=== PATIENT | male | born 1980 | race American Indian/Alaskan Native ===

== ENCOUNTER 2017-04-30 09:05 | Emergency (ER) | payer SELFPAY ==
[2017-04-30 09:15] VITALS: BP 154/117
[2017-04-30] MEDS ORDERED: ZESTRIL PO ONE (09:30)
--- NOTE | 2017-04-30 10:23 | Emergency Department Report ---
Entered by JOSS LOPEZ, acting as scribe for CRESENCIO SALAZAR PA. HPI - General Chief Complaint: Medical Clearance Time Seen by Provider: 04/30/17 09:22 - HPI HPI: 36 y/o male that is nontoxic, well nourished in appearance, no acute signs of distress with a PMHx of HTN presents with c/o a HTN medication refill. Patient states he ran out of Lisinopril 1 week ago. In the ED, patient complains of a mild headache that began this morning,but is now resolved after taking an aspirin earlier. He denies dizziness, blurry vision, chest pain, SOB, abdominal pain, nausea, and vomiting. NKDA ED Past Medical Hx - Past Medical History Previous Medical History?: Yes Hx Hypertension: Yes - Surgical History Past Surgical History?: No - Social History Smoking Status: Current Every Day Smoker Substance Use Type: None - Medications Home Medications: Home Medications Medication Instructions Recorded Confirmed Last Taken Type Nystatin [Nystatin SUSP] 10 ml PO QID #280 ml 09/05/16 Unknown Rx amLODIPine [Norvasc] 10 mg PO DAILY #7 tab 09/05/16 Unknown Rx Lisinopril [Zestril TAB] 20 mg PO QDAY #30 tablet 04/30/17 Unknown Rx ED Review of Systems ROS: Stated complaint: HIGH BP Other details as noted in HPI Comment: All other systems reviewed and negative Constitutional: denies: chills, fever Eyes: denies: eye pain, eye discharge, vision change ENT: denies: ear pain, throat pain Respiratory: denies: cough, shortness of breath, wheezing Cardiovascular: denies: chest pain, palpitations Endocrine: no symptoms reported Gastrointestinal: denies: abdominal pain, nausea, diarrhea Musculoskeletal: denies: back pain, joint swelling, arthralgia Skin: denies: rash, lesions Neurological: headache (mild). denies: weakness, numbness, paresthesias, confusion Physical Exam - Physical Exam Vital Signs: Vital Signs 04/30/17 09:10 Temperature 98.5 F Pulse Rate 92 H Respiratory 20 Rate Blood Pressure 154/117 O2 Sat by Pulse 99 Oximetry General: GENERAL: Patient is alert and oriented x 3. No apparent distress, normal gait, atraumatic. Physical Exam: HEAD: Head is normocephalic and atraumatic. EYES: Extraocular movements are intact. EARS: Symmetrical, atraumatic, non tender. NOSE: Nose symmetrical, nontender. Nares appeared normal. MOUTH:Mouth is well hydrated and without lesions. NECK: Supple. Non edematous, no carotid bruits. No lymphadenopathy or thyromegaly. LUNGS: Symmetrical with respiration. No wheezing, rales or crackles, CTAB. HEART: Regular rate and rhythm with normal S1/S2 present. No murmurs, rubs, or gallops. ABDOMEN: Soft, nondistended. Nontender to palpation on all quadrants. EXTREMITIES/MUSCULOSKELETAL: ROM intact, 2+ pulses in UE/LE, no pitting edema SKIN: Warm and dry. No lesions, ulceration or induration present NEUROLOGIC: No focal deficit. ED Course Vital Signs 04/30/17 09:10 Temperature 98.5 F Pulse Rate 92 H Respiratory 20 Rate Blood Pressure 154/117 O2 Sat by Pulse 99 Oximetry ED Medical Decision Making - Medical Decision Making 36-year-old male presents with medication refill ED course: Patient will be give 1 dose of Lisinopril 20 mg. Normal exam. Patient's blood pressure was stable prior to discharge. Discuss his symptoms return or worsen to return to the ED Patient states understanding and will follow instructions. Vital signs stable. Patient is in no acute distress. Patient had no deficit. States he will follow-up with his primary care physician. Critical care attestation.: If time is entered above; I have spent that time in minutes in the direct care of this critically ill patient, excluding procedure time. ED Disposition Clinical Impression: Medication refill, Chronic hypertension Disposition: DC-01 TO HOME OR SELFCARE Is pt being admited?: No Does the pt Need Aspirin: No Condition: Stable Instructions: Chronic Hypertension (ED), Low Sodium Diet (ED), Hypertension (ED ) Prescriptions: Lisinopril [Zestril TAB] 20 mg PO QDAY #30 tablet Referrals: ALBERT MERCHANT MD [Referring] - 3-5 Days [facility] [Outside] - 3-5 Days [facility] [Outside] - 3-5 Days Forms: Work/School Release Form(ED) This documentation as recorded by the JOHN wilkins JASMINE,accurately reflects the service I personally performed and the decisions made by ,CRESENCIO SALAZAR PA.
== END 2017-04-30 10:08 | disposition home or self-care (01) ==
LOC: ED 09:05
DX: Z76.0 Encounter for issue of repeat prescription (principal); I10 Essential (primary) hypertension; F17.210 Nicotine dependence, cigarettes, uncomplicated
CPT/HCPCS: 99282

== ENCOUNTER 2017-07-14 09:44 | Emergency (ER) | payer SELFPAY ==
--- NOTE | 2017-07-14 12:28 | Emergency Department Report ---
ED General Adult HPI - General Chief complaint: Headache Stated complaint: bAD hEADACHE, HIGH BLOOD PRESSURE Time Seen by Provider: 07/14/17 12:07 Source: patient Mode of arrival: Ambulatory Limitations: No Limitations - History of Present Illness Initial comments: PT c/o being out of his BP medication for a week. PT states he can tell that his bp is elevated because he has been having an intermittent headache x 1 week. PT states he has an appointment with his PCP tomorrow. PT states he works at [employer]. PT states 2 nights ago he was at work, and he did not feel well. 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 PT states his speech has been slurred intermittently x 2 days. PT states last night, he had a headache. PT states he woke up this morning and his R side feels flimsy. PT also states his R hand is swollen. PT states he has a hx of htn and sleep apnea. PT states he does not use a machine for his sleep apnea. PT states he never went to his appointment to have a sleep study. MD Complaint: Headache, HTN -: Gradual, week(s) (one ) Location: head Severity scale (0 -10): 7 Quality: constant Consistency: constant Improves with: medication (ASA - yesterday ) Worsens with: none Associated Symptoms: headaches, weakness. denies: chest pain, fever/chills, nausea/vomiting, syncope - Related Data Previous Rx's Medication Instructions Recorded Last Taken Type Nystatin [Nystatin SUSP] 10 ml PO QID #280 ml 09/05/16 Unknown Rx amLODIPine [Norvasc] 10 mg PO DAILY #7 tab 09/05/16 Unknown Rx Lisinopril [Zestril TAB] 20 mg PO QDAY #30 tablet 07/14/17 Unknown Rx Allergies Allergy/AdvReac Type Severity Reaction Status Date / Time No Known Allergies Allergy Verified 07/14/17 10:18 ED Review of Systems ROS: Stated complaint: bAD hEADACHE, HIGH BLOOD PRESSURE Other details as noted in HPI Comment: All other systems reviewed and negative Constitutional: weakness, other (fatigue ). denies: fever, malaise ENT: denies: ear pain, throat pain, congestion Cardiovascular: denies: chest pain, syncope Gastrointestinal: denies: abdominal pain, nausea, vomiting Musculoskeletal: as per HPI Skin: denies: rash Neurological: headache, weakness, numbness, paresthesias Psychiatric: other (frustrated from working alone and over night ) ED Past Medical Hx - Past Medical History Hx Hypertension: Yes Additional medical history: SLEEP APNEA - Surgical History Past Surgical History?: No - Social History Smoking Status: Current Every Day Smoker Substance Use Type: Alcohol - Medications Home Medications: Home Medications Medication Instructions Recorded Confirmed Last Taken Type Nystatin [Nystatin SUSP] 10 ml PO QID #280 ml 09/05/16 Unknown Rx amLODIPine [Norvasc] 10 mg PO DAILY #7 tab 09/05/16 Unknown Rx Lisinopril [Zestril TAB] 20 mg PO QDAY #30 tablet 07/14/17 Unknown Rx ED Physical Exam - General Limitations: No Limitations General appearance: other (drowsy ) - Head Head exam: Present: atraumatic, normocephalic, normal inspection - Eye Eye exam: Present: normal appearance, PERRL, EOMI. Absent: conjunctival injection, nystagmus, periorbital swelling, periorbital tenderness - ENT ENT exam: Present: normal exam, mucous membranes moist, normal external ear exam - Neck Neck exam: Present: normal inspection, tenderness, full ROM, lymphadenopathy - Respiratory Respiratory exam: Present: normal lung sounds bilaterally. Absent: respiratory distress, wheezes, rales, rhonchi - Cardiovascular Cardiovascular Exam: Present: regular rate, normal rhythm - GI/Abdominal GI/Abdominal exam: Present: soft. Absent: tenderness, guarding, rebound - Extremities Exam Extremities exam: Present: normal inspection, full ROM - Back Exam Back exam: Present: normal inspection, full ROM. Absent: tenderness, CVA tenderness (R), CVA tenderness (L) - Neurological Exam Neurological exam: Present: alert, oriented X3 - Expanded Neurological Exam Expanded Neurological exam: Present: protecting the airway Patient oriented to: Present: person, place, time Speech: Present: fluid speech Cranial nerves: EOM's Intact: Normal Motor strength exam: RUE: 4, LUE: 5 Best Eye Response ([place]): (4) open spontaneously Best Motor Response ([place]): (6) obeys commands Best Verbal Response (Sophia): (5) oriented Sophia Total: 15 - Psychiatric Psychiatric exam: Present: normal affect, normal mood - Skin Skin exam: Present: warm, dry, intact, normal color ED Course Vital Signs 07/14/17 10:20 Temperature 97.5 F L Pulse Rate 84 Respiratory 18 Rate Blood Pressure 148/110 O2 Sat by Pulse 98 Oximetry - Reevaluation(s) Reevaluation #1: 07/14/17 12:33 PT aware of plan of care. Reevaluation #2: 07/14/17 16:11 PT has been walking out of his room. Multiple times we were unable to locate pt. PT has been directed to stay in room for labs/ imaging/ reassessment. At one point pt was sitting in the hallway playing [employer]. Reevaluation #3: 07/14/17 16:25 PT not in room Reevaluation #4: 07/14/17 17:15 PT has not returned to his exam room. Reevaluation #5: 07/14/17 17:48 PT walked back to FT. PT states he has not seen anyone and he wants his dc paperwork and his RXs. PT requesting a work note. PT aware that work up is not complete. Nursing staff unable to get EKG on pt or repeat his bp due to him not staying in his exam room. PT states he went downstairs and fell asleep. PT aware he will need to follow up with PCP. - Pulse Oximetry Interpretation Digit-Finger Initial Pulse Oximetry Readin Actions Taken: none ED Medical Decision Making - Lab Data Result diagrams: 07/14/17 12:26 07/14/17 12:26 Lab Results 07/14/17 07/14/17 07/14/17 Range/Units 12:26 12:26 12:26 WBC 11.3 H (4.5-11.0) K/mm3 RBC 4.65 (3.65-5.03) M/mm3 Hgb 14.2 (11.8-15.2) gm/dl Hct 42.4 (35.5-45.6) % MCV 91 (84-94) fl MCH 31 (28-32) pg MCHC 34 (32-34) % RDW 13.4 (13.2-15.2) % Plt Count 236 (140-440) K/mm3 Lymph % (Auto) 22.9 (13.4-35.0) % [place] % (Auto) 6.5 (0.0-7.3) % Eos % (Auto) 2.6 (0.0-4.3) % Baso % (Auto) 0.5 (0.0-1.8) % Lymph # 2.6 (1.2-5.4) K/mm3 [place] # 0.7 (0.0-0.8) K/mm3 Eos # 0.3 (0.0-0.4) K/mm3 Baso # 0.1 (0.0-0.1) K/mm3 Seg Neutrophils % 67.5 (40.0-70.0) % Seg Neutrophils # 7.6 (1.8-7.7) K/mm3 PT 12.5 (12.2-14.9) Sec. INR 0.94 (0.87-1.13) APTT 31.9 (24.2-36.6) Sec. Sodium 138 (137-145) mmol/L Potassium 3.8 (3.6-5.0) mmol/L Chloride 98.2 (98-107) mmol/L Carbon Dioxide 30 (22-30) mmol/L Anion Gap 14 mmol/L BUN 16 (9-20) mg/dL Creatinine 1.1 (0.8-1.5) mg/dL Estimated GFR > 60 ml/min BUN/Creatinine Ratio 14.54 % Glucose 73 L (75-100) mg/dL Calcium 9.3 (8.4-10.2) mg/dL Total Bilirubin 0.40 (0.1-1.2) mg/dL AST 22 (5-40) units/L ALT 18 (7-56) units/L Alkaline Phosphatase 46 (35-129) units/L Total Creatine Kinase 483 H (55-170) units/L CK-MB (CK-2) 7.4 H (0.0-4.0) ng/mL CK-MB (CK-2) Rel Index 1.5 (0-4) Troponin T < 0.010 (0.00-0.029) ng/mL Total Protein 7.3 (6.3-8.2) g/dL Albumin 3.9 (3.9-5) g/dL Albumin/Globulin Ratio 1.1 % Urine Color (Yellow) Urine Turbidity (Clear) Urine pH (5.0-7.0) Ur Specific [place] (1.003-1.030) Urine Protein (Negative) mg/dL Urine Glucose (UA) (Negative) mg/dL Urine Ketones (Negative) mg/dL Urine Blood (Negative) Urine Nitrite (Negative) Urine Bilirubin (Negative) Urine Urobilinogen (<2.0) mg/dL Ur Leukocyte Esterase (Negative) Urine WBC (Auto) (0.0-6.0) /HPF Urine RBC (Auto) (0.0-6.0) /HPF U Epithel Cells (Auto) (0-13.0) /HPF Urine Mucus /HPF Urine Opiates Screen Urine Methadone Screen Ur Barbiturates Screen Ur Phencyclidine Scrn Ur Amphetamines Screen U Benzodiazepines Scrn Urine Cocaine Screen U Marijuana (THC) Screen Drugs of Abuse Note Plasma/Serum Alcohol (0-0.07) gm% 07/14/17 07/14/17 07/14/17 Range/Units 12:26 15:30 15:30 WBC (4.5-11.0) K/mm3 RBC (3.65-5.03) M/mm3 Hgb (11.8-15.2) gm/dl Hct (35.5-45.6) % MCV (84-94) fl MCH (28-32) pg MCHC (32-34) % RDW (13.2-15.2) % Plt Count (140-440) K/mm3 Lymph % (Auto) (13.4-35.0) % [place] % (Auto) (0.0-7.3) % Eos % (Auto) (0.0-4.3) % Baso % (Auto) (0.0-1.8) % Lymph # (1.2-5.4) K/mm3 [place] # (0.0-0.8) K/mm3 Eos # (0.0-0.4) K/mm3 Baso # (0.0-0.1) K/mm3 Seg Neutrophils % (40.0-70.0) % Seg Neutrophils # (1.8-7.7) K/mm3 PT (12.2-14.9) Sec. INR (0.87-1.13) APTT (24.2-36.6) Sec. Sodium (137-145) mmol/L Potassium (3.6-5.0) mmol/L Chloride (98-107) mmol/L Carbon Dioxide (22-30) mmol/L Anion Gap mmol/L BUN (9-20) mg/dL Creatinine (0.8-1.5) mg/dL Estimated GFR ml/min BUN/Creatinine Ratio % Glucose (75-100) mg/dL Calcium (8.4-10.2) mg/dL Total Bilirubin (0.1-1.2) mg/dL AST (5-40) units/L ALT (7-56) units/L Alkaline Phosphatase (35-129) units/L Total Creatine Kinase (55-170) units/L CK-MB (CK-2) (0.0-4.0) ng/mL CK-MB (CK-2) Rel Index (0-4) Troponin T (0.00-0.029) ng/mL Total Protein (6.3-8.2) g/dL Albumin (3.9-5) g/dL Albumin/Globulin Ratio % Urine Color Yellow (Yellow) Urine Turbidity Clear (Clear) Urine pH 5.0 (5.0-7.0) Ur Specific [place] 1.025 (1.003-1.030) Urine Protein <15 mg/dl (Negative) mg/dL Urine Glucose (UA) Neg (Negative) mg/dL Urine Ketones Neg (Negative) mg/dL Urine Blood Neg (Negative) Urine Nitrite Neg (Negative) Urine Bilirubin Neg (Negative) Urine Urobilinogen < 2.0 (<2.0) mg/dL Ur Leukocyte Esterase Neg (Negative) Urine WBC (Auto) 1.0 (0.0-6.0) /HPF Urine RBC (Auto) 2.0 (0.0-6.0) /HPF U Epithel Cells (Auto) < 1.0 (0-13.0) /HPF Urine Mucus Few /HPF Urine Opiates Screen Presumptive negative Urine Methadone Screen Presumptive negative Ur Barbiturates Screen Presumptive negative Ur Phencyclidine Scrn Presumptive negative Ur Amphetamines Screen Presumptive positive U Benzodiazepines Scrn Presumptive negative Urine Cocaine Screen Presumptive negative U Marijuana (THC) Screen Presumptive negative Drugs of Abuse Note Disclamer Plasma/Serum Alcohol < 0.01 (0-0.07) gm% - Radiology Data Radiology results: report reviewed CT head - NAP - Differential Diagnosis cva, non compliance, drug use, Critical Care Time: No Critical care attestation.: If time is entered above; I have spent that time in minutes in the direct care of this critically ill patient, excluding procedure time. ED Disposition Clinical Impression: Non compliance with medical treatment, Amphetamine abuse Hypertension Qualifiers: Hypertension type: essential hypertension Qualified Code(s): I10 - Essential ( primary) hypertension Disposition: LEFT AGAINST MED ADVICE Is pt being admited?: No Does the pt Need Aspirin: No Condition: Stable Instructions: Hypertension (ED) Additional Instructions: Follow up with PCP in the next 3 days for BP recheck Return to the ED if worsening or concerns Avoid stimulants/ caffeine as these can raise your bp Prescriptions: Lisinopril [Zestril TAB] 20 mg PO QDAY #30 tablet Referrals: PRIMARY CAREMD [Primary Care Provider] - 3-5 Days MARISSA GILL MD [Staff Physician] - 3-5 Days [facility] [Outside] - 3-5 Days Forms: AMA Form, Work/School Release Form(ED) Time of Disposition: 17:16
[2017-07-14 12:44] LABS: Basophils % (Auto) 0.5 % (0.0-1.8); Eosinophils % (Auto) 2.6 % (0.0-4.3); Hematocrit 42.4 % (35.5-45.6); Hemoglobin 14.2 gm/dl (11.8-15.2); Mean Corpuscular HGB Conc 34 % (32-34); Mean Corpuscular Hemoglobin 31 pg (28-32); Mean Corpuscular Volume 91 fl (84-94); Platelet Count 236 K/mm3 (140-440); Red Blood Count 4.65 M/mm3 (3.65-5.03); Red Cell Distribution Width 13.4 % (13.2-15.2); White Blood Count 11.3 K/mm3 (4.5-11.0)
[2017-07-14 12:53] LABS: INR 0.94 (0.87-1.13)
[2017-07-14 12:54] LABS: Partial Thromboplastin Time 31.9 Sec. (24.2-36.6)
[2017-07-14 13:06] LABS: Creatine Kinase MB 7.4 ng/mL (0.0-4.0)
[2017-07-14 13:07] LABS: Alanine Aminotransferase 18 units/L (7-56); Albumin 3.9 g/dL (3.9-5); Albumin/Globulin Ratio 1.1 %; Alkaline Phosphatase 46 units/L (35-129); Anion Gap 14 mmol/L; BUN/Creatinine Ratio 14.54; Blood Urea Nitrogen 16 mg/dL (9-20); Calcium 9.3 mg/dL (8.4-10.2); Carbon Dioxide 30 mmol/L (22-30); Chloride 98.2 mmol/L (98-107); Creatine Kinase 483 units/L (55-170); Glucose 73 mg/dL (75-100); Potassium 3.8 mmol/L (3.6-5.0); Sodium 138 mmol/L (137-145); Total Protein 7.3 g/dL (6.3-8.2)
--- NOTE | 2017-07-14 13:11 | Cat Scan Report ---
CT scan of head without IV contrast: History: Hypertension, such lower speech. Right sided weakness. Findings: Ventricles are normal in size and midline in location. No evidence of acute ischemia, hemorrhage or mass. No extra-axial fluid collection. Normal brainstem and cerebellum. 1 cm retention cyst medial wall of right maxillary sinus. Mucosal thickening left maxillary sinus. Normal mastoid. Impression: No acute intracranial abnormality. Sinus disease.
[2017-07-14 15:31] LABS: Urine Drugs of Abuse Note Disclamer
[2017-07-14 15:49] LABS: Bilirubin,Urine NEG (Negative); Blood,Urine NEG (Negative); Ketones,Urine NEG (Negative); Leukocyte Esterase,Urine NEG (Negative); Mucus,Urine FEW /HPF; Nitrite,Urine NEG (Negative); Protein,Urine <15 mg/dL mg/dL (Negative); Urobilinogen,Urine < 2.0 mg/dL (<2.0)
[2017-07-14 19:09] VITALS: BP 155/95
== END 2017-07-14 17:50 | disposition left against medical advice (07) ==
LOC: ED 09:44
DX: I10 Essential (primary) hypertension (principal); F15.10 Other stimulant abuse, uncomplicated; F17.210 Nicotine dependence, cigarettes, uncomplicated
CPT/HCPCS: 36415; 70450; 80053; 80307; 81001; 82550; 82553; 84484; 85025; 85610; 85730; 99284; G0480; 80320

== ENCOUNTER 2019-02-13 21:43 | Emergency (ER) | payer SELFPAY ==
--- NOTE | 2019-02-13 21:53 | Emergency Department Report ---
Blank Doc - Documentation Documentation: This is a 38-year-old male that presents with a foreign body sensation to right eye. Patient stated he believes that a glass particle hit his eye. Denies any visual changes. This initial assessment/diagnostic orders/clinical plan/treatment(s) is/are subject to change based on patient's health status, clinical progression and re- assessment by fellow clinical providers in the ED. Further treatment and workup at subsequent clinical providers discretion. Patient/guardians urged not to elope from the ED as their condition may be serious if not clinically assessed and managed. Initial orders include: 1- Patient sent to [facility] for further evaluation and treatment 2- monet lamp
[2019-02-14] MEDS ORDERED: BSS OU ONE (00:42)
[2019-02-14] MEDS ORDERED: FUL-GLO OP ONE (00:42)
--- NOTE | 2019-02-14 01:00 | Emergency Department Report ---
ED Eye Problem HPI - General Chief complaint: Eye Problems Stated complaint: POSS GLASS IN R EYE Time Seen by Provider: 02/13/19 21:51 Source: patient Mode of arrival: Ambulatory Limitations: No Limitations - History of Present Illness chief complaint: eye pain, eye redness, eye injury -: hour(s) Location: left eye Place: work (glass broke on the floor at work and popped up to his right calls and pain with blinking irritation. He tried to rinse the eye out with warm water and salt water, but continues to have a foreign body sensation and some pain. No blurry vision. No bleeding) Severity: mild Consistency: constant Associated Symptoms: none Treatments Prior to Arrival: none - Related Data Previous Rx's Medication Instructions Recorded Last Taken Type Nystatin [Nystatin SUSP] 10 ml PO QID #280 ml 09/05/16 Unknown Rx amLODIPine [Norvasc] 10 mg PO DAILY #7 tab 09/05/16 Unknown Rx Lisinopril [Zestril TAB] 20 mg PO QDAY #30 tablet 07/14/17 Unknown Rx Ketorolac Tromethamine [Ketorolac 1 drop OP Q8HR #5 ml 02/14/19 Unknown Rx Tromethamine 0.4% opth soln] Tobramycin [Tobrex] 1 drop OP Q4H #1 bottle 02/14/19 Unknown Rx Allergies Allergy/AdvReac Type Severity Reaction Status Date / Time No Known Allergies Allergy Verified 07/14/17 10:18 ED Review of Systems ROS: Stated complaint: POSS GLASS IN R EYE Other details as noted in HPI Constitutional: denies: chills, fever Eyes: denies: eye pain, eye discharge, vision change ENT: denies: ear pain, throat pain Respiratory: denies: cough, shortness of breath, wheezing Cardiovascular: denies: chest pain, palpitations Endocrine: no symptoms reported Gastrointestinal: denies: abdominal pain, nausea, diarrhea Genitourinary: denies: urgency, dysuria Musculoskeletal: denies: back pain, joint swelling, arthralgia Skin: denies: rash, lesions Neurological: denies: headache, weakness, paresthesias Psychiatric: denies: anxiety, depression Hematological/Lymphatic: denies: easy bleeding, easy bruising ED Past Medical Hx - Past Medical History Previous Medical History?: Yes Hx Hypertension: Yes Additional medical history: SLEEP APNEA - Surgical History Past Surgical History?: No - Social History Smoking Status: Current Every Day Smoker Substance Use Type: None - Medications Home Medications: Home Medications Medication Instructions Recorded Confirmed Last Taken Type Nystatin [Nystatin SUSP] 10 ml PO QID #280 ml 09/05/16 Unknown Rx amLODIPine [Norvasc] 10 mg PO DAILY #7 tab 09/05/16 Unknown Rx Lisinopril [Zestril TAB] 20 mg PO QDAY #30 tablet 07/14/17 Unknown Rx Ketorolac Tromethamine [Ketorolac 1 drop OP Q8HR #5 ml 02/14/19 Unknown Rx Tromethamine 0.4% opth soln] Tobramycin [Tobrex] 1 drop OP Q4H #1 bottle 02/14/19 Unknown Rx ED Physical Exam - General Limitations: No Limitations General appearance: alert, in no apparent distress - Head Head exam: Present: atraumatic, normocephalic - Eye Eye exam: Present: normal appearance, PERRL, EOMI, conjunctival injection Pupils: Present: normal accommodation - Expanded Eye Exam Expanded Pupils: Regular, Round: Bilateral, Reactive: Bilateral Sclera/Conjunctival: Injection: Right (small area of corneal abrasion. Conjunctiva not involving the pupil.) - ENT ENT exam: Present: normal exam, normal orophraynx, mucous membranes moist, TM's normal bilaterally - Neck Neck exam: Present: normal inspection, full ROM - Respiratory Respiratory exam: Present: normal lung sounds bilaterally. Absent: respiratory distress, rhonchi, stridor, chest wall tenderness, decreased breath sounds, prolonged expiratory - Cardiovascular Cardiovascular Exam: Present: regular rate, normal rhythm. Absent: systolic murmur, diastolic murmur, rubs, gallop - GI/Abdominal GI/Abdominal exam: Present: soft, normal bowel sounds. Absent: tenderness, guarding, hyperactive bowel sounds, hypoactive bowel sounds - Rectal Rectal exam: Present: deferred - Extremities Exam Extremities exam: Present: normal inspection, full ROM, normal capillary refill. Absent: pedal edema, joint swelling - Back Exam Back exam: Present: normal inspection - Neurological Exam Neurological exam: Present: alert, oriented X3, CN II-XII intact - Psychiatric Psychiatric exam: Present: normal affect, normal mood - Skin Skin exam: Present: warm, dry, intact, normal color. Absent: rash ED Course Vital Signs 02/13/19 21:50 Temperature 98.6 F Pulse Rate 95 H Respiratory 20 Rate Blood Pressure 180/118 O2 Sat by Pulse 93 Oximetry Critical care attestation.: If time is entered above; I have spent that time in minutes in the direct care of this critically ill patient, excluding procedure time. ED Disposition Clinical Impression: Corneal abrasion, Eye irritation Disposition: DC-01 TO HOME OR SELFCARE Is pt being admited?: No Does the pt Need Aspirin: No Condition: Stable Instructions: How to Use Eye Drops (ED), Eye Pain (ED) Additional Instructions: 3. Be sure to follow-up with ophthalmology in 24-48 hours
[2019-02-14 01:36] VITALS: BP 188/132
== END 2019-02-14 01:38 | disposition home or self-care (01) ==
LOC: ED 21:43
DX: S05.01XA Injury of conjunctiva and corneal abrasion without foreign body, right eye, initial encounter (principal); I10 Essential (primary) hypertension; F17.200 Nicotine dependence, unspecified, uncomplicated; X58.XXXA Exposure to other specified factors, initial encounter; Y93.89 Activity, other specified; Y92.89 Other specified places as the place of occurrence of the external cause; Y99.8 Other external cause status

== ENCOUNTER 2019-06-26 13:03 | Emergency (ER) | payer OTHER ==
--- NOTE | 2019-06-26 13:11 | Emergency Department Report ---
Blank Doc - Documentation Documentation: This is a 38-year-old male that presents with CP and SOB. This initial assessment/diagnostic orders/clinical plan/treatment(s) is/are subject to change based on patient's health status, clinical progression and re- assessment by fellow clinical providers in the ED. Further treatment and workup at subsequent clinical providers discretion. Patient/guardians urged not to elope from the ED as their condition may be serious if not clinically assessed and managed. Initial orders include: 1- Patient sent to [facility] for further evaluation and treatment 2- labs 3- EKG 4- CXR
[2019-06-26 13:27] LABS: Basophils # (Auto) 0.1 K/mm3 (0.0-0.1); Basophils % (Auto) 0.7 % (0.0-1.8); Eosinophils # (Auto) 0.1 K/mm3 (0.0-0.4); Eosinophils % (Auto) 1.3 % (0.0-4.3); Hematocrit 42.3 % (35.5-45.6); Lymphocytes # (Auto) 3.5 K/mm3 (1.2-5.4); Lymphocytes % (Auto) 33.6 % (13.4-35.0); Mean Corpuscular HGB Conc 33 % (32-34); Mean Corpuscular Volume 93 fl (84-94); Monocytes # (Auto) 0.6 K/mm3 (0.0-0.8); Monocytes % (Auto) 5.7 % (0.0-7.3); Platelet Count 206 K/mm3 (140-440); Red Blood Count 4.57 M/mm3 (3.65-5.03); Red Cell Distribution Width 13.8 % (13.2-15.2)
[2019-06-26 13:37] LABS: INR 1.07 (0.87-1.13)
--- NOTE | 2019-06-26 13:37 | XRay Report ---
CHEST 2 VIEWS INDICATION: Chest Pain. COMPARISON: None FINDINGS: Support devices: None. Heart: Mild cardiomegaly. Lungs/pleura: Mild central pulmonary venous congestion is identified. No evidence for infiltrate, pl eural effusion or pneumothorax. Additional findings: None. IMPRESSION: Mild cardiomegaly and central pulmonary venous congestion. Signer Name: Obed Lucero Jr, MD Signed: 06/26/2019 1:33 PM Workstation Name: [id number]
[2019-06-26 13:38] LABS: Partial Thromboplastin Time 28.8 Sec. (24.2-36.6)
[2019-06-26 13:55] LABS: BUN/Creatinine Ratio 13; Blood Urea Nitrogen 17 mg/dL (9-20); Calcium 8.6 mg/dL (8.4-10.2); Hemolysis Index 7
[2019-06-26] MEDS ORDERED: APRESOLINE PO ONE (17:44)
[2019-06-26] MEDS ORDERED: LASIX IV ONE (19:00)
--- NOTE | 2019-06-26 19:33 | Emergency Department Report ---
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 He'll) Consistency: intermittent Improves With: rest Worsens With: nothing Known History Of: other (HTN, Sleep Apnea ) Context: recent URI Associated Symptoms: chest pain, cough Treatments Prior to Arrival: none - Related Data Previous Rx's Medication Instructions Recorded Last Taken Type Nystatin [Nystatin SUSP] 10 ml PO QID #280 ml 09/05/16 Unknown Rx amLODIPine [Norvasc] 10 mg PO DAILY #7 tab 09/05/16 Unknown Rx Lisinopril [Zestril TAB] 20 mg PO QDAY #30 tablet 07/14/17 Unknown Rx Ketorolac Tromethamine [Ketorolac 1 drop OP Q8HR #5 ml 02/14/19 Unknown Rx Tromethamine 0.4% opth soln] Tobramycin [Tobrex] 1 drop OP Q4H #1 bottle 02/14/19 Unknown Rx Furosemide [Lasix TAB] 40 mg PO QDAY #3 tablet 06/26/19 Unknown Rx Lisinopril [Zestril TAB] 20 mg PO QDAY #30 tablet 06/26/19 Unknown Rx amLODIPine [Norvasc] 10 mg PO DAILY 30 Days #30 tab 06/26/19 Unknown Rx Allergies Allergy/AdvReac Type Severity Reaction Status Date / Time No Known Allergies Allergy Verified 07/14/17 10:18 ED Review of Systems ROS: Stated complaint: SOB/CHEST PAIN Other details as noted in HPI Constitutional: denies: chills, fever Eyes: denies: eye pain, eye discharge, vision change ENT: denies: ear pain, throat pain Respiratory: cough, shortness of breath. denies: orthopnea, wheezing Cardiovascular: chest pain. denies: palpitations, dyspnea on exertion, orthopnea, paroxysmal nocturnal dyspnea Endocrine: no symptoms reported Gastrointestinal: denies: abdominal pain, nausea, diarrhea Genitourinary: denies: urgency, dysuria Musculoskeletal: denies: back pain, joint swelling, arthralgia Skin: denies: rash, lesions Neurological: denies: headache, weakness, paresthesias Psychiatric: denies: anxiety, depression Hematological/Lymphatic: denies: easy bleeding, easy bruising ED Past Medical Hx - Past Medical History Previous Medical History?: Yes Hx Hypertension: Yes Additional medical history: SLEEP APNEA - Social History Smoking Status: Never Smoker Substance Use Type: None - Medications Home Medications: Home Medications Medication Instructions Recorded Confirmed Last Taken Type Nystatin [Nystatin SUSP] 10 ml PO QID #280 ml 09/05/16 Unknown Rx amLODIPine [Norvasc] 10 mg PO DAILY #7 tab 09/05/16 Unknown Rx Lisinopril [Zestril TAB] 20 mg PO QDAY #30 tablet 07/14/17 Unknown Rx Ketorolac Tromethamine [Ketorolac 1 drop OP Q8HR #5 ml 02/14/19 Unknown Rx Tromethamine 0.4% opth soln] Tobramycin [Tobrex] 1 drop OP Q4H #1 bottle 02/14/19 Unknown Rx Furosemide [Lasix TAB] 40 mg PO QDAY #3 tablet 06/26/19 Unknown Rx Lisinopril [Zestril TAB] 20 mg PO QDAY #30 tablet 06/26/19 Unknown Rx amLODIPine [Norvasc] 10 mg PO DAILY 30 Days #30 tab 06/26/19 Unknown Rx ED Physical Exam - General Limitations: No Limitations General appearance: alert, in no apparent distress - Head Head exam: Present: atraumatic, normocephalic - Eye Eye exam: Present: normal appearance, PERRL, EOMI Pupils: Present: normal accommodation - ENT ENT exam: Present: mucous membranes moist. Absent: normal orophraynx, TM's normal bilaterally, normal external ear exam - Neck Neck exam: Present: normal inspection, full ROM. Absent: tenderness, lymphadenopathy, thyromegaly - Expanded Neck Exam Expanded Neck exam: Absent: tenderness, midline deformity, anterior neck swelling, thyroid mass, carotid bruit, tracheal deviation - Respiratory Respiratory exam: Present: normal lung sounds bilaterally. Absent: respiratory distress, wheezes, rales, rhonchi, stridor, chest wall tenderness - Cardiovascular Cardiovascular Exam: Present: regular rate, normal rhythm, normal heart sounds. Absent: systolic murmur, diastolic murmur, rubs, gallop, JVD - GI/Abdominal GI/Abdominal exam: Present: soft, normal bowel sounds. Absent: distended, tenderness, bruit, hernia - Rectal Rectal exam: Present: deferred - Extremities Exam Extremities exam: Present: normal inspection, full ROM, normal capillary refill. Absent: tenderness, pedal edema, calf tenderness - Back Exam Back exam: Present: normal inspection, full ROM. Absent: tenderness, CVA tenderness (R), CVA tenderness (L), rash noted - Neurological Exam Neurological exam: Present: alert, oriented X3, CN II-XII intact, normal gait, reflexes normal. Absent: motor sensory deficit - Psychiatric Psychiatric exam: Present: normal affect, normal mood - Skin Skin exam: Present: warm, dry, intact, normal color. Absent: rash ED Course Vital Signs 06/26/19 06/26/19 13:30 18:21 Temperature 97.7 F Pulse Rate 108 H 99 H Respiratory 19 Rate Blood Pressure 144/117 Blood Pressure 153/119 [Left] O2 Sat by Pulse 97 Oximetry ED Medical Decision Making - Lab Data Result diagrams: 06/26/19 13:16 06/26/19 13:16 Labs 06/26/19 06/26/19 06/26/19 13:16 13:16 13:16 WBC 10.3 RBC 4.57 Hgb 14.0 Hct 42.3 MCV 93 MCH 31 MCHC 33 RDW 13.8 Plt Count 206 Lymph % (Auto) 33.6 [place] % (Auto) 5.7 Eos % (Auto) 1.3 Baso % (Auto) 0.7 Lymph # 3.5 [place] # 0.6 Eos # 0.1 Baso # 0.1 Seg Neutrophils % 58.7 Seg Neutrophils # 6.1 PT 13.6 INR 1.07 APTT 28.8 Sodium 142 Potassium 4.0 Chloride 105.7 Carbon Dioxide 28 Anion Gap 12 BUN 17 Creatinine 1.3 Estimated GFR > 60 BUN/Creatinine Ratio 13 Glucose 112 H Calcium 8.6 Troponin T < 0.010 NT-Pro-B Natriuret Pep 06/26/19 06/26/19 15:34 17:59 WBC RBC Hgb Hct MCV MCH MCHC RDW Plt Count Lymph % (Auto) [place] % (Auto) Eos % (Auto) Baso % (Auto) Lymph # [place] # Eos # Baso # Seg Neutrophils % Seg Neutrophils # PT INR APTT Sodium Potassium Chloride Carbon Dioxide Anion Gap BUN Creatinine Estimated GFR BUN/Creatinine Ratio Glucose Calcium Troponin T < 0.010 NT-Pro-B Natriuret Pep 2048 H - EKG Data EKG shows normal: sinus rhythm - EKG Data Interpretation: no acute changes, LVH, other (EKG interp by ed attending no ST Elevated [place]) - Radiology Data Radiology results: report reviewed, image reviewed Ordering Physician: LEONEL ALANIZ NP Date of Service: 06/26/19 Procedure(s): XR chest routine 2V Accession Number(s): [id number] cc: LEONEL ALANIZ NP Fluoro Time In Minutes: CHEST 2 VIEWS INDICATION: Chest Pain. COMPARISON: None FINDINGS: Support devices: None. Heart: Mild cardiomegaly. Lungs/pleura: Mild central pulmonary venous congestion is identified. No evidence for infiltrate, pleural effusion or pneumothorax. Additional findings: None. IMPRESSION: Mild cardiomegaly and central pulmonary venous congestion. Signer Name: Obed Lucero Jr, MD Signed: 06/26/2019 1:33 PM Workstation Name: [id number] Transcribed By: TTR Dictated By: OBED LUCERO JR, MD Electronically Authenticated By: OBED LUCERO JR, MD Signed Date/Time: 06/26/191332 DD/ 133 TD/TT: - Medical Decision Making 6N Nichol with mild venous pulmonary congestion no pleural effusion disease no infiltrates BNP noted at 2048 patient offered admission declines same advises he will follow up outpatient symptoms improved after Lasix and hydralazine plan refill BP medications Lasix by mouth 3 days follow-up with cardiology follow-up with PCP return to ED should symptoms worsen lung sounds are currently clear patient is ambulatory throughout ED without increased shortness of breath there is no crackles no wheezing no rhonchi there is no chest pain heart score is 2 for history and risk factors , PERC score is 0, this is not a PE , patient is alert oriented ambulatory with no acute distress at this time Critical care attestation.: If time is entered above; I have spent that time in minutes in the direct care of this critically ill patient, excluding procedure time. ED Disposition Clinical Impression: SOB (shortness of breath) HTN (hypertension) Qualifiers: Hypertension type: essential hypertension Qualified Code(s): I10 - Essential (primary) hypertension Disposition: TO HOME OR SELFCARE Is pt being admited?: No Does the pt Need Aspirin: No Condition: Stable Instructions: Hypertension (ED), Chest Pain (ED) Prescriptions: Furosemide [Lasix TAB] 40 mg PO QDAY #3 tablet amLODIPine [Norvasc] 10 mg PO DAILY 30 Days #30 tab Lisinopril [Zestril TAB] 20 mg PO QDAY #30 tablet Referrals: APRIL CLEANING MD [Staff Physician] - MOHIT TONO SY MD [Staff Physician] - MOHIT Forms: Work/School Release Form(ED) Time of Disposition: 20:17
[2019-06-26 20:28] VITALS: BP 140/100
== END 2019-06-26 20:27 | disposition home or self-care (01) ==
LOC: ED 13:03
DX: R06.02 Shortness of breath (principal); I10 Essential (primary) hypertension; G47.30 Sleep apnea, unspecified; Z99.89 Dependence on other enabling machines and devices; Z79.899 Other long term (current) drug therapy
CPT/HCPCS: 36415; 71046; 80048; 83880; 84484; 85025; 85610; 85730; 93005; 93010; 96374; 99284; J1940

== ENCOUNTER 2019-06-27 08:30 | Inpatient (IN) | payer MEDICARE, OTHER ==
[2019-06-27] MEDS ORDERED: LASIX PO ONE (09:17)
[2019-06-27 09:48] LABS: Basophils # (Auto) 0.1 K/mm3 (0.0-0.1); Basophils % (Auto) 0.8 % (0.0-1.8); Eosinophils # (Auto) 0.2 K/mm3 (0.0-0.4); Eosinophils % (Auto) 1.7 % (0.0-4.3); Hematocrit 41.7 % (35.5-45.6); Hemoglobin 14.1 gm/dl (11.8-15.2); Lymphocytes # (Auto) 2.1 K/mm3 (1.2-5.4); Lymphocytes % (Auto) 19.3 % (13.4-35.0); Mean Corpuscular HGB Conc 34 % (32-34); Mean Corpuscular Volume 92 fl (84-94); Monocytes # (Auto) 0.6 K/mm3 (0.0-0.8); Monocytes % (Auto) 5.3 % (0.0-7.3); Platelet Count 193 K/mm3 (140-440); Red Blood Count 4.53 M/mm3 (3.65-5.03); Red Cell Distribution Width 13.6 % (13.2-15.2)
--- NOTE | 2019-06-27 10:14 | XRay Report ---
CHEST 2 VIEWS INDICATION / CLINICAL INFORMATION: evaluation of pulmn edema. COMPARISON: 06/26/2019 FINDINGS: SUPPORT DEVICES: None. HEART / MEDIASTINUM: Stable mild cardiomegaly with pulmonary venous hypertension LUNGS / PLEURA: No significant pulmonary or pleural abnormality. No pneumothorax. ADDITIONAL FINDINGS: No significant additional findings. IMPRESSION: 1. Cardiomegaly and pulmonary venous hypertension without pulmonary edema, no change. Signer Name: Wing Armendariz MD Signed: 06/27/2019 10:10 AM Workstation Name: [id number]
[2019-06-27 11:06] LABS: BUN/Creatinine Ratio 15; Blood Urea Nitrogen 20 mg/dL (9-20); Calcium 8.5 mg/dL (8.4-10.2); Hemolysis Index 44
--- NOTE | 2019-06-27 11:37 | Consultation ---
History of Present Illness Consult date: 06/27/19 Requesting physician: LACHELLE THORPE Consult reason: congestive heart failure History of present illness: Patient is a 38-year-old male with a history of hypertension, suspected sleep apnea, tobacco use, ETOH use. He is previously unknown to our practice. He presented with c/o SOB. Pt actually presented to ED yesterday with c/o SOB, orthopnea and PND for the past several days. He did not wish to be hospitalized yesterday so he received IV lasix and was sent home. He returns today stating that he now wishes to be hospitalized. Pt denies any chest pain, edema, palpitations, n/v, diaphoresis, dizziness or syncope. Pt denies any known prior CAD, AMI, HF or arrhythmia, although he does not regularly see doctors. [place] and has had some annual physicals done at work and this is how he knows he has HTN. Pt does not currently take any prescription medications. Past History Past Medical History: hypertension, other (suspected DIANN) Social history: smoking, alcohol abuse Medications and Allergies Allergies Allergy/AdvReac Type Severity Reaction Status Date / Time No Known Allergies Allergy Verified 07/14/17 10:18 Home Medications Medication Instructions Recorded Confirmed Last Taken Type Nystatin [Nystatin SUSP] 10 ml PO QID #280 ml 09/05/16 Unknown Rx amLODIPine [Norvasc] 10 mg PO DAILY #7 tab 09/05/16 Unknown Rx Lisinopril [Zestril TAB] 20 mg PO QDAY #30 tablet 07/14/17 Unknown Rx Ketorolac Tromethamine [Ketorolac 1 drop OP Q8HR #5 ml 02/14/19 Unknown Rx Tromethamine 0.4% opth soln] Tobramycin [Tobrex] 1 drop OP Q4H #1 bottle 02/14/19 Unknown Rx Furosemide [Lasix TAB] 40 mg PO QDAY #3 tablet 06/26/19 Unknown Rx Lisinopril [Zestril TAB] 20 mg PO QDAY #30 tablet 06/26/19 Unknown Rx amLODIPine [Norvasc] 10 mg PO DAILY 30 Days #30 tab 06/26/19 Unknown Rx Review of Systems Constitutional: no weight loss, no weight gain, no fever, no chills, no sweats Ears, nose, mouth and throat: no ear pain, no nose pain, no sinus pressure, no sinus pain Cardiovascular: orthopnea, shortness of breath, dyspnea on exertion, paroxysmal nocturnal dyspnea, high blood pressure, no chest pain, no palpitations, no rapid/irregular heart beat, no edema, no syncope, no lightheadedness, no leg edema Respiratory: shortness of breath, dyspnea on exertion, no cough, no congestion, no wheezing, no pain on inspiration Gastrointestinal: no abdominal pain, no nausea, no vomiting, no diarrhea, no constipation, no change in bowel habits Genitourinary Male: no dysuria, no hematuria, no flank pain, no discharge, no urinary frequency, no urinary hesitancy Musculoskeletal: no neck stiffness, no neck pain, no shooting arm pain, no arm numbness/tingling, no low back pain, no shooting leg pain Integumentary: no rash, no pruritis, no redness, no sores, no wounds Neurological: no head injury, no paralysis, no weakness, no parathesias, no numbness, no tingling, no seizures, no syncope Psychiatric: no anxiety Endocrine: no cold intolerance, no heat intolerance Hematologic/Lymphatic: no easy bruising, no easy bleeding Allergic/Immunologic: no urticaria, no wheezing Physical Examination Vital Signs Temp Pulse Resp BP Pulse Ox 98.0 F 98 H 20 137/101 96 06/27/19 08:32 06/27/19 08:32 06/27/19 08:32 06/27/19 08:32 06/27/19 08:32 General appearance: no acute distress HEENT: Positive: PERRL, Normocephaly, Mucus Membranes Moist Neck: Positive: neck supple, trachea midline Cardiac: Positive: Reg Rate and Rhythm, S1/S2 Lungs: Positive: Decreased Breath Sounds Neuro: Positive: Grossly Intact Abdomen: Negative: Tender Skin: Negative: Rash Musculoskeletal: No Pain Extremities: Absent: edema Results 06/27/19 09:33 06/27/19 09:33 CBC 06/27/19 Range/Units 09:33 WBC 10.8 (4.5-11.0) K/mm3 RBC 4.53 (3.65-5.03) M/mm3 Hgb 14.1 (11.8-15.2) gm/dl Hct 41.7 (35.5-45.6) % Plt Count 193 (140-440) K/mm3 Lymph # 2.1 (1.2-5.4) K/mm3 [place] # 0.6 (0.0-0.8) K/mm3 Eos # 0.2 (0.0-0.4) K/mm3 Baso # 0.1 (0.0-0.1) K/mm3 Comprehensive Metabolic Panel 06/27/19 Range/Units 09:33 Sodium 140 (137-145) mmol/L Potassium 4.1 (3.6-5.0) mmol/L Chloride 103.2 (98-107) mmol/L Carbon Dioxide 26 (22-30) mmol/L BUN 20 (9-20) mg/dL Creatinine 1.3 (0.8-1.5) mg/dL Glucose 145 H (75-100) mg/dL Calcium 8.5 (8.4-10.2) mg/dL - Imaging and Cardiology Echo: pending EKG: report reviewed, image reviewed EKG interpretations - Telemetry EKG Rhythm: Sinus Rhythm - EKG Sinus rhythms and dysrhythmias: sinus rhythm Chamber hypertrophy or enlargement: left ventricular hypertro Assessment and Plan Pt presented with suspected new acute heart failure and uncontrolled HTN. Obtain echo. Optimize anti-hypertensive regimen and initiate scheduled IV lasix BID. Monitor renal indices. Further recs to follow per hospital course. The patient has been seen in conjunction with Dr. Smith who agrees with the assessment and plan of care. - Patient Problems (1) Acute heart failure Current Visit: Yes Status: Acute (2) Uncontrolled hypertension Current Visit: Yes Status: Chronic (3) Sleep apnea Current Visit: Yes Status: Suspected (4) Tobacco use Current Visit: Yes Status: Chronic (5) Alcohol use Current Visit: Yes Status: Chronic
[2019-06-27] MEDS ORDERED: COREG PO SCH ×2 (12:00→22:00)
--- NOTE | 2019-06-27 12:38 | Emergency Department Report ---
ED General Adult HPI - General Chief complaint: Dyspnea/Respdistress Stated complaint: FLUID IN LUNGS/WAS HERE YESTERDAY Time Seen by Provider: 06/27/19 09:01 Source: patient Mode of arrival: Ambulatory Limitations: No Limitations - History of Present Illness Initial comments: Patient is a 38-year-old male who presented yesterday with shortness of breath as well as some mild chest discomfort. Certainly breath worse with exertion and with lying flat. Patient was unable to sleep of this several nights prior to his arrival yesterday. Patient had elevated BNP and elevated blood pressure and he was diagnosed with probable congestive heart failure. Patient was to be admitted yesterday however he stated he wanted to come back and did not want to stay at that time. Patient was given Lasix yesterday the patient did start to diurese before leaving. Patient was returned today. States his shortness of breath is slightly improved however is still present. He does have lower extremity edema. States there is no chest pain at this time. Patient denies diaphoresis nausea vomiting fevers or chills. Severity scale (0 -10): 0 - Related Data Previous Rx's Medication Instructions Recorded Last Taken Type Nystatin [Nystatin SUSP] 10 ml PO QID #280 ml 09/05/16 Unknown Rx amLODIPine [Norvasc] 10 mg PO DAILY #7 tab 09/05/16 Unknown Rx Lisinopril [Zestril TAB] 20 mg PO QDAY #30 tablet 07/14/17 Unknown Rx Ketorolac Tromethamine [Ketorolac 1 drop OP Q8HR #5 ml 02/14/19 Unknown Rx Tromethamine 0.4% opth soln] Tobramycin [Tobrex] 1 drop OP Q4H #1 bottle 02/14/19 Unknown Rx Furosemide [Lasix TAB] 40 mg PO QDAY #3 tablet 06/26/19 Unknown Rx Lisinopril [Zestril TAB] 20 mg PO QDAY #30 tablet 06/26/19 Unknown Rx amLODIPine [Norvasc] 10 mg PO DAILY 30 Days #30 tab 06/26/19 Unknown Rx Allergies Allergy/AdvReac Type Severity Reaction Status Date / Time No Known Allergies Allergy Verified 07/14/17 10:18 ED Review of Systems ROS: Stated complaint: FLUID IN LUNGS/WAS HERE YESTERDAY Other details as noted in HPI Comment: All other systems reviewed and negative ED Past Medical Hx - Past Medical History Previous Medical History?: Yes Hx Hypertension: Yes Additional medical history: SLEEP APNEA - Surgical History Past Surgical History?: No - Social History Smoking Status: Current Some Day Smoker Substance Use Type: None - Medications Home Medications: Home Medications Medication Instructions Recorded Confirmed Last Taken Type Nystatin [Nystatin SUSP] 10 ml PO QID #280 ml 09/05/16 Unknown Rx amLODIPine [Norvasc] 10 mg PO DAILY #7 tab 09/05/16 Unknown Rx Lisinopril [Zestril TAB] 20 mg PO QDAY #30 tablet 07/14/17 Unknown Rx Ketorolac Tromethamine [Ketorolac 1 drop OP Q8HR #5 ml 02/14/19 Unknown Rx Tromethamine 0.4% opth soln] Tobramycin [Tobrex] 1 drop OP Q4H #1 bottle 02/14/19 Unknown Rx Furosemide [Lasix TAB] 40 mg PO QDAY #3 tablet 06/26/19 Unknown Rx Lisinopril [Zestril TAB] 20 mg PO QDAY #30 tablet 06/26/19 Unknown Rx amLODIPine [Norvasc] 10 mg PO DAILY 30 Days #30 tab 06/26/19 Unknown Rx ED Physical Exam - General Limitations: No Limitations General appearance: alert, in no apparent distress - Head Head exam: Present: atraumatic, normocephalic - Eye Eye exam: Present: normal appearance. Absent: PERRL, EOMI - ENT ENT exam: Present: mucous membranes moist - Neck Neck exam: Present: normal inspection - Respiratory Respiratory exam: Present: normal lung sounds bilaterally, rales (slight bibasilar rails). Absent: respiratory distress, wheezes, rhonchi, stridor - Cardiovascular Cardiovascular Exam: Present: regular rate, normal rhythm, normal heart sounds. Absent: systolic murmur, diastolic murmur, rubs, gallop - GI/Abdominal GI/Abdominal exam: Present: soft, normal bowel sounds. Absent: distended, tenderness, guarding, rebound - Rectal Rectal exam: Present: deferred - Extremities Exam Extremities exam: Present: normal inspection, pedal edema, joint swelling - Back Exam Back exam: Present: normal inspection - Neurological Exam Neurological exam: Present: alert, oriented X3 - Psychiatric Psychiatric exam: Present: normal affect, normal mood - Skin Skin exam: Present: warm, dry, intact, normal color. Absent: rash ED Course Vital Signs 06/27/19 06/27/19 06/27/19 08:32 10:29 10:56 Temperature 98.0 F Pulse Rate 98 H 97 H Respiratory 20 18 18 Rate Blood Pressure 137/101 Blood Pressure 155/116 [Right] O2 Sat by Pulse 96 97 Oximetry ED Medical Decision Making - Lab Data Result diagrams: 06/27/19 09:33 06/27/19 09:33 Lab Results 06/27/19 06/27/19 Range/Units 09:33 09:33 WBC 10.8 (4.5-11.0) K/mm3 RBC 4.53 (3.65-5.03) M/mm3 Hgb 14.1 (11.8-15.2) gm/dl Hct 41.7 (35.5-45.6) % MCV 92 (84-94) fl MCH 31 (28-32) pg MCHC 34 (32-34) % RDW 13.6 (13.2-15.2) % Plt Count 193 (140-440) K/mm3 Lymph % (Auto) 19.3 (13.4-35.0) % [place] % (Auto) 5.3 (0.0-7.3) % Eos % (Auto) 1.7 (0.0-4.3) % Baso % (Auto) 0.8 (0.0-1.8) % Lymph # 2.1 (1.2-5.4) K/mm3 [place] # 0.6 (0.0-0.8) K/mm3 Eos # 0.2 (0.0-0.4) K/mm3 Baso # 0.1 (0.0-0.1) K/mm3 Seg Neutrophils % 72.9 H (40.0-70.0) % Seg Neutrophils # 7.9 H (1.8-7.7) K/mm3 Sodium 140 (137-145) mmol/L Potassium 4.1 (3.6-5.0) mmol/L Chloride 103.2 (98-107) mmol/L Carbon Dioxide 26 (22-30) mmol/L Anion Gap 15 mmol/L BUN 20 (9-20) mg/dL Creatinine 1.3 (0.8-1.5) mg/dL Estimated GFR > 60 ml/min BUN/Creatinine Ratio 15 % Glucose 145 H (75-100) mg/dL Calcium 8.5 (8.4-10.2) mg/dL Troponin T < 0.010 (0.00-0.029) ng/mL NT-Pro-B Natriuret Pep 1580 H (0-450) pg/mL - EKG Data -: EKG Interpreted by Ga - EKG Data 06/27/19 12:37 EKG shows sinus rhythm rate of 78. There is a left anterior fascicular block and LVH present. Bynum is leftward intervals are otherwise normal. There are no ST segment elevations or depressions present. - Radiology Data [facility] [address] [place] [address] XRay Report Signed Patient: SHARLA MAST MR#: [id number] : 1980 Acct:[id number] Age/Sex: 38 / M ADM Date: 06/27/19 Loc: ED Attending Dr: Ordering Physician: LACHELLE THORPE MD Date of Service: 06/27/19 Procedure(s): XR chest routine 2V Accession Number(s): [id number] cc: LACHELLE THORPE MD Fluoro Time In Minutes: CHEST 2 VIEWS INDICATION / CLINICAL INFORMATION: evaluation of pulmn edema. COMPARISON: 06/26/2019 FINDINGS: SUPPORT DEVICES: None. HEART / MEDIASTINUM: Stable mild cardiomegaly with pulmonary venous hypertension LUNGS / PLEURA: No significant pulmonary or pleural abnormality. No pneumothorax. ADDITIONAL FINDINGS: No significant additional findings. IMPRESSION: 1. Cardiomegaly and pulmonary venous hypertension without pulmonary edema, no change. Signer Name: Wing Armendariz MD Signed: 06/27/2019 10:10 AM Workstation Name: [id number] Transcribed By: ID Dictated By: Wing Armendariz MD Electronically Authenticated By: Wing Armendariz MD Signed Date/Time: 06/27/19 1010 DD/ 1009 TD/TT: - Medical Decision Making Cardiology was consulted and they suggested the patient be admitted to the hospital for workup of new onset congestive heart failure. They have seen the patient here in the emergency department. Patient be admitted to the hospitalist service. Critical care attestation.: If time is entered above; I have spent that time in minutes in the direct care of this critically ill patient, excluding procedure time. ED Disposition Clinical Impression: SOB (shortness of breath) Acute heart failure Qualifiers: Heart failure type: unspecified Qualified Code(s): I50.9 - Heart failure, unspecified Disposition: OP ADMIT IP TO THIS HOSP Is pt being admited?: Yes Does the pt Need Aspirin: No Condition: Stable Referrals: GIOVANNY SANCHEZ MD [Primary Care Provider] - 3-5 Days Time of Disposition: 13:50
[2019-06-27] MEDS ORDERED: PROVENTIL IH PRN (13:46)
[2019-06-27] MEDS ORDERED: ZOFRAN IV PRN (13:46)
[2019-06-27] MEDS ORDERED: SODIUM CHLORIDE FLUSH SYRINGE 10 ML IV PRN (13:46)
--- NOTE | 2019-06-27 13:46 | History and Physical Report ---
History of Present Illness Chief complaint: My breathing is not right History of present illness: 38 YO Male with HTN, DIANN Noncompliant with CPAP, Nicotine Dependence, ETOH dependence presents to ED for evaluation. Pt states that he has experienced shortness of breath over the past 1week with worsening symptoms over the past 3 days. Pt initially presented to ED on 06/26/19 and left AMA, and returns to ED today for evaluation. Pt Acknowledges Orthopnea/PND, Shortness of Breath, Dypsnea on exertion, Dypsnea at Rest, Decreased exercise tolerance, leg swelling. Pt transported to [facility] via private vehicle. Pt seen and evaluated in ED and found to have symptoms consistent with CHF Decompensation, Obesity Hypoventilation Syndrome. Pt denies Fever, Chills, CP, Palpitations, NVD, Trauma, Skin Rash, Unilateral leg swelling, Calf pain, Individual/Family History of DVT/PE/Bleeding/Blood Clotting Disorders, Hemoptysis, or recent ill contacts. Past History Past Medical History: hypertension, other (suspected DIANN) Social history: smoking, alcohol abuse Medications and Allergies Allergies Allergy/AdvReac Type Severity Reaction Status Date / Time No Known Allergies Allergy Verified 07/14/17 10:18 Home Medications Medication Instructions Recorded Confirmed Last Taken Type Lisinopril [Zestril TAB] 20 mg PO QDAY #30 tablet 07/14/17 06/27/19 05/22/19 Rx Furosemide [Lasix TAB] 40 mg PO QDAY #3 tablet 06/26/19 06/27/19 05/22/19 Rx amLODIPine [Norvasc] 10 mg PO DAILY 30 Days #30 tab 06/26/19 06/27/19 05/22/19 Rx Active Meds: Active Medications Carvedilol (Coreg) 6.25 mg PO BID [facility] Last Admin: 06/27/19 12:26 Dose: 6.25 mg Documented by: Furosemide (Lasix) 20 mg IV BID IJEOMA Losartan Potassium (Cozaar) 25 mg PO DAILY [facility] Review of Systems Constitutional: no weight loss, no weight gain, no fever, no chills Ears, nose, mouth and throat: no ear pain, no ear discharge, no tinnitis, no nose pain, no nasal congestion, no nasal discharge Cardiovascular: orthopnea, shortness of breath, dyspnea on exertion, paroxysmal nocturnal dyspnea, leg edema, decreased exercise tolerance, no chest pain, no palpitations, no rapid/irregular heart beat Respiratory: no cough, no cough with sputum, no excessive sputum, no hemoptysis Gastrointestinal: no abdominal pain, no nausea, no diarrhea, no change in bowel habits, no hematemesis Genitourinary Male: no dysuria, no hematuria, no flank pain, no discharge, no urinary frequency, no urinary hesitancy, no incontinence, no erectile dysfunction Rectal: no pain, no incontinence, no bleeding Musculoskeletal: no neck stiffness, no neck pain, no shooting arm pain, no arm numbness/tingling, no low back pain, no leg numbness/tingling Integumentary: no rash, no pruritis, no redness, no sores, no jaundice, no boils Neurological: no head injury, no paralysis, no weakness, no parathesias, no numbness, no seizures, no syncope Psychiatric: no anxiety, no memory loss, no change in sleep habits, no sleep disturbances, no insomnia, no change in appetite, no suicidal ideation Endocrine: no cold intolerance, no heat intolerance, no polyphagia, no excessive thirst, no polyuria, no excessive sweating Hematologic/Lymphatic: no easy bruising, no easy bleeding, no lymphadenopathy, no lymphedema Allergic/Immunologic: no urticaria, no allergic rhinitis, no persistent infections, no angioedema Exam - Constitutional Vitals: Temp Pulse Resp BP Pulse Ox 98.0 F 97 H 18 155/116 97 06/27/19 08:32 06/27/19 10:56 06/27/19 10:56 06/27/19 10:56 06/27/19 10:56 General appearance: Present: mild distress, obese - EENT Eyes: Present: PERRL ENT: hearing intact, clear oral mucosa - Neck Neck: Present: supple, normal ROM - Respiratory Respiratory effort: normal Respiratory: bilateral: CTA - Cardiovascular Heart Sounds: Present: S1 & S2. Absent: rub, click - Extremities Extremities: pulses symmetrical Extremity abnormal: edema Peripheral Pulses: within normal limits - Abdominal General gastrointestinal: Present: soft, non-tender, non-distended, normal bowel sounds Male genitourinary: Present: normal - Integumentary Integumentary: Present: clear, warm, dry - Musculoskeletal Musculoskeletal: gait normal, strength equal bilaterally - Psychiatric Psychiatric: appropriate mood/affect, intact judgment & insight - Neurologic Neurologic: CNII-XII intact, moves all extremities Results - Labs CBC & Chem 7: 06/27/19 09:33 06/27/19 09:33 Labs: Abnormal lab results 06/27/19 06/27/19 Range/Units 09:33 09:33 Seg Neutrophils % 72.9 H (40.0-70.0) % Seg Neutrophils # 7.9 H (1.8-7.7) K/mm3 Glucose 145 H (75-100) mg/dL NT-Pro-B Natriuret Pep 1580 H (0-450) pg/mL Assessment and Plan - Patient Problems (1) CHF (congestive heart failure) Current Visit: Yes Status: Acute Qualifiers: Heart failure type: systolic Heart failure chronicity: acute Qualified Code(s): I50.21 - Acute systolic (congestive) heart failure Plan to address problem: Admit to Telemetry, Echo, cardiology consulted, BNP, Chest x ray, supplemental oxygen, magnesium level, thyroid panel, pulse oximetry, d dimer. (2) DIANN (obstructive sleep apnea) Current Visit: Yes Status: Acute Plan to address problem: Supplemental oxygen, nebulizer therapy, NIPPV as clinically indicated, Chest x ray. (3) EtOH dependence Current Visit: Yes Status: Acute Plan to address problem: thiamine, folic acid, multivitamin daily, (4) Nicotine dependence Current Visit: Yes Status: Acute Qualifiers: Substance use status: in withdrawal Plan to address problem: smoking cessation counseling +15 minutes, supportive care. (5) Obesity (BMI 30.0-34.9) Current Visit: Yes Status: Acute Plan to address problem: Balanced diet, increased physical activity at discharge, (6) DVT prophylaxis Current Visit: Yes Status: Acute Plan to address problem: SCD to BLE while in bed.
[2019-06-27] MEDS ORDERED: KETOROLAC TROMETHAMINE OP SCH (14:00)
[2019-06-27] MEDS ORDERED: TOBREX OD SCH (14:00)
[2019-06-27] MEDS ORDERED: NYSTATIN PO SCH (16:00)
[2019-06-27] MEDS: LASIX IV SCH (19:05)
[2019-06-27 20:50] LABS: Alanine Aminotransferase 53 units/L (7-56); Albumin 3.3 g/dL (3.9-5)
[2019-06-27 20:55] LABS: Bilirubin,Direct < 0.2 mg/dL (0-0.2)
[2019-06-27 20:57] LABS: Free T4 (Free Thyroxine) 1.24 ng/dL (0.76-1.46)
[2019-06-27] MEDS: FOLVITE PO SCH (21:25)
[2019-06-27] MEDS: VITAMIN B-1 PO SCH (21:25)
[2019-06-27] MEDS: THERAGRAN Tab PO SCH (21:25)
[2019-06-27] MEDS: SODIUM CHLORIDE FLUSH SYRINGE 10 ML IV SCH (21:26)
[2019-06-28 06:58] LABS: Alanine Aminotransferase 52 units/L (7-56); Albumin 3.4 g/dL (3.9-5); BUN/Creatinine Ratio 13; Blood Urea Nitrogen 16 mg/dL (9-20); Calcium 8.9 mg/dL (8.4-10.2); Hemolysis Index 4
[2019-06-28] MEDS ORDERED: COZAAR PO SCH (10:00)
[2019-06-28] MEDS: NORVASC PO SCH (10:56)
[2019-06-28] MEDS: LASIX IV SCH (10:56)
[2019-06-28] MEDS: THERAGRAN Tab PO SCH (10:57)
[2019-06-28] MEDS: FOLVITE PO SCH (10:57)
[2019-06-28] MEDS: ZESTRIL PO SCH (10:57)
[2019-06-28] MEDS: VITAMIN B-1 PO SCH (10:57)
[2019-06-28] MEDS: SODIUM CHLORIDE FLUSH SYRINGE 10 ML IV SCH ×2 (10:58→21:09)
--- NOTE | 2019-06-28 12:42 | Progress Note ---
Assessment and Plan The patient is improving from a cardiac standpoint. Will transition to PO Lasix and start aldactone. Continue ACEi, but hold beta carlos d/t intermittent bradycardia and pauses noted on telemetry. - Patient Problems (1) Acute HFrEF (heart failure with reduced ejection fraction) Current Visit: Yes Status: Acute (2) DIANN (obstructive sleep apnea) Current Visit: Yes Status: Acute (3) Alcohol use Current Visit: Yes Status: Chronic (4) Tobacco use Current Visit: Yes Status: Chronic (5) HTN (hypertension) Current Visit: No Status: Acute Qualifiers: Hypertension type: essential hypertension Qualified Code(s): I10 - Essential (primary) hypertension Subjective Date of service: 06/28/19 Interval history: The patient is sitting in bed in NAD. He has no cardiac complaints. SOB is resolved. Telemetry reviewed - SR in 90s. Echo done on 06/27/19 found an EF of 15 to 20 percent, mild MR, mild TR, mild dilatation of aortic root. Objective Last Vital Signs Temp 98.1 F 06/28/19 08:24 Pulse 94 H 06/28/19 10:57 Resp 18 06/28/19 08:24 BP 131/96 06/28/19 10:57 Pulse Ox 96 06/28/19 10:00 - Physical Examination General: No Apparent Distress HEENT: Positive: PERRL, Normocephaly, Mucus Membranes Moist Neck: Positive: neck supple, trachea midline Cardiac: Positive: Reg Rate and Rhythm Lungs: Positive: Normal Exam Neuro: Positive: Grossly Intact Abdomen: Positive: Unremarkable. Negative: Tender /Rectal: Other (deferred) Skin: Positive: Clear. Negative: Rash Musculoskeletal: No Pain Extremities: Present: normal. Absent: edema - Labs and Meds Cardiac Enzymes 06/27/19 06/28/19 Range/Units 19:44 05:59 AST 35 36 (5-40) units/L Comprehensive Metabolic Panel 06/27/19 06/28/19 Range/Units 19:44 05:59 Sodium 142 (137-145) mmol/L Potassium 4.0 (3.6-5.0) mmol/L Chloride 102.6 (98-107) mmol/L Carbon Dioxide 31 H (22-30) mmol/L BUN 16 (9-20) mg/dL Creatinine 1.2 (0.8-1.5) mg/dL Glucose 158 H (75-100) mg/dL Calcium 8.9 (8.4-10.2) mg/dL Direct Bilirubin < 0.2 (0-0.2) mg/dL Indirect Bilirubin 0.2 mg/dL AST 35 36 (5-40) units/L ALT 53 52 (7-56) units/L Alkaline Phosphatase 47 48 (35-129) units/L Total Protein 6.3 6.6 (6.3-8.2) g/dL Albumin 3.3 L 3.4 L (3.9-5) g/dL - Imaging and Cardiology EKG: report reviewed, image reviewed Echo: pending, report reviewed (06/2019: EF 15-20%, mild MR, mild TR, mild diltatation of aortic root) - Telemetry EKG Rhythm: Sinus Rhythm - EKG Sinus rhythms and dysrhythmias: sinus rhythm Chamber hypertrophy or enlargement: left ventricular hypertro
--- NOTE | 2019-06-28 15:16 | Progress Note ---
Assessment and Plan Assessment and plan: Acute HFrEF (heart failure with reduced ejection fraction) Cont. Telemetry, Echo, cardiology consulted, BNP, Chest x ray, supplemental oxygen, check thyroid panel, pulse oximetry Will transition to PO Lasix and start aldactone. Continue ACEi, but hold beta carlos d/t intermittent bradycardia and pauses noted on telemetry. DIANN (obstructive sleep apnea) Supplemental oxygen, nebulizer therapy, NIPPV as clinically indicated, Chest x ray. Acute hypoxic resp failure cont O2 and Bipap as clinically indicated EtOH dependence thiamine, folic acid, multivitamin daily, Nicotine dependence smoking cessation counseling +15 minutes, supportive care. Obesity (BMI 30.0-34.9) Balanced diet, increased physical activity at discharge, DVT prophylaxis SCD to BLE while in bed. History Interval history: No new issues overnight Hospitalist Physical - Constitutional Vitals: Temp Pulse Resp BP Pulse Ox 98.1 F 94 H 18 131/96 96 06/28/19 08:24 06/28/19 10:57 06/28/19 08:24 06/28/19 10:57 06/28/19 10:00 General appearance: Present: mild distress, obese - EENT Eyes: Present: PERRL, EOM intact ENT: hearing intact, clear oral mucosa, dentition normal - Neck Neck: Present: supple, normal ROM - Respiratory Respiratory effort: normal Respiratory: bilateral: CTA - Cardiovascular Rhythm: regular Heart Sounds: Present: S1 & S2. Absent: gallop, rub - Extremities Extremities: no ischemia, No edema, Full ROM - Abdominal General gastrointestinal: soft, non-tender, non-distended, normal bowel sounds - Integumentary Integumentary: Present: clear, warm, dry - Neurologic Neurologic: CNII-XII intact, moves all extremities Results - Labs CBC & Chem 7: 06/27/19 09:33 06/28/19 05:59 Labs: Laboratory Last Values WBC 10.8 K/mm3 (4.5-11.0) 06/27/19 09:33 RBC 4.53 M/mm3 (3.65-5.03) 06/27/19 09:33 Hgb 14.1 gm/dl (11.8-15.2) 06/27/19 09:33 Hct 41.7 % (35.5-45.6) 06/27/19 09:33 MCV 92 fl (84-94) 06/27/19 09:33 MCH 31 pg (28-32) 06/27/19 09:33 MCHC 34 % (32-34) 06/27/19 09:33 RDW 13.6 % (13.2-15.2) 06/27/19 09:33 Plt Count 193 K/mm3 (140-440) 06/27/19 09:33 Lymph % (Auto) 19.3 % (13.4-35.0) 06/27/19 09:33 [place] % (Auto) 5.3 % (0.0-7.3) 06/27/19 09:33 Eos % (Auto) 1.7 % (0.0-4.3) 06/27/19 09:33 Baso % (Auto) 0.8 % (0.0-1.8) 06/27/19 09:33 Lymph # 2.1 K/mm3 (1.2-5.4) 06/27/19 09:33 [place] # 0.6 K/mm3 (0.0-0.8) 06/27/19 09:33 Eos # 0.2 K/mm3 (0.0-0.4) 06/27/19 09:33 Baso # 0.1 K/mm3 (0.0-0.1) 06/27/19 09:33 Seg Neutrophils % 72.9 % (40.0-70.0) H 06/27/19 09:33 Seg Neutrophils # 7.9 K/mm3 (1.8-7.7) H 06/27/19 09:33 368.32 ng/mlDDU (0-234) H 06/27/19 19:43 Sodium 142 mmol/L (137-145) 06/28/19 05:59 Potassium 4.0 mmol/L (3.6-5.0) 06/28/19 05:59 Chloride 102.6 mmol/L (98-107) 06/28/19 05:59 Carbon Dioxide 31 mmol/L (22-30) H 06/28/19 05:59 12 mmol/L 06/28/19 05:59 BUN 16 mg/dL (9-20) 06/28/19 05:59 1.2 mg/dL (0.8-1.5) 06/28/19 05:59 Estimated GFR > 60 ml/min 06/28/19 05:59 13 % 06/28/19 05:59 Glucose 158 mg/dL (75-100) H 06/28/19 05:59 Calcium 8.9 mg/dL (8.4-10.2) 06/28/19 05:59 Magnesium 2.10 mg/dL (1.7-2.3) 06/27/19 19:51 0.30 mg/dL (0.1-1.2) 06/28/19 05:59 < 0.2 mg/dL (0-0.2) 06/27/19 19:44 0.2 mg/dL 06/27/19 19:44 AST 36 units/L (5-40) 06/28/19 05:59 ALT 52 units/L (7-56) 06/28/19 05:59 48 units/L (35-129) 06/28/19 05:59 < 0.010 ng/mL (0.00-0.029) 06/27/19 09:33 NT-Pro-B Natriuret Pep 1580 pg/mL (0-450) H 06/27/19 09:33 6.6 g/dL (6.3-8.2) 06/28/19 05:59 3.4 g/dL (3.9-5) L 06/28/19 05:59 1.1 % 06/28/19 05:59 TSH 5.130 mlU/mL (0.270-4.200) H 06/27/19 19:43 Free T4 1.24 ng/dL (0.76-1.46) 06/27/19 19:43 Active Medications - Current Medications Current Medications: Generic Name Dose Route Start Last Admin Trade Name Freq PRN Reason Stop Dose Admin Acetaminophen 650 mg 06/27/19 13:46 Tylenol PO Q4H PRN Pain MILD(1-3)/Fever >100.5/SIMPSON Albuterol 2.5 mg 06/27/19 13:46 Proventil IH Q4HRT PRN Shortness Of Breath Amlodipine Besylate 10 mg 06/28/19 10:00 06/28/19 10:56 Norvasc PO 10 mg DAILY IJEOMA Administration Folic Acid 1 mg 06/27/19 20:00 06/28/19 10:57 Folvite PO 1 mg QDAY IJEOMA Administration Furosemide 40 mg 06/29/19 06:00 Lasix PO DAILY@0600 IJEOMA Lisinopril 20 mg 06/28/19 10:00 06/28/19 10:57 Zestril PO 20 mg QDAY IJEOMA Administration Multivitamins 1 each 06/27/19 20:00 06/28/19 10:57 Theragran Tab PO 1 each QDAY IJEOMA Administration Ondansetron HCl 4 mg 06/27/19 13:46 Zofran IV Q8H PRN Nausea And Vomiting Sodium Chloride 10 ml 06/27/19 22:00 06/28/19 10:58 Sodium Chloride Flush Syringe 10 Ml IV 10 ml BID IJEOMA Administration Sodium Chloride 10 ml 06/27/19 13:46 Sodium Chloride Flush Syringe 10 Ml IV PRN PRN LINE FLUSH Spironolactone 25 mg 06/28/19 13:00 Aldactone PO QDAY IJEOMA Thiamine HCl 100 mg 06/27/19 20:00 06/28/19 10:57 Vitamin B-1 PO 100 mg QDAY IJEOMA Administration
[2019-06-28] MEDS: ALDACTONE PO SCH (16:05)
[2019-06-29] MEDS: LASIX PO SCH (06:05)
--- NOTE | 2019-06-29 09:46 | Progress Note ---
Assessment and Plan Assessment and plan: Acute HFrEF (heart failure with reduced ejection fraction) Cont. Telemetry, Echo, cardiology consulted, BNP, Chest x ray, supplemental oxygen, check thyroid panel, pulse oximetry Will transition to PO Lasix and start aldactone. Continue ACEi, but hold beta carlos due to intermittent bradycardia and pauses noted on telemetry. DIANN (obstructive sleep apnea) Supplemental oxygen, nebulizer therapy, NIPPV as clinically indicated, Chest x ray. Acute hypoxic resp failure cont O2 and Bipap as clinically indicated EtOH dependence thiamine, folic acid, multivitamin daily, Nicotine dependence smoking cessation counseling +15 minutes, supportive care. Obesity (BMI 30.0-34.9) Balanced diet, increased physical activity at discharge, DVT prophylaxis SCD to BLE while in bed. History Interval history: No new issues overnight Hospitalist Physical - Constitutional Vitals: Temp Pulse Resp BP Pulse Ox 97.7 F 99 H 18 139/87 97 06/29/19 07:51 06/29/19 07:51 06/29/19 07:51 06/29/19 07:51 06/29/19 07:51 General appearance: Present: mild distress, obese - EENT Eyes: Present: PERRL, EOM intact ENT: hearing intact, clear oral mucosa, dentition normal - Neck Neck: Present: supple, normal ROM - Respiratory Respiratory effort: normal Respiratory: bilateral: CTA - Cardiovascular Rhythm: regular Heart Sounds: Present: S1 & S2. Absent: gallop, rub - Extremities Extremities: no ischemia, No edema, Full ROM - Abdominal General gastrointestinal: soft, non-tender, non-distended, normal bowel sounds - Integumentary Integumentary: Present: clear, warm, dry - Neurologic Neurologic: CNII-XII intact, moves all extremities Results - Labs CBC & Chem 7: 06/27/19 09:33 06/28/19 05:59 Labs: Laboratory Last Values WBC 10.8 K/mm3 (4.5-11.0) 06/27/19 09:33 RBC 4.53 M/mm3 (3.65-5.03) 06/27/19 09:33 Hgb 14.1 gm/dl (11.8-15.2) 06/27/19 09:33 Hct 41.7 % (35.5-45.6) 06/27/19 09:33 MCV 92 fl (84-94) 06/27/19 09:33 MCH 31 pg (28-32) 06/27/19 09:33 MCHC 34 % (32-34) 06/27/19 09:33 RDW 13.6 % (13.2-15.2) 06/27/19 09:33 Plt Count 193 K/mm3 (140-440) 06/27/19 09:33 Lymph % (Auto) 19.3 % (13.4-35.0) 06/27/19 09:33 [place] % (Auto) 5.3 % (0.0-7.3) 06/27/19 09:33 Eos % (Auto) 1.7 % (0.0-4.3) 06/27/19 09:33 Baso % (Auto) 0.8 % (0.0-1.8) 06/27/19 09:33 Lymph # 2.1 K/mm3 (1.2-5.4) 06/27/19 09:33 [place] # 0.6 K/mm3 (0.0-0.8) 06/27/19 09:33 Eos # 0.2 K/mm3 (0.0-0.4) 06/27/19 09:33 Baso # 0.1 K/mm3 (0.0-0.1) 06/27/19 09:33 Seg Neutrophils % 72.9 % (40.0-70.0) H 06/27/19 09:33 Seg Neutrophils # 7.9 K/mm3 (1.8-7.7) H 06/27/19 09:33 368.32 ng/mlDDU (0-234) H 06/27/19 19:43 Sodium 142 mmol/L (137-145) 06/28/19 05:59 Potassium 4.0 mmol/L (3.6-5.0) 06/28/19 05:59 Chloride 102.6 mmol/L (98-107) 06/28/19 05:59 Carbon Dioxide 31 mmol/L (22-30) H 06/28/19 05:59 12 mmol/L 06/28/19 05:59 BUN 16 mg/dL (9-20) 06/28/19 05:59 1.2 mg/dL (0.8-1.5) 06/28/19 05:59 Estimated GFR > 60 ml/min 06/28/19 05:59 13 % 06/28/19 05:59 Glucose 158 mg/dL (75-100) H 06/28/19 05:59 Calcium 8.9 mg/dL (8.4-10.2) 06/28/19 05:59 Magnesium 2.10 mg/dL (1.7-2.3) 06/27/19 19:51 0.30 mg/dL (0.1-1.2) 06/28/19 05:59 < 0.2 mg/dL (0-0.2) 06/27/19 19:44 0.2 mg/dL 06/27/19 19:44 AST 36 units/L (5-40) 06/28/19 05:59 ALT 52 units/L (7-56) 06/28/19 05:59 48 units/L (35-129) 06/28/19 05:59 < 0.010 ng/mL (0.00-0.029) 06/27/19 09:33 NT-Pro-B Natriuret Pep 1580 pg/mL (0-450) H 06/27/19 09:33 6.6 g/dL (6.3-8.2) 06/28/19 05:59 3.4 g/dL (3.9-5) L 06/28/19 05:59 1.1 % 06/28/19 05:59 TSH 5.130 mlU/mL (0.270-4.200) H 06/27/19 19:43 Free T4 1.24 ng/dL (0.76-1.46) 06/27/19 19:43 Active Medications - Current Medications Current Medications: Generic Name Dose Route Start Last Admin Trade Name Freq PRN Reason Stop Dose Admin Acetaminophen 650 mg 06/27/19 13:46 Tylenol PO Q4H PRN Pain MILD(1-3)/Fever >100.5/SIMPSON Albuterol 2.5 mg 06/27/19 13:46 Proventil IH Q4HRT PRN Shortness Of Breath Amlodipine Besylate 10 mg 06/28/19 10:00 06/28/19 10:56 Norvasc PO 10 mg DAILY IJEOMA Administration Folic Acid 1 mg 06/27/19 20:00 06/28/19 10:57 Folvite PO 1 mg QDAY IJEOMA Administration Furosemide 40 mg 06/29/19 06:00 06/29/19 06:05 Lasix PO 40 mg DAILY@0600 IJEOMA Administration Lisinopril 20 mg 06/28/19 10:00 06/28/19 10:57 Zestril PO 20 mg QDAY IJEOMA Administration Multivitamins 1 each 06/27/19 20:00 06/28/19 10:57 Theragran Tab PO 1 each QDAY IJEOMA Administration Ondansetron HCl 4 mg 06/27/19 13:46 Zofran IV Q8H PRN Nausea And Vomiting Sodium Chloride 10 ml 06/27/19 22:00 06/28/19 21:09 Sodium Chloride Flush Syringe 10 Ml IV 10 ml BID IJEOMA Administration Sodium Chloride 10 ml 06/27/19 13:46 Sodium Chloride Flush Syringe 10 Ml IV PRN PRN LINE FLUSH Spironolactone 25 mg 06/28/19 13:00 06/28/19 16:05 Aldactone PO 25 mg QDAY IJEOMA Administration Thiamine HCl 100 mg 06/27/19 20:00 06/28/19 10:57 Vitamin B-1 PO 100 mg QDAY IJEOMA Administration
[2019-06-29] MEDS: FOLVITE PO SCH (10:55)
[2019-06-29] MEDS: THERAGRAN Tab PO SCH (10:55)
[2019-06-29] MEDS: VITAMIN B-1 PO SCH (10:55)
[2019-06-29] MEDS: ALDACTONE PO SCH (10:55)
[2019-06-29] MEDS: ZESTRIL PO SCH (10:55)
[2019-06-29] MEDS: NORVASC PO SCH (10:56)
[2019-06-29] MEDS: SODIUM CHLORIDE FLUSH SYRINGE 10 ML IV SCH ×2 (10:56→21:42)
--- NOTE | 2019-06-29 13:26 | Progress Note ---
Assessment and Plan The patient is stable from a cardiac standpoint and may be discharged home from our perspective. Continue current management. No AV chiquita blocking agents d/t intermittent bradycardia and sinus pauses noted on telemetry. Follow up with Dr. Smith for additional outpatient evaluation in 7-10 days ([phone]). The patient has been seen in conjunction with Dr. Smith, who agrees with the assessment and plan. - Patient Problems (1) Acute HFrEF (heart failure with reduced ejection fraction) Current Visit: Yes Status: Acute (2) DIANN (obstructive sleep apnea) Current Visit: Yes Status: Acute (3) Alcohol use Current Visit: Yes Status: Chronic (4) Tobacco use Current Visit: Yes Status: Chronic (5) HTN (hypertension) Current Visit: No Status: Acute Qualifiers: Hypertension type: essential hypertension Qualified Code(s): I10 - Essential (primary) hypertension (6) Sinus bradycardia Current Visit: Yes Status: Acute (7) Sinus pause Current Visit: Yes Status: Acute Subjective Date of service: 06/29/19 Interval history: Patient sleeping, but awoke for exam. He is in NAD with no complaints. Telemetry reviewed - SR in 90s with multiple two-second sinus pauses noted. These appear to occur while the patient is sleeping and are asymptomatic. Objective Last Vital Signs Temp 97.7 F 06/29/19 07:51 Pulse 99 H 06/29/19 10:56 Resp 2 L 06/29/19 10:00 BP 139/87 06/29/19 10:56 Pulse Ox 97 06/29/19 10:00 - Physical Examination General: No Apparent Distress HEENT: Positive: PERRL, Normocephaly, Mucus Membranes Moist Neck: Positive: neck supple, trachea midline Cardiac: Positive: Reg Rate and Rhythm (with several sinus pauses noted ) Lungs: Positive: Normal Exam Neuro: Positive: Grossly Intact Abdomen: Positive: Unremarkable. Negative: Tender /Rectal: Other (deferred) Skin: Positive: Clear. Negative: Rash Musculoskeletal: No Pain Extremities: Present: normal. Absent: edema - Imaging and Cardiology EKG: report reviewed, image reviewed Echo: pending, report reviewed (06/2019: EF 15-20%, mild MR, mild TR, mild diltatation of aortic root) - Telemetry EKG Rhythm: Sinus Rhythm - EKG Sinus rhythms and dysrhythmias: sinus rhythm Chamber hypertrophy or enlargement: left ventricular hypertro
[2019-06-30] MEDS: LASIX PO SCH (05:11)
[2019-06-30 06:07] LABS: Basophils # (Auto) 0.1 K/mm3 (0.0-0.1); Basophils % (Auto) 0.8 % (0.0-1.8); Eosinophils # (Auto) 0.2 K/mm3 (0.0-0.4); Eosinophils % (Auto) 2.6 % (0.0-4.3); Hematocrit 45.9 % (35.5-45.6); Hemoglobin 15.4 gm/dl (11.8-15.2); Lymphocytes # (Auto) 2.8 K/mm3 (1.2-5.4); Lymphocytes % (Auto) 28.9 % (13.4-35.0); Mean Corpuscular HGB Conc 34 % (32-34); Mean Corpuscular Volume 91 fl (84-94); Monocytes # (Auto) 0.6 K/mm3 (0.0-0.8); Monocytes % (Auto) 6.2 % (0.0-7.3); Platelet Count 215 K/mm3 (140-440); Red Blood Count 5.05 M/mm3 (3.65-5.03); Red Cell Distribution Width 13.7 % (13.2-15.2)
[2019-06-30 06:25] LABS: BUN/Creatinine Ratio 15; Blood Urea Nitrogen 18 mg/dL (9-20); Hemolysis Index 6
[2019-06-30] MEDS: ZESTRIL PO SCH (09:43)
[2019-06-30] MEDS: NORVASC PO SCH (09:43)
[2019-06-30] MEDS: VITAMIN B-1 PO SCH (09:43)
[2019-06-30] MEDS: ALDACTONE PO SCH (09:43)
[2019-06-30] MEDS: THERAGRAN Tab PO SCH (09:43)
[2019-06-30] MEDS: FOLVITE PO SCH (09:43)
[2019-06-30] MEDS: SODIUM CHLORIDE FLUSH SYRINGE 10 ML IV SCH ×2 (09:44→22:00)
[2019-06-30] MEDS ORDERED: NACL 0.9% 500 ML 500 ML IV SCH (12:00)
--- NOTE | 2019-06-30 12:05 | Progress Note ---
Assessment and Plan Assessment and plan: AV heart block Patient with occasional episodes of 2-1 AV block and rare episodes of complete heart block. Cardiology potentially to place a pacemaker/AICD in a.m. Await their recommendations. Acute HFrEF (heart failure with reduced ejection fraction) Cont. Telemetry, Echo revealed left ventricular chamber size moderately dilated with systolic function severely decreased and EF of 15-20%. Cardiology following Continue lisinopril, Lasix and aldactone. Hold beta carlos due to intermittent bradycardia and heart block noted on telemetry. DIANN (obstructive sleep apnea) Supplemental oxygen, nebulizer therapy, NIPPV as clinically indicated, Chest x ray. Acute hypoxic resp failure cont O2 and Bipap as clinically indicated EtOH dependence thiamine, folic acid, multivitamin daily, Nicotine dependence smoking cessation counseling +15 minutes, supportive care. Obesity (BMI 30.0-34.9) Balanced diet, increased physical activity at discharge, DVT prophylaxis SCD to BLE while in bed. History Interval history: No new issues overnight Hospitalist Physical - Constitutional Vitals: Temp Pulse Resp BP Pulse Ox 98.2 F 71 18 117/79 99 06/30/19 07:37 06/30/19 10:00 06/30/19 10:00 06/30/19 09:43 06/30/19 10:00 General appearance: Present: mild distress, obese - EENT Eyes: Present: PERRL, EOM intact ENT: hearing intact, clear oral mucosa, dentition normal - Neck Neck: Present: supple, normal ROM - Respiratory Respiratory effort: normal Respiratory: bilateral: CTA - Cardiovascular Rhythm: regular Heart Sounds: Present: S1 & S2. Absent: gallop, rub - Extremities Extremities: no ischemia, No edema, Full ROM - Abdominal General gastrointestinal: soft, non-tender, non-distended, normal bowel sounds - Integumentary Integumentary: Present: clear, warm, dry - Neurologic Neurologic: CNII-XII intact, moves all extremities Results - Labs CBC & Chem 7: 06/30/19 05:52 06/30/19 05:52 Labs: Laboratory Last Values WBC 9.7 K/mm3 (4.5-11.0) 06/30/19 05:52 RBC 5.05 M/mm3 (3.65-5.03) H 06/30/19 05:52 Hgb 15.4 gm/dl (11.8-15.2) H 06/30/19 05:52 Hct 45.9 % (35.5-45.6) H 06/30/19 05:52 MCV 91 fl (84-94) 06/30/19 05:52 MCH 31 pg (28-32) 06/30/19 05:52 MCHC 34 % (32-34) 06/30/19 05:52 RDW 13.7 % (13.2-15.2) 06/30/19 05:52 Plt Count 215 K/mm3 (140-440) 06/30/19 05:52 Lymph % (Auto) 28.9 % (13.4-35.0) 06/30/19 05:52 [place] % (Auto) 6.2 % (0.0-7.3) 06/30/19 05:52 Eos % (Auto) 2.6 % (0.0-4.3) 06/30/19 05:52 Baso % (Auto) 0.8 % (0.0-1.8) 06/30/19 05:52 Lymph # 2.8 K/mm3 (1.2-5.4) 06/30/19 05:52 [place] # 0.6 K/mm3 (0.0-0.8) 06/30/19 05:52 Eos # 0.2 K/mm3 (0.0-0.4) 06/30/19 05:52 Baso # 0.1 K/mm3 (0.0-0.1) 06/30/19 05:52 Seg Neutrophils % 61.5 % (40.0-70.0) 06/30/19 05:52 Seg Neutrophils # 5.9 K/mm3 (1.8-7.7) 06/30/19 05:52 368.32 ng/mlDDU (0-234) H 06/27/19 19:43 Sodium 141 mmol/L (137-145) 06/30/19 05:52 Potassium 4.4 mmol/L (3.6-5.0) 06/30/19 05:52 Chloride 102.7 mmol/L (98-107) 06/30/19 05:52 Carbon Dioxide 30 mmol/L (22-30) 06/30/19 05:52 13 mmol/L 06/30/19 05:52 BUN 18 mg/dL (9-20) 06/30/19 05:52 1.2 mg/dL (0.8-1.5) 06/30/19 05:52 Estimated GFR > 60 ml/min 06/30/19 05:52 15 % 06/30/19 05:52 Glucose 151 mg/dL (75-100) H 06/30/19 05:52 Calcium 9.0 mg/dL (8.4-10.2) 06/30/19 05:52 Magnesium 2.10 mg/dL (1.7-2.3) 06/27/19 19:51 0.30 mg/dL (0.1-1.2) 06/28/19 05:59 < 0.2 mg/dL (0-0.2) 06/27/19 19:44 0.2 mg/dL 06/27/19 19:44 AST 36 units/L (5-40) 06/28/19 05:59 ALT 52 units/L (7-56) 06/28/19 05:59 48 units/L (35-129) 06/28/19 05:59 < 0.010 ng/mL (0.00-0.029) 06/27/19 09:33 NT-Pro-B Natriuret Pep 1580 pg/mL (0-450) H 06/27/19 09:33 6.6 g/dL (6.3-8.2) 06/28/19 05:59 3.4 g/dL (3.9-5) L 06/28/19 05:59 1.1 % 06/28/19 05:59 TSH 5.130 mlU/mL (0.270-4.200) H 06/27/19 19:43 Free T4 1.24 ng/dL (0.76-1.46) 06/27/19 19:43 Active Medications - Current Medications Current Medications: Generic Name Dose Route Start Last Admin Trade Name Freq PRN Reason Stop Dose Admin Acetaminophen 650 mg 06/27/19 13:46 Tylenol PO Q4H PRN Pain MILD(1-3)/Fever >100.5/SIMPSON Albuterol 2.5 mg 06/27/19 13:46 Proventil IH Q4HRT PRN Shortness Of Breath Amlodipine Besylate 10 mg 06/28/19 10:00 06/30/19 09:43 Norvasc PO 10 mg DAILY IJEOMA Administration Folic Acid 1 mg 06/27/19 20:00 06/30/19 09:43 Folvite PO 1 mg QDAY IJEOMA Administration Furosemide 40 mg 06/29/19 06:00 06/30/19 05:11 Lasix PO 40 mg DAILY@0600 IJEOMA Administration Sodium Chloride 500 mls @ 50 mls/hr 06/30/19 12:00 Nacl 0.9% 500 Ml IV 06/30/19 21:59 DIRECT IJEOMA Lisinopril 20 mg 06/28/19 10:00 06/30/19 09:43 Zestril PO 20 mg QDAY IJEOMA Administration Multivitamins 1 each 06/27/19 20:00 06/30/19 09:43 Theragran Tab PO 1 each QDAY IJEOMA Administration Ondansetron HCl 4 mg 06/27/19 13:46 Zofran IV Q8H PRN Nausea And Vomiting Sodium Chloride 10 ml 06/27/19 22:00 06/30/19 09:44 Sodium Chloride Flush Syringe 10 Ml IV 10 ml BID IJEOMA Administration Sodium Chloride 10 ml 06/27/19 13:46 Sodium Chloride Flush Syringe 10 Ml IV PRN PRN LINE FLUSH Spironolactone 25 mg 06/28/19 13:00 06/30/19 09:43 Aldactone PO 25 mg QDAY IJEOMA Administration Thiamine HCl 100 mg 06/27/19 20:00 06/30/19 09:43 Vitamin B-1 PO 100 mg QDAY IJEOMA Administration
--- NOTE | 2019-06-30 13:08 | Progress Note ---
Assessment and Plan Currently stable cardiac status. Cont present cardiac management. Cont to hold AV chiquita blocking agents in setting of intermittent high degree AVB. Obtain EP consultation for possible PPM/AICD. Coronary angiography recommended to r/o ischemic CMP. Indications, potential risks and benefits of LHC reviewed with pt and he is agreeable to proceed in AM. NPO after MN. The patient has been seen in conjunction with Dr. Arpan Carty who agrees with the assessment and plan of care. - Patient Problems (1) Acute HFrEF (heart failure with reduced ejection fraction) Current Visit: Yes Status: Acute (2) Cardiomyopathy Current Visit: Yes Status: Chronic (3) High degree atrioventricular block Current Visit: Yes Status: Acute (4) Uncontrolled hypertension Current Visit: Yes Status: Chronic (5) Sleep apnea Current Visit: Yes Status: Suspected (6) Tobacco use Current Visit: Yes Status: Chronic (7) Alcohol use Current Visit: Yes Status: Chronic Subjective Date of service: 06/30/19 Principal diagnosis: HF Interval history: pt resting in bed, no current cardiac complaints. tele reviewed - currently in SR HR 100s with intermittent 2nd degree type II AVB overnight. Objective Last Vital Signs Temp 97.8 F 06/30/19 12:02 Pulse 60 06/30/19 12:02 Resp 18 06/30/19 12:02 BP 119/80 06/30/19 12:02 Pulse Ox 77 L 06/30/19 12:02 - Physical Examination General: No Apparent Distress HEENT: Positive: PERRL, Normocephaly, Mucus Membranes Moist Neck: Positive: neck supple, trachea midline Cardiac: Positive: Reg Rate and Rhythm, S1/S2 Lungs: Positive: Decreased Breath Sounds Neuro: Positive: Grossly Intact Abdomen: Positive: Unremarkable. Negative: Tender /Rectal: Other (deferred) Skin: Positive: Clear. Negative: Rash Musculoskeletal: No Pain Extremities: Present: normal. Absent: edema - Labs and Meds CBC 06/30/19 Range/Units 05:52 WBC 9.7 (4.5-11.0) K/mm3 RBC 5.05 H (3.65-5.03) M/mm3 Hgb 15.4 H (11.8-15.2) gm/dl Hct 45.9 H (35.5-45.6) % Plt Count 215 (140-440) K/mm3 Lymph # 2.8 (1.2-5.4) K/mm3 [place] # 0.6 (0.0-0.8) K/mm3 Eos # 0.2 (0.0-0.4) K/mm3 Baso # 0.1 (0.0-0.1) K/mm3 Comprehensive Metabolic Panel 06/30/19 Range/Units 05:52 Sodium 141 (137-145) mmol/L Potassium 4.4 (3.6-5.0) mmol/L Chloride 102.7 (98-107) mmol/L Carbon Dioxide 30 (22-30) mmol/L BUN 18 (9-20) mg/dL Creatinine 1.2 (0.8-1.5) mg/dL Glucose 151 H (75-100) mg/dL Calcium 9.0 (8.4-10.2) mg/dL - Imaging and Cardiology EKG: report reviewed, image reviewed Echo: pending, report reviewed (06/2019: EF 15-20%, mild MR, mild TR, mild diltatation of aortic root) - EKG Sinus rhythms and dysrhythmias: sinus rhythm Chamber hypertrophy or enlargement: left ventricular hypertro
[2019-07-01 05:29] LABS: Basophils % (Auto) 0.5 % (0.0-1.8); Eosinophils # (Auto) 0.2 K/mm3 (0.0-0.4); Eosinophils % (Auto) 2.6 % (0.0-4.3); Hematocrit 46.2 % (35.5-45.6); Hemoglobin 15.4 gm/dl (11.8-15.2); Lymphocytes # (Auto) 3.2 K/mm3 (1.2-5.4); Lymphocytes % (Auto) 36.8 % (13.4-35.0); Mean Corpuscular HGB Conc 33 % (32-34); Mean Corpuscular Volume 92 fl (84-94); Monocytes # (Auto) 0.7 K/mm3 (0.0-0.8); Platelet Count 237 K/mm3 (140-440); Red Blood Count 5.02 M/mm3 (3.65-5.03); Red Cell Distribution Width 13.6 % (13.2-15.2)
[2019-07-01 05:39] LABS: INR 1.05 (0.87-1.13)
[2019-07-01] MEDS: LASIX PO SCH (05:52)
[2019-07-01 05:56] LABS: BUN/Creatinine Ratio 15; Blood Urea Nitrogen 17 mg/dL (9-20); Calcium 9.1 mg/dL (8.4-10.2); Hemolysis Index 3
[2019-07-01] MEDS ORDERED: NACL 0.9% 500 ML 500 ML ONE (08:08)
[2019-07-01] MEDS: ECOTRIN PO SCH (08:28)
[2019-07-01] MEDS ORDERED: ECOTRIN PO ONE (08:28)
[2019-07-01] MEDS ORDERED: HEPARIN 10,000 UNITS/10 ML ONE (08:45)
[2019-07-01] MEDS ORDERED: XYLOCAINE 2% INFILTRATI ONE (08:45)
[2019-07-01] MEDS ORDERED: CALAN ONE (08:45)
[2019-07-01] MEDS ORDERED: HEPARIN/NS 5000 UNIT/500ML(CATH LAB) 1,000 ML IR ONE (08:45)
[2019-07-01] MEDS ORDERED: VERSED ONE (08:46)
[2019-07-01] MEDS ORDERED: SUBLIMAZE ONE (08:47)
[2019-07-01] MEDS ORDERED: NITROGLYCERIN SYRINGE 3 ML ONE (08:47)
[2019-07-01] MEDS ORDERED: NACL 0.9% 500 ML 500 ML IV SCH (09:00)
--- NOTE | 2019-07-01 10:02 | Cardiac Catherization Report ---
CARDIAC CATHETERIZATION REFERRING PHYSICIAN: Dr. Villela. INDICATION FOR PROCEDURE: The patient is a very pleasant 38-year-old -[place] gentleman, who presents with chest pain and heart failure, intermittent conduction delays, found to have a severe cardiomyopathy, ejection fraction of approximately 15%. He is referred for left heart catheterization to elucidate the etiology of his cardiomyopathy further. Risks, benefits and alternatives discussed prior to obtaining informed consent. PROCEDURE IN DETAIL: The patient was brought to the tutorial laboratory supervisor in a postabsorptive state, prepped and draped in sterile fashion. Brodie's test in right hand is normal. There is 8 mL of 2% lidocaine used to anesthetize the right wrist. A standard 6-Azerbaijani hydrophilic sheath used to cannulate the right radial artery via modified Seldinger technique. All exchanges performed to exchange a J-tip guidewire. JL3.5 catheter was used to engage the left main. No dampening or ventricularization. Cineangiography performed in all projections. JR4 catheter used to cross the aortic valve. Under fluoroscopic guidance, left ventriculography performed in 30 STOKES and 30 WELSH projections via hand injections, catheter flushed. Manual pullback performed with continuous pressure monitoring. Catheter used to engage the right coronary. No dampening or ventricularization. Cineangiography performed in all projections. Next, catheter removed from the body of wire, sheath removed. Manual pressure used to achieve hemostasis. I directly supervised the administration of moderate sedation from 9:14 a.m. to 9:30 a.m. with fentanyl and Versed. DATA: Aortic pressure is 109/80, LV pressure is 109. LVP of 15-19 mmHg. Left ventriculography reveals severe global left ventricular hypokinesis, estimated ejection fraction of 15-20%, moderately dilated left ventricular chamber size. No evidence of aortic stenosis. CORONARY ANATOMY: This is a right dominant system. Left main without significant disease, bifurcates in left anterior descending and left circumflex. Left circumflex, moderate sized vessel, courses AV groove, no significant disease. LAD is a moderate sized vessel, courses anterior intergroove, wraps around the apex, no significant disease. Right coronary is a large vessel, courses the AV groove, distally bifurcates in the posterior and posterolateral branches. No discrete stenosis noted. CONCLUSIONS: 1. No angiographic evidence of significant epicardial coronary disease in this right dominant system. 2. Moderately dilated left ventricular chamber size with severe global left ventricular hypokinesis, estimated ejection fraction of 15-20%. 3. No evidence of aortic stenosis. 4. High normal LVEDP. These findings are consistent with severe nonischemic cardiomyopathy, which is relatively well compensated. Electrophysiology consult pending. Results of procedure explained in length to the patient and family at length. All questions and concerns were addressed. Standard radial care. JOB# [id number] LAYLA/SEBASTIAN
[2019-07-01] MEDS: THERAGRAN Tab PO SCH (10:27)
[2019-07-01] MEDS: ALDACTONE PO SCH (10:27)
[2019-07-01] MEDS: FOLVITE PO SCH (10:27)
[2019-07-01] MEDS: NORVASC PO SCH (10:28)
[2019-07-01] MEDS: ZESTRIL PO SCH (10:28)
[2019-07-01] MEDS: VITAMIN B-1 PO SCH (10:28)
[2019-07-01] MEDS: SODIUM CHLORIDE FLUSH SYRINGE 10 ML IV SCH ×2 (10:29→21:20)
--- NOTE | 2019-07-01 13:04 | Progress Note ---
Assessment and Plan S/p [facility] this AM which showed normal coronaries, EF 15-20%. Currently stable cardiac status. Cont present cardiac management. Cont to hold AV chiquita blocking agents in setting of intermittent high degree AVB. Obtain EP consultation for possible PPM/AICD. The patient has been seen in conjunction with Dr. Arpan Carty who agrees with the assessment and plan of care. - Patient Problems (1) Acute HFrEF (heart failure with reduced ejection fraction) Current Visit: Yes Status: Acute (2) Nonischemic cardiomyopathy Current Visit: Yes Status: Chronic (3) High degree atrioventricular block Current Visit: Yes Status: Acute (4) Uncontrolled hypertension Current Visit: Yes Status: Chronic (5) Sleep apnea Current Visit: Yes Status: Suspected (6) Tobacco use Current Visit: Yes Status: Chronic (7) Alcohol use Current Visit: Yes Status: Chronic (8) Normal coronary arteries Current Visit: Yes Status: Chronic Subjective Date of service: 07/01/19 Principal diagnosis: HF Interval history: pt resting in bed, no current cardiac complaints. for [facility] today. tele reviewed - currently in SR with no bradyarrhythmias noted overnight. Objective Last Vital Signs Temp 98.1 F 07/01/19 10:15 Pulse 88 07/01/19 11:00 Resp 19 07/01/19 11:00 BP 111/87 07/01/19 11:00 Pulse Ox 100 07/01/19 10:00 - Physical Examination General: No Apparent Distress HEENT: Positive: PERRL, Normocephaly, Mucus Membranes Moist Neck: Positive: neck supple, trachea midline Cardiac: Positive: Reg Rate and Rhythm, S1/S2 Lungs: Positive: Decreased Breath Sounds Neuro: Positive: Grossly Intact Abdomen: Positive: Unremarkable. Negative: Tender /Rectal: Other (deferred) Skin: Positive: Clear. Negative: Rash Musculoskeletal: No Pain Extremities: Present: normal. Absent: edema - Labs and Meds Coagulation 07/01/19 Range/Units 04:26 PT 13.4 (12.2-14.9) Sec. INR 1.05 (0.87-1.13) CBC 07/01/19 Range/Units 04:26 WBC 8.8 (4.5-11.0) K/mm3 RBC 5.02 (3.65-5.03) M/mm3 Hgb 15.4 H (11.8-15.2) gm/dl Hct 46.2 H (35.5-45.6) % Plt Count 237 (140-440) K/mm3 Lymph # 3.2 (1.2-5.4) K/mm3 [place] # 0.7 (0.0-0.8) K/mm3 Eos # 0.2 (0.0-0.4) K/mm3 Baso # 0.0 (0.0-0.1) K/mm3 Comprehensive Metabolic Panel 07/01/19 Range/Units 04:26 Sodium 139 (137-145) mmol/L Potassium 4.2 (3.6-5.0) mmol/L Chloride 98.2 (98-107) mmol/L Carbon Dioxide 29 (22-30) mmol/L BUN 17 (9-20) mg/dL Creatinine 1.1 (0.8-1.5) mg/dL Glucose 118 H (75-100) mg/dL Calcium 9.1 (8.4-10.2) mg/dL - Imaging and Cardiology EKG: report reviewed, image reviewed Echo: pending, report reviewed (06/2019: EF 15-20%, mild MR, mild TR, mild diltatation of aortic root) - EKG Sinus rhythms and dysrhythmias: sinus rhythm Chamber hypertrophy or enlargement: left ventricular hypertro
--- NOTE | 2019-07-01 14:52 | Progress Note ---
Assessment and Plan Assessment and plan: AV heart block Patient with occasional episodes of 2-1 AV block and rare episodes of complete heart block. Cardiology potentially to place a pacemaker/AICD. Await EP evaluation Acute HFrEF (heart failure with reduced ejection fraction) Cont. Telemetry, Echo revealed left ventricular chamber size moderately dilated with systolic function severely decreased and EF of 15-20%. Cardiology following Continue lisinopril, Lasix and aldactone. Hold beta carlos due to intermittent bradycardia and heart block noted on telemetry. Cardiac cath was done this morning and coronaries are clean. DIANN (obstructive sleep apnea) Supplemental oxygen, nebulizer therapy, NIPPV as clinically indicated, Chest x ray. Acute hypoxic resp failure cont O2 and Bipap as clinically indicated EtOH dependence thiamine, folic acid, multivitamin daily, Nicotine dependence smoking cessation counseling +15 minutes, supportive care. Obesity (BMI 30.0-34.9) Balanced diet, increased physical activity at discharge, DVT prophylaxis SCD to BLE while in bed. History Interval history: Patient was seen and evaluated this morning, patient had cardiac cath this morning. No chest pain or shortness of breath. Hospitalist Physical - Physical exam Narrative exam: Not in cardiopulmonary distress. The patient appeared well nourished and normally developed. Vital signs as documented. Head exam is unremarkable. No scleral icterus . Neck is without jugular venous distension, thyromegaly, or carotid bruits. Lungs are clear to auscultation. Cardiac exam reveals regular rate and Rhythm. Abdominal exam reveals normal bowel sounds. Extremities are nonedematous and both femoral and pedal pulses are normal. DIRECTOR OF EMPLOYER SERVICES: Alert and oriented 3. No focal weakness. - Constitutional Vitals: Temp Pulse Resp BP Pulse Ox 97.7 F 99 H 20 89/60 100 07/01/19 11:49 07/01/19 11:49 07/01/19 11:49 07/01/19 11:49 07/01/19 11:49 General appearance: Present: mild distress, obese Results - Labs CBC & Chem 7: 07/01/19 04:26 07/01/19 04:26 Labs: Laboratory Last Values WBC 8.8 K/mm3 (4.5-11.0) 07/01/19 04:26 RBC 5.02 M/mm3 (3.65-5.03) 07/01/19 04:26 Hgb 15.4 gm/dl (11.8-15.2) H 07/01/19 04:26 Hct 46.2 % (35.5-45.6) H 07/01/19 04:26 MCV 92 fl (84-94) 07/01/19 04:26 MCH 31 pg (28-32) 07/01/19 04:26 MCHC 33 % (32-34) 07/01/19 04:26 RDW 13.6 % (13.2-15.2) 07/01/19 04:26 Plt Count 237 K/mm3 (140-440) 07/01/19 04:26 Lymph % (Auto) 36.8 % (13.4-35.0) H 07/01/19 04:26 [place] % (Auto) 8.0 % (0.0-7.3) H 07/01/19 04:26 Eos % (Auto) 2.6 % (0.0-4.3) 07/01/19 04:26 Baso % (Auto) 0.5 % (0.0-1.8) 07/01/19 04:26 Lymph # 3.2 K/mm3 (1.2-5.4) 07/01/19 04:26 [place] # 0.7 K/mm3 (0.0-0.8) 07/01/19 04:26 Eos # 0.2 K/mm3 (0.0-0.4) 07/01/19 04:26 Baso # 0.0 K/mm3 (0.0-0.1) 07/01/19 04:26 Seg Neutrophils % 52.1 % (40.0-70.0) 07/01/19 04:26 Seg Neutrophils # 4.6 K/mm3 (1.8-7.7) 07/01/19 04:26 PT 13.4 Sec. (12.2-14.9) 07/01/19 04:26 INR 1.05 (0.87-1.13) 07/01/19 04:26 368.32 ng/mlDDU (0-234) H 06/27/19 19:43 Sodium 139 mmol/L (137-145) 07/01/19 04:26 Potassium 4.2 mmol/L (3.6-5.0) 07/01/19 04:26 Chloride 98.2 mmol/L (98-107) 07/01/19 04:26 Carbon Dioxide 29 mmol/L (22-30) 07/01/19 04:26 16 mmol/L 07/01/19 04:26 BUN 17 mg/dL (9-20) 07/01/19 04:26 1.1 mg/dL (0.8-1.5) 07/01/19 04:26 Estimated GFR > 60 ml/min 07/01/19 04:26 15 % 07/01/19 04:26 Glucose 118 mg/dL (75-100) H 07/01/19 04:26 POC Glucose 158 (70-105) H 06/30/19 16:31 Calcium 9.1 mg/dL (8.4-10.2) 07/01/19 04:26 Magnesium 2.10 mg/dL (1.7-2.3) 06/27/19 19:51 0.30 mg/dL (0.1-1.2) 06/28/19 05:59 < 0.2 mg/dL (0-0.2) 06/27/19 19:44 0.2 mg/dL 06/27/19 19:44 AST 36 units/L (5-40) 06/28/19 05:59 ALT 52 units/L (7-56) 06/28/19 05:59 48 units/L (35-129) 06/28/19 05:59 < 0.010 ng/mL (0.00-0.029) 06/27/19 09:33 NT-Pro-B Natriuret Pep 1580 pg/mL (0-450) H 06/27/19 09:33 6.6 g/dL (6.3-8.2) 06/28/19 05:59 3.4 g/dL (3.9-5) L 06/28/19 05:59 1.1 % 06/28/19 05:59 TSH 5.130 mlU/mL (0.270-4.200) H 06/27/19 19:43 Free T4 1.24 ng/dL (0.76-1.46) 06/27/19 19:43 Active Medications - Current Medications Current Medications: Generic Name Dose Route Start Last Admin Trade Name Cony PRN Reason Stop Dose Admin Acetaminophen 650 mg 06/27/19 13:46 Tylenol PO Q4H PRN Pain MILD(1-3)/Fever >100.5/SIMPSON Albuterol 2.5 mg 06/27/19 13:46 Proventil IH Q4HRT PRN Shortness Of Breath Amlodipine Besylate 10 mg 06/28/19 10:00 07/01/19 10:28 Norvasc PO 10 mg DAILY IJEOMA Administration Aspirin 325 mg 07/01/19 09:00 07/01/19 08:28 Ecotrin PO 325 mg NOW IJEOMA Administration Folic Acid 1 mg 06/27/19 20:00 07/01/19 10:27 Folvite PO 1 mg QDAY IJEOMA Administration Furosemide 40 mg 06/29/19 06:00 07/01/19 05:52 Lasix PO 40 mg DAILY@0600 IJEOMA Administration Sodium Chloride 500 mls @ 50 mls/hr 07/01/19 09:00 07/01/19 08:30 Nacl 0.9% 500 Ml IV 50 mls/hr DIRECT IJEOMA Administration Lisinopril 20 mg 06/28/19 10:00 07/01/19 10:28 Zestril PO 20 mg QDAY IJEOMA Administration Multivitamins 1 each 06/27/19 20:00 07/01/19 10:27 Theragran Tab PO 1 each QDAY IJEOMA Administration Ondansetron HCl 4 mg 06/27/19 13:46 Zofran IV Q8H PRN Nausea And Vomiting Sodium Chloride 10 ml 06/27/19 22:00 07/01/19 10:29 Sodium Chloride Flush Syringe 10 Ml IV 10 ml BID IJEOMA Administration Sodium Chloride 10 ml 06/27/19 13:46 Sodium Chloride Flush Syringe 10 Ml IV PRN PRN LINE FLUSH Spironolactone 25 mg 06/28/19 13:00 07/01/19 10:27 Aldactone PO 25 mg QDAY IJEOMA Administration Thiamine HCl 100 mg 06/27/19 20:00 07/01/19 10:28 Vitamin B-1 PO 100 mg QDAY IJEOMA Administration
[2019-07-01] MEDS: TYLENOL PO PRN ×2 (15:00→21:23)
--- NOTE | 2019-07-01 16:21 | Progress Note ---
Assessment and Plan 38 Male Noncompliance Obesity Hypertension Sleep apnea Alcohol use Tobacco use Acute HFrEF 15-20% Intermittent high-grade AV block/CHB After reviewing the strips it appears that the patient episodes are associated with increased vagal tone likely secondary from his sleep apnea. I discussed the importance of obtaining a CPAP/BiPAP apparatus especially given his advanced heart failure. Currently there is no clear indication for permanent pacing. I am recommending to reinitiate therapy with the low-dose beta carlos given his mild tachycardia. Monitor closely for symptomatic bradycardia overnight. If the patient does develop symptomatic bradycardia would reevaluate. Subjective Date of service: 07/01/19 Principal diagnosis: Acute CHF interrmittent CHB/AVB while sleeping Interval history: This is a 38-year-old male with a known history of noncompliance, obesity, significant sleep apnea, tobacco use, alcohol use, and hypertension who was admitted to [facility] with acute systolic heart failure. An echocardiogram revealed an EF of 15-20% with mild mitral regurgitation. The patient had a left heart catheterization today which revealed an elevated left ventricular end-diastolic pressure but no significant coronary artery disease. During this hospitalization the patient was noted to have episodes of significant bradycardia and intermittent complete heart block or high-grade AV block on telemetry. I had a lengthy discussion with the patient he denies any history of syncope or lightheadedness. He reports that these episodes when the nurse entered the room and asked him how he was feeling he had been sleeping. He also admits that he does not have a BiPAP/CPAP machine at home given he is currently on [place] Medicaid. 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 Objective Vital Signs Temp Pulse Pulse Pulse Pulse Resp BP 07/01/19 13:00 98.0 F 100 H 07/01/19 12:30 108 H 07/01/19 12:00 98.0 F 93 H 07/01/19 11:49 97.7 F 99 H 20 89/60 07/01/19 11:00 88 07/01/19 10:30 87 07/01/19 10:28 104 H 128/92 07/01/19 10:27 104 H 128/92 07/01/19 10:15 98.1 F 96 H 07/01/19 10:12 104 H 128/92 07/01/19 10:00 107 H 100 H 100 H 100 H 18 07/01/19 03:47 97.5 F L 100 H 16 115/86 06/30/19 22:56 97.4 F L 103 H 16 131/98 06/30/19 20:38 99 H 06/30/19 19:24 98.1 F 94 H 18 140/88 06/30/19 17:00 105 H 06/30/19 16:20 97.2 F L 18 120/98 BP Pulse Ox 07/01/19 13:00 117/76 07/01/19 12:30 116/74 07/01/19 12:00 108/63 07/01/19 11:49 100 07/01/19 11:00 111/87 07/01/19 10:30 101/98 07/01/19 10:28 07/01/19 10:27 07/01/19 10:15 108/75 07/01/19 10:12 97 07/01/19 10:00 100 07/01/19 03:47 98 06/30/19 22:56 96 06/30/19 20:38 06/30/19 19:24 96 06/30/19 17:00 06/30/19 16:20 - Physical Examination General: No Apparent Distress HEENT: Positive: PERRL, Normocephaly, Mucus Membranes Moist Neck: Positive: neck supple, trachea midline Cardiac: Positive: Regular Rhythm, Tachycardia Lungs: Positive: Normal Exam, Normal Breath Sounds Neuro: Positive: Grossly Intact Abdomen: Positive: Unremarkable. Negative: Tender /Rectal: Other (deferred) Skin: Positive: Clear. Negative: Rash Musculoskeletal: No Pain Extremities: Present: normal. Absent: edema - Labs and Meds Coagulation 07/01/19 Range/Units 04:26 PT 13.4 (12.2-14.9) Sec. INR 1.05 (0.87-1.13) CBC 07/01/19 Range/Units 04:26 WBC 8.8 (4.5-11.0) K/mm3 RBC 5.02 (3.65-5.03) M/mm3 Hgb 15.4 H (11.8-15.2) gm/dl Hct 46.2 H (35.5-45.6) % Plt Count 237 (140-440) K/mm3 Lymph # 3.2 (1.2-5.4) K/mm3 [place] # 0.7 (0.0-0.8) K/mm3 Eos # 0.2 (0.0-0.4) K/mm3 Baso # 0.0 (0.0-0.1) K/mm3 Comprehensive Metabolic Panel 07/01/19 Range/Units 04:26 Sodium 139 (137-145) mmol/L Potassium 4.2 (3.6-5.0) mmol/L Chloride 98.2 (98-107) mmol/L Carbon Dioxide 29 (22-30) mmol/L BUN 17 (9-20) mg/dL Creatinine 1.1 (0.8-1.5) mg/dL Glucose 118 H (75-100) mg/dL Calcium 9.1 (8.4-10.2) mg/dL - Imaging and Cardiology EKG: report reviewed, image reviewed Echo: pending, report reviewed (06/2019: EF 15-20%, mild MR, mild TR, mild diltatation of aortic root) - EKG Sinus rhythms and dysrhythmias: sinus rhythm Chamber hypertrophy or enlargement: left ventricular hypertro
[2019-07-01] MEDS: LOPRESSOR PO SCH (21:20)
[2019-07-02] MEDS: LASIX PO SCH (05:00)
[2019-07-02 05:35] LABS: BUN/Creatinine Ratio 15; Blood Urea Nitrogen 16 mg/dL (9-20); Hemolysis Index 8
[2019-07-02] MEDS: LOPRESSOR PO SCH (10:03)
[2019-07-02] MEDS: THERAGRAN Tab PO SCH (10:04)
[2019-07-02] MEDS: ALDACTONE PO SCH (10:04)
[2019-07-02] MEDS: VITAMIN B-1 PO SCH (10:04)
[2019-07-02] MEDS: FOLVITE PO SCH (10:04)
[2019-07-02] MEDS: SODIUM CHLORIDE FLUSH SYRINGE 10 ML IV SCH (10:05)
--- NOTE | 2019-07-02 10:26 | Progress Note ---
Assessment and Plan EP consultation noted - After reviewing the strips it appears that the patient episodes are associated with increased vagal tone likely secondary from his sleep apnea. Importance of obtaining a CPAP/BiPAP reiterated. Currently there is no clear indication for permanent pacing. Lopressor resumed. Cardiac defibrillator recommended in setting of NICMP and sinus tachycardia. Pt is agreeable to LifeVest at this time and will plan to readdress AICD candidacy as OP. LifeVest ordered. Currently stable cardiac status. Pt may discharge home from cardiology standpointon current cardiac regimen pending LifeVest placement. Follow up in our [place] office with Dr. Smith on 07/04/2019 @ 1:30PM. The patient has been seen in conjunction with Dr. Arpan Carty who agrees with the assessment and plan of care. - Patient Problems (1) Acute HFrEF (heart failure with reduced ejection fraction) Current Visit: Yes Status: Acute (2) Nonischemic cardiomyopathy Current Visit: Yes Status: Chronic (3) High degree atrioventricular block Current Visit: Yes Status: Acute (4) Uncontrolled hypertension Current Visit: Yes Status: Chronic (5) Sleep apnea Current Visit: Yes Status: Suspected (6) Tobacco use Current Visit: Yes Status: Chronic (7) Alcohol use Current Visit: Yes Status: Chronic (8) Normal coronary arteries Current Visit: Yes Status: Chronic Subjective Date of service: 07/02/19 Principal diagnosis: Acute CHF interrmittent CHB/AVB while sleeping Interval history: pt resting in bed, no current cardiac complaints. tele reviewed - currently in SR with one bout of 2:1 AV block around midnight last night, pt was asleep. Objective Last Vital Signs Temp 97.7 F 07/02/19 08:07 Pulse 69 07/02/19 10:04 Resp 18 07/02/19 08:07 BP 117/69 07/02/19 10:04 Pulse Ox 98 07/02/19 08:07 - Physical Examination General: No Apparent Distress HEENT: Positive: PERRL, Normocephaly, Mucus Membranes Moist Neck: Positive: neck supple, trachea midline Cardiac: Positive: Reg Rate and Rhythm, S1/S2 Lungs: Positive: clear to auscultation Neuro: Positive: Grossly Intact Abdomen: Positive: Unremarkable. Negative: Tender /Rectal: Other (deferred) Skin: Positive: Clear. Negative: Rash Musculoskeletal: No Pain Extremities: Present: normal. Absent: edema - Labs and Meds Comprehensive Metabolic Panel 07/02/19 Range/Units 04:43 Sodium 141 (137-145) mmol/L Potassium 4.7 (3.6-5.0) mmol/L Chloride 100.7 (98-107) mmol/L Carbon Dioxide 30 (22-30) mmol/L BUN 16 (9-20) mg/dL Creatinine 1.1 (0.8-1.5) mg/dL Glucose 146 H (75-100) mg/dL Calcium 9.0 (8.4-10.2) mg/dL - Imaging and Cardiology EKG: report reviewed, image reviewed Echo: report reviewed (06/2019: EF 15-20%, mild MR, mild TR, mild diltatation of aortic root) - Telemetry EKG Rhythm: Sinus Rhythm - EKG Sinus rhythms and dysrhythmias: sinus rhythm Chamber hypertrophy or enlargement: left ventricular hypertro
[2019-07-02] MEDS: ECOTRIN PO SCH (12:15)
[2019-07-02 12:16] VITALS: BP 115/84
[2019-07-02] MEDS: ZESTRIL PO SCH (12:16)
[2019-07-02] MEDS: NORVASC PO SCH (12:16)
--- NOTE | 2019-07-02 14:02 | Progress Note ---
Assessment and Plan Assessment and plan: AV heart block Patient with occasional episodes of 2-1 AV block and rare episodes of complete heart block. Cardiology potentially to place a pacemaker/AICD. Await EP evaluation Acute HFrEF (heart failure with reduced ejection fraction) Cont. Telemetry, Echo revealed left ventricular chamber size moderately dilated with systolic function severely decreased and EF of 15-20%. Cardiology following Continue lisinopril, Lasix and aldactone. Hold beta carlos due to intermittent bradycardia and heart block noted on telemetry. Cardiac cath was done and coronaries are clean. Patient need life vest DIANN (obstructive sleep apnea) Supplemental oxygen, nebulizer therapy, NIPPV as clinically indicated, Chest x ray. Acute hypoxic resp failure cont O2 and Bipap as clinically indicated EtOH dependence thiamine, folic acid, multivitamin daily, Nicotine dependence smoking cessation counseling +15 minutes, supportive care. Obesity (BMI 30.0-34.9) Balanced diet, increased physical activity at discharge, DVT prophylaxis SCD to BLE while in bed. Disposition; pending lifevest. History Interval history: Patient was seen and evaluated this morning. No chest pain or shortness of breath. Hospitalist Physical - Physical exam Narrative exam: Not in cardiopulmonary distress. The patient appeared well nourished and normally developed. Vital signs as documented. Head exam is unremarkable. No scleral icterus . Neck is without jugular venous distension, thyromegaly, or carotid bruits. Lungs are clear to auscultation. Cardiac exam reveals regular rate and Rhythm. Abdominal exam reveals normal bowel sounds. Extremities are nonedematous and both femoral and pedal pulses are normal. 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 No focal weakness. - Constitutional Vitals: Temp Pulse Resp BP Pulse Ox 97.7 F 84 18 115/84 98 07/02/19 08:07 07/02/19 12:16 07/02/19 10:00 07/02/19 12:16 07/02/19 10:00 General appearance: Present: mild distress, obese Results - Labs CBC & Chem 7: 07/01/19 04:26 07/02/19 04:43 Labs: Laboratory Last Values WBC 8.8 K/mm3 (4.5-11.0) 07/01/19 04:26 RBC 5.02 M/mm3 (3.65-5.03) 07/01/19 04:26 Hgb 15.4 gm/dl (11.8-15.2) H 07/01/19 04:26 Hct 46.2 % (35.5-45.6) H 07/01/19 04:26 MCV 92 fl (84-94) 07/01/19 04:26 MCH 31 pg (28-32) 07/01/19 04:26 MCHC 33 % (32-34) 07/01/19 04:26 RDW 13.6 % (13.2-15.2) 07/01/19 04:26 Plt Count 237 K/mm3 (140-440) 07/01/19 04:26 Lymph % (Auto) 36.8 % (13.4-35.0) H 07/01/19 04:26 [place] % (Auto) 8.0 % (0.0-7.3) H 07/01/19 04:26 Eos % (Auto) 2.6 % (0.0-4.3) 07/01/19 04:26 Baso % (Auto) 0.5 % (0.0-1.8) 07/01/19 04:26 Lymph # 3.2 K/mm3 (1.2-5.4) 07/01/19 04:26 [place] # 0.7 K/mm3 (0.0-0.8) 07/01/19 04:26 Eos # 0.2 K/mm3 (0.0-0.4) 07/01/19 04:26 Baso # 0.0 K/mm3 (0.0-0.1) 07/01/19 04:26 Seg Neutrophils % 52.1 % (40.0-70.0) 07/01/19 04:26 Seg Neutrophils # 4.6 K/mm3 (1.8-7.7) 07/01/19 04:26 PT 13.4 Sec. (12.2-14.9) 07/01/19 04:26 INR 1.05 (0.87-1.13) 07/01/19 04:26 368.32 ng/mlDDU (0-234) H 06/27/19 19:43 Sodium 141 mmol/L (137-145) 07/02/19 04:43 Potassium 4.7 mmol/L (3.6-5.0) 07/02/19 04:43 Chloride 100.7 mmol/L (98-107) 07/02/19 04:43 Carbon Dioxide 30 mmol/L (22-30) 07/02/19 04:43 15 mmol/L 07/02/19 04:43 BUN 16 mg/dL (9-20) 07/02/19 04:43 1.1 mg/dL (0.8-1.5) 07/02/19 04:43 Estimated GFR > 60 ml/min 07/02/19 04:43 15 % 07/02/19 04:43 Glucose 146 mg/dL (75-100) H 07/02/19 04:43 POC Glucose 158 (70-105) H 06/30/19 16:31 Calcium 9.0 mg/dL (8.4-10.2) 07/02/19 04:43 Magnesium 2.10 mg/dL (1.7-2.3) 06/27/19 19:51 0.30 mg/dL (0.1-1.2) 06/28/19 05:59 < 0.2 mg/dL (0-0.2) 06/27/19 19:44 0.2 mg/dL 06/27/19 19:44 AST 36 units/L (5-40) 06/28/19 05:59 ALT 52 units/L (7-56) 06/28/19 05:59 48 units/L (35-129) 06/28/19 05:59 < 0.010 ng/mL (0.00-0.029) 06/27/19 09:33 NT-Pro-B Natriuret Pep 1580 pg/mL (0-450) H 06/27/19 09:33 6.6 g/dL (6.3-8.2) 06/28/19 05:59 3.4 g/dL (3.9-5) L 06/28/19 05:59 1.1 % 06/28/19 05:59 TSH 5.130 mlU/mL (0.270-4.200) H 06/27/19 19:43 Free T4 1.24 ng/dL (0.76-1.46) 06/27/19 19:43 Active Medications - Current Medications Current Medications: Generic Name Dose Route Start Last Admin Trade Name Freq PRN Reason Stop Dose Admin Acetaminophen 650 mg 06/27/19 13:46 07/01/19 21:23 Tylenol PO 650 mg Q4H PRN Administration Pain MILD(1-3)/Fever >100.5/SIMPSON Albuterol 2.5 mg 06/27/19 13:46 Proventil IH Q4HRT PRN Shortness Of Breath Amlodipine Besylate 10 mg 06/28/19 10:00 07/02/19 12:16 Norvasc PO Not Given DAILY IJEOMA Aspirin 325 mg 07/01/19 09:00 07/02/19 12:15 Ecotrin PO 325 mg NOW IJEOMA Administration Folic Acid 1 mg 06/27/19 20:00 07/02/19 10:04 Folvite PO 1 mg QDAY IJEOMA Administration Furosemide 40 mg 06/29/19 06:00 07/02/19 05:00 Lasix PO 40 mg DAILY@0600 IJEOMA Administration Sodium Chloride 500 mls @ 50 mls/hr 07/01/19 09:00 07/01/19 08:30 Nacl 0.9% 500 Ml IV 50 mls/hr DIRECT IJEOMA Administration Lisinopril 20 mg 06/28/19 10:00 07/02/19 12:16 Zestril PO 20 mg QDAY IJEOMA Administration Metoprolol Tartrate 25 mg 07/01/19 22:00 07/02/19 10:03 Lopressor PO 25 mg BID IJEOMA Administration Multivitamins 1 each 06/27/19 20:00 07/02/19 10:04 Theragran Tab PO 1 each QDAY IJEOMA Administration Ondansetron HCl 4 mg 06/27/19 13:46 Zofran IV Q8H PRN Nausea And Vomiting Sodium Chloride 10 ml 06/27/19 22:00 07/02/19 10:05 Sodium Chloride Flush Syringe 10 Ml IV 10 ml BID IJEOMA Administration Sodium Chloride 10 ml 06/27/19 13:46 Sodium Chloride Flush Syringe 10 Ml IV PRN PRN LINE FLUSH Spironolactone 25 mg 06/28/19 13:00 07/02/19 10:04 Aldactone PO 25 mg QDAY IJEOMA Administration Thiamine HCl 100 mg 06/27/19 20:00 07/02/19 10:04 Vitamin B-1 PO 100 mg QDAY IJEOMA Administration
--- NOTE | 2019-07-02 15:31 | Discharge Summary ---
Providers - Providers Date of Admission: 06/27/19 13:46 Attending physician: KRISTEN NULL MD 07/01/19 13:05 Consult to Cardiac Rehabilitation [CONS] Routine Reason For Exam: Cardiac Rehab Evaluation Hospitalization Reason for admission: new-onset CHF Condition: Stable Disposition: DC-01 TO HOME OR SELFCARE Time spent for discharge: 32 minutes - Discharge Diagnoses (1) Acute HFrEF (heart failure with reduced ejection fraction) Status: Acute (2) EtOH dependence Status: Acute (3) High degree atrioventricular block Status: Acute (4) Nicotine dependence Status: Acute Qualifiers: Substance use status: in withdrawal (5) DIANN (obstructive sleep apnea) Status: Acute (6) Obesity (BMI 30.0-34.9) Status: Acute (7) Sinus bradycardia Status: Acute (8) Nonischemic cardiomyopathy Status: Chronic (9) HTN (hypertension) Status: Acute Qualifiers: Hypertension type: essential hypertension Qualified Code(s): I10 - Essential (primary) hypertension Core Measure Documentation - Palliative Care Palliative Care/ Comfort Measures: Not Applicable - Core Measures Any of the following diagnoses?: heart failure Exam - Physical Exam Narrative exam: Not in cardiopulmonary distress. The patient appeared well nourished and normally developed. Vital signs as documented. Head exam is unremarkable. No scleral icterus . Neck is without jugular venous distension, thyromegaly, or carotid bruits. Lungs are clear to auscultation. Cardiac exam reveals regular rate and Rhythm. Abdominal exam reveals normal bowel sounds. Extremities are nonedematous and both femoral and pedal pulses are normal. 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 No focal weakness. - Constitutional Vitals: Temp Pulse Resp BP Pulse Ox 97.7 F 99 H 18 115/84 98 07/02/19 08:07 07/02/19 15:13 07/02/19 10:00 07/02/19 12:16 07/02/19 10:00 Plan Activity: other (avoid sternous exercise) Weight Bearing Status: Full Weight Bearing Diet: low cholesterol, low salt Follow up with: YANCI TRAN MD [Staff Physician] - 7 Days (Follow up in our [place] office with Dr. Smith on 07/04/2019 @ 1:30PM. ) BIVALVE GIOVANNY LEWIS MD [Referring] - 3-5 Days TANYA,ISI S, MD [Staff Physician] - 10 Days KIKE GALINDO MD [Staff Physician] - 14 Days (For sleep study ) Prescriptions: Spironolactone [Aldactone] 25 mg PO QDAY #30 tablet Aspirin EC 325 mg PO NOW #30 tablet Folic Acid [Folvite] 1 mg PO QDAY #30 tablet Furosemide [Lasix TAB] 40 mg PO QDAY #30 tablet Metoprolol [Lopressor TAB] 25 mg PO BID #60 tablet Multivitamin Tab [Multiple Vitamin TAB (Theragran)] 1 each PO QDAY #30 tablet amLODIPine [Norvasc] 10 mg PO DAILY 30 Days #30 tab Thiamine [Vitamin B-1] 100 mg PO QDAY #30 tablet Lisinopril [Zestril TAB] 20 mg PO QDAY #30 tablet
== END 2019-07-02 20:13 | disposition home or self-care (01) | DRG 286 ==
LOC: ED 08:30 → 4A 13:46
PROVIDERS: ADMIT Internal Medicine; ATTEND Internal Medicine
PROC: 5A09357 Assistance with Respiratory Ventilation, Less than 24 Consecutive Hours, Continuous Positive Airway Pressure (ICD-10-PCS; 2019-06-27)
PROC: 5A09357 Assistance with Respiratory Ventilation, Less than 24 Consecutive Hours, Continuous Positive Airway Pressure (ICD-10-PCS; 2019-06-29)
PROC: 4A023N7 Measurement of Cardiac Sampling and Pressure, Left Heart, Percutaneous Approach (ICD-10-PCS; principal; 2019-07-01)
PROC: B2111ZZ Fluoroscopy of Multiple Coronary Arteries using Low Osmolar Contrast (ICD-10-PCS; 2019-07-01)
PROC: B2151ZZ Fluoroscopy of Left Heart using Low Osmolar Contrast (ICD-10-PCS; 2019-07-01)
DX: I11.0 Hypertensive heart disease with heart failure (principal); I50.21 Acute systolic (congestive) heart failure; J96.01 Acute respiratory failure with hypoxia; E66.2 Morbid (severe) obesity with alveolar hypoventilation; F17.213 Nicotine dependence, cigarettes, with withdrawal; I44.2 Atrioventricular block, complete; F10.20 Alcohol dependence, uncomplicated; I42.9 Cardiomyopathy, unspecified; Y90.9 Presence of alcohol in blood, level not specified; Z68.35 Body mass index [BMI] 35.0-35.9, adult; Z79.899 Other long term (current) drug therapy; Z71.6 Tobacco abuse counseling; Z91.19 Patient's noncompliance with other medical treatment and regimen
CPT/HCPCS: 36415; 71046; 80048; 80053; 80076; 82962; 83735; 83880; 84439; 84443; 84484; 85025; 85379; 85610; 87116; 93005; 93010; 93306; 93458; 94640; 94660; 94760; 99406; G0378; C1894; J1644; J1940; J2250; J3010; J7040; Q9967

== ENCOUNTER 2019-10-06 06:29 | Emergency (ER) | payer SELFPAY ==
--- NOTE | 2019-10-06 07:24 | XRay Report ---
CHEST 1 VIEW INDICATION: Chest Pain. COMPARISON: Acute generalized chest pain since last evening FINDINGS: Support devices: None. Heart: Stable mild cardiomegaly. Lungs/Pleura: No acute air space or interstitial disease. Additional findings: None. IMPRESSION: 1. No acute findings. Signer Name: Jasbir Frazier MD Signed: 10/06/2019 7:20 AM Workstation Name: [id number]
[2019-10-06 07:57] LABS: Basophils # (Auto) 0.1 K/mm3 (0.0-0.1); Basophils % (Auto) 0.7 % (0.0-1.8); Eosinophils # (Auto) 0.2 K/mm3 (0.0-0.4); Eosinophils % (Auto) 1.9 % (0.0-4.3); Hematocrit 40.8 % (35.5-45.6); Hemoglobin 13.9 gm/dl (11.8-15.2); Lymphocytes # (Auto) 2.8 K/mm3 (1.2-5.4); Lymphocytes % (Auto) 31.9 % (13.4-35.0); Mean Corpuscular HGB Conc 34 % (32-34); Mean Corpuscular Volume 92 fl (84-94); Monocytes # (Auto) 0.5 K/mm3 (0.0-0.8); Monocytes % (Auto) 5.8 % (0.0-7.3); Platelet Count 182 K/mm3 (140-440); Red Blood Count 4.43 M/mm3 (3.65-5.03); Red Cell Distribution Width 15.8 % (13.2-15.2)
[2019-10-06 08:24] LABS: BUN/Creatinine Ratio 13; Blood Urea Nitrogen 17 mg/dL (9-20); Calcium 9.3 mg/dL (8.4-10.2); Hemolysis Index 9
--- NOTE | 2019-10-06 09:18 | Emergency Department Report ---
ED General Adult HPI - General Chief complaint: Chest Pain Stated complaint: THROAT PAIN Time Seen by Provider: 10/06/19 08:16 Source: patient Mode of arrival: Ambulatory Limitations: No Limitations - History of Present Illness Initial comments: This is a 38-year-old male with history of noncompliance and a cardiomyopathy. Additionally he has sleep apnea. He is noncompliant with all his medications as well as CPAP. He presents to the Hospital complaining of shortness of breath the last few days. He denies admitting of leg swelling. He denies chest pain or pressure. He has not had a productive cough. Last discharge summary: Hospital course: 38 YO Male with HTN, DIANN Noncompliant with CPAP, Nicotine Dependence, ETOH dependence presents to ED for evaluation. Pt states that he has experienced shortness of breath over the past 1week with worsening symptoms over the past 3 days. Patient initially presented to ED on 06/26/19 and left AMA, and returns to ED today for evaluation. Pt Acknowledges Orthopnea/PND, Shortness of Breath, Dypsnea on exertion, Dypsnea at Rest, Decreased exercise tolerance, leg swelling. Pt transported to [facility] via private vehicle. Pt seen and evaluated in ED and found to have symptoms consistent with CHF Decompensation, Obesity Hypoventilation Syndrome. Pt denies Fever, Chills, CP, Palpitations, NVD, T rauma, Skin Rash, Unilateral leg swelling, Calf pain, Individual/Family History of DVT/PE/Bleeding/Blood Clotting Disorders, Hemoptysis, or recent ill contacts. AV heart block Patient with occasional episodes of 2-1 AV block and rare episodes of complete heart block. Patient was seen by cardiology and EP and recommend no pacemaker placement is needed at this time. Acute HFrEF (heart failure with reduced ejection fraction) Echo revealed left ventricular chamber size moderately dilated with systolic function severely decreased and EF of 15-20%. Continue lisinopril, Lasix and aldactone. Metoprolol was added after evaluated by EP. Cardiac cath was done and coronaries are clean. Patient discharged with life vest, will follow with cardiology for evaluation of placement of AICD. DIANN (obstructive sleep apnea) - Patient scheduled to see manager pediatric for sleep study as an O/P. Acute hypoxic resp failure - patient was treated with O2 and Bipap as needed. EtOH dependence thiamine, folic acid, multivitamin daily, Nicotine dependence smoking cessation counseling +15 minutes, supportive care. Obesity (BMI 30.0-34.9) Balanced diet, increased physical activity at discharge - Related Data Previous Rx's Medication Instructions Recorded Last Taken Type Aspirin EC 325 mg PO NOW #30 tablet 07/02/19 Unknown Rx Folic Acid [Folvite] 1 mg PO QDAY #30 tablet 07/02/19 Unknown Rx Furosemide [Lasix TAB] 40 mg PO QDAY #30 tablet 07/02/19 Unknown Rx Lisinopril [Zestril TAB] 20 mg PO QDAY #30 tablet 07/02/19 Unknown Rx Metoprolol [Lopressor TAB] 25 mg PO BID #60 tablet 07/02/19 Unknown Rx Multivitamin Tab [Multiple Vitamin 1 each PO QDAY #30 tablet 07/02/19 Unknown Rx TAB (Theragran)] Spironolactone [Aldactone] 25 mg PO QDAY #30 tablet 07/02/19 Unknown Rx Thiamine [Vitamin B-1] 100 mg PO QDAY #30 tablet 07/02/19 Unknown Rx amLODIPine 10 mg PO DAILY 30 Days #30 tab 07/02/19 Unknown Rx Losartan/Hydrochlorothiazide 1 each PO DAILY #30 tablet 10/06/19 Unknown Rx [Losartan-Hctz 100-25 mg Tab] carvediloL [Coreg] 6.25 mg PO BID #60 tablet 10/06/19 Unknown Rx metFORMIN [Glucophage] 500 mg PO BID #60 tablet 10/06/19 Unknown Rx Allergies Allergy/AdvReac Type Severity Reaction Status Date / Time No Known Allergies Allergy Verified 07/14/17 10:18 ED Review of Systems ROS: Stated complaint: THROAT PAIN Other details as noted in HPI Constitutional: denies: chills, fever Eyes: denies: eye pain, eye discharge, vision change ENT: denies: ear pain, throat pain Respiratory: shortness of breath. denies: cough, wheezing Cardiovascular: denies: chest pain, palpitations Endocrine: no symptoms reported Gastrointestinal: denies: abdominal pain, nausea, diarrhea Genitourinary: denies: urgency, dysuria Musculoskeletal: denies: back pain, joint swelling, arthralgia Skin: denies: rash, lesions Neurological: denies: headache, weakness, paresthesias Psychiatric: denies: anxiety, depression Hematological/Lymphatic: denies: easy bleeding, easy bruising ED Past Medical Hx - Past Medical History Previous Medical History?: Yes Hx Hypertension: Yes Hx Congestive Heart Failure: Yes Additional medical history: SLEEP APNEA - Surgical History Past Surgical History?: No - Social History Smoking Status: Never Smoker Substance Use Type: Alcohol, Marijuana - Medications Home Medications: Home Medications Medication Instructions Recorded Confirmed Last Taken Type Aspirin EC 325 mg PO NOW #30 tablet 07/02/19 Unknown Rx Folic Acid [Folvite] 1 mg PO QDAY #30 tablet 07/02/19 Unknown Rx Furosemide [Lasix TAB] 40 mg PO QDAY #30 tablet 07/02/19 Unknown Rx Lisinopril [Zestril TAB] 20 mg PO QDAY #30 tablet 07/02/19 Unknown Rx Metoprolol [Lopressor TAB] 25 mg PO BID #60 tablet 07/02/19 Unknown Rx Multivitamin Tab [Multiple Vitamin 1 each PO QDAY #30 tablet 07/02/19 Unknown Rx TAB (Theragran)] Spironolactone [Aldactone] 25 mg PO QDAY #30 tablet 07/02/19 Unknown Rx Thiamine [Vitamin B-1] 100 mg PO QDAY #30 tablet 07/02/19 Unknown Rx amLODIPine 10 mg PO DAILY 30 Days #30 tab 07/02/19 Unknown Rx Losartan/Hydrochlorothiazide 1 each PO DAILY #30 tablet 10/06/19 Unknown Rx [Losartan-Hctz 100-25 mg Tab] carvediloL [Coreg] 6.25 mg PO BID #60 tablet 10/06/19 Unknown Rx metFORMIN [Glucophage] 500 mg PO BID #60 tablet 10/06/19 Unknown Rx ED Physical Exam - General Limitations: No Limitations General appearance: alert, in no apparent distress - Head Head exam: Present: atraumatic, normocephalic - Eye Eye exam: Present: normal appearance. Absent: scleral icterus - ENT ENT exam: Present: mucous membranes moist - Neck Neck exam: Present: normal inspection - Respiratory Respiratory exam: Present: normal lung sounds bilaterally. Absent: respiratory distress - Cardiovascular Cardiovascular Exam: Present: regular rate, normal rhythm. Absent: systolic murmur, diastolic murmur, rubs, gallop - GI/Abdominal GI/Abdominal exam: Present: soft, normal bowel sounds. Absent: distended, tenderness, guarding, rebound, rigid - Rectal Rectal exam: Present: deferred - Extremities Exam Extremities exam: Present: normal inspection, other (slight pretibial edema). Absent: pedal edema - Back Exam Back exam: Present: normal inspection - Neurological Exam Neurological exam: Present: alert, oriented X3, CN II-XII intact. Absent: motor sensory deficit - Psychiatric Psychiatric exam: Present: normal affect, normal mood - Skin Skin exam: Present: warm, dry, intact, normal color. Absent: rash ED Course Vital Signs 10/06/19 10/06/19 10/06/19 06:45 08:09 08:32 Temperature 98.4 F Pulse Rate 99 H 94 H Respiratory 18 24 19 Rate Blood Pressure 148/107 Blood Pressure [Left] O2 Sat by Pulse 95 97 Oximetry 10/06/19 10/06/19 10/06/19 08:35 09:00 10:00 Temperature Pulse Rate 77 101 H 88 Respiratory 19 19 Rate Blood Pressure 135/96 Blood Pressure 155/101 [Left] O2 Sat by Pulse 97 96 97 Oximetry 10/06/19 11:00 Temperature Pulse Rate 87 Respiratory 22 Rate Blood Pressure 129/99 Blood Pressure [Left] O2 Sat by Pulse 100 Oximetry - Reevaluation(s) Reevaluation #1: Patient has been in no respiratory distress. Surgeries have been fine. His work of breathing has been fine. He is not compliant with his medications. He can be treated with a regimen for CHF and type 2 diabetes as an outpatient. He is referred for follow-up at [facility]. 10/06/19 13:28 ED Medical Decision Making - Lab Data Result diagrams: 10/06/19 07:43 10/06/19 07:43 Laboratory Results - last 24 hr 10/06/19 10/06/19 10/06/19 07:43 07:43 07:43 WBC 8.7 RBC 4.43 Hgb 13.9 Hct 40.8 MCV 92 MCH 31 MCHC 34 RDW 15.8 H Plt Count 182 Lymph % (Auto) 31.9 [place] % (Auto) 5.8 Eos % (Auto) 1.9 Baso % (Auto) 0.7 Lymph # 2.8 [place] # 0.5 Eos # 0.2 Baso # 0.1 Seg Neutrophils % 59.7 Seg Neutrophils # 5.2 PT INR APTT Sodium 141 Potassium 4.4 Chloride 103.8 Carbon Dioxide 23 Anion Gap 19 BUN 17 Creatinine 1.3 Estimated GFR > 60 BUN/Creatinine Ratio 13 Glucose 176 H Calcium 9.3 Magnesium 2.00 Total Bilirubin 0.30 Direct Bilirubin < 0.2 AST 20 ALT 18 Alkaline Phosphatase 56 Total Creatine Kinase 325 H CK-MB (CK-2) 5.3 H CK-MB (CK-2) Rel Index 1.6 Troponin T < 0.010 NT-Pro-B Natriuret Pep 606.0 H Total Protein 7.5 Albumin 4.2 Albumin/Globulin Ratio 1.3 10/06/19 10/06/19 08:55 10:26 WBC RBC Hgb Hct MCV MCH MCHC RDW Plt Count Lymph % (Auto) [place] % (Auto) Eos % (Auto) Baso % (Auto) Lymph # [place] # Eos # Baso # Seg Neutrophils % Seg Neutrophils # PT 13.4 INR 1.01 APTT 31.3 Sodium Potassium Chloride Carbon Dioxide Anion Gap BUN Creatinine Estimated GFR BUN/Creatinine Ratio Glucose Calcium Magnesium Total Bilirubin Direct Bilirubin AST ALT Alkaline Phosphatase Total Creatine Kinase CK-MB (CK-2) CK-MB (CK-2) Rel Index Troponin T < 0.010 NT-Pro-B Natriuret Pep Total Protein Albumin Albumin/Globulin Ratio Critical care attestation.: If time is entered above; I have spent that time in minutes in the direct care of this critically ill patient, excluding procedure time. ED Disposition Clinical Impression: Acute on chronic congestive heart failure Qualifiers: Heart failure type: unspecified Qualified Code(s): I50.9 - Heart failure, unspecified Type 2 diabetes mellitus Qualifiers: Diabetes mellitus manager terminal insulin use: unspecified manager terminal insulin use status Diabetes mellitus complication status: without complication Qualified Code(s): E11.9 - Type 2 diabetes mellitus without complications Disposition: TO HOME OR SELFCARE Is pt being admited?: No Does the pt Need Aspirin: No Condition: Stable Instructions: Diabetes Mellitus Type 2 in Adults (ED), Heart Failure (ED) Additional Instructions: Medications as directed. Follow-up with [facility]. Return any acute change or worsening symptoms. Prescriptions: carvediloL [Coreg] 6.25 mg PO BID #60 tablet metFORMIN [Glucophage] 500 mg PO BID #60 tablet Losartan/Hydrochlorothiazide [Losartan-Hctz 100-25 mg Tab] 1 each PO DAILY #30 tablet Referrals: PRIMARY CARE, [Primary Care Provider] - 3-5 Days Time of Disposition: 13:31
[2019-10-06 09:37] LABS: Creatine Kinase MB 5.3 ng/mL (0.0-4.0)
[2019-10-06 09:38] LABS: Alanine Aminotransferase 18 units/L (7-56); Albumin 4.2 g/dL (3.9-5)
[2019-10-06 09:43] LABS: Bilirubin,Direct < 0.2 mg/dL (0-0.2)
[2019-10-06 09:50] LABS: INR 1.01 (0.87-1.13)
[2019-10-06 09:51] LABS: Partial Thromboplastin Time 31.3 Sec. (24.2-36.6)
[2019-10-06] MEDS ORDERED: FUROSEMIDE 40 MG/4 ML INJ IV ONE (11:18)
[2019-10-06 14:04] VITALS: BP 152/93
== END 2019-10-06 13:45 | disposition home or self-care (01) ==
LOC: ED 06:29
DX: I50.9 Heart failure, unspecified (principal); E11.9 Type 2 diabetes mellitus without complications; I11.0 Hypertensive heart disease with heart failure; F12.10 Cannabis abuse, uncomplicated
CPT/HCPCS: 36415; 71045; 80048; 80076; 82550; 82553; 83735; 83880; 84484; 85025; 85610; 85730; 93005; 93010; 96374; 99284; J1940

== ENCOUNTER 2019-12-30 09:24 | Emergency (ER) | payer SELFPAY ==
[2019-12-30] MEDS ORDERED: ASPIRIN 325 MG TAB PO ONE (09:39)
[2019-12-30 10:31] LABS: Basophils % (Auto) 0.4 % (0.0-1.8); Eosinophils # (Auto) 0.2 K/mm3 (0.0-0.4); Hematocrit 42.1 % (35.5-45.6); Hemoglobin 14.2 gm/dl (11.8-15.2); Lymphocytes % (Auto) 31.1 % (13.4-35.0); Mean Corpuscular HGB Conc 34 % (32-34); Mean Corpuscular Volume 94 fl (84-94); Monocytes # (Auto) 0.6 K/mm3 (0.0-0.8); Monocytes % (Auto) 6.2 % (0.0-7.3); Platelet Count 195 K/mm3 (140-440); Red Blood Count 4.49 M/mm3 (3.65-5.03); Red Cell Distribution Width 13.2 % (13.2-15.2)
--- NOTE | 2019-12-30 10:43 | XRay Report ---
CHEST 2 VIEWS INDICATION / CLINICAL INFORMATION: Chest Pain. COMPARISON: 10/06/2019 FINDINGS: SUPPORT DEVICES: None. HEART / MEDIASTINUM: Mild cardiomegaly LUNGS / PLEURA: Bibasilar pleural parenchymal disease No pneumothorax. ADDITIONAL FINDINGS: No significant additional findings. IMPRESSION: Mild cardiomegaly with bibasilar pleural-parenchymal disease. Signer Name: Caden TRIVEDI Signed: 12/30/2019 10:38 AM Workstation Name: [id number]
[2019-12-30 10:48] LABS: BUN/Creatinine Ratio 15; Blood Urea Nitrogen 17 mg/dL (9-20); Calcium 9.1 mg/dL (8.4-10.2); Hemolysis Index 1
--- NOTE | 2019-12-30 15:21 | Emergency Department Report ---
ED Chest Pain HPI - General Chief Complaint: Chest Pain Stated Complaint: CHEST PAIN Time Seen by Provider: 12/30/19 14:51 Source: patient Mode of arrival: Ambulatory Limitations: No Limitations - History of Present Illness Initial Comments: 39-year-old -Welsh male presents to the emergency department with complaint of a 24-hour history of shortness of breath, mild wheezing, and mild generalized chest discomfort. The patient has a past medical history of CHF, hypertension, obstructive sleep apnea and is a former smoker. He had a cardiac catheterization done in June 2019 that showed an EF of 15 to 20% and nonischemic cardiomyopathy. He has not taken anything for his symptoms prior to presentation today. No recent travel or sick contacts at home. He does not have a primary care physician. 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 - Related Data Previous Rx's Medication Instructions Recorded Last Taken Type Aspirin EC [Ecotrin] 325 mg PO NOW #30 tablet 07/02/19 Unknown Rx Folic Acid [Folvite] 1 mg PO QDAY #30 tablet 07/02/19 Unknown Rx Metoprolol [Lopressor TAB] 25 mg PO BID #60 tablet 07/02/19 Unknown Rx Multivitamin Tab [Multiple Vitamin 1 each PO QDAY #30 tablet 07/02/19 Unknown Rx TAB (Theragran)] Spironolactone [Aldactone] 25 mg PO QDAY #30 tablet 07/02/19 Unknown Rx Thiamine [Vitamin B-1] 100 mg PO QDAY #30 tablet 07/02/19 Unknown Rx amLODIPine 10 mg PO DAILY 30 Days #30 tab 07/02/19 Unknown Rx lisinopriL [Zestril TAB] 20 mg PO QDAY #30 tablet 07/02/19 Unknown Rx Losartan [Cozaar] 100 mg PO QDAY #30 tablet 10/06/19 Unknown Rx Losartan/Hydrochlorothiazide 1 each PO DAILY #30 tablet 10/06/19 Unknown Rx [Losartan-Hctz 100-25 mg Tab] carvediloL [Coreg] 6.25 mg PO BID #60 tablet 10/06/19 Unknown Rx hydroCHLOROthiazide [HCTZ] 25 mg PO QDAY #30 tablet 10/06/19 Unknown Rx metFORMIN [Glucophage] 500 mg PO BID #60 tablet 10/06/19 Unknown Rx Furosemide [Lasix TAB] 40 mg PO QDAY #7 tablet 12/30/19 Unknown Rx Allergies Allergy/AdvReac Type Severity Reaction Status Date / Time No Known Allergies Allergy Verified 07/14/17 10:18 Heart Score - HEART Score History: Slightly suspicious EKG: Non-specific Age: < 45 Risk factors: 1-2 risk factors Troponin: < normal limit HEART Score: 2 - Critical Actions Critical Actions: 0-3 pts:0.9-1.7%risk of adverse cardiac event.Candidate for discharge ED Review of Systems ROS: Stated complaint: CHEST PAIN Other details as noted in HPI Comment: All other systems reviewed and negative Constitutional: denies: chills, fever Eyes: denies: eye pain, vision change ENT: denies: ear pain, throat pain Respiratory: shortness of breath, wheezing Cardiovascular: chest pain. denies: palpitations Gastrointestinal: denies: abdominal pain, vomiting Genitourinary: denies: dysuria, discharge Musculoskeletal: denies: back pain, arthralgia Skin: denies: rash, lesions Neurological: denies: headache, weakness ED Past Medical Hx - Past Medical History Previous Medical History?: Yes Hx Hypertension: Yes Hx Congestive Heart Failure: Yes Additional medical history: SLEEP APNEA - Social History Smoking Status: Never Smoker Substance Use Type: Alcohol, Marijuana - Medications Home Medications: Home Medications Medication Instructions Recorded Confirmed Last Taken Type Aspirin EC [Ecotrin] 325 mg PO NOW #30 tablet 07/02/19 Unknown Rx Folic Acid [Folvite] 1 mg PO QDAY #30 tablet 07/02/19 Unknown Rx Metoprolol [Lopressor TAB] 25 mg PO BID #60 tablet 07/02/19 Unknown Rx Multivitamin Tab [Multiple Vitamin 1 each PO QDAY #30 tablet 07/02/19 Unknown Rx TAB (Theragran)] Spironolactone [Aldactone] 25 mg PO QDAY #30 tablet 07/02/19 Unknown Rx Thiamine [Vitamin B-1] 100 mg PO QDAY #30 tablet 07/02/19 Unknown Rx amLODIPine 10 mg PO DAILY 30 Days #30 tab 07/02/19 Unknown Rx lisinopriL [Zestril TAB] 20 mg PO QDAY #30 tablet 07/02/19 Unknown Rx Losartan [Cozaar] 100 mg PO QDAY #30 tablet 10/06/19 Unknown Rx Losartan/Hydrochlorothiazide 1 each PO DAILY #30 tablet 10/06/19 Unknown Rx [Losartan-Hctz 100-25 mg Tab] carvediloL [Coreg] 6.25 mg PO BID #60 tablet 10/06/19 Unknown Rx hydroCHLOROthiazide [HCTZ] 25 mg PO QDAY #30 tablet 10/06/19 Unknown Rx metFORMIN [Glucophage] 500 mg PO BID #60 tablet 10/06/19 Unknown Rx Furosemide [Lasix TAB] 40 mg PO QDAY #7 tablet 12/30/19 Unknown Rx ED Physical Exam - General Limitations: No Limitations - Other Other exam information: GENERAL: The patient is well-developed well-nourished. HENT: Normocephalic. Atraumatic. Patient has moist mucous membranes. EYES: Extraocular motions are intact. NECK: Supple. Trachea is midline. CHEST/LUNGS: Mildly coarse breath sounds. No tachypnea or accessory muscle use. There is no respiratory distress noted. HEART/CARDIOVASCULAR: Regular. There is no tachycardia. There is no murmur. ABDOMEN: Abdomen is soft, nontender. Patient has normal bowel sounds. There is no abdominal distention. SKIN: Skin is warm and dry. Mild pitting swelling of the bilateral lower extremities. NEURO: The patient is awake, alert, and oriented. The patient is cooperative. The patient has no focal neurologic deficits. Normal speech. MUSCULOSKELETAL: There is no tenderness or deformity. There is no evidence of acute injury. ED Course Vital Signs 12/30/19 12/30/19 09:36 19:52 Temperature 97.8 F 97.4 F L Pulse Rate 105 H 98 H Respiratory 20 20 Rate Blood Pressure 151/107 Blood Pressure 138/101 [Left] O2 Sat by Pulse 97 96 Oximetry YAHIR score - Yahir Score Age > 65: (0) No Aspirin use within the Past 7 Days: (0) No 3 or more CAD Risk Factors: (0) No 2 or more Angina events in past 24 hrs: (1) Yes Known CAD with more than 50% Stenosis: (0) No Elevated Cardiac Markers: (0) No ST Deviation Greater than 0.5mm: (0) No YAHIR Score: 1 ED Medical Decision Making - Lab Data Result diagrams: 12/30/19 09:46 12/30/19 09:46 - EKG Data -: EKG Interpreted by Ne EKG shows normal: sinus rhythm, axis (Left axis deviation), intervals (Prolonged QTC), QRS complexes (Left anterior fascicular block, LVH), ST-T waves Rate: normal - EKG Data When compared to previous EKG there are: no significant change Interpretation: unchanged when compared t (10/06/19) - Radiology Data Radiology results: report reviewed, image reviewed interpreted by me: Chest x-ray shows some cardiomegaly. No pneumonia or overt pleural effusions. No pneumothorax. CTA of the chest with 3D Reconstruction Indication: ,Shortness of breath, elevated d-dimer Technique: TECHNIQUE: Axial CT images were obtained through the chest after injection of 100 cc of Omnipaque 350 IV contrast. 3 plane MIP reconstructions were produced. All CT scans at this location are performed using CT dose reduction for ALARA by means of automated exposure control. COMPARISON: None Automatic exposure control was utilized in an attempt to reduce radiation dose. Findings: Pulmonary arteries: The main pulmonary artery and right and left pulmonary artery branches fill satisfactorily with contrast. No pulmonary embolus is seen. Lungs: There are very small bilateral pleural effusions. There is interstitial disease in the lungs likely representing edema. Mediastinum: The heart is enlarged. Contrast into the inferior venous cava hepatic veins indicating component of right heart failure. There is mild adenopathy in the mediastinum specific. On review of bone windows, no acute osseous abnormalities are seen area Aorta: Normal in diameter. Impression: No pulmonary embolus is seen. There is mild nonspecific mediastinal adenopathy. There is cardiomegaly. There are very small pleural effusions. There is diffuse interstitial disease in the lungs likely representing pulmonary edema. - Medical Decision Making This patient presents to the emergency department with a complaint of some shortness of breath and mild chest discomfort. EKG does not show any morphology consistent with ST elevation NJ and is unchanged from previous. Chest x-ray shows some cardiomegaly without any pneumonia, overt pleural effusions or any pneumothorax. Patient's CBC and metabolic panel are unremarkable. Patient has had negative troponins x3. His BNP was about 1800. He was given 40 mg of IV Lasix for diuresis. The d-dimer level was slightly elevated so a CT angiography of the chest was done that did not show any pulmonary embolism, dissection, aneurysm and just showed very small pleural effusions with some mild pulmonary edema. Patient's vital signs been stable throughout his ED course. He was reevaluated multiple times over multiple hours and says he is feeling greatly improved. There has been significant diuresis. He does not have any orthopnea or exertional dyspnea. His chest pain is completely resolved. He has a heart score of 2 and a low YAHIR score. He had a previous cardiac catheterization done in June that did not show any obstructive coronary artery disease. For all these reasons the patient will be discharged home to attempt outpatient treatment. His information has been sent over to [facility] cardiology for close outpatient follow-up. He will be placed on some Lasix to continue his diuresis. The patient will return to the emergency department immediately with any worsening of his symptoms or any acute distress. - Differential Diagnosis CHF, Pneumonia, NJ, PE, Asthma Critical Care Time: No Critical care attestation.: If time is entered above; I have spent that time in minutes in the direct care of this critically ill patient, excluding procedure time. ED Disposition Clinical Impression: CHF exacerbation Qualifiers: Heart failure type: unspecified Qualified Code(s): I50.9 - Heart failure, unspecified Hypertension Qualifiers: Hypertension type: essential hypertension Qualified Code(s): I10 - Essential (primary) hypertension Disposition: - TO HOME OR SELFCARE Is pt being admited?: No Condition: Stable Instructions: Heart Failure (ED), Hypertension (ED) Additional Instructions: Please follow-up with a primary care physician in the next few days. I am sending your contact information to [facility] and someone from their office should be contacting you shortly for close outpatient follow- up. Return to the emergency department with any worsening of your symptoms or any acute distress. Prescriptions: Furosemide [Lasix TAB] 40 mg PO QDAY #7 tablet Referrals: [facility] [Outside] - 3-5 Days [facility] [Provider Group] - 2-3 Days DEVEN BELLO DO [Staff Physician] - Time of Disposition: 19:09
[2019-12-30] MEDS ORDERED: FUROSEMIDE 40 MG/4 ML INJ IV ONE (17:04)
[2019-12-30] MEDS ORDERED: ASPIRIN 325 MG TAB ONE (18:43)
--- NOTE | 2019-12-30 18:43 | Cat Scan Report ---
CTA of the chest with 3D Reconstruction Indication: ,Shortness of breath, elevated d-dimer Technique: TECHNIQUE: Axial CT images were obtained through the chest after injection of 100 cc of Omnipaque 350 IV contrast. 3 plane MIP reconstructions were produced. All CT scans at this location are performed using CT dose reduction for ALARA by means of automated exposure control. COMPARISON: None Automatic exposure control was utilized in an attempt to reduce radiation dose. Findings: Pulmonary arteries: The main pulmonary artery and right and left pulmonary artery branches fill satis factorily with contrast. No pulmonary embolus is seen. Lungs: There are very small bilateral pleural effusions. There is interstitial disease in the lungs l ikely representing edema. Mediastinum: The heart is enlarged. Contrast into the inferior venous cava hepatic veins indicating c omponent of right heart failure. There is mild adenopathy in the mediastinum specific. On review of bone windows, no acute osseous abnormalities are seen area Aorta: Normal in diameter. Impression: No pulmonary embolus is seen. There is mild nonspecific mediastinal adenopathy. There is cardiomegaly. There are very small pleural effusions. There is diffuse interstitial disease in the lungs likely representing pulmonary edema. Signer Name: Edi Carroll MD Signed: 12/30/2019 6:38 PM Workstation Name: [id number]
[2019-12-30 19:53] VITALS: BP 138/101
== END 2019-12-30 19:54 | disposition home or self-care (01) ==
LOC: ED 09:24
DX: I11.0 Hypertensive heart disease with heart failure (principal); I50.9 Heart failure, unspecified; G47.30 Sleep apnea, unspecified; F12.90 Cannabis use, unspecified, uncomplicated; Z79.899 Other long term (current) drug therapy; Z79.82 Long term (current) use of aspirin
CPT/HCPCS: 36415; 71046; 71275; 80048; 83880; 84484; 85025; 85379; 93005; 93010; 96374; 99285; J1940; Q9967

== ENCOUNTER 2020-01-11 22:40 | Emergency (ER) | payer SELFPAY ==
--- NOTE | 2020-01-12 02:39 | Emergency Department Report ---
ED Upper Extremity Inj HPI - General Chief Complaint: Extremity Injury, Upper Stated Complaint: POSS BROKEN L RING FINGER/PAIN Time Seen by Provider: 01/12/20 01:50 Source: patient Mode of arrival: Ambulatory Limitations: No Limitations - History of Present Illness Initial Comments: Patient is a 39-year-old male presents emergency room with complaints of a left ring finger injury that occurred last night. He states that he was getting into the bed when his finger got caught underneath him and he felt a popping sensation. He states that he has not been able to flex the finger since the incident. He denies ever injuring in the past. He denies any numbness or weakness. He has a past medical history of HTN, DM, HLD, CHF. He denies any allergies to medications. - Related Data Previous Rx's Medication Instructions Recorded Last Taken Type Aspirin EC [Ecotrin] 325 mg PO NOW #30 tablet 07/02/19 Unknown Rx Folic Acid [Folvite] 1 mg PO QDAY #30 tablet 07/02/19 Unknown Rx Metoprolol [Lopressor TAB] 25 mg PO BID #60 tablet 07/02/19 Unknown Rx Multivitamin Tab [Multiple Vitamin 1 each PO QDAY #30 tablet 07/02/19 Unknown Rx TAB (Theragran)] Spironolactone [Aldactone] 25 mg PO QDAY #30 tablet 07/02/19 Unknown Rx Thiamine [Vitamin B-1] 100 mg PO QDAY #30 tablet 07/02/19 Unknown Rx amLODIPine 10 mg PO DAILY 30 Days #30 tab 07/02/19 Unknown Rx lisinopriL [Zestril TAB] 20 mg PO QDAY #30 tablet 07/02/19 Unknown Rx Losartan [Cozaar] 100 mg PO QDAY #30 tablet 10/06/19 Unknown Rx Losartan/Hydrochlorothiazide 1 each PO DAILY #30 tablet 10/06/19 Unknown Rx [Losartan-Hctz 100-25 mg Tab] carvediloL [Coreg] 6.25 mg PO BID #60 tablet 10/06/19 Unknown Rx hydroCHLOROthiazide [HCTZ] 25 mg PO QDAY #30 tablet 10/06/19 Unknown Rx metFORMIN [Glucophage] 500 mg PO BID #60 tablet 10/06/19 Unknown Rx Furosemide [Lasix TAB] 40 mg PO QDAY #7 tablet 12/30/19 Unknown Rx Naproxen [EC-Naprosyn] 500 mg PO BID PRN #14 tablet. 01/12/20 Unknown Rx Allergies Allergy/AdvReac Type Severity Reaction Status Date / Time No Known Allergies Allergy Verified 07/14/17 10:18 ED Review of Systems ROS: Stated complaint: POSS BROKEN L RING FINGER/PAIN Other details as noted in HPI Comment: All other systems reviewed and negative ED Past Medical Hx - Past Medical History Hx Hypertension: Yes Hx Congestive Heart Failure: Yes Additional medical history: SLEEP APNEA - Social History Smoking Status: Never Smoker Substance Use Type: None - Medications Home Medications: Home Medications Medication Instructions Recorded Confirmed Last Taken Type Aspirin EC [Ecotrin] 325 mg PO NOW #30 tablet 07/02/19 Unknown Rx Folic Acid [Folvite] 1 mg PO QDAY #30 tablet 07/02/19 Unknown Rx Metoprolol [Lopressor TAB] 25 mg PO BID #60 tablet 07/02/19 Unknown Rx Multivitamin Tab [Multiple Vitamin 1 each PO QDAY #30 tablet 07/02/19 Unknown Rx TAB (Theragran)] Spironolactone [Aldactone] 25 mg PO QDAY #30 tablet 07/02/19 Unknown Rx Thiamine [Vitamin B-1] 100 mg PO QDAY #30 tablet 07/02/19 Unknown Rx amLODIPine 10 mg PO DAILY 30 Days #30 tab 07/02/19 Unknown Rx lisinopriL [Zestril TAB] 20 mg PO QDAY #30 tablet 07/02/19 Unknown Rx Losartan [Cozaar] 100 mg PO QDAY #30 tablet 10/06/19 Unknown Rx Losartan/Hydrochlorothiazide 1 each PO DAILY #30 tablet 10/06/19 Unknown Rx [Losartan-Hctz 100-25 mg Tab] carvediloL [Coreg] 6.25 mg PO BID #60 tablet 10/06/19 Unknown Rx hydroCHLOROthiazide [HCTZ] 25 mg PO QDAY #30 tablet 10/06/19 Unknown Rx metFORMIN [Glucophage] 500 mg PO BID #60 tablet 10/06/19 Unknown Rx Furosemide [Lasix TAB] 40 mg PO QDAY #7 tablet 12/30/19 Unknown Rx Naproxen [EC-Naprosyn] 500 mg PO BID PRN #14 tablet. 01/12/20 Unknown Rx ED Physical Exam - General Limitations: No Limitations General appearance: alert, in no apparent distress - Head Head exam: Present: atraumatic, normocephalic - Eye Eye exam: Present: normal appearance - ENT ENT exam: Present: mucous membranes moist - Extremities Exam Extremities exam: Present: other (no bony ttp, unable to flex at the left ring finger PIP joint, small edema to the finger, no erythema, no increased warmth, neurovasculalry intact) - Neurological Exam Neurological exam: Present: alert, oriented X3 - Psychiatric Psychiatric exam: Present: normal affect, normal mood - Skin Skin exam: Present: warm, dry, intact ED Course Vital Signs 01/11/20 01/12/20 22:45 04:06 Temperature 97.8 F 97.8 F Pulse Rate 99 H 89 Respiratory 18 18 Rate Blood Pressure 147/101 Blood Pressure 139/98 [Right] O2 Sat by Pulse 98 100 Oximetry ED Medical Decision Making - Radiology Data Radiology results: report reviewed X-ray left hand Dictated by Caden Rock MD Flexion deformity of the distal interphalangeal joint of the ring finger no other significant abnormality - Medical Decision Making Patient is a 39-year-old male presents emergency room with complaints of a left ring finger injury that occurred last night. He states that he was getting into the bed when his finger got caught underneath him and he felt a popping sensation. He states that he has not been able to flex the finger since the incident. He denies ever injuring in the past. He denies any numbness or weakness. He has a past medical history of HTN, DM, HLD, CHF. He denies any allergies to medications. Vitals are stable. On exam: no bony ttp, unable to flex at the left ring finger PIP joint, small edema to the finger, no erythema, no increased warmth, neurovasculalry intact. XR left hand: Flexion deformity of the distal interphalangeal joint of the ring finger no other significant abnormality. Discussed x-ray findings with patient. Patient placed in finger splint. Advised patient that he would need to be seen by an orthopedic doctor for further evaluation. Patient given prescription for naproxen. advised pt please take medication as prescribed as needed. May ice the finger for 15 minutes at a time. Please wear finger splint until you have been cleared by orthopedic doctor. Please follow-up with orthopedic doctor. Return to the emergency room for any new or worsening symptoms. - Differential Diagnosis strain, sprain, fx, dislocation, mallet finger, trigger finger Critical care attestation.: If time is entered above; I have spent that time in minutes in the direct care of this critically ill patient, excluding procedure time. ED Disposition Clinical Impression: Injury of left ring finger Qualifiers: Encounter type: initial encounter Qualified Code(s): S69.92XA - Unspecified injury of left wrist, hand and finger(s), initial encounter Finger sprain Qualifiers: Encounter type: initial encounter Finger: ring finger Sprain of finger site: interphalangeal joint Laterality: left Qualified Code(s): S63.635A - Sprain of interphalangeal joint of left ring finger, initial encounter Disposition: TO HOME OR SELFCARE Is pt being admited?: No Does the pt Need Aspirin: No Condition: Stable Instructions: Finger Sprain (ED) Additional Instructions: Please take medication as prescribed as needed. May ice the finger for 15 minutes at a time. Please wear finger splint until you have been cleared by orthopedic doctor. Please follow-up with orthopedic doctor. Return to the emergency room for any new or worsening symptoms. Prescriptions: Naproxen [EC-Naprosyn] 500 mg PO BID PRN #14 tablet.dr MCKEON Reason: pain Referrals: CRISTINE RAMON MD [Staff Physician] - 2-3 Days [facility] [Provider Group] - 2-3 Days Time of Disposition: 03:54 Print Language: PERSIAN
--- NOTE | 2020-01-12 03:33 | XRay Report ---
LEFT HAND 3 VIEWS INDICATION / CLINICAL INFORMATION: left ring finger injury, unable to flex. COMPARISON: None available. FINDINGS: Flexion deformity of the distal interphalangeal joint of the ring finger. No other significant skelet al abnormality. Signer Name: Caden Rock MD FACPhilip Signed: 01/12/2020 3:28 AM Workstation Name: [id number]
[2020-01-12 04:07] VITALS: BP 139/98
== END 2020-01-12 04:07 | disposition home or self-care (01) ==
LOC: ED 22:40
DX: S63.615A Unspecified sprain of left ring finger, initial encounter (principal); S69.92XA Unspecified injury of left wrist, hand and finger(s), initial encounter; I11.0 Hypertensive heart disease with heart failure; I50.9 Heart failure, unspecified; Z79.899 Other long term (current) drug therapy; Z79.82 Long term (current) use of aspirin; X50.9XXA Other and unspecified overexertion or strenuous movements or postures, initial encounter; Y93.89 Activity, other specified; Y92.89 Other specified places as the place of occurrence of the external cause; Y99.8 Other external cause status

== ENCOUNTER 2020-01-31 00:57 | Emergency (ER) | payer SELFPAY ==
[2020-01-31 01:30] LABS: Basophils # (Auto) 0.1 K/mm3 (0.0-0.1); Basophils % (Auto) 0.5 % (0.0-1.8); Eosinophils # (Auto) 0.2 K/mm3 (0.0-0.4); Eosinophils % (Auto) 1.5 % (0.0-4.3); Hematocrit 40.6 % (35.5-45.6); Hemoglobin 14.4 gm/dl (11.8-15.2); Lymphocytes # (Auto) 3.5 K/mm3 (1.2-5.4); Lymphocytes % (Auto) 29.6 % (13.4-35.0); Mean Corpuscular HGB Conc 35 % (32-34); Mean Corpuscular Volume 93 fl (84-94); Monocytes # (Auto) 0.7 K/mm3 (0.0-0.8); Monocytes % (Auto) 5.7 % (0.0-7.3); Platelet Count 207 K/mm3 (140-440); Red Blood Count 4.36 M/mm3 (3.65-5.03); Red Cell Distribution Width 13.6 % (13.2-15.2)
--- NOTE | 2020-01-31 01:38 | XRay Report ---
CHEST 1 VIEW 01/31/2020 1:30 AM INDICATION / CLINICAL INFORMATION: Chest Pain. COMPARISON: 12/30/19 FINDINGS: SUPPORT DEVICES: None. HEART / MEDIASTINUM: Heart is enlarged but stable. LUNGS / PLEURA: Mild to moderate interstitial pulmonary edema with Fabiano B-lines similar to previous study. No pneumothorax. ADDITIONAL FINDINGS: No significant additional findings. IMPRESSION: 1. Cardiomegaly with pulmonary edema. Signer Name: Awa Almanza MD Signed: 01/31/2020 1:34 AM Workstation Name: [id number]
[2020-01-31 01:43] LABS: BUN/Creatinine Ratio 18; Blood Urea Nitrogen 24 mg/dL (9-20); Calcium 9.1 mg/dL (8.4-10.2); Hemolysis Index 11
[2020-01-31] MEDS ORDERED: ACETAMINOPHEN 500 MG TAB PO ONE (01:43)
[2020-01-31] MEDS ORDERED: FUROSEMIDE 40 MG/4 ML INJ IV ONE (01:59)
--- NOTE | 2020-01-31 02:11 | Emergency Department Report ---
ED Chest Pain HPI - General Chief Complaint: Chest Pain Stated Complaint: CHEST DISCOMFORT Time Seen by Provider: 01/31/20 01:43 Source: patient, family Mode of arrival: Ambulatory Limitations: No Limitations - History of Present Illness Initial Comments: 39-year-old male with history of CHF and sleep apnea, presents to ED with chest pain or shortness of breath which he states has been ongoing since June 2019. Patient was admitted at that time and diagnosed with new onset CHF. An echo at that time showed an EF of 15 to 20%. Cardiac cath was also performed which showed clean coronaries. Upon discharge, patient states he was given 30- day supply of his medications. It seems as though patient has been noncompliant with medications since that medication ran out and has not received any refills. 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 Patient presents tonight stating that he feels some dyspnea on exertion, and has had some trouble sleeping. Patient is unable to give an exact timeframe as the onset. He just reports that this has been since June. Patient states he feels as if he has fluid on his lungs again. Patient states the chest pain that he is having is located in his right side, and this is where it was located back in June as well. Patient denies any fever or cough. He denies any swelling to the lower extremities. Patient does admit to drinking an excessive amount of water recently. Patient seen 1 month ago in this ER for same symptoms. MD Complaint: chest pain, other (shortness of breath) Onset: during exertion Pain Location: right chest Pain Radiation: none Severity: mild Severity scale (0 -10): 0 Consistency: intermittent Improves With: rest Worsens With: exertion re: dyspnea. denies: nausea, vomting, diaphoresis Other Symptoms: denies: cough, fever, leg swelling - Related Data Previous Rx's Medication Instructions Recorded Last Taken Type Aspirin EC [Ecotrin] 325 mg PO NOW #30 tablet 07/02/19 Unknown Rx Folic Acid [Folvite] 1 mg PO QDAY #30 tablet 07/02/19 Unknown Rx Metoprolol [Lopressor TAB] 25 mg PO BID #60 tablet 07/02/19 Unknown Rx Multivitamin Tab [Multiple Vitamin 1 each PO QDAY #30 tablet 07/02/19 Unknown Rx TAB (Theragran)] Spironolactone [Aldactone] 25 mg PO QDAY #30 tablet 07/02/19 Unknown Rx Thiamine [Vitamin B-1] 100 mg PO QDAY #30 tablet 07/02/19 Unknown Rx amLODIPine 10 mg PO DAILY 30 Days #30 tab 07/02/19 Unknown Rx lisinopriL [Zestril TAB] 20 mg PO QDAY #30 tablet 07/02/19 Unknown Rx Losartan [Cozaar] 100 mg PO QDAY #30 tablet 10/06/19 Unknown Rx Losartan/Hydrochlorothiazide 1 each PO DAILY #30 tablet 10/06/19 Unknown Rx [Losartan-Hctz 100-25 mg Tab] carvediloL [Coreg] 6.25 mg PO BID #60 tablet 10/06/19 Unknown Rx hydroCHLOROthiazide [HCTZ] 25 mg PO QDAY #30 tablet 10/06/19 Unknown Rx metFORMIN [Glucophage] 500 mg PO BID #60 tablet 10/06/19 Unknown Rx Naproxen [EC-Naprosyn] 500 mg PO BID PRN #14 tablet. 01/12/20 Unknown Rx Furosemide [Lasix TAB] 40 mg PO QDAY #30 tablet 01/31/20 Unknown Rx Allergies Allergy/AdvReac Type Severity Reaction Status Date / Time No Known Allergies Allergy Verified 07/14/17 10:18 Heart Score - HEART Score History: Slightly suspicious EKG: Non-specific Age: < 45 Risk factors: No known risk factors Troponin: < normal limit HEART Score: 1 ED Review of Systems ROS: Stated complaint: CHEST DISCOMFORT Other details as noted in HPI Comment: All other systems reviewed and negative Constitutional: denies: chills, fever Respiratory: SOB with exertion. denies: cough Cardiovascular: chest pain Gastrointestinal: denies: nausea, vomiting Musculoskeletal: other (Denies leg pain or swelling) ED Past Medical Hx - Past Medical History Previous Medical History?: Yes Hx Hypertension: Yes Hx Congestive Heart Failure: Yes Additional medical history: SLEEP APNEA - Surgical History Past Surgical History?: Yes Additional Surgical History: cardiac stents - Social History Smoking Status: Former Smoker Substance Use Type: None - Medications Home Medications: Home Medications Medication Instructions Recorded Confirmed Last Taken Type Aspirin EC [Ecotrin] 325 mg PO NOW #30 tablet 07/02/19 Unknown Rx Folic Acid [Folvite] 1 mg PO QDAY #30 tablet 07/02/19 Unknown Rx Metoprolol [Lopressor TAB] 25 mg PO BID #60 tablet 07/02/19 Unknown Rx Multivitamin Tab [Multiple Vitamin 1 each PO QDAY #30 tablet 07/02/19 Unknown Rx TAB (Theragran)] Spironolactone [Aldactone] 25 mg PO QDAY #30 tablet 07/02/19 Unknown Rx Thiamine [Vitamin B-1] 100 mg PO QDAY #30 tablet 07/02/19 Unknown Rx amLODIPine 10 mg PO DAILY 30 Days #30 tab 07/02/19 Unknown Rx lisinopriL [Zestril TAB] 20 mg PO QDAY #30 tablet 07/02/19 Unknown Rx Losartan [Cozaar] 100 mg PO QDAY #30 tablet 10/06/19 Unknown Rx Losartan/Hydrochlorothiazide 1 each PO DAILY #30 tablet 10/06/19 Unknown Rx [Losartan-Hctz 100-25 mg Tab] carvediloL [Coreg] 6.25 mg PO BID #60 tablet 10/06/19 Unknown Rx hydroCHLOROthiazide [HCTZ] 25 mg PO QDAY #30 tablet 10/06/19 Unknown Rx metFORMIN [Glucophage] 500 mg PO BID #60 tablet 10/06/19 Unknown Rx Naproxen [EC-Naprosyn] 500 mg PO BID PRN #14 tablet.dr 01/12/20 Unknown Rx Furosemide [Lasix TAB] 40 mg PO QDAY #30 tablet 01/31/20 Unknown Rx ED Physical Exam - General Limitations: No Limitations General appearance: alert, in no apparent distress - Head Head exam: Present: atraumatic, normocephalic - Eye Eye exam: Present: normal appearance, EOMI - ENT ENT exam: Present: mucous membranes moist - Neck Neck exam: Present: normal inspection - Respiratory Respiratory exam: Present: normal lung sounds bilaterally. Absent: respiratory distress - Cardiovascular Cardiovascular Exam: Present: regular rate, normal rhythm - GI/Abdominal GI/Abdominal exam: Present: soft. Absent: distended, tenderness - Extremities Exam Extremities exam: Present: pedal edema (trace) - Neurological Exam Neurological exam: Present: alert, oriented X3 - Psychiatric Psychiatric exam: Present: normal affect, normal mood - Skin Skin exam: Present: warm, dry, intact, normal color ED Course Vital Signs 01/31/20 01/31/20 01/31/20 01:03 01:50 03:38 Temperature 97.6 F 98.0 F Pulse Rate 88 88 Respiratory 20 20 20 Rate Blood Pressure 152/103 Blood Pressure 130/91 [Left] O2 Sat by Pulse 96 99 98 Oximetry YAHRI score - Yahir Score Age > 65: (0) No Aspirin use within the Past 7 Days: (0) No 3 or more CAD Risk Factors: (0) No 2 or more Angina events in past 24 hrs: (1) Yes Known CAD with more than 50% Stenosis: (0) No Elevated Cardiac Markers: (0) No ST Deviation Greater than 0.5mm: (0) No YAHIR Score: 1 ED Medical Decision Making - Lab Data Result diagrams: 01/31/20 01:14 01/31/20 01:14 - EKG Data -: EKG Interpreted by Pr EKG shows normal: sinus rhythm, QRS complexes, ST-T waves - EKG Data When compared to previous EKG there are: no significant change (compared to 12/30/2019) Interpretation: other (LBBB) - Radiology Data Radiology results: report reviewed, image reviewed - Medical Decision Making 39-year-old male, noncompliant with therapy, with mild CHF exacerbation. Mild to moderate interstitial edema seen on chest x-ray however patient is in no respiratory distress, O2 sats are normal. Patient reported chest pain, however it is right-sided and has been present since June. EKG shows no acute changes, troponin is normal. Patient admits he has not been taking his Lasix or any other medications that were prescribed to him upon discharge back and June 2019. Patient was given IV Lasix 40 mg here in ED. Patient will be discharged home. Prescription also given for Lasix as well. Outpatient follow- up information for cardiology also given. Patient advised to call and make an appointment. Return precautions given. Patient also advised on fluid restriction. - Differential Diagnosis CHF, ACS, pneumonia Critical care attestation.: If time is entered above; I have spent that time in minutes in the direct care of this critically ill patient, excluding procedure time. ED Disposition Clinical Impression: CHF (congestive heart failure) Disposition: DC-01 TO HOME OR SELFCARE Is pt being admited?: No Condition: Stable Instructions: Heart Failure (ED), Fluid Restriction (ED) Prescriptions: Furosemide [Lasix TAB] 40 mg PO QDAY #30 tablet Referrals: PRIMARY CARE, [Primary Care Provider] - 3-5 Days MAGDALENA [facility] MD [Staff Physician] - 3-5 Days Time of Disposition: 03:48
[2020-01-31 03:39] VITALS: BP 130/91
== END 2020-01-31 04:09 | disposition home or self-care (01) ==
LOC: ED 00:57
DX: I11.0 Hypertensive heart disease with heart failure (principal); I50.9 Heart failure, unspecified; Z87.891 Personal history of nicotine dependence; Z98.890 Other specified postprocedural states; Z79.82 Long term (current) use of aspirin; Z79.899 Other long term (current) drug therapy
CPT/HCPCS: 36415; 71045; 80048; 84484; 85025; 93005; 93010; 96374

== ENCOUNTER 2020-03-28 13:46 | Emergency (ER) | payer SELFPAY ==
[2020-03-28] MEDS ORDERED: SODIUM CHLORIDE 0.9% 1000 ML 1,000 ML IV ONE (14:28)
[2020-03-28] MEDS ORDERED: INSULIN REGULAR, HUMAN 100 UNITS/1 ML IV ONE ×5 (14:29→18:25)
--- NOTE | 2020-03-28 14:41 | Emergency Department Report ---
ED General Adult HPI - General Chief complaint: Hyperglycemia Stated complaint: BLURRY VISION Time Seen by Provider: 03/28/20 14:28 Source: patient Mode of arrival: Ambulatory Limitations: No Limitations - History of Present Illness Initial comments: Patient is 39 years old male with history of hypertension, diabetes and a recent diagnosis of congestive heart failure. Patient presented to the ER stating that he started having blurry vision and when he checked his blood sugar recorded high. Patient also stated that he has been having dry lips and thirsty and increased urinary frequency. Patient denied any fever or chills. No nausea or vomiting. Patient also denied any chest pain or shortness of breath. - Related Data Previous Rx's Medication Instructions Recorded Last Taken Type Aspirin EC [Ecotrin] 325 mg PO NOW #30 tablet 07/02/19 Unknown Rx Folic Acid [Folvite] 1 mg PO QDAY #30 tablet 07/02/19 Unknown Rx Metoprolol [Lopressor TAB] 25 mg PO BID #60 tablet 07/02/19 Unknown Rx Multivitamin Tab [Multiple Vitamin 1 each PO QDAY #30 tablet 07/02/19 Unknown Rx TAB (Theragran)] Spironolactone [Aldactone] 25 mg PO QDAY #30 tablet 07/02/19 Unknown Rx Thiamine [Vitamin B-1] 100 mg PO QDAY #30 tablet 07/02/19 Unknown Rx amLODIPine 10 mg PO DAILY 30 Days #30 tab 07/02/19 Unknown Rx lisinopriL [Zestril TAB] 20 mg PO QDAY #30 tablet 07/02/19 Unknown Rx Losartan [Cozaar] 100 mg PO QDAY #30 tablet 10/06/19 Unknown Rx Losartan/Hydrochlorothiazide 1 each PO DAILY #30 tablet 10/06/19 Unknown Rx [Losartan-Hctz 100-25 mg Tab] carvediloL [Coreg] 6.25 mg PO BID #60 tablet 10/06/19 Unknown Rx hydroCHLOROthiazide [HCTZ] 25 mg PO QDAY #30 tablet 10/06/19 Unknown Rx metFORMIN [Glucophage] 500 mg PO BID #60 tablet 10/06/19 Unknown Rx Naproxen [EC-Naprosyn] 500 mg PO BID PRN #14 tablet 01/12/20 Unknown Rx Furosemide [Lasix TAB] 40 mg PO QDAY #30 tablet 01/31/20 Unknown Rx glipiZIDE [Glucotrol] 5 mg PO BID #60 tablet 03/28/20 Unknown Rx metFORMIN [Glucophage] 850 mg PO BID #60 tablet 03/28/20 Unknown Rx Allergies Allergy/AdvReac Type Severity Reaction Status Date / Time No Known Allergies Allergy Verified 07/14/17 10:18 ED Review of Systems ROS: Stated complaint: BLURRY VISION Other details as noted in HPI Comment: All other systems reviewed and negative Constitutional: denies: chills, fever Respiratory: denies: cough, shortness of breath, SOB with exertion Cardiovascular: denies: chest pain, palpitations Gastrointestinal: denies: abdominal pain, nausea, vomiting, diarrhea, constipation, hematemesis Genitourinary: frequency. denies: dysuria Musculoskeletal: denies: back pain ED Past Medical Hx - Past Medical History Previous Medical History?: Yes Hx Hypertension: Yes Hx Congestive Heart Failure: Yes Hx Diabetes: Yes Additional medical history: SLEEP APNEA - Surgical History Past Surgical History?: Yes Additional Surgical History: cardiac stents - Social History Smoking Status: Former Smoker Substance Use Type: Marijuana - Medications Home Medications: Home Medications Medication Instructions Recorded Confirmed Last Taken Type Aspirin EC [Ecotrin] 325 mg PO NOW #30 tablet 07/02/19 Unknown Rx Folic Acid [Folvite] 1 mg PO QDAY #30 tablet 07/02/19 Unknown Rx Metoprolol [Lopressor TAB] 25 mg PO BID #60 tablet 07/02/19 Unknown Rx Multivitamin Tab [Multiple Vitamin 1 each PO QDAY #30 tablet 07/02/19 Unknown Rx TAB (Theragran)] Spironolactone [Aldactone] 25 mg PO QDAY #30 tablet 07/02/19 Unknown Rx Thiamine [Vitamin B-1] 100 mg PO QDAY #30 tablet 07/02/19 Unknown Rx amLODIPine 10 mg PO DAILY 30 Days #30 tab 07/02/19 Unknown Rx lisinopriL [Zestril TAB] 20 mg PO QDAY #30 tablet 07/02/19 Unknown Rx Losartan [Cozaar] 100 mg PO QDAY #30 tablet 10/06/19 Unknown Rx Losartan/Hydrochlorothiazide 1 each PO DAILY #30 tablet 10/06/19 Unknown Rx [Losartan-Hctz 100-25 mg Tab] carvediloL [Coreg] 6.25 mg PO BID #60 tablet 10/06/19 Unknown Rx hydroCHLOROthiazide [HCTZ] 25 mg PO QDAY #30 tablet 10/06/19 Unknown Rx metFORMIN [Glucophage] 500 mg PO BID #60 tablet 10/06/19 Unknown Rx Naproxen [EC-Naprosyn] 500 mg PO BID PRN #14 tablet.dr 01/12/20 Unknown Rx Furosemide [Lasix TAB] 40 mg PO QDAY #30 tablet 01/31/20 Unknown Rx glipiZIDE [Glucotrol] 5 mg PO BID #60 tablet 03/28/20 Unknown Rx metFORMIN [Glucophage] 850 mg PO BID #60 tablet 03/28/20 Unknown Rx ED Physical Exam - General Limitations: No Limitations General appearance: alert, in no apparent distress - Head Head exam: Present: atraumatic, normocephalic, normal inspection - Eye Eye exam: Present: normal appearance - ENT ENT exam: Present: mucous membranes dry - Neck Neck exam: Present: normal inspection, full ROM. Absent: tenderness, meningismus, lymphadenopathy, thyromegaly - Respiratory Respiratory exam: Present: normal lung sounds bilaterally - Cardiovascular Cardiovascular Exam: Present: regular rate, normal rhythm, normal heart sounds - GI/Abdominal GI/Abdominal exam: Present: soft, normal bowel sounds. Absent: distended, tende rness, guarding, rebound, rigid, organomegaly, mass, bruit, pulsatile mass, hernia - Extremities Exam Extremities exam: Present: normal inspection, full ROM, normal capillary refill. Absent: pedal edema, calf tenderness - Back Exam Back exam: Present: normal inspection, full ROM. Absent: CVA tenderness (R), CVA tenderness (L) - Neurological Exam Neurological exam: Present: alert, oriented X3, CN II-XII intact, normal gait, reflexes normal. Absent: motor sensory deficit - Psychiatric Psychiatric exam: Present: normal mood - Skin Skin exam: Present: warm ED Course Vital Signs 03/28/20 03/28/20 03/28/20 13:53 14:15 14:31 Temperature 97.9 F Pulse Rate 64 107 H 107 H Respiratory 18 25 H 17 Rate Blood Pressure 125/91 123/84 127/79 O2 Sat by Pulse 99 95 94 Oximetry 03/28/20 03/28/20 03/28/20 15:00 15:31 16:01 Temperature Pulse Rate 102 H 120 H 102 H Respiratory 24 16 20 Rate Blood Pressure 130/88 130/88 147/105 O2 Sat by Pulse 98 97 Oximetry 03/28/20 03/28/20 03/28/20 16:30 17:00 17:30 Temperature Pulse Rate 101 H 106 H 97 H Respiratory 11 L 24 20 Rate Blood Pressure 140/98 144/99 144/94 O2 Sat by Pulse 96 95 99 Oximetry 03/28/20 03/28/20 03/28/20 18:00 18:31 19:00 Temperature Pulse Rate 105 H 105 H 102 H Respiratory 25 H 16 20 Rate Blood Pressure 127/88 123/86 119/87 O2 Sat by Pulse 96 99 98 Oximetry 03/28/20 19:30 Temperature Pulse Rate 103 H Respiratory 19 Rate Blood Pressure 128/82 O2 Sat by Pulse 72 L Oximetry ED Medical Decision Making - Lab Data Result diagrams: 03/28/20 14:20 03/28/20 14:20 - EKG Data -: EKG Interpreted by Me EKG shows normal: sinus rhythm Rate: tachycardia - Radiology Data Radiology results: report reviewed - Medical Decision Making Patient is 39 years old male with history of hypertension, diabetes and a recent diagnosis of congestive heart failure. Patient presented to the ER stating that he started having blurry vision and when he checked his blood sugar recorded high. Patient also stated that he has been having dry lips and thirsty and increased urinary frequency. Patient denied any fever or chills. No nausea or vomiting. Patient also denied any chest pain or shortness of breath. EKG shows sinus tachycardia. Chest x-ray is unremarkable with no evidence of pulmonary vascular congestion. Labs reviewed and showed elevated blood glucose. Patient received normal saline and multiple doses of insulin that brought his blood glucose 2. Patient stated that he is out of his metformin for the last 3 weeks. Patient will be given prescription for metformin and I will add glipizide and I gave patient [facility] to follow[facility]up with. Patient also received a printout for diabetes diet. Patient advised to return t o the ER if he develop any new symptoms. Critical care attestation.: If time is entered above; I have spent that time in minutes in the direct care of this critically ill patient, excluding procedure time. ED Disposition Clinical Impression: Acute hyperglycemia Disposition: DC-01 TO HOME OR SELFCARE Is pt being admited?: No Condition: Stable Instructions: Diabetes Mellitus Type 2 in Adults (ED), Diabetic Hyperglycemia (ED) Prescriptions: metFORMIN [Glucophage] 850 mg PO BID #60 tablet glipiZIDE [Glucotrol] 5 mg PO BID #60 tablet Referrals: PRIMARY CARE, [Primary Care Provider] - 3-5 Days [facility] [Provider Group] - 3-5 Days
[2020-03-28 14:44] LABS: Basophils # (Auto) 0.1 K/mm3 (0.0-0.1); Basophils % (Auto) 0.6 % (0.0-1.8); Eosinophils # (Auto) 0.1 K/mm3 (0.0-0.4); Eosinophils % (Auto) 0.9 % (0.0-4.3); Hematocrit 47.8 % (35.5-45.6); Hemoglobin 16.1 gm/dl (11.8-15.2); Lymphocytes # (Auto) 2.4 K/mm3 (1.2-5.4); Lymphocytes % (Auto) 25.3 % (13.4-35.0); Mean Corpuscular HGB Conc 34 % (32-34); Mean Corpuscular Volume 91 fl (84-94); Monocytes # (Auto) 0.5 K/mm3 (0.0-0.8); Monocytes % (Auto) 5.8 % (0.0-7.3); Platelet Count 190 K/mm3 (140-440); Red Blood Count 5.23 M/mm3 (3.65-5.03); Red Cell Distribution Width 13.1 % (13.2-15.2)
[2020-03-28 14:55] LABS: Alanine Aminotransferase 37 units/L (7-56); Albumin 4.1 g/dL (3.9-5); BUN/Creatinine Ratio 18; Blood Urea Nitrogen 23 mg/dL (9-20); Calcium 10.5 mg/dL (8.4-10.2); Hemolysis Index 6
[2020-03-28 16:12] LABS: Bilirubin,Urine NEG (Negative); Blood,Urine NEG (Negative); Color,Urine Straw (Yellow); Protein,Urine <15 mg/dL mg/dL (Negative); Urobilinogen,Urine < 2.0 mg/dL (<2.0)
[2020-03-28] MEDS ORDERED: SODIUM CHLORIDE 0.9% 500 ML 500 ML IV ONE (17:13)
[2020-03-28 19:52] VITALS: BP 128/82
== END 2020-03-28 19:55 | disposition home or self-care (01) ==
LOC: ED 13:46
DX: E11.65 Type 2 diabetes mellitus with hyperglycemia (principal); I11.0 Hypertensive heart disease with heart failure; I50.9 Heart failure, unspecified; F12.10 Cannabis abuse, uncomplicated; Z79.899 Other long term (current) drug therapy
CPT/HCPCS: 36415; 71045; 80053; 81001; 82805; 82962; 83880; 84484; 85025; 93005; 96360; 96361; 96372; 99284; J7030; J7040; J1815

== ENCOUNTER 2020-08-19 06:14 | Emergency (ER) | payer SELFPAY ==
[2020-08-19 06:28] VITALS: BP 113/81
[2020-08-19 07:13] LABS: Basophils # (Auto) 0.1 K/mm3 (0.0-0.1); Basophils % (Auto) 0.6 % (0.0-1.8); Eosinophils # (Auto) 0.1 K/mm3 (0.0-0.4); Eosinophils % (Auto) 1.1 % (0.0-4.3); Hematocrit 44.6 % (35.5-45.6); Lymphocytes # (Auto) 2.9 K/mm3 (1.2-5.4); Lymphocytes % (Auto) 27.9 % (13.4-35.0); Mean Corpuscular HGB Conc 34 % (32-34); Mean Corpuscular Volume 94 fl (84-94); Monocytes # (Auto) 0.6 K/mm3 (0.0-0.8); Monocytes % (Auto) 5.7 % (0.0-7.3); Platelet Count 208 K/mm3 (140-440); Red Blood Count 4.75 M/mm3 (3.65-5.03); Red Cell Distribution Width 13.9 % (13.2-15.2)
[2020-08-19 07:37] LABS: BUN/Creatinine Ratio 15; Blood Urea Nitrogen 20 mg/dL (9-20); Calcium 8.7 mg/dL (8.4-10.2); Hemolysis Index 2
--- NOTE | 2020-08-19 08:28 | XRay Report ---
CHEST 1 VIEW INDICATION: Chest Pain. COMPARISON: 03/28/2020 FINDINGS: Support devices: None. Heart: Stable moderate cardiomegaly. Lungs/Pleura: Mild pulmonary venous congestion has developed. The lungs are clear otherwise. No pleur al effusion or pneumothorax. Additional findings: None. IMPRESSION: Cardiomegaly and pulmonary venous congestion. Signer Name: Obed Lucero Jr, MD Signed: 08/19/2020 8:23 AM Workstation Name: [id number]
[2020-08-19] MEDS ORDERED: POTASSIUM CHLORIDE ER 20 MEQ TAB PO ONE (08:50)
[2020-08-19] MEDS ORDERED: FUROSEMIDE 40 MG/4 ML INJ IV ONE (08:50)
--- NOTE | 2020-08-19 08:53 | Emergency Department Report ---
ED Shortness of Breath HPI - General Chief Complaint: Dyspnea/Respdistress Stated Complaint: DIFF BREATHING Time Seen by Provider: 08/19/20 08:43 Source: patient Mode of arrival: Ambulatory Limitations: No Limitations - History of Present Illness Initial Comments: This is a very pleasant 39-year-old male who presents the emergency department chief complaint shortness of breath, orthopnea and cough on and off for the past 6 months. Patient has past medical history of congestive heart failure, diabetes, hypertension and obstructive sleep apnea. He has been hospitalized in the last year and had a cardiac catheterization which he reports shows no bl ockages. He denies any chest pain, hemoptysis, fever, chills, night sweats, dizziness, blurry vision, weakness or any other associated symptoms. He does report he has had a difficulty time seeing cardiology outpatient due to lack of insurance. - Related Data Previous Rx's Medication Instructions Recorded Last Taken Type Aspirin EC [Ecotrin] 325 mg PO NOW #30 tablet 07/02/19 Unknown Rx Folic Acid [Folvite] 1 mg PO QDAY #30 tablet 07/02/19 Unknown Rx Metoprolol [Lopressor TAB] 25 mg PO BID #60 tablet 07/02/19 Unknown Rx Multivitamin Tab [Multiple Vitamin 1 each PO QDAY #30 tablet 07/02/19 Unknown Rx TAB (Theragran)] Spironolactone [Aldactone] 25 mg PO QDAY #30 tablet 07/02/19 Unknown Rx Thiamine [Vitamin B-1] 100 mg PO QDAY #30 tablet 07/02/19 Unknown Rx amLODIPine 10 mg PO DAILY 30 Days #30 tab 07/02/19 Unknown Rx lisinopriL [Zestril TAB] 20 mg PO QDAY #30 tablet 07/02/19 Unknown Rx Losartan [Cozaar] 100 mg PO QDAY #30 tablet 10/06/19 Unknown Rx Losartan/Hydrochlorothiazide 1 each PO DAILY #30 tablet 10/06/19 Unknown Rx [Losartan-Hctz 100-25 mg Tab] carvediloL [Coreg] 6.25 mg PO BID #60 tablet 10/06/19 Unknown Rx hydroCHLOROthiazide [HCTZ] 25 mg PO QDAY #30 tablet 10/06/19 Unknown Rx metFORMIN [Glucophage] 500 mg PO BID #60 tablet 10/06/19 Unknown Rx Naproxen [EC-Naprosyn] 500 mg PO BID PRN #14 tablet. 01/12/20 Unknown Rx Furosemide [Lasix TAB] 40 mg PO QDAY #30 tablet 01/31/20 Unknown Rx glipiZIDE [Glucotrol] 5 mg PO BID #60 tablet 03/28/20 Unknown Rx metFORMIN [Glucophage] 850 mg PO BID #60 tablet 03/28/20 Unknown Rx Allergies Allergy/AdvReac Type Severity Reaction Status Date / Time No Known Allergies Allergy Verified 07/14/17 10:18 ED Review of Systems ROS: Stated complaint: DIFF BREATHING Other details as noted in HPI Comment: All other systems reviewed and negative Constitutional: denies: chills, fever Eyes: denies: eye pain, eye discharge, vision change ENT: denies: ear pain, throat pain Respiratory: see HPI, orthopnea, shortness of breath. denies: wheezing Cardiovascular: denies: chest pain, palpitations Endocrine: no symptoms reported Gastrointestinal: denies: abdominal pain, nausea, diarrhea Genitourinary: denies: urgency, dysuria Musculoskeletal: denies: back pain, joint swelling, arthralgia Skin: denies: rash, lesions Neurological: denies: headache, weakness, paresthesias Psychiatric: denies: anxiety, depression Hematological/Lymphatic: denies: easy bleeding, easy bruising ED Past Medical Hx - Past Medical History Previous Medical History?: Yes Hx Hypertension: Yes Hx Congestive Heart Failure: Yes Hx Diabetes: Yes Additional medical history: SLEEP APNEA - Surgical History Past Surgical History?: Yes Additional Surgical History: cardiac stents - Social History Smoking Status: Former Smoker Substance Use Type: None - Medications Home Medications: Home Medications Medication Instructions Recorded Confirmed Last Taken Type Aspirin EC [Ecotrin] 325 mg PO NOW #30 tablet 07/02/19 Unknown Rx Folic Acid [Folvite] 1 mg PO QDAY #30 tablet 07/02/19 Unknown Rx Metoprolol [Lopressor TAB] 25 mg PO BID #60 tablet 07/02/19 Unknown Rx Multivitamin Tab [Multiple Vitamin 1 each PO QDAY #30 tablet 07/02/19 Unknown Rx TAB (Theragran)] Spironolactone [Aldactone] 25 mg PO QDAY #30 tablet 07/02/19 Unknown Rx Thiamine [Vitamin B-1] 100 mg PO QDAY #30 tablet 07/02/19 Unknown Rx amLODIPine 10 mg PO DAILY 30 Days #30 tab 07/02/19 Unknown Rx lisinopriL [Zestril TAB] 20 mg PO QDAY #30 tablet 07/02/19 Unknown Rx Losartan [Cozaar] 100 mg PO QDAY #30 tablet 10/06/19 Unknown Rx Losartan/Hydrochlorothiazide 1 each PO DAILY #30 tablet 10/06/19 Unknown Rx [Losartan-Hctz 100-25 mg Tab] carvediloL [Coreg] 6.25 mg PO BID #60 tablet 10/06/19 Unknown Rx hydroCHLOROthiazide [HCTZ] 25 mg PO QDAY #30 tablet 10/06/19 Unknown Rx metFORMIN [Glucophage] 500 mg PO BID #60 tablet 10/06/19 Unknown Rx Naproxen [EC-Naprosyn] 500 mg PO BID PRN #14 tablet.dr 01/12/20 Unknown Rx Furosemide [Lasix TAB] 40 mg PO QDAY #30 tablet 01/31/20 Unknown Rx glipiZIDE [Glucotrol] 5 mg PO BID #60 tablet 03/28/20 Unknown Rx metFORMIN [Glucophage] 850 mg PO BID #60 tablet 03/28/20 Unknown Rx ED Physical Exam - General Limitations: No Limitations General appearance: alert, in no apparent distress - Head Head exam: Present: atraumatic, normocephalic - Eye Eye exam: Present: normal appearance, PERRL, EOMI Pupils: Present: normal accommodation - ENT ENT exam: Present: normal exam, normal orophraynx, mucous membranes moist - Neck Neck exam: Present: normal inspection, full ROM. Absent: tenderness, meningismus - Respiratory Respiratory exam: Present: wheezes (Mild expiratory wheezes to lung bases, no increased work of breathing,). Absent: normal lung sounds bilaterally, respiratory distress, rales, rhonchi, stridor, accessory muscle use - Cardiovascular Cardiovascular Exam: Present: regular rate, normal rhythm. Absent: systolic murmur, diastolic murmur, rubs, gallop - GI/Abdominal GI/Abdominal exam: Present: soft, normal bowel sounds. Absent: distended, tenderness, guarding, rebound, rigid - Rectal Rectal exam: Present: deferred - Extremities Exam Extremities exam: Present: normal inspection, full ROM, normal capillary refill. Absent: tenderness, pedal edema, calf tenderness (No lower extreme edema, no pitting edema, negative Homans' sign bilaterally.) - Back Exam Back exam: Present: normal inspection, full ROM. Absent: tenderness, CVA tenderness (R), CVA tenderness (L) - Neurological Exam Neurological exam: Present: alert, oriented X3, normal gait - Psychiatric Psychiatric exam: Present: normal affect, normal mood - Skin Skin exam: Present: warm, dry, intact, normal color. Absent: rash ED Course Vital Signs 08/19/20 06:27 Temperature 97.3 F L Pulse Rate 78 Respiratory 17 Rate Blood Pressure 113/81 O2 Sat by Pulse 95 Oximetry - Reevaluation(s) Reevaluation #1: 08/19/20 08:55 Patient nontoxic in no acute distress. Vitals are stable. Patient does not clinically appear to be significantly fluid overloaded however chest x-ray did show mild pulmonary vascular congestion. His proBNP was slightly elevated. Patient does report he has been compliant with his medications. I did review his chart and on 07/01/2019 he had a cardiac cath and echo. Cardiac cath showed no significant obstructive coronary artery disease but his ejection fraction on the cath and echo was severely depressed between 15 and 20%. The patient does report normal urinary output. The remainder of his labs relatively normal. I will repeat a troponin at 2 hours if normal I think the patient is stable to go home. His EKG today shows no change from 03/28/2020. The patient will be given 40 mg of IV Lasix with 40 mg of potassium and outpatient cardiology follow-up. He was very agreeable to this plan and all of his questions were answered. Reevaluation #2: 08/19/20 14:38 Patient had urinated multiple times a large amount of output. He felt much better and wanted to go home. His vital signs have remained stable. He does have his home medications. 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 He was instructed to return the [facility] department he develops any change or worsening symptoms. He verbalized understanding of the diagnosis, treatment plan and follow-up instructions and all of his questions were answered. ED Medical Decision Making - Lab Data Result diagrams: 08/19/20 06:57 08/19/20 06:57 Lab Results 08/19/20 08/19/20 08/19/20 Range/Units 06:57 06:57 10:00 WBC 10.4 (4.5-11.0) K/mm3 RBC 4.75 (3.65-5.03) M/mm3 Hgb 15.0 (11.8-15.2) gm/dl Hct 44.6 (35.5-45.6) % MCV 94 (84-94) fl MCH 32 (28-32) pg MCHC 34 (32-34) % RDW 13.9 (13.2-15.2) % Plt Count 208 (140-440) K/mm3 Lymph % (Auto) 27.9 (13.4-35.0) % [place] % (Auto) 5.7 (0.0-7.3) % Eos % (Auto) 1.1 (0.0-4.3) % Baso % (Auto) 0.6 (0.0-1.8) % Lymph # (Auto) 2.9 (1.2-5.4) K/mm3 [place] # (Auto) 0.6 (0.0-0.8) K/mm3 Eos # (Auto) 0.1 (0.0-0.4) K/mm3 Baso # (Auto) 0.1 (0.0-0.1) K/mm3 Seg Neutrophils % 64.7 (40.0-70.0) % Seg Neutrophils # 6.7 (1.8-7.7) K/mm3 Sodium 144 (137-145) mmol/L Potassium 4.2 (3.6-5.0) mmol/L Chloride 105.3 (98-107) mmol/L Carbon Dioxide 24 (22-30) mmol/L Anion Gap 19 mmol/L BUN 20 (9-20) mg/dL Creatinine 1.3 (0.8-1.3) mg/dL Estimated GFR > 60 ml/min BUN/Creatinine Ratio 15 % Glucose 119 H (75-100) mg/dL Calcium 8.7 (8.4-10.2) mg/dL Troponin T < 0.010 < 0.010 (0.00-0.029) ng/mL NT-Pro-B Natriuret Pep 2840 H (0-450) pg/mL - EKG Data -: EKG Interpreted by Vt EKG shows normal: sinus rhythm Rate: normal - EKG Data When compared to previous EKG there are: no significant change Interpretation: no acute changes 08/19/20 08:57 Sinus rhythm with ventricular rate of 90 bpm, left bundle branch block, no STEMI. No change when compared to 03/28/2020 - Radiology Data Radiology results: report reviewed No acute findings, cardiomegaly with mild pulmonary vascular congestion. Critical care attestation.: If time is entered above; I have spent that time in minutes in the direct care of this critically ill patient, excluding procedure time. ED Disposition Clinical Impression: Acute heart failure Qualifiers: Heart failure type: unspecified Qualified Code(s): I50.9 - Heart failure, unspecified Disposition: DC-01 TO HOME OR SELFCARE Is pt being admited?: No Condition: Stable Referrals: PRIMARY CARE, [Primary Care Provider] - 3-5 Days Time of Disposition: 14:39
== END 2020-08-19 14:08 | disposition home or self-care (01) ==
LOC: ED 06:14
DX: I11.0 Hypertensive heart disease with heart failure (principal); I50.9 Heart failure, unspecified; E11.9 Type 2 diabetes mellitus without complications; Z87.891 Personal history of nicotine dependence; Z79.82 Long term (current) use of aspirin; Z79.899 Other long term (current) drug therapy
CPT/HCPCS: 36415; 71045; 80048; 83880; 84484; 85025; 93005; 96374; 99284; J1940

== ENCOUNTER 2020-11-13 10:45 | Emergency (ER) | payer SELFPAY ==
--- NOTE | 2020-11-13 10:52 | Event Note ---
ED Screening Note Date of service: 11/13/20 Time: 10:52 ED Screening Note: 39-year-old -[place] male presents to the emergency room for shortness of breath. Patient states lying down makes it worse and he has to sleep on a few pillows. Patient reports a history of congestive heart failure. This initial assessment/diagnostic orders/clinical plan/treatment(s) is/are subject to change based on patients health status, clinical progression and re- assessment by fellow clinical providers in the ED. Further treatment and workup at subsequent clinical providers discretion. Patient/guardian urged not to elope from the ED as their condition may be serious if not clinically assessed and managed. Initial orders include:
[2020-11-13 10:54] VITALS: BP 108/78
[2020-11-13 11:33] LABS: Basophils % (Auto) 0.4 % (0.0-1.8); Eosinophils # (Auto) 0.1 K/mm3 (0.0-0.4); Eosinophils % (Auto) 1.1 % (0.0-4.3); Hematocrit 40.8 % (35.5-45.6); Hemoglobin 13.7 gm/dl (11.8-15.2); Lymphocytes # (Auto) 2.2 K/mm3 (1.2-5.4); Lymphocytes % (Auto) 23.7 % (13.4-35.0); Mean Corpuscular HGB Conc 34 % (32-34); Mean Corpuscular Volume 94 fl (84-94); Monocytes # (Auto) 0.6 K/mm3 (0.0-0.8); Monocytes % (Auto) 6.5 % (0.0-7.3); Platelet Count 207 K/mm3 (140-440); Red Blood Count 4.32 M/mm3 (3.65-5.03); Red Cell Distribution Width 14.3 % (13.2-15.2)
--- NOTE | 2020-11-13 11:44 | XRay Report ---
CHEST PA AND LATERAL VIEWS INDICATION: Shortness of breath worse with lying down hx/o chf. COMPARISON: 08/19/2020 FINDINGS: Support devices: None Heart: Moderately enlarged but stable Lungs/Pleura: Mild, diffuse pulmonary edema, not significantly changed since July. IMPRESSION: 1. Findings suggest mild congestive failure, unchanged in 3 months. Signer Name: Andres Negrete MD Signed: 11/13/2020 11:40 AM Workstation Name: [id number]
[2020-11-13 11:55] LABS: Alanine Aminotransferase 31 units/L (7-56); Albumin 3.4 g/dL (3.9-5); BUN/Creatinine Ratio 16; Blood Urea Nitrogen 21 mg/dL (9-20); Calcium 8.6 mg/dL (8.4-10.2); Hemolysis Index 8
[2020-11-13] MEDS ORDERED: FUROSEMIDE 40 MG/4 ML INJ IV ONE (20:03)
--- NOTE | 2020-11-13 20:12 | Emergency Department Report ---
HPI - General Chief Complaint: Dyspnea/Respdistress Time Seen by Provider: 11/13/20 10:50 - HPI HPI: Room 37 The patient is a 39-year-old male present with a chief complaint of shortness of breath. The patient states he has a history of CHF and for the past several months has suffered from shortness of breath and dyspnea on exertion. Upon questioning the patient states he has been intermittently compliant with his Lasix. Patient states he believes he has been out of it for the past 3 days. ED Past Medical Hx - Past Medical History Previous Medical History?: Yes Hx Hypertension: Yes Hx Congestive Heart Failure: Yes Hx Diabetes: Yes Additional medical history: SLEEP APNEA - Surgical History Past Surgical History?: Yes Additional Surgical History: cardiac stents - Family History Family history: no significant - Social History Smoking Status: Never Smoker Substance Use Type: None - Medications Home Medications: Home Medications Medication Instructions Recorded Confirmed Last Taken Type Aspirin EC [Ecotrin] 325 mg PO NOW #30 tablet 07/02/19 Unknown Rx Folic Acid [Folvite] 1 mg PO QDAY #30 tablet 07/02/19 Unknown Rx Metoprolol [Lopressor TAB] 25 mg PO BID #60 tablet 07/02/19 Unknown Rx Multivitamin Tab [Multiple Vitamin 1 each PO QDAY #30 tablet 07/02/19 Unknown Rx TAB (Theragran)] Spironolactone [Aldactone] 25 mg PO QDAY #30 tablet 07/02/19 Unknown Rx Thiamine [Vitamin B-1] 100 mg PO QDAY #30 tablet 07/02/19 Unknown Rx amLODIPine 10 mg PO DAILY 30 Days #30 tab 07/02/19 Unknown Rx lisinopriL [Zestril TAB] 20 mg PO QDAY #30 tablet 07/02/19 Unknown Rx Losartan [Cozaar] 100 mg PO QDAY #30 tablet 10/06/19 Unknown Rx Losartan/Hydrochlorothiazide 1 each PO DAILY #30 tablet 10/06/19 Unknown Rx [Losartan-Hctz 100-25 mg Tab] carvediloL [Coreg] 6.25 mg PO BID #60 tablet 10/06/19 Unknown Rx hydroCHLOROthiazide [HCTZ] 25 mg PO QDAY #30 tablet 10/06/19 Unknown Rx metFORMIN [Glucophage] 500 mg PO BID #60 tablet 10/06/19 Unknown Rx Naproxen [EC-Naprosyn] 500 mg PO BID PRN #14 tablet. 01/12/20 Unknown Rx Furosemide [Lasix TAB] 40 mg PO QDAY #30 tablet 01/31/20 Unknown Rx glipiZIDE [Glucotrol] 5 mg PO BID #60 tablet 03/28/20 Unknown Rx metFORMIN [Glucophage] 850 mg PO BID #60 tablet 03/28/20 Unknown Rx Furosemide [Lasix TAB] 40 mg PO QDAY #30 tablet 11/13/20 Unknown Rx ED Review of Systems ROS: Stated complaint: SOB/PAIN ON RT SIDE Other details as noted in HPI Constitutional: no symptoms reported Eyes: denies: eye pain ENT: denies: throat pain Respiratory: shortness of breath, SOB with exertion Cardiovascular: denies: chest pain Endocrine: no symptoms reported Gastrointestinal: denies: abdominal pain Genitourinary: denies: dysuria Musculoskeletal: denies: back pain Neurological: denies: headache Physical Exam - Physical Exam Vital Signs: Vital Signs 11/13/20 10:48 Temperature 97.5 F L Pulse Rate 104 H Respiratory 22 Rate Blood Pressure 108/78 O2 Sat by Pulse 99 Oximetry Physical Exam: GENERAL: The patient is well-developed well-nourished male sitting on stretcher not appearing to be in acute distress. [] HEENT: Normocephalic. Atraumatic. Extraocular motions are intact. Patient has moist mucous membranes. NECK: Supple. Trachea midline CHEST/LUNGS: Faint occasional crackle left base. There is no respiratory distress noted. HEART/CARDIOVASCULAR: Regular. There is no tachycardia. There is no gallop rub or murmur. ABDOMEN: Abdomen is soft, nontender. Patient has normal bowel sounds. There is no abdominal distention. SKIN: There is no rash. There is trace to 1+ bilateral lower extremity pitting edema. There is no diaphoresis. NEURO: The patient is awake, alert, and oriented. The patient is cooperative. The patient has normal speech and gait. MUSCULOSKELETAL: There is no evidence of acute injury. ED Course Vital Signs 11/13/20 10:48 Temperature 97.5 F L Pulse Rate 104 H Respiratory 22 Rate Blood Pressure 108/78 O2 Sat by Pulse 99 Oximetry - Reevaluation(s) Reevaluation #1: 11/13/20 21:27 Patient states he feels improved after diuresis and is ready to go home ED Medical Decision Making - Lab Data Result diagrams: 11/13/20 11:20 11/13/20 11:20 Laboratory Tests 11/13/20 11/13/20 11/13/20 11:20 11:20 11:20 WBC 9.4 RBC 4.32 Hgb 13.7 Hct 40.8 MCV 94 MCH 32 MCHC 34 RDW 14.3 Plt Count 207 Lymph % (Auto) 23.7 [place] % (Auto) 6.5 Eos % (Auto) 1.1 Baso % (Auto) 0.4 Lymph # (Auto) 2.2 [place] # (Auto) 0.6 Eos # (Auto) 0.1 Baso # (Auto) 0.0 Seg Neutrophils % 68.3 Seg Neutrophils # 6.4 Sodium 140 Potassium 4.2 Chloride 107.2 H Carbon Dioxide 24 Anion Gap 13 BUN 21 H Creatinine 1.3 Estimated GFR > 60 BUN/Creatinine Ratio 16 Glucose 109 H Calcium 8.6 Total Bilirubin 0.40 AST 26 ALT 31 Alkaline Phosphatase 51 NT-Pro-B Natriuret Pep 3396 H Total Protein 6.1 L Albumin 3.4 L Albumin/Globulin Ratio 1.3 Lipase 36 - EKG Data -: EKG Interpreted by Me EKG shows normal: sinus rhythm Rate: tachycardia (104 bpm) - EKG Data When compared to previous EKG there are: previous EKG unavailable Interpretation: nonspecific ST-T wave shahzad (T wave inversion lead aVL) - Radiology Data Radiology results: report reviewed (Chest x-ray), image reviewed (Chest x-ray) interpreted by me: Chest [id number], mild CHF. No pneumothorax [facility] [address] [place] [address] XRay Report Signed Patient: SHARLA MAST MR#: [id number] : 1980 Acct:[id number] Age/Sex: 39 / M ADM Date: 11/13/20 Loc: ED Attending Dr: Ordering Physician: KATEY VÁSQUEZ Date of Service: 11/13/20 Procedure(s): XR chest routine 2V Accession Number(s): [id number] cc: KATEY VÁSQUEZ Fluoro Time In Minutes: CHEST PA AND LATERAL VIEWS INDICATION: Shortness of breath worse with lying down hx/o chf. COMPARISON: 08/19/2020 FINDINGS: Support devices: None Heart: Moderately enlarged but stable Lungs/Pleura: Mild, diffuse pulmonary edema, not significantly changed since July. IMPRESSION: 1. Findings suggest mild congestive failure, unchanged in 3 months. Signer Name: Andres Negrete MD Signed: 11/13/2020 11:40 AM Workstation Name: [id number] Transcribed By: TM Dictated By: Andres Negrete MD Electronically Authenticated By: Andres Negrete MD Signed Date/Time: 11/13/20 1140 DD/ 1138 TD/TT: - Differential Diagnosis CHF exacerbation, pneumonia, Critical care attestation.: If time is entered above; I have spent that time in minutes in the direct care of this critically ill patient, excluding procedure time. ED Disposition Clinical Impression: CHF exacerbation Disposition: DC- TO HOME OR SELFCARE Is pt being admited?: No Does the pt Need Aspirin: No Condition: Stable Additional Instructions: Return to the emergency department should you develop worsening symptoms, inability to tolerate food or liquids, high fever or any other concerns Prescriptions: Furosemide [Lasix TAB] 40 mg PO QDAY #30 tablet Referrals: TESSA HU MD [Primary Care Provider] - 3-5 Days RONY HENDRICKSON MD [Staff Physician] - 3-5 Days Time of Disposition: 21:29
== END 2020-11-13 21:45 | disposition home or self-care (01) ==
LOC: ED 10:45
DX: I50.9 Heart failure, unspecified (principal); Z79.899 Other long term (current) drug therapy
CPT/HCPCS: 36415; 71046; 80053; 83690; 83880; 85025; 96374; 99284; J1940; 93005

== ENCOUNTER 2020-12-14 19:40 | Inpatient (IN) | payer SELFPAY ==
[2020-12-14] MEDS ORDERED: ASPIRIN 81 MG TAB CHEW PO ONE (20:08)
[2020-12-14] MEDS ORDERED: FUROSEMIDE 40 MG/4 ML INJ IV ONE ×2 (20:09→21:26)
--- NOTE | 2020-12-14 20:15 | Event Note ---
ED Screening Note Date of service: 12/14/20 Time: 20:00 ED Screening Note: Patient is a 40 yo AA male with a h/o CHF, HTN, NIDDM, DIANN who presents to the ED with c/o acute exacerbation of chronic dyspnea, chest pain and orthopnea for the last 2 weeks, worse in the last 2 days. Patient denies dizziness, cough, fever, chills, nausea, vomiting, abdominal pain, diarrhea, sore throat, hemoptysis and headache, syncope or palpitations. This initial assessment/diagnostic orders/clinical plan/treatment(s) is/are subject to change based on patients health status, clinical progression and re- assessment by fellow clinical providers in the ED. Further treatment and workup at subsequent clinical providers discretion. Patient/guardian urged not to elope from the ED as their condition may be serious if not clinically assessed and managed. Initial orders include: CBC, CMP, BNP, CXR, EKG, Troponin
[2020-12-14 20:34] LABS: Basophils % (Auto) 0.5 % (0.0-1.8); Eosinophils % (Auto) 0.3 % (0.0-4.3); Hematocrit 46.4 % (35.5-45.6); Hemoglobin 15.3 gm/dl (11.8-15.2); Lymphocytes % (Auto) 21.6 % (13.4-35.0); Mean Corpuscular HGB Conc 33 % (32-34); Mean Corpuscular Volume 97 fl (84-94); Monocytes # (Auto) 0.6 K/mm3 (0.0-0.8); Monocytes % (Auto) 5.9 % (0.0-7.3); Platelet Count 152 K/mm3 (140-440); Red Blood Count 4.78 M/mm3 (3.65-5.03); Red Cell Distribution Width 15.1 % (13.2-15.2)
[2020-12-14 20:56] LABS: Albumin 3.4 g/dL (3.9-5); Calcium 8.5 mg/dL (8.4-10.2)
--- NOTE | 2020-12-14 21:01 | XRay Report ---
CHEST 2 VIEWS INDICATION / CLINICAL INFORMATION: dyspnea. COMPARISON: 11/13/2020. FINDINGS: SUPPORT DEVICES: None. HEART / MEDIASTINUM: Stable cardiomegaly. LUNGS / PLEURA: Mild bilateral interstitial prominence suggestive of pulmonary edema. No pneumothorax . ADDITIONAL FINDINGS: No significant additional findings. IMPRESSION: 1. Features compatible with mild congestive failure. Signer Name: Arun Rock MD Signed: 12/14/2020 8:56 PM Workstation Name: [id number]
--- NOTE | 2020-12-14 21:32 | Emergency Department Report ---
ED Shortness of Breath HPI - General Chief Complaint: Dyspnea/Respdistress Stated Complaint: JUDSON/CHEST PAIN/SWOLLEN LEGS/FEET Time Seen by Provider: 12/14/20 21:14 Source: patient Mode of arrival: Ambulatory Limitations: No Limitations - History of Present Illness Initial Comments: Patient is 40 years old male with history of congestive heart failure, diabetes and hypertension. Patient presented to the ER complaining of difficulty breathing and significant orthopnea. Patient stated that symptoms started 3 to 4 days ago. Patient stated that he became very short of breath when even walk for short distance. Patient also complaining of chest pain described as tightness in similar to when he has fluids overload per his report. Patient denied any fever or chills. Patient also complaining of bilateral lower extremity swelling. Patient is currently taking furosemide 40 mg daily and stated that he is compliant with his medication but he claimed that he did not have any information about cardiac diet. MD Complaint: shortness of breath, chest pain -: days(s) Severity: moderate Worsens With: lying flat Known History Of: congestive heart failure - Related Data Previous Rx's Medication Instructions Recorded Last Taken Type Aspirin EC [Ecotrin] 325 mg PO NOW #30 tablet 07/02/19 Unknown Rx Folic Acid [Folvite] 1 mg PO QDAY #30 tablet 07/02/19 Unknown Rx Metoprolol [Lopressor TAB] 25 mg PO BID #60 tablet 07/02/19 Unknown Rx Multivitamin Tab [Multiple Vitamin 1 each PO QDAY #30 tablet 07/02/19 Unknown Rx TAB (Theragran)] Spironolactone [Aldactone] 25 mg PO QDAY #30 tablet 07/02/19 Unknown Rx Thiamine [Vitamin B-1] 100 mg PO QDAY #30 tablet 07/02/19 Unknown Rx amLODIPine 10 mg PO DAILY 30 Days #30 tab 07/02/19 Unknown Rx lisinopriL [Zestril TAB] 20 mg PO QDAY #30 tablet 07/02/19 Unknown Rx Losartan [Cozaar] 100 mg PO QDAY #30 tablet 10/06/19 Unknown Rx Losartan/Hydrochlorothiazide 1 each PO DAILY #30 tablet 10/06/19 Unknown Rx [Losartan-Hctz 100-25 mg Tab] carvediloL [Coreg] 6.25 mg PO BID #60 tablet 10/06/19 Unknown Rx hydroCHLOROthiazide [HCTZ] 25 mg PO QDAY #30 tablet 10/06/19 Unknown Rx metFORMIN [Glucophage] 500 mg PO BID #60 tablet 10/06/19 Unknown Rx Naproxen [EC-Naprosyn] 500 mg PO BID PRN #14 tablet. 01/12/20 Unknown Rx Furosemide [Lasix TAB] 40 mg PO QDAY #30 tablet 01/31/20 Unknown Rx glipiZIDE [Glucotrol] 5 mg PO BID #60 tablet 03/28/20 Unknown Rx metFORMIN [Glucophage] 850 mg PO BID #60 tablet 03/28/20 Unknown Rx Furosemide [Lasix TAB] 40 mg PO QDAY #30 tablet 11/13/20 Unknown Rx Allergies Allergy/AdvReac Type Severity Reaction Status Date / Time No Known Allergies Allergy Verified 07/14/17 10:18 ED Review of Systems ROS: Stated complaint: JUDSON/CHEST PAIN/SWOLLEN LEGS/FEET Other details as noted in HPI Comment: All other systems reviewed and negative Respiratory: cough, orthopnea, shortness of breath, SOB with exertion, SOB at rest. denies: wheezing Cardiovascular: chest pain, dyspnea on exertion, orthopnea, paroxysmal nocturnal dyspnea. denies: palpitations Gastrointestinal: denies: abdominal pain, nausea, vomiting, diarrhea, constipation, melena, hematochezia Musculoskeletal: denies: back pain Neurological: denies: headache, weakness, numbness, paresthesias, confusion ED Past Medical Hx - Past Medical History Previous Medical History?: Yes Hx Hypertension: Yes Hx Congestive Heart Failure: Yes Hx Diabetes: Yes Additional medical history: SLEEP APNEA. high cholestrol - Surgical History Past Surgical History?: Yes Additional Surgical History: cardiac stents - Social History Smoking Status: Never Smoker Substance Use Type: None - Medications Home Medications: Home Medications Medication Instructions Recorded Confirmed Last Taken Type Aspirin EC [Ecotrin] 325 mg PO NOW #30 tablet 07/02/19 Unknown Rx Folic Acid [Folvite] 1 mg PO QDAY #30 tablet 07/02/19 Unknown Rx Metoprolol [Lopressor TAB] 25 mg PO BID #60 tablet 07/02/19 Unknown Rx Multivitamin Tab [Multiple Vitamin 1 each PO QDAY #30 tablet 07/02/19 Unknown Rx TAB (Theragran)] Spironolactone [Aldactone] 25 mg PO QDAY #30 tablet 07/02/19 Unknown Rx Thiamine [Vitamin B-1] 100 mg PO QDAY #30 tablet 07/02/19 Unknown Rx amLODIPine 10 mg PO DAILY 30 Days #30 tab 07/02/19 Unknown Rx lisinopriL [Zestril TAB] 20 mg PO QDAY #30 tablet 07/02/19 Unknown Rx Losartan [Cozaar] 100 mg PO QDAY #30 tablet 10/06/19 Unknown Rx Losartan/Hydrochlorothiazide 1 each PO DAILY #30 tablet 10/06/19 Unknown Rx [Losartan-Hctz 100-25 mg Tab] carvediloL [Coreg] 6.25 mg PO BID #60 tablet 10/06/19 Unknown Rx hydroCHLOROthiazide [HCTZ] 25 mg PO QDAY #30 tablet 10/06/19 Unknown Rx metFORMIN [Glucophage] 500 mg PO BID #60 tablet 10/06/19 Unknown Rx Naproxen [EC-Naprosyn] 500 mg PO BID PRN #14 tablet. 01/12/20 Unknown Rx Furosemide [Lasix TAB] 40 mg PO QDAY #30 tablet 01/31/20 Unknown Rx glipiZIDE [Glucotrol] 5 mg PO BID #60 tablet 03/28/20 Unknown Rx metFORMIN [Glucophage] 850 mg PO BID #60 tablet 03/28/20 Unknown Rx Furosemide [Lasix TAB] 40 mg PO QDAY #30 tablet 11/13/20 Unknown Rx ED Physical Exam - General Limitations: No Limitations General appearance: alert, in distress - Head Head exam: Present: atraumatic, normocephalic, normal inspection - Eye Eye exam: Present: normal appearance - ENT ENT exam: Present: normal exam, normal orophraynx, mucous membranes moist - Neck Neck exam: Present: normal inspection, full ROM. Absent: tenderness, meningismus - Respiratory Respiratory exam: Present: respiratory distress, rales, decreased breath sounds. Absent: wheezes, rhonchi - Cardiovascular Cardiovascular Exam: Present: regular rate, normal rhythm, normal heart sounds - GI/Abdominal GI/Abdominal exam: Present: soft, normal bowel sounds. Absent: distended, tenderness, guarding, rebound, rigid, organomegaly, mass, bruit, pulsatile mass, hernia - Extremities Exam Extremities exam: Present: normal capillary refill, pedal edema - Back Exam Back exam: Present: normal inspection, full ROM. Absent: CVA tenderness (R), CVA tenderness (L) - Neurological Exam Neurological exam: Present: alert, oriented X3, CN II-XII intact - Psychiatric Psychiatric exam: Present: normal mood - Skin Skin exam: Present: warm, intact, normal color ED Course Vital Signs 12/14/20 12/14/20 12/14/20 20:09 20:12 21:02 Temperature 97.5 F L 97.7 F Pulse Rate 99 H 103 H Respiratory 16 21 Rate Blood Pressure 117/81 Blood Pressure 117/86 [Left] O2 Sat by Pulse 97 98 Oximetry ED Medical Decision Making - Lab Data Result diagrams: 12/14/20 20:20 12/14/20 20:20 - EKG Data -: EKG Interpreted by Me EKG shows normal: sinus rhythm - EKG Data 12/14/20 21:35 EKG showed left bundle branch block however when I reviewed patient previous record he had multiple EKGs showing a left bundle branch block before. - Radiology Data Radiology results: report reviewed - Medical Decision Making Patient is 40 years old male with history of congestive heart failure, diabetes and hypertension. Patient presented to the ER complaining of difficulty breathing and significant orthopnea. Patient stated that symptoms started 3 to 4 days ago. Patient stated that he became very short of breath when even walk for short distance. Patient also complaining of chest pain described as tightness in similar to when he has fluids overload per his report. Patient denied any fever or chills. Patient also complaining of bilateral lower extremity swelling. Patient is currently taking furosemide 40 mg daily and stated that he is compliant with his medication but he claimed that he did not have any information about cardiac diet. Patient vital signs stable with an oxygen saturation of 95% however patient clinically in a respiratory distress unable to lay flat. Chest x-ray showed pulmonary edema. BNP is more than 5000. Patient given Lasix 60 mg IV. I discussed the patient with Dr. Umanzor, he agreed to admit the patient to medical service for further management. Critical Care Time: Yes Critical care time in (mins) excluding proc time.: 30 Critical care attestation.: If time is entered above; I have spent that time in minutes in the direct care of this critically ill patient, excluding procedure time. ED Disposition Clinical Impression: Acute exacerbation of CHF (congestive heart failure) Disposition: OP ADMIT IP TO THIS HOSP Is pt being admited?: Yes Condition: Stable Referrals: PRIMARY CARE, [Primary Care Provider] - 3-5 Days
[2020-12-14] MEDS ORDERED: ACETAMINOPHEN 325 MG TAB PO PRN (23:15)
[2020-12-14] MEDS ORDERED: DEXTROSE 50% IN WATER (25GM) 50 ML SYRINGE IV PRN (23:17)
[2020-12-15 02:30] LABS: Creatine Kinase MB 4.2 ng/mL (0.0-4.0)
[2020-12-15] MEDS: HEPARIN 5,000 UNIT/1 ML VIAL SUB-Q SCH ×3 (03:18→22:31)
--- NOTE | 2020-12-15 04:29 | History and Physical Report ---
History of Present Illness Date of examination: 12/14/20 Date of admission: 12/14/20 22:07 Chief complaint: Shortness of breath and ankle edema History of present illness: History of presenting illness, patient is a 40-year-old male who said he has been having shortness of breath going on for about 2 to 3 days , patient said the symptom progressed to the level of dyspnea on exertion and there is an associated ankle edema. Patient also noticed chest tightness with deep breathing but denied history of fever or chills and denied history of nausea or vomiting. Past History Past Medical History: CAD, diabetes, heart failure, hypertension, hyperlipidemia, other (SLEEP APNEA) Past Surgical History: Other (CARDIAC STENT) Social history: no significant social history Family history: no significant family history Medications and Allergies Allergies Allergy/AdvReac Type Severity Reaction Status Date / Time No Known Allergies Allergy Verified 07/14/17 10:18 Home Medications Medication Instructions Recorded Confirmed Last Taken Type Aspirin EC [Ecotrin] 325 mg PO NOW #30 tablet 07/02/19 12/14/20 Unknown Rx Metoprolol [Lopressor TAB] 25 mg PO BID #60 tablet 07/02/19 12/14/20 Unknown Rx Multivitamin Tab [Multiple Vitamin 1 each PO QDAY #30 tablet 07/02/19 12/14/20 Unknown Rx TAB (Theragran)] Thiamine [Vitamin B-1] 100 mg PO QDAY #30 tablet 07/02/19 12/14/20 Unknown Rx amLODIPine 10 mg PO DAILY 30 Days #30 tab 07/02/19 12/14/20 Unknown Rx lisinopriL [Zestril TAB] 20 mg PO QDAY #30 tablet 07/02/19 12/14/20 Unknown Rx Losartan [Cozaar] 100 mg PO QDAY #30 tablet 10/06/19 12/14/20 Unknown Rx carvediloL [Coreg] 6.25 mg PO BID #60 tablet 10/06/19 12/14/20 Unknown Rx hydroCHLOROthiazide [HCTZ] 25 mg PO QDAY #30 tablet 10/06/19 12/14/20 Unknown Rx metFORMIN [Glucophage] 500 mg PO BID #60 tablet 10/06/19 12/14/20 Unknown Rx Furosemide [Lasix TAB] 40 mg PO QDAY #30 tablet 01/31/20 12/14/20 Unknown Rx glipiZIDE [Glucotrol] 5 mg PO BID #60 tablet 03/28/20 12/14/20 Unknown Rx metFORMIN [Glucophage] 850 mg PO BID #60 tablet 03/28/20 12/14/20 Unknown Rx Furosemide [Lasix TAB] 40 mg PO QDAY #30 tablet 11/13/20 12/14/20 Unknown Rx Active Meds: Active Medications Acetaminophen (Acetaminophen 325 Mg Tab) 650 mg PO Q4H PRN PRN Reason: Fever >101 Aspirin (Aspirin 325 Mg Tab) 325 mg PO QDAY IJEOMA Dextrose (Dextrose 50% In Water (25gm) 50 Ml Syringe) 0 ml IV Q30MIN PRN; Protocol PRN Reason: Hypoglycemia Furosemide (Furosemide 40 Mg/4 Ml Inj) 40 mg IV QDAY IJEOMA Heparin Sodium (Porcine) (Heparin 5,000 Unit/1 Ml Vial) 5,000 unit SUB-Q Q12HR [facility] Last Admin: 12/15/20 03:18 Dose: 5,000 unit Documented by: Insulin Human Regular (Insulin Regular, Human 100 Units/1 Ml) 0 units SUB-Q AC IJEOMA; Protocol Insulin Human Regular (Insulin Regular, Human 100 Units/1 Ml) 0 units SUB-Q QHS IJEOMA; Protocol Nitroglycerin (Nitroglycerin 2% Oint 1 Gm) 0.5 inch TP QIDNTG IJEOMA; Protocol Review of Systems Constitutional: no fever, no chills, no sweats, no weakness, no malaise Eyes: bilateral: other (NO BILATERAL EYE SYMPTOM) Ears, nose, mouth and throat: no ear pain Cardiovascular: chest pain, orthopnea, edema, shortness of breath, no palpitations, no syncope, no lightheadedness Respiratory: shortness of breath, dyspnea on exertion, no cough, no excessive s putum, no congestion, no wheezing, no pleurisy Gastrointestinal: no abdominal pain, no nausea, no vomiting, no diarrhea, no constipation Genitourinary Male: no dysuria, no hematuria Rectal: no pain Musculoskeletal: no neck stiffness, no neck pain Integumentary: no rash, no pruritis, no redness, no sores Neurological: no weakness, no numbness, no seizures, no syncope, no tremors, no ataxia, no vertigo, no headaches Psychiatric: no anxiety, no depression Endocrine: polyuria, nocturia, no excessive sweating Hematologic/Lymphatic: no easy bruising, no easy bleeding Exam - Constitutional Vitals: Temp Pulse Resp BP Pulse Ox 98.0 F 106 H 18 116/84 99 12/15/20 00:13 12/15/20 00:13 12/15/20 00:13 12/15/20 00:13 12/15/20 00:13 General appearance: Present: mild distress - EENT Eyes: Present: PERRL, EOM intact ENT: hearing intact, clear oral mucosa - Neck Neck: Present: supple, normal ROM - Respiratory Respiratory effort: labored Respiratory: bilateral: diminished - Cardiovascular Rhythm: regular Heart Sounds: Present: S1 & S2. Absent: gallop, systolic murmur, diastolic murmur - Extremities Extremities: no ischemia, Full ROM Extremity abnormal: edema Peripheral Pulses: within normal limits - Abdominal General gastrointestinal: Present: soft, non-tender, non-distended. Absent: tender, distended Male genitourinary: Present: deferred - Rectal Rectal Exam: deferred - Integumentary Integumentary: Present: clear, warm, dry. Absent: erythema, jaundice, rash - Musculoskeletal Musculoskeletal: generalized weakness - Psychiatric Psychiatric: appropriate mood/affect HEART Score - HEART Score Risk factors: 1-2 risk factors Troponin: Troponin T < 0.010 ng/mL (0.00-0.029) 12/15/20 01:11 Troponin: < normal limit - Critical Actions Critical Actions: 0-3 pts:0.9-1.7%risk of adverse cardiac event.Candidate for discharge Results - Labs CBC & Chem 7: 12/14/20 20:20 12/14/20 20:20 Labs: Laboratory Last Values WBC 9.4 K/mm3 (4.5-11.0) 12/14/20 20:20 RBC 4.78 M/mm3 (3.65-5.03) 12/14/20 20:20 Hgb 15.3 gm/dl (11.8-15.2) H 12/14/20 20:20 Hct 46.4 % (35.5-45.6) H 12/14/20 20:20 MCV 97 fl (84-94) H 12/14/20 20:20 MCH 32 pg (28-32) 12/14/20 20:20 MCHC 33 % (32-34) 12/14/20 20:20 RDW 15.1 % (13.2-15.2) 12/14/20 20:20 Plt Count 152 K/mm3 (140-440) 12/14/20 20:20 Lymph % (Auto) 21.6 % (13.4-35.0) 12/14/20 20:20 [place] % (Auto) 5.9 % (0.0-7.3) 12/14/20 20:20 Eos % (Auto) 0.3 % (0.0-4.3) 12/14/20 20:20 Baso % (Auto) 0.5 % (0.0-1.8) 12/14/20 20:20 Lymph # (Auto) 2.0 K/mm3 (1.2-5.4) 12/14/20 20:20 [place] # (Auto) 0.6 K/mm3 (0.0-0.8) 12/14/20 20:20 Eos # (Auto) 0.0 K/mm3 (0.0-0.4) 12/14/20 20:20 Baso # (Auto) 0.0 K/mm3 (0.0-0.1) 12/14/20 20:20 Seg Neutrophils % 71.7 % (40.0-70.0) H 12/14/20 20:20 Seg Neutrophils # 6.7 K/mm3 (1.8-7.7) 12/14/20 20:20 Sodium 134 mmol/L (137-145) L 12/14/20 20:20 Potassium 5.0 mmol/L (3.6-5.0) 12/14/20 20:20 Chloride 97.9 mmol/L (98-107) L 12/14/20 20:20 Carbon Dioxide 29 mmol/L (22-30) 12/14/20 20:20 Anion Gap 12 mmol/L 12/14/20 20:20 BUN 30 mg/dL (9-20) H 12/14/20 20:20 Creatinine 1.8 mg/dL (0.8-1.3) H 12/14/20 20:20 Estimated GFR 50 ml/min 12/14/20 20:20 BUN/Creatinine Ratio 17 % 12/14/20 20:20 Glucose 151 mg/dL (75-100) H 12/14/20 20:20 Calcium 8.5 mg/dL (8.4-10.2) 12/14/20 20:20 Total Bilirubin 1.50 mg/dL (0.1-1.2) H 12/14/20 20:20 AST 64 units/L (5-40) H 12/14/20 20:20 ALT 98 units/L (7-56) H 12/14/20 20:20 Alkaline Phosphatase 90 units/L (35-129) 12/14/20 20:20 Total Creatine Kinase 195 units/L (55-170) H 12/15/20 01:11 CK-MB (CK-2) 4.2 ng/mL (0.0-4.0) H 12/15/20 01:11 CK-MB (CK-2) Rel Index 2.1 (0-4) 12/15/20 01:11 Troponin T < 0.010 ng/mL (0.00-0.029) 12/15/20 01:11 NT-Pro-B Natriuret Pep 5010 pg/mL (0-450) H 12/14/20 20:20 Total Protein 5.9 g/dL (6.3-8.2) L 12/14/20 20:20 Albumin 3.4 g/dL (3.9-5) L 12/14/20 20:20 Albumin/Globulin Ratio 1.4 % 12/14/20 20:20 Smith/IV: Voiding Method Toilet Assessment and Plan - Patient Problems (1) DAVID (acute kidney injury) Current Visit: Yes Status: Acute Plan to address problem: NEPHROLOGY CONSULT (2) Acute exacerbation of CHF (congestive heart failure) Current Visit: Yes Status: Acute Plan to address problem: 1. SERIAL CARDIAC ENZYMES 2. 2 DECHOCARDIOGRAM 3. I.V LASIX 4. NITROPASTE
[2020-12-15] MEDS: NITROGLYCERIN 2% OINT 1 GM TP SCH ×4 (06:36→17:18)
[2020-12-15 06:57] LABS: Creatine Kinase MB 4.2 ng/mL (0.0-4.0)
[2020-12-15] MEDS ORDERED: ASPIRIN 325 MG TAB PO SCH (10:00)
--- NOTE | 2020-12-15 10:23 | Consultation ---
History of Present Illness - Reason for Consult Consult date: 12/15/20 acute renal failure - History of Present Illness This is a 40 year old male who presented to the E.R with a chief complaint of shortness of breath and leg swelling 3-4 days ago. Patient diagnosed with CHF exacerbation. Patient was started on Lasix. Pertinent labs revealed a serum creatinine of 1.8 on admission, previous labs showed serum creatinine~1.3 . Patient has history of CHF, Hypertension, Diabetes Mellitus and CAD. We are being consulted for management of this patient's Acute Renal Failure. Past History Past Medical History: CAD, diabetes, heart failure, hypertension, hyperlipidemia, other (SLEEP APNEA) Past Surgical History: Other (CARDIAC STENT) Social history: no significant social history Family history: no significant family history Medications and Allergies Allergies Allergy/AdvReac Type Severity Reaction Status Date / Time No Known Allergies Allergy Verified 07/14/17 10:18 Home Medications Medication Instructions Recorded Confirmed Last Taken Type Aspirin EC [Ecotrin] 325 mg PO NOW #30 tablet 07/02/19 12/14/20 Unknown Rx Metoprolol [Lopressor TAB] 25 mg PO BID #60 tablet 07/02/19 12/14/20 Unknown Rx Multivitamin Tab [Multiple Vitamin 1 each PO QDAY #30 tablet 07/02/19 12/14/20 Unknown Rx TAB (Theragran)] Thiamine [Vitamin B-1] 100 mg PO QDAY #30 tablet 07/02/19 12/14/20 Unknown Rx amLODIPine 10 mg PO DAILY 30 Days #30 tab 07/02/19 12/14/20 Unknown Rx lisinopriL [Zestril TAB] 20 mg PO QDAY #30 tablet 07/02/19 12/14/20 Unknown Rx Losartan [Cozaar] 100 mg PO QDAY #30 tablet 10/06/19 12/14/20 Unknown Rx carvediloL [Coreg] 6.25 mg PO BID #60 tablet 10/06/19 12/14/20 Unknown Rx hydroCHLOROthiazide [HCTZ] 25 mg PO QDAY #30 tablet 10/06/19 12/14/20 Unknown Rx metFORMIN [Glucophage] 500 mg PO BID #60 tablet 10/06/19 12/14/20 Unknown Rx Furosemide [Lasix TAB] 40 mg PO QDAY #30 tablet 01/31/20 12/14/20 Unknown Rx glipiZIDE [Glucotrol] 5 mg PO BID #60 tablet 03/28/20 12/14/20 Unknown Rx metFORMIN [Glucophage] 850 mg PO BID #60 tablet 03/28/20 12/14/20 Unknown Rx Furosemide [Lasix TAB] 40 mg PO QDAY #30 tablet 11/13/20 12/14/20 Unknown Rx Active Meds: Active Medications Acetaminophen (Acetaminophen 325 Mg Tab) 650 mg PO Q4H PRN PRN Reason: Fever >101 Aspirin (Aspirin 325 Mg Tab) 325 mg PO QDAY [facility] Dextrose (Dextrose 50% In Water (25gm) 50 Ml Syringe) 0 ml IV Q30MIN PRN; Protocol PRN Reason: Hypoglycemia Furosemide (Furosemide 40 Mg/4 Ml Inj) 40 mg IV QDAY IJEOMA Heparin Sodium (Porcine) (Heparin 5,000 Unit/1 Ml Vial) 5,000 unit SUB-Q Q12HR [facility] Last Admin: 12/15/20 03:18 Dose: 5,000 unit Documented by: Insulin Human Regular (Insulin Regular, Human 100 Units/1 Ml) 0 units SUB-Q AC IJEOMA; Protocol Insulin Human Regular (Insulin Regular, Human 100 Units/1 Ml) 0 units SUB-Q QHS [facility]; Protocol Nitroglycerin (Nitroglycerin 2% Oint 1 Gm) 0.5 inch TP QIDNTG IJEOMA; Protocol Last Admin: 12/15/20 06:36 Dose: Not Given Documented by: Review of Systems Constitutional: fatigue, no weight loss, no weight gain, no fever, no chills, no sweats Ears, nose, mouth and throat: no ear pain, no ear discharge, no tinnitis, no decreased hearing, no nose pain, no nasal congestion, no nasal discharge, no sinus pressure Cardiovascular: edema, shortness of breath, dyspnea on exertion, leg edema Respiratory: shortness of breath, dyspnea on exertion, no cough with sputum, no excessive sputum, no hemoptysis Gastrointestinal: no abdominal pain, no nausea, no vomiting, no diarrhea, no constipation, no change in bowel habits Genitourinary Male: no hematuria, no flank pain, no discharge, no urinary frequency, no urinary hesitancy, no nocturia Rectal: no pain, no incontinence, no bleeding, no itching Musculoskeletal: no neck stiffness, no neck pain, no shooting arm pain, no arm numbness/tingling, no low back pain, no shooting leg pain Integumentary: no rash, no pruritis, no redness, no sores, no wounds, no jaundice Neurological: no head injury, no transient paralysis, no paralysis, no weakness, no parathesias, no numbness, no tingling, no seizures, no syncope, no tremors Psychiatric: no anxiety, no memory loss, no change in sleep habits, no sleep disturbances, no insomnia, no hypersomnia, no change in appetite, no change in libido Endocrine: no cold intolerance, no heat intolerance, no polyphagia, no excessive thirst, no polydipsia, no polyuria, no nocturia Hematologic/Lymphatic: no easy bruising, no easy bleeding, no lymphadenopathy, no lymphedema Exam - Vital Signs Vital signs: Vital Signs Pulse Resp BP Pulse Ox 99 H 16 117/81 97 12/14/20 20:09 12/14/20 20:09 12/14/20 20:09 12/14/20 20:09 - General Appearance General appearance: well-developed, appears stated age, fatigue EENT: ATNC, PERRL, hearing intact, vision intact Neck: Present: neck supple, trachea midline Respiratory: Decreased Breath Sounds Heart: S1S2 Gastrointestinal: Present: normoactive bowel sounds Integumentary: warm and dry Neurologic: alert and oriented x3 Musculoskeletal: Present: joint swelling Results - Lab Results 12/14/20 20:20 12/14/20 20:20 Most recent lab results Calcium 8.5 mg/dL (8.4-10.2) 12/14/20 20:20 Assessment and Plan Assessment: (Principal Admitting Problem)-CHF Exascerbation Acute Renal Failure in setting of diuretics, may have CKD Hypertension Diabetes Mellitus Plan: Serum creatinine 1.8 yesterday. Labs for today not collected yet. On Lasix 40 mg IV daily, may need to decrease if renal function worsens Labs in [id number] showed serum creatinine 1.1-1.3 Will obtain renal ultrasound to rule out obstruction Obtain urine lytes, protein and eosinophils Echocardiogram-pending Avoid nephrotoxins Obtain daily weights Strict I/O's daily Continue to monitor renal function closely
[2020-12-15] MEDS: FUROSEMIDE 40 MG/4 ML INJ IV SCH (10:27)
[2020-12-15] MEDS: INSULIN REGULAR, HUMAN 100 UNITS/1 ML SUB-Q SCH ×4 (10:30→22:43)
[2020-12-15 12:02] LABS: Calcium 8.4 mg/dL (8.4-10.2)
--- NOTE | 2020-12-15 13:44 | Progress Note ---
Assessment and Plan 40-year-old male with a history of CHF presented to the hospital with few days onset of progressive dyspnea and bilateral lower extremity swelling. --Acute HFrEF (heart failure with reduced ejection fraction) Cont. Telemetry, Echo revealed left ventricular chamber size moderately dilated with systolic function severely decreased and EF of 15-20%. Cardiology following Continue diuretics. Patient may need life vest --DIANN (obstructive sleep apnea) Supplemental oxygen, nebulizer therapy, NIPPV as clinically indicated, Chest x ray. --EtOH dependence thiamine, folic acid, multivitamin daily, --Nicotine dependence smoking cessation counseling +15 minutes, supportive care. --Obesity (BMI 30.0-34.9) Balanced diet, increased physical activity at discharge, --DAVID, continue to monitor BMP, consulted nephrology --DVT prophylaxis SCD to BLE while in bed. Daily course: 12/15: cont iv diuresis, follow ins/os. Patient may need LifeVest on discharge, cardiology following. Monitor BMP, consult nephrology Subjective Date of service: 12/15/20 Objective - Constitutional Vitals: Vital Signs - 12hr 12/15/20 12/15/20 12/15/20 04:47 08:20 11:00 Temperature 98.0 F 97.9 F Pulse Rate 98 H 100 H 96 H Respiratory 18 20 Rate Blood Pressure 111/77 123/85 O2 Sat by Pulse 96 97 Oximetry - Labs CBC & Chem 7: 12/14/20 20:20 12/15/20 10:22 Labs: Abnormal lab results 12/14/20 12/14/20 12/15/20 Range/Units 20:20 20:20 01:11 Hgb 15.3 H (11.8-15.2) gm/dl Hct 46.4 H (35.5-45.6) % MCV 97 H (84-94) fl Seg Neutrophils % 71.7 H (40.0-70.0) % Sodium 134 L (137-145) mmol/L Chloride 97.9 L (98-107) mmol/L Carbon Dioxide (22-30) mmol/L BUN 30 H (9-20) mg/dL Creatinine 1.8 H (0.8-1.3) mg/dL Glucose 151 H (75-100) mg/dL POC Glucose (70-105) mg/dL Total Bilirubin 1.50 H (0.1-1.2) mg/dL AST 64 H (5-40) units/L ALT 98 H (7-56) units/L Total Creatine Kinase 195 H (55-170) units/L CK-MB (CK-2) 4.2 H (0.0-4.0) ng/mL NT-Pro-B Natriuret Pep 5010 H (0-450) pg/mL Total Protein 5.9 L (6.3-8.2) g/dL Albumin 3.4 L (3.9-5) g/dL 12/15/20 12/15/20 12/15/20 Range/Units 05:53 08:17 10:22 Hgb (11.8-15.2) gm/dl Hct (35.5-45.6) % MCV (84-94) fl Seg Neutrophils % (40.0-70.0) % Sodium (137-145) mmol/L Chloride (98-107) mmol/L Carbon Dioxide 31 H (22-30) mmol/L BUN 35 H (9-20) mg/dL Creatinine 1.8 H (0.8-1.3) mg/dL Glucose 185 H (75-100) mg/dL POC Glucose 149 H (70-105) mg/dL Total Bilirubin (0.1-1.2) mg/dL AST (5-40) units/L ALT (7-56) units/L Total Creatine Kinase 196 H (55-170) units/L CK-MB (CK-2) 4.2 H (0.0-4.0) ng/mL NT-Pro-B Natriuret Pep (0-450) pg/mL Total Protein (6.3-8.2) g/dL Albumin (3.9-5) g/dL HEART Score - HEART Score Risk factors: 1-2 risk factors Troponin: Troponin T < 0.010 ng/mL (0.00-0.029) 12/15/20 05:53 Troponin: < normal limit - Critical Actions Critical Actions: 0-3 pts:0.9-1.7%risk of adverse cardiac event.Candidate for discharge
--- NOTE | 2020-12-15 16:02 | Consultation ---
History of Present Illness Consult date: 12/15/20 Requesting physician: SUSHMA ROSA Consult reason: congestive heart failure (Acute on Chronic Heart Failure Reduced EF) History of present illness: This patient is a 40 year old Male with a significant history of HFrEF, Dilated Cardiomyopathy: EF15-20%, HTN, HLD, DM2, DIANN without CPAP (Sleep study 3 days ago, has not received CPAP). Patient is known to our practice. Patient presented to [facility] ER with acute exacerbation of chronic SOB, Orthopnea, and Lower Extremity Edema. Patient reports he has been out of his diuretic x 1 month. He was seen approx 1 year ago in hospital with CHF exacerbation and was placed on lifevest. He was reportedly noncompliant with follow up and is currently without lifevest after order was not renewed. Pt denies any ETOH or Drug use. He reports SCHMIDT with ADLs. He states he has been significantly exceeding his CHF intake guidelines stating he has been trying to "detox due to his DM2". Echo 12/14/20 Reviewed: EF 15-20%, Severe global hypokinesis of left ventricle. Trace MR. Mild TR. RVSP 44 mmHg. CXR reviewed: Pulmonary Edema Past History Past Medical History: CAD, diabetes, heart failure, hypertension, hyperlipidemia, other (SLEEP APNEA) Past Surgical History: Other (CARDIAC STENT) Social history: no significant social history Family history: no significant family history Medications and Allergies Allergies Allergy/AdvReac Type Severity Reaction Status Date / Time No Known Allergies Allergy Verified 07/14/17 10:18 Home Medications Medication Instructions Recorded Confirmed Last Taken Type Aspirin EC [Ecotrin] 325 mg PO NOW #30 tablet 07/02/19 12/14/20 Unknown Rx Metoprolol [Lopressor TAB] 25 mg PO BID #60 tablet 07/02/19 12/14/20 Unknown Rx Multivitamin Tab [Multiple Vitamin 1 each PO QDAY #30 tablet 07/02/19 12/14/20 Unknown Rx TAB (Theragran)] Thiamine [Vitamin B-1] 100 mg PO QDAY #30 tablet 07/02/19 12/14/20 Unknown Rx amLODIPine 10 mg PO DAILY 30 Days #30 tab 07/02/19 12/14/20 Unknown Rx lisinopriL [Zestril TAB] 20 mg PO QDAY #30 tablet 07/02/19 12/14/20 Unknown Rx Losartan [Cozaar] 100 mg PO QDAY #30 tablet 10/06/19 12/14/20 Unknown Rx carvediloL [Coreg] 6.25 mg PO BID #60 tablet 10/06/19 12/14/20 Unknown Rx hydroCHLOROthiazide [HCTZ] 25 mg PO QDAY #30 tablet 10/06/19 12/14/20 Unknown Rx metFORMIN [Glucophage] 500 mg PO BID #60 tablet 10/06/19 12/14/20 Unknown Rx Furosemide [Lasix TAB] 40 mg PO QDAY #30 tablet 01/31/20 12/14/20 Unknown Rx glipiZIDE [Glucotrol] 5 mg PO BID #60 tablet 03/28/20 12/14/20 Unknown Rx metFORMIN [Glucophage] 850 mg PO BID #60 tablet 03/28/20 12/14/20 Unknown Rx Furosemide [Lasix TAB] 40 mg PO QDAY #30 tablet 11/13/20 12/14/20 Unknown Rx Active Meds: Active Medications Acetaminophen (Acetaminophen 325 Mg Tab) 650 mg PO Q4H PRN PRN Reason: Fever >101 Carvedilol (Carvedilol 6.25 Mg Tab) 6.25 mg PO BID [facility] Dextrose (Dextrose 50% In Water (25gm) 50 Ml Syringe) 0 ml IV Q30MIN PRN; Protocol PRN Reason: Hypoglycemia Furosemide (Furosemide 40 Mg/4 Ml Inj) 40 mg IV QDAY [facility] Last Admin: 12/15/20 10:27 Dose: 40 mg Documented by: Heparin Sodium (Porcine) (Heparin 5,000 Unit/1 Ml Vial) 5,000 unit SUB-Q Q12HR [facility] Last Admin: 12/15/20 10:30 Dose: 5,000 unit Documented by: Insulin Human Regular (Insulin Regular, Human 100 Units/1 Ml) 0 units SUB-Q AC [facility]; Protocol Last Admin: 12/15/20 12:38 Dose: Not Given Documented by: Insulin Human Regular (Insulin Regular, Human 100 Units/1 Ml) 0 units SUB-Q QHS [facility]; Protocol Nitroglycerin (Nitroglycerin 2% Oint 1 Gm) 0.5 inch TP QIDNTG [facility]; Protocol Last Admin: 12/15/20 14:09 Dose: Not Given Documented by: Review of Systems Constitutional: weight gain, no weight loss, no fever, no chills, no sweats Ears, nose, mouth and throat: no ear pain, no ear discharge, no decreased hearing, no nose pain, no nasal congestion, no nasal discharge, no sinus pressure, no sinus pain Cardiovascular: edema, dyspnea on exertion, leg edema, no chest pain, no palpitations, no rapid/irregular heart beat, no syncope, no lightheadedness, no shortness of breath Respiratory: shortness of breath, dyspnea on exertion, no cough, no hemoptysis Gastrointestinal: no abdominal pain, no nausea, no vomiting, no diarrhea, no constipation Genitourinary Male: no flank pain Musculoskeletal: no neck stiffness, no neck pain Integumentary: no rash, no pruritis, no redness, no sores, no wounds, no jaundice Neurological: no head injury, no transient paralysis, no paralysis, no weakness, no parathesias, no numbness, no tingling, no seizures, no syncope Psychiatric: no anxiety Endocrine: no cold intolerance, no heat intolerance Hematologic/Lymphatic: no easy bruising, no easy bleeding Allergic/Immunologic: no urticaria Physical Examination Last Vital Signs Temp 98.0 F 12/15/20 12:25 Pulse 101 H 12/15/20 12:25 Resp 20 12/15/20 12:25 BP 116/77 12/15/20 12:25 Pulse Ox 94 12/15/20 12:25 General appearance: no acute distress HEENT: Positive: PERRL, Normocephaly, Mucus Membranes Moist Neck: Positive: neck supple, trachea midline Cardiac: Positive: Reg Rate and Rhythm, S1/S2 Lungs: Positive: clear to auscultation, Normal Breath Sounds Neuro: Positive: Grossly Intact Abdomen: Positive: Unremarkable Skin: Negative: Rash, Wound Musculoskeletal: No Pain Extremities: Present: upper extr. pulses, lower extr. pulses, +2 Edema Results 12/14/20 20:20 12/15/20 10:22 Cardiac Enzymes 12/14/20 12/15/20 12/15/20 Range/Units 20:20 01:11 05:53 AST 64 H (5-40) units/L CK-MB (CK-2) 4.2 H 4.2 H (0.0-4.0) ng/mL CBC 12/14/20 Range/Units 20:20 WBC 9.4 (4.5-11.0) K/mm3 RBC 4.78 (3.65-5.03) M/mm3 Hgb 15.3 H (11.8-15.2) gm/dl Hct 46.4 H (35.5-45.6) % Plt Count 152 (140-440) K/mm3 Lymph # (Auto) 2.0 (1.2-5.4) K/mm3 Hayes # (Auto) 0.6 (0.0-0.8) K/mm3 Eos # (Auto) 0.0 (0.0-0.4) K/mm3 Baso # (Auto) 0.0 (0.0-0.1) K/mm3 Comprehensive Metabolic Panel 12/14/20 12/15/20 Range/Units 20:20 10:22 Sodium 134 L 137 (137-145) mmol/L Potassium 5.0 4.1 (3.6-5.0) mmol/L Chloride 97.9 L 99.7 (98-107) mmol/L Carbon Dioxide 29 31 H (22-30) mmol/L BUN 30 H 35 H (9-20) mg/dL Creatinine 1.8 H 1.8 H (0.8-1.3) mg/dL Glucose 151 H 185 H (75-100) mg/dL Calcium 8.5 8.4 (8.4-10.2) mg/dL AST 64 H (5-40) units/L ALT 98 H (7-56) units/L Alkaline Phosphatase 90 (35-129) units/L Total Protein 5.9 L (6.3-8.2) g/dL Albumin 3.4 L (3.9-5) g/dL - Imaging and Cardiology Echo: report reviewed (EF 15-20%, Severe global hypokinesis of left ventricle. Trace MR. Mild TR. RVSP 44 mmHg.) EKG: report reviewed, image reviewed - EKG Interpretation EKG shows: tachycardia EKG interpretations - Telemetry EKG Rhythm: Sinus Tachycardia AV and intraventricular conduction: left bundle branch block (Unchanged from previous ECG) Assessment and Plan Patient presents with acute exacerbation of heart failure with reduced ejection fraction. He has a history of dilated cardiomyopathy and is recommended to wear life vest. Patient is not compliant with cardiac f/u and currently does not have lifevest after order was not renewed. Pt is noncompliant with his CHF diet regarding limiting intake of fluids, reporting large fluid intake to adress his DM2. Will request nutrition consult to review CHF intake guidelines. Agree with gentle diuresis with 40u of lasix qd. Will consider increasing to 40u BID as renal function allows per Nephrology. Optimize HR and BP. Resume Coreg. ACEI/ARB held in setting of acute renal injury. Echo 12/14/2020 Reviewed: EF 15-20%, Severe global hypokinesis of left ventricle. Trace MR. Mild TR. RVSP 44 mmHg. Will follow. Pt was seen in conjunction with Dr Tyler, who agrees with this assessment and plan of care. - Patient Problems (1) Acute HFrEF (heart failure with reduced ejection fraction) Current Visit: Yes Status: Chronic (2) Nonischemic cardiomyopathy Current Visit: Yes Status: Chronic (3) DAVID (acute kidney injury) Current Visit: Yes Status: Acute (4) HTN (hypertension) Current Visit: Yes Status: Chronic (5) Diabetes mellitus Current Visit: Yes Status: Chronic (6) HLD (hyperlipidemia) Current Visit: Yes Status: Chronic (7) DIANN (obstructive sleep apnea) Current Visit: No Status: Chronic (8) Uncontrolled hypertension Current Visit: No Status: Chronic (9) Sleep apnea Current Visit: No Status: Suspected
[2020-12-15 19:02] LABS: Creatinine,Urine 111.7 mg/dL (0.1-20.0); Protein/Creatinine Ratio,Urine 0.08
--- NOTE | 2020-12-15 19:30 | Ultrasound Report ---
ULTRASOUND RENAL INDICATION: renal failure. COMPARISON: No relevant prior imaging study available. FINDINGS: RIGHT KIDNEY: Size: 9.9 x 5.1 x 5.2 cm. Echogenicity: Normal. Cortical thickness: Moderate thinning, 0.7 cm. Hydronephrosis: None. Cyst or mass: None. Stones: None. LEFT KIDNEY: Size: 9.5 x 5.4 x 5.1 cm. Echogenicity: Normal. Cortical thickness: Mild thinning, 1.2 cm. Hydronephrosis: None. Cyst or mass: None. Stones: None. Urinary Bladder: No significant abnormality. Free Fluid: None. Additional Findings: None. IMPRESSION 1. No acute sonographic abnormality of the kidneys. 2. Bilateral renal cortical thinning as above. Signer Name: Bradley Ross MD Signed: 12/15/2020 7:26 PM Workstation Name: [id number]
[2020-12-15] MEDS: carvediloL 6.25 MG TAB PO SCH (22:32)
[2020-12-16] MEDS: NITROGLYCERIN 2% OINT 1 GM TP SCH ×4 (06:12→17:30)
[2020-12-16 06:40] LABS: Calcium 8.4 mg/dL (8.4-10.2)
[2020-12-16] MEDS: INSULIN REGULAR, HUMAN 100 UNITS/1 ML SUB-Q SCH ×4 (08:32→22:47)
[2020-12-16] MEDS: carvediloL 6.25 MG TAB PO SCH ×2 (09:08→22:46)
[2020-12-16] MEDS: FUROSEMIDE 40 MG/4 ML INJ IV SCH (09:08)
[2020-12-16] MEDS: HEPARIN 5,000 UNIT/1 ML VIAL SUB-Q SCH ×2 (09:08→22:46)
--- NOTE | 2020-12-16 09:27 | Progress Note ---
Assessment and Plan Assessment: (Principal Admitting Problem)-CHF Exascerbation Acute Renal Failure in setting of diuretics, may have CKD Hypertension Diabetes Mellitus Plan: Renal labs reviewed. Serum creatinine 1.6 today, yesterday's was 1.8 Labs in [id number] showed serum creatinine 1.1-1.3 Renal ultrasound-No Hydronephrosis Urine lytes reviewed. No significant proteinuria. No urine eosinophils. Echocardiogram- EF 15-20% On Lasix 40 mg IV daily Avoid nephrotoxins Obtain daily weights Strict I/O's daily Continue to monitor renal function closely Subjective Date of service: 12/16/20 Principal diagnosis: CHF Exascerbation Interval history: Patient seeing sitting up in chair. Fugitive Investigator in room. Reviewed renal plan of care. Objective - Vital Signs Vital signs: Vital Signs - 12hr 12/15/20 12/15/20 12/15/20 22:00 22:32 23:00 Temperature Pulse Rate 104 H 104 H Respiratory 20 Rate Blood Pressure 104/78 Blood Pressure [Left] O2 Sat by Pulse 94 Oximetry 12/16/20 12/16/20 12/16/20 00:01 03:40 04:35 Temperature 97.8 F Pulse Rate 101 H 89 96 H Respiratory 20 20 20 Rate Blood Pressure 103/75 146/76 Blood Pressure 108/73 [Left] O2 Sat by Pulse 93 97 98 Oximetry 12/16/20 12/16/20 12/16/20 06:12 07:51 09:08 Temperature 97.4 F L Pulse Rate 94 H 98 H 98 H Respiratory 16 Rate Blood Pressure 108/73 124/75 124/75 Blood Pressure [Left] O2 Sat by Pulse 89 Oximetry - General Appearance General appearance: well-developed, appears stated age, fatigue EENT: ATNC, PERRL, hearing intact, vision intact Neck: no JVD, supple Respiratory: Present: Decreased Breath Sounds Cardiology: S1S2 Gastrointestinal: normoactive bowel sounds Integumentary: warm and dry Neurologic: alert and oriented x3 Musculoskeletal: joint swelling - Lab 12/14/20 20:20 12/16/20 05:17 Most recent lab results Calcium 8.4 mg/dL (8.4-10.2) 12/16/20 05:17 Phosphorus 3.70 mg/dL (2.5-4.5) 12/16/20 05:17 Urine Creatinine 111.7 mg/dL (0.1-20.0) H 12/15/20 15:00 Urine Sodium 36 mmol/L 12/15/20 15:00 Urine Total Protein 9 mg/dL (5-11.8) 12/15/20 15:00 Medications & Allergies - Medications Allergies/Adverse Reactions: Allergies No Known Allergies Allergy (Verified 07/14/17 10:18) Home Medications: Home Medications Medication Instructions Recorded Confirmed Last Taken Type Aspirin EC [Ecotrin] 325 mg PO NOW #30 tablet 07/02/19 12/14/20 Unknown Rx Metoprolol [Lopressor TAB] 25 mg PO BID #60 tablet 07/02/19 12/14/20 Unknown Rx Multivitamin Tab [Multiple Vitamin 1 each PO QDAY #30 tablet 07/02/19 12/14/20 Unknown Rx TAB (Theragran)] Thiamine [Vitamin B-1] 100 mg PO QDAY #30 tablet 07/02/19 12/14/20 Unknown Rx amLODIPine 10 mg PO DAILY 30 Days #30 tab 07/02/19 12/14/20 Unknown Rx lisinopriL [Zestril TAB] 20 mg PO QDAY #30 tablet 07/02/19 12/14/20 Unknown Rx Losartan [Cozaar] 100 mg PO QDAY #30 tablet 10/06/19 12/14/20 Unknown Rx carvediloL [Coreg] 6.25 mg PO BID #60 tablet 10/06/19 12/14/20 Unknown Rx hydroCHLOROthiazide [HCTZ] 25 mg PO QDAY #30 tablet 10/06/19 12/14/20 Unknown Rx metFORMIN [Glucophage] 500 mg PO BID #60 tablet 10/06/19 12/14/20 Unknown Rx Furosemide [Lasix TAB] 40 mg PO QDAY #30 tablet 01/31/20 12/14/20 Unknown Rx glipiZIDE [Glucotrol] 5 mg PO BID #60 tablet 03/28/20 12/14/20 Unknown Rx metFORMIN [Glucophage] 850 mg PO BID #60 tablet 03/28/20 12/14/20 Unknown Rx Furosemide [Lasix TAB] 40 mg PO QDAY #30 tablet 11/13/20 12/14/20 Unknown Rx Active Medications: Generic Name Dose Route Start Last Admin Trade Name Freq PRN Reason Stop Dose Admin Acetaminophen 650 mg 12/14/20 23:15 Acetaminophen 325 Mg Tab PO Q4H PRN Fever >101 Carvedilol 6.25 mg 12/15/20 22:00 12/16/20 09:08 Carvedilol 6.25 Mg Tab PO 6.25 mg BID IJEOMA Administration Dextrose 0 ml 12/14/20 23:17 Dextrose 50% In Water (25gm) 50 Ml Syringe IV Q30MIN PRN Hypoglycemia Protocol Furosemide 40 mg 12/15/20 10:00 12/16/20 09:08 Furosemide 40 Mg/4 Ml Inj IV 40 mg QDAY IJEOMA Administration Heparin Sodium (Porcine) 5,000 unit 12/15/20 02:30 12/16/20 09:08 Heparin 5,000 Unit/1 Ml Vial SUB-Q 5,000 unit Q12HR [facility] Administration Insulin Human Regular 0 units 12/15/20 07:30 12/16/20 08:32 Insulin Regular, Human 100 Units/1 Ml SUB-Q Not Given AC [facility] Protocol Insulin Human Regular 0 units 12/15/20 22:00 12/15/20 22:43 Insulin Regular, Human 100 Units/1 Ml SUB-Q 1 units QHS IJEOMA Administration Protocol Nitroglycerin 0.5 inch 12/15/20 06:00 12/16/20 09:09 Nitroglycerin 2% Oint 1 Gm TP Not Given QIDNTG [facility] Protocol
--- NOTE | 2020-12-16 10:21 | Progress Note ---
Assessment and Plan Pt appears to be clinically improving. Cont present cardiac regimen. No ACEI/ARB at this time in setting of renal insufficiency. F/u BMP in AM. Pt has h/o LifeVest placement - LifeVest was returned to [facility] due to noncompliance with OP follow up. Will plan to evaluate for AICD candidacy as OP. Anticipate d/c within next 24-48hrs. The patient has been seen in conjunction with Dr. Tyler who agrees with the assessment and plan of care. - Patient Problems (1) Acute on chronic HFrEF (heart failure with reduced ejection fraction) Current Visit: Yes Status: Acute (2) Nonischemic cardiomyopathy Current Visit: Yes Status: Chronic (3) Normal coronary arteries Current Visit: Yes Status: Chronic (4) Uncontrolled hypertension Current Visit: Yes Status: Chronic (5) DAVID (acute kidney injury) Current Visit: Yes Status: Acute (6) Diabetes mellitus Current Visit: Yes Status: Chronic (7) Sleep apnea Current Visit: Yes Status: Chronic (8) Tobacco use Current Visit: Yes Status: Chronic (9) History of ETOH abuse Current Visit: Yes Status: Chronic (10) Medical noncompliance Current Visit: Yes Status: Chronic Subjective Date of service: 12/16/20 Principal diagnosis: HF Interval history: pt sitting up at bedside, feeling better, BLE swelling improving. tele reviewed - in SR HR 90s, 5 beat run NSVT noted overnight, pt asymptomatic. Objective Last Vital Signs Temp 97.4 F L 12/16/20 07:51 Pulse 98 H 12/16/20 09:08 Resp 16 12/16/20 07:51 BP 124/75 12/16/20 09:08 Pulse Ox 89 12/16/20 07:51 - Physical Examination General: No Apparent Distress HEENT: Positive: PERRL, Normocephaly, Mucus Membranes Moist Neck: Positive: neck supple, trachea midline Cardiac: Positive: Reg Rate and Rhythm, S1/S2 Lungs: Positive: Decreased Breath Sounds Neuro: Positive: Grossly Intact Abdomen: Positive: Unremarkable Skin: Negative: Rash, Wound Musculoskeletal: No Pain Extremities: Present: upper extr. pulses, lower extr. pulses, +2 Edema - Labs and Meds Comprehensive Metabolic Panel 12/15/20 12/16/20 Range/Units 10:22 05:17 Sodium 137 137 (137-145) mmol/L Potassium 4.1 3.7 (3.6-5.0) mmol/L Chloride 99.7 100.3 (98-107) mmol/L Carbon Dioxide 31 H 31 H (22-30) mmol/L BUN 35 H 33 H (9-20) mg/dL Creatinine 1.8 H 1.6 H (0.8-1.3) mg/dL Glucose 185 H 120 H (75-100) mg/dL Calcium 8.4 8.4 (8.4-10.2) mg/dL - Imaging and Cardiology EKG: report reviewed, image reviewed Echo: report reviewed (EF 15-20%, Severe global hypokinesis of left ventricle. Trace MR. Mild TR. RVSP 44 mmHg.) - Telemetry EKG Rhythm: Sinus Rhythm AV and intraventricular conduction: left bundle branch block (Unchanged from previous ECG)
--- NOTE | 2020-12-16 14:05 | Progress Note ---
Assessment and Plan 40-year-old male with a history of CHF presented to the hospital with few days onset of progressive dyspnea and bilateral lower extremity swelling. --Acute HFrEF (heart failure with reduced ejection fraction) Cont. Telemetry, Echo revealed left ventricular chamber size moderately dilated with systolic function severely decreased and EF of 15-20%. Cardiology following Continue diuretics. Patient may need life vest --DIANN (obstructive sleep apnea) Supplemental oxygen, nebulizer therapy, NIPPV as clinically indicated, Chest x ray. --EtOH dependence thiamine, folic acid, multivitamin daily, --Nicotine dependence smoking cessation counseling +15 minutes, supportive care. --Obesity (BMI 30.0-34.9) Balanced diet, increased physical activity at discharge, --DAVID, continue to monitor BMP, consulted nephrology --DVT prophylaxis SCD to BLE while in bed. Daily course: 12/15: cont iv diuresis, follow ins/os. Patient may need LifeVest on discharge, cardiology following. Monitor BMP, consult nephrology 12/16: Increase IV diuresis to twice a day with Lasix 40 mg IV. Continue to monitor ins and O's. Follow cardiology recommendation. Monitor renal function. Subjective Date of service: 12/16/20 Principal diagnosis: HF Interval history: Patient seen and examined. Medical records and medication list reviewed. No acute event overnight noted by the RN. Patient denies any chest pain but complains of exertional difficulty breathing. Patient is tolerating diet. Discussed plan of care at bedside with patient. Objective - Exam Narrative Exam: GENERAL: well-developed and well-nourished -[place] male lying on bed appeared to be in no discomfort. HEENT: Normocephalic. Atraumatic. No conjunctival congestion or icterus. Pat ient has moist mucous membranes. NECK: Supple. Trachea midline. CHEST/LUNGS: Breath sound auscultated bilaterally, breathing nonlabored. No wheezes or rhonchi. HEART/CARDIOVASCULAR: Regular in rate and rhythm. S1 and S2 positive. ABDOMEN: Abdomen is soft, nontender. Patient has normal bowel sounds. SKIN: There is no rash. Warm and dry. NEURO: No focal motor deficit. Follows command. MUSCULOSKELETAL: No joint effusion or tenderness. EXTRIMITY: 2+ pitting edema, no cyanosis or clubbing. PSYCH: Cooperative. - Constitutional Vitals: Vital Signs - 12hr 12/16/20 12/16/20 12/16/20 03:40 04:35 06:12 Temperature Pulse Rate 89 96 H 94 H Respiratory 20 20 Rate Blood Pressure 146/76 108/73 Blood Pressure 108/73 [Left] O2 Sat by Pulse 97 98 Oximetry 12/16/20 12/16/20 07:51 09:08 Temperature 97.4 F L Pulse Rate 98 H 98 H Respiratory 16 Rate Blood Pressure 124/75 124/75 Blood Pressure [Left] O2 Sat by Pulse 89 Oximetry - Labs CBC & Chem 7: 12/14/20 20:20 12/16/20 05:17 Labs: Abnormal lab results 12/15/20 12/15/20 12/15/20 Range/Units 12:17 15:00 17:24 Carbon Dioxide (22-30) mmol/L BUN (9-20) mg/dL Creatinine (0.8-1.3) mg/dL Glucose (75-100) mg/dL POC Glucose 106 H 108 H (70-105) mg/dL Urine Creatinine 111.7 H (0.1-20.0) mg/dL 12/15/20 12/16/20 Range/Units 21:34 05:17 Carbon Dioxide 31 H (22-30) mmol/L BUN 33 H (9-20) mg/dL Creatinine 1.6 H (0.8-1.3) mg/dL Glucose 120 H (75-100) mg/dL POC Glucose 161 H (70-105) mg/dL Urine Creatinine (0.1-20.0) mg/dL HEART Score - HEART Score Risk factors: 1-2 risk factors Troponin: Troponin T < 0.010 ng/mL (0.00-0.029) 12/15/20 05:53 Troponin: < normal limit - Critical Actions Critical Actions: 0-3 pts:0.9-1.7%risk of adverse cardiac event.Candidate for discharge
[2020-12-16] MEDS: THIAMINE 100 MG TAB PO SCH (17:00)
[2020-12-16] MEDS: ASPIRIN EC 81 MG TAB PO SCH (17:00)
[2020-12-16] MEDS: FOLIC ACID 1 MG TAB PO SCH (17:00)
[2020-12-17 07:07] LABS: Calcium 8.4 mg/dL (8.4-10.2)
--- NOTE | 2020-12-17 08:01 | Progress Note ---
Assessment and Plan Assessment and plan: 40-year-old male with a history of CHF presented to the hospital with few days onset of progressive dyspnea and bilateral lower extremity swelling. --Acute HFrEF (heart failure with reduced ejection fraction) Cont. Telemetry, Echo revealed left ventricular chamber size moderately dilated with systolic function severely decreased and EF of 15-20%. Cardiology following Continue diuretics. Patient may need life vest --DIANN (obstructive sleep apnea) Supplemental oxygen, nebulizer therapy, NIPPV as clinically indicated, Chest x ray. --EtOH dependence thiamine, folic acid, multivitamin daily, --Nicotine dependence smoking cessation counseling +15 minutes, supportive care. --Obesity (BMI 30.0-34.9) Balanced diet, increased physical activity at discharge, --DAVID, continue to monitor BMP, consulted nephrology --Diabetes mellitus --Nonischemic cardiomyopathy --Medical noncompliance counseling provided. --DVT prophylaxis SCD to BLE while in bed. Daily course: 12/15: cont iv diuresis, follow ins/os. Patient may need LifeVest on discharge, cardiology following. Monitor BMP, consult nephrology 12/16: Increase IV diuresis to twice a day with Lasix 40 mg IV. Continue to monitor ins and O's. Follow cardiology recommendation. Monitor renal function. 12/17: Creatinine showing some mild improvement. We will continue current management ARB held at this time. Will monitor diurese for additional 1 day ensure renal stability. Discussed with cardiology patient can be discharged tomorrow on 40 mg of Lasix p.o.twice daily. Will recommend to continue to hold ARB and CONSTANTINO inhibitors until renal function improves this will also require follow-up with nephrology outpatient. History Interval history: Patient seen and examined this morning clinically improving. Renal function noted to be improving I did discuss with cardiology anticipate discharge tomorrow on Lasix 40 mg twice daily. Hospitalist Physical - Physical exam Narrative exam: GENERAL: well-developed and well-nourished -[place] male sitting on bed appeared to be in no discomfort. HEENT: Normocephalic. Atraumatic. No conjunctival congestion or icterus. Patient has moist mucous membranes. NECK: Supple. Trachea midline. CHEST/LUNGS: Breath sound auscultated bilaterally, breathing nonlabored. No wheezes or rhonchi. HEART/CARDIOVASCULAR: Regular in rate and rhythm. S1 and S2 positive. ABDOMEN: Abdomen is soft, nontender. Patient has normal bowel sounds. SKIN: There is no rash. Warm NEURO: No focal motor deficit. Follows command. MUSCULOSKELETAL: No joint effusion or tenderness. EXTRIMITY: 2+ pitting edema, no cyanosis or clubbing. PSYCH: Cooperative - Constitutional Vitals: Temp Pulse Resp BP Pulse Ox 97.5 F L 87 20 112/79 89 12/17/20 04:45 12/17/20 04:45 12/17/20 04:45 12/17/20 04:45 12/17/20 04:45 General appearance: Present: no acute distress HEART Score - HEART Score Risk factors: 1-2 risk factors Troponin: Troponin T < 0.010 ng/mL (0.00-0.029) 12/15/20 05:53 Troponin: < normal limit - Critical Actions Critical Actions: 0-3 pts:0.9-1.7%risk of adverse cardiac event.Candidate for discharge Results - Labs CBC & Chem 7: 12/14/20 20:20 12/17/20 04:25 Labs: Laboratory Last Values WBC 9.4 K/mm3 (4.5-11.0) 12/14/20 20:20 RBC 4.78 M/mm3 (3.65-5.03) 12/14/20 20:20 Hgb 15.3 gm/dl (11.8-15.2) H 12/14/20 20:20 Hct 46.4 % (35.5-45.6) H 12/14/20 20:20 MCV 97 fl (84-94) H 12/14/20 20:20 MCH 32 pg (28-32) 12/14/20 20:20 MCHC 33 % (32-34) 12/14/20 20:20 RDW 15.1 % (13.2-15.2) 12/14/20 20:20 Plt Count 152 K/mm3 (140-440) 12/14/20 20:20 Lymph % (Auto) 21.6 % (13.4-35.0) 12/14/20 20:20 Ector % (Auto) 5.9 % (0.0-7.3) 12/14/20 20:20 Eos % (Auto) 0.3 % (0.0-4.3) 12/14/20 20:20 Baso % (Auto) 0.5 % (0.0-1.8) 12/14/20 20:20 Lymph # (Auto) 2.0 K/mm3 (1.2-5.4) 12/14/20 20:20 Ector # (Auto) 0.6 K/mm3 (0.0-0.8) 12/14/20 20:20 Eos # (Auto) 0.0 K/mm3 (0.0-0.4) 12/14/20 20:20 Baso # (Auto) 0.0 K/mm3 (0.0-0.1) 12/14/20 20:20 Seg Neutrophils % 71.7 % (40.0-70.0) H 12/14/20 20:20 Seg Neutrophils # 6.7 K/mm3 (1.8-7.7) 12/14/20 20:20 Sodium 141 mmol/L (137-145) 12/17/20 04:25 Potassium 3.8 mmol/L (3.6-5.0) 12/17/20 04:25 Chloride 101.7 mmol/L (98-107) 12/17/20 04:25 Carbon Dioxide 31 mmol/L (22-30) H 12/17/20 04:25 Anion Gap 12 mmol/L 12/17/20 04:25 BUN 30 mg/dL (9-20) H 12/17/20 04:25 Creatinine 1.6 mg/dL (0.8-1.3) H 12/17/20 04:25 Estimated GFR 58 ml/min 12/17/20 04:25 BUN/Creatinine Ratio 19 % 12/17/20 04:25 Glucose 143 mg/dL (75-100) H 12/17/20 04:25 POC Glucose 128 mg/dL (70-105) H 12/16/20 20:29 Calcium 8.4 mg/dL (8.4-10.2) 12/17/20 04:25 Phosphorus 3.70 mg/dL (2.5-4.5) 12/16/20 05:17 Total Bilirubin 1.50 mg/dL (0.1-1.2) H 12/14/20 20:20 AST 64 units/L (5-40) H 12/14/20 20:20 ALT 98 units/L (7-56) H 12/14/20 20:20 Alkaline Phosphatase 90 units/L (35-129) 12/14/20 20:20 Total Creatine Kinase 196 units/L (55-170) H 12/15/20 05:53 CK-MB (CK-2) 4.2 ng/mL (0.0-4.0) H 12/15/20 05:53 CK-MB (CK-2) Rel Index 2.1 (0-4) 12/15/20 05:53 Troponin T < 0.010 ng/mL (0.00-0.029) 12/15/20 05:53 NT-Pro-B Natriuret Pep 5010 pg/mL (0-450) H 12/14/20 20:20 Total Protein 5.9 g/dL (6.3-8.2) L 12/14/20 20:20 Albumin 3.4 g/dL (3.9-5) L 12/14/20 20:20 Albumin/Globulin Ratio 1.4 % 12/14/20 20:20 Urine Eosinophils None seen (None Seen) 12/15/20 15:00 Urine Creatinine 111.7 mg/dL (0.1-20.0) H 12/15/20 15:00 Protein/Creatinin Ratio 0.08 12/15/20 15:00 Urine Sodium 36 mmol/L 12/15/20 15:00 Urine Total Protein 9 mg/dL (5-11.8) 12/15/20 15:00 - Diagnostic Impressions Diagnostic Impressions: Echocardiogram 12/15/20 06:00 Transthoracic Echocardiogram Indication: Dyspnea BP: 111/77 HR: 99 Conclusions *Global left ventricular systolic function is severely decreased. *The estimated ejection fraction is 15-20%. *Severe global hypokinesis of the left ventricle is observed. *The right ventricular global systolic function is moderately reduced. *The right ventricle is slightly dilated. *There is no evidence of aortic regurgitation. *There is trace of mitral regurgitation. *There is mild tricuspid regurgitation. *The right ventricular systolic pressure is calculated at 44 mmHg. *There is mild pulmonic regurgitation. Findings Left Ventricle: The left ventricular chamber size is severely dilated. There is no left ventricular hypertrophy. Severe global hypokinesis of the left ventricle is observed. Global left ventricular systolic function is severely decreased. The estimated ejection fraction is 15-20%. Abnormal left ventricular diastolic function is observed.Indeterminate Left Atrium: The left atrium is severely dilated. Right Ventricle: The right ventricle is slightly dilated. The right ventricular global systolic function is moderately reduced. Right Atrium: The right atrium is moderately dilated. Aortic Valve: There is no evidence of aortic valve thickening. There is no evidence of aortic regurgitation. Mitral Valve: The mitral valve leaflets are mildly thickened. There is trace of mitral regurgitation. Tricuspid Valve: The tricuspid valve leaflets are normal. There is mild tricuspid regurgitation. The right ventricular systolic pressure is calculated at 44 mmHg. Pulmonic Valve: There is no evidence of pulmonic valve thickening. There is mild pulmonic regurgitation. Pericardium: There is no pericardial effusion. Aorta: The aorta appears normal. Venous: The inferior vena cava is dilated. There is less than 50% respiratory change in the inferior vena cava dimension. Measurements Chambers 2D Name Value Normal Range IVSd (2D) 0.83 cm (0.6 - 1.1) LVPWd (2D) 1.07 cm (0.6 - 1.1) LVIDd (2D) 7.33 cm (3.7 - 5.6) LVIDs (2D) 6.5 cm (2 - 3.8) LV FS (2D) 11.39 % - EF Teichholz (2D) 23.9 % - Ao root diameter (2D) 3.41 cm (2 - 3.7) Volumes/Mass Name Value Normal Range LA ESV SP 4CH (A/L) 83.93 ml - LA ESV SP 2CH (A/L) 174.81 ml - LA ESV BP (A/L) 123.97 ml - LA ESV BP (A/L) index 53.21 ml/m2 - LA ESV SP 4CH (MOD) 81.21 ml - LA ESV SP 2CH (MOD) 173.61 ml - LA ESV BP (MOD) 121.23 ml - LA ESV BP (MOD) index 52.03 ml/m2 - Aortic Valve Name Value Normal Range AV Vmax 0.74 m/sec - AV VTI 10.62 cm - AV peak gradient 2.2 mmHg - AV mean gradient 1.16 mmHg - LVOT diameter 2.2 cm - LVOT Vmax 0.77 m/sec - LVOT VTI 10.14 cm - LVOT peak gradient 2.35 mmHg - LVOT mean gradient 1.21 mmHg - SV LVOT 38.54 ml - JAIRO (continuity Vmax) 3.93 cm2 - JAIRO (continuity VTI) 3.63 cm2 - Mitral Valve Name Value Normal Range MV PHT 63.87 msec - MVA (PHT) 3.44 cm2 - Tricuspid Valve Name Value Normal Range TR Vmax 2.69 m/sec - TR peak gradient 29 mmHg - RAP 15 mmHg - RVSP 44 mmHg - IVC diameter 2.63 cm (1.2 - 2.3) Pulmonic Valve/Qp:Qs Name Value Normal Range PV Vmax 0.58 m/sec - PV peak gradient 1.32 mmHg - SC end-diastolic Vmax 1.55 m/sec - PV acceleration time 72.31 msec - Smith/IV: Voiding Method Urinal Active Medications - Current Medications Current Medications: Generic Name Dose Route Start Last Admin Trade Name Freq PRN Reason Stop Dose Admin Acetaminophen 650 mg 12/14/20 23:15 Acetaminophen 325 Mg Tab PO Q4H PRN Fever >101 Aspirin 81 mg 12/16/20 15:00 12/16/20 17:00 Aspirin Ec 81 Mg Tab PO 81 mg QDAY IJEOMA Administration Atorvastatin Calcium 40 mg 12/16/20 22:00 12/16/20 22:46 Atorvastatin 40 Mg Tab PO 40 mg QHS IJEOMA Administration Carvedilol 6.25 mg 12/15/20 22:00 12/16/20 22:46 Carvedilol 6.25 Mg Tab PO 6.25 mg BID IJEOMA Administration Dextrose 0 ml 12/14/20 23:17 Dextrose 50% In Water (25gm) 50 Ml Syringe IV Q30MIN PRN Hypoglycemia Protocol Folic Acid 1 mg 12/16/20 15:00 12/16/20 17:00 Folic Acid 1 Mg Tab PO 1 mg QDAY IJEOMA Administration Furosemide 40 mg 12/15/20 10:00 12/16/20 09:08 Furosemide 40 Mg/4 Ml Inj IV 40 mg QDAY IJEOMA Administration Heparin Sodium (Porcine) 5,000 unit 12/15/20 02:30 12/16/20 22:46 Heparin 5,000 Unit/1 Ml Vial SUB-Q 5,000 unit Q12HR IJEOMA Administration Insulin Human Regular 0 units 12/15/20 07:30 12/16/20 17:00 Insulin Regular, Human 100 Units/1 Ml SUB-Q Not Given AC [facility] Protocol Insulin Human Regular 0 units 12/15/20 22:00 12/16/20 22:47 Insulin Regular, Human 100 Units/1 Ml SUB-Q Not Given QHS [facility] Protocol Nitroglycerin 0.5 inch 12/15/20 06:00 12/16/20 17:30 Nitroglycerin 2% Oint 1 Gm TP Not Given QIDNTG [facility] Protocol Thiamine HCl 100 mg 12/16/20 15:00 12/16/20 17:00 Thiamine 100 Mg Tab PO 100 mg QDAY IJEOMA Administration Nutrition/Malnutrition Assess - Dietary Evaluation Nutrition/Malnutrition Findings: Nutrition Notes Start: 12/16/20 11:27 Freq: Status: Active Protocol: Document 12/16/20 11:27 AT (Rec: 12/16/20 11:41 AT [id number]) Co-Sign 12/16/20 11:27 CW Nutrition Notes Need for Assessment generated from: MD Order,Education Initial or Follow up Brief Note Current Diagnosis Acute Kidney Injury,Diabetes, Hypertension,Heart Failure, Hyperlipidemia Other Pertinent Diagnosis Coronary Artery Disease, Cardiomyopathy Current Diet Cardiac/Consistent CHO Subjective/Other Information Consult for diet education. Pt has been consuming 100% of meals. Discussed heart failure diet with patient, need for low sodium, and fluid restriction. Upon further assessment, pt is non- compliant with heart heathly diet habits. Pt was open to discussion and asked for additional literature on Cardiac/Consistent CHO diet. #2 Nutrition Diagnosis Food and nutrition-related knowledge deficit Etiology Diabetes As Evidenced by Signs and Symptoms no previous education on Diabetes Nutrition Therapy #1 Nutrition Diagnosis Limited adherence to nutrition -related recommendations Etiology Congestive Heart Failure As Evidenced by Signs and Symptoms large volumes of fluid and diet history of processed foods Nutrition Intervention Teaching Recipient Patient Learning Readiness Good Teaching Methods Discussion,Handout Response to Teaching Verbalize understanding Education Handouts Provided Heart Failure Nutrition Therapy, Carbohydrate Counting for People with Diabetes, and Fluid Restriction Barriers to Learning No Barriers RD phone number provided Yes Patient aware of follow up options Yes Goal #1 Diet adherence to Cardiac/ Consistent CHO diet with fluid restriction Revisit per MD consult or patient Sign Off request:
[2020-12-17] MEDS: INSULIN REGULAR, HUMAN 100 UNITS/1 ML SUB-Q SCH ×4 (09:20→21:45)
[2020-12-17] MEDS: carvediloL 6.25 MG TAB PO SCH ×2 (09:42→22:17)
[2020-12-17] MEDS: HEPARIN 5,000 UNIT/1 ML VIAL SUB-Q SCH ×2 (09:43→22:15)
[2020-12-17] MEDS: NITROGLYCERIN 2% OINT 1 GM TP SCH (09:43)
[2020-12-17] MEDS: THIAMINE 100 MG TAB PO SCH (09:44)
[2020-12-17] MEDS: FOLIC ACID 1 MG TAB PO SCH (09:44)
[2020-12-17] MEDS: FUROSEMIDE 40 MG/4 ML INJ IV SCH (09:44)
[2020-12-17] MEDS: ASPIRIN EC 81 MG TAB PO SCH (09:45)
--- NOTE | 2020-12-17 10:04 | Progress Note ---
Assessment and Plan Assessment: (Principal Admitting Problem)-CHF Exacerbation Acute Renal Failure in setting of diuretics, may have CKD Hypertension Diabetes Mellitus Plan: Renal labs reviewed. Serum creatinine 1.6 today, yesterday's was 1.6, stable Labs in [id number] showed serum creatinine 1.1-1.3 Renal ultrasound-No Hydronephrosis Urine lytes reviewed. No significant proteinuria. No urine eosinophils. Echocardiogram- EF 15-20% On Lasix 40 mg IV daily Avoid nephrotoxins Obtain daily weights Strict I/O's daily Continue to monitor renal function closely Subjective Date of service: 12/17/20 Principal diagnosis: HF Interval history: Patient seen in room. Reviewed renal plan of care. Objective - Vital Signs Vital signs: Vital Signs - 12hr 12/16/20 12/16/20 12/17/20 22:46 23:00 00:02 Temperature 97.7 F Pulse Rate 96 H 97 H 96 H Respiratory 20 Rate Blood Pressure 108/78 103/70 O2 Sat by Pulse 91 Oximetry 12/17/20 12/17/20 12/17/20 04:45 08:05 09:42 Temperature 97.5 F L 97.8 F Pulse Rate 87 98 H 93 H Respiratory 20 20 Rate Blood Pressure 112/79 124/79 99/64 O2 Sat by Pulse 89 97 Oximetry 12/17/20 09:43 Temperature Pulse Rate 93 H Respiratory Rate Blood Pressure 99/64 O2 Sat by Pulse Oximetry - General Appearance General appearance: well-developed, appears stated age, fatigue EENT: ATNC, PERRL, hearing intact, vision intact Neck: no JVD, supple Respiratory: Present: Decreased Breath Sounds Cardiology: S1S2 Gastrointestinal: normoactive bowel sounds Integumentary: warm and dry Neurologic: alert and oriented x3 Musculoskeletal: joint swelling - Lab 12/14/20 20:20 12/17/20 04:25 Most recent lab results Calcium 8.4 mg/dL (8.4-10.2) 12/17/20 04:25 Phosphorus 3.70 mg/dL (2.5-4.5) 12/16/20 05:17 Urine Creatinine 111.7 mg/dL (0.1-20.0) H 12/15/20 15:00 Urine Sodium 36 mmol/L 12/15/20 15:00 Urine Total Protein 9 mg/dL (5-11.8) 12/15/20 15:00 Medications & Allergies - Medications Allergies/Adverse Reactions: Allergies No Known Allergies Allergy (Verified 07/14/17 10:18) Home Medications: Home Medications Medication Instructions Recorded Confirmed Last Taken Type Aspirin EC [Ecotrin] 325 mg PO NOW #30 tablet 07/02/19 12/14/20 Unknown Rx Metoprolol [Lopressor TAB] 25 mg PO BID #60 tablet 07/02/19 12/14/20 Unknown Rx Multivitamin Tab [Multiple Vitamin 1 each PO QDAY #30 tablet 07/02/19 12/14/20 Unknown Rx TAB (Theragran)] Thiamine [Vitamin B-1] 100 mg PO QDAY #30 tablet 07/02/19 12/14/20 Unknown Rx amLODIPine 10 mg PO DAILY 30 Days #30 tab 07/02/19 12/14/20 Unknown Rx lisinopriL [Zestril TAB] 20 mg PO QDAY #30 tablet 07/02/19 12/14/20 Unknown Rx Losartan [Cozaar] 100 mg PO QDAY #30 tablet 10/06/19 12/14/20 Unknown Rx carvediloL [Coreg] 6.25 mg PO BID #60 tablet 10/06/19 12/14/20 Unknown Rx hydroCHLOROthiazide [HCTZ] 25 mg PO QDAY #30 tablet 10/06/19 12/14/20 Unknown Rx metFORMIN [Glucophage] 500 mg PO BID #60 tablet 10/06/19 12/14/20 Unknown Rx Furosemide [Lasix TAB] 40 mg PO QDAY #30 tablet 01/31/20 12/14/20 Unknown Rx glipiZIDE [Glucotrol] 5 mg PO BID #60 tablet 03/28/20 12/14/20 Unknown Rx metFORMIN [Glucophage] 850 mg PO BID #60 tablet 03/28/20 12/14/20 Unknown Rx Furosemide [Lasix TAB] 40 mg PO QDAY #30 tablet 11/13/20 12/14/20 Unknown Rx Active Medications: Generic Name Dose Route Start Last Admin Trade Name Freq PRN Reason Stop Dose Admin Acetaminophen 650 mg 12/14/20 23:15 Acetaminophen 325 Mg Tab PO Q4H PRN Fever >101 Aspirin 81 mg 12/16/20 15:00 12/17/20 09:45 Aspirin Ec 81 Mg Tab PO 81 mg QDAY IJEOMA Administration Atorvastatin Calcium 40 mg 12/16/20 22:00 12/16/20 22:46 Atorvastatin 40 Mg Tab PO 40 mg QHS IJEOMA Administration Carvedilol 6.25 mg 12/15/20 22:00 12/17/20 09:42 Carvedilol 6.25 Mg Tab PO Not Given BID IJEOMA Dextrose 0 ml 12/14/20 23:17 Dextrose 50% In Water (25gm) 50 Ml Syringe IV Q30MIN PRN Hypoglycemia Protocol Folic Acid 1 mg 12/16/20 15:00 12/17/20 09:44 Folic Acid 1 Mg Tab PO 1 mg QDAY IJEOMA Administration Furosemide 40 mg 12/15/20 10:00 12/17/20 09:44 Furosemide 40 Mg/4 Ml Inj IV 40 mg QDAY IJEOMA Administration Heparin Sodium (Porcine) 5,000 unit 12/15/20 02:30 12/17/20 09:43 Heparin 5,000 Unit/1 Ml Vial SUB-Q 5,000 unit Q12HR IJEOMA Administration Insulin Human Regular 0 units 12/15/20 07:30 12/17/20 09:20 Insulin Regular, Human 100 Units/1 Ml SUB-Q Not Given AC [facility] Protocol Insulin Human Regular 0 units 12/15/20 22:00 12/16/20 22:47 Insulin Regular, Human 100 Units/1 Ml SUB-Q Not Given QHS [facility] Protocol Nitroglycerin 0.5 inch 12/15/20 06:00 12/17/20 09:43 Nitroglycerin 2% Oint 1 Gm TP Not Given QIDNTG [facility] Protocol Thiamine HCl 100 mg 12/16/20 15:00 12/17/20 09:44 Thiamine 100 Mg Tab PO 100 mg QDAY IJEOMA Administration
--- NOTE | 2020-12-17 11:19 | Consultation ---
History of Present Illness Consult date: 12/17/20 Past History Past Medical History: CAD, diabetes, heart failure, hypertension, hyperlipidemia, other (SLEEP APNEA) Past Surgical History: Other (CARDIAC STENT) Social history: no significant social history Family history: no significant family history Medications and Allergies Allergies Allergy/AdvReac Type Severity Reaction Status Date / Time No Known Allergies Allergy Verified 07/14/17 10:18 Home Medications Medication Instructions Recorded Confirmed Last Taken Type Aspirin EC [Ecotrin] 325 mg PO NOW #30 tablet 07/02/19 12/14/20 Unknown Rx Metoprolol [Lopressor TAB] 25 mg PO BID #60 tablet 07/02/19 12/14/20 Unknown Rx Multivitamin Tab [Multiple Vitamin 1 each PO QDAY #30 tablet 07/02/19 12/14/20 Unknown Rx TAB (Theragran)] Thiamine [Vitamin B-1] 100 mg PO QDAY #30 tablet 07/02/19 12/14/20 Unknown Rx amLODIPine 10 mg PO DAILY 30 Days #30 tab 07/02/19 12/14/20 Unknown Rx lisinopriL [Zestril TAB] 20 mg PO QDAY #30 tablet 07/02/19 12/14/20 Unknown Rx Losartan [Cozaar] 100 mg PO QDAY #30 tablet 10/06/19 12/14/20 Unknown Rx carvediloL [Coreg] 6.25 mg PO BID #60 tablet 10/06/19 12/14/20 Unknown Rx hydroCHLOROthiazide [HCTZ] 25 mg PO QDAY #30 tablet 10/06/19 12/14/20 Unknown Rx metFORMIN [Glucophage] 500 mg PO BID #60 tablet 10/06/19 12/14/20 Unknown Rx Furosemide [Lasix TAB] 40 mg PO QDAY #30 tablet 01/31/20 12/14/20 Unknown Rx glipiZIDE [Glucotrol] 5 mg PO BID #60 tablet 03/28/20 12/14/20 Unknown Rx metFORMIN [Glucophage] 850 mg PO BID #60 tablet 03/28/20 12/14/20 Unknown Rx Furosemide [Lasix TAB] 40 mg PO QDAY #30 tablet 11/13/20 12/14/20 Unknown Rx Active Meds: Active Medications Acetaminophen (Acetaminophen 325 Mg Tab) 650 mg PO Q4H PRN PRN Reason: Fever >101 Aspirin (Aspirin Ec 81 Mg Tab) 81 mg PO QDAY [facility] Last Admin: 12/17/20 09:45 Dose: 81 mg Documented by: Atorvastatin Calcium (Atorvastatin 40 Mg Tab) 40 mg PO QHS [facility] Last Admin: 12/16/20 22:46 Dose: 40 mg Documented by: Carvedilol (Carvedilol 6.25 Mg Tab) 6.25 mg PO BID [facility] Last Admin: 12/17/20 09:42 Dose: Not Given Documented by: Dextrose (Dextrose 50% In Water (25gm) 50 Ml Syringe) 0 ml IV Q30MIN PRN; Protocol PRN Reason: Hypoglycemia Folic Acid (Folic Acid 1 Mg Tab) 1 mg PO QDAY [facility] Last Admin: 12/17/20 09:44 Dose: 1 mg Documented by: Furosemide (Furosemide 40 Mg/4 Ml Inj) 40 mg IV QDAY [facility] Last Admin: 12/17/20 09:44 Dose: 40 mg Documented by: Heparin Sodium (Porcine) (Heparin 5,000 Unit/1 Ml Vial) 5,000 unit SUB-Q Q12HR [facility] Last Admin: 12/17/20 09:43 Dose: 5,000 unit Documented by: Insulin Human Regular (Insulin Regular, Human 100 Units/1 Ml) 0 units SUB-Q [facility]; Protocol Last Admin: 12/17/20 09:20 Dose: Not Given Documented by: Insulin Human Regular (Insulin Regular, Human 100 Units/1 Ml) 0 units SUB-Q QHS [facility]; Protocol Last Admin: 12/16/20 22:47 Dose: Not Given Documented by: Nitroglycerin (Nitroglycerin 2% Oint 1 Gm) 0.5 inch TP QIDNTG [facility]; Protocol Last Admin: 12/17/20 09:43 Dose: Not Given Documented by: Thiamine HCl (Thiamine 100 Mg Tab) 100 mg PO QDAY [facility] Last Admin: 12/17/20 09:44 Dose: 100 mg Documented by: Physical Examination Vital Signs Pulse Resp BP Pulse Ox 99 H 16 117/81 97 12/14/20 20:09 12/14/20 20:09 12/14/20 20:09 12/14/20 20:09 Results 12/14/20 20:20 12/17/20 04:25 Comprehensive Metabolic Panel 12/17/20 Range/Units 04:25 Sodium 141 (137-145) mmol/L Potassium 3.8 (3.6-5.0) mmol/L Chloride 101.7 (98-107) mmol/L Carbon Dioxide 31 H (22-30) mmol/L BUN 30 H (9-20) mg/dL Creatinine 1.6 H (0.8-1.3) mg/dL Glucose 143 H (75-100) mg/dL Calcium 8.4 (8.4-10.2) mg/dL Assessment and Plan - Patient Problems (1) Acute HFrEF (heart failure with reduced ejection fraction) Current Visit: Yes Status: Chronic (2) Nonischemic cardiomyopathy Current Visit: Yes Status: Chronic (3) DAVID (acute kidney injury) Current Visit: Yes Status: Acute (4) HTN (hypertension) Current Visit: Yes Status: Chronic (5) Diabetes mellitus Current Visit: Yes Status: Chronic (6) HLD (hyperlipidemia) Current Visit: Yes Status: Chronic (7) DIANN (obstructive sleep apnea) Current Visit: No Status: Chronic (8) Uncontrolled hypertension Current Visit: No Status: Chronic (9) Sleep apnea Current Visit: No Status: Suspected
--- NOTE | 2020-12-17 11:25 | Progress Note ---
Assessment and Plan Pt appears to be clinically improving. Continue present cardiac regimen. No ACEI/ARB at this time in setting of renal insufficiency. F/u BMP in AM. Pt has h/o LifeVest placement - LifeVest was returned to [facility] due to noncompliance with OP follow up. Anticipate d/c tomorrow. Will follow. The patient has been seen in conjunction with Dr. Tyler who agrees with the assessment and plan of care. - Patient Problems (1) Acute on chronic HFrEF (heart failure with reduced ejection fraction) Current Visit: Yes Status: Acute (2) Nonischemic cardiomyopathy Current Visit: Yes Status: Chronic (3) Normal coronary arteries Current Visit: Yes Status: Chronic (4) Uncontrolled hypertension Current Visit: Yes Status: Chronic (5) DAVID (acute kidney injury) Current Visit: Yes Status: Acute (6) Diabetes mellitus Current Visit: Yes Status: Chronic (7) Sleep apnea Current Visit: Yes Status: Chronic (8) Tobacco use Current Visit: Yes Status: Chronic (9) History of ETOH abuse Current Visit: Yes Status: Chronic (10) Medical noncompliance Current Visit: Yes Status: Chronic - Patient Problems (1) Acute HFrEF (heart failure with reduced ejection fraction) Current Visit: Yes Status: Chronic (2) Nonischemic cardiomyopathy Current Visit: Yes Status: Chronic (3) DAVID (acute kidney injury) Current Visit: Yes Status: Acute (4) HTN (hypertension) Current Visit: Yes Status: Chronic (5) Diabetes mellitus Current Visit: Yes Status: Chronic (6) HLD (hyperlipidemia) Current Visit: Yes Status: Chronic (7) DIANN (obstructive sleep apnea) Current Visit: No Status: Chronic (8) Uncontrolled hypertension Current Visit: No Status: Chronic (9) Sleep apnea Current Visit: No Status: Suspected Subjective Date of service: 12/17/20 Principal diagnosis: Heart Failure reduced Ejection Fraction Interval history: Patient is resting comfortably, sitting up in bed. No new cardiac complaints. Alert and oriented. Tele reviewed: Sinus Tach, HR 103. Objective Last Vital Signs Temp 97.8 F 12/17/20 08:05 Pulse 93 H 12/17/20 09:43 Resp 20 12/17/20 08:05 BP 99/64 12/17/20 09:43 Pulse Ox 97 12/17/20 08:05 - Physical Examination General: No Apparent Distress HEENT: Positive: PERRL, Normocephaly, Mucus Membranes Moist Neck: Positive: neck supple, trachea midline Cardiac: Positive: Reg Rate and Rhythm, S1/S2 Lungs: Positive: clear to auscultation, Normal Breath Sounds Neuro: Positive: Grossly Intact Abdomen: Positive: Unremarkable Skin: Negative: Rash, Wound Musculoskeletal: No Pain Extremities: Present: upper extr. pulses, lower extr. pulses, +1 Edema - Labs and Meds Comprehensive Metabolic Panel 12/17/20 Range/Units 04:25 Sodium 141 (137-145) mmol/L Potassium 3.8 (3.6-5.0) mmol/L Chloride 101.7 (98-107) mmol/L Carbon Dioxide 31 H (22-30) mmol/L BUN 30 H (9-20) mg/dL Creatinine 1.6 H (0.8-1.3) mg/dL Glucose 143 H (75-100) mg/dL Calcium 8.4 (8.4-10.2) mg/dL - Imaging and Cardiology EKG: report reviewed, image reviewed Echo: report reviewed (EF 15-20%, Severe global hypokinesis of left ventricle. Trace MR. Mild TR. RVSP 44 mmHg.) - Telemetry EKG Rhythm: Sinus Tachycardia - EKG Sinus rhythms and dysrhythmias: sinus rhythm AV and intraventricular conduction: left bundle branch block (Unchanged from previous ECG)
[2020-12-18 05:49] LABS: Hematocrit 41.7 % (35.5-45.6); Hemoglobin 13.7 gm/dl (11.8-15.2); Mean Corpuscular HGB Conc 33 % (32-34); Mean Corpuscular Volume 99 fl (84-94); Platelet Count 145 K/mm3 (140-440); Red Blood Count 4.24 M/mm3 (3.65-5.03); Red Cell Distribution Width 15.6 % (13.2-15.2)
[2020-12-18] MEDS ORDERED: FUROSEMIDE 40 MG TAB PO SCH ×2 (06:00→14:00)
[2020-12-18 06:06] LABS: BUN/Creatinine Ratio 19; Blood Urea Nitrogen 27 mg/dL (9-20); Calcium 8.2 mg/dL (8.4-10.2); Hemolysis Index 42
[2020-12-18] MEDS: NITROGLYCERIN 2% OINT 1 GM TP SCH (07:34)
[2020-12-18 09:15] VITALS: BP 114/84
[2020-12-18] MEDS: ASPIRIN EC 81 MG TAB PO SCH (10:34)
[2020-12-18] MEDS: FOLIC ACID 1 MG TAB PO SCH (10:34)
[2020-12-18] MEDS: THIAMINE 100 MG TAB PO SCH (10:35)
[2020-12-18] MEDS: HEPARIN 5,000 UNIT/1 ML VIAL SUB-Q SCH (10:35)
[2020-12-18] MEDS: carvediloL 6.25 MG TAB PO SCH (10:35)
[2020-12-18] MEDS: INSULIN REGULAR, HUMAN 100 UNITS/1 ML SUB-Q SCH ×2 (10:37→12:37)
--- NOTE | 2020-12-18 11:41 | Discharge Summary ---
Providers - Providers Date of Admission: 12/14/20 22:07 Date of discharge: 12/18/20 Attending physician: SUNIL PANCHAL MD 12/15/20 02:19 Consult to Physician [CONS] Routine Comment: Consulting Provider: EVERARDO OG Physician Instructions: Reason For Exam: DAVID 12/15/20 13:44 Consult to Physician [CONS] Routine Comment: Consulting Provider: WESTLEY BARBER Physician Instructions: Reason For Exam: CHF 12/16/20 08:00 Consult to Dietitian/Nutrition [CONS] Routine Physician Instructions: Reason For Exam: Noncompliant with CHF Diet Reason for Consult: Diet education Primary care physician: CRIMINAL INVESTIGATOR Hospitalization Reason for admission: sob. Acute on chronic HFrEF (heart failure with reduced ejection fraction Condition: Stable Hospital course: 40-year-old male who said he has been having shortness of breath going on for about 2 to 3 days , patient said the symptom progressed to the level of dyspnea on exertion and there is an associated ankle edema. Patient also noticed chest tightness with deep breathing but denied history of fever or chills and denied history of nausea or vomiting. Acute HFrEF (heart failure with reduced ejection fraction) Cont. Telemetry, Echo revealed left ventricular chamber size moderately dilated with systolic function severely decreased and EF of 15-20%. Cardiology following Continue diuretics. Patient may need life vest --DIANN (obstructive sleep apnea) Supplemental oxygen, nebulizer therapy, NIPPV as clinically indicated, Chest x ray. --EtOH dependence thiamine, folic acid, multivitamin daily, --Nicotine dependence smoking cessation counseling +15 minutes, supportive care. --Obesity (BMI 30.0-34.9) Balanced diet, increased physical activity at discharge, --DAVID, continue to monitor BMP, consulted nephrology --Diabetes mellitus --Nonischemic cardiomyopathy --Medical noncompliance counseling provided. --DVT prophylaxis SCD to BLE while in bed. Daily course: 12/15: cont iv diuresis, follow ins/os. Patient may need LifeVest on discharge, cardiology following. Monitor BMP, consult nephrology 12/16: Increase IV diuresis to twice a day with Lasix 40 mg IV. Continue to monitor ins and O's. Follow cardiology recommendation. Monitor renal function. 12/17: Creatinine showing some mild improvement. We will continue current management ARB held at this time. Will monitor diurese for additional 1 day ensure renal stability. Discussed with cardiology patient can be discharged tomorrow on 40 mg of Lasix p.o.twice daily. Will recommend to continue to hold ARB and CONSTANTINO inhibitors until renal function improves this will also require follow-up with nephrology outpatient. 12/18/20 patient is seen and examined. Patient was admitted to the hospital with shortness of breath and acute systolic CHF. Echo shows left ventricular chamber size is severely dilated. Severe global hypokinesia of the left ventricle. EF of 15 to 20%. Chest x-ray shows mild congestive heart failure. During hospitalization patient is treated with IV Lasix 40 mg IV every 12 hours. Patient was also treated with fluid restriction. Coreg 6.25 mg p.o. twice daily. We will hold the CONSTANTINO inhibitor because of renal insufficiency. Patient also seen and evaluated by cardiology. Under proper treatment management patient is now improved. Patient denied any chest pain or shortness of breath. Cardiology cleared the patient for discharge and change the Lasix to 40 mg p.o. twice a day. Patient advised to eat low-salt 1800 kcal ADA diet and and follow-up with cardiology as well as nephrology as outpatient in 1 to 2 weeks. Patient also counseled regarding quit drinking and follow-up with primary care in 1 weeks. Condition at the time of discharge is stable. Disposition: -01 TO HOME OR SELFCARE Time spent for discharge: 30 - Discharge Diagnoses (1) DAVID (acute kidney injury) Status: Acute Comment: continue to monitor BMP, avoid nephrotoxic drug. Hold CONSTANTINO inhibitor. Outpatient follow-up with nephrology in 1 to 2 weeks (2) Acute exacerbation of CHF (congestive heart failure) Status: Acute Comment: Echo revealed left ventricular chamber size moderately dilated with systolic function severely decreased and EF of 15-20%. Outpatient follow-up with cardiology in 1 to 2 weeks Continue diuretics Lasix 40 mg p.o. every 12 hours. Patient may need life vest (3) Acute HFrEF (heart failure with reduced ejection fraction) Status: Chronic Comment: severely decreased and EF of 15-20%. Outpatient follow-up with cardiology in 1 to 2 weeks Continue diuretics Lasix 40 mg p.o. every 12 hours. Patient may need life vest (4) Diabetes mellitus Status: Chronic Comment: We put the patient on 1800 kcal ADA diet. We will continue the home oral diabetic medication Metformin 500 mg p.o. twice daily (5) HLD (hyperlipidemia) Status: Chronic Comment: Patient is on Lipitor 40 mg p.o. nightly (6) HTN (hypertension) Status: Chronic Comment: We will continue the amlodipine 10 mg p.o. daily and Coreg 6.25 mg p.o. twice daily. Patient advised to eat low-salt diet. Follow- up with primary care and cardiology as outpatient in 1 to 2 weeks (7) Nonischemic cardiomyopathy Status: Chronic Comment: Echo revealed left ventricular chamber size moderately dilated with systolic function severely decreased and EF of 15-20%. Outpatient follow-up with cardiology in 1 to 2 weeks Continue diuretics Lasix 40 mg p.o. every 12 hours. Coreg 6.25 mg p.o. twice daily. Lipitor 40 mg p.o. nightly Patient may need life vest Core Measure Documentation - Heart Failure Discharge Requirements CONSTANTINO/ARB for LVSD if EF <40%: No (renal failure) Reason for no CONSTANTINO/ARB: Renal impairment (renal failure) Beta carlos at discharge: Yes Exam - Constitutional Vitals: Temp Pulse Resp BP Pulse Ox 97.7 F 82 18 114/84 100 12/18/20 08:02 12/18/20 08:02 12/18/20 08:02 12/18/20 08:02 12/18/20 08:02 General appearance: Present: no acute distress, well-nourished - EENT Eyes: Present: PERRL ENT: hearing intact, clear oral mucosa - Neck Neck: Present: supple, normal ROM - Respiratory Respiratory effort: normal Respiratory: bilateral: diminished - Cardiovascular Heart Sounds: Present: S1 & S2. Absent: rub, click - Extremities Extremities: pulses symmetrical, No edema Peripheral Pulses: within normal limits - Abdominal General gastrointestinal: Present: soft, non-tender, non-distended, normal bowel sounds Male genitourinary: Present: normal - Integumentary Integumentary: Present: clear, warm, dry - Musculoskeletal Musculoskeletal: gait normal, strength equal bilaterally - Psychiatric Psychiatric: appropriate mood/affect, intact judgment & insight - Neurologic Neurologic: CNII-XII intact, moves all extremities Plan Activity: advance as tolerated Diet: low cholesterol, low salt, diabetic, renal Special Instructions: restrict fluid intake to, record daily weights Additional Instructions: Continue medication as prescribed. Eat low salt 1800 kcal diabetic diet and follow-up with cardiology and nephrology as outpatient in 1 to 2 weeks Follow up with: WESTLEY BARBER MD [Staff Physician] - 7 Days Forms: Work/School Release Form Prescriptions: AtorvaSTATin [Lipitor] 40 mg PO QHS #60 tablet amLODIPine 10 mg PO DAILY 30 Days #30 tab carvediloL [Coreg] 6.25 mg PO BID #60 tablet Aspirin EC [Ecotrin] 325 mg PO NOW #30 tablet Folic Acid [Folvite] 1 mg PO QDAY #30 tablet metFORMIN [Glucophage] 500 mg PO BID #60 tablet glipiZIDE [Glucotrol] 5 mg PO BID #60 tablet Furosemide [Lasix TAB] 40 mg PO 0600,1800 #100 tablet Multivitamin Tab [Multiple Vitamin TAB (Theragran)] 1 each PO QDAY #30 tablet Thiamine [Vitamin B-1] 100 mg PO QDAY #60 tablet
--- NOTE | 2020-12-18 13:21 | Progress Note ---
Assessment and Plan (Principal Admitting Problem)-CHF Exacerbation Acute Renal Failure in setting of diuretics, may have CKD Hypertension Diabetes Mellitus Plan: Cr cont to improve increase lasix to 40 mg TID Labs in [id number] showed serum creatinine 1.1-1.3 Renal ultrasound-No Hydronephrosis Echocardiogram- EF 15-20% On Lasix 40 mg IV daily Avoid nephrotoxins Obtain daily weights Strict I/O's daily Continue to monitor renal function closely Subjective Date of service: 12/18/20 Principal diagnosis: Heart Failure reduced Ejection Fraction Interval history: denies acute issues, cont to have swelling Objective - Vital Signs Vital signs: Vital Signs - 12hr 12/18/20 12/18/20 12/18/20 04:47 08:02 12:00 Temperature 97.7 F 97.7 F Pulse Rate 88 82 88 Respiratory 18 18 Rate Blood Pressure 125/93 114/84 O2 Sat by Pulse 98 100 Oximetry - General Appearance General appearance: well-developed, well-nourished EENT: ATNC, PERRL, mucous membranes moist Neck: no JVD, no carotid bruit Respiratory: Present: Clear to Ascultation Cardiology: regular, S1S2 Gastrointestinal: normoactive bowel sounds Integumentary: no rash, warm and dry Neurologic: no focal deficit, no asterixis, alert and oriented x3 Musculoskeletal: other (2-3+ pitting edema in BLE) - Lab 12/18/20 04:58 12/18/20 04:58 Most recent lab results Calcium 8.2 mg/dL (8.4-10.2) L 12/18/20 04:58 Phosphorus 3.70 mg/dL (2.5-4.5) 12/16/20 05:17 Urine Creatinine 111.7 mg/dL (0.1-20.0) H 12/15/20 15:00 Urine Sodium 36 mmol/L 12/15/20 15:00 Urine Total Protein 9 mg/dL (5-11.8) 12/15/20 15:00 Medications & Allergies - Medications Allergies/Adverse Reactions: Allergies No Known Allergies Allergy (Verified 07/14/17 10:18) Home Medications: Home Medications Medication Instructions Recorded Confirmed Last Taken Type Thiamine [Vitamin B-1] 100 mg PO QDAY #30 tablet 07/02/19 12/14/20 Unknown Rx metFORMIN [Glucophage] 850 mg PO BID #60 tablet 03/28/20 12/14/20 Unknown Rx Aspirin EC [Ecotrin] 325 mg PO NOW #30 tablet 12/18/20 Unknown Rx AtorvaSTATin [Lipitor] 40 mg PO QHS #60 tablet 12/18/20 Unknown Rx Folic Acid [Folvite] 1 mg PO QDAY #30 tablet 12/18/20 Unknown Rx Furosemide [Lasix TAB] 40 mg PO 0600,1800 #100 tablet 12/18/20 Unknown Rx Multivitamin Tab [Multiple Vitamin 1 each PO QDAY #30 tablet 12/18/20 Unknown Rx TAB (Theragran)] Thiamine [Vitamin B-1] 100 mg PO QDAY #60 tablet 12/18/20 Unknown Rx amLODIPine 10 mg PO DAILY 30 Days #30 tab 12/18/20 Unknown Rx carvediloL [Coreg] 6.25 mg PO BID #60 tablet 12/18/20 Unknown Rx glipiZIDE [Glucotrol] 5 mg PO BID #60 tablet 12/18/20 Unknown Rx metFORMIN [Glucophage] 500 mg PO BID #60 tablet 12/18/20 Unknown Rx Active Medications: Generic Name Dose Route Start Last Admin Trade Name Freq PRN Reason Stop Dose Admin Acetaminophen 650 mg 12/14/20 23:15 Acetaminophen 325 Mg Tab PO Q4H PRN Fever >101 Aspirin 81 mg 12/16/20 15:00 12/18/20 10:34 Aspirin Ec 81 Mg Tab PO 81 mg QDAY IJEOMA Administration Atorvastatin Calcium 40 mg 12/16/20 22:00 12/17/20 22:17 Atorvastatin 40 Mg Tab PO 40 mg QHS IJEOMA Administration Carvedilol 6.25 mg 12/15/20 22:00 12/18/20 10:35 Carvedilol 6.25 Mg Tab PO 6.25 mg BID IJEOMA Administration Dextrose 0 ml 12/14/20 23:17 Dextrose 50% In Water (25gm) 50 Ml Syringe IV Q30MIN PRN Hypoglycemia Protocol Folic Acid 1 mg 12/16/20 15:00 12/18/20 10:34 Folic Acid 1 Mg Tab PO 1 mg QDAY IJEOMA Administration Furosemide 40 mg 12/18/20 14:00 Furosemide 40 Mg Tab PO TID [facility] Heparin Sodium (Porcine) 5,000 unit 12/15/20 02:30 12/18/20 10:35 Heparin 5,000 Unit/1 Ml Vial SUB-Q 5,000 unit Q12HR IJEOMA Administration Insulin Human Regular 0 units 12/15/20 07:30 12/18/20 12:37 Insulin Regular, Human 100 Units/1 Ml SUB-Q 2 units AC IJEOMA Administration Protocol Insulin Human Regular 0 units 12/15/20 22:00 12/17/20 21:45 Insulin Regular, Human 100 Units/1 Ml SUB-Q Not Given QHS [facility] Protocol Thiamine HCl 100 mg 12/16/20 15:00 12/18/20 10:35 Thiamine 100 Mg Tab PO 100 mg QDAY IJEOMA Administration
== END 2020-12-18 16:10 | disposition home or self-care (01) | DRG 682 ==
LOC: ED 19:40 → 4A 22:07
PROVIDERS: ADMIT Internal Medicine; ATTEND Hospitalist
DX: N17.9 Acute kidney failure, unspecified (principal); I50.23 Acute on chronic systolic (congestive) heart failure; J96.00 Acute respiratory failure, unspecified whether with hypoxia or hypercapnia; I42.8 Other cardiomyopathies; I13.0 Hypertensive heart and chronic kidney disease with heart failure and stage 1 through stage 4 chronic kidney disease, or unspecified chronic kidney disease; F10.20 Alcohol dependence, uncomplicated; G47.33 Obstructive sleep apnea (adult) (pediatric); E66.9 Obesity, unspecified; E78.5 Hyperlipidemia, unspecified; F17.200 Nicotine dependence, unspecified, uncomplicated; N18.9 Chronic kidney disease, unspecified; E11.22 Type 2 diabetes mellitus with diabetic chronic kidney disease; I25.10 Atherosclerotic heart disease of native coronary artery without angina pectoris; Z71.6 Tobacco abuse counseling; Z68.31 Body mass index [BMI] 31.0-31.9, adult; Z91.14 Patient's other noncompliance with medication regimen; Z95.5 Presence of coronary angioplasty implant and graft; Z79.82 Long term (current) use of aspirin; Z79.899 Other long term (current) drug therapy
CPT/HCPCS: 36415; 71046; 76770; 80048; 80053; 82550; 82553; 82570; 82962; 83880; 84100; 84156; 84300; 84484; 85025; 85027; 89050; 93005; 93306; 96374; 96375; G0378; A9270-GY; J1644; J1815; J1940

== ENCOUNTER 2021-01-09 09:25 | Inpatient (IN) | payer OTHER ==
--- NOTE | 2021-01-09 10:13 | Emergency Department Report ---
HPI - General Chief Complaint: Dyspnea/Respdistress Time Seen by Provider: 01/09/21 09:49 - HPI HPI: This is a 40-year-old -[place] male presents to the emergency department with a complaint of a 1 week history of increased swelling to the bilateral lower extremities and upper through the abdomen. The patient denies any shortness of breath at rest but does have some shortness of breath with exertion. He denies any chest pain, fever, cough, nausea, vomiting, back pain or diaphoresis. The patient has a past medical history of CHF, non-insulin- dependent diabetes, hypertension, high cholesterol, coronary artery disease with previous cardiac stents and sleep apnea. The patient says he has not yet received the results from his sleep study about 1 month ago and therefore does not have a CPAP. He denies any tobacco or illicit drug use. The patient does not have any primary care physician, bar host/hostess or collar setter overlock for outpatient follow-up. He says that he is going back up to [place] in 1 month to utilize his Medicaid and see specialist. The patient says he has been compliant with his medications and just was started on lisinopril in the last few days. ED Past Medical Hx - Past Medical History Hx Hypertension: Yes Hx Congestive Heart Failure: Yes Hx Diabetes: Yes Hx Asthma: No Additional medical history: SLEEP APNEA. high cholestrol - Surgical History Additional Surgical History: cardiac stents - Social History Smoking Status: Never Smoker Substance Use Type: None - Medications Home Medications: Home Medications Medication Instructions Recorded Confirmed Last Taken Type AtorvaSTATin [Lipitor] 40 mg PO QHS #60 tablet 12/18/20 01/09/21 1 Day Ago Rx ~01/08/21 Folic Acid [Folvite] 1 mg PO QDAY #30 tablet 12/18/20 01/09/21 1 Day Ago Rx ~01/08/21 Furosemide [Lasix TAB] 40 mg PO 0600,1800 #100 tablet 12/18/20 01/09/21 1 Day Ago Rx ~01/08/21 Thiamine [Vitamin B-1] 100 mg PO QDAY #60 tablet 12/18/20 01/09/21 1 Day Ago Rx ~01/08/21 amLODIPine 10 mg PO DAILY 30 Days #30 tab 12/18/20 01/09/21 1 Day Ago Rx ~01/08/21 carvediloL [Coreg] 6.25 mg PO BID #60 tablet 12/18/20 01/09/21 1 Day Ago Rx ~01/08/21 glipiZIDE [Glucotrol] 5 mg PO BID #60 tablet 12/18/20 01/09/21 1 Day Ago Rx ~01/08/21 metFORMIN [Glucophage] 500 mg PO BID #60 tablet 12/18/20 01/09/21 1 Day Ago Rx ~01/08/21 ED Review of Systems ROS: Stated complaint: SWOLLEN LEGS/FEET Other details as noted in HPI Comment: All other systems reviewed and negative Constitutional: denies: chills, fever Eyes: denies: eye pain, vision change ENT: denies: ear pain, throat pain Respiratory: SOB with exertion. denies: cough, shortness of breath Cardiovascular: edema. denies: chest pain Gastrointestinal: denies: abdominal pain, vomiting Genitourinary: denies: dysuria, discharge Musculoskeletal: denies: back pain, arthralgia Skin: denies: rash, lesions Neurological: denies: headache, weakness Physical Exam - Physical Exam Vital Signs: Vital Signs 01/09/21 09:33 Temperature 97.6 F Pulse Rate 70 Respiratory 24 Rate Blood Pressure 149/127 [Right] O2 Sat by Pulse 96 Oximetry Physical Exam: GENERAL: The patient is well-developed well-nourished. HENT: Normocephalic. Atraumatic. Patient has moist mucous membranes. EYES: Extraocular motions are intact. NECK: Supple. Trachea is midline. CHEST/LUNGS: Clear to auscultation. There is no respiratory distress noted. HEART/CARDIOVASCULAR: Regular. There is no tachycardia. There is no murmur. ABDOMEN: Abdomen is soft, nontender. Patient has normal bowel sounds. SKIN: Skin is warm and dry. There is 3-4+ pitting edema to the bilateral lower extremities. There is also nonpitting swelling to the abdomen. NEURO: The patient is awake, alert, and oriented. The patient is cooperative. The patient has no focal neurologic deficits. Normal speech. MUSCULOSKELETAL: There is no tenderness or deformity. There is no limitation range of motion. ED Course Vital Signs 01/09/21 09:33 Temperature 97.6 F Pulse Rate 70 Respiratory 24 Rate Blood Pressure 149/127 [Right] O2 Sat by Pulse 96 Oximetry - Consultations Consultation #1: 01/09/21 12:[address] Tyler, collar setter overlock with [facility] cardiology, who saw the patient 1 month ago for previous CHF exacerbation. Dr. Tyler recommends that the patient be admitted to the hospital and placed on a dobutamine drip at 2.5 mg for 48 hours, and to continue Lasix 40 mg twice daily, and to discontinue any CONSTANTINO inhibitor for now. ED Medical Decision Making - Lab Data Result diagrams: 01/09/21 10:41 01/09/21 10:41 - EKG Data -: EKG Interpreted by Me EKG shows normal: sinus rhythm, axis (Left axis deviation), intervals, QRS complexes (LBBB, Q waves to the septal leads), ST-T waves Rate: tachycardia (110 bpm) - EKG Data When compared to previous EKG there are: no significant change Interpretation: unchanged when compared t (12/14/20) - Radiology Data Radiology results: image reviewed interpreted by me: Chest x-ray was interpreted by me. Chest x-ray shows cardiomegaly and pulmonary vascular congestion. No obvious pneumonia. No pneumothorax. - Medical Decision Making This patient presents with a 1 week history of progressively worsening swelling to the bilateral lower extremities and up through his abdomen. He also has shortness of breath with exertion. Chest x-ray shows cardiomegaly and pulmonary vascular congestion. Patient's labs are mostly unremarkable except for an elevated BNP consistent with CHF. With the peripheral edema, exertional dyspnea, chest x-ray, and proBNP level, the patient appears to have an acute CHF exacerbation. I spoke with cardiology who recommends placing the patient on a dobutamine drip at 2.5 mg for 48 hours and continuing his Lasix twice daily. Cardiology consultation has been placed. Patient was presented to the hospitalist, Dr. Villela, for admission. Critical Care Time: No Critical care attestation.: If time is entered above; I have spent that time in minutes in the direct care of this critically ill patient, excluding procedure time. ED Disposition Clinical Impression: Nonischemic cardiomyopathy, Acute exacerbation of CHF (congestive heart failure) Disposition: OP ADMIT IP TO THIS HOSP Is pt being admited?: Yes Condition: Serious Time of Disposition: 12:29
--- NOTE | 2021-01-09 10:41 | XRay Report ---
CHEST 1 VIEW INDICATION / CLINICAL INFORMATION: SOB. Bilateral leg swelling COMPARISON: 12/14/2020 FINDINGS: SUPPORT DEVICES: None. HEART / MEDIASTINUM: Cardiac silhouette remains markedly enlarged but unchanged from most recent ches t radiograph. LUNGS / PLEURA: There is mild pulmonary vascular congestion/pulmonary venous hypertension but no over t interstitial pulmonary edema. The lungs are otherwise grossly clear. Please note the left lung base is poorly visualized due to obscuration from the enlarged cardiac silhouette. No pneumothorax. ADDITIONAL FINDINGS: No significant additional findings. IMPRESSION: 1. Overall appearance of the chest radiograph is unchanged compared with most recent exam of . 2. Prominently enlarged cardiac silhouette is stable. 3. Mild pulmonary venous hypertension/pulmonary vascular congestion is unchanged. Signer Name: Nicole Laboy MD Signed: 01/09/2021 10:37 AM Workstation Name: [id number]
[2021-01-09 11:18] LABS: Basophils # (Auto) 0.1 K/mm3 (0.0-0.1); Eosinophils # (Auto) 0.1 K/mm3 (0.0-0.4); Eosinophils % (Auto) 1.1 % (0.0-4.3); Monocytes # (Auto) 0.5 K/mm3 (0.0-0.8); Monocytes % (Auto) 7.1 % (0.0-7.3)
[2021-01-09 11:26] LABS: INR 1.17 (0.87-1.13)
[2021-01-09 11:27] LABS: Basophils % (Auto) 0.8 % (0.0-1.8); Hematocrit 40.8 % (35.5-45.6); Hemoglobin 13.7 gm/dl (11.8-15.2); Lymphocytes # (Auto) 1.6 K/mm3 (1.2-5.4); Lymphocytes % (Auto) 24.4 % (13.4-35.0); Mean Corpuscular HGB Conc 34 % (32-34); Mean Corpuscular Volume 98 fl (84-94); Platelet Count 187 K/mm3 (140-440); Red Blood Count 4.18 M/mm3 (3.65-5.03); Red Cell Distribution Width 14.4 % (13.2-15.2)
[2021-01-09 11:39] LABS: Alanine Aminotransferase 30 units/L (7-56); Albumin 3.1 g/dL (3.9-5); BUN/Creatinine Ratio 14; Blood Urea Nitrogen 18 mg/dL (9-20); Calcium 8.7 mg/dL (8.4-10.2); Hemolysis Index 7
[2021-01-09] MEDS: FUROSEMIDE 40 MG/4 ML INJ IV SCH ×2 (12:34→18:41)
[2021-01-09] MEDS: DOBUTamine/D5W 500 MG/250 ML 500 MG/250 ML BAG IV SCH (12:36)
[2021-01-09] MEDS ORDERED: ALBUTEROL 2.5 MG/3 ML NEBU IH PRN (12:42)
--- NOTE | 2021-01-09 12:42 | History and Physical Report ---
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 Pt states that he has experienced shortness of breath over the past 1week with worsening symptoms over the same timeframe. Pt Acknowledges 15 pound weight gain over the past 1 month, orthopnea/PND, Shortness of Breath, Dypsnea on exertion, Dypsnea at Rest, Decreased exercise tolerance, leg swelling. Pt transported to [facility] via private vehicle. Pt seen and evaluated in the emergency department. All lab and imaging studies reviewed. Patient found to have symptoms consistent with CHF Decompensation, Obesity Hypoventilation Syndrome. Patient treated with supplemental oxygen with concomitant diuretic therapy with mild improvement in symptoms. Pt denies Fever, Chills, CP, Palpitations, NVD, Trauma, Skin Rash, Unilateral leg swelling, Calf pain, Individual/Family History of DVT/PE/Bleeding/Blood Clotting Disorders, Hemoptysis, or recent ill contacts, or known exposure to COVID-19. Prior admission on 06/27/2019 reviewed. All medication listed at time of admission has been reconciled. Cardiology team consulted in ED. Patient admitted to IMCU and initiated on dobutamine drip as per cardiology request. Past History Past Medical History: CAD, heart failure, hypertension, hyperlipidemia Past Surgical History: Other (Cardiac stent placement) Social history: single, smoking, alcohol abuse Family history: diabetes, hypertension Medications and Allergies Allergies Allergy/AdvReac Type Severity Reaction Status Date / Time No Known Allergies Allergy Verified 01/09/21 09:27 Home Medications Medication Instructions Recorded Confirmed Last Taken Type AtorvaSTATin [Lipitor] 40 mg PO QHS #60 tablet 12/18/20 01/09/21 1 Day Ago Rx ~01/08/21 Folic Acid [Folvite] 1 mg PO QDAY #30 tablet 12/18/20 01/09/21 1 Day Ago Rx ~01/08/21 Furosemide [Lasix TAB] 40 mg PO 0600,1800 #100 tablet 12/18/20 01/09/21 1 Day Ago Rx ~01/08/21 Thiamine [Vitamin B-1] 100 mg PO QDAY #60 tablet 12/18/20 01/09/21 1 Day Ago Rx ~01/08/21 amLODIPine 10 mg PO DAILY 30 Days #30 tab 12/18/20 01/09/21 1 Day Ago Rx ~01/08/21 carvediloL [Coreg] 6.25 mg PO BID #60 tablet 12/18/20 01/09/21 1 Day Ago Rx ~01/08/21 glipiZIDE [Glucotrol] 5 mg PO BID #60 tablet 12/18/20 01/09/21 1 Day Ago Rx ~01/08/21 metFORMIN [Glucophage] 500 mg PO BID #60 tablet 12/18/20 01/09/21 1 Day Ago Rx ~01/08/21 Active Meds: Active Medications Furosemide (Furosemide 40 Mg/4 Ml Inj) 40 mg IV 0600,1800 IJEOMA Last Admin: 01/09/21 12:34 Dose: 40 mg Documented by: Dobutamine HCl/Dextrose (Dobutrex Drip 500mg/D5w 250ml) 500 mg in 250 mls @ 9.287 mls/hr IV DIRECT IJEOMA; Protocol Last Admin: 01/09/21 12:36 Dose: 2.5 mcg/kg/min, 9.287 mls/hr Documented by: Review of Systems Constitutional: weight gain, weakness, no fever, no chills, no sweats, no malaise, no lethargy Ears, nose, mouth and throat: no ear pain, no ear discharge, no tinnitis, no decreased hearing, no nasal congestion Cardiovascular: orthopnea, edema, shortness of breath, dyspnea on exertion, paroxysmal nocturnal dyspnea, leg edema, decreased exercise tolerance, no chest pain, no palpitations Respiratory: no cough, no cough with sputum, no hemoptysis Gastrointestinal: no nausea, no vomiting, no diarrhea, no constipation Genitourinary Male: no hematuria, no flank pain, no discharge, no urinary frequency, no urinary hesitancy Rectal: no pain, no incontinence, no bleeding Musculoskeletal: no neck stiffness, no neck pain, no low back pain Integumentary: no rash, no pruritis, no redness, no sores, no jaundice, no boils Neurological: no head injury, no transient paralysis, no paralysis, no parathesias, no tingling, no seizures, no syncope Psychiatric: no anxiety, no memory loss, no change in sleep habits, no sleep disturbances, no insomnia, no change in appetite, no change in libido Endocrine: no cold intolerance, no heat intolerance, no polyphagia, no polydipsia, no polyuria, no excessive sweating Hematologic/Lymphatic: no easy bruising, no easy bleeding, no lymphadenopathy, no lymphedema Allergic/Immunologic: no urticaria, no allergic rhinitis, no wheezing, no anaphylaxis Exam - Constitutional Vitals: Temp Pulse Resp BP Pulse Ox 97.6 F 102 H 22 115/87 92 01/09/21 09:33 01/09/21 12:00 01/09/21 12:00 01/09/21 12:00 01/09/21 12:00 General appearance: Present: mild distress, obese - EENT Eyes: Present: PERRL ENT: hearing intact, clear oral mucosa - Neck Neck: Present: supple, normal ROM - Respiratory Respiratory effort: normal Respiratory: bilateral: diminished, rales - Cardiovascular Heart Sounds: Present: S1 & S2. Absent: rub, click - Extremities Extremities: pulses symmetrical Extremity abnormal: edema Peripheral Pulses: within normal limits - Abdominal General gastrointestinal: Present: soft, non-tender, non-distended, normal bowel sounds Male genitourinary: Present: normal - Integumentary Integumentary: Present: clear, warm, dry - Musculoskeletal Musculoskeletal: gait normal, strength equal bilaterally - Psychiatric Psychiatric: appropriate mood/affect, intact judgment & insight - Neurologic Neurologic: CNII-XII intact, moves all extremities HEART Score - HEART Score Troponin: Troponin T < 0.010 ng/mL (0.00-0.029) 01/09/21 10:41 Results - Labs CBC & Chem 7: 01/09/21 10:41 01/09/21 10:41 Labs: Abnormal lab results 01/09/21 01/09/21 01/09/21 Range/Units 10:41 10:41 10:41 MCV 98 H (84-94) fl MCH 33 H (28-32) pg INR (0.87-1.13) Glucose 110 H (75-100) mg/dL NT-Pro-B Natriuret Pep 3913 H (0-450) pg/mL Total Protein 5.9 L (6.3-8.2) g/dL Albumin 3.1 L (3.9-5) g/dL 01/09/21 Range/Units 10:41 MCV (84-94) fl MCH (28-32) pg INR 1.17 H (0.87-1.13) Glucose (75-100) mg/dL NT-Pro-B Natriuret Pep (0-450) pg/mL Total Protein (6.3-8.2) g/dL Albumin (3.9-5) g/dL Assessment and Plan - Patient Problems (1) Acute exacerbation of CHF (congestive heart failure) Current Visit: Yes Status: Acute Qualifiers: Heart failure type: combined systolic and diastolic Qualified Code(s): I50.43 - Acute on chronic combined systolic (congestive) and diastolic (congestive) heart failure Plan to address problem: Strict I's/O, monitor urine output every shift, daily weight, afterload reduction, blood pressure control, supplemental oxygen, pulse oximetry, diuresis, echocardiogram from November 2020 reviewed. Cardiology team consulted. (2) Hypertension Current Visit: Yes Status: Acute Qualifiers: Hypertension type: essential hypertension Qualified Code(s): I10 - Essential (primary) hypertension Plan to address problem: Monitor blood pressure every shift, continue medical management. (3) Hyperlipidemia Current Visit: Yes Status: Acute Qualifiers: Hyperlipidemia type: mixed hyperlipidemia Qualified Code(s): E78.2 - Mixed hyperlipidemia Plan to address problem: Low-cholesterol diet, statin therapy as clinically indicated, supportive care. (4) Obesity hypoventilation syndrome Current Visit: Yes Status: Acute Plan to address problem: Balanced diet, increase physical activity at discharge, outpatient pulmonary follow-up for sleep study, supplemental oxygen, pulse oximetry. (5) Nicotine dependence Current Visit: Yes Status: Acute Qualifiers: Nicotine product type: cigarettes Substance use status: in withdrawal Qualified Code(s): F17.213 - Nicotine dependence, cigarettes, with withdrawal Plan to address problem: Smoking cessation counseling, supportive care, behavior change counseling, +15 minutes. (6) Diabetes Current Visit: Yes Status: Acute Plan to address problem: Consistent carbohydrate diet, sliding scale insulin therapy, Accu-Chek, hypoglycemia protocol. (7) Alcohol dependence Current Visit: Yes Status: Acute Plan to address problem: CIWA protocol, thiamine, folic acid, multivitamin daily (8) DVT prophylaxis Current Visit: Yes Status: Acute Plan to address problem: SCD to bilateral lower extremities while in bed, patient is ambulatory.
[2021-01-09] MEDS ORDERED: LORazepam 2 MG/ML VIAL IV PRN (17:40)
[2021-01-09] MEDS: carvediloL 6.25 MG TAB PO SCH (23:48)
[2021-01-10 05:02] LABS: Basophils % (Auto) 0.6 % (0.0-1.8); Eosinophils # (Auto) 0.1 K/mm3 (0.0-0.4); Eosinophils % (Auto) 1.6 % (0.0-4.3); Hematocrit 39.2 % (35.5-45.6); Hemoglobin 13.1 gm/dl (11.8-15.2); Lymphocytes # (Auto) 1.6 K/mm3 (1.2-5.4); Lymphocytes % (Auto) 24.1 % (13.4-35.0); Mean Corpuscular HGB Conc 34 % (32-34); Mean Corpuscular Volume 97 fl (84-94); Monocytes # (Auto) 0.5 K/mm3 (0.0-0.8); Monocytes % (Auto) 6.8 % (0.0-7.3); Platelet Count 179 K/mm3 (140-440); Red Blood Count 4.04 M/mm3 (3.65-5.03); Red Cell Distribution Width 14.6 % (13.2-15.2)
[2021-01-10 05:13] LABS: BUN/Creatinine Ratio 11; Blood Urea Nitrogen 16 mg/dL (9-20); Calcium 8.4 mg/dL (8.4-10.2); Hemolysis Index 3
[2021-01-10] MEDS: FUROSEMIDE 40 MG/4 ML INJ IV SCH ×2 (06:20→18:08)
[2021-01-10] MEDS: MULTIVITAMINS ,THERAPEUTIC TAB PO SCH (10:20)
[2021-01-10] MEDS: FOLIC ACID 1 MG TAB PO SCH (10:20)
[2021-01-10] MEDS: carvediloL 6.25 MG TAB PO SCH ×2 (10:20→21:59)
[2021-01-10] MEDS: amLODIPine 10 MG TAB PO SCH (10:21)
[2021-01-10] MEDS: THIAMINE 100 MG TAB PO SCH (10:21)
[2021-01-10] MEDS: DOBUTamine/D5W 500 MG/250 ML 500 MG/250 ML BAG IV SCH (13:06)
--- NOTE | 2021-01-10 13:49 | Consultation ---
History of Present Illness Consult date: 01/10/21 Requesting physician: JEAN-PAUL ALBERT Consult reason: congestive heart failure History of present illness: The patient is a 40 year old male with a past medical history of HFrEF, dilated NICMP EF15-20%, normal coronaries via LHC, prior ETOH abuse, HTN, HLD, DM, DIANN noncompliant with CPAP, former LifeVest use (returned due to order expiration). He has been seen by our practice on multiple prior admissions, noncompliant with OP follow up due to health insurance issues. He presented with c/o progressively worsening BLE swelling, abdominal swelling and SOB for approx 1 week prior to arrival. Pt also reports 15-20lb weight gain over the past several weeks. Pt was discharged from [facility] on 12/18/2020 following eval/management of HFrEF. He reports full compliance with his home medication regimen and fluid restriction since last discharge. He denies any recent ETOH or drug use. He denies any chest pain, palpitations, n/v, diaphoresis, dizziness or syncope. Echo done 12/14/20 showed EF 15-20%, LV severely dilated, RV systolic function mod reduced, RV slightly dilated, mild TR, RVSP 44mmHg. LHC done 06/2019 showed normal coronaries, EF 15-20%. Past History Past Medical History: diabetes, heart failure, hypertension, hyperlipidemia Past Surgical History: Other (Cardiac stent placement) Social history: single, smoking, alcohol abuse (former) Family history: diabetes, hypertension Medications and Allergies Allergies Allergy/AdvReac Type Severity Reaction Status Date / Time No Known Allergies Allergy Verified 01/09/21 09:27 Home Medications Medication Instructions Recorded Confirmed Last Taken Type AtorvaSTATin [Lipitor] 40 mg PO QHS #60 tablet 12/18/20 01/09/21 1 Day Ago Rx ~01/08/21 Folic Acid [Folvite] 1 mg PO QDAY #30 tablet 12/18/20 01/09/21 1 Day Ago Rx ~01/08/21 Furosemide [Lasix TAB] 40 mg PO 0600,1800 #100 tablet 12/18/20 01/09/21 1 Day Ago Rx ~01/08/21 Thiamine [Vitamin B-1] 100 mg PO QDAY #60 tablet 12/18/20 01/09/21 1 Day Ago Rx ~01/08/21 amLODIPine 10 mg PO DAILY 30 Days #30 tab 12/18/20 01/09/21 1 Day Ago Rx ~01/08/21 carvediloL [Coreg] 6.25 mg PO BID #60 tablet 12/18/20 01/09/21 1 Day Ago Rx ~01/08/21 glipiZIDE [Glucotrol] 5 mg PO BID #60 tablet 12/18/20 01/09/21 1 Day Ago Rx ~01/08/21 metFORMIN [Glucophage] 500 mg PO BID #60 tablet 12/18/20 01/09/21 1 Day Ago Rx ~01/08/21 Active Meds: Active Medications Albuterol (Albuterol 2.5 Mg/3 Ml Nebu) 2.5 mg IH Q3H PRN PRN Reason: Shortness Of Breath Amlodipine Besylate (Amlodipine 10 Mg Tab) 10 mg PO DAILY REPLACED BY [facility] Last Admin: 01/10/21 10:21 Dose: 10 mg Documented by: Atorvastatin Calcium (Atorvastatin 40 Mg Tab) 40 mg PO QHS REPLACED BY [facility] Last Admin: 01/09/21 23:49 Dose: 40 mg Documented by: Carvedilol (Carvedilol 6.25 Mg Tab) 6.25 mg PO BID IJEOMA Last Admin: 01/10/21 10:20 Dose: 6.25 mg Documented by: Folic Acid (Folic Acid 1 Mg Tab) 1 mg PO QDAY REPLACED BY [facility] Last Admin: 01/10/21 10:20 Dose: 1 mg Documented by: Furosemide (Furosemide 40 Mg/4 Ml Inj) 40 mg IV 0600,1800 IJEOMA Last Admin: 01/10/21 06:20 Dose: 40 mg Documented by: Dobutamine HCl/Dextrose (Dobutrex Drip 500mg/D5w 250ml) 500 mg in 250 mls @ 9.287 mls/hr IV DIRECT IJEOMA; Protocol Last Admin: 01/10/21 13:06 Dose: 2.5 mcg/kg/min, 9.287 mls/hr Documented by: Lorazepam (Lorazepam 2 Mg/Ml Vial) 2 mg IV Q1HR PRN PRN Reason: CIWA-Ar 8-15 Multivitamins (Multivitamins ,Therapeutic Tab) 1 each PO QDAY REPLACED BY [facility] Last Admin: 01/10/21 10:20 Dose: 1 each Documented by: Sodium Chloride (Sodium Chloride 0.9% 10 Ml Flush Syringe) 10 ml IV BID IJEOMA Last Admin: 01/10/21 10:21 Dose: 10 ml Documented by: Sodium Chloride (Sodium Chloride 0.9% 10 Ml Flush Syringe) 10 ml IV PRN PRN PRN Reason: LINE FLUSH Thiamine HCl (Thiamine 100 Mg Tab) 100 mg PO QDAY REPLACED BY [facility] Last Admin: 01/10/21 10:21 Dose: 100 mg Documented by: Review of Systems Constitutional: weight gain, no fever, no chills, no sweats Ears, nose, mouth and throat: no ear pain, no nose pain, no sinus pressure, no sinus pain Cardiovascular: orthopnea, edema, shortness of breath, dyspnea on exertion, leg edema, decreased exercise tolerance, no chest pain, no palpitations, no rapid/irregular heart beat, no syncope, no lightheadedness Respiratory: shortness of breath, dyspnea on exertion, no cough, no congestion, no wheezing, no pain on inspiration Gastrointestinal: no abdominal pain, no nausea, no vomiting, no diarrhea, no constipation, no change in bowel habits Genitourinary Male: no dysuria, no hematuria, no flank pain, no discharge, no urinary frequency, no urinary hesitancy Musculoskeletal: no neck stiffness, no neck pain, no shooting arm pain, no arm numbness/tingling, no low back pain, no shooting leg pain Integumentary: no rash, no pruritis, no redness, no sores, no wounds Neurological: no head injury, no paralysis, no weakness, no parathesias, no numbness, no tingling, no seizures, no syncope Psychiatric: no anxiety Endocrine: no cold intolerance, no heat intolerance Hematologic/Lymphatic: no easy bruising Allergic/Immunologic: no urticaria Physical Examination Vital Signs Temp Pulse Resp BP Pulse Ox 97.6 F 70 24 149/127 96 01/09/21 09:33 01/09/21 09:33 01/09/21 09:33 01/09/21 09:33 01/09/21 09:33 General appearance: no acute distress HEENT: Positive: PERRL, Normocephaly, Mucus Membranes Moist Neck: Positive: neck supple, trachea midline Cardiac: Positive: Reg Rate and Rhythm, S1/S2 Lungs: Positive: Decreased Breath Sounds Neuro: Positive: Grossly Intact Abdomen: Positive: Distended (swelling noted) Skin: Negative: Rash Musculoskeletal: No Pain Extremities: Present: +3 Edema (BLE) Results 01/10/21 04:31 01/10/21 04:31 CBC 01/10/21 Range/Units 04:31 WBC 6.7 (4.5-11.0) K/mm3 RBC 4.04 (3.65-5.03) M/mm3 Hgb 13.1 (11.8-15.2) gm/dl Hct 39.2 (35.5-45.6) % Plt Count 179 (140-440) K/mm3 Lymph # (Auto) 1.6 (1.2-5.4) K/mm3 [place] # (Auto) 0.5 (0.0-0.8) K/mm3 Eos # (Auto) 0.1 (0.0-0.4) K/mm3 Baso # (Auto) 0.0 (0.0-0.1) K/mm3 Comprehensive Metabolic Panel 01/10/21 Range/Units 04:31 Sodium 141 (137-145) mmol/L Potassium 4.1 (3.6-5.0) mmol/L Chloride 103.6 (98-107) mmol/L Carbon Dioxide 32 H (22-30) mmol/L BUN 16 (9-20) mg/dL Creatinine 1.4 H (0.8-1.3) mg/dL Glucose 149 H (75-100) mg/dL Calcium 8.4 (8.4-10.2) mg/dL - Imaging and Cardiology Echo: report reviewed (12/14/20 showed EF 15-20%, LV severely dilated, RV systolic function mod reduced, RV slightly dilated, mild TR, RVSP 44mmHg. ) Cardiac cath: report reviewed ( 06/2019 showed normal coronaries, EF 15-20%. ) EKG: report reviewed, image reviewed EKG interpretations - Telemetry EKG Rhythm: Sinus Rhythm - EKG Sinus rhythms and dysrhythmias: sinus rhythm AV and intraventricular conduction: intraventricular conducti Assessment and Plan Agree with present cardiac management, including dobutamine gtt @ 2.5mcg/kg/min. Consider addition of ACEI/ARB if renal function will permit. F/u BMP in AM. Pt has h/o LifeVest placement - LifeVest was returned to [facility] due to noncompliance with OP follow up. Will plan to evaluate for AICD candidacy as OP. Will follow. The patient has been seen in conjunction with Dr. Fisher who agrees with the assessment and plan of care. - Patient Problems (1) Acute on chronic HFrEF (heart failure with reduced ejection fraction) Current Visit: Yes Status: Acute (2) Nonischemic cardiomyopathy Current Visit: Yes Status: Chronic (3) Normal coronary arteries Current Visit: Yes Status: Chronic (4) Uncontrolled hypertension Current Visit: Yes Status: Chronic (5) DAVID (acute kidney injury) Current Visit: Yes Status: Acute (6) Diabetes mellitus Current Visit: Yes Status: Chronic (7) Sleep apnea Current Visit: Yes Status: Chronic (8) Tobacco use Current Visit: Yes Status: Chronic (9) History of ETOH abuse Current Visit: Yes Status: Chronic (10) Medical noncompliance Current Visit: Yes Status: Chronic
--- NOTE | 2021-01-11 03:58 | Progress Note ---
Assessment and Plan Assessment and Plan - Patient Problems (1) Acute exacerbation of CHF (congestive heart failure) Current Visit: Yes Status: Acute Qualifiers: Heart failure type: combined systolic and diastolic Qualified Code(s): I50.43 - Acute on chronic combined systolic (congestive) and diastolic (congestive) heart failure Plan to address problem: Strict I's/O, monitor urine output every shift, daily weight, afterload reduction, blood pressure control, supplemental oxygen, pulse oximetry, diuresis, echocardiogram from November 2020 reviewed. Cardiology team consulted. On Dobutamine drip (2) Hypertension Current Visit: Yes Status: Acute Qualifiers: Hypertension type: essential hypertension Qualified Code(s): I10 - Essential (primary) hypertension Plan to address problem: Monitor blood pressure every shift, continue medical management. (3) Hyperlipidemia Current Visit: Yes Status: Acute Qualifiers: Hyperlipidemia type: mixed hyperlipidemia Qualified Code(s): E78.2 - Mixed hyperlipidemia Plan to address problem: Low-cholesterol diet, statin therapy as clinically indicated, supportive care. (4) Obesity hypoventilation syndrome Current Visit: Yes Status: Acute Plan to address problem: Balanced diet, increase physical activity at discharge, outpatient pulmonary follow-up for sleep study, supplemental oxygen, pulse oximetry. (5) Nicotine dependence Current Visit: Yes Status: Acute Qualifiers: Nicotine product type: cigarettes Substance use status: in withdrawal Qualified Code(s): F17.213 - Nicotine dependence, cigarettes, with withdrawal Plan to address problem: Smoking cessation counseling, supportive care, behavior change counseling, +15 minutes. (6) Diabetes Current Visit: Yes Status: Acute Plan to address problem: Consistent carbohydrate diet, sliding scale insulin therapy, Accu-Chek, hypoglycemia protocol. (7) Alcohol dependence Current Visit: Yes Status: Acute Plan to address problem: CIWA protocol, thiamine, folic acid, multivitamin daily (8) DVT prophylaxis Current Visit: Yes Status: Acute Plan to address problem: SCD to bilateral lower extremities while in bed, patient is ambulatory. Subjective Date of service: 01/10/21 Principal diagnosis: CHF exacerbation Interval history: History of present illness: 40 YO Male with HTN, DIANN Noncompliant with CPAP, Nicotine Dependence, ETOH dependence, Combined Systolic CHF and Diastolic CHF(EF 15%), CAD S/P Stent placement, HLD, DM presents to ED for evaluation. Pt states that he has experienced shortness of breath over the past 1week with worsening symptoms over the same timeframe. Pt Acknowledges 15 pound weight gain over the past 1 month, orthopnea/PND, Shortness of Breath, Dypsnea on exertion, Dypsnea at Rest, Decreased exercise tolerance, leg swelling. Pt transported to [facility] via private vehicle. Pt seen and evaluated in the emergency department. All lab and imaging studies reviewed. Patient found to have symptoms consistent with CHF Decompensation, Obesity Hypoventilation Syndrome. Patient treated with supplemental oxygen with concomitant diuretic therapy with mild improvement in symptoms. Pt denies Fever, Chills, CP, Palpitations, NVD, Trauma, Skin Rash, Unilateral leg swelling, Calf pain, Individual/Family History of DVT/PE/Bleeding/Blood Clotting Disorders, Hemoptysis, or recent ill contacts, or known exposure to COVID-19. Prior admission on 06/27/2019 reviewed. All medication listed at time of admission has been reconciled. Cardiology team consulted in ED. Patient admitted to [facility] and initiated on dobutamine drip as per cardiology request. drip 01/09 SOB slightly better On Dobutamine drip Objective - Constitutional Vitals: Vital Signs - 12hr 01/10/21 01/10/21 01/10/21 16:00 16:10 16:20 Temperature Pulse Rate 96 H 96 H 88 Pulse Rate [ From Monitor] Respiratory 18 22 17 Rate Blood Pressure 111/69 111/75 111/75 O2 Sat by Pulse 97 97 96 Oximetry 01/10/21 01/10/21 01/10/21 16:31 16:41 16:51 Temperature Pulse Rate 96 H 91 H 77 Pulse Rate [ From Monitor] Respiratory 29 H 16 19 Rate Blood Pressure 111/75 111/75 O2 Sat by Pulse 95 92 92 Oximetry 01/10/21 01/10/21 01/10/21 17:00 17:11 17:21 Temperature Pulse Rate 74 78 85 Pulse Rate [ From Monitor] Respiratory 21 17 22 Rate Blood Pressure 111/72 111/72 111/72 O2 Sat by Pulse 100 96 95 Oximetry 01/10/21 01/10/21 01/10/21 17:31 17:41 17:51 Temperature Pulse Rate 94 H 101 H 100 H Pulse Rate [ From Monitor] Respiratory 17 22 20 Rate Blood Pressure 111/72 111/72 111/72 O2 Sat by Pulse 99 93 95 Oximetry 0301/10/21 01/10/21 18:01 18:11 18:21 Temperature Pulse Rate 91 H 93 H 95 H Pulse Rate [ From Monitor] Respiratory 22 26 H 14 Rate Blood Pressure 111/50 111/50 111/50 O2 Sat by Pulse 88 94 94 Oximetry 01/10/21 01/10/21 01/10/21 18:31 18:41 18:51 Temperature Pulse Rate 95 H 99 H 101 H Pulse Rate [ From Monitor] Respiratory 24 25 H 23 Rate Blood Pressure 111/50 111/50 111/50 O2 Sat by Pulse 90 86 97 Oximetry 01/10/21 01/10/21 01/10/21 19:01 19:11 19:21 Temperature Pulse Rate 101 H 103 H Pulse Rate [ From Monitor] Respiratory 27 H 16 Rate Blood Pressure 133/91 133/91 133/91 O2 Sat by Pulse 98 97 Oximetry 01/10/21 01/10/21 01/10/21 19:31 19:41 19:51 Temperature Pulse Rate 99 H 102 H 103 H Pulse Rate [ From Monitor] Respiratory 24 21 21 Rate Blood Pressure 133/91 133/91 133/91 O2 Sat by Pulse 95 91 95 Oximetry 01/10/21 01/10/21 01/10/21 20:00 20:01 20:11 Temperature 97.7 F Pulse Rate 102 H 103 H 102 H Pulse Rate [ 102 H From Monitor] Respiratory 23 19 23 Rate Blood Pressure 120/86 120/86 O2 Sat by Pulse 100 92 94 Oximetry 01/10/21 01/10/21 01/10/21 20:21 20:31 20:41 Temperature Pulse Rate 104 H 101 H 105 H Pulse Rate [ From Monitor] Respiratory 18 24 24 Rate Blood Pressure 120/86 120/86 120/86 O2 Sat by Pulse 96 93 96 Oximetry 01/10/21 01/10/21 01/10/21 20:51 21:01 21:11 Temperature Pulse Rate 101 H 99 H 96 H Pulse Rate [ From Monitor] Respiratory 21 21 21 Rate Blood Pressure 120/86 119/68 119/68 O2 Sat by Pulse 95 94 94 Oximetry 01/10/21 01/10/21 01/10/21 21:21 21:31 21:41 Temperature Pulse Rate 100 H 101 H 100 H Pulse Rate [ From Monitor] Respiratory 25 H 30 H 24 Rate Blood Pressure 119/68 119/68 119/68 O2 Sat by Pulse 93 95 95 Oximetry 01/10/21 01/10/21 01/10/21 21:50 21:51 21:59 Temperature Pulse Rate 99 H 99 H Pulse Rate [ From Monitor] Respiratory 22 Rate Blood Pressure 119/68 119/68 O2 Sat by Pulse 94 94 Oximetry 01/10/21 01/10/21 01/10/21 22:00 22:11 22:21 Temperature Pulse Rate 101 H 106 H 95 H Pulse Rate [ From Monitor] Respiratory 25 H 22 25 H Rate Blood Pressure 114/71 114/71 114/71 O2 Sat by Pulse 94 91 Oximetry 01/10/21 01/10/21 01/10/21 22:31 22:41 22:51 Temperature Pulse Rate 100 H 95 H 101 H Pulse Rate [ From Monitor] Respiratory 23 23 23 Rate Blood Pressure 114/71 114/71 114/71 O2 Sat by Pulse 95 93 95 Oximetry 01/10/21 01/10/21 01/10/21 23:00 23:11 23:21 Temperature Pulse Rate 99 H 97 H 99 H Pulse Rate [ From Monitor] Respiratory 22 22 22 Rate Blood Pressure 115/82 115/82 115/82 O2 Sat by Pulse 94 94 92 Oximetry 01/10/21 01/10/21 01/10/21 23:31 23:41 23:51 Temperature Pulse Rate 103 H 101 H 102 H Pulse Rate [ From Monitor] Respiratory 21 23 19 Rate Blood Pressure 115/82 115/82 115/82 O2 Sat by Pulse 93 91 98 Oximetry 01/10/21 01/10/21 01/11/21 23:57 23:59 00:00 Temperature 100.0 F H 97.6 F Pulse Rate 98 H 95 H Pulse Rate [ 93 H From Monitor] Respiratory 23 19 Rate Blood Pressure 115/82 96/73 O2 Sat by Pulse 94 98 Oximetry 01/11/21 01/11/21 01/11/21 00:11 00:21 00:31 Temperature Pulse Rate 94 H 95 H 88 Pulse Rate [ From Monitor] Respiratory 16 18 18 Rate Blood Pressure 96/73 96/73 96/73 O2 Sat by Pulse 97 97 94 Oximetry 01/11/21 01/11/21 01/11/21 00:41 00:51 01:00 Temperature Pulse Rate 97 H 100 H 92 H Pulse Rate [ From Monitor] Respiratory 17 16 18 Rate Blood Pressure 96/73 96/73 94/52 O2 Sat by Pulse 98 100 98 Oximetry 01/11/21 01/11/21 01/11/21 01:11 01:21 01:31 Temperature Pulse Rate 89 88 101 H Pulse Rate [ From Monitor] Respiratory 14 20 12 Rate Blood Pressure 94/52 94/52 94/52 O2 Sat by Pulse 97 100 97 Oximetry 01/11/21 01/11/21 01/11/21 01:41 01:51 02:01 Temperature Pulse Rate 94 H 88 97 H Pulse Rate [ From Monitor] Respiratory 22 20 18 Rate Blood Pressure 94/52 94/52 114/84 O2 Sat by Pulse 97 98 95 Oximetry 01/11/21 02:11 Temperature Pulse Rate 81 Pulse Rate [ From Monitor] Respiratory 19 Rate Blood Pressure 114/84 O2 Sat by Pulse 97 Oximetry General appearance: Present: no acute distress, well-nourished - EENT Eyes: PERRL, EOM intact ENT: hearing intact, clear oral mucosa Ears: bilateral: normal - Neck Neck: supple, normal ROM - Respiratory Respiratory effort: normal Respiratory: bilateral: CTA - Breasts Breasts: normal - Cardiovascular Rhythm: regular Heart Sounds: Present: S1 & S2. Absent: gallop, rub Extremities: pulses intact, No edema, normal color, Full ROM - Gastrointestinal General gastrointestinal: Present: soft, non-tender, non-distended, normal bowel sounds - Genitourinary Male genitourinary: normal - Integumentary Integumentary: clear, warm, dry - Musculoskeletal Musculoskeletal: 1, strength equal bilaterally - Neurologic Neurologic: moves all extremities - Psychiatric Psychiatric: memory intact, appropriate mood/affect, intact judgment & insight - Labs CBC & Chem 7: 01/10/21 04:31 01/10/21 04:31 Labs: Abnormal lab results 01/10/21 01/10/21 01/10/21 Range/Units 04:31 04:31 17:09 MCV 97 H (84-94) fl MCH 33 H (28-32) pg Carbon Dioxide 32 H (22-30) mmol/L Creatinine 1.4 H (0.8-1.3) mg/dL Glucose 149 H (75-100) mg/dL POC Glucose 111 H (70-105) mg/dL 01/10/21 Range/Units 21:26 MCV (84-94) fl MCH (28-32) pg Carbon Dioxide (22-30) mmol/L Creatinine (0.8-1.3) mg/dL Glucose (75-100) mg/dL POC Glucose 170 H (70-105) mg/dL HEART Score - HEART Score Troponin: Troponin T < 0.010 ng/mL (0.00-0.029) 01/09/21 10:41
[2021-01-11] MEDS: FUROSEMIDE 40 MG/4 ML INJ IV SCH ×2 (05:30→18:00)
[2021-01-11 06:22] LABS: BUN/Creatinine Ratio 13; Blood Urea Nitrogen 17 mg/dL (9-20); Calcium 8.6 mg/dL (8.4-10.2); Hemolysis Index 3
[2021-01-11] MEDS: carvediloL 6.25 MG TAB PO SCH ×2 (09:56→22:16)
[2021-01-11] MEDS: THIAMINE 100 MG TAB PO SCH (09:56)
[2021-01-11] MEDS: FOLIC ACID 1 MG TAB PO SCH (09:56)
[2021-01-11] MEDS: MULTIVITAMINS ,THERAPEUTIC TAB PO SCH (09:56)
[2021-01-11] MEDS: amLODIPine 10 MG TAB PO SCH (09:56)
--- NOTE | 2021-01-11 10:55 | Progress Note ---
Assessment and Plan Assessment and plan: -- Ac. On chronic systolic CHF , EF 15 to 20% Current Visit: Yes Status: Acute Plan to address problem: Strict input output monitoring daily weight, fluid restriction Antifailure medications , diuretics , beta-blockers Will add CONSTANTINO inhibitors as renal function improved , supplemental oxygen, dobutamine drip per cardiology --Hypertension Current Visit: Yes Status: Acute Plan to address problem: Moderate control, continue current antihypertensives --Hyperlipidemia Current Visit: Yes Status: Acute Plan to address problem: Stable on low-cholesterol diet and statin therapy --Obesity hypoventilation syndrome Current Visit: Yes Status: Acute Plan to address problem: Patient advised dietary modification exercise as tolerated and weight reduction when medically stable --Nicotine dependence Current Visit: Yes Status: Acute Plan to address problem: Smoking cessation counseling, Nicotine patch as needed --Type II diabetes Current Visit: Yes Status: Acute Plan to address problem: Accu-Chek sliding scale coverage ADA diet Insulin as needed -- Alcohol dependence: Current Visit: Yes Status: Acute Plan to address problem: Counseling strongly advised to quit alcohol intake Advised to seek alcohol rehabilitation And AAA support group --Alcohol withdrawal symptoms Current Visit: Yes Status: Acute Plan to address problem: Initiate CIWA protocol, thiamine, folic acid, multivitamin daily -- DVT prophylaxis Current Visit: Yes Status: Acute Plan to address problem: SCD/ Lovenox Patient is noncompliant with LifeVest Cardiology planning outpatient AICD evaluation upon discharge Strongly encouraged to comply with medications diet follow-up visits Patient verbalized understanding Closely monitor the patient and adjust management as needed Plan of care reviewed with the patient and his nurse History Interval history: I have seen and examined the patient at the bedside this morning in [facility] Patient's chart and medications reviewed patient feels slightly better, Renal function has come back to baseline Will resume CONSTANTINO inhibitors to his regimen Patient has no new complaints Vital signs noted Hospitalist Physical - Constitutional Vitals: Temp Pulse Resp BP Pulse Ox 98.0 F 103 H 19 100/73 83 L 01/11/21 04:00 01/11/21 09:56 01/11/21 09:51 01/11/21 09:56 01/11/21 09:00 General appearance: Present: no acute distress, well-nourished - EENT Eyes: Present: PERRL, EOM intact - Neck Neck: Present: supple, normal ROM - Respiratory Respiratory effort: normal Respiratory: bilateral: diminished, rales, negative: rhonchi, wheezing - Cardiovascular Rhythm: regular Heart Sounds: Present: S1 & S2 - Extremities Extremities: no ischemia Extremity abnormal: edema - Abdominal General gastrointestinal: soft, non-tender, non-distended, normal bowel sounds - Integumentary Integumentary: Present: clear, warm - Psychiatric Psychiatric: appropriate mood/affect, cooperative - Neurologic Neurologic: CNII-XII intact, moves all extremities HEART Score - HEART Score Troponin: Troponin T < 0.010 ng/mL (0.00-0.029) 01/09/21 10:41 Results - Labs CBC & Chem 7: 01/10/21 04:31 01/11/21 04:58 Labs: Laboratory Last Values WBC 6.7 K/mm3 (4.5-11.0) 01/10/21 04:31 RBC 4.04 M/mm3 (3.65-5.03) 01/10/21 04:31 Hgb 13.1 gm/dl (11.8-15.2) 01/10/21 04:31 Hct 39.2 % (35.5-45.6) 01/10/21 04:31 MCV 97 fl (84-94) H 01/10/21 04:31 MCH 33 pg (28-32) H 01/10/21 04:31 MCHC 34 % (32-34) 01/10/21 04:31 RDW 14.6 % (13.2-15.2) 01/10/21 04:31 Plt Count 179 K/mm3 (140-440) 01/10/21 04:31 Lymph % (Auto) 24.1 % (13.4-35.0) 01/10/21 04:31 [place] % (Auto) 6.8 % (0.0-7.3) 01/10/21 04:31 Eos % (Auto) 1.6 % (0.0-4.3) 01/10/21 04:31 Baso % (Auto) 0.6 % (0.0-1.8) 01/10/21 04:31 Lymph # (Auto) 1.6 K/mm3 (1.2-5.4) 01/10/21 04:31 [place] # (Auto) 0.5 K/mm3 (0.0-0.8) 01/10/21 04:31 Eos # (Auto) 0.1 K/mm3 (0.0-0.4) 01/10/21 04:31 Baso # (Auto) 0.0 K/mm3 (0.0-0.1) 01/10/21 04:31 Seg Neutrophils % 66.9 % (40.0-70.0) 01/10/21 04:31 Seg Neutrophils # 4.5 K/mm3 (1.8-7.7) 01/10/21 04:31 PT 14.7 Sec. (12.2-14.9) 01/09/21 10:41 INR 1.17 (0.87-1.13) H 01/09/21 10:41 Sodium 142 mmol/L (137-145) 01/11/21 04:58 Potassium 3.7 mmol/L (3.6-5.0) 01/11/21 04:58 Chloride 104.1 mmol/L (98-107) 01/11/21 04:58 Carbon Dioxide 34 mmol/L (22-30) H 01/11/21 04:58 Anion Gap 8 mmol/L 01/11/21 04:58 BUN 17 mg/dL (9-20) 01/11/21 04:58 Creatinine 1.3 mg/dL (0.8-1.3) 01/11/21 04:58 Estimated GFR > 60 ml/min 01/11/21 04:58 BUN/Creatinine Ratio 13 % 01/11/21 04:58 Glucose 120 mg/dL (75-100) H 01/11/21 04:58 POC Glucose 140 mg/dL (70-105) H 01/11/21 07:43 Calcium 8.6 mg/dL (8.4-10.2) 01/11/21 04:58 Total Bilirubin 0.80 mg/dL (0.1-1.2) 01/09/21 10:41 AST 28 units/L (5-40) 01/09/21 10:41 ALT 30 units/L (7-56) 01/09/21 10:41 Alkaline Phosphatase 50 units/L (35-129) 01/09/21 10:41 Troponin T < 0.010 ng/mL (0.00-0.029) 01/09/21 10:41 NT-Pro-B Natriuret Pep 3913 pg/mL (0-450) H 01/09/21 10:41 Total Protein 5.9 g/dL (6.3-8.2) L 01/09/21 10:41 Albumin 3.1 g/dL (3.9-5) L 01/09/21 10:41 Albumin/Globulin Ratio 1.1 % 01/09/21 10:41 Coronavirus (PCR) Negative (Negative) 01/10/21 Unknown Smith/IV: Voiding Method Urinal Active Medications - Current Medications Current Medications: Generic Name Dose Route Start Last Admin Trade Name Freq PRN Reason Stop Dose Admin Albuterol 2.5 mg 01/09/21 12:42 Albuterol 2.5 Mg/3 Ml Nebu IH Q3H PRN Shortness Of Breath Amlodipine Besylate 10 mg 01/10/21 10:00 01/11/21 09:56 Amlodipine 10 Mg Tab PO 10 mg DAILY IJEOMA Administration Atorvastatin Calcium 40 mg 01/09/21 22:00 01/10/21 22:00 Atorvastatin 40 Mg Tab PO 40 mg QHS IJEOMA Administration Carvedilol 6.25 mg 01/09/21 22:00 01/11/21 09:56 Carvedilol 6.25 Mg Tab PO 6.25 mg BID IJEOMA Administration Folic Acid 1 mg 01/10/21 10:00 01/11/21 09:56 Folic Acid 1 Mg Tab PO 1 mg QDAY IJEOMA Administration Furosemide 40 mg 01/09/21 12:30 01/11/21 05:30 Furosemide 40 Mg/4 Ml Inj IV 40 mg 0600,1800 IJEOMA Administration Dobutamine HCl/Dextrose 500 mg in 250 mls @ 9.287 mls/hr 01/09/21 12:00 13:06 Dobutrex Drip 500mg/D5w 250ml IV 2.5 mcg/kg/min DIRECT IJEOMA 9.287 mls/hr Administration Protocol 2.5 MCG/KG/MIN Lorazepam 2 mg 01/09/21 17:40 Lorazepam 2 Mg/Ml Vial IV Q1HR PRN CIWA-Ar 8-15 Multivitamins 1 each 01/10/21 10:00 01/11/21 09:56 Multivitamins ,Therapeutic Tab PO 1 each QDAY IJEOMA Administration Sodium Chloride 10 ml 01/09/21 22:00 01/11/21 09:57 Sodium Chloride 0.9% 10 Ml Flush Syringe IV 10 ml BID IJEOMA Administration Sodium Chloride 10 ml 01/09/21 12:42 Sodium Chloride 0.9% 10 Ml Flush Syringe IV PRN PRN LINE FLUSH Thiamine HCl 100 mg 01/10/21 10:00 01/11/21 09:56 Thiamine 100 Mg Tab PO 100 mg QDAY IJEOMA Administration Nutrition/Malnutrition Assess - Dietary Evaluation Nutrition/Malnutrition Findings: Nutrition Notes Start: 01/10/21 13:09 Freq: Status: Active Protocol: Document 01/10/21 13:09 CW (Rec: 01/10/21 13:15 CW [id number]) Nutrition Notes 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 Likely r/t dietary chocie. Subjective/Other Information RN screen for skin risk. Parker score of 23. Pt PO intake is excellent at 100% of meals. Per pmhx chart, pt UBW is 114 kg. Weight has increased likelt d/t fluid overload. Burn Absent Trauma Absent GI Symptoms None Food Allergy No Current % PO Good (75-100%) Nutrition Intervention Change Diet Order: Continue Cardiac Diet Anticipated Discharge Needs: Cardiac Diet Revisit per MD consult or patient Sign Off request: Additional Comments S/O excelent PO intake and Parker of 22
--- NOTE | 2021-01-11 12:39 | Progress Note ---
Assessment and Plan Agree with present cardiac management, including dobutamine gtt @ 2.5mcg/kg/min for another 24Hr. Consider addition of ACEI/ARB if renal function will permit. F/u BMP in AM. Pt has h/o LifeVest placement - LifeVest was returned to [facility] due to noncompliance with OP follow up. Will plan to evaluate for AICD candidacy as OP. Will follow. The patient has been seen in conjunction with Dr. Fisher who agrees with the assessment and plan of care. - Patient Problems (1) Acute on chronic HFrEF (heart failure with reduced ejection fraction) Current Visit: Yes Status: Acute (2) Nonischemic cardiomyopathy Current Visit: Yes Status: Chronic (3) Normal coronary arteries Current Visit: Yes Status: Chronic (4) Uncontrolled hypertension Current Visit: Yes Status: Chronic (5) DAVID (acute kidney injury) Current Visit: Yes Status: Acute (6) Diabetes mellitus Current Visit: Yes Status: Chronic (7) Sleep apnea Current Visit: Yes Status: Chronic (8) Tobacco use Current Visit: Yes Status: Chronic (9) History of ETOH abuse Current Visit: Yes Status: Chronic (10) Medical noncompliance Current Visit: Yes Status: Chronic Subjective Date of service: 01/11/21 Principal diagnosis: CHF exacerbation Interval history: pt resting up at bedside, feeling better. tele reviewed - in SR HR 100s. Objective Last Vital Signs Temp 98.0 F 01/11/21 12:00 Pulse 97 H 01/11/21 12:11 Resp 15 01/11/21 12:11 BP 117/80 01/11/21 12:11 Pulse Ox 97 01/11/21 12:11 - Physical Examination General: No Apparent Distress HEENT: Positive: PERRL, Normocephaly, Mucus Membranes Moist Neck: Positive: neck supple, trachea midline Cardiac: Positive: Reg Rate and Rhythm, S1/S2 Lungs: Positive: Decreased Breath Sounds Neuro: Positive: Grossly Intact Abdomen: Positive: Distended (swelling noted) Skin: Negative: Rash Musculoskeletal: No Pain Extremities: Present: +3 Edema (BLE) - Labs and Meds Comprehensive Metabolic Panel 01/11/21 Range/Units 04:58 Sodium 142 (137-145) mmol/L Potassium 3.7 (3.6-5.0) mmol/L Chloride 104.1 (98-107) mmol/L Carbon Dioxide 34 H (22-30) mmol/L BUN 17 (9-20) mg/dL Creatinine 1.3 (0.8-1.3) mg/dL Glucose 120 H (75-100) mg/dL Calcium 8.6 (8.4-10.2) mg/dL - Imaging and Cardiology EKG: report reviewed, image reviewed Echo: report reviewed (12/14/20 showed EF 15-20%, LV severely dilated, RV systolic function mod reduced, RV slightly dilated, mild TR, RVSP 44mmHg. ) Cardiac cath: report reviewed ( 06/2019 showed normal coronaries, EF 15-20%. ) - EKG Sinus rhythms and dysrhythmias: sinus rhythm AV and intraventricular conduction: intraventricular conducti
[2021-01-11] MEDS: DOBUTamine/D5W 500 MG/250 ML 500 MG/250 ML BAG IV SCH (14:08)
[2021-01-11] MEDS: LISINOPRIL 20 MG TAB PO SCH (14:08)
[2021-01-11] MEDS: ENOXAPARIN 40 MG/0.4 ML INJ SUB-Q SCH (22:17)
[2021-01-12 06:00] LABS: BUN/Creatinine Ratio 12; Blood Urea Nitrogen 14 mg/dL (9-20); Calcium 8.1 mg/dL (8.4-10.2); Hemolysis Index 5
[2021-01-12] MEDS: FUROSEMIDE 40 MG/4 ML INJ IV SCH ×2 (06:52→17:46)
[2021-01-12] MEDS: THIAMINE 100 MG TAB PO SCH (09:38)
[2021-01-12] MEDS: LISINOPRIL 20 MG TAB PO SCH (09:38)
[2021-01-12] MEDS: MULTIVITAMINS ,THERAPEUTIC TAB PO SCH (09:38)
[2021-01-12] MEDS: FOLIC ACID 1 MG TAB PO SCH (09:38)
[2021-01-12] MEDS: carvediloL 6.25 MG TAB PO SCH (09:38)
[2021-01-12] MEDS: amLODIPine 10 MG TAB PO SCH (09:38)
--- NOTE | 2021-01-12 10:54 | Progress Note ---
Assessment and Plan Assessment and plan: -- Ac. On chronic systolic CHF , EF 15 to 20% Current Visit: Yes Status: Acute Plan to address problem: Strict input output monitoring daily weight, fluid restriction Antifailure medications , diuretics , beta-blockers Will add CONSTANTINO inhibitors as renal function improved , supplemental oxygen, dobutamine drip per cardiology --Hypertension Current Visit: Yes Status: Acute Plan to address problem: Moderate control, continue current antihypertensives --Hyperlipidemia Current Visit: Yes Status: Acute Plan to address problem: Stable on low-cholesterol diet and statin therapy --Obesity hypoventilation syndrome Current Visit: Yes Status: Acute Plan to address problem: Patient advised dietary modification exercise as tolerated and weight reduction when medically stable --Nicotine dependence Current Visit: Yes Status: Acute Plan to address problem: Smoking cessation counseling, Nicotine patch as needed --Type II diabetes Current Visit: Yes Status: Acute Plan to address problem: Accu-Chek sliding scale coverage ADA diet Insulin as needed -- Alcohol dependence: Current Visit: Yes Status: Acute Plan to address problem: Counseling strongly advised to quit alcohol intake Advised to seek alcohol rehabilitation And AAA support group --Alcohol withdrawal symptoms Current Visit: Yes Status: Acute Plan to address problem: Initiate CIWA protocol, thiamine, folic acid, multivitamin daily -- DVT prophylaxis Current Visit: Yes Status: Acute Plan to address problem: SCD/ Lovenox Patient is noncompliant with LifeVest Cardiology planning outpatient AICD evaluation upon discharge Strongly encouraged to comply with medications diet follow-up visits Patient verbalized understanding Closely monitor the patient and adjust management as needed Plan of care reviewed with the patient and his nurse 01/12/2021; patient is on dobutamine drip, feels slightly better Patient is downgraded to telemetry from [facility], will optimize medication PT evaluation and recommendations Possible discharge in 1 to 2 days if stable and cleared by cardiology History Interval history: I have seen and examined the patient at the bedside Patient's chart and medications reviewed Patient is receiving dobutamine drip Feels slightly better No new complaints Vital signs noted Hospitalist Physical - Constitutional Vitals: Temp Pulse Resp BP Pulse Ox 97.4 F L 105 H 22 129/68 99 01/12/21 08:00 01/12/21 09:38 01/12/21 09:01 01/12/21 09:38 01/12/21 09:17 General appearance: Present: mild distress, well-nourished - EENT Eyes: Present: PERRL, EOM intact - Neck Neck: Present: supple, normal ROM - Respiratory Respiratory effort: normal Respiratory: bilateral: diminished, negative: rales, rhonchi, wheezing - Cardiovascular Rhythm: regular Heart Sounds: Present: S1 & S2 - Extremities Extremities: no ischemia, No edema - Abdominal General gastrointestinal: soft, non-tender, non-distended, normal bowel sounds - Integumentary Integumentary: Present: clear, warm - Psychiatric Psychiatric: appropriate mood/affect, cooperative - Neurologic Neurologic: CNII-XII intact, moves all extremities HEART Score - HEART Score Troponin: Troponin T < 0.010 ng/mL (0.00-0.029) 01/09/21 10:41 Results - Labs CBC & Chem 7: 01/10/21 04:31 01/12/21 05:03 Labs: Laboratory Last Values WBC 6.7 K/mm3 (4.5-11.0) 01/10/21 04:31 RBC 4.04 M/mm3 (3.65-5.03) 01/10/21 04:31 Hgb 13.1 gm/dl (11.8-15.2) 01/10/21 04:31 Hct 39.2 % (35.5-45.6) 01/10/21 04:31 MCV 97 fl (84-94) H 01/10/21 04:31 MCH 33 pg (28-32) H 01/10/21 04:31 MCHC 34 % (32-34) 01/10/21 04:31 RDW 14.6 % (13.2-15.2) 01/10/21 04:31 Plt Count 179 K/mm3 (140-440) 01/10/21 04:31 Lymph % (Auto) 24.1 % (13.4-35.0) 01/10/21 04:31 [place] % (Auto) 6.8 % (0.0-7.3) 01/10/21 04:31 Eos % (Auto) 1.6 % (0.0-4.3) 01/10/21 04:31 Baso % (Auto) 0.6 % (0.0-1.8) 01/10/21 04:31 Lymph # (Auto) 1.6 K/mm3 (1.2-5.4) 01/10/21 04:31 [place] # (Auto) 0.5 K/mm3 (0.0-0.8) 01/10/21 04:31 Eos # (Auto) 0.1 K/mm3 (0.0-0.4) 01/10/21 04:31 Baso # (Auto) 0.0 K/mm3 (0.0-0.1) 01/10/21 04:31 Seg Neutrophils % 66.9 % (40.0-70.0) 01/10/21 04:31 Seg Neutrophils # 4.5 K/mm3 (1.8-7.7) 01/10/21 04:31 PT 14.7 Sec. (12.2-14.9) 01/09/21 10:41 INR 1.17 (0.87-1.13) H 01/09/21 10:41 Sodium 138 mmol/L (137-145) 01/12/21 05:03 Potassium 3.5 mmol/L (3.6-5.0) L 01/12/21 05:03 Chloride 101.6 mmol/L (98-107) 01/12/21 05:03 Carbon Dioxide 30 mmol/L (22-30) 01/12/21 05:03 Anion Gap 10 mmol/L 01/12/21 05:03 BUN 14 mg/dL (9-20) 01/12/21 05:03 Creatinine 1.2 mg/dL (0.8-1.3) 01/12/21 05:03 Estimated GFR > 60 ml/min 01/12/21 05:03 BUN/Creatinine Ratio 12 % 01/12/21 05:03 Glucose 120 mg/dL (75-100) H 01/12/21 05:03 POC Glucose 116 mg/dL (70-105) H 01/12/21 07:27 Calcium 8.1 mg/dL (8.4-10.2) L 01/12/21 05:03 Total Bilirubin 0.80 mg/dL (0.1-1.2) 01/09/21 10:41 AST 28 units/L (5-40) 01/09/21 10:41 ALT 30 units/L (7-56) 01/09/21 10:41 Alkaline Phosphatase 50 units/L (35-129) 01/09/21 10:41 Troponin T < 0.010 ng/mL (0.00-0.029) 01/09/21 10:41 NT-Pro-B Natriuret Pep 3913 pg/mL (0-450) H 01/09/21 10:41 Total Protein 5.9 g/dL (6.3-8.2) L 01/09/21 10:41 Albumin 3.1 g/dL (3.9-5) L 01/09/21 10:41 Albumin/Globulin Ratio 1.1 % 01/09/21 10:41 Coronavirus (PCR) Negative (Negative) 01/10/21 Unknown Smith/IV: Voiding Method Urinal Active Medications - Current Medications Current Medications: Generic Name Dose Route Start Last Admin Trade Name Freq PRN Reason Stop Dose Admin Albuterol 2.5 mg 01/09/21 12:42 Albuterol 2.5 Mg/3 Ml Nebu IH Q3H PRN Shortness Of Breath Amlodipine Besylate 10 mg 01/10/21 10:00 01/12/21 09:38 Amlodipine 10 Mg Tab PO 10 mg DAILY IJEOMA Administration Atorvastatin Calcium 40 mg 01/09/21 22:00 01/11/21 22:16 Atorvastatin 40 Mg Tab PO 40 mg QHS IJEOMA Administration Carvedilol 6.25 mg 01/09/21 22:00 01/12/21 09:38 Carvedilol 6.25 Mg Tab PO 6.25 mg BID IJEOMA Administration Enoxaparin Sodium 40 mg 01/11/21 22:00 01/11/21 22:17 Enoxaparin 40 Mg/0.4 Ml Inj SUB-Q 40 mg QDAY@2200 IJEOMA Administration Protocol Folic Acid 1 mg 01/10/21 10:00 01/12/21 09:38 Folic Acid 1 Mg Tab PO 1 mg QDAY IJEOMA Administration Furosemide 40 mg 01/09/21 12:30 01/12/21 06:52 Furosemide 40 Mg/4 Ml Inj IV 40 mg 0600,1800 IJEOMA Administration Dobutamine HCl/Dextrose 500 mg in 250 mls @ 9.287 mls/hr 01/09/21 12:00 01/11/21 14:08 Dobutrex Drip 500mg/D5w 250ml IV 2.5 mcg/kg/min DIRECT IJEOMA 9.287 mls/hr Administration Protocol 2.5 MCG/KG/MIN Lisinopril 20 mg 01/11/21 14:00 01/12/21 09:38 Lisinopril 20 Mg Tab PO 20 mg QDAY IJEOMA Administration Lorazepam 2 mg 01/09/21 17:40 Lorazepam 2 Mg/Ml Vial IV Q1HR PRN CIWA-Ar 8-15 Multivitamins 1 each 01/10/21 10:00 01/12/21 09:38 Multivitamins ,Therapeutic Tab PO 1 each QDAY IJEOMA Administration Sodium Chloride 10 ml 01/09/21 22:00 01/12/21 09:39 Sodium Chloride 0.9% 10 Ml Flush Syringe IV 10 ml BID IJEOMA Administration Sodium Chloride 10 ml 01/09/21 12:42 Sodium Chloride 0.9% 10 Ml Flush Syringe IV PRN PRN LINE FLUSH Thiamine HCl 100 mg 01/10/21 10:00 01/12/21 09:38 Thiamine 100 Mg Tab PO 100 mg QDAY IJEOMA Administration Nutrition/Malnutrition Assess - Dietary Evaluation Nutrition/Malnutrition Findings: Nutrition Notes Start: 01/10/21 13:09 Freq: Status: Active Protocol: Document 01/10/21 13:09 CW (Rec: 01/10/21 13:15 CW [id number]) Nutrition Notes Need for Assessment generated from: finish patcher Initial or Follow up Brief Note Current Diagnosis Acute Kidney Injury,Diabetes, Sepsis,Hyperlipidemia Current Diet Cardiac Diet Labs/Tests Cr 1.4 BG 249 Pertinent Medications lasix Height 5 ft 11 in Weight 123.831 kg Usual Body Weight 114 kg [place] Body Weight (kg) 78.18 BMI 38.0 Weight change and time frame Wt change noted. Likely r/t dietary chocie. Subjective/Other Information RN screen for skin risk. Parker score of 23. Pt PO intake is excellent at 100% of meals. Per pmhx chart, pt UBW is 114 kg. Weight has increased likelt d/t fluid overload. Burn Absent Trauma Absent GI Symptoms None Food Allergy No Current % PO Good (75-100%) Nutrition Intervention Change Diet Order: Continue Cardiac Diet Anticipated Discharge Needs: Cardiac Diet Revisit per MD consult or patient Sign Off request: Additional Comments S/O excelent PO intake and Parker of 22
--- NOTE | 2021-01-12 12:08 | Progress Note ---
Assessment and Plan Cont present cardiac management, including dobutamine gtt @ 2.5mcg/kg/min for another 24Hr. Cont strict I&Os, fluid restriction and daily weights. Replete K+. F/u BMP in AM. Pt has h/o LifeVest placement - LifeVest was returned to [facility] due to noncompliance with OP follow up. Will plan to evaluate for AICD candidacy as OP. Pt may tx out of IMCU to telemetry from cardiology standpoint. Anticipate d/c on Sunday. The patient has been seen in conjunction with Dr. Fisher who agrees with the assessment and plan of care. - Patient Problems (1) Acute on chronic HFrEF (heart failure with reduced ejection fraction) Current Visit: Yes Status: Acute (2) Nonischemic cardiomyopathy Current Visit: Yes Status: Chronic (3) Normal coronary arteries Current Visit: Yes Status: Chronic (4) Uncontrolled hypertension Current Visit: Yes Status: Chronic (5) DAVID (acute kidney injury) Current Visit: Yes Status: Acute (6) Diabetes mellitus Current Visit: Yes Status: Chronic (7) Sleep apnea Current Visit: Yes Status: Chronic (8) Tobacco use Current Visit: Yes Status: Chronic (9) History of ETOH abuse Current Visit: Yes Status: Chronic (10) Medical noncompliance Current Visit: Yes Status: Chronic Subjective Date of service: 01/12/21 Principal diagnosis: CHF exacerbation Interval history: pt resting in bed, swelling and SOB continue to improve. dobutamine gtt infusing. tele reviewed - in SR HR 70s. Objective Last Vital Signs Temp 97.4 F L 01/12/21 08:00 Pulse 105 H 01/12/21 09:38 Resp 22 01/12/21 09:01 BP 129/68 01/12/21 09:38 Pulse Ox 99 01/12/21 09:17 - Physical Examination General: No Apparent Distress HEENT: Positive: PERRL, Normocephaly, Mucus Membranes Moist Neck: Positive: neck supple, trachea midline Cardiac: Positive: Reg Rate and Rhythm, S1/S2 Lungs: Positive: Decreased Breath Sounds Neuro: Positive: Grossly Intact Abdomen: Positive: Distended (swelling noted) Skin: Negative: Rash Musculoskeletal: No Pain Extremities: Present: +3 Edema (BLE) - Labs and Meds Comprehensive Metabolic Panel 01/12/21 Range/Units 05:03 Sodium 138 (137-145) mmol/L Potassium 3.5 L (3.6-5.0) mmol/L Chloride 101.6 (98-107) mmol/L Carbon Dioxide 30 (22-30) mmol/L BUN 14 (9-20) mg/dL Creatinine 1.2 (0.8-1.3) mg/dL Glucose 120 H (75-100) mg/dL Calcium 8.1 L (8.4-10.2) mg/dL - Imaging and Cardiology EKG: report reviewed, image reviewed Echo: report reviewed (12/14/20 showed EF 15-20%, LV severely dilated, RV systolic function mod reduced, RV slightly dilated, mild TR, RVSP 44mmHg. ) Cardiac cath: report reviewed ( 06/2019 showed normal coronaries, EF 15-20%. ) - EKG Sinus rhythms and dysrhythmias: sinus rhythm AV and intraventricular conduction: intraventricular conducti
[2021-01-12] MEDS ORDERED: POTASSIUM CHLORIDE ER 20 MEQ TAB PO NR ×2 (12:09→16:30)
[2021-01-12] MEDS ORDERED: carvediloL 6.25 MG TAB PO SCH ×2 (12:11→16:30)
[2021-01-12] MEDS ORDERED: carvediloL 12.5 MG TAB PO SCH (12:30)
[2021-01-12] MEDS ORDERED: carvediloL 6.25 MG TAB PO ONE (14:00)
[2021-01-12] MEDS: DOBUTamine/D5W 500 MG/250 ML 500 MG/250 ML BAG IV SCH (19:38)
[2021-01-12] MEDS: ENOXAPARIN 40 MG/0.4 ML INJ SUB-Q SCH (21:02)
[2021-01-12] MEDS: carvediloL 12.5 MG TAB PO SCH (21:02)
[2021-01-13] MEDS: FUROSEMIDE 40 MG/4 ML INJ IV SCH (05:30)
[2021-01-13 07:14] LABS: BUN/Creatinine Ratio 12; Blood Urea Nitrogen 15 mg/dL (9-20); Calcium 8.6 mg/dL (8.4-10.2); Hemolysis Index 1
--- NOTE | 2021-01-13 09:04 | Progress Note ---
Assessment and Plan Assessment and plan: --Hypokalemia; potassium 3.4; Current Visit: Yes Status: Acute Plan to address problem: Supplemented with 30 mEq oral KCl Monitor electrolytes -- Ac. On chronic systolic CHF , EF 15 to 20% Current Visit: Yes Status: Acute Plan to address problem: Patient is on dobutamine drip per cardiology strict input output monitoring daily weight, fluid restriction Antifailure medications , diuretics , beta-blockers Will add CONSTANTINO inhibitors as renal function improved , supplemental oxygen, dobutamine drip per cardiology. Patient has LifeVest however noncompliant Outpatient evaluation for ICD --Hypertension Current Visit: Yes Status: Acute Plan to address problem: Moderate control, continue current antihypertensives --Hyperlipidemia Current Visit: Yes Status: Acute Plan to address problem: Stable on low-cholesterol diet and statin therapy --Obesity hypoventilation syndrome Current Visit: Yes Status: Acute Plan to address problem: Patient advised dietary modification exercise as tolerated and weight reduction when medically stable --Nicotine dependence Current Visit: Yes Status: Acute Plan to address problem: Smoking cessation counseling, Nicotine patch as needed --Type II diabetes Current Visit: Yes Status: Acute Plan to address problem: Accu-Chek sliding scale coverage ADA diet Insulin as needed -- Alcohol dependence: Current Visit: Yes Status: Acute Plan to address problem: Counseling strongly advised to quit alcohol intake Advised to seek alcohol rehabilitation And AAA support group --Alcohol withdrawal symptoms Current Visit: Yes Status: Acute Plan to address problem: Initiate CIWA protocol, thiamine, folic acid, multivitamin daily -- DVT prophylaxis Current Visit: Yes Status: Acute Plan to address problem: SCD/ Lovenox Patient is noncompliant with LifeVest Cardiology planning outpatient AICD evaluation upon discharge Strongly encouraged to comply with medications diet follow-up visits Patient verbalized understanding Closely monitor the patient and adjust management as needed Plan of care reviewed with the patient and his nurse 01/12/2021; patient is on dobutamine drip, feels slightly better Patient is downgraded to telemetry from [facility], will optimize medication PT evaluation and recommendations Possible discharge in 1 to 2 days if stable and cleared by cardiology 01/13/2021; patient completed dobutamine drip per cardiology Optimize medications, mild hypokalemia replace with KCl Cardiology considering ICD placement History Interval history: I have seen and examined the patient at the bedside Patient's chart and medications reviewed Patient feels better no new complaints Completed dobutamine drip Mobitz 2 heart block on the monitor Cardiology considering ICD placement Vital signs noted Hospitalist Physical - Constitutional Vitals: Temp Pulse Resp BP Pulse Ox 97.7 F 78 17 92/61 100 01/13/21 07:43 01/13/21 08:23 01/13/21 08:23 01/13/21 08:23 01/13/21 08:33 General appearance: Present: mild distress, well-nourished, obese - EENT Eyes: Present: PERRL, EOM intact - Neck Neck: Present: supple, normal ROM - Respiratory Respiratory effort: normal Respiratory: bilateral: diminished, negative: rales, rhonchi, wheezing - Cardiovascular Rhythm: regular Heart Sounds: Present: S1 & S2 - Extremities Extremities: no ischemia, No edema - Abdominal General gastrointestinal: soft, non-tender, non-distended, normal bowel sounds - Integumentary Integumentary: Present: clear, warm - Psychiatric Psychiatric: appropriate mood/affect, cooperative - Neurologic Neurologic: CNII-XII intact, moves all extremities HEART Score - HEART Score Troponin: Troponin T < 0.010 ng/mL (0.00-0.029) 01/09/21 10:41 Results - Labs CBC & Chem 7: 01/10/21 04:31 01/13/21 04:00 Labs: Laboratory Last Values WBC 6.7 K/mm3 (4.5-11.0) 01/10/21 04:31 RBC 4.04 M/mm3 (3.65-5.03) 01/10/21 04:31 Hgb 13.1 gm/dl (11.8-15.2) 01/10/21 04:31 Hct 39.2 % (35.5-45.6) 01/10/21 04:31 MCV 97 fl (84-94) H 01/10/21 04:31 MCH 33 pg (28-32) H 01/10/21 04:31 MCHC 34 % (32-34) 01/10/21 04:31 RDW 14.6 % (13.2-15.2) 01/10/21 04:31 Plt Count 179 K/mm3 (140-440) 01/10/21 04:31 Lymph % (Auto) 24.1 % (13.4-35.0) 01/10/21 04:31 [place] % (Auto) 6.8 % (0.0-7.3) 01/10/21 04:31 Eos % (Auto) 1.6 % (0.0-4.3) 01/10/21 04:31 Baso % (Auto) 0.6 % (0.0-1.8) 01/10/21 04:31 Lymph # (Auto) 1.6 K/mm3 (1.2-5.4) 01/10/21 04:31 [place] # (Auto) 0.5 K/mm3 (0.0-0.8) 01/10/21 04:31 Eos # (Auto) 0.1 K/mm3 (0.0-0.4) 01/10/21 04:31 Baso # (Auto) 0.0 K/mm3 (0.0-0.1) 01/10/21 04:31 Seg Neutrophils % 66.9 % (40.0-70.0) 01/10/21 04:31 Seg Neutrophils # 4.5 K/mm3 (1.8-7.7) 01/10/21 04:31 PT 14.7 Sec. (12.2-14.9) 01/09/21 10:41 INR 1.17 (0.87-1.13) H 01/09/21 10:41 Sodium 142 mmol/L (137-145) 01/13/21 04:00 Potassium 3.4 mmol/L (3.6-5.0) L 01/13/21 04:00 Chloride 102.2 mmol/L (98-107) 01/13/21 04:00 Carbon Dioxide 36 mmol/L (22-30) H 01/13/21 04:00 Anion Gap 7 mmol/L 01/13/21 04:00 BUN 15 mg/dL (9-20) 01/13/21 04:00 Creatinine 1.3 mg/dL (0.8-1.3) 01/13/21 04:00 Estimated GFR > 60 ml/min 01/13/21 04:00 BUN/Creatinine Ratio 12 % 01/13/21 04:00 Glucose 129 mg/dL (75-100) H 01/13/21 04:00 POC Glucose 182 mg/dL (70-105) H 01/12/21 20:05 Calcium 8.6 mg/dL (8.4-10.2) 01/13/21 04:00 Magnesium 1.90 mg/dL (1.7-2.3) 01/13/21 04:00 Total Bilirubin 0.80 mg/dL (0.1-1.2) 01/09/21 10:41 AST 28 units/L (5-40) 01/09/21 10:41 ALT 30 units/L (7-56) 01/09/21 10:41 Alkaline Phosphatase 50 units/L (35-129) 01/09/21 10:41 Troponin T < 0.010 ng/mL (0.00-0.029) 01/09/21 10:41 NT-Pro-B Natriuret Pep 3913 pg/mL (0-450) H 01/09/21 10:41 Total Protein 5.9 g/dL (6.3-8.2) L 01/09/21 10:41 Albumin 3.1 g/dL (3.9-5) L 01/09/21 10:41 Albumin/Globulin Ratio 1.1 % 01/09/21 10:41 Coronavirus (PCR) Negative (Negative) 01/10/21 Unknown Smith/IV: Voiding Method Urinal Active Medications - Current Medications Current Medications: Generic Name Dose Route Start Last Admin Trade Name Freq PRN Reason Stop Dose Admin Albuterol 2.5 mg 01/09/21 12:42 Albuterol 2.5 Mg/3 Ml Nebu IH Q3H PRN Shortness Of Breath Atorvastatin Calcium 40 mg 01/09/21 22:00 01/12/21 21:02 Atorvastatin 40 Mg Tab PO 40 mg QHS IJEOMA Administration Carvedilol 12.5 mg 01/12/21 22:00 01/12/21 21:02 Carvedilol 12.5 Mg Tab PO 12.5 mg BID IJEOMA Administration Enoxaparin Sodium 40 mg 01/11/21 22:00 01/12/21 21:02 Enoxaparin 40 Mg/0.4 Ml Inj SUB-Q 40 mg QDAY@2200 IJEOMA Administration Protocol Folic Acid 1 mg 01/10/21 10:00 01/12/21 09:38 Folic Acid 1 Mg Tab PO 1 mg QDAY IJEOMA Administration Furosemide 40 mg 01/09/21 12:30 01/13/21 05:30 Furosemide 40 Mg/4 Ml Inj IV Not Given 0600,1800 IJEOMA Dobutamine HCl/Dextrose 500 mg in 250 mls @ 9.287 mls/hr 01/09/21 12:00 01/12/21 19:38 Dobutrex Drip 500mg/D5w 250ml IV 2.5 mcg/kg/min DIRECT IJEOMA 9.287 mls/hr Administration Protocol 2.5 MCG/KG/MIN Lisinopril 20 mg 01/11/21 14:00 01/12/21 09:38 Lisinopril 20 Mg Tab PO 20 mg QDAY IJEOMA Administration Lorazepam 2 mg 01/09/21 17:40 Lorazepam 2 Mg/Ml Vial IV Q1HR PRN CIWA-Ar 8-15 Multivitamins 1 each 01/10/21 10:00 01/12/21 09:38 Multivitamins ,Therapeutic Tab PO 1 each QDAY IJEOMA Administration Potassium Chloride 30 meq 01/13/21 09:02 Potassium Chloride Er 10 Meq Tab PO 01/13/21 09:03 ONCE ONE Sodium Chloride 10 ml 01/09/21 22:00 01/12/21 21:02 Sodium Chloride 0.9% 10 Ml Flush Syringe IV 10 ml BID IJEOMA Administration Sodium Chloride 10 ml 01/09/21 12:42 Sodium Chloride 0.9% 10 Ml Flush Syringe IV PRN PRN LINE FLUSH Thiamine HCl 100 mg 01/10/21 10:00 01/12/21 09:38 Thiamine 100 Mg Tab PO 100 mg QDAY IJEOMA Administration Nutrition/Malnutrition Assess - Dietary Evaluation Nutrition/Malnutrition Findings: Nutrition Notes Start: 01/10/21 13:09 Freq: Status: Active Protocol: Document 01/10/21 13:09 CW (Rec: 01/10/21 13:15 CW [id number]) Nutrition Notes Need for Assessment generated from: rn pacu Initial or Follow up Brief Note Current Diagnosis Acute Kidney Injury,Diabetes, Sepsis,Hyperlipidemia Current Diet Cardiac Diet Labs/Tests Cr 1.4 BG 249 Pertinent Medications lasix Height 5 ft 11 in Weight 123.831 kg Usual Body Weight 114 kg [place] Body Weight (kg) 78.18 BMI 38.0 Weight change and time frame Wt change noted. Likely r/t dietary chocie. Subjective/Other Information RN screen for skin risk. Parker score of 23. Pt PO intake is excellent at 100% of meals. Per pmhx chart, pt UBW is 114 kg. Weight has increased likelt d/t fluid overload. Burn Absent Trauma Absent GI Symptoms None Food Allergy No Current % PO Good (75-100%) Nutrition Intervention Change Diet Order: Continue Cardiac Diet Anticipated Discharge Needs: Cardiac Diet Revisit per MD consult or patient Sign Off request: Additional Comments S/O excelent PO intake and Parker of 22
[2021-01-13] MEDS: MULTIVITAMINS ,THERAPEUTIC TAB PO SCH (09:28)
[2021-01-13] MEDS: FOLIC ACID 1 MG TAB PO SCH (09:28)
[2021-01-13] MEDS: THIAMINE 100 MG TAB PO SCH (09:28)
[2021-01-13] MEDS ORDERED: POTASSIUM CHLORIDE ER 10 MEQ TAB PO SCH (09:30)
[2021-01-13] MEDS: LISINOPRIL 20 MG TAB PO SCH (09:38)
[2021-01-13] MEDS: carvediloL 12.5 MG TAB PO SCH (09:38)
--- NOTE | 2021-01-13 10:37 | Electrocardiograph Report ---
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
[2021-01-13] MEDS ORDERED: LISINOPRIL 20 MG TAB PO SCH (11:19)
[2021-01-13] MEDS: LISINOPRIL 10 MG TAB PO SCH (11:35)
[2021-01-13] MEDS: SPIRONOLACTONE 25 MG TAB PO SCH (11:42)
--- NOTE | 2021-01-13 11:48 | Progress Note ---
Assessment and Plan Telemetry reviewed: SR rate 97. Episode of Mobitz II 3:1 arrhythmia and several episodes of 2:1 overnight. EP has been consulted for possible AICD. Of note, pt has history of life vest use. Life vest was returned after noncompliance with f/u. Pt reports he has been unable to have his medicaid transferred from [place] to [place]. He reports it is his intent to return to [place] after he is discharged from this hospitalization so he will be able to utilize his [place] medicaid for regular f/u. Discussed assessment and plan of care with patient and he is agreeable to AICD implantation here if medically necessary. Patient has been receiving Coreg- will hold AV chiquita blocking agents at this time in setting of Chaz arrhythmia. Additionally pt has reported hx of DIANN- will initiate PM CPAP as untreated sleep apnea may also be contributing to chaz arrhythmia. Discontinue Dobutamine. Convert lasix to Bumex for more adequate diuresis. Initiate aldactone. Replete potassium. Repeat BMP in AM. Reduce lisinopril dosage in setting of hypotension this AM. Continue to monitor telemetry. Will follow. The patient has been seen in conjunction with Dr. Fisher who agrees with the assessment and plan of care. - Patient Problems (1) Acute on chronic HFrEF (heart failure with reduced ejection fraction) Current Visit: Yes Status: Acute (2) Nonischemic cardiomyopathy Current Visit: Yes Status: Chronic (3) Normal coronary arteries Current Visit: Yes Status: Chronic (4) Uncontrolled hypertension Current Visit: Yes Status: Chronic (5) DAVID (acute kidney injury) Current Visit: Yes Status: Acute (6) Diabetes mellitus Current Visit: Yes Status: Chronic (7) Sleep apnea Current Visit: Yes Status: Chronic (8) Tobacco use Current Visit: Yes Status: Chronic (9) History of ETOH abuse Current Visit: Yes Status: Chronic (10) Medical noncompliance Current Visit: Yes Status: Chronic (11) High Degree AV Block Current Visit: Yes Status: Acute Subjective Date of service: 01/13/21 Principal diagnosis: A/C HFrEF Exacerbation Interval history: Patient is resting in bed comfortably. Telemetry reviewed: SR rate 97. Episode of 2nd AV Block Type II 3:1 and several episodes of 2:1 overnight. Objective Last Vital Signs Temp 97.7 F 01/13/21 07:43 Pulse 61 03/25/21 11:42 Resp 17 01/13/21 08:23 BP 105/73 01/13/21 11:42 Pulse Ox 100 01/13/21 08:33 - Physical Examination General: No Apparent Distress HEENT: Positive: PERRL, Normocephaly, Mucus Membranes Moist Neck: Positive: neck supple, trachea midline Cardiac: Positive: Reg Rate and Rhythm, S1/S2 Lungs: Positive: clear to auscultation, Normal Breath Sounds Neuro: Positive: Grossly Intact Abdomen: Positive: Unremarkable, Distended (swelling noted) Skin: Negative: Rash Musculoskeletal: No Pain Extremities: Present: upper extr. pulses, lower extr. pulses, +3 Edema (BLE) - Labs and Meds Comprehensive Metabolic Panel 01/13/21 Range/Units 04:00 Sodium 142 (137-145) mmol/L Potassium 3.4 L (3.6-5.0) mmol/L Chloride 102.2 (98-107) mmol/L Carbon Dioxide 36 H (22-30) mmol/L BUN 15 (9-20) mg/dL Creatinine 1.3 (0.8-1.3) mg/dL Glucose 129 H (75-100) mg/dL Calcium 8.6 (8.4-10.2) mg/dL - Imaging and Cardiology EKG: report reviewed, image reviewed Echo: report reviewed (12/14/20 showed EF 15-20%, LV severely dilated, RV systolic function mod reduced, RV slightly dilated, mild TR, RVSP 44mmHg. ) Cardiac cath: report reviewed ( 06/2019 showed normal coronaries, EF 15-20%. ) - Telemetry EKG Rhythm: Sinus Rhythm (Episode of Mobitz II 3:1. Several episodes of 2:1) - EKG Sinus rhythms and dysrhythmias: sinus rhythm AV and intraventricular conduction: intraventricular conducti
[2021-01-13] MEDS: BUMETANIDE 1 MG/4 ML INJ IV SCH (17:48)
[2021-01-13] MEDS ORDERED: POTASSIUM CHLORIDE ER 20 MEQ TAB PO ONE (18:00)
[2021-01-13] MEDS: ENOXAPARIN 40 MG/0.4 ML INJ SUB-Q SCH (21:08)
[2021-01-14] MEDS: BUMETANIDE 1 MG/4 ML INJ IV SCH ×2 (05:14→18:02)
[2021-01-14 07:35] LABS: Hemoglobin 14.2 gm/dl (11.8-15.2); Red Blood Count 4.38 M/mm3 (3.65-5.03)
[2021-01-14 07:36] LABS: Hematocrit 42.8 % (35.5-45.6); Mean Corpuscular HGB Conc 33 % (32-34); Mean Corpuscular Volume 98 fl (84-94); Platelet Count 192 K/mm3 (140-440); Red Cell Distribution Width 14.5 % (13.2-15.2)
--- NOTE | 2021-01-14 08:19 | Progress Note ---
Assessment and Plan Assessment and plan: --Chaz.arrhythmia/complete heart block; Mobitz type II heart block on monitor Current Visit: Yes Status: Acute Plan to address problem: Patient was advised LifeVest in the past , however noncompliant in the setting of severe cardiomyopathy and obstructive sleep apnea Cardiology considering ICD placement --Hypokalemia; replenish Current Visit: Yes Status: Acute Plan to address problem: Supplemented with 30 mEq oral KCl Monitor electrolytes -- Ac. On chronic systolic CHF , EF 15 to 20% Current Visit: Yes Status: Acute Plan to address problem: Patient is on dobutamine drip per cardiology strict input output monitoring daily weight, fluid restriction Antifailure medications , diuretics , beta-blockers i Will add CONSTANTINO inhibitors as renal function improved , supplemental oxygen, dobutamine drip per cardiology. Patient has LifeVest however noncompliant Outpatient evaluation for ICD --Hypertension Current Visit: Yes Status: Acute Plan to address problem: Moderate control, continue current antihypertensives --Hyperlipidemia Current Visit: Yes Status: Acute Plan to address problem: Stable on low-cholesterol diet and statin therapy --Obesity hypoventilation syndrome Current Visit: Yes Status: Acute Plan to address problem: Patient advised dietary modification exercise as tolerated and weight reduction when medically stable --Nicotine dependence Current Visit: Yes Status: Acute Plan to address problem: Smoking cessation counseling, Nicotine patch as needed --Type II diabetes Current Visit: Yes Status: Acute Plan to address problem: Accu-Chek sliding scale coverage ADA diet Insulin as needed -- Alcohol dependence: Current Visit: Yes Status: Acute Plan to address problem: Counseling strongly advised to quit alcohol intake Advised to seek alcohol rehabilitation And AAA support group --Alcohol withdrawal symptoms Current Visit: Yes Status: Acute Plan to address problem: Initiate CIWA protocol, thiamine, folic acid, multivitamin daily -- DVT prophylaxis Current Visit: Yes Status: Acute Plan to address problem: SCD/ Lovenox Patient is noncompliant with LifeVest planning outpatient AICD evaluation upon discharge Strongly encouraged to comply with medications diet follow-up visits Patient verbalized understanding Closely monitor the patient and adjust management as needed Plan of care reviewed with the patient and his nurse 01/12/2021; patient is on dobutamine drip, feels slightly better Patient is downgraded to telemetry from [facility], will optimize medication PT evaluation and recommendations Possible discharge in 1 to 2 days if stable and cleared by cardiology 01/13/2021; patient completed dobutamine drip per cardiology Optimize medications, mild hypokalemia replace with KCl Cardiology considering ICD placement 01/14/2021; continue current management. Plans of AICD History Interval history: I have seen and examined the patient at the bedside Patient feels slightly better Awaiting ICD placement, EP cardiology evaluation Vital signs noted Hospitalist Physical - Constitutional Vitals: Temp Pulse Resp BP Pulse Ox 98.0 F 102 H 18 102/71 85 01/14/21 03:25 01/14/21 03:25 01/14/21 03:25 01/14/21 03:25 01/14/21 03:25 General appearance: Present: mild distress, well-nourished, obese - EENT Eyes: Present: PERRL, EOM intact - Neck Neck: Present: supple, normal ROM - Respiratory Respiratory effort: normal, labored Respiratory: bilateral: diminished, rhonchi, negative: rales, wheezing - Cardiovascular Rhythm: regular Heart Sounds: Present: S1 & S2 - Extremities Extremities: no ischemia, pulses intact Extremity abnormal: edema, cyanosis Peripheral Pulses: within normal limits - Abdominal General gastrointestinal: soft, non-tender, non-distended, normal bowel sounds - Integumentary Integumentary: Present: clear, warm - Psychiatric Psychiatric: appropriate mood/affect, cooperative - Neurologic Neurologic: CNII-XII intact, moves all extremities HEART Score - HEART Score Troponin: Troponin T < 0.010 ng/mL (0.00-0.029) 01/09/21 10:41 Results - Labs CBC & Chem 7: 01/14/21 04:11 01/14/21 04:11 Labs: Laboratory Last Values WBC 7.1 K/mm3 (4.5-11.0) 01/14/21 04:11 RBC 4.38 M/mm3 (3.65-5.03) 01/14/21 04:11 Hgb 14.2 gm/dl (11.8-15.2) 01/14/21 04:11 Hct 42.8 % (35.5-45.6) 01/14/21 04:11 MCV 98 fl (84-94) H 01/14/21 04:11 MCH 32 pg (28-32) 01/14/21 04:11 MCHC 33 % (32-34) 01/14/21 04:11 RDW 14.5 % (13.2-15.2) 01/14/21 04:11 Plt Count 192 K/mm3 (140-440) 01/14/21 04:11 Lymph % (Auto) 24.1 % (13.4-35.0) 01/10/21 04:31 Ida % (Auto) 6.8 % (0.0-7.3) 01/10/21 04:31 Eos % (Auto) 1.6 % (0.0-4.3) 01/10/21 04:31 Baso % (Auto) 0.6 % (0.0-1.8) 01/10/21 04:31 Lymph # (Auto) 1.6 K/mm3 (1.2-5.4) 01/10/21 04:31 Ida # (Auto) 0.5 K/mm3 (0.0-0.8) 01/10/21 04:31 Eos # (Auto) 0.1 K/mm3 (0.0-0.4) 01/10/21 04:31 Baso # (Auto) 0.0 K/mm3 (0.0-0.1) 01/10/21 04:31 Seg Neutrophils % 66.9 % (40.0-70.0) 01/10/21 04:31 Seg Neutrophils # 4.5 K/mm3 (1.8-7.7) 01/10/21 04:31 PT 14.7 Sec. (12.2-14.9) 01/09/21 10:41 INR 1.17 (0.87-1.13) H 01/09/21 10:41 Sodium 142 mmol/L (137-145) 01/13/21 04:00 Potassium 3.4 mmol/L (3.6-5.0) L 01/13/21 04:00 Chloride 102.2 mmol/L (98-107) 01/13/21 04:00 Carbon Dioxide 36 mmol/L (22-30) H 01/13/21 04:00 Anion Gap 7 mmol/L 01/13/21 04:00 BUN 15 mg/dL (9-20) 01/13/21 04:00 Creatinine 1.3 mg/dL (0.8-1.3) 01/13/21 04:00 Estimated GFR > 60 ml/min 01/13/21 04:00 BUN/Creatinine Ratio 12 % 01/13/21 04:00 Glucose 129 mg/dL (75-100) H 01/13/21 04:00 POC Glucose 106 mg/dL (70-105) H 01/13/21 20:34 Calcium 8.6 mg/dL (8.4-10.2) 01/13/21 04:00 Magnesium 1.90 mg/dL (1.7-2.3) 01/13/21 04:00 Total Bilirubin 0.80 mg/dL (0.1-1.2) 01/09/21 10:41 AST 28 units/L (5-40) 01/09/21 10:41 ALT 30 units/L (7-56) 01/09/21 10:41 Alkaline Phosphatase 50 units/L (35-129) 01/09/21 10:41 Troponin T < 0.010 ng/mL (0.00-0.029) 01/09/21 10:41 NT-Pro-B Natriuret Pep 3913 pg/mL (0-450) H 01/09/21 10:41 Total Protein 5.9 g/dL (6.3-8.2) L 01/09/21 10:41 Albumin 3.1 g/dL (3.9-5) L 01/09/21 10:41 Albumin/Globulin Ratio 1.1 % 01/09/21 10:41 Coronavirus (PCR) Negative (Negative) 01/10/21 Unknown Smith/IV: Voiding Method Urinal Active Medications - Current Medications Current Medications: Generic Name Dose Route Start Last Admin Trade Name Freq PRN Reason Stop Dose Admin Albuterol 2.5 mg 01/09/21 12:42 Albuterol 2.5 Mg/3 Ml Nebu IH Q3H PRN Shortness Of Breath Atorvastatin Calcium 40 mg 01/09/21 22:00 01/13/21 21:09 Atorvastatin 40 Mg Tab PO 40 mg QHS IJEOMA Administration Bumetanide 1 mg 01/13/21 18:00 01/14/21 05:14 Bumetanide 1 Mg/4 Ml Inj IV 1 mg BID@0600,1800 IJEOMA Administration Enoxaparin Sodium 40 mg 01/11/21 22:00 01/13/21 21:08 Enoxaparin 40 Mg/0.4 Ml Inj SUB-Q 40 mg QDAY@2200 IJEOMA Administration Protocol Folic Acid 1 mg 01/10/21 10:00 01/13/21 09:28 Folic Acid 1 Mg Tab PO 1 mg QDAY IJEOMA Administration Lisinopril 10 mg 01/13/21 12:00 01/13/21 11:35 Lisinopril 10 Mg Tab PO Not Given QDAY IJEOMA Lorazepam 2 mg 01/09/21 17:40 Lorazepam 2 Mg/Ml Vial IV Q1HR PRN CIWA-Ar 8-15 Multivitamins 1 each 01/10/21 10:00 01/13/21 09:28 Multivitamins ,Therapeutic Tab PO 1 each QDAY IJEOMA Administration Sodium Chloride 10 ml 01/09/21 22:00 01/13/21 21:09 Sodium Chloride 0.9% 10 Ml Flush Syringe IV 10 ml BID IJEOMA Administration Sodium Chloride 10 ml 01/09/21 12:42 01/14/21 05:16 Sodium Chloride 0.9% 10 Ml Flush Syringe IV 10 ml PRN PRN Administration LINE FLUSH Spironolactone 25 mg 01/13/21 12:00 01/13/21 11:42 Spironolactone 25 Mg Tab PO 25 mg QDAY IJEOMA Administration Thiamine HCl 100 mg 01/10/21 10:00 01/13/21 09:28 Thiamine 100 Mg Tab PO 100 mg QDAY IJEOMA Administration Nutrition/Malnutrition Assess - Dietary Evaluation Nutrition/Malnutrition Findings: Nutrition Notes Start: 01/10/21 13:09 Freq: Status: Active Protocol: Document 01/10/21 13:09 CW (Rec: 01/10/21 13:15 CW [id number]) Nutrition Notes 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 Likely r/t dietary chocie. Subjective/Other Information RN screen for skin risk. Parker score of 23. Pt PO intake is excellent at 100% of meals. Per pmhx chart, pt UBW is 114 kg. Weight has increased likelt d/t fluid overload. Burn Absent Trauma Absent GI Symptoms None Food Allergy No Current % PO Good (75-100%) Nutrition Intervention Change Diet Order: Continue Cardiac Diet Anticipated Discharge Needs: Cardiac Diet Revisit per MD consult or patient Sign Off request: Additional Comments S/O excelent PO intake and Parker of 22
[2021-01-14 08:46] LABS: BUN/Creatinine Ratio 12; Blood Urea Nitrogen 16 mg/dL (9-20); Hemolysis Index 10
--- NOTE | 2021-01-14 09:06 | Progress Note ---
Assessment and Plan Telemetry reviewed: St rate 106 with intermittent episodes of 3rd degree AV block and Mobitz II 2:1 AV block overnight. Pending EP consult in setting of high degree heart block with Cardiomyopathy- ?AICD. Of note, pt has history of life vest use. Life vest was returned after noncompliance with f/u. Pt reports he has been unable to have his medicaid transferred from [place] to [place]. He reports it is his intent to return to [place] after he is discharged from this hospitalization so he will be able to utilize his [place] medicaid for regular f/u. Discussed assessment and plan of care with patient and he is agreeable to AICD implantation here if medically necessary. Continue to hold AV chiquita blocking agents at this time in setting of Chaz arrhythmia. Reported hx of DIANN. Initiate CPAP as untreated sleep apnea may also be contributing to chaz arrhythmia. Continue IV Bumex and add Zaroxolyn. Repeat BMP in AM. Continue to monitor telemetry. Will follow. The patient has been seen in conjunction with Dr. Fisher who agrees with the assessment and plan of care. - Patient Problems (1) Acute on chronic HFrEF (heart failure with reduced ejection fraction) Current Visit: Yes Status: Acute (2) Nonischemic cardiomyopathy Current Visit: Yes Status: Chronic (3) Normal coronary arteries Current Visit: Yes Status: Chronic (4) Uncontrolled hypertension Current Visit: Yes Status: Chronic (5) DAVID (acute kidney injury) Current Visit: Yes Status: Acute (6) Diabetes mellitus Current Visit: Yes Status: Chronic (7) Sleep apnea Current Visit: Yes Status: Chronic (8) Tobacco use Current Visit: Yes Status: Chronic (9) History of ETOH abuse Current Visit: Yes Status: Chronic (10) Medical noncompliance Current Visit: Yes Status: Chronic (11) High Degree AV Block Current Visit: Yes Status: Acute Subjective Date of service: 01/14/21 Principal diagnosis: A/C HFrEF Exacerbation Interval history: Patient is resting in bed comfortably. Telemetry reviewed: St rate 106 with intermittent episodes of 3rd degree AV block and Mobitz II 2:1 AV block overnight. Objective Last Vital Signs Temp 98.0 F 01/14/21 03:25 Pulse 102 H 01/14/21 03:25 Resp 18 01/14/21 03:25 BP 102/71 01/14/21 03:25 Pulse Ox 85 01/14/21 03:25 - Physical Examination General: No Apparent Distress HEENT: Positive: PERRL, Normocephaly, Mucus Membranes Moist Neck: Positive: neck supple, trachea midline Cardiac: Positive: S1/S2, Other (Telemetry reviewed: St rate 106 with inter mittent episodes of 3rd degree AV block and Mobitz II 2:1 AV block overnight.) Lungs: Positive: Normal Breath Sounds Neuro: Positive: Grossly Intact Abdomen: Positive: Unremarkable, Distended (swelling noted) Skin: Negative: Rash Musculoskeletal: No Pain Extremities: Present: upper extr. pulses, lower extr. pulses, +2 Edema (BLE) - Labs and Meds CBC 01/14/21 Range/Units 04:11 WBC 7.1 (4.5-11.0) K/mm3 RBC 4.38 (3.65-5.03) M/mm3 Hgb 14.2 (11.8-15.2) gm/dl Hct 42.8 (35.5-45.6) % Plt Count 192 (140-440) K/mm3 Comprehensive Metabolic Panel 01/14/21 Range/Units 04:11 Sodium 141 (137-145) mmol/L Potassium 4.3 D (3.6-5.0) mmol/L Chloride 102.3 (98-107) mmol/L Carbon Dioxide 32 H (22-30) mmol/L BUN 16 (9-20) mg/dL Creatinine 1.3 (0.8-1.3) mg/dL Glucose 107 H (75-100) mg/dL Calcium 9.0 (8.4-10.2) mg/dL - Imaging and Cardiology EKG: report reviewed, image reviewed Echo: report reviewed (12/14/20 showed EF 15-20%, LV severely dilated, RV systolic function mod reduced, RV slightly dilated, mild TR, RVSP 44mmHg. ) Cardiac cath: report reviewed ( 06/2019 showed normal coronaries, EF 15-20%. ) - Telemetry EKG Rhythm: 3rd Degree HB - EKG Sinus rhythms and dysrhythmias: sinus rhythm AV and intraventricular conduction: intraventricular conducti
--- NOTE | 2021-01-14 09:52 | Electrocardiograph Report ---
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 : 1980 Requested By: BK PALMA Order Number: [id number] Reading MD: Rich Fisher Measurements Intervals [place] Rate: 96 P: 54 NM: 189 QRS: -64 QRSD: 138 T: 107 QT: 411 QTc: 520 Interpretive Statements Sinus rhythm Probable left atrial enlargement Nonspecific IVCD with LAD Anteroseptal infarct, old Nonspecific T abnormalities, lateral leads Prolonged QT interval Compared to ECG 01/09/2021 09:40:59 T-wave abnormality now present Prolonged QT interval now present Sinus tachycardia no longer present Myocardial infarct finding still present Electronically Signed On 01-14-2021 6:52:30 PDT by Rich Fisher
[2021-01-14] MEDS: THIAMINE 100 MG TAB PO SCH (10:18)
[2021-01-14] MEDS: FOLIC ACID 1 MG TAB PO SCH (10:19)
[2021-01-14] MEDS: MULTIVITAMINS ,THERAPEUTIC TAB PO SCH (10:19)
[2021-01-14] MEDS: SPIRONOLACTONE 25 MG TAB PO SCH (10:19)
[2021-01-14] MEDS: LISINOPRIL 10 MG TAB PO SCH (10:19)
[2021-01-14] MEDS: metOLazone 5 MG TAB PO SCH (17:36)
--- NOTE | 2021-01-14 21:48 | Event Note ---
Date: 01/14/21 38 Male Acute on chronic HFrEF 15-20% NICM Obesity Hypertension Severe Sleep apnea Alcohol use Intermittent high-grade AV block/CHB while sleeping (asymptomatic) Pt denies syncope or dizziness Recommend CPAP/BiPAP apparatus especially given his advanced heart failure Discussed BiV ICD with patient he agrees Plan for BiV ICD next week Continue agressive diuresis Monitor electrolytes
[2021-01-14] MEDS: ENOXAPARIN 40 MG/0.4 ML INJ SUB-Q SCH (22:06)
[2021-01-15 06:26] LABS: BUN/Creatinine Ratio 12; Blood Urea Nitrogen 17 mg/dL (9-20); Calcium 8.8 mg/dL (8.4-10.2); Hemolysis Index 8
[2021-01-15] MEDS: BUMETANIDE 1 MG/4 ML INJ IV SCH ×2 (06:45→18:15)
[2021-01-15] MEDS: SPIRONOLACTONE 25 MG TAB PO SCH (09:16)
[2021-01-15] MEDS: MULTIVITAMINS ,THERAPEUTIC TAB PO SCH (09:16)
[2021-01-15] MEDS: THIAMINE 100 MG TAB PO SCH (09:16)
[2021-01-15] MEDS: FOLIC ACID 1 MG TAB PO SCH (09:16)
[2021-01-15] MEDS: LISINOPRIL 10 MG TAB PO SCH (09:16)
--- NOTE | 2021-01-15 11:46 | Progress Note ---
Assessment and Plan Assessment and plan: --High-grade heart block intermittent Complete heart block during sleep Patient was advised LifeVest in the past , however noncompliant EP cardiology evaluated, no AV chiquita blocking agents Considering biventricular ICD placement sometime next week. Continue current management --Acute kidney injury; vasomotor nephropathy Gentle hydration, monitor renal function Avoid nephrotoxins, nephrology consult if needed --Hypokalemia; replenish Supplemented with 30 mEq oral KCl Monitor electrolytes -- Ac. On chronic systolic CHF , EF 15 to 20% Patient received dobutamine drip per cardiology strict input output monitoring,daily weight, fluid restriction Continue diuretics , beta-blockers held in view of heart block Will add CONSTANTINO inhibitors as renal function improved , supplemental oxygen, titrate O2 sats to more than 90% Patient is evaluated by EP cardiology for possible biventricular ICD placement next week --Hypertensio Moderate control, continue current antihypertensives --Hyperlipidemia Stable on low-cholesterol diet and statin therapy --Obesity hypoventilation syndrome Patient advised dietary modification exercise as tolerated and weight reduction when medically stable --Nicotine dependence Smoking cessation counseling, Nicotine patch as needed --Type II diabetes Accu-Chek sliding scale coverage ADA diet Insulin as needed -- Alcohol dependence: Counseling strongly advised to quit alcohol intake Advised to seek alcohol rehabilitation And AAA support group --Alcohol withdrawal symptoms Initiate CIWA protocol, thiamine, folic acid, multivitamin daily -- DVT prophylaxis SCD/ Lovenox Patient is noncompliant with LifeVest EP 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 Cardiology evaluated the patient patient received dobutamine drip, however developed intermittent high-grade heart block and complete heart block during sleep. Patient advised weight reduction when medically stable Echo done 12/14/20 showed EF 15-20%, LV severely dilated, RV systolic function mod reduced, RV slightly dilated, mild TR, RVSP 44mmHg. LHC done 06/2019 showed normal coronaries, EF 15-20%. 01/12/2021; patient is on dobutamine drip, feels slightly better Patient is downgraded to telemetry from IMCU, will optimize medication PT evaluation and recommendations Possible discharge in 1 to 2 days if stable and cleared by cardiology 01/13/2021; patient completed dobutamine drip per cardiology Optimize medications, mild hypokalemia replace with KCl Cardiology considering ICD placement 01/14/2021; continue current management. Plans of AICD 01/15/2021; EP cardiology has evaluated the patient Plan to do biventricular ICD placement History Interval history: I have seen and examined the patient at the bedside Patient's chart and medications reviewed Patient had ID high degree heart block and complete heart block intermittent EP cloth covered helmet puller has evaluated the patient Possible biventricular ICD placement next week Vital signs noted Hospitalist Physical - Constitutional Vitals: Temp Pulse Resp BP Pulse Ox 97.4 F L 96 H 18 112/79 98 01/15/21 07:19 01/15/21 07:46 01/15/21 07:45 01/15/21 07:19 01/15/21 07:45 General appearance: Present: no acute distress, well-nourished, obese - EENT Eyes: Present: PERRL, EOM intact - Neck Neck: Present: supple, normal ROM - Respiratory Respiratory effort: normal Respiratory: bilateral: diminished, negative: rales, rhonchi, wheezing - Cardiovascular Rhythm: regular Heart Sounds: Present: S1 & S2 - Extremities Extremities: no ischemia Extremity abnormal: edema - Abdominal General gastrointestinal: soft, non-tender, non-distended, normal bowel sounds - Integumentary Integumentary: Present: clear, warm - Psychiatric Psychiatric: appropriate mood/affect, cooperative - Neurologic Neurologic: CNII-XII intact, moves all extremities HEART Score - HEART Score Troponin: Troponin T < 0.010 ng/mL (0.00-0.029) 01/09/21 10:41 Results - Labs CBC & Chem 7: 01/14/21 04:11 01/15/21 04:52 Labs: Laboratory Last Values WBC 7.1 K/mm3 (4.5-11.0) 01/14/21 04:11 RBC 4.38 M/mm3 (3.65-5.03) 01/14/21 04:11 Hgb 14.2 gm/dl (11.8-15.2) 01/14/21 04:11 Hct 42.8 % (35.5-45.6) 01/14/21 04:11 MCV 98 fl (84-94) H 01/14/21 04:11 MCH 32 pg (28-32) 01/14/21 04:11 MCHC 33 % (32-34) 01/14/21 04:11 RDW 14.5 % (13.2-15.2) 01/14/21 04:11 Plt Count 192 K/mm3 (140-440) 01/14/21 04:11 Lymph % (Auto) 24.1 % (13.4-35.0) 01/10/21 04:31 [place] % (Auto) 6.8 % (0.0-7.3) 01/10/21 04:31 Eos % (Auto) 1.6 % (0.0-4.3) 01/10/21 04:31 Baso % (Auto) 0.6 % (0.0-1.8) 01/10/21 04:31 Lymph # (Auto) 1.6 K/mm3 (1.2-5.4) 01/10/21 04:31 [place] # (Auto) 0.5 K/mm3 (0.0-0.8) 01/10/21 04:31 Eos # (Auto) 0.1 K/mm3 (0.0-0.4) 01/10/21 04:31 Baso # (Auto) 0.0 K/mm3 (0.0-0.1) 01/10/21 04:31 Seg Neutrophils % 66.9 % (40.0-70.0) 01/10/21 04:31 Seg Neutrophils # 4.5 K/mm3 (1.8-7.7) 01/10/21 04:31 PT 14.7 Sec. (12.2-14.9) 01/09/21 10:41 INR 1.17 (0.87-1.13) H 01/09/21 10:41 Sodium 138 mmol/L (137-145) 01/15/21 04:52 Potassium 3.7 mmol/L (3.6-5.0) 01/15/21 04:52 Chloride 99.8 mmol/L (98-107) 01/15/21 04:52 Carbon Dioxide 31 mmol/L (22-30) H 01/15/21 04:52 Anion Gap 11 mmol/L 01/15/21 04:52 BUN 17 mg/dL (9-20) 01/15/21 04:52 Creatinine 1.4 mg/dL (0.8-1.3) H 01/15/21 04:52 Estimated GFR > 60 ml/min 01/15/21 04:52 BUN/Creatinine Ratio 12 % 01/15/21 04:52 Glucose 126 mg/dL (75-100) H 01/15/21 04:52 POC Glucose 139 mg/dL (70-105) H 01/14/21 16:34 Calcium 8.8 mg/dL (8.4-10.2) 01/15/21 04:52 Magnesium 1.90 mg/dL (1.7-2.3) 01/13/21 04:00 Total Bilirubin 0.80 mg/dL (0.1-1.2) 01/09/21 10:41 AST 28 units/L (5-40) 01/09/21 10:41 ALT 30 units/L (7-56) 01/09/21 10:41 Alkaline Phosphatase 50 units/L (35-129) 01/09/21 10:41 Troponin T < 0.010 ng/mL (0.00-0.029) 01/09/21 10:41 NT-Pro-B Natriuret Pep 3913 pg/mL (0-450) H 01/09/21 10:41 Total Protein 5.9 g/dL (6.3-8.2) L 01/09/21 10:41 Albumin 3.1 g/dL (3.9-5) L 01/09/21 10:41 Albumin/Globulin Ratio 1.1 % 01/09/21 10:41 Coronavirus (PCR) Negative (Negative) 01/10/21 Unknown Smith/IV: Voiding Method Urinal Active Medications - Current Medications Current Medications: Generic Name Dose Route Start Last Admin Trade Name Freq PRN Reason Stop Dose Admin Albuterol 2.5 mg 01/09/21 12:42 Albuterol 2.5 Mg/3 Ml Nebu IH Q3H PRN Shortness Of Breath Atorvastatin Calcium 40 mg 01/09/21 22:00 01/14/21 22:06 Atorvastatin 40 Mg Tab PO 40 mg QHS IJEOMA Administration Bumetanide 1 mg 01/13/21 18:00 01/15/21 06:45 Bumetanide 1 Mg/4 Ml Inj IV 1 mg BID@0600,1800 IJEOMA Administration Enoxaparin Sodium 40 mg 01/11/21 22:00 01/14/21 22:06 Enoxaparin 40 Mg/0.4 Ml Inj SUB-Q 40 mg QDAY@2200 IJEOMA Administration Protocol Folic Acid 1 mg 01/10/21 10:00 01/15/21 09:16 Folic Acid 1 Mg Tab PO 1 mg QDAY IJEOMA Administration Lisinopril 10 mg 01/13/21 12:00 01/15/21 09:16 Lisinopril 10 Mg Tab PO 10 mg QDAY IJEOMA Administration Lorazepam 2 mg 01/09/21 17:40 Lorazepam 2 Mg/Ml Vial IV Q1HR PRN CIWA-Ar 8-15 Metolazone 5 mg 01/14/21 17:30 01/14/21 17:36 Metolazone 5 Mg Tab PO 5 mg Q24H IJEOMA Administration Multivitamins 1 each 01/10/21 10:00 01/15/21 09:16 Multivitamins ,Therapeutic Tab PO 1 each QDAY IJEOMA Administration Sodium Chloride 10 ml 01/09/21 22:00 01/15/21 09:18 Sodium Chloride 0.9% 10 Ml Flush Syringe IV 10 ml BID IJEOMA Administration Sodium Chloride 10 ml 01/09/21 12:42 01/14/21 05:16 Sodium Chloride 0.9% 10 Ml Flush Syringe IV 10 ml PRN PRN Administration LINE FLUSH Spironolactone 25 mg 01/13/21 12:00 01/15/21 09:16 Spironolactone 25 Mg Tab PO 25 mg QDAY IJEOMA Administration Thiamine HCl 100 mg 01/10/21 10:00 01/15/21 09:16 Thiamine 100 Mg Tab PO 100 mg QDAY IJEOMA Administration Nutrition/Malnutrition Assess - Dietary Evaluation Nutrition/Malnutrition Findings: Nutrition Notes Start: 01/10/21 13:09 Freq: Status: Active Protocol: Document 01/14/21 11:52 CW (Rec: 01/14/21 12:03 CW [id number]) Nutrition Notes Initial or Follow up Brief Note Current Diagnosis Acute Kidney Injury,Diabetes, Sepsis,Hyperlipidemia Current Diet Regular Diet Labs/Tests Reviewed Pertinent Medications aldactone folic acid thiamine kdur Height 5 ft 11 in Weight 121.7 kg Usual Body Weight 114 kg [place] Body Weight (kg) 78.18 BMI 37.4 Weight change and time frame Wt change noted. Likely r/t lasix usage Weight Status Obese Subjective/Other Information Screen for LOS. Pt reports having a good appetite adn eating 100% of meals. Pt requests double dinner portions to alleviate night time hunger. Pt also had question regarding outpatient services. Resources given to patient verbally. Percent of energy/protein needs met: 100%/100% Burn Absent Trauma Absent GI Symptoms None Food Allergy No Current % PO Good (75-100%) Minimum of two criteria No physical signs of malnutrition #1 Nutrition Diagnosis No nutrition diagnosis at this time Nutrition Intervention Change Diet Order: Continue regular diet Anticipated Discharge Needs: Cardiac Consistent Carbohydrate Diet Revisit per MD consult or patient Sign Off request: Additional Comments S/O excellent PO intake
--- NOTE | 2021-01-15 16:00 | Progress Note ---
Assessment and Plan Continue diuretics and other management. For BivICD implantation next week. - Patient Problems (1) Acute on chronic HFrEF (heart failure with reduced ejection fraction) Current Visit: Yes Status: Acute (2) High degree atrioventricular block Current Visit: Yes Status: Acute (3) Nonischemic cardiomyopathy Current Visit: Yes Status: Chronic (4) DAVID (acute kidney injury) Current Visit: Yes Status: Acute (5) Hypertension Current Visit: Yes Status: Chronic Qualifiers: Hypertension type: essential hypertension Qualified Code(s): I10 - Essential (primary) hypertension (6) DIANN (obstructive sleep apnea) Current Visit: Yes Status: Chronic (7) Normal coronary arteries Current Visit: Yes Status: Chronic (8) Diabetes mellitus Current Visit: Yes Status: Chronic Qualifiers: Diabetes mellitus type: type 2 Subjective Date of service: 01/15/21 Principal diagnosis: Acute on chronic HFrEF, NICMP, AV block Interval history: No shortness of breath. He still has significant leg edema. In sinus rhythm with intermittent high degree AV block. Objective Vital Signs Temp Pulse Pulse Resp BP BP Pulse Ox 01/15/21 11:32 97.4 F L 106 H 16 94/63 91 01/15/21 10:00 95 01/15/21 07:46 96 H 01/15/21 07:45 72 18 98 01/15/21 07:19 97.4 F L 110 H 16 112/79 95 01/15/21 03:59 97.6 F 95 H 18 102/75 97 01/15/21 00:22 98 01/15/21 00:00 98.2 F 99 H 18 109/76 98 01/14/21 22:00 99 H 01/14/21 21:00 72 18 98 01/14/21 20:00 99 H 01/14/21 19:53 98.6 F 106 H 18 98/70 98 01/14/21 17:56 97.8 F 89 17 108/78 97 - Physical Examination General: No Apparent Distress HEENT: Positive: EOMI, Normocephaly, Mucus Membranes Moist Neck: Positive: neck supple, trachea midline, JVD/HJR Cardiac: Positive: Reg Rate and Rhythm, S1/S2 Lungs: Positive: clear to auscultation Neuro: Positive: Grossly Intact Abdomen: Positive: Soft, Active Bowel Sounds. Negative: Tender Skin: Negative: Rash Musculoskeletal: Normal Range of Motion Extremities: Present: upper extr. pulses, lower extr. pulses, +3 Edema (pitting bilateral leg edema) - Labs and Meds Comprehensive Metabolic Panel 01/15/21 Range/Units 04:52 Sodium 138 (137-145) mmol/L Potassium 3.7 (3.6-5.0) mmol/L Chloride 99.8 (98-107) mmol/L Carbon Dioxide 31 H (22-30) mmol/L BUN 17 (9-20) mg/dL Creatinine 1.4 H (0.8-1.3) mg/dL Glucose 126 H (75-100) mg/dL Calcium 8.8 (8.4-10.2) mg/dL - Imaging and Cardiology Echo: report reviewed (12/14/20 showed EF 15-20%, LV severely dilated, RV systolic function mod reduced, RV slightly dilated, mild TR, RVSP 44mmHg. ) Cardiac cath: report reviewed ( 06/2019 showed normal coronaries, EF 15-20%. ) - Telemetry EKG Rhythm: Sinus Rhythm - EKG Sinus rhythms and dysrhythmias: sinus rhythm AV and intraventricular conduction: advanced AV block
[2021-01-15] MEDS: metOLazone 5 MG TAB PO SCH (17:37)
[2021-01-15] MEDS: ENOXAPARIN 40 MG/0.4 ML INJ SUB-Q SCH (22:23)
[2021-01-16] MEDS: BUMETANIDE 1 MG/4 ML INJ IV SCH ×2 (05:46→17:34)
[2021-01-16 06:03] LABS: BUN/Creatinine Ratio 12; Blood Urea Nitrogen 16 mg/dL (9-20); Calcium 8.6 mg/dL (8.4-10.2); Hemolysis Index 6
[2021-01-16] MEDS: SPIRONOLACTONE 25 MG TAB PO SCH (10:28)
[2021-01-16] MEDS: MULTIVITAMINS ,THERAPEUTIC TAB PO SCH (10:28)
[2021-01-16] MEDS: THIAMINE 100 MG TAB PO SCH (10:29)
[2021-01-16] MEDS: FOLIC ACID 1 MG TAB PO SCH (10:29)
[2021-01-16] MEDS: LISINOPRIL 10 MG TAB PO SCH (10:29)
--- NOTE | 2021-01-16 11:12 | Progress Note ---
Assessment and Plan Assessment and plan: --High-grade heart block intermittent Complete heart block during sleep Biventricular ICD placement next week per cardiology patient was advised LifeVest in the past , however noncompliant EP cardiology evaluated, no AV chiquita blocking agents Continue current management --Acute kidney injury; vasomotor nephropathy Resolved , continue gentle hydration, monitor renal function Avoid nephrotoxins, nephrology consult if needed --Hypokalemia; replenish Supplemented with 40 mEq oral KCl Monitor electrolytes -- Ac. On chronic systolic CHF , EF 15 to 20% Patient received dobutamine drip per cardiology strict input output monitoring,daily weight, fluid restriction Continue diuretics , beta-blockers held in view of heart block Will add CONSTANTINO inhibitors as renal function improved , supplemental oxygen, titrate O2 sats to more than 90% Patient is evaluated by EP cardiology for possible biventricular ICD placement next week --Hypertension Moderate control, continue current antihypertensives --Hyperlipidemia Stable on low-cholesterol diet and statin therapy --Obesity hypoventilation syndrome Patient advised dietary modification exercise as tolerated and weight reduction when medically stable --Nicotine dependence Smoking cessation counseling, Nicotine patch as needed --Type II diabetes Accu-Chek sliding scale coverage ADA diet Insulin as needed -- Alcohol dependence: Counseling strongly advised to quit alcohol intake Advised to seek alcohol rehabilitation And AAA support group --Alcohol withdrawal symptoms Initiate CIWA protocol, thiamine, folic acid, multivitamin daily -- DVT prophylaxis SCD/ Lovenox Patient is noncompliant with LifeVest EP second crusher planning ICD placement next week Closely monitor the patient and adjust management as needed Plan of care reviewed with the patient and his nurse Brief history; 40 year old male with a past medical history of systolic CHF, dilated NICMP EF15-20%, normal coronaries via LHC, prior ETOH abuse, HTN, HLD, DM, DIANN noncom pliant with CPAP, patient was advised LifeVest however patient was noncompliant does not use anymore was admitted through emergency room with atypical chest pain, bradyarrhythmia . Cardiology evaluated the patient patient received dobutamine drip, however developed intermittent high-grade heart block and complete heart block during sleep. Patient advised weight reduction when medically stable Echo done 12/14/20 showed EF 15-20%, LV severely dilated, RV systolic function mod reduced, RV slightly dilated, mild TR, RVSP 44mmHg. LHC done 06/2019 showed normal coronaries, EF 15-20%. 01/12/2021; patient is on dobutamine drip, feels slightly better Patient is downgraded to telemetry from IMCU, will optimize medication PT evaluation and recommendations Possible discharge in 1 to 2 days if stable and cleared by cardiology 01/13/2021; patient completed dobutamine drip per cardiology Optimize medications, mild hypokalemia replace with KCl Cardiology considering ICD placement 01/14/2021; continue current management. Plans of AICD 01/15/2021; EP cardiology has evaluated the patient Plan to do biventricular ICD placement 01/16/2021; hypokalemia, replenished with 40 mEq KCl x1 dose ICD placement next week History Interval history: I have seen and examined the patient at the bedside today Patient's chart and medications reviewed Patient has no new complaints Awaiting ICD placement next week per cardiology Vital signs noted Hospitalist Physical - Constitutional Vitals: Temp Pulse Resp BP Pulse Ox 97.3 F L 96 H 16 87/59 70 L 01/16/21 07:34 01/16/21 10:00 01/16/21 07:34 01/16/21 07:34 01/16/21 07:34 General appearance: Present: no acute distress, well-nourished, obese - EENT Eyes: Present: PERRL, EOM intact - Neck Neck: Present: supple, normal ROM - Respiratory Respiratory effort: normal Respiratory: bilateral: diminished, negative: rales, rhonchi, wheezing - Cardiovascular Rhythm: regular Heart Sounds: Present: S1 & S2 - Extremities Extremities: no ischemia, No edema - Abdominal General gastrointestinal: soft, non-tender, non-distended, normal bowel sounds - Integumentary Integumentary: Present: clear, warm - Psychiatric Psychiatric: appropriate mood/affect, cooperative - Neurologic Neurologic: CNII-XII intact, moves all extremities HEART Score - HEART Score Troponin: Troponin T < 0.010 ng/mL (0.00-0.029) 01/09/21 10:41 Results - Labs CBC & Chem 7: 01/14/21 04:11 01/16/21 04:25 Labs: Laboratory Last Values WBC 7.1 K/mm3 (4.5-11.0) 01/14/21 04:11 RBC 4.38 M/mm3 (3.65-5.03) 01/14/21 04:11 Hgb 14.2 gm/dl (11.8-15.2) 01/14/21 04:11 Hct 42.8 % (35.5-45.6) 01/14/21 04:11 MCV 98 fl (84-94) H 01/14/21 04:11 MCH 32 pg (28-32) 01/14/21 04:11 MCHC 33 % (32-34) 01/14/21 04:11 RDW 14.5 % (13.2-15.2) 01/14/21 04:11 Plt Count 192 K/mm3 (140-440) 01/14/21 04:11 Lymph % (Auto) 24.1 % (13.4-35.0) 01/10/21 04:31 [place] % (Auto) 6.8 % (0.0-7.3) 01/10/21 04:31 Eos % (Auto) 1.6 % (0.0-4.3) 01/10/21 04:31 Baso % (Auto) 0.6 % (0.0-1.8) 01/10/21 04:31 Lymph # (Auto) 1.6 K/mm3 (1.2-5.4) 01/10/21 04:31 [place] # (Auto) 0.5 K/mm3 (0.0-0.8) 01/10/21 04:31 Eos # (Auto) 0.1 K/mm3 (0.0-0.4) 01/10/21 04:31 Baso # (Auto) 0.0 K/mm3 (0.0-0.1) 01/10/21 04:31 Seg Neutrophils % 66.9 % (40.0-70.0) 01/10/21 04:31 Seg Neutrophils # 4.5 K/mm3 (1.8-7.7) 01/10/21 04:31 PT 14.7 Sec. (12.2-14.9) 01/09/21 10:41 INR 1.17 (0.87-1.13) H 01/09/21 10:41 Sodium 144 mmol/L (137-145) 01/16/21 04:25 Potassium 3.4 mmol/L (3.6-5.0) L 01/16/21 04:25 Chloride 100.8 mmol/L (98-107) 01/16/21 04:25 Carbon Dioxide 36 mmol/L (22-30) H 01/16/21 04:25 Anion Gap 11 mmol/L 01/16/21 04:25 BUN 16 mg/dL (9-20) 01/16/21 04:25 Creatinine 1.3 mg/dL (0.8-1.3) 01/16/21 04:25 Estimated GFR > 60 ml/min 01/16/21 04:25 BUN/Creatinine Ratio 12 % 01/16/21 04:25 Glucose 130 mg/dL (75-100) H 01/16/21 04:25 POC Glucose 139 mg/dL (70-105) H 01/14/21 16:34 Calcium 8.6 mg/dL (8.4-10.2) 01/16/21 04:25 Magnesium 1.90 mg/dL (1.7-2.3) 01/13/21 04:00 Total Bilirubin 0.80 mg/dL (0.1-1.2) 01/09/21 10:41 AST 28 units/L (5-40) 01/09/21 10:41 ALT 30 units/L (7-56) 01/09/21 10:41 Alkaline Phosphatase 50 units/L (35-129) 01/09/21 10:41 Troponin T < 0.010 ng/mL (0.00-0.029) 01/09/21 10:41 NT-Pro-B Natriuret Pep 3913 pg/mL (0-450) H 01/09/21 10:41 Total Protein 5.9 g/dL (6.3-8.2) L 01/09/21 10:41 Albumin 3.1 g/dL (3.9-5) L 01/09/21 10:41 Albumin/Globulin Ratio 1.1 % 01/09/21 10:41 Coronavirus (PCR) Negative (Negative) 01/10/21 Unknown Smith/IV: Voiding Method Toilet Active Medications - Current Medications Current Medications: Generic Name Dose Route Start Last Admin Trade Name Freq PRN Reason Stop Dose Admin Albuterol 2.5 mg 01/09/21 12:42 Albuterol 2.5 Mg/3 Ml Nebu IH Q3H PRN Shortness Of Breath Atorvastatin Calcium 40 mg 01/09/21 22:00 01/15/21 22:22 Atorvastatin 40 Mg Tab PO 40 mg QHS IJEOMA Administration Bumetanide 1 mg 01/13/21 18:00 01/16/21 05:46 Bumetanide 1 Mg/4 Ml Inj IV 1 mg BID@0600,1800 IJEOMA Administration Enoxaparin Sodium 40 mg 01/11/21 22:00 01/15/21 22:23 Enoxaparin 40 Mg/0.4 Ml Inj SUB-Q 40 mg QDAY@2200 IJEOMA Administration Protocol Folic Acid 1 mg 01/10/21 10:00 01/16/21 10:29 Folic Acid 1 Mg Tab PO 1 mg QDAY IJEOMA Administration Lisinopril 10 mg 01/13/21 12:00 01/16/21 10:29 Lisinopril 10 Mg Tab PO Not Given QDAY IJEOMA Lorazepam 2 mg 01/09/21 17:40 Lorazepam 2 Mg/Ml Vial IV Q1HR PRN CIWA-Ar 8-15 Metolazone 5 mg 01/14/21 17:30 01/15/21 17:37 Metolazone 5 Mg Tab PO 5 mg Q24H IJEOMA Administration Multivitamins 1 each 01/10/21 10:00 01/16/21 10:28 Multivitamins ,Therapeutic Tab PO 1 each QDAY IJEOMA Administration Sodium Chloride 10 ml 01/09/21 22:00 01/16/21 10:29 Sodium Chloride 0.9% 10 Ml Flush Syringe IV 10 ml BID IJEOMA Administration Sodium Chloride 10 ml 01/09/21 12:42 01/14/21 05:16 Sodium Chloride 0.9% 10 Ml Flush Syringe IV 10 ml PRN PRN Administration LINE FLUSH Spironolactone 25 mg 01/13/21 12:00 01/16/21 10:28 Spironolactone 25 Mg Tab PO 25 mg QDAY IJEOMA Administration Thiamine HCl 100 mg 01/10/21 10:00 01/16/21 10:29 Thiamine 100 Mg Tab PO 100 mg QDAY IJEOMA Administration Nutrition/Malnutrition Assess - Dietary Evaluation Nutrition/Malnutrition Findings: Nutrition Notes Start: 01/10/21 13:09 Freq: Status: Active Protocol: Document 01/14/21 11:52 CW (Rec: 01/14/21 12:03 CW [id number]) Nutrition Notes Initial or Follow up Brief Note Current Diagnosis Acute Kidney Injury,Diabetes, Sepsis,Hyperlipidemia Current Diet Regular Diet Labs/Tests Reviewed Pertinent Medications aldactone folic acid thiamine kdur Height 5 ft 11 in Weight 121.7 kg Usual Body Weight 114 kg [place] Body Weight (kg) 78.18 BMI 37.4 Weight change and time frame Wt change noted. Likely r/t lasix usage Weight Status Obese Subjective/Other Information Screen for LOS. Pt reports having a good appetite adn eating 100% of meals. Pt requests double dinner portions to alleviate night time hunger. Pt also had question regarding outpatient services. Resources given to patient verbally. Percent of energy/protein needs met: 100%/100% Burn Absent Trauma Absent GI Symptoms None Food Allergy No Current % PO Good (75-100%) Minimum of two criteria No physical signs of malnutrition #1 Nutrition Diagnosis No nutrition diagnosis at this time Nutrition Intervention Change Diet Order: Continue regular diet Anticipated Discharge Needs: Cardiac Consistent Carbohydrate Diet Revisit per MD consult or patient Sign Off request: Additional Comments S/O excellent PO intake
[2021-01-16] MEDS ORDERED: POTASSIUM CHLORIDE ER 20 MEQ TAB PO ONE (12:00)
[2021-01-16] MEDS: metOLazone 5 MG TAB PO SCH (17:34)
--- NOTE | 2021-01-16 18:53 | Progress Note ---
Assessment and Plan For BivICD Implantation later this week. Continue IV diuretics. - Patient Problems (1) Acute on chronic HFrEF (heart failure with reduced ejection fraction) Current Visit: Yes Status: Acute (2) High degree atrioventricular block Current Visit: Yes Status: Acute (3) Nonischemic cardiomyopathy Current Visit: Yes Status: Chronic (4) DAVID (acute kidney injury) Current Visit: Yes Status: Acute (5) Hypertension Current Visit: Yes Status: Chronic Qualifiers: Hypertension type: essential hypertension Qualified Code(s): I10 - Ess ential (primary) hypertension (6) DIANN (obstructive sleep apnea) Current Visit: Yes Status: Chronic (7) Normal coronary arteries Current Visit: Yes Status: Chronic (8) Diabetes mellitus Current Visit: Yes Status: Chronic Qualifiers: Diabetes mellitus type: type 2 Subjective Date of service: 01/16/21 Principal diagnosis: Acute on chronic HFrEF, NICMP, AV block Interval history: Less short of breath. In sinus tachycardia with intermittent high degree AV block. Objective Vital Signs Temp Pulse Resp Resp BP Pulse Ox 01/16/21 15:53 98.3 F 103 H 15 105/67 96 01/16/21 11:41 97.6 F 106 H 17 121/71 97 01/16/21 10:00 96 H 01/16/21 07:34 97.3 F L 68 16 87/59 70 L 01/16/21 04:36 98.1 F 107 H 18 101/77 97 01/16/21 00:03 98.4 F 110 H 18 102/74 96 01/15/21 22:10 97 01/15/21 22:00 107 H 20 01/15/21 19:33 98.2 F 105 H 18 120/89 99 - Physical Examination General: No Apparent Distress HEENT: Positive: EOMI, Normocephaly, Mucus Membranes Moist Neck: Positive: neck supple, trachea midline, JVD/HJR Cardiac: Positive: Reg Rate and Rhythm, S1/S2 Lungs: Positive: clear to auscultation Neuro: Positive: Grossly Intact Abdomen: Positive: Soft, Active Bowel Sounds. Negative: Tender Skin: Negative: Rash Musculoskeletal: Normal Range of Motion Extremities: Present: upper extr. pulses, lower extr. pulses, +3 Edema (pitting bilateral leg edema) - Labs and Meds Comprehensive Metabolic Panel 01/16/21 Range/Units 04:25 Sodium 144 (137-145) mmol/L Potassium 3.4 L (3.6-5.0) mmol/L Chloride 100.8 (98-107) mmol/L Carbon Dioxide 36 H (22-30) mmol/L BUN 16 (9-20) mg/dL Creatinine 1.3 (0.8-1.3) mg/dL Glucose 130 H (75-100) mg/dL Calcium 8.6 (8.4-10.2) mg/dL - Imaging and Cardiology EKG: report reviewed, image reviewed Echo: report reviewed (12/14/20 showed EF 15-20%, LV severely dilated, RV systolic function mod reduced, RV slightly dilated, mild TR, RVSP 44mmHg. ) Cardiac cath: report reviewed ( 06/2019 showed normal coronaries, EF 15-20%. ) - EKG Sinus rhythms and dysrhythmias: sinus rhythm AV and intraventricular conduction: advanced AV block
[2021-01-16] MEDS: ENOXAPARIN 40 MG/0.4 ML INJ SUB-Q SCH (23:15)
[2021-01-17] MEDS: BUMETANIDE 1 MG/4 ML INJ IV SCH ×2 (05:07→18:01)
[2021-01-17] MEDS: LISINOPRIL 10 MG TAB PO SCH ×2 (09:55→10:22)
[2021-01-17] MEDS: THIAMINE 100 MG TAB PO SCH (09:55)
[2021-01-17] MEDS: SPIRONOLACTONE 25 MG TAB PO SCH (09:57)
[2021-01-17] MEDS: MULTIVITAMINS ,THERAPEUTIC TAB PO SCH (09:57)
[2021-01-17] MEDS: FOLIC ACID 1 MG TAB PO SCH (09:57)
--- NOTE | 2021-01-17 11:56 | Progress Note ---
Assessment and Plan Telemetry reviewed: ST rate 119, with intermittent episodes of 3rd degree AV block overnight. High HR ST rate 156. Continue to hold AV chiquita blocking agents at this time in setting of Chaz arrhythmia. Reported hx of DIANN. Continue CPAP therapy as DIANN is possible contributor to bradycardic rhythm. Continue IV Bumex and aldactone. Repeat BMP in am. Pt for BiVICD in AM. Indications, potential risks and benefits of AICD implantation reviewed with pt at bedside and he is agreeable to proceed with procedure. NPO after midnight. Continue to monitor telemetry. Will follow. The patient has been seen in conjunction with Dr. Fisher who agrees with the assessment and plan of care. - Patient Problems (1) Acute on chronic HFrEF (heart failure with reduced ejection fraction) Current Visit: Yes Status: Acute (2) Nonischemic cardiomyopathy Current Visit: Yes Status: Chronic (3) Normal coronary arteries Current Visit: Yes Status: Chronic (4) Uncontrolled hypertension Current Visit: Yes Status: Chronic (5) DAVID (acute kidney injury) Current Visit: Yes Status: Acute (6) Diabetes mellitus Current Visit: Yes Status: Chronic (7) Sleep apnea Current Visit: Yes Status: Chronic (8) Tobacco use Current Visit: Yes Status: Chronic (9) History of ETOH abuse Current Visit: Yes Status: Chronic (10) Medical noncompliance Current Visit: Yes Status: Chronic (11) High Degree AV Block Current Visit: Yes Status: Acute Subjective Date of service: 01/17/21 Principal diagnosis: Acute on chronic HFrEF, NICMP, AV block Interval history: Patient is resting in bed comfortably. Telemetry reviewed: ST rate 119, with intermittent episodes of 3rd degree AV block overnight. High HR ST rate 156. Bout of 7 beat NSVT noted this AM. Objective Last Vital Signs Temp 97.5 F L 01/17/21 04:04 Pulse 115 H 01/17/21 10:22 Resp 20 01/17/21 10:00 BP 111/70 01/17/21 04:04 Pulse Ox 95 01/17/21 04:04 - Physical Examination General: No Apparent Distress HEENT: Positive: EOMI, Normocephaly, Mucus Membranes Moist Neck: Positive: neck supple, trachea midline, JVD/HJR Cardiac: Positive: Reg Rate and Rhythm, S1/S2 Lungs: Positive: Normal Exam Neuro: Positive: Grossly Intact Abdomen: Positive: Soft, Active Bowel Sounds. Negative: Tender Skin: Negative: Rash Musculoskeletal: Normal Range of Motion Extremities: Present: upper extr. pulses, lower extr. pulses, +2 Edema - Labs and Meds Comprehensive Metabolic Panel 01/17/21 Range/Units 09:28 Potassium 4.0 (3.6-5.0) mmol/L - Imaging and Cardiology EKG: report reviewed, image reviewed Echo: report reviewed (12/14/20 showed EF 15-20%, LV severely dilated, RV systolic function mod reduced, RV slightly dilated, mild TR, RVSP 44mmHg. ) Cardiac cath: report reviewed ( 06/2019 showed normal coronaries, EF 15-20%. ) - Telemetry EKG Rhythm: Sinus Tachycardia - EKG Sinus rhythms and dysrhythmias: sinus rhythm AV and intraventricular conduction: advanced AV block
[2021-01-17] MEDS: metOLazone 5 MG TAB PO SCH (18:01)
--- NOTE | 2021-01-17 20:02 | Progress Note ---
Assessment and Plan Assessment and plan: --High-grade heart block intermittent Complete heart block during sleep Biventricular ICD placement next week per cardiology patient was advised LifeVest in the past , however noncompliant EP cardiology evaluated, no AV chiquita blocking agents Continue current management --Acute kidney injury; vasomotor nephropathy Resolved , continue gentle hydration, monitor renal function Avoid nephrotoxins, nephrology consult if needed --Hypokalemia; replenish Supplemented with 40 mEq oral KCl Monitor electrolytes -- Ac. On chronic systolic CHF , EF 15 to 20% Patient received dobutamine drip per cardiology strict input output monitoring,daily weight, fluid restriction Continue diuretics , beta-blockers held in view of heart block Will add CONSTANTINO inhibitors as renal function improved , supplemental oxygen, titrate O2 sats to more than 90% Patient is evaluated by EP cardiology for possible biventricular ICD placement tomorrow --Hypertension Moderate control, continue current antihypertensives --Hyperlipidemia Stable on low-cholesterol diet and statin therapy --Obesity hypoventilation syndrome Patient advised dietary modification exercise as tolerated and weight reduction when medically stable --Nicotine dependence Smoking cessation counseling, Nicotine patch as needed --Type II diabetes Accu-Chek sliding scale coverage ADA diet Insulin as needed -- Alcohol dependence: Counseling strongly advised to quit alcohol intake Advised to seek alcohol rehabilitation And AAA support group --Alcohol withdrawal symptoms Initiate CIWA protocol, thiamine, folic acid, multivitamin daily -- DVT prophylaxis SCD/ Lovenox Patient is noncompliant with LifeVest EP director of web marketing planning ICD placement tomorrow Patient n.p.o. from midnight Closely monitor the patient and adjust management as needed Plan of care reviewed with the patient and his nurse Brief history; 40 year old male with a past medical history of systolic CHF, dilated NICMP EF15-20%, normal coronaries via C, prior ETOH abuse, HTN, HLD, DM, DIANN noncompliant with CPAP, patient was advised LifeVest however patient was noncom pliant does not use anymore was admitted through emergency room with atypical chest pain, bradyarrhythmia . Cardiology evaluated the patient patient received dobutamine drip, however developed intermittent high-grade heart block and complete heart block during sleep. EP director of web marketing evaluated the patient, planning AICD tomorrow Echo done 12/14/20 showed EF 15-20%, LV severely dilated, RV systolic function mod reduced, RV slightly dilated, mild TR, RVSP 44mmHg. [facility] done 06/2019 showed normal coronaries, EF 15-20%. 01/12/2021; patient is on dobutamine drip, feels slightly better Patient is downgraded to telemetry from IMCU, will optimize medication PT evaluation and recommendations Possible discharge in 1 to 2 days if stable and cleared by cardiology 01/13/2021; patient completed dobutamine drip per cardiology Optimize medications, mild hypokalemia replace with KCl Cardiology considering ICD placement 01/14/2021; continue current management. Plans of AICD 01/15/2021; EP cardiology has evaluated the patient Plan to do biventricular ICD placement 01/16/2021; hypokalemia, replenished with 40 mEq KCl x1 dose ICD placement next week 01/17/2021; AICD tomorrow, n.p.o. from midnight History Interval history: I have seen and examined the patient at the bedside Patient's chart and medications reviewed No new complaints, Vital signs reviewed Cardiology planning AICD placement tomorrow Hospitalist Physical - Constitutional Vitals: Temp Pulse Resp BP Pulse Ox 97.7 F 112 H 18 102/80 93 01/17/21 12:14 01/17/21 16:48 01/17/21 12:14 01/17/21 16:48 01/17/21 16:48 General appearance: Present: no acute distress, well-nourished, obese - EENT Eyes: Present: PERRL, EOM intact - Neck Neck: Present: supple, normal ROM - Respiratory Respiratory effort: normal Respiratory: bilateral: diminished, negative: rales, rhonchi, wheezing - Cardiovascular Rhythm: regular Heart Sounds: Present: S1 & S2 - Extremities Extremities: no ischemia, No edema - Abdominal General gastrointestinal: soft, non-tender, non-distended, normal bowel sounds - Integumentary Integumentary: Present: clear, warm - Psychiatric Psychiatric: appropriate mood/affect, cooperative - Neurologic Neurologic: CNII-XII intact, moves all extremities HEART Score - HEART Score Troponin: Troponin T < 0.010 ng/mL (0.00-0.029) 01/09/21 10:41 Results - Labs CBC & Chem 7: 01/14/21 04:11 01/17/21 09:28 Labs: Laboratory Last Values WBC 7.1 K/mm3 (4.5-11.0) 01/14/21 04:11 RBC 4.38 M/mm3 (3.65-5.03) 01/14/21 04:11 Hgb 14.2 gm/dl (11.8-15.2) 01/14/21 04:11 Hct 42.8 % (35.5-45.6) 01/14/21 04:11 MCV 98 fl (84-94) H 01/14/21 04:11 MCH 32 pg (28-32) 01/14/21 04:11 MCHC 33 % (32-34) 01/14/21 04:11 RDW 14.5 % (13.2-15.2) 01/14/21 04:11 Plt Count 192 K/mm3 (140-440) 01/14/21 04:11 Lymph % (Auto) 24.1 % (13.4-35.0) 01/10/21 04:31 [place] % (Auto) 6.8 % (0.0-7.3) 01/10/21 04:31 Eos % (Auto) 1.6 % (0.0-4.3) 01/10/21 04:31 Baso % (Auto) 0.6 % (0.0-1.8) 01/10/21 04:31 Lymph # (Auto) 1.6 K/mm3 (1.2-5.4) 01/10/21 04:31 [place] # (Auto) 0.5 K/mm3 (0.0-0.8) 01/10/21 04:31 Eos # (Auto) 0.1 K/mm3 (0.0-0.4) 01/10/21 04:31 Baso # (Auto) 0.0 K/mm3 (0.0-0.1) 01/10/21 04:31 Seg Neutrophils % 66.9 % (40.0-70.0) 01/10/21 04:31 Seg Neutrophils # 4.5 K/mm3 (1.8-7.7) 01/10/21 04:31 PT 14.7 Sec. (12.2-14.9) 01/09/21 10:41 INR 1.17 (0.87-1.13) H 01/09/21 10:41 Sodium 144 mmol/L (137-145) 01/16/21 04:25 Potassium 4.0 mmol/L (3.6-5.0) 01/17/21 09:28 Chloride 100.8 mmol/L (98-107) 01/16/21 04:25 Carbon Dioxide 36 mmol/L (22-30) H 01/16/21 04:25 Anion Gap 11 mmol/L 01/16/21 04:25 BUN 16 mg/dL (9-20) 01/16/21 04:25 Creatinine 1.3 mg/dL (0.8-1.3) 01/16/21 04:25 Estimated GFR > 60 ml/min 01/16/21 04:25 BUN/Creatinine Ratio 12 % 01/16/21 04:25 Glucose 130 mg/dL (75-100) H 01/16/21 04:25 POC Glucose 82 mg/dL (70-105) 01/17/21 16:37 Calcium 8.6 mg/dL (8.4-10.2) 01/16/21 04:25 Magnesium 1.70 mg/dL (1.7-2.3) 01/17/21 09:28 Total Bilirubin 0.80 mg/dL (0.1-1.2) 01/09/21 10:41 AST 28 units/L (5-40) 01/09/21 10:41 ALT 30 units/L (7-56) 01/09/21 10:41 Alkaline Phosphatase 50 units/L (35-129) 01/09/21 10:41 Troponin T < 0.010 ng/mL (0.00-0.029) 01/09/21 10:41 NT-Pro-B Natriuret Pep 3913 pg/mL (0-450) H 01/09/21 10:41 Total Protein 5.9 g/dL (6.3-8.2) L 01/09/21 10:41 Albumin 3.1 g/dL (3.9-5) L 01/09/21 10:41 Albumin/Globulin Ratio 1.1 % 01/09/21 10:41 Coronavirus (PCR) Negative (Negative) 01/10/21 Unknown Smtih/IV: Voiding Method Urinal Active Medications - Current Medications Current Medications: Generic Name Dose Route Start Last Admin Trade Name Freq PRN Reason Stop Dose Admin Albuterol 2.5 mg 01/09/21 12:42 Albuterol 2.5 Mg/3 Ml Nebu IH Q3H PRN Shortness Of Breath Atorvastatin Calcium 40 mg 01/09/21 22:00 01/16/21 23:15 Atorvastatin 40 Mg Tab PO 40 mg QHS IJEOMA Administration Bumetanide 1 mg 01/13/21 18:00 01/17/21 18:01 Bumetanide 1 Mg/4 Ml Inj IV 1 mg BID@0600,1800 [facility] [place] Administration Enoxaparin Sodium 40 mg 01/11/21 22:00 01/16/21 23:15 Enoxaparin 40 Mg/0.4 Ml Inj SUB-Q 40 mg QDAY@2200 [facility] [place] Administration Protocol Folic Acid 1 mg 01/10/21 10:00 01/17/21 09:57 Folic Acid 1 Mg Tab PO 1 mg QDAY [facility] [place] Administration Lisinopril 10 mg 01/13/21 12:00 01/17/21 10:22 Lisinopril 10 Mg Tab PO Not Given QDAY IJEOMA Lorazepam 2 mg 01/09/21 17:40 Lorazepam 2 Mg/Ml Vial IV Q1HR PRN CIWA-Ar 8-15 Metolazone 5 mg 01/14/21 17:30 01/17/21 18:01 Metolazone 5 Mg Tab PO 5 mg Q24H IJEOMA Administration Multivitamins 1 each 01/10/21 10:00 01/17/21 09:57 Multivitamins ,Therapeutic Tab PO 1 each QDAY [facility] [place] Administration Sodium Chloride 10 ml 01/09/21 22:00 01/17/21 09:58 Sodium Chloride 0.9% 10 Ml Flush Syringe IV 10 ml BID IJEOMA Administration Sodium Chloride 10 ml 01/09/21 12:42 01/14/21 05:16 Sodium Chloride 0.9% 10 Ml Flush Syringe IV 10 ml PRN PRN Administration LINE FLUSH Spironolactone 25 mg 01/13/21 12:00 01/17/21 09:57 Spironolactone 25 Mg Tab PO 25 mg QDAY [facility] [place] Administration Thiamine HCl 100 mg 01/10/21 10:00 01/17/21 09:55 Thiamine 100 Mg Tab PO 100 mg QDAY IJEOMA Administration Nutrition/Malnutrition Assess - Dietary Evaluation Nutrition/Malnutrition Findings: Nutrition Notes Start: 01/10/21 13:09 Freq: Status: Active Protocol: Document 01/14/21 11:52 CW (Rec: 01/14/21 12:03 CW [id number]) Nutrition Notes Initial or Follow up Brief Note Current Diagnosis Acute Kidney Injury,Diabetes, Sepsis,Hyperlipidemia Current Diet Regular Diet Labs/Tests Reviewed Pertinent Medications aldactone folic acid thiamine kdur Height 5 ft 11 in Weight 121.7 kg Usual Body Weight 114 kg [place] Body Weight (kg) 78.18 BMI 37.4 Weight change and time frame Wt change noted. Likely r/t lasix usage Weight Status Obese Subjective/Other Information Screen for LOS. Pt reports having a good appetite adn eating 100% of meals. Pt requests double dinner portions to alleviate night time hunger. Pt also had question regarding outpatient services. Resources given to patient verbally. Percent of energy/protein needs met: 100%/100% Burn Absent Trauma Absent GI Symptoms None Food Allergy No Current % PO Good (75-100%) Minimum of two criteria No physical signs of malnutrition #1 Nutrition Diagnosis No nutrition diagnosis at this time Nutrition Intervention Change Diet Order: Continue regular diet Anticipated Discharge Needs: Cardiac Consistent Carbohydrate Diet Revisit per MD consult or patient Sign Off request: Additional Comments S/O excellent PO intake
[2021-01-17] MEDS: ENOXAPARIN 40 MG/0.4 ML INJ SUB-Q SCH (22:25)
[2021-01-18 06:08] LABS: Basophils # (Auto) 0.1 K/mm3 (0.0-0.1); Basophils % (Auto) 0.8 % (0.0-1.8); Eosinophils # (Auto) 0.2 K/mm3 (0.0-0.4); Hemoglobin 15.3 gm/dl (11.8-15.2); INR 1.14 (0.87-1.13); Lymphocytes # (Auto) 2.5 K/mm3 (1.2-5.4); Lymphocytes % (Auto) 32.2 % (13.4-35.0); Mean Corpuscular HGB Conc 33 % (32-34); Mean Corpuscular Volume 96 fl (84-94); Platelet Count 225 K/mm3 (140-440); Red Blood Count 4.81 M/mm3 (3.65-5.03); Red Cell Distribution Width 13.9 % (13.2-15.2)
[2021-01-18 06:43] LABS: BUN/Creatinine Ratio 14; Blood Urea Nitrogen 21 mg/dL (9-20); Calcium 9.4 mg/dL (8.4-10.2); Hemolysis Index 14
[2021-01-18] MEDS: BUMETANIDE 1 MG/4 ML INJ IV SCH ×2 (06:57→18:39)
[2021-01-18] MEDS: SPIRONOLACTONE 25 MG TAB PO SCH ×2 (09:09→10:03)
[2021-01-18] MEDS: FOLIC ACID 1 MG TAB PO SCH (09:09)
[2021-01-18] MEDS: THIAMINE 100 MG TAB PO SCH (09:10)
[2021-01-18] MEDS: MULTIVITAMINS ,THERAPEUTIC TAB PO SCH (10:01)
[2021-01-18] MEDS: LISINOPRIL 10 MG TAB PO SCH (10:02)
[2021-01-18] MEDS ORDERED: BUPIVACAINE/PF (0.5%) 5 MG/1 ML 30 ML VIAL INFILTRATI ONE (12:24)
[2021-01-18] MEDS ORDERED: LIDOCAINE (1%) 10 MG/1 ML VIAL 20 ML MDV ONE (12:24)
[2021-01-18] MEDS ORDERED: SODIUM CHLORIDE IRRI 1000 ML 1,000 ML, .VANCOMYCIN VIAL 1,000 MG IR ONE (12:24)
[2021-01-18] MEDS ORDERED: SODIUM CHLORIDE IRRI 500 ML 0 ML IR ONE (12:24)
[2021-01-18] MEDS ORDERED: ceFAZolin/Water 2 GM/20 ML 2 GM/20 ML SYRINGE IV ONE (12:25)
[2021-01-18] MEDS ORDERED: SODIUM CHLORIDE 0.9% 500 ML 500 ML ONE (12:25)
[2021-01-18] MEDS ORDERED: SODIUM CHLORIDE 0.9% 1000 ML 1,000 ML ONE (12:25)
[2021-01-18] MEDS ORDERED: HEPARIN/NS 5000 UNIT/500ML 0 ML IR ONE (12:47)
--- NOTE | 2021-01-18 13:05 | Anesthesia Day of Surgery ---
Anesthesia Day of Surgery - Day of Surgery Patient Examined: Yes Patient H&P Reviewed: Yes Patient is NPO: Yes
--- NOTE | 2021-01-18 13:10 | Anesthesia Consultation ---
Anesthesia Consult and Med Hx Date of service: 01/18/21 - Airway Anesthetic Teeth Evaluation: Chipped ROM Head & Neck: Adequate Mental/Hyoid Distance: Adequate Mallampati Class: Class II Intubation Access Assessment: Good - Pre-Operative Health Status ASA Pre-Surgery Classification: ASA3 Proposed Anesthetic Plan: MAC (GA if needed) - Pulmonary Hx Smoking: Yes Hx Asthma: No COPD: No Hx Pneumonia: No Hx Sleep Apnea: Yes (Non-compliant with CPAP) - Cardiovascular System Hx Hypertension: Yes (06/2020) Hx Coronary Artery Disease: Yes (Stent) Hx Cardia Arrhythmia: Yes (CHF) - Endocrine Hx Renal Disease: Yes (Had DAVID-hydrated now) Hx End Stage Renal Disease: No - Other Systems Hx Alcohol Use: Yes - Additional Comments Anesthesia Medical History Comments: Combined Systolic CHF and Diastolic CHF(EF 15%), CAD S/P Stent placement, HLD, DM. CHF Decompensation, Obesity Hypoventilation Syndrome. Echo done 12/14/20 showed EF 15-20%, LV severely dilated, RV systolic function mod reduced, RV slightly dilated, mild TR, RVSP 44mmHg. [facility] done 06/2019 showed normal coronaries, EF 15-20%.
--- NOTE | 2021-01-18 14:25 | Progress Note ---
Assessment and Plan Tele reviewed: ST 116, overnight high HR: ST 132. Intermittent bouts of Mobitz II 2:1. Pt for BiVICD implantation today. Continue CPAP therapy. Continue Diuresis. Will consider converting to PO diuretics tomorrow pending clinical course. Continue to monitor telemetry. Anticipate discharge tomorrow. The patient has been seen in conjunction with Dr. Fisher who agrees with the assessment and plan of care. - Patient Problems (1) Acute on chronic HFrEF (heart failure with reduced ejection fraction) Current Visit: Yes Status: Acute (2) Nonischemic cardiomyopathy Current Visit: Yes Status: Chronic (3) Normal coronary arteries Current Visit: Yes Status: Chronic (4) Uncontrolled hypertension Current Visit: Yes Status: Chronic (5) DAVID (acute kidney injury) Current Visit: Yes Status: Acute (6) Diabetes mellitus Current Visit: Yes Status: Chronic (7) Sleep apnea Current Visit: Yes Status: Chronic (8) Tobacco use Current Visit: Yes Status: Chronic (9) History of ETOH abuse Current Visit: Yes Status: Chronic (10) Medical noncompliance Current Visit: Yes Status: Chronic (11) High Degree AV Block Current Visit: Yes Status: Acute Subjective Date of service: 01/18/21 Principal diagnosis: Acute on chronic HFrEF, NICMP, AV block Interval history: Patient is resting in bed comfortably. Tele reviewed: ST 116, overnight high HR: ST 132. Intermittent bouts of Mobitz II 2:1. Objective Last Vital Signs Temp 98.1 F 01/18/21 07:32 Pulse 117 H 01/18/21 10:03 Resp 16 01/18/21 07:32 BP 97/76 01/18/21 10:03 Pulse Ox 95 01/18/21 07:32 - Physical Examination General: No Apparent Distress HEENT: Positive: EOMI, Normocephaly, Mucus Membranes Moist Neck: Positive: neck supple, trachea midline, JVD/HJR Cardiac: Positive: Reg Rate and Rhythm, S1/S2 Lungs: Positive: Normal Exam Neuro: Positive: Grossly Intact Abdomen: Positive: Soft, Active Bowel Sounds. Negative: Tender Skin: Negative: Rash Musculoskeletal: Normal Range of Motion Extremities: Present: upper extr. pulses, lower extr. pulses, edema (Trace edema, significantly improved) - Labs and Meds Coagulation 01/18/21 Range/Units 05:23 PT 14.5 (12.2-14.9) Sec. INR 1.14 H (0.87-1.13) CBC 01/18/21 Range/Units 05:23 WBC 7.6 (4.5-11.0) K/mm3 RBC 4.81 (3.65-5.03) M/mm3 Hgb 15.3 H (11.8-15.2) gm/dl Hct 46.0 H (35.5-45.6) % Plt Count 225 (140-440) K/mm3 Lymph # (Auto) 2.5 (1.2-5.4) K/mm3 [place] # (Auto) 1.0 H (0.0-0.8) K/mm3 Eos # (Auto) 0.2 (0.0-0.4) K/mm3 Baso # (Auto) 0.1 (0.0-0.1) K/mm3 Comprehensive Metabolic Panel 01/18/21 Range/Units 05:23 Sodium 139 (137-145) mmol/L Potassium 3.8 (3.6-5.0) mmol/L Chloride 93.2 L (98-107) mmol/L Carbon Dioxide 33 H (22-30) mmol/L BUN 21 H (9-20) mg/dL Creatinine 1.5 H (0.8-1.3) mg/dL Glucose 149 H (75-100) mg/dL Calcium 9.4 (8.4-10.2) mg/dL - Imaging and Cardiology EKG: report reviewed, image reviewed Echo: report reviewed (12/14/20 showed EF 15-20%, LV severely dilated, RV systolic function mod reduced, RV slightly dilated, mild TR, RVSP 44mmHg. ) Cardiac cath: report reviewed ( 06/2019 showed normal coronaries, EF 15-20%. ) - EKG Sinus rhythms and dysrhythmias: sinus rhythm AV and intraventricular conduction: advanced AV block
--- NOTE | 2021-01-18 15:28 | Progress Note ---
Assessment and Plan --High-grade heart block intermittent Complete heart block during sleep Biventricular ICD placement today per cardiology patient was advised LifeVest in the past , however noncompliant EP cardiology evaluated, no AV chiquita blocking agents Continue current management --Acute kidney injury; vasomotor nephropathy Resolved , continue gentle hydration, monitor renal function Avoid nephrotoxins, nephrology consult if needed --Hypokalemia; replenish Supplemented with 40 mEq oral KCl Monitor electrolytes -- Ac. On chronic systolic CHF , EF 15 to 20% Patient received dobutamine drip per cardiology strict input output monitoring,daily weight, fluid restriction Continue diuretics , beta-blockers held in view of heart block Will add CONSTANTINO inhibitors as renal function improved , supplemental oxygen, titrate O2 sats to more than 90% Patient is evaluated by EP cardiology for possible biventricular ICD placement tomorrow --Hypertension Moderate control, continue current antihypertensives --Hyperlipidemia Stable on low-cholesterol diet and statin therapy --Obesity hypoventilation syndrome Patient advised dietary modification exercise as tolerated and weight reduction when medically stable --Nicotine dependence Smoking cessation counseling, Nicotine patch as needed --Type II diabetes Accu-Chek sliding scale coverage ADA diet Insulin as needed -- Alcohol dependence: Counseling strongly advised to quit alcohol intake Advised to seek alcohol rehabilitation And AAA support group --Alcohol withdrawal symptoms Initiate CIWA protocol, thiamine, folic acid, multivitamin daily -- DVT prophylaxis SCD/ Lovenox Patient is noncompliant with LifeVest EP physician general practice planning ICD placement tomorrow Patient n.p.o. from midnight Closely monitor the patient and adjust management as needed Plan of care reviewed with the patient and his nurse Brief history; 40 year old male with a past medical history of systolic CHF, dilated NICMP EF15-20%, normal coronaries via LHC, prior ETOH abuse, HTN, HLD, DM, DIANN noncompliant with CPAP, patient was advised LifeVest however patient was noncompliant does not use anymore was admitted through emergency room with atypical chest pain, bradyarrhythmia . Cardiology evaluated the patient patient received dobutamine drip, however developed intermittent high-grade heart block and complete heart block during sleep. EP physician general practice evaluated the patient, planning AICD tomorrow Echo done 12/14/20 showed EF 15-20%, LV severely dilated, RV systolic function mod reduced, RV slightly dilated, mild TR, RVSP 44mmHg. LHC done 06/2019 showed normal coronaries, EF 15-20%. Daily Clinical course: 01/12/2021; patient is on dobutamine drip, feels slightly better Patient is downgraded to telemetry from [facility], will optimize medication PT evaluation and recommendations Possible discharge in 1 to 2 days if stable and cleared by cardiology 01/13/2021; patient completed dobutamine drip per cardiology Optimize medications, mild hypokalemia replace with KCl Cardiology considering ICD placement 01/14/2021; continue current management. Plans of AICD 01/15/2021; EP cardiology has evaluated the patient Plan to do biventricular ICD placement 01/16/2021; hypokalemia, replenished with 40 mEq KCl x1 dose ICD placement next week 01/17/2021; AICD tomorrow, n.p.o. from midnight 01/18: Patient clinically stable, waiting for AICD placement today. Continue current management and plan, follow clinically. Discharge planning cardiology. Subjective Date of service: 01/18/21 Principal diagnosis: Acute on chronic HFrEF, NICMP, AV block Interval history: Patient seen and examined. Medical records and medication list reviewed. No acute event overnight noted by the RN. Patient denies any chest pain or difficulty breathing. Plan for AICD placement today Discussed plan of care at bedside with patient. Objective - Exam Narrative Exam: GENERAL: well-developed and well-nourished -[place] male lying on bed appeared to be in no discomfort. HEENT: Normocephalic. Atraumatic. No conjunctival congestion or icterus. Patient has moist mucous membranes. NECK: Supple. Trachea midline. CHEST/LUNGS: Clear to auscultated bilaterally, breathing nonlabored. No wheezes crackles or rhonchi. HEART/CARDIOVASCULAR: Regular in rate and rhythm. S1 and S2 positive. ABDOMEN: Abdomen is soft, nontender. Patient has normal bowel sounds. SKIN: There is no rash. Warm and dry. NEURO: No focal motor deficit. Follows command. MUSCULOSKELETAL: No joint effusion or tenderness. EXTRIMITY: No edema, no cyanosis or clubbing. PSYCH: Cooperative. - Constitutional Vitals: Vital Signs - 12hr 01/18/21 01/18/21 01/18/21 03:35 07:32 10:00 Temperature 98.1 F 98.1 F Pulse Rate 119 H 51 L 114 H Pulse Rate [ 121 H From Monitor] Respiratory 16 16 18 Rate Blood Pressure 124/71 98/69 O2 Sat by Pulse 95 95 Oximetry 01/18/21 01/18/21 10:02 10:03 Temperature Pulse Rate 117 H 117 H Pulse Rate [ From Monitor] Respiratory Rate Blood Pressure 97/76 97/76 O2 Sat by Pulse Oximetry - Labs CBC & Chem 7: 01/18/21 05:23 01/18/21 05:23 Labs: Abnormal lab results 01/18/21 01/18/21 01/18/21 Range/Units 05:23 05:23 05:23 Hgb 15.3 H (11.8-15.2) gm/dl Hct 46.0 H (35.5-45.6) % MCV 96 H (84-94) fl [place] % (Auto) 13.0 H (0.0-7.3) % [place] # (Auto) 1.0 H (0.0-0.8) K/mm3 INR 1.14 H (0.87-1.13) Chloride 93.2 L (98-107) mmol/L Carbon Dioxide 33 H (22-30) mmol/L BUN 21 H (9-20) mg/dL Creatinine 1.5 H (0.8-1.3) mg/dL Glucose 149 H (75-100) mg/dL HEART Score - HEART Score Troponin: Troponin T < 0.010 ng/mL (0.00-0.029) 01/09/21 10:41
[2021-01-18] MEDS ORDERED: fentaNYL 100 MCG/2 ML INJ ONE (15:49)
[2021-01-18] MEDS ORDERED: MIDAZOLAM 2 MG/2 ML INJ ONE (15:49)
[2021-01-18] MEDS: metOLazone 5 MG TAB PO SCH (18:21)
--- NOTE | 2021-01-18 19:06 | Post Anesthesia Evaluation ---
- Post Anesthesia Evaluation Patient Participated: Yes Airway Patent: Yes Stable Respiratory Function: Yes Nausea/Vomiting: No Temp > 96.8F: Yes Pain Manageable: Yes Adequeate Hydration: Yes Anesthesia Complications: No Block Receding Appropriately: Not Applicable Patient on Ventilator: No
[2021-01-18] MEDS: ENOXAPARIN 40 MG/0.4 ML INJ SUB-Q SCH (21:29)
[2021-01-19] MEDS: BUMETANIDE 1 MG/4 ML INJ IV SCH (06:32)
[2021-01-19] MEDS: THIAMINE 100 MG TAB PO SCH (09:52)
[2021-01-19] MEDS: FOLIC ACID 1 MG TAB PO SCH (09:52)
[2021-01-19] MEDS: LISINOPRIL 10 MG TAB PO SCH (09:52)
[2021-01-19] MEDS: MULTIVITAMINS ,THERAPEUTIC TAB PO SCH (09:52)
[2021-01-19] MEDS: SPIRONOLACTONE 25 MG TAB PO SCH (09:52)
--- NOTE | 2021-01-19 09:57 | XRay Report ---
CHEST 1 VIEW 01/19/2021 8:47 AM INDICATION / CLINICAL INFORMATION: s/p AICD implantation. COMPARISON: 01/09/2021 FINDINGS: SUPPORT DEVICES: None. HEART / MEDIASTINUM: Stable. LUNGS / PLEURA: No significant pulmonary or pleural abnormality. No pneumothorax. ADDITIONAL FINDINGS: No significant additional findings. IMPRESSION: 1. No acute findings or significant interval change when compared to 01/09/2021. Signer Name: Federico Leach MD Signed: 01/19/2021 9:52 AM Workstation Name: [id number]
--- NOTE | 2021-01-19 10:22 | Progress Note ---
Assessment and Plan BiVAICD implantation yesterday was cancelled due to agitation. Pt rescheduled for BiVICD implantation tomorrow with general anesthesia. NPO after midnight. Tele reviewed: ST 116, no events. Pt appears to be nearing euvolemia. Convert IV bumex to PO. Repeat BMP in AM. Continue CPAP therapy. Continue to monitor telemetry. Will follow. The patient has been seen in conjunction with Dr. Fisher who agrees with the assessment and plan of care. - Patient Problems (1) Acute on chronic HFrEF (heart failure with reduced ejection fraction) Current Visit: Yes Status: Acute (2) Nonischemic cardiomyopathy Current Visit: Yes Status: Chronic (3) Normal coronary arteries Current Visit: Yes Status: Chronic (4) Uncontrolled hypertension Current Visit: Yes Status: Chronic (5) DAVID (acute kidney injury) Current Visit: Yes Status: Acute (6) Diabetes mellitus Current Visit: Yes Status: Chronic (7) Sleep apnea Current Visit: Yes Status: Chronic (8) Tobacco use Current Visit: Yes Status: Chronic (9) History of ETOH abuse Current Visit: Yes Status: Chronic (10) Medical noncompliance Current Visit: Yes Status: Chronic (11) High Degree AV Block Current Visit: Yes Status: Acute Subjective Date of service: 01/19/21 Principal diagnosis: Acute on chronic HFrEF, NICMP, AV block Interval history: Patient is resting in bed comfortably. Tele reviewed: ST 116, no events. Objective Last Vital Signs Temp 98.1 F 01/19/21 07:30 Pulse 112 H 01/19/21 07:30 Resp 16 01/19/21 07:30 BP 110/73 01/19/21 07:30 Pulse Ox 97 01/19/21 07:30 - Physical Examination General: No Apparent Distress HEENT: Positive: EOMI, Normocephaly, Mucus Membranes Moist Neck: Positive: neck supple, trachea midline, JVD/HJR Cardiac: Positive: Reg Rate and Rhythm, S1/S2 Lungs: Positive: clear to auscultation, Normal Breath Sounds Neuro: Positive: Grossly Intact Abdomen: Positive: Soft, Active Bowel Sounds. Negative: Tender Skin: Negative: Rash Musculoskeletal: Normal Range of Motion Extremities: Present: upper extr. pulses, lower extr. pulses, edema (Trace edema, significantly improved) - Imaging and Cardiology EKG: report reviewed, image reviewed Echo: report reviewed (12/14/20 showed EF 15-20%, LV severely dilated, RV systolic function mod reduced, RV slightly dilated, mild TR, RVSP 44mmHg. ) Cardiac cath: report reviewed ( 06/2019 showed normal coronaries, EF 15-20%. ) - Telemetry EKG Rhythm: Sinus Tachycardia - EKG Sinus rhythms and dysrhythmias: sinus rhythm AV and intraventricular conduction: advanced AV block
[2021-01-19 15:01] LABS: Hematocrit 47.7 % (35.5-45.6); Hemoglobin 15.8 gm/dl (11.8-15.2); Mean Corpuscular HGB Conc 33 % (32-34); Mean Corpuscular Volume 95 fl (84-94); Platelet Count 234 K/mm3 (140-440); Red Blood Count 5.02 M/mm3 (3.65-5.03)
[2021-01-19 15:16] LABS: Calcium 9.1 mg/dL (8.4-10.2)
[2021-01-19] MEDS: BUMETANIDE 1 MG TAB PO SCH (17:25)
--- NOTE | 2021-01-19 17:27 | Progress Note ---
Assessment and Plan --High-grade heart block intermittent Complete heart block during sleep Biventricular ICD placement tomorrow per cardiology patient was advised LifeVest in the past , however noncompliant EP cardiology evaluated, no AV chiquita blocking agents Continue current management --Acute kidney injury; vasomotor nephropathy Resolved , continue gentle hydration, monitor renal function Avoid nephrotoxins, nephrology consult if needed --Hypokalemia; replenish Supplemented with 40 mEq oral KCl Monitor electrolytes -- Ac. On chronic systolic CHF , EF 15 to 20% Patient received dobutamine drip per cardiology strict input output monitoring,daily weight, fluid restriction Continue diuretics , beta-blockers held in view of heart block Will add CONSTANTINO inhibitors as renal function improved , supplemental oxygen, titrate O2 sats to more than 90% Patient is evaluated by EP cardiology for possible biventricular ICD placement tomorrow --Hypertension Moderate control, continue current antihypertensives --Hyperlipidemia Stable on low-cholesterol diet and statin therapy --Obesity hypoventilation syndrome Patient advised dietary modification exercise as tolerated and weight reduction when medically stable --Nicotine dependence Smoking cessation counseling, Nicotine patch as needed --Type II diabetes Accu-Chek sliding scale coverage ADA diet Insulin as needed -- Alcohol dependence: Counseling strongly advised to quit alcohol intake Advised to seek alcohol rehabilitation And AAA support group --Alcohol withdrawal symptoms Initiated CIWA protocol, thiamine, folic acid, multivitamin daily -- DVT prophylaxis SCD/ Lovenox Patient is noncompliant with LifeVest EP balance wheel screw hole tapper planning ICD placement tomorrow Patient n.p.o. from midnight Closely monitor the patient and adjust management as needed Plan of care reviewed with the patient and his nurse Brief history; 40 year old male with a past medical history of systolic CHF, dilated NICMP EF15-20%, normal coronaries via LHC, prior ETOH abuse, HTN, HLD, DM, DIANN noncompliant with CPAP, patient was advised LifeVest however patient was noncompliant does not use anymore was admitted through emergency room with atypical chest pain, bradyarrhythmia . Cardiology evaluated the patient patient received dobutamine drip, however developed intermittent high-grade heart block and complete heart block during sleep. EP balance wheel screw hole tapper evaluated the patient, planning AICD tomorrow Echo done 12/14/20 showed EF 15-20%, LV severely dilated, RV systolic function mod reduced, RV slightly dilated, mild TR, RVSP 44mmHg. LHC done 06/2019 showed normal coronaries, EF 15-20%. Daily Clinical course: 01/12/2021; patient is on dobutamine drip, feels slightly better, Patient is downgraded to telemetry from [facility], will optimize medication. PT evaluation and recommendations, Possible discharge in 1 to 2 days if stable and cleared by cardiology 01/13/2021; patient completed dobutamine drip per cardiology, Optimize medications, mild hypokalemia replace with KCl. Cardiology considering ICD placement 01/14/2021; continue current management. Plans of AICD 01/15/2021; EP cardiology has evaluated the patient, Plan to do biventricular ICD placement 01/16/2021; hypokalemia, replenished with 40 mEq KCl x1 dose, ICD placement next week 01/17/2021; AICD tomorrow, n.p.o. from midnight. 01/18: Patient clinically stable, waiting for AICD placement today. Continue current management and plan, follow clinically. Discharge planning cardiology. 01/19; replete potassium, creatinine slightly elevated today. Monitor BMP tomorrow. Patient could not get AICD placement yesterday as he became agitated following anesthesia. Plan for AICD placement tomorrow. Follow clinically. Subjective Date of service: 01/19/21 Principal diagnosis: Acute on chronic HFrEF, NICMP, AV block Interval history: Patient seen and examined. Medical records and medication list reviewed. No acute event overnight noted by the RN. Patient denies any chest pain or difficulty breathing. Plan for AICD placement tomorrow Discussed plan of care at bedside with patient. Objective - Exam Narrative Exam: GENERAL: well-developed and well-nourished -[place] male lying on bed appeared to be in no discomfort. HEENT: Normocephalic. Atraumatic. No conjunctival congestion or icterus. Patient has moist mucous membranes. NECK: Supple. Trachea midline. CHEST/LUNGS: Clear to auscultated bilaterally, breathing nonlabored. No wheezes crackles or rhonchi. HEART/CARDIOVASCULAR: Regular in rate and rhythm. S1 and S2 positive. ABDOMEN: Abdomen is soft, nontender. Patient has normal bowel sounds. SKIN: There is no rash. Warm and dry. NEURO: No focal motor deficit. Follows command. MUSCULOSKELETAL: No joint effusion or tenderness. EXTRIMITY: No edema, no cyanosis or clubbing. PSYCH: Cooperative. - Constitutional Vitals: Vital Signs - 12hr 01/19/21 01/19/21 01/19/21 07:29 07:30 10:00 Temperature 98.1 F Pulse Rate 113 H 112 H 109 H Respiratory 16 Rate Blood Pressure 59/39 110/73 O2 Sat by Pulse 98 97 Oximetry 01/19/21 01/19/21 11:25 16:51 Temperature 97.8 F 97.8 F Pulse Rate 117 H 110 H Respiratory 16 16 Rate Blood Pressure 93/70 89/69 O2 Sat by Pulse 97 96 Oximetry - Labs CBC & Chem 7: 01/20/21 04:34 01/20/21 04:34 Labs: Abnormal lab results 01/19/21 01/19/21 Range/Units 14:26 14:26 Hgb 15.8 H (11.8-15.2) gm/dl Hct 47.7 H (35.5-45.6) % MCV 95 H (84-94) fl Sodium 131 L D (137-145) mmol/L Potassium 3.4 L (3.6-5.0) mmol/L Chloride 89.5 L (98-107) mmol/L Carbon Dioxide 34 H (22-30) mmol/L BUN 27 H (9-20) mg/dL Creatinine 1.6 H (0.8-1.3) mg/dL Glucose 212 H (75-100) mg/dL HEART Score - HEART Score Troponin: Troponin T < 0.010 ng/mL (0.00-0.029) 01/09/21 10:41
[2021-01-19] MEDS ORDERED: POTASSIUM CHLORIDE ER 20 MEQ TAB PO ONE (18:25)
[2021-01-19] MEDS: ENOXAPARIN 40 MG/0.4 ML INJ SUB-Q SCH (21:33)
[2021-01-20 05:31] LABS: Hematocrit 47.1 % (35.5-45.6); Hemoglobin 15.9 gm/dl (11.8-15.2); Mean Corpuscular HGB Conc 34 % (32-34); Mean Corpuscular Volume 95 fl (84-94); Platelet Count 229 K/mm3 (140-440); Red Blood Count 4.94 M/mm3 (3.65-5.03); Red Cell Distribution Width 13.8 % (13.2-15.2)
[2021-01-20 05:36] LABS: BUN/Creatinine Ratio 22; Blood Urea Nitrogen 29 mg/dL (9-20); Hemolysis Index 13
[2021-01-20] MEDS: BUMETANIDE 1 MG TAB PO SCH ×2 (06:14→17:53)
[2021-01-20] MEDS ORDERED: SODIUM CHLORIDE 0.45% 1000 ML 1,000 ML IV SCH (08:00)
[2021-01-20] MEDS ORDERED: VANCOMYCIN 1,500 MG in SODIUM CHLORIDE 0.9% 500 ML 500 ML IV SCH (08:00)
[2021-01-20] MEDS ORDERED: VANCOMYCIN/NS 1 GM/250 ML 1 GM/250 ML BAG IV NR (08:00)
[2021-01-20] MEDS ORDERED: SODIUM CHLORIDE 0.9% 1000 ML 1,000 ML ONE ×2 (08:03→11:44)
--- NOTE | 2021-01-20 08:13 | Anesthesia Day of Surgery ---
Anesthesia Day of Surgery - Day of Surgery Patient Examined: Yes Patient H&P Reviewed: Yes Patient is NPO: Yes
[2021-01-20] MEDS ORDERED: KETAMINE/STERILE WATER 50 MG/ML SYRINGE ONE (08:17)
[2021-01-20] MEDS ORDERED: SODIUM CHLORIDE 0.9% 250ML 250 ML ONE (08:22)
[2021-01-20] MEDS ORDERED: SODIUM CHLORIDE 0.9% 1000 ML 1,000 ML IV SCH (08:30)
[2021-01-20] MEDS ORDERED: SODIUM CHLORIDE IRRI 1000 ML 1,000 ML, .VANCOMYCIN VIAL 1,000 MG IR ONE (08:30)
[2021-01-20] MEDS ORDERED: LIDOCAINE (1%) 10 MG/1 ML VIAL 20 ML MDV ONE (10:40)
[2021-01-20] MEDS ORDERED: BUPIVACAINE/PF (0.5%) 5 MG/1 ML 30 ML VIAL INFILTRATI ONE (10:40)
[2021-01-20] MEDS ORDERED: SODIUM CHLORIDE IRRI 500 ML 500 ML IR ONE (10:40)
[2021-01-20] MEDS ORDERED: ceFAZolin/Water 2 GM/20 ML 0 GM/0 ML SYRINGE IV ONE (10:40)
[2021-01-20] MEDS ORDERED: ePHEDrine SULFATE 50 MG/1 ML INJ ONE (11:01)
[2021-01-20] MEDS ORDERED: LIDOCAINE PF 100 MG/5 ML (CARDIAC SYRINGE) IV ONE (11:04)
[2021-01-20] MEDS ORDERED: SODIUM CHLORIDE 0.9% 500 ML 500 ML ONE (11:04)
[2021-01-20] MEDS ORDERED: HEPARIN/NS 5000 UNIT/500ML 500 ML IR ONE (11:22)
[2021-01-20] MEDS ORDERED: propofoL 200 MG/20 ML VIAL IV ONE ×2 (12:46)
[2021-01-20] MEDS ORDERED: .VANCOMYCIN VIAL 1,000 MG in SODIUM CHLORIDE IRRI 1000 ML 1,000 ML IRRIGATION ONE (13:38)
--- NOTE | 2021-01-20 14:44 | Progress Note ---
Assessment and Plan Pt is s/p BiVAICD implantation. Tele reviewed: ST 105, no events. Resume Coreg in setting of Cardiomyopathy, s/p BiVICD placement for AV Block. Continue Bumex 1mg PO BID. Continue CPAP therapy. Continue to monitor telemetry. F/u with our office in [place] on 01/27/2021 at 10:30am for Dressing removal and device interrogation. F/u with Dr Fisher in our [place] office on 02/15/21 at 3:15pm. Anticipate discharge tomorrow pending device interrogation. The patient has been seen in conjunction with Dr. Fisher who agrees with the assessment and plan of care. - Patient Problems (1) Acute on chronic HFrEF (heart failure with reduced ejection fraction) Current Visit: Yes Status: Acute (2) Nonischemic cardiomyopathy Current Visit: Yes Status: Chronic (3) Normal coronary arteries Current Visit: Yes Status: Chronic (4) Uncontrolled hypertension Current Visit: Yes Status: Chronic (5) DAVID (acute kidney injury) Current Visit: Yes Status: Acute (6) Diabetes mellitus Current Visit: Yes Status: Chronic (7) Sleep apnea Current Visit: Yes Status: Chronic (8) Tobacco use Current Visit: Yes Status: Chronic (9) History of ETOH abuse Current Visit: Yes Status: Chronic (10) Medical noncompliance Current Visit: Yes Status: Chronic (11) High Degree AV Block Current Visit: Yes Status: Acute (12) BiVICD in Situ Current Visit: Yes Status: Acute Subjective Date of service: 01/20/21 Principal diagnosis: Acute on chronic HFrEF, NICMP, AV block Interval history: Patient seen in recovery s/p BiVICD placement. Tele reviewed: ST 105, no events. Objective Last Vital Signs Temp 98.5 F 01/20/21 04:52 Pulse 110 H 01/20/21 04:52 Resp 20 01/20/21 04:52 BP 101/72 01/20/21 04:52 Pulse Ox 94 01/20/21 04:52 - Physical Examination General: No Apparent Distress HEENT: Positive: EOMI, Normocephaly, Mucus Membranes Moist Neck: Positive: neck supple, trachea midline, JVD/HJR Cardiac: Positive: Reg Rate and Rhythm, S1/S2 Lungs: Positive: clear to auscultation, Normal Breath Sounds Neuro: Positive: Grossly Intact Abdomen: Positive: Soft, Active Bowel Sounds. Negative: Tender Skin: Negative: Rash Musculoskeletal: Normal Range of Motion Extremities: Present: upper extr. pulses, lower extr. pulses, edema (Trace edema, significantly improved) - Labs and Meds CBC 01/19/21 01/20/21 Range/Units 14:26 04:34 WBC 7.7 8.3 (4.5-11.0) K/mm3 RBC 5.02 4.94 (3.65-5.03) M/mm3 Hgb 15.8 H 15.9 H (11.8-15.2) gm/dl Hct 47.7 H 47.1 H (35.5-45.6) % Plt Count 234 229 (140-440) K/mm3 Comprehensive Metabolic Panel 01/19/21 01/20/21 Range/Units 14:26 04:34 Sodium 131 L D 133 L (137-145) mmol/L Potassium 3.4 L 3.6 (3.6-5.0) mmol/L Chloride 89.5 L 93.3 L (98-107) mmol/L Carbon Dioxide 34 H 29 (22-30) mmol/L BUN 27 H 29 H (9-20) mg/dL Creatinine 1.6 H 1.3 (0.8-1.3) mg/dL Glucose 212 H 147 H (75-100) mg/dL Calcium 9.1 9.0 (8.4-10.2) mg/dL - Imaging and Cardiology EKG: report reviewed, image reviewed Echo: report reviewed (12/14/20 showed EF 15-20%, LV severely dilated, RV systolic function mod reduced, RV slightly dilated, mild TR, RVSP 44mmHg. ) Cardiac cath: report reviewed ( 06/2019 showed normal coronaries, EF 15-20%. ) - Telemetry EKG Rhythm: Sinus Tachycardia - EKG Sinus rhythms and dysrhythmias: sinus rhythm
--- NOTE | 2021-01-20 15:18 | Post Anesthesia Evaluation ---
- Post Anesthesia Evaluation Patient Participated: Yes Airway Patent: Yes Stable Respiratory Function: Yes Nausea/Vomiting: No Temp > 96.8F: Yes Pain Manageable: Yes Adequeate Hydration: Yes Anesthesia Complications: No Block Receding Appropriately: Not Applicable Patient on Ventilator: Yes
--- NOTE | 2021-01-20 16:07 | Progress Note ---
Assessment and Plan --High-grade heart block intermittent Complete heart block during sleep Biventricular ICD placement tomorrow per cardiology patient was advised LifeVest in the past , however noncompliant EP cardiology evaluated, no AV chiquita blocking agents Continue current management --Acute kidney injury; vasomotor nephropathy Resolved , continue gentle hydration, monitor renal function Avoid nephrotoxins, nephrology consult if needed --Hypokalemia; replenish Supplemented with 40 mEq oral KCl Monitor electrolytes -- Ac. On chronic systolic CHF , EF 15 to 20% Patient received dobutamine drip per cardiology strict input output monitoring,daily weight, fluid restriction Continue diuretics , beta-blockers held in view of heart block Will add CONSTANTINO inhibitors as renal function improved , supplemental oxygen, titrate O2 sats to more than 90% Patient is evaluated by EP cardiology for possible biventricular ICD placement tomorrow --Hypertension Moderate control, continue current antihypertensives --Hyperlipidemia Stable on low-cholesterol diet and statin therapy --Obesity hypoventilation syndrome Patient advised dietary modification exercise as tolerated and weight reduction when medically stable --Nicotine dependence Smoking cessation counseling, Nicotine patch as needed --Type II diabetes Accu-Chek sliding scale coverage ADA diet Insulin as needed -- Alcohol dependence: Counseling strongly advised to quit alcohol intake Advised to seek alcohol rehabilitation And AAA support group --Alcohol withdrawal symptoms Initiated CIWA protocol, thiamine, folic acid, multivitamin daily -- DVT prophylaxis SCD/ Lovenox Patient is noncompliant with LifeVest EP other spatial scientist planning ICD placement tomorrow Patient n.p.o. from midnight Closely monitor the patient and adjust management as needed Plan of care reviewed with the patient and his nurse Brief history; 40 year old male with a past medical history of systolic CHF, dilated NICMP EF15-20%, normal coronaries via LHC, prior ETOH abuse, HTN, HLD, DM, DIANN noncompliant with CPAP, patient was advised LifeVest however patient was noncompliant does not use anymore was admitted through emergency room with atypical chest pain, bradyarrhythmia . Cardiology evaluated the patient patient received dobutamine drip, however developed intermittent high-grade heart block and complete heart block during sleep. EP other spatial scientist evaluated the patient, s/p AICD placement today Echo done 12/14/20 showed EF 15-20%, LV severely dilated, RV systolic function mod reduced, RV slightly dilated, mild TR, RVSP 44mmHg. LHC done 06/2019 showed normal coronaries, EF 15-20%. Daily Clinical course: 01/12/2021; patient is on dobutamine drip, feels slightly better, Patient is downgraded to telemetry from [facility], will optimize medication. PT evaluation and recommendations, Possible discharge in 1 to 2 days if stable and cleared by cardiology 01/13/2021; patient completed dobutamine drip per cardiology, Optimize medications, mild hypokalemia replace with KCl. Cardiology considering ICD placement 01/14/2021; continue current management. Plans of AICD 01/15/2021; EP cardiology has evaluated the patient, Plan to do biventricular ICD placement 01/16/2021; hypokalemia, replenished with 40 mEq KCl x1 dose, ICD placement next week 01/17/2021; AICD tomorrow, n.p.o. from midnight. 01/18: Patient clinically stable, waiting for AICD placement today. Continue current management and plan, follow clinically. Discharge planning cardiology. 01/19; replete potassium, creatinine slightly elevated today. Monitor BMP tomorrow. Patient could not get AICD placement yesterday as he became agitated following anesthesia. Plan for AICD placement tomorrow. Follow clinically. 01/20: Status post AICD placement today. Continue to monitor telemetry. If clinically stable possible discharge in the morning Subjective Date of service: 01/20/21 Principal diagnosis: Acute on chronic HFrEF, NICMP, AV block Interval history: Patient seen and examined. Medical records and medication list reviewed. No acute event overnight noted by the RN. Patientc/o pain at the left upper chest AICD area. s/p AICD placement today Discussed plan of care at bedside with patient. Objective - Exam Narrative Exam: GENERAL: well-developed and well-nourished -Thai male lying on bed appeared to be in no discomfort. HEENT: Normocephalic. Atraumatic. No conjunctival congestion or icterus. Patient has moist mucous membranes. NECK: Supple. Trachea midline. CHEST/LUNGS: Clear to auscultated bilaterally, breathing nonlabored. No wheezes crackles or rhonchi. wound dressing on left chest intact HEART/CARDIOVASCULAR: Regular in rate and rhythm. S1 and S2 positive. ABDOMEN: Abdomen is soft, nontender. Patient has normal bowel sounds. SKIN: There is no rash. Warm and dry. NEURO: No focal motor deficit. Follows command. MUSCULOSKELETAL: No joint effusion or tenderness. EXTRIMITY: No edema, no cyanosis or clubbing. PSYCH: Cooperative. - Constitutional Vitals: Vital Signs - 12hr 01/20/21 01/20/21 01/20/21 04:52 14:37 14:40 Temperature 98.5 F 97.3 F L Pulse Rate 110 H 94 H 86 Respiratory 20 18 25 H Rate Blood Pressure 101/72 61/42 67/29 O2 Sat by Pulse 94 100 100 Oximetry 01/20/21 01/20/21 01/20/21 14:45 14:50 14:55 Temperature Pulse Rate 86 107 H 115 H Respiratory 21 20 20 Rate Blood Pressure 62/35 90/58 128/97 O2 Sat by Pulse 100 100 98 Oximetry 01/20/21 01/20/21 15:00 15:05 Temperature Pulse Rate 120 H 118 H Respiratory 19 20 Rate Blood Pressure 109/78 101/78 O2 Sat by Pulse 98 100 Oximetry - Labs CBC & Chem 7: 01/20/21 04:34 01/20/21 04:34 Labs: Abnormal lab results 01/20/21 01/20/21 01/20/21 Range/Units 04:34 04:34 14:50 Hgb 15.9 H (11.8-15.2) gm/dl Hct 47.1 H (35.5-45.6) % MCV 95 H (84-94) fl Sodium 133 L (137-145) mmol/L Chloride 93.3 L (98-107) mmol/L BUN 29 H (9-20) mg/dL Glucose 147 H (75-100) mg/dL POC Glucose 134 H (70-105) mg/dL HEART Score - HEART Score Troponin: Troponin T < 0.010 ng/mL (0.00-0.029) 01/09/21 10:41
[2021-01-20] MEDS: LISINOPRIL 10 MG TAB PO SCH (16:39)
[2021-01-20] MEDS: MULTIVITAMINS ,THERAPEUTIC TAB PO SCH (16:45)
[2021-01-20] MEDS: THIAMINE 100 MG TAB PO SCH (16:46)
[2021-01-20] MEDS: FOLIC ACID 1 MG TAB PO SCH (16:46)
[2021-01-20] MEDS: SPIRONOLACTONE 25 MG TAB PO SCH (16:47)
--- NOTE | 2021-01-20 16:51 | XRay Report ---
CHEST 1 VIEW 01/20/2021 2:17 PM INDICATION / CLINICAL INFORMATION: Pacemaker Postop. COMPARISON: 01/19/21 FINDINGS: SUPPORT DEVICES: None. HEART / MEDIASTINUM: Heart is enlarged but stable. Interval placement of left-sided biventricular AIC D in expected position. LUNGS / PLEURA: No significant pulmonary or pleural abnormality. No pneumothorax. ADDITIONAL FINDINGS: No significant additional findings. IMPRESSION: 1. Satisfactory appearance of pacemaker. Signer Name: Awa Almanza MD Signed: 01/20/2021 4:47 PM Workstation Name: [id number]
[2021-01-20] MEDS: carvediloL 3.125 MG TAB PO SCH ×2 (17:54→21:55)
[2021-01-20] MEDS: ceFAZolin/NS 1 GM/50 ML 1 GM/50 ML BAG IV SCH (17:58)
[2021-01-20] MEDS: ENOXAPARIN 40 MG/0.4 ML INJ SUB-Q SCH (21:54)
[2021-01-21] MEDS: ceFAZolin/NS 1 GM/50 ML 1 GM/50 ML BAG IV SCH (01:23)
[2021-01-21] MEDS: BUMETANIDE 1 MG TAB PO SCH (05:52)
[2021-01-21] MEDS: FOLIC ACID 1 MG TAB PO SCH (09:50)
[2021-01-21] MEDS: MULTIVITAMINS ,THERAPEUTIC TAB PO SCH (09:50)
[2021-01-21] MEDS: LISINOPRIL 10 MG TAB PO SCH (09:50)
[2021-01-21] MEDS: carvediloL 3.125 MG TAB PO SCH (09:50)
[2021-01-21] MEDS: SPIRONOLACTONE 25 MG TAB PO SCH (09:50)
[2021-01-21] MEDS: THIAMINE 100 MG TAB PO SCH (09:50)
--- NOTE | 2021-01-21 10:20 | Discharge Summary ---
Providers - Providers Date of Admission: 01/09/21 12:42 Date of discharge: 01/21/21 Attending physician: SUSHMA ROSA 01/09/21 12:01 Consult to Cardiology [CONS] Routine Consulting Provider: WESTLEY BARBER Reason For Exam: CHF exacerbation Primary care physician: MACHINE SPECIALIST Hospitalization Condition: Serious Hospital course: 40 year old male with a past medical history of systolic CHF, dilated NICMP EF15-20%, normal coronaries via LHC, prior ETOH abuse, HTN, HLD, DM, DIANN noncompliant with CPAP, patient was advised LifeVest however patient was noncompliant was admitted through emergency room with atypical chest pain, bradyarrhythmia . Cardiology evaluated the patient patient received dobutamine drip, however developed intermittent high-grade heart block and complete heart block during sleep. EP city dispatcher evaluated the patient, s/p AICD placement yesterday, patient tolerated the procedure well. Patient was interrogated for AICD today and cleared by city dispatcher for discharge. Patient was instructed to follow-up at cardiology office for dressing removal and further outpatient follow-up Echo done 12/14/20 showed EF 15-20%, LV severely dilated, RV systolic function mod reduced, RV slightly dilated, mild TR, RVSP 44mmHg. LHC done 06/2019 showed normal coronaries, EF 15-20%. Daily Clinical course: 01/12/2021; patient is on dobutamine drip, feels slightly better, Patient is downgraded to telemetry from [facility], will optimize medication. PT evaluation and recommendations, Possible discharge in 1 to 2 days if stable and cleared by cardiology 01/13/2021; patient completed dobutamine drip per cardiology, Optimize medications, mild hypokalemia replace with KCl. Cardiology considering ICD placement 01/14/2021; continue current management. Plans of AICD 01/15/2021; EP cardiology has evaluated the patient, Plan to do biventricular ICD placement 01/16/2021; hypokalemia, replenished with 40 mEq KCl x1 dose, ICD placement next week 01/17/2021; AICD tomorrow, n.p.o. from midnight. 01/18: Patient clinically stable, waiting for AICD placement today. Continue current management and plan, follow clinically. Discharge planning cardiology. 01/19; replete potassium, creatinine slightly elevated today. Monitor BMP tomorrow. Patient could not get AICD placement yesterday as he became agitated following anesthesia. Plan for AICD placement tomorrow. Follow clinically. 01/20: Status post AICD placement today. Continue to monitor telemetry. If clinically stable possible discharge in the morning 0-01/21: Interrogated AICD today, cardiology cleared for discharge. Patient was instructed to follow-up city dispatcher office for wound dressing removal and further outpatient care. Discharge plan and management was thoroughly discussed with the patient and he verbalized understanding. Disposition: DC-01 TO HOME OR SELFCARE Final Discharge Diagnosis (Prints w/discharge instructions): Acute on chronic systolic: Hypokalemia, DAVID with vasomotor nephropathy, high-grade intermittent heart block, hypertension, hyperlipidemia, obesity hypoventilation syndrome, nicotine dependence, type 2 diabetes, alcohol dependence, alcohol withdrawal symptoms. Time spent for discharge: 34 minutes Core Measure Documentation - Palliative Care Palliative Care/ Comfort Measures: Not Applicable - Core Measures Any of the following diagnoses?: heart failure - Heart Failure Discharge Requirements CONSTANTINO/ARB for LVSD if EF <40%: Yes Beta carlos at discharge: Yes Exam - Physical Exam Narrative exam: GENERAL: well-developed and well-nourished -Beninese male lying on bed appeared to be in no discomfort. HEENT: Normocephalic. Atraumatic. No conjunctival congestion or icterus. Patient has moist mucous membranes. NECK: Supple. Trachea midline. CHEST/LUNGS: Clear to auscultated bilaterally, breathing nonlabored. No wheezes crackles or rhonchi. wound dressing on left chest intact HEART/CARDIOVASCULAR: Regular in rate and rhythm. S1 and S2 positive. ABDOMEN: Abdomen is soft, nontender. Patient has normal bowel sounds. SKIN: There is no rash. Warm and dry. NEURO: No focal motor deficit. Follows command. MUSCULOSKELETAL: No joint effusion or tenderness. EXTRIMITY: No edema, no cyanosis or clubbing. PSYCH: Cooperative. - Constitutional Vitals: Temp Pulse Resp BP Pulse Ox 98.1 F 117 H 20 105/72 98 01/21/21 07:33 01/21/21 07:33 01/21/21 07:33 01/21/21 07:33 01/21/21 07:33 Plan Activity: advance as tolerated Weight Bearing Status: Weight Bear as Tolerated Diet: low fat, low salt Additional Instructions: F/u in [place] on 01/27/2021 at 10:30am for Dressing removal and device interrogation. F/u with Dr Mcclure in our [place] office on 02/15/21 at 3:15pm. Follow up with: PRIMARY MD MAYTE [Primary Care Provider] - 7 Days YADIRA MCCLURE MD [Staff Physician] - 7 Days Prescriptions: Spironolactone [Aldactone] 25 mg PO QDAY #30 tablet Bumetanide [Bumex 1 mg tab] 1 mg PO 0600,1800 #60 tablet carvediloL [Coreg] 3.125 mg PO BID #60 tablet Folic Acid [Folvite] 1 mg PO QDAY #30 tablet Aspirin EC [Halfprin EC] 81 mg PO QDAY #30 tablet. lisinopriL [Zestril TAB] 10 mg PO QDAY #30 tablet
--- NOTE | 2021-01-21 11:18 | Post Anesthesia Evaluation ---
- Post Anesthesia Evaluation Patient Participated: Yes Airway Patent: Yes Stable Respiratory Function: Yes Nausea/Vomiting: No Temp > 96.8F: No Pain Manageable: Yes Adequeate Hydration: Yes Anesthesia Complications: No Block Receding Appropriately: Yes Patient on Ventilator: No
[2021-01-21 11:42] VITALS: BP 96/62
--- NOTE | 2021-01-21 12:11 | Progress Note ---
Assessment and Plan Pt is s/p BiVAICD implantation (01/20/21). Device interrogation this am is normal. Post procedure CXR shows normal device placement, no acute findings, no pneumothorax. Tele reviewed: Paced rhythm, rate 114. No events. Continue current cardiac regimen, including PO Bumex BID, Coreg, Lisinopril, Aldactone. Continue CPAP therapy. Pt is in stable cardiac status. May discharge from cardiac standpoint. F/u with our office in [place] on 01/27/2021 at 10:30am for Dressing removal and device interrogation. F/u with Dr Fisher in our [place] office on 02/15/21 at 3:15pm. [phone] The patient has been seen in conjunction with Dr. Abbey Carty who agrees with the assessment and plan of care. - Patient Problems (1) Acute on chronic HFrEF (heart failure with reduced ejection fraction) Current Visit: Yes Status: Acute Pt appears to be nearing euvolemia. IV diuretics have been weaned. Continue diuretic regimen Bumex 1mg PO BID, Aldactone PO 25mg daily. (2) Nonischemic cardiomyopathy Current Visit: Yes Status: Chronic s/p BiVAICD placement. Device interrogation is normal. Core measures reviewed: Cardiac regimen includes Statin. BB, ACEI/ARB. f/u appt is scheduled. Tobacco cessation encouraged. (3) Normal coronary arteries Current Visit: Yes Status: Chronic (4) Uncontrolled hypertension Current Visit: Yes Status: Chronic BB resumed post BiVAICD placement. (5) DAVID (acute kidney injury) Current Visit: Yes Status: Acute Creatinine has normalized. (6) Diabetes mellitus Current Visit: Yes Status: Chronic BG remains elevated. f/u with primary care in outpatient setting. (7) Sleep apnea Current Visit: Yes Status: Chronic Pt reports having sleep study on 12/15/20 and is pending results. f/u with pulmonology in out patient setting. (8) Tobacco use Current Visit: Yes Status: Chronic Tobacco cessation encouraged. (9) History of ETOH abuse Current Visit: Yes Status: Chronic Alcohol cessation encouraged. (10) Medical noncompliance Current Visit: Yes Status: Chronic Importance of f/u care discussed. Pt verbalizes understanding. f/u visits with cardiology have been made. (11) High Degree AV Block Current Visit: Yes Status: Resolved s/p BiVAICD placement. Tele reviewed: Paced rhythm 114. No events overnight. (12) BiVICD in Situ Current Visit: Yes Status: Acute Device interrogation is normal. CXR reviewed: No pneumothorax post procedure. Subjective Date of service: 01/21/21 Principal diagnosis: Acute on chronic HFrEF, NICMP, AV block Interval history: Patient is resting in bed, no new complaints. Tele reviewed: Paced rhythm, rate 114. No events. Objective Last Vital Signs Temp 98.4 F 01/21/21 11:28 Pulse 112 H 01/21/21 11:28 Resp 20 01/21/21 11:28 BP 96/62 01/21/21 11:28 Pulse Ox 93 01/21/21 11:28 - Physical Examination General: No Apparent Distress HEENT: Positive: EOMI, Normocephaly, Mucus Membranes Moist Neck: Positive: neck supple, trachea midline, JVD/HJR Cardiac: Positive: Reg Rate and Rhythm, S1/S2 Lungs: Positive: clear to auscultation, Normal Breath Sounds Neuro: Positive: Grossly Intact Abdomen: Positive: Soft, Active Bowel Sounds. Negative: Tender Skin: Negative: Rash Incision: Incision Site (Left pectoralis AICD implantation site. Pressure dressing removed. Site covered with telfa and tegaderm dressing. Site with some old, minimal blood noted, no current bleeding or hematoma noted.) Musculoskeletal: Normal Range of Motion Extremities: Present: upper extr. pulses, lower extr. pulses, edema (Trace edema, significantly improved) - Imaging and Cardiology EKG: report reviewed, image reviewed Echo: report reviewed (12/14/20 showed EF 15-20%, LV severely dilated, RV systolic function mod reduced, RV slightly dilated, mild TR, RVSP 44mmHg. ) Cardiac cath: report reviewed ( 06/2019 showed normal coronaries, EF 15-20%. ) - Telemetry EKG Rhythm: Paced - EKG Sinus rhythms and dysrhythmias: sinus rhythm AV and intraventricular conduction: advanced AV block
--- NOTE | 2021-01-21 14:43 | Electrocardiograph Report ---
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
--- NOTE | 2021-01-21 14:46 | Electrocardiograph Report ---
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
== END 2021-01-21 14:18 | disposition home or self-care (01) | DRG 226 ==
LOC: ED 09:25 → IMCU 12:42 → 4A 01-12 17:55
PROVIDERS: ADMIT Internal Medicine; ATTEND Internal Medicine
PROC: 5A09357 Assistance with Respiratory Ventilation, Less than 24 Consecutive Hours, Continuous Positive Airway Pressure (ICD-10-PCS; principal; 2021-01-15)
PROC: 5A09357 Assistance with Respiratory Ventilation, Less than 24 Consecutive Hours, Continuous Positive Airway Pressure (ICD-10-PCS; 2021-01-18)
PROC: 0JH608Z Insertion of Defibrillator Generator into Chest Subcutaneous Tissue and Fascia, Open Approach (ICD-10-PCS; 2021-01-20)
PROC: 02HL3KZ Insertion of Defibrillator Lead into Left Ventricle, Percutaneous Approach (ICD-10-PCS; 2021-01-20)
PROC: 02HK3KZ Insertion of Defibrillator Lead into Right Ventricle, Percutaneous Approach (ICD-10-PCS; 2021-01-20)
PROC: 4B02XTZ Measurement of Cardiac Defibrillator, External Approach (ICD-10-PCS; 2021-01-21)
DX: I11.0 Hypertensive heart disease with heart failure (principal); N17.0 Acute kidney failure with tubular necrosis; E66.2 Morbid (severe) obesity with alveolar hypoventilation; I50.43 Acute on chronic combined systolic (congestive) and diastolic (congestive) heart failure; I42.8 Other cardiomyopathies; Z20.822 Contact with and (suspected) exposure to COVID-19; Z53.8 Procedure and treatment not carried out for other reasons; I44.39 Other atrioventricular block; E87.6 Hypokalemia; I25.10 Atherosclerotic heart disease of native coronary artery without angina pectoris; E78.2 Mixed hyperlipidemia; F10.20 Alcohol dependence, uncomplicated; Z95.5 Presence of coronary angioplasty implant and graft; Z82.49 Family history of ischemic heart disease and other diseases of the circulatory system; Z83.3 Family history of diabetes mellitus; Z79.899 Other long term (current) drug therapy; Z91.14 Patient's other noncompliance with medication regimen; Z71.6 Tobacco abuse counseling
CPT/HCPCS: 36415; 71045; 80048; 80053; 82962; 83735; 83880; 84132; 84484; 85025; 85027; 85610; 93005; 94640; 94660; 94760; 96365; 96366; 96375; G0378; A9270-GY; J0690; J1250; J1644; J1650; J1940; J2001; J2250; J2704; J3010; J3370; J3490; J7030; J7040; J7050; Q9967; U0003

== ENCOUNTER 2021-02-01 09:18 | Observation (INO) | payer OTHER ==
--- NOTE | 2021-02-01 11:36 | Emergency Department Report ---
ED General Adult HPI - General Chief complaint: Medical Clearance Time Seen by Provider: 02/01/21 11:30 Source: patient Mode of arrival: Stretcher Limitations: No Limitations - History of Present Illness Initial comments: Patient presents to the emergency department with a chief complaint of a malfunctioning pacemaker. Patient states he had a pacemaker placed on the first of this month and was told to come to the emergency department because there is abnormality with the pacemaker. After discussing patient's history is determined that he presents due to either a dislodged lead of the pacemaker or malfunctioning wire. Denies chest pain, shortness breath, or headache. - Related Data Previous Rx's Medication Instructions Recorded Last Taken Type AtorvaSTATin [Lipitor] 40 mg PO QHS #60 tablet 12/18/20 1 Day Ago Rx ~01/08/21 Thiamine [Vitamin B-1] 100 mg PO QDAY #60 tablet 12/18/20 1 Day Ago Rx ~01/08/21 glipiZIDE [Glucotrol] 5 mg PO BID #60 tablet 12/18/20 1 Day Ago Rx ~01/08/21 metFORMIN [Glucophage] 500 mg PO BID #60 tablet 12/18/20 1 Day Ago Rx ~01/08/21 Aspirin EC [Halfprin EC] 81 mg PO QDAY #30 tablet. 01/21/21 Unknown Rx Bumetanide [Bumex 1 mg tab] 1 mg PO 0600,1800 #60 tablet 01/21/21 Unknown Rx Folic Acid [Folvite] 1 mg PO QDAY #30 tablet 01/21/21 Unknown Rx Spironolactone [Aldactone] 25 mg PO QDAY #30 tablet 01/21/21 Unknown Rx carvediloL [Coreg] 3.125 mg PO BID #60 tablet 01/21/21 Unknown Rx lisinopriL [Zestril TAB] 10 mg PO QDAY #30 tablet 01/21/21 Unknown Rx Allergies Allergy/AdvReac Type Severity Reaction Status Date / Time No Known Allergies Allergy Verified 01/09/21 09:27 ED Review of Systems ROS: Stated complaint: Other details as noted in HPI Comment: All other systems reviewed and negative Constitutional: denies: chills, fever Eyes: denies: eye pain, eye discharge, vision change ENT: denies: ear pain, throat pain Respiratory: denies: cough, shortness of breath, wheezing Cardiovascular: denies: chest pain, palpitations Endocrine: no symptoms reported Gastrointestinal: denies: abdominal pain, nausea, diarrhea Genitourinary: denies: urgency, dysuria Musculoskeletal: denies: back pain, joint swelling, arthralgia Skin: denies: rash, lesions Neurological: denies: headache, weakness, paresthesias Psychiatric: denies: anxiety, depression Hematological/Lymphatic: denies: easy bleeding, easy bruising ED Past Medical Hx - Past Medical History Hx Hypertension: Yes (06/2020) Hx Congestive Heart Failure: Yes Hx Diabetes: Yes Hx Renal Disease: Yes (Had DAVID-hydrated now) Hx Asthma: No Hx COPD: No Additional medical history: SLEEP APNEA. high cholestrol - Surgical History Additional Surgical History: cardiac stents - Social History Smoking Status: Former Smoker - Medications Home Medications: Home Medications Medication Instructions Recorded Confirmed Last Taken Type AtorvaSTATin [Lipitor] 40 mg PO QHS #60 tablet 12/18/20 01/09/21 1 Day Ago Rx ~01/08/21 Thiamine [Vitamin B-1] 100 mg PO QDAY #60 tablet 12/18/20 01/09/21 1 Day Ago Rx ~01/08/21 glipiZIDE [Glucotrol] 5 mg PO BID #60 tablet 12/18/20 01/09/21 1 Day Ago Rx ~01/08/21 metFORMIN [Glucophage] 500 mg PO BID #60 tablet 12/18/20 01/09/21 1 Day Ago Rx ~01/08/21 Aspirin EC [Halfprin EC] 81 mg PO QDAY #30 tablet. 01/21/21 Unknown Rx Bumetanide [Bumex 1 mg tab] 1 mg PO 0600,1800 #60 tablet 01/21/21 Unknown Rx Folic Acid [Folvite] 1 mg PO QDAY #30 tablet 01/21/21 Unknown Rx Spironolactone [Aldactone] 25 mg PO QDAY #30 tablet 01/21/21 Unknown Rx carvediloL [Coreg] 3.125 mg PO BID #60 tablet 01/21/21 Unknown Rx lisinopriL [Zestril TAB] 10 mg PO QDAY #30 tablet 01/21/21 Unknown Rx ED Physical Exam - General Limitations: No Limitations General appearance: alert, in no apparent distress - Head Head exam: Present: atraumatic, normocephalic - Eye Eye exam: Present: normal appearance, PERRL, EOMI - ENT ENT exam: Present: mucous membranes moist - Neck Neck exam: Present: normal inspection - Respiratory Respiratory exam: Present: normal lung sounds bilaterally, other (Area of left upper chest sounds signs of infection after placement of cardiac device). Absent: respiratory distress, chest wall tenderness - Cardiovascular Cardiovascular Exam: Present: regular rate, normal rhythm. Absent: systolic murmur, diastolic murmur, rubs, gallop - GI/Abdominal GI/Abdominal exam: Present: soft, normal bowel sounds - Rectal Rectal exam: Present: deferred - Extremities Exam Extremities exam: Present: normal inspection - Back Exam Back exam: Present: normal inspection - Neurological Exam Neurological exam: Present: alert, oriented X3 - Psychiatric Psychiatric exam: Present: normal affect, normal mood - Skin Skin exam: Present: warm, dry, intact, normal color. Absent: rash ED Medical Decision Making - Medical Decision Making Laboratory values will be followed by the admitting physician Patient to Assistant Producer under the care of Dr. Marcia Kruger Critical care attestation.: If time is entered above; I have spent that time in minutes in the direct care of this critically ill patient, excluding procedure time. ED Disposition Clinical Impression: Pacemaker complications Disposition: DC-09 OP ADMIT IP TO THIS HOSP Is pt being admited?: Yes Does the pt Need Aspirin: No Condition: Stable Referrals: PRIMARY CARE,MD [Primary Care Provider] - 3-5 Days
[2021-02-01 11:50] LABS: Basophils # (Auto) 0.1 K/mm3 (0.0-0.1); Basophils % (Auto) 0.8 % (0.0-1.8); Eosinophils # (Auto) 0.1 K/mm3 (0.0-0.4); Eosinophils % (Auto) 1.6 % (0.0-4.3); Hematocrit 44.1 % (35.5-45.6); Hemoglobin 14.7 gm/dl (11.8-15.2); Lymphocytes # (Auto) 1.7 K/mm3 (1.2-5.4); Lymphocytes % (Auto) 21.7 % (13.4-35.0); Mean Corpuscular HGB Conc 33 % (32-34); Mean Corpuscular Volume 95 fl (84-94); Monocytes # (Auto) 0.5 K/mm3 (0.0-0.8); Monocytes % (Auto) 6.6 % (0.0-7.3); Platelet Count 224 K/mm3 (140-440); Red Blood Count 4.65 M/mm3 (3.65-5.03); Red Cell Distribution Width 13.3 % (13.2-15.2)
[2021-02-01] MEDS ORDERED: HYDROmorphone 1 MG/1 ML INJ ONE (12:32)
[2021-02-01] MEDS ORDERED: MIDAZOLAM 2 MG/2 ML INJ ONE (12:32)
[2021-02-01 12:47] LABS: BUN/Creatinine Ratio 25; Blood Urea Nitrogen 30 mg/dL (9-20); Calcium 9.7 mg/dL (8.4-10.2); Hemolysis Index 6
[2021-02-01] MEDS ORDERED: SODIUM CHLORIDE 0.45% 1000 ML 1,000 ML IV SCH (13:00)
[2021-02-01] MEDS ORDERED: ceFAZolin/Water 2 GM/20 ML 2 GM/20 ML SYRINGE IV ONE (13:01)
[2021-02-01] MEDS ORDERED: BUPIVACAINE/PF (0.5%) 5 MG/1 ML 30 ML VIAL INFILTRATI ONE (13:27)
[2021-02-01] MEDS ORDERED: LIDOCAINE (2%) 20 MG/1 ML VIAL 20 ML MDV INFILTRATI ONE (13:27)
[2021-02-01] MEDS ORDERED: SODIUM CHLORIDE IRRI 1000 ML 1,000 ML, .VANCOMYCIN VIAL 1,000 MG IR ONE (13:33)
--- NOTE | 2021-02-01 13:50 | Anesthesia Day of Surgery ---
Anesthesia Day of Surgery - Day of Surgery Patient Examined: Yes Patient H&P Reviewed: Yes Patient is NPO: Yes
--- NOTE | 2021-02-01 13:50 | Anesthesia Consultation ---
Anesthesia Consult and Med Hx Date of service: 02/01/21 - Airway Anesthetic Teeth Evaluation: Good ROM Head & Neck: Adequate Mental/Hyoid Distance: Adequate Mallampati Class: Class III Intubation Access Assessment: Possibly Difficult - Pulmonary Exam CTA: Yes - Cardiac Exam Cardiac Exam: RRR - Pre-Operative Health Status ASA Pre-Surgery Classification: ASA4 Proposed Anesthetic Plan: MAC - Pulmonary Hx Smoking: Yes Hx Respiratory Symptoms: No Hx Sleep Apnea: Yes (no CPAP) - Cardiovascular System Hx Hypertension: Yes Hx Coronary Artery Disease: No (non-ischemic cardiomyopathy EF 15-20%) Hx Internal Defibrillator: Yes - Central Nervous System CVA: No - Endocrine Hx Renal Disease: Yes Hx Liver Disease: No Hx Insulin Dependent Diabetes: No Hx Non-Insulin Dependent Diabetes: No Hx Thyroid Disease: No - Other Systems Hx Alcohol Use: Yes
[2021-02-01] MEDS ORDERED: DOBUTamine/D5W 500 MG/250 ML 500 MG/250 ML BAG IV ONE (14:09)
[2021-02-01] MEDS ORDERED: VANCOMYCIN/NS 1 GM/250 ML 1 GM/250 ML BAG IV ONE (14:44)
[2021-02-01] MEDS ORDERED: GLYCOPYRROLATE 0.4 MG/2 ML INJ ONE (15:26)
[2021-02-01] MEDS ORDERED: PHENYLEPHRINE/NS 1,000 MCG/10 ML SYRINGE (OR USE) IV ONE (15:26)
[2021-02-01] MEDS ORDERED: LIDOCAINE MPF (2%) 20 MG/1 ML VIAL 5 ML ONE (15:26)
--- NOTE | 2021-02-01 17:16 | XRay Report ---
XR chest 1V ap INDICATION / CLINICAL INFORMATION: Pacemaker Postop. COMPARISON: 01/20/2021 FINDINGS: SUPPORT DEVICES: Biventricular left-sided cardiac pacemaker/AICD noted. HEART /PULMONARY VASCULATURE: There is cardiac enlargement without significant pulmonary vasculature congestion. LUNGS / PLEURA: No significant pulmonary or pleural abnormality. No pneumothorax. ADDITIONAL FINDINGS: No significant additional findings. IMPRESSION: Biventricular lead cardiac pacemaker/AICD. Cardiomegaly without overt failure or other acute chest pr ocess. Signer Name: Ulysses Valenzuela MD Signed: 02/01/2021 5:12 PM Workstation Name: [id number]
--- NOTE | 2021-02-01 17:34 | Post Anesthesia Evaluation ---
- Post Anesthesia Evaluation Patient Participated: Yes Airway Patent: Yes Stable Respiratory Function: Yes Nausea/Vomiting: No Temp > 96.8F: Yes Pain Manageable: Yes Adequeate Hydration: Yes Anesthesia Complications: No
[2021-02-01] MEDS: ceFAZolin/NS 1 GM/50 ML 1 GM/50 ML BAG IV SCH (21:52)
[2021-02-01] MEDS: HYDROcodone/ACETAMINOPHEN 5-325 MG TAB PO PRN (22:15)
[2021-02-02] MEDS: ceFAZolin/NS 1 GM/50 ML 1 GM/50 ML BAG IV SCH (04:14)
[2021-02-02] MEDS: HYDROcodone/ACETAMINOPHEN 5-325 MG TAB PO PRN ×2 (04:32→12:28)
[2021-02-02 11:33] VITALS: BP 122/72
--- NOTE | 2021-02-02 13:16 | Short Stay Summary ---
Short Stay Documentation Date of service: 02/01/21 - History H&P: obtained from office - Allergies and Medications Current Medications: Allergies No Known Allergies Allergy (Verified 01/09/21 09:27) Home Medications Medication Instructions Recorded Confirmed Last Taken Type AtorvaSTATin [Lipitor] 40 mg PO QHS #60 tablet 12/18/20 01/09/21 1 Day Ago Rx ~01/08/21 Thiamine [Vitamin B-1] 100 mg PO QDAY #60 tablet 12/18/20 01/09/21 1 Day Ago Rx ~01/08/21 glipiZIDE [Glucotrol] 5 mg PO BID #60 tablet 12/18/20 01/09/21 1 Day Ago Rx ~01/08/21 metFORMIN [Glucophage] 500 mg PO BID #60 tablet 12/18/20 01/09/21 1 Day Ago Rx ~01/08/21 Aspirin EC [Halfprin EC] 81 mg PO QDAY #30 tablet. 01/21/21 Unknown Rx Bumetanide [Bumex 1 mg tab] 1 mg PO 0600,1800 #60 tablet 01/21/21 Unknown Rx Folic Acid [Folvite] 1 mg PO QDAY #30 tablet 01/21/21 Unknown Rx Spironolactone [Aldactone] 25 mg PO QDAY #30 tablet 01/21/21 Unknown Rx carvediloL [Coreg] 3.125 mg PO BID #60 tablet 01/21/21 Unknown Rx lisinopriL [Zestril TAB] 10 mg PO QDAY #30 tablet 01/21/21 Unknown Rx Active Medications Hydrocodone Bitart/Acetaminophen (Hydrocodone/Acetaminophen 5-325 Mg Tab) 1 eac h PO Q6H PRN PRN Reason: Pain, Moderate (4-6) Last Admin: 02/02/21 12:28 Dose: 1 each Documented by: Sodium Chloride (Nacl 0.45% 1000 Ml) 1,000 mls @ 50 mls/hr IV DIRECT IJEOMA Last Infusion: 02/02/21 10:30 Dose: 0 mls/hr Documented by: - Physical exam General appearance: no acute distress Integumentary: other (Left pectoralis incision site inspected. Telfa & tegaderm intact. Pressure dressing removed. Site is clean and dry, no bleeding or hematoma. ) Lungs: Clear to auscultation Heart: Regular rate, Normal S1, Normal S2 Extremities: pulses symmetrical Neurological: Normal gait, Normal speech - Brief post op/procedure progress note Date of procedure: 02/01/21 Pre-op diagnosis: PPM lead displaced Post-op diagnosis: other (PPM lead in place) Procedure: PPM lead revision Anesthesia: local Estimated blood loss: none Condition: stable - Hospital course Hospital course: Left pectoralis incision site inspected. Telfa & tegaderm intact. Pressure dressing removed. Site is clean and dry, no bleeding or hematoma. Post procedure CXR: no acute process. Post procedure device interrogation: normal function. - Disposition Condition at discharge: Good Disposition: DC-01 TO HOME OR SELFCARE - Discharge Diagnoses (1) ICD (implantable cardioverter-defibrillator) in place Status: Chronic Short Stay Discharge Plan Activity: advance as tolerated Diet: low fat, low cholesterol, low salt Wound: open to air, keep clean and dry, per your surgeon's advice Follow up with: PRIMARY CARE, [Primary Care Provider] - 3-5 Days LURDES BENSON MD [Staff Physician] - 7 Days (f/u in our [place] office for postop device check and incision inspection on 02/11/21 @ 2:30pm. f/u with Dr Fisher in our [place] office on 02/15/21 @ 3:15pm)
--- NOTE | 2021-02-02 14:06 | Post Anesthesia Evaluation ---
- Post Anesthesia Evaluation Patient Participated: Yes Airway Patent: Yes Stable Respiratory Function: Yes Nausea/Vomiting: No Temp > 96.8F: Yes Pain Manageable: Yes Adequeate Hydration: Yes Anesthesia Complications: No Block Receding Appropriately: Not Applicable Patient on Ventilator: No Other Comments: rests comfortably, left arm is in the sling
--- NOTE | 2021-02-03 11:30 | Electrocardiograph Report ---
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
== END 2021-02-02 16:48 | disposition home or self-care (01) ==
LOC: ED 09:18 → CATH 09:18 → EDSTATUS 11:30 → 4A 15:49
PROVIDERS: ADMIT Internal Medicine Cardiovascular Disease; ATTEND Internal Medicine Cardiovascular Disease
DX: T82.897A Other specified complication of cardiac prosthetic devices, implants and grafts, initial encounter (principal); I11.0 Hypertensive heart disease with heart failure; I50.9 Heart failure, unspecified; N17.9 Acute kidney failure, unspecified; E11.9 Type 2 diabetes mellitus without complications; E78.00 Pure hypercholesterolemia, unspecified; G47.30 Sleep apnea, unspecified; Z79.84 Long term (current) use of oral hypoglycemic drugs; Z79.82 Long term (current) use of aspirin; Z95.1 Presence of aortocoronary bypass graft; Z87.891 Personal history of nicotine dependence; Z95.810 Presence of automatic (implantable) cardiac defibrillator
CPT/HCPCS: 33215; 36415; 71045; 80048; 85025; 85730; 93005; 96365; 96366; 96367; 99284; G0378; J0690; J1170; J1250; J2250; J2370; J2704; J3370; J7030

== ENCOUNTER 2021-05-17 23:02 | Observation (INO) | payer MEDICAID, OTHER, SELFPAY ==
[2021-05-18 01:23] LABS: Basophils # (Auto) 0.1 K/mm3 (0.0-0.1); Basophils % (Auto) 0.6 % (0.0-1.8); Eosinophils # (Auto) 0.1 K/mm3 (0.0-0.4); Eosinophils % (Auto) 0.6 % (0.0-4.3); Hematocrit 40.3 % (35.5-45.6); Hemoglobin 13.5 gm/dl (11.8-15.2); Lymphocytes # (Auto) 2.1 K/mm3 (1.2-5.4); Lymphocytes % (Auto) 22.6 % (13.4-35.0); Mean Corpuscular HGB Conc 34 % (32-34); Mean Corpuscular Volume 97 fl (84-94); Monocytes # (Auto) 0.8 K/mm3 (0.0-0.8); Monocytes % (Auto) 8.5 % (0.0-7.3); Platelet Count 170 K/mm3 (140-440); Red Blood Count 4.15 M/mm3 (3.65-5.03); Red Cell Distribution Width 16.4 % (13.2-15.2)
--- NOTE | 2021-05-18 01:25 | XRay Report ---
CHEST 2 VIEWS INDICATION / CLINICAL INFORMATION: sob. COMPARISON: One view of the chest from 02/01/2021 FINDINGS: SUPPORT DEVICES: Unchanged left ICD. HEART / MEDIASTINUM: Stable cardiomegaly. LUNGS / PLEURA: No significant pulmonary abnormality. No significant pleural effusion. No pneumothora x. ADDITIONAL FINDINGS: No significant additional findings. IMPRESSION: No acute findings or other significant interval changes. Signer Name: Bradley Ross MD Signed: 05/18/2021 1:20 AM Workstation Name: [id number]
[2021-05-18 01:41] LABS: BUN/Creatinine Ratio 19; Blood Urea Nitrogen 28 mg/dL (9-20); Calcium 8.7 mg/dL (8.4-10.2); Hemolysis Index 1
[2021-05-18] MEDS ORDERED: DEXTROSE 50% IN WATER (25GM) 50 ML VIAL IV PRN (04:18)
[2021-05-18] MEDS ORDERED: DEXTROSE 50% IN WATER (25GM) 50 ML SYRINGE IV ONE (04:18)
[2021-05-18] MEDS ORDERED: ASPIRIN EC 81 MG TAB PO STA (04:19)
[2021-05-18] MEDS ORDERED: FOLIC ACID 1 MG TAB PO STA (04:19)
[2021-05-18] MEDS ORDERED: THIAMINE 100 MG TAB PO STA (04:19)
[2021-05-18] MEDS ORDERED: FUROSEMIDE 40 MG/4 ML INJ IV ONE (04:20)
--- NOTE | 2021-05-18 04:20 | Emergency Department Report ---
ED General Adult HPI - General Chief complaint: Dyspnea/Respdistress Stated complaint: I feel like I have fluid in my lungs, my legs are swollen and I am short of breath PUI?: No Time Seen by Provider: 05/18/21 04:11 Source: patient, RN notes reviewed, old records reviewed Mode of arrival: Ambulatory Limitations: No Limitations - History of Present Illness Initial comments: The patient is a 40-year-old gentleman. His past medical history includes CHF, nonischemic cardiomyopathy, EF of 15 to 20%, normal coronaries via left heart cath, history of alcohol abuse, hypertension, hyperlipidemia, diabetes, DIANN noncompliant with CPAP. The patient presents to the ER today with a complaint of painless lower extremity swelling, shortness of breath, orthopnea, unintentional weight gain. The patient is intermittently compliant with diet, and with medications. The patient states he is hungry at this time. He denies loss of taste and smell. His symptoms are constant. They worsen with physical exertion and decreased with rest. He states he feels like he has "fluid on his lungs." -: Gradual, days(s) Location: left, right, lower extremity Consistency: constant Improves with: rest Worsens with: movement - Related Data Previous Rx's Medication Instructions Recorded Last Taken Type AtorvaSTATin [Lipitor] 40 mg PO QHS #60 tablet 12/18/20 1 Day Ago Rx ~01/08/21 Thiamine [Vitamin B-1] 100 mg PO QDAY #60 tablet 12/18/20 1 Day Ago Rx ~01/08/21 glipiZIDE [Glucotrol] 5 mg PO BID #60 tablet 12/18/20 1 Day Ago Rx ~01/08/21 metFORMIN [Glucophage] 500 mg PO BID #60 tablet 12/18/20 1 Day Ago Rx ~01/08/21 Aspirin EC [Halfprin EC] 81 mg PO QDAY #30 tablet. 01/21/21 Unknown Rx Bumetanide [Bumex 1 mg tab] 1 mg PO 0600,1800 #60 tablet 01/21/21 Unknown Rx Folic Acid [Folvite] 1 mg PO QDAY #30 tablet 01/21/21 Unknown Rx Spironolactone [Aldactone] 25 mg PO QDAY #30 tablet 01/21/21 Unknown Rx carvediloL [Coreg] 3.125 mg PO BID #60 tablet 01/21/21 Unknown Rx lisinopriL [Zestril TAB] 10 mg PO QDAY #30 tablet 01/21/21 Unknown Rx Allergies Allergy/AdvReac Type Severity Reaction Status Date / Time No Known Allergies Allergy Verified 01/09/21 09:27 ED Review of Systems ROS: Stated complaint: POSS FLUID IN LUNGS Other details as noted in HPI Constitutional: denies: fever Eyes: denies: eye discharge ENT: congestion. denies: epistaxis Respiratory: cough, shortness of breath, SOB with exertion, SOB at rest, wheezing Cardiovascular: dyspnea on exertion, orthopnea, edema, other (Unintentional 40 pound weight gain). denies: chest pain Gastrointestinal: denies: abdominal pain, nausea, vomiting, hematemesis, melena, hematochezia Genitourinary: denies: dysuria Musculoskeletal: denies: arthralgia Neurological: weakness Hematological/Lymphatic: denies: easy bleeding ED Past Medical Hx - Past Medical History Hx Hypertension: Yes Hx Congestive Heart Failure: Yes Hx Diabetes: Yes Hx Liver Disease: No Hx Renal Disease: Yes Hx Asthma: No Hx COPD: No Additional medical history: SLEEP APNEA. high cholestrol - Surgical History Hx Internal Defibrillator: Yes Additional Surgical History: cardiac stents - Social History Smoking Status: Former Smoker - Medications Home Medications: Home Medications Medication Instructions Recorded Confirmed Last Taken Type AtorvaSTATin [Lipitor] 40 mg PO QHS #60 tablet 12/18/20 01/09/21 1 Day Ago Rx ~01/08/21 Thiamine [Vitamin B-1] 100 mg PO QDAY #60 tablet 12/18/20 01/09/21 1 Day Ago Rx ~01/08/21 glipiZIDE [Glucotrol] 5 mg PO BID #60 tablet 12/18/20 01/09/21 1 Day Ago Rx ~01/08/21 metFORMIN [Glucophage] 500 mg PO BID #60 tablet 12/18/20 01/09/21 1 Day Ago Rx ~01/08/21 Aspirin EC [Halfprin EC] 81 mg PO QDAY #30 tablet. 01/21/21 Unknown Rx Bumetanide [Bumex 1 mg tab] 1 mg PO 0600,1800 #60 tablet 01/21/21 Unknown Rx Folic Acid [Folvite] 1 mg PO QDAY #30 tablet 01/21/21 Unknown Rx Spironolactone [Aldactone] 25 mg PO QDAY #30 tablet 01/21/21 Unknown Rx carvediloL [Coreg] 3.125 mg PO BID #60 tablet 01/21/21 Unknown Rx lisinopriL [Zestril TAB] 10 mg PO QDAY #30 tablet 01/21/21 Unknown Rx ED Physical Exam - General Limitations: Physical Limitation General appearance: alert, in no apparent distress - Head Head exam: Present: atraumatic, normocephalic - Eye Eye exam: Present: normal appearance, EOMI. Absent: nystagmus - ENT ENT exam: Present: normal exam, normal orophraynx, mucous membranes moist, normal external ear exam - Neck Neck exam: Present: normal inspection, full ROM. Absent: tenderness, meningismus - Respiratory Respiratory exam: Present: rales. Absent: stridor - Cardiovascular Cardiovascular Exam: Present: tachycardia, JVD (6 cm of JVD bilaterally). Absent: bradycardia - GI/Abdominal GI/Abdominal exam: Present: soft. Absent: distended, tenderness, guarding, rebound, rigid, pulsatile mass - Rectal Rectal exam: Present: deferred - Extremities Exam Extremities exam: Present: normal inspection, full ROM, pedal edema (3-4+ edema in the bilateral lower extremities), other (2+ pulses noted in the bilateral upper and lower extremities. There is no palpable cord. negative Homans sign. Muscular compartments are soft. The pelvis is stable.). Absent: calf tenderness - Back Exam Back exam: Present: normal inspection, full ROM. Absent: tenderness, CVA tenderness (R), CVA tenderness (L), paraspinal tenderness, vertebral tenderness - Neurological Exam Neurological exam: Present: alert, oriented X3, normal gait, other (No facial droop. Tongue midline. Extraocular movements intact bilaterally. Facial sensation intact to light touch in V1, V2, V3 distribution bilaterally. 5 and a 5 strength in 4 extremities. Sensation intact to light touch in 4 extremities.). Absent: motor sensory deficit - Psychiatric Psychiatric exam: Present: normal mood - Skin Skin exam: Present: warm, dry, intact, normal color. Absent: rash ED Course Vital Signs 05/18/21 05/18/21 05/18/21 00:54 04:57 05:00 Temperature 98.5 F Pulse Rate 42 L 107 H Respiratory 18 23 Rate Blood Pressure 121/90 Blood Pressure [Right] O2 Sat by Pulse 97 87 100 Oximetry 05/18/21 05/18/21 05/18/21 05:30 05:39 06:00 Temperature Pulse Rate 116 H 108 H 106 H Respiratory 32 H 20 Rate Blood Pressure 118/86 148/89 107/85 Blood Pressure [Right] O2 Sat by Pulse 96 95 Oximetry 05/18/21 05/18/21 05/18/21 06:30 07:00 07:30 Temperature Pulse Rate 105 H 104 H 105 H Respiratory 20 21 14 Rate Blood Pressure 103/79 105/81 105/60 Blood Pressure [Right] O2 Sat by Pulse 99 97 100 Oximetry 05/18/21 05/18/21 05/18/21 08:00 08:30 09:00 Temperature Pulse Rate 109 H 109 H 124 H Respiratory 16 27 H 22 Rate Blood Pressure 114/90 114/90 97/75 Blood Pressure [Right] O2 Sat by Pulse 92 99 93 Oximetry 05/18/21 05/18/21 05/18/21 09:30 10:00 10:30 Temperature Pulse Rate 106 H 100 H 105 H Respiratory 26 H 16 27 H Rate Blood Pressure 97/75 97/75 106/86 Blood Pressure [Right] O2 Sat by Pulse 98 93 100 Oximetry 05/18/21 05/18/21 05/18/21 11:00 11:30 11:34 Temperature Pulse Rate 99 H 103 H Respiratory 39 H 17 Rate Blood Pressure 92/66 102/76 Blood Pressure [Right] O2 Sat by Pulse 94 96 98 Oximetry 05/18/21 05/18/21 05/18/21 12:00 12:30 13:00 Temperature Pulse Rate 105 H 105 H 93 H Respiratory 25 H 17 22 Rate Blood Pressure 126/84 107/76 99/72 Blood Pressure [Right] O2 Sat by Pulse 86 100 Oximetry 05/18/21 05/18/21 05/18/21 13:30 14:00 14:30 Temperature Pulse Rate 104 H 26 L Respiratory 20 34 H 26 H Rate Blood Pressure 113/83 124/62 Blood Pressure 119/75 [Right] O2 Sat by Pulse 93 74 L 96 Oximetry 05/18/21 05/18/21 05/18/21 17:00 17:29 17:30 Temperature Pulse Rate 104 H 105 H 106 H Respiratory 21 24 22 Rate Blood Pressure 117/71 117/71 Blood Pressure 117/71 131/94 [Right] O2 Sat by Pulse 95 96 Oximetry 05/18/21 05/18/21 19:34 21:29 Temperature 98.5 F Pulse Rate 105 H 92 H Respiratory 18 Rate Blood Pressure Blood Pressure 106/75 [Right] O2 Sat by Pulse 98 Oximetry ED Medical Decision Making - Lab Data Result diagrams: 05/19/21 04:44 05/19/21 04:44 Lab Results 05/18/21 05/18/21 Range/Units 01:01 01:01 WBC 9.3 (4.5-11.0) K/mm3 RBC 4.15 (3.65-5.03) M/mm3 Hgb 13.5 (11.8-15.2) gm/dl Hct 40.3 (35.5-45.6) % MCV 97 H (84-94) fl MCH 33 H (28-32) pg MCHC 34 (32-34) % RDW 16.4 H (13.2-15.2) % Plt Count 170 (140-440) K/mm3 Lymph % (Auto) 22.6 (13.4-35.0) % [place] % (Auto) 8.5 H (0.0-7.3) % Eos % (Auto) 0.6 (0.0-4.3) % Baso % (Auto) 0.6 (0.0-1.8) % Lymph # (Auto) 2.1 (1.2-5.4) K/mm3 [place] # (Auto) 0.8 (0.0-0.8) K/mm3 Eos # (Auto) 0.1 (0.0-0.4) K/mm3 Baso # (Auto) 0.1 (0.0-0.1) K/mm3 Seg Neutrophils % 67.7 (40.0-70.0) % Seg Neutrophils # 6.3 (1.8-7.7) K/mm3 Sodium 141 (137-145) mmol/L Potassium 4.2 (3.6-5.0) mmol/L Chloride 102.6 (98-107) mmol/L Carbon Dioxide 27 (22-30) mmol/L Anion Gap 16 mmol/L BUN 28 H (9-20) mg/dL Creatinine 1.5 H (0.8-1.3) mg/dL Estimated GFR > 60 ml/min BUN/Creatinine Ratio 19 % Glucose 70 L (75-100) mg/dL Calcium 8.7 (8.4-10.2) mg/dL Vital Signs 05/18/21 05/18/21 05/18/21 00:54 04:57 05:00 Temperature 98.5 F Pulse Rate 42 L 107 H Respiratory 18 23 Rate Blood Pressure 121/90 O2 Sat by Pulse 97 87 100 Oximetry Lab Results 05/18/21 05/18/21 05/18/21 Range/Units 01:01 01:01 04:27 WBC 9.3 (4.5-11.0) K/mm3 RBC 4.15 (3.65-5.03) M/mm3 Hgb 13.5 (11.8-15.2) gm/dl Hct 40.3 (35.5-45.6) % MCV 97 H (84-94) fl MCH 33 H (28-32) pg MCHC 34 (32-34) % RDW 16.4 H (13.2-15.2) % Plt Count 170 (140-440) K/mm3 Lymph % (Auto) 22.6 (13.4-35.0) % [place] % (Auto) 8.5 H (0.0-7.3) % Eos % (Auto) 0.6 (0.0-4.3) % Baso % (Auto) 0.6 (0.0-1.8) % Lymph # (Auto) 2.1 (1.2-5.4) K/mm3 [place] # (Auto) 0.8 (0.0-0.8) K/mm3 Eos # (Auto) 0.1 (0.0-0.4) K/mm3 Baso # (Auto) 0.1 (0.0-0.1) K/mm3 Seg Neutrophils % 67.7 (40.0-70.0) % Seg Neutrophils # 6.3 (1.8-7.7) K/mm3 PT 15.5 H (12.2-14.9) Sec. INR 1.17 H (0.87-1.13) Sodium 141 (137-145) mmol/L Potassium 4.2 (3.6-5.0) mmol/L Chloride 102.6 (98-107) mmol/L Carbon Dioxide 27 (22-30) mmol/L Anion Gap 16 mmol/L BUN 28 H (9-20) mg/dL Creatinine 1.5 H (0.8-1.3) mg/dL Estimated GFR > 60 ml/min BUN/Creatinine Ratio 19 % Glucose 70 L (75-100) mg/dL Calcium 8.7 (8.4-10.2) mg/dL Magnesium (1.7-2.3) mg/dL Total Creatine Kinase (55-170) units/L Troponin T (0.00-0.029) ng/mL NT-Pro-B Natriuret Pep (0-450) pg/mL 05/18/21 05/18/21 Range/Units 04:27 04:27 WBC (4.5-11.0) K/mm3 RBC (3.65-5.03) M/mm3 Hgb (11.8-15.2) gm/dl Hct (35.5-45.6) % MCV (84-94) fl MCH (28-32) pg MCHC (32-34) % RDW (13.2-15.2) % Plt Count (140-440) K/mm3 Lymph % (Auto) (13.4-35.0) % [place] % (Auto) (0.0-7.3) % Eos % (Auto) (0.0-4.3) % Baso % (Auto) (0.0-1.8) % Lymph # (Auto) (1.2-5.4) K/mm3 [place] # (Auto) (0.0-0.8) K/mm3 Eos # (Auto) (0.0-0.4) K/mm3 Baso # (Auto) (0.0-0.1) K/mm3 Seg Neutrophils % (40.0-70.0) % Seg Neutrophils # (1.8-7.7) K/mm3 PT (12.2-14.9) Sec. INR (0.87-1.13) Sodium (137-145) mmol/L Potassium (3.6-5.0) mmol/L Chloride (98-107) mmol/L Carbon Dioxide (22-30) mmol/L Anion Gap mmol/L BUN (9-20) mg/dL Creatinine (0.8-1.3) mg/dL Estimated GFR ml/min BUN/Creatinine Ratio % Glucose (75-100) mg/dL Calcium (8.4-10.2) mg/dL Magnesium 2.20 (1.7-2.3) mg/dL Total Creatine Kinase 151 (55-170) units/L Troponin T < 0.010 (0.00-0.029) ng/mL NT-Pro-B Natriuret Pep 8317 H (0-450) pg/mL - EKG Data -: EKG Interpreted by Sd - EKG Data 05/18/21 04:55 EKG is interpreted at 04: 21 Rate 105 bpm, rightward axis deviation, ventricular paced complex, good ventricular capture, QTC 596 ms, motion artifact. Abnormal EKG. Not a STEMI. - Radiology Data Radiology results: pending, report reviewed, image reviewed [facility] [address] [place] [address] XRay Report Signed Patient: SHARLA MAST MR#: [id number] : [id number] Acct:[id number] Age/Sex: 40 / M ADM Date: 05/17/21 Loc: ED Attending Dr: Ordering Physician: ED MD KUN Date of Service: 05/18/21 Procedure(s): XR chest routine 2V Accession Number(s): [id number] cc: ED MD KUN Fluoro Time In Minutes: CHEST 2 VIEWS INDICATION / CLINICAL INFORMATION: sob. COMPARISON: One view of the chest from 02/01/2021 FINDINGS: SUPPORT DEVICES: Unchanged left ICD. HEART / MEDIASTINUM: Stable cardiomegaly. LUNGS / PLEURA: No significant pulmonary abnormality. No significant pleural effusion. No pneumothorax. ADDITIONAL FINDINGS: No significant additional findings. IMPRESSION: No acute findings or other significant interval changes. Signer Name: Bradley Ross MD Signed: 1:20 AM Workstation Name: [id number] Transcribed By: VIDYA Dictated By: Bradley Ross MD Electronically Authenticated By: Bradley Ross MD Signed Date/Time: 05/18/21119 DD/ 9 - Medical Decision Making Differential diagnosis, including but not limited to: Acute congestive heart failure, obstructive sleep apnea, cardiorenal syndrome, electrolyte derangement, hypoglycemia, noncompliance Assessment and plan: 40-year-old gentleman with known history of nonischemic cardiomyopathy, EF of 15 to 20%, with evidence of decompensated congestive heart failure, manifest by crackles, rales, JVD, lower extremity edema, and unintentional 30 to 40 pound weight gain. Found to have creatinine of 1.5, glucose of 70. There may be a component of cardiorenal syndrome here. 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 Have instructed nurses to obtain full set of vital signs. The patient denies chest pain to myself. Continue Lasix and spironolactone. As needed dextrose, Accu-Cheks to be repeated. Admit patient to the medical service. I have discussed this plan of care with the patient. He is agreeable to the aforementioned. Hospital physician, Dr. Askew to admit to [facility] Critical care attestation.: If time is entered above; I have spent that time in minutes in the direct care of this critically ill patient, excluding procedure time. ED Disposition Clinical Impression: Acute heart failure, Obesity (BMI 30.0-34.9), Nonischemic cardiomyopathy, Hypoglycemia Disposition: 09 OP ADMIT IP TO THIS HOSP Is pt being admited?: Yes Does the pt Need Aspirin: Yes Condition: Good
[2021-05-18 05:03] LABS: INR 1.17 (0.87-1.13)
[2021-05-18] MEDS ORDERED: SPIRONOLACTONE 25 MG TAB PO ONE (05:19)
--- NOTE | 2021-05-18 06:03 | History and Physical Report ---
History of Present Illness Date of examination: 05/18/21 Date of admission: 05/18/21 Chief complaint: CHF History of present illness: The patient is a 40-year-old gentleman. His past medical history includes CHF, nonischemic cardiomyopathy, EF of 15 to 20%, normal coronaries via left heart cath, history of alcohol abuse, hypertension, hyperlipidemia, diabetes, DIANN noncompliant with CPAP. The patient presents to the ER today with a complaint of painless lower extr emity swelling, shortness of breath, orthopnea, unintentional weight gain. The patient is intermittently compliant with diet, and with medications. ED work-up WBC 9.3, hemoglobin 13.5, platelets 16.4, sodium 141, potassium 4.2, creatinine 1.5, BNP 8317, troponin normal, blood sugar serum 7 0. Patient seen in ED at bedside patient is alert oriented x3. Patient has bilateral leg edema. Patient reported history of CHF and he reported he is compliant with his treatment for CHF. Patient has a history of hypertension, sleep apnea, pacemaker placement, and diabetes. I reviewed patient medical record, medication administration record, and vital signs. Past History Past Medical History: diabetes, heart failure, hypertension, hyperlipidemia Past Surgical History: Other (pace maker placement) Social history: lives with family Family history: diabetes, hypertension Medications and Allergies Allergies Allergy/AdvReac Type Severity Reaction Status Date / Time No Known Allergies Allergy Verified 01/09/21 09:27 Home Medications Medication Instructions Recorded Confirmed Last Taken Type AtorvaSTATin [Lipitor] 40 mg PO QHS #60 tablet 12/18/20 01/09/21 1 Day Ago Rx ~01/08/21 Thiamine [Vitamin B-1] 100 mg PO QDAY #60 tablet 12/18/20 01/09/21 1 Day Ago Rx ~01/08/21 glipiZIDE [Glucotrol] 5 mg PO BID #60 tablet 12/18/20 01/09/21 1 Day Ago Rx ~01/08/21 metFORMIN [Glucophage] 500 mg PO BID #60 tablet 12/18/20 01/09/21 1 Day Ago Rx ~01/08/21 Aspirin EC [Halfprin EC] 81 mg PO QDAY #30 tablet. 01/21/21 Unknown Rx Bumetanide [Bumex 1 mg tab] 1 mg PO 0600,1800 #60 tablet 01/21/21 Unknown Rx Folic Acid [Folvite] 1 mg PO QDAY #30 tablet 01/21/21 Unknown Rx Spironolactone [Aldactone] 25 mg PO QDAY #30 tablet 01/21/21 Unknown Rx carvediloL [Coreg] 3.125 mg PO BID #60 tablet 01/21/21 Unknown Rx lisinopriL [Zestril TAB] 10 mg PO QDAY #30 tablet 01/21/21 Unknown Rx Active Meds: Active Medications Dextrose (Dextrose 50% In Water (25gm) 50 Ml Vial) 50 gm IV Q30MIN PRN; Protocol PRN Reason: Hypoglycemia Review of Systems Constitutional: fatigue, weakness Ears, nose, mouth and throat: no epistaxis, no bleeding gums Cardiovascular: chest pain, shortness of breath Respiratory: shortness of breath Gastrointestinal: no melena Rectal: no hemorrhoids Musculoskeletal: no muscle weakness Neurological: no convulsions Psychiatric: anxiety Hematologic/Lymphatic: no easy bruising, no easy bleeding Allergic/Immunologic: no urticaria, no allergic rhinitis Exam - Constitutional Vitals: Temp Pulse Resp BP Pulse Ox 98.5 F 108 H 23 148/89 100 05/18/21 00:54 05/18/21 05:39 05/18/21 05:00 05/18/21 05:39 05/18/21 05:00 General appearance: Present: mild distress, obese - EENT Eyes: Present: PERRL ENT: hearing intact, clear oral mucosa - Neck Neck: Present: supple, normal ROM - Respiratory Respiratory effort: normal Respiratory: bilateral: CTA - Cardiovascular Heart Sounds: Present: S1 & S2. Absent: rub, click - Extremities Extremities: pulses symmetrical, Full ROM Extremity abnormal: edema Peripheral Pulses: within normal limits - Abdominal General gastrointestinal: Present: soft, non-tender, non-distended, normal bowel sounds Male genitourinary: Present: normal - Integumentary Integumentary: Present: clear, warm, dry - Musculoskeletal Musculoskeletal: gait normal, strength equal bilaterally - Psychiatric Psychiatric: appropriate mood/affect, intact judgment & insight - Neurologic Neurologic: CNII-XII intact, moves all extremities - Allied Health Allied health notes reviewed: nursing HEART Score - HEART Score Troponin: Troponin T < 0.010 ng/mL (0.00-0.029) 05/18/21 04:27 Results - Labs CBC & Chem 7: 05/18/21 01:01 05/18/21 01:01 Labs: Abnormal lab results 05/18/21 05/18/21 05/18/21 Range/Units 01:01 01:01 04:27 MCV 97 H (84-94) fl MCH 33 H (28-32) pg RDW 16.4 H (13.2-15.2) % Ada % (Auto) 8.5 H (0.0-7.3) % PT 15.5 H (12.2-14.9) Sec. INR 1.17 H (0.87-1.13) BUN 28 H (9-20) mg/dL Creatinine 1.5 H (0.8-1.3) mg/dL Glucose 70 L (75-100) mg/dL NT-Pro-B Natriuret Pep (0-450) pg/mL 05/18/21 Range/Units 04:27 MCV (84-94) fl MCH (28-32) pg RDW (13.2-15.2) % [place] % (Auto) (0.0-7.3) % PT (12.2-14.9) Sec. INR (0.87-1.13) BUN (9-20) mg/dL Creatinine (0.8-1.3) mg/dL Glucose (75-100) mg/dL NT-Pro-B Natriuret Pep 8317 H (0-450) pg/mL Assessment and Plan - Patient Problems (1) Acute exacerbation of CHF (congestive heart failure) Current Visit: No Status: Acute Qualifiers: Heart failure type: combined systolic and diastolic Qualified Code(s): I50.43 - Acute on chronic combined systolic (congestive) and diastolic (congestive) heart failure Plan to address problem: Continue cardioprotective measures Antiplatelets, statin, BB, and oxygen supplement if needed Diuretic and echocardiogram Cardiology consult will follow up with recommendation (2) Hypoglycemia Current Visit: Yes Status: Acute Plan to address problem: Patient with history of diabetes Came with low blood sugar questionable course monitor blood sugar with sliding scale protocol Hold antiglycemic agent-we will resume when blood sugar is stable (3) DAVID (acute kidney injury) Current Visit: No Status: Acute Plan to address problem: Monitor kidney function Avoid nephrotoxic's drugs We will consult banquet food server if needed. (4) DVT prophylaxis Current Visit: Yes Status: Acute Plan to address problem: Subcutaneous heparin (5) Full code status Current Visit: Yes Status: Acute Plan to address problem: Patient is full code
[2021-05-18] MEDS ORDERED: MAGNESIUM HYDROXIDE (MOM) ORAL LIQD UDC PO PRN (06:09)
[2021-05-18] MEDS ORDERED: ALUM-MAG HYDROXIDE-SIMETHICONE 200-200-20MG/5ML ORAL LIQD 30 ML PO PRN (06:09)
[2021-05-18] MEDS ORDERED: NITROGLYCERIN 0.4 MG TAB SUBL SL PRN (06:09)
[2021-05-18] MEDS ORDERED: SENNOSIDES 8.6 MG TAB PO PRN (06:09)
[2021-05-18] MEDS ORDERED: HYDROmorphone 1 MG/1 ML INJ IV PRN (06:09)
[2021-05-18] MEDS ORDERED: METOCLOPRAMIDE 10 MG/2 ML INJ IV PRN (06:09)
[2021-05-18] MEDS ORDERED: NALOXONE 0.4 MG/1 ML INJ IV PRN (06:09)
[2021-05-18] MEDS ORDERED: MORPHINE 2 MG/1 ML INJ IV PRN ×2 (06:09)
[2021-05-18] MEDS ORDERED: oxyCODONE /ACETAMINOPHEN 5-325MG TAB PO PRN (06:09)
[2021-05-18] MEDS ORDERED: HYDROcodone/ACETAMINOPHEN 5-325 MG TAB PO PRN (06:09)
[2021-05-18] MEDS ORDERED: FUROSEMIDE 40 MG/4 ML INJ IV SCH (06:09)
[2021-05-18] MEDS ORDERED: ACETAMINOPHEN 325 MG TAB PO PRN (06:09)
[2021-05-18] MEDS ORDERED: ONDANSETRON 4 MG/2 ML INJ IV PRN (06:09)
[2021-05-18] MEDS ORDERED: ALPRAZolam 0.25 MG TAB PO PRN (06:09)
[2021-05-18] MEDS ORDERED: metFORMIN 500 MG TAB PO SCH (08:00)
[2021-05-18] MEDS ORDERED: carvediloL 6.25 MG TAB PO SCH ×2 (08:00→12:30)
[2021-05-18] MEDS ORDERED: glipiZIDE 5 MG TAB PO SCH (08:00)
[2021-05-18] MEDS: INSULIN LISPRO 100 UNIT/ML SUB-Q SCH ×3 (08:11→17:18)
[2021-05-18] MEDS ORDERED: LISINOPRIL 10 MG TAB PO SCH (10:00)
[2021-05-18] MEDS: ASPIRIN 81 MG TAB CHEW PO SCH (10:27)
--- NOTE | 2021-05-18 10:27 | Consultation ---
History of Present Illness Consult date: 05/18/21 Requesting physician: BILL GUZMAN Consult reason: congestive heart failure History of present illness: This patient is a 40-year-old male with significant history of heart failure reduced ejection fraction, dilated cardiomyopathy EF 15 to 20%, pacemaker in situ, hypertension, hyperlipidemia, diabetes, DIANN. Patient is followed by Dr. Fisher with [facility] heart specialists. He presents to [facility] ER with complaint of bilateral lower extremity edema. Patient denies any chest pain or shortness of breath or other symptoms. He states he has been noncompliant with volume restriction and drinking lots of fluid/ice. He states he has not missed any medication doses. Exam patient has 2-3+ bilateral lower extremity edema. Abdomen is soft and nontender. Breath sounds are clear and equal bilaterally. Patient denies any weakness, dizziness, chest pain, shortness of breath, abdominal pain, N/V/D, recent illness or known exposures. Normal coronary arteries diagnosed via left heart cath 2018. Past History Past Medical History: diabetes, heart failure, hypertension, hyperlipidemia, other (See HPI) Past Surgical History: Other (pace maker placement) Social history: lives with family Family history: diabetes, hypertension Medications and Allergies Allergies Allergy/AdvReac Type Severity Reaction Status Date / Time No Known Allergies Allergy Verified 01/09/21 09:27 Home Medications Medication Instructions Recorded Confirmed Last Taken Type AtorvaSTATin [Lipitor] 40 mg PO QHS #60 tablet 12/18/20 01/09/21 1 Day Ago Rx ~01/08/21 Thiamine [Vitamin B-1] 100 mg PO QDAY #60 tablet 12/18/20 01/09/21 1 Day Ago Rx ~01/08/21 glipiZIDE [Glucotrol] 5 mg PO BID #60 tablet 12/18/20 01/09/21 1 Day Ago Rx ~01/08/21 metFORMIN [Glucophage] 500 mg PO BID #60 tablet 12/18/20 01/09/21 1 Day Ago Rx ~01/08/21 Aspirin EC [Halfprin EC] 81 mg PO QDAY #30 tablet. 01/21/21 Unknown Rx Bumetanide [Bumex 1 mg tab] 1 mg PO 0600,1800 #60 tablet 01/21/21 Unknown Rx Folic Acid [Folvite] 1 mg PO QDAY #30 tablet 01/21/21 Unknown Rx Spironolactone [Aldactone] 25 mg PO QDAY #30 tablet 01/21/21 Unknown Rx carvediloL [Coreg] 3.125 mg PO BID #60 tablet 01/21/21 Unknown Rx lisinopriL [Zestril TAB] 10 mg PO QDAY #30 tablet 01/21/21 Unknown Rx Active Meds: Active Medications Acetaminophen (Acetaminophen 325 Mg Tab) 650 mg PO Q4H PRN PRN Reason: Pain MILD(1-3)/Fever >100.5/SIMPSON Hydrocodone Bitart/Acetaminophen (Hydrocodone/Acetaminophen 5-325 Mg Tab) 2 each PO Q6H PRN PRN Reason: Pain, Moderate (4-6) Al Hydrox/Mg Hydrox/Simethicone (Alum-Mag Hydroxide-Simethicone [phone]/5ml Oral Liqd 30 Ml) 30 ml PO Q4H PRN PRN Reason: Indigestion Alprazolam (Alprazolam 0.25 Mg Tab) 0.125 mg PO Q8H PRN PRN Reason: Agitation Aspirin (Aspirin 81 Mg Tab Chew) 81 mg PO QDAY [facility] Atorvastatin Calcium (Atorvastatin 40 Mg Tab) 40 mg PO QHS [facility] Carvedilol (Carvedilol 6.25 Mg Tab) 6.25 mg PO BID@0800,1700 [facility] Last Admin: 05/18/21 08:14 Dose: Not Given Documented by: Dextrose (Dextrose 50% In Water (25gm) 50 Ml Vial) 50 gm IV Q30MIN PRN; Protocol PRN Reason: Hypoglycemia Famotidine (Famotidine 20 Mg/2 Ml Inj) 20 mg IV BID [facility] Furosemide (Furosemide 40 Mg/4 Ml Inj) 40 mg IV BID@0600,1800 [facility] Last Admin: 05/18/21 06:30 Dose: 40 mg Documented by: Heparin Sodium (Porcine) (Heparin 5,000 Unit/1 Ml Vial) 5,000 unit SUB-Q Q8HR [facility] Insulin Human Lispro (Insulin Lispro 100 Unit/Ml) 0 unit SUB-Q AC [facility]; Protocol Last Admin: 05/18/21 08:11 Dose: Not Given Documented by: Lisinopril (Lisinopril 10 Mg Tab) 10 mg PO QDAY [facility] Magnesium Hydroxide (Magnesium Hydroxide (Mom) Oral Liqd Udc) 30 ml PO Q4H PRN PRN Reason: Constipation Metoclopramide HCl (Metoclopramide 10 Mg/2 Ml Inj) 10 mg IV Q6H PRN PRN Reason: Nausea And Vomiting Morphine Sulfate (Morphine 2 Mg/1 Ml Inj) 2 mg IV Q5MIN PRN PRN Reason: Chest Pain unrelieved by NTG Morphine Sulfate (Morphine 2 Mg/1 Ml Inj) 2 mg IV Q4H PRN PRN Reason: Pain, Moderate (7-11) Naloxone HCl (Naloxone 0.4 Mg/1 Ml Inj) 0.1 mg IV Q2MIN PRN PRN Reason: Res Rate </= 8 or 02 SAT < 92% Nitroglycerin (Nitroglycerin 0.4 Mg Tab Subl) 0.4 mg SL .Q5MIN PRN PRN Reason: Chest Pain Ondansetron HCl (Ondansetron 4 Mg/2 Ml Inj) 4 mg IV Q8H PRN PRN Reason: Nausea And Vomiting Senna (Sennosides 8.6 Mg Tab) 8.6 mg PO Q12HR PRN PRN Reason: Constipation Sodium Chloride (Sodium Chloride 0.9% 10 Ml Flush Syringe) 10 ml IV BID IJEOMA Sodium Chloride (Sodium Chloride 0.9% 10 Ml Flush Syringe) 10 ml IV PRN PRN PRN Reason: LINE FLUSH Physical Examination Last Vital Signs Temp 98.5 F 05/18/21 00:54 Pulse 106 H 05/18/21 09:30 Resp 26 H 05/18/21 09:30 BP 97/75 05/18/21 09:30 Pulse Ox 98 05/18/21 09:30 General appearance: no acute distress HEENT: Positive: PERRL, Normocephaly, Mucus Membranes Moist Neck: Positive: neck supple, trachea midline Cardiac: Positive: Regular Rhythm, S1/S2 Lungs: Positive: Normal Exam, Normal Breath Sounds Neuro: Positive: Grossly Intact Abdomen: Positive: Unremarkable, Soft Skin: Negative: Rash, Wound Musculoskeletal: No Pain Extremities: Present: upper extr. pulses, lower extr. pulses, +2 Edema Results 05/18/21 01:01 05/18/21 01:01 Coagulation 05/18/21 Range/Units 04:27 PT 15.5 H (12.2-14.9) Sec. INR 1.17 H (0.87-1.13) CBC 05/18/21 Range/Units 01:01 WBC 9.3 (4.5-11.0) K/mm3 RBC 4.15 (3.65-5.03) M/mm3 Hgb 13.5 (11.8-15.2) gm/dl Hct 40.3 (35.5-45.6) % Plt Count 170 (140-440) K/mm3 Lymph # (Auto) 2.1 (1.2-5.4) K/mm3 [place] # (Auto) 0.8 (0.0-0.8) K/mm3 Eos # (Auto) 0.1 (0.0-0.4) K/mm3 Baso # (Auto) 0.1 (0.0-0.1) K/mm3 Comprehensive Metabolic Panel 05/18/21 Range/Units 01:01 Sodium 141 (137-145) mmol/L Potassium 4.2 (3.6-5.0) mmol/L Chloride 102.6 (98-107) mmol/L Carbon Dioxide 27 (22-30) mmol/L BUN 28 H (9-20) mg/dL Creatinine 1.5 H (0.8-1.3) mg/dL Glucose 70 L (75-100) mg/dL Calcium 8.7 (8.4-10.2) mg/dL - Imaging and Cardiology Echo: report reviewed (report reviewed (12/14/20) showed EF 15-20%, LV severely dilated, RV systolic function mod reduced, RV slightly dilated, mild TR, RVSP 44mmHg. ) Cardiac cath: report reviewed (Cardiac cath: report reviewed (06/2019) showed normal coronaries, EF 15-20%. ) EKG: report reviewed, image reviewed EKG interpretations - Telemetry EKG Rhythm: Paced Pacemaker: ventricular pacing w/capt Assessment and Plan Heart failure reduced ejection fraction in setting of dilated cardiomyopathy * Optimize volume control: Discontinue Lasix, initiate Bumex IV 1 mg twice daily, continue Aldactone 25 mg daily. Maintain strict I/O's * GDMT: Aspirin, statin, beta-carlos, ACEI DIANN on CPAP * CPAP nightly is ordered DVT prophylaxis * Heparin SQ Patient currently stable cardiac status. Will optimize volume control. Will follow Patient seen in conjunction with Dr Fisher who agrees with this assessment and plan of care - Patient Problems (1) DVT prophylaxis Current Visit: Yes Status: Acute (2) Nonischemic cardiomyopathy Current Visit: Yes Status: Chronic (3) Diabetes Current Visit: Yes Status: Chronic (4) Acute HFrEF (heart failure with reduced ejection fraction) Current Visit: Yes Status: Acute (5) ICD (implantable cardioverter-defibrillator) in place Current Visit: Yes Status: Chronic (6) Normal coronary arteries Current Visit: Yes Status: Chronic (7) DIANN (obstructive sleep apnea) Current Visit: Yes Status: Chronic (8) Tobacco use Current Visit: Yes Status: Chronic (9) DAVID (acute kidney injury) Current Visit: No Status: Acute
[2021-05-18] MEDS: FAMOTIDINE 20 MG/2 ML INJ IV SCH ×2 (10:30→22:09)
--- NOTE | 2021-05-18 10:34 | Electrocardiograph Report ---
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
[2021-05-18] MEDS: BUMETANIDE 1 MG/4 ML INJ IV SCH ×2 (11:25→18:54)
--- NOTE | 2021-05-18 13:15 | Event Note ---
Date: 05/18/21 Patient with CHF exacerbation and DAVID. I have seen and examined him. Cardiology consulted. Continue current management.
[2021-05-18] MEDS: HEPARIN 5,000 UNIT/1 ML VIAL SUB-Q SCH ×2 (14:34→22:09)
[2021-05-18] MEDS ORDERED: BUMETANIDE 1 MG/4 ML INJ IV SCH (18:00)
[2021-05-18] MEDS ORDERED: carvediloL 3.125 MG TAB PO SCH (22:00)
[2021-05-19] MEDS: BUMETANIDE 1 MG/4 ML INJ IV SCH (06:17)
[2021-05-19] MEDS: HEPARIN 5,000 UNIT/1 ML VIAL SUB-Q SCH (06:18)
[2021-05-19 06:41] LABS: Basophils # (Auto) 0.1 K/mm3 (0.0-0.1); Basophils % (Auto) 0.7 % (0.0-1.8); Eosinophils # (Auto) 0.1 K/mm3 (0.0-0.4); Eosinophils % (Auto) 1.3 % (0.0-4.3); Hematocrit 39.4 % (35.5-45.6); Mean Corpuscular HGB Conc 33 % (32-34); Mean Corpuscular Volume 97 fl (84-94); Monocytes # (Auto) 0.7 K/mm3 (0.0-0.8); Monocytes % (Auto) 7.9 % (0.0-7.3); Platelet Count 182 K/mm3 (140-440); Red Blood Count 4.06 M/mm3 (3.65-5.03)
[2021-05-19 06:53] LABS: Alanine Aminotransferase 35 units/L (7-56); Albumin 3.2 g/dL (3.9-5); BUN/Creatinine Ratio 19; Blood Urea Nitrogen 26 mg/dL (9-20); Calcium 8.4 mg/dL (8.4-10.2); Hemolysis Index 6
[2021-05-19] MEDS: INSULIN LISPRO 100 UNIT/ML SUB-Q SCH ×2 (08:07→12:07)
[2021-05-19 09:19] VITALS: BP 103/79
[2021-05-19] MEDS ORDERED: LISINOPRIL 5 MG TAB PO SCH ×2 (10:00)
[2021-05-19] MEDS ORDERED: POTASSIUM CHLORIDE ER 20 MEQ TAB PO SCH (10:00)
[2021-05-19] MEDS ORDERED: POTASSIUM CHLORIDE 10 MEQ 10 MEQ/100 ML BAG IV SCH (10:00)
[2021-05-19] MEDS: FAMOTIDINE 20 MG/2 ML INJ IV SCH (11:00)
[2021-05-19] MEDS: ASPIRIN 81 MG TAB CHEW PO SCH (11:00)
--- NOTE | 2021-05-19 12:31 | Progress Note ---
Assessment and Plan Heart failure reduced ejection fraction in setting of dilated cardiomyopathy * Bilateral lower extremity edema is improved 1+. Optimize volume control: Convert Bumex to home regimen of 1 mg p.o. twice daily, continue Aldactone 25 mg p.o. daily. * GDMT: Aspirin, statin, beta-carlos, ACEI DIANN on CPAP * CPAP nightly is ordered DVT prophylaxis * Heparin SQ Patient currently stable cardiac status. Patient may discharge from cardiology standpoint. Patient should follow-up with Dr Fisher, [facility] heart specialists in [facility] on 06/08/2021 at 12:45 PM. #[phone] Patient seen in conjunction with Dr Fisher who agrees with this assessment and plan of care - Patient Problems (1) DVT prophylaxis Current Visit: Yes Status: Acute (2) Nonischemic cardiomyopathy Current Visit: Yes Status: Chronic (3) Diabetes Current Visit: Yes Status: Chronic (4) Acute HFrEF (heart failure with reduced ejection fraction) Current Visit: Yes Status: Acute (5) ICD (implantable cardioverter-defibrillator) in place Current Visit: Yes Status: Chronic (6) Normal coronary arteries Current Visit: Yes Status: Chronic (7) DIANN (obstructive sleep apnea) Current Visit: Yes Status: Chronic (8) Tobacco use Current Visit: Yes Status: Chronic (9) DAVID (acute kidney injury) Current Visit: No Status: Acute Subjective Date of service: 05/19/21 Principal diagnosis: A/CHF Interval history: Patient resting comfortably in bed. No shortness of breath or chest pain overnight. Bilateral lower extremity edema is improved Telemetry reviewed shows paced rhythm heart rate 100. No events Objective Last Vital Signs Temp 98.5 F 05/19/21 08:37 Pulse 107 H 05/19/21 08:37 Resp 20 05/19/21 08:37 BP 103/79 05/19/21 08:37 Pulse Ox 95 05/19/21 08:37 - Physical Examination HEENT: Positive: PERRL, Normocephaly, Mucus Membranes Moist Neck: Positive: neck supple, trachea midline Cardiac: Positive: S1/S2, Other (Paced) Lungs: Positive: Normal Exam, Normal Breath Sounds Neuro: Positive: Grossly Intact Abdomen: Positive: Unremarkable, Soft Skin: Negative: Rash, Wound Musculoskeletal: No Pain Extremities: Present: upper extr. pulses, lower extr. pulses, +1 Edema - Labs and Meds Cardiac Enzymes 05/19/21 Range/Units 04:44 AST 27 (5-40) units/L CBC 05/19/21 Range/Units 04:44 WBC 8.6 (4.5-11.0) K/mm3 RBC 4.06 (3.65-5.03) M/mm3 Hgb 13.0 (11.8-15.2) gm/dl Hct 39.4 (35.5-45.6) % Plt Count 182 (140-440) K/mm3 Lymph # (Auto) 3.0 (1.2-5.4) K/mm3 [place] # (Auto) 0.7 (0.0-0.8) K/mm3 Eos # (Auto) 0.1 (0.0-0.4) K/mm3 Baso # (Auto) 0.1 (0.0-0.1) K/mm3 Comprehensive Metabolic Panel 05/19/21 Range/Units 04:44 Sodium 139 (137-145) mmol/L Potassium 3.5 L (3.6-5.0) mmol/L Chloride 100.7 (98-107) mmol/L Carbon Dioxide 30 (22-30) mmol/L BUN 26 H (9-20) mg/dL Creatinine 1.4 H (0.8-1.3) mg/dL Glucose 109 H (75-100) mg/dL Calcium 8.4 (8.4-10.2) mg/dL AST 27 (5-40) units/L ALT 35 (7-56) units/L Alkaline Phosphatase 64 (35-129) units/L Total Protein 6.6 (6.3-8.2) g/dL Albumin 3.2 L (3.9-5) g/dL - Imaging and Cardiology EKG: report reviewed, image reviewed Echo: report reviewed (report reviewed (12/14/20) showed EF 15-20%, LV severely dilated, RV systolic function mod reduced, RV slightly dilated, mild TR, RVSP 44mmHg. ) Cardiac cath: report reviewed (Cardiac cath: report reviewed (06/2019) showed normal coronaries, EF 15-20%. ) Pacemaker: ventricular pacing w/capt
[2021-05-19] MEDS ORDERED: POTASSIUM CHLORIDE ER 20 MEQ TAB PO ONE (12:40)
--- NOTE | 2021-05-19 12:45 | Discharge Summary ---
Providers - Providers Date of Admission: 05/18/21 04:58 Date of discharge: 05/19/21 Attending physician: LILY DIALLO 05/18/21 06:09 Consult to Physician [CONS] Routine Comment: Consulting Provider: WESTLEY BARBER Physician Instructions: Reason For Exam: chf Primary care physician: UNDERLAY STITCHER Hospitalization Condition: Good Hospital course: The patient is a 40-year-old gentleman. His past medical history includes CHF, nonischemic cardiomyopathy, EF of 15 to 20%, normal coronaries via left heart cath, history of alcohol abuse, hypertension, hyperlipidemia, diabetes, DIANN noncompliant with CPAP. The patient presented to the ER with a complaint of painless lower extremity swelling, shortness of breath, orthopnea, unintentional weight gain. The patient is intermittently compliant with diet, and with medications. ED work-up WBC 9.3, hemoglobin 13.5, platelets 16.4, sodium 141, potassium 4.2, creatinine 1.5, BNP 8317, troponin normal, blood sugar serum 7 0. Patient seen in ED at bedside patient is alert oriented x3. Patient has bilateral leg edema. Patient reported history of CHF and he reported he is compliant with his treatment for CHF. Patient has a history of hypertension, sleep apnea, pacemaker placement, and diabetes. He was admitted for CHF exacerbatiuon, was evaluated by Cardiology. He improved on medications, felt better and was discharged home on 05/19/21. (1) Acute exacerbation of CHF (congestive heart failure) Current Visit: No Status: Acute Qualifiers: Heart failure type: combined systolic and diastolic Qualified Code(s): I50.43 - Acute on chronic combined systolic (congestive) and diastolic (congestive) heart failure Plan to address problem: Continue cardioprotective measures Antiplatelets, statin, BB, and oxygen supplement if needed Diuretic and echocardiogram Cardiology consult will follow up with recommendation (2) Hypoglycemia Current Visit: Yes Status: Acute Plan to address problem: Patient with history of diabetes Came with low blood sugar questionable course monitor blood sugar with sliding scale protocol Hold antiglycemic agent-we will resume when blood sugar is stable (3) DAVID (acute kidney injury) Current Visit: No Status: Acute Plan to address problem: Monitor kidney function Avoid nephrotoxic's drugs We will consult cloth washer if needed. (4) DVT prophylaxis Current Visit: Yes Status: Acute Plan to address problem: Subcutaneous heparin (5) Full code status Current Visit: Yes Status: Acute Plan to address problem: Patient is full code Disposition: DC- TO HOME OR SELFCARE Final Discharge Diagnosis (Prints w/discharge instructions): 1.Acute on chronic systolic CHF. 2.DAVID - Discharge Diagnoses (1) Cardiomyopathy Status: Chronic (2) Diabetes Status: Chronic (3) ICD (implantable cardioverter-defibrillator) in place Status: Chronic (4) Nonischemic cardiomyopathy Status: Chronic Comment: (5) Obesity (BMI 30.0-34.9) Status: Chronic (6) DAVID (acute kidney injury) Status: Acute Comment: due to vasomotor nephropathy (7) Acute on chronic HFrEF (heart failure with reduced ejection fraction) Status: Acute Core Measure Documentation - Palliative Care Palliative Care/ Comfort Measures: Not Applicable - Core Measures Any of the following diagnoses?: heart failure - Heart Failure Discharge Requirements CONSTANTINO/ARB for LVSD if EF <40%: Yes Beta carlos at discharge: Yes Exam - Constitutional Vitals: Temp Pulse Resp BP Pulse Ox 98.5 F 107 H 20 103/79 95 05/19/21 08:37 05/19/21 08:37 05/19/21 08:37 05/19/21 08:37 05/19/21 08:37 Plan Activity: advance as tolerated Diet: low fat, low cholesterol, low salt, diabetic, renal Plan of Treatment: 1.Follow up with PCP in 1 week. 2.Follow up with Dr. Fisher on 06/08/21 Health Concerns: CEASE TOBACCO USE Follow up with: PRIMARY CAREMD [Primary Care Provider] - 7 Days
== END 2021-05-19 16:00 | disposition home or self-care (01) ==
LOC: ED 23:02 → 4A 05-18 04:58
PROVIDERS: ADMIT Hospitalist; ATTEND Internal Medicine
DX: I11.0 Hypertensive heart disease with heart failure (principal); I50.43 Acute on chronic combined systolic (congestive) and diastolic (congestive) heart failure; N17.9 Acute kidney failure, unspecified; E11.649 Type 2 diabetes mellitus with hypoglycemia without coma; E78.5 Hyperlipidemia, unspecified; I42.8 Other cardiomyopathies; G47.33 Obstructive sleep apnea (adult) (pediatric); E66.9 Obesity, unspecified; F17.200 Nicotine dependence, unspecified, uncomplicated; Z95.0 Presence of cardiac pacemaker; Z79.82 Long term (current) use of aspirin; Z79.84 Long term (current) use of oral hypoglycemic drugs; Z68.34 Body mass index [BMI] 34.0-34.9, adult
CPT/HCPCS: 36415; 71046; 80048; 80053; 82550; 82962; 83036; 83735; 83880; 84484; 85025; 85610; 93005; 96372; 96374; 96375; 96376; 99285; A9270; G0378; J1644; J1940

== ENCOUNTER 2021-07-18 12:54 | Inpatient (IN) | payer MEDICAID ==
--- NOTE | 2021-07-18 15:06 | XRay Report ---
CHEST 1 VIEW INDICATION / CLINICAL INFORMATION: sob. Dyspnea FINDINGS: SUPPORT DEVICES: None. HEART / MEDIASTINUM: Cardiomegaly. LUNGS / PLEURA: No acute airspace disease is identified. No pneumothorax. Signer Name: Masood Smith MD Signed: 07/18/2021 3:01 PM Workstation Name: [id number]
[2021-07-18 15:13] LABS: Alanine Aminotransferase 117 units/L (7-56); Albumin 3.1 g/dL (3.9-5); BUN/Creatinine Ratio 24; Blood Urea Nitrogen 34 mg/dL (9-20); Calcium 8.5 mg/dL (8.4-10.2); Hemolysis Index 9
[2021-07-18 15:26] LABS: Basophils % (Auto) 0.4 % (0.0-1.8); Eosinophils % (Auto) 0.4 % (0.0-4.3); Hematocrit 40.7 % (35.5-45.6); Hemoglobin 13.5 gm/dl (11.8-15.2); Lymphocytes # (Auto) 1.3 K/mm3 (1.2-5.4); Lymphocytes % (Auto) 17.7 % (13.4-35.0); Mean Corpuscular HGB Conc 33 % (32-34); Mean Corpuscular Volume 99 fl (84-94); Monocytes # (Auto) 0.6 K/mm3 (0.0-0.8); Monocytes % (Auto) 8.8 % (0.0-7.3); Platelet Count 124 K/mm3 (140-440); Red Cell Distribution Width 14.4 % (13.2-15.2)
[2021-07-18 15:31] LABS: INR 1.24 (0.87-1.13)
--- NOTE | 2021-07-18 16:22 | Emergency Department Report ---
ED Chest Pain HPI - General Chief Complaint: Chest Pain Stated Complaint: SOB Time Seen by Provider: 07/18/21 16:02 Source: patient Mode of arrival: Stretcher Limitations: No Limitations - History of Present Illness Initial Comments: 40-year-old male with a past medical history of obesity, renal insufficiency CHF, pacemaker/defibrillator sleep apnea, elevated cholesterol, CAD with stents, diabetes, and hypertension presents to the hospital with complaints of retaining fluid and shortness of breath. Patient states despite being compliant with his Bumex 1 mg twice daily he has continued to have worsening lower extremity edema with leg heaviness and orthopnea and PND. Patient has been taking all of his medications with exception of carvedilol 6.25 mg twice daily. Last dose 1 week ago. He complains of cough productive of sputum. He denies fever or chest pain. Patient was admitted 1 week ago to [facility] and had an echocardiogram of his heart as well as a "ultrasound of his liver and gallbladder." Patient has not had any acute changes in his medications. Patient does not feel any better since discharge and continues to contain fluid and does not feel like he is adequately urinating despite taking the diuretic. His ranch cook is Dr. Kruger. 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 Carty. Patient has a scheduled visit with Dr. Carty tomorrow and states that 2 weeks ago he was told his potassium was low and he is supposed to have a recheck tomorrow. - Related Data Previous Rx's Medication Instructions Recorded Last Taken Type AtorvaSTATin [Lipitor] 40 mg PO QHS #60 tablet 12/18/20 1 Day Ago Rx ~01/08/21 Thiamine [Vitamin B-1] 100 mg PO QDAY #60 tablet 12/18/20 1 Day Ago Rx ~01/08/21 glipiZIDE [Glucotrol] 5 mg PO BID #60 tablet 12/18/20 1 Day Ago Rx ~01/08/21 metFORMIN [Glucophage] 500 mg PO BID #60 tablet 12/18/20 1 Day Ago Rx ~01/08/21 Aspirin EC [Halfprin EC] 81 mg PO QDAY #30 tablet. 01/21/21 Unknown Rx Bumetanide [Bumex 1 mg tab] 1 mg PO 0600,1800 #60 tablet 01/21/21 Unknown Rx Folic Acid [Folvite] 1 mg PO QDAY #30 tablet 01/21/21 Unknown Rx Spironolactone [Aldactone] 25 mg PO QDAY #30 tablet 01/21/21 Unknown Rx carvediloL [Coreg] 3.125 mg PO BID #60 tablet 01/21/21 Unknown Rx lisinopriL [Zestril TAB] 10 mg PO QDAY #30 tablet 01/21/21 Unknown Rx Allergies Allergy/AdvReac Type Severity Reaction Status Date / Time No Known Allergies Allergy Verified 07/18/21 17:33 Heart Score - HEART Score History: Slightly suspicious EKG: Non-specific Age: < 45 Risk factors: > 3 risk factors or hx of atherosclerotic disease Troponin: < normal limit HEART Score: 3 - EKG Read Time Time EKG Completed: 14:07 EKG Read Time: 14:11 ED Review of Systems ROS: Stated complaint: SOB Other details as noted in HPI Comment: All other systems reviewed and negative ED Past Medical Hx - Past Medical History Previous Medical History?: Yes Hx Hypertension: Yes Hx Congestive Heart Failure: Yes Hx Diabetes: Yes Hx Liver Disease: No Hx Renal Disease: Yes Hx Asthma: No Hx COPD: No Additional medical history: SLEEP APNEA. high cholestrol - Surgical History Past Surgical History?: Yes Hx Internal Defibrillator: Yes Additional Surgical History: cardiac stents - Social History Smoking Status: Former Smoker - Medications Home Medications: Home Medications Medication Instructions Recorded Confirmed Last Taken Type AtorvaSTATin [Lipitor] 40 mg PO QHS #60 tablet 12/18/20 01/09/21 1 Day Ago Rx ~01/08/21 Thiamine [Vitamin B-1] 100 mg PO QDAY #60 tablet 12/18/20 01/09/21 1 Day Ago Rx ~01/08/21 glipiZIDE [Glucotrol] 5 mg PO BID #60 tablet 12/18/20 01/09/21 1 Day Ago Rx ~01/08/21 metFORMIN [Glucophage] 500 mg PO BID #60 tablet 12/18/20 01/09/21 1 Day Ago Rx ~01/08/21 Aspirin EC [Halfprin EC] 81 mg PO QDAY #30 tablet. 01/21/21 Unknown Rx Bumetanide [Bumex 1 mg tab] 1 mg PO 0600,1800 #60 tablet 01/21/21 Unknown Rx Folic Acid [Folvite] 1 mg PO QDAY #30 tablet 01/21/21 Unknown Rx Spironolactone [Aldactone] 25 mg PO QDAY #30 tablet 01/21/21 Unknown Rx carvediloL [Coreg] 3.125 mg PO BID #60 tablet 01/21/21 Unknown Rx lisinopriL [Zestril TAB] 10 mg PO QDAY #30 tablet 01/21/21 Unknown Rx ED Physical Exam - General Limitations: No Limitations - Other Other exam information: General: No acute distress Head: Atraumatic Eyes: normal appearance ENT: Moist mucous membranes Neck: Normal appearance, no midline tenderness Chest: Clear to auscultation bilaterally CV: Mild tachycardia, paced rhythm Abdomen: Soft, normal bowel sounds, nontender, nondistended, no rebound or guarding Back: Normal inspection Extremity: Normal inspection, significant bilateral lower extremity pitting edema Neuro: Alert O x 3, no facial asymmetry, speech clear, no gross motor sensory deficit Psych: Appropriate behavior Skin: No rash ED Course Vital Signs 07/18/21 07/18/21 07/18/21 13:52 14:00 14:16 Pulse Rate 109 H 104 H Respiratory 25 H 23 Rate Blood Pressure 186/155 O2 Sat by Pulse 98 94 93 Oximetry 07/18/21 07/18/21 14:30 14:38 Pulse Rate 104 H Respiratory Rate Blood Pressure 186/155 O2 Sat by Pulse 93 96 Oximetry - Consultations Consultation #1: 07/18/21 17:00 Case discussed with [facility] cardiology. Admission recommended for diuresis. Bumex ordered as directed YAHIR score - Yahir Score Age > 65: (0) No Aspirin use within the Past 7 Days: (0) No 3 or more CAD Risk Factors: (0) No 2 or more Angina events in past 24 hrs: (1) Yes Known CAD with more than 50% Stenosis: (0) No Elevated Cardiac Markers: (0) No ST Deviation Greater than 0.5mm: (0) No YAHIR Score: 1 ED Medical Decision Making - Lab Data Result diagrams: 07/18/21 14:35 07/18/21 14:35 Lab Results 07/18/21 07/18/21 07/18/21 Range/Units 14:35 14:35 14:35 WBC 7.4 (4.5-11.0) K/mm3 RBC 4.10 (3.65-5.03) M/mm3 Hgb 13.5 (11.8-15.2) gm/dl Hct 40.7 (35.5-45.6) % MCV 99 H (84-94) fl MCH 33 H (28-32) pg MCHC 33 (32-34) % RDW 14.4 (13.2-15.2) % Plt Count 124 L (140-440) K/mm3 Lymph % (Auto) 17.7 (13.4-35.0) % Glynn % (Auto) 8.8 H (0.0-7.3) % Eos % (Auto) 0.4 (0.0-4.3) % Baso % (Auto) 0.4 (0.0-1.8) % Lymph # (Auto) 1.3 (1.2-5.4) K/mm3 Glynn # (Auto) 0.6 (0.0-0.8) K/mm3 Eos # (Auto) 0.0 (0.0-0.4) K/mm3 Baso # (Auto) 0.0 (0.0-0.1) K/mm3 Seg Neutrophils % 72.7 H (40.0-70.0) % Seg Neutrophils # 5.4 (1.8-7.7) K/mm3 PT 16.2 H (12.2-14.9) Sec. INR 1.24 H (0.87-1.13) Sodium 133 L (137-145) mmol/L Potassium 4.2 (3.6-5.0) mmol/L Chloride 96.8 L (98-107) mmol/L Carbon Dioxide 27 (22-30) mmol/L Anion Gap 13 mmol/L BUN 34 H (9-20) mg/dL Creatinine 1.4 H (0.8-1.3) mg/dL Estimated GFR > 60 ml/min BUN/Creatinine Ratio 24 % Glucose 91 (75-100) mg/dL POC Glucose (70-105) mg/dL Calcium 8.5 (8.4-10.2) mg/dL Total Bilirubin 1.20 (0.1-1.2) mg/dL AST 81 H (5-40) units/L ALT 117 H (7-56) units/L Alkaline Phosphatase 109 (35-129) units/L Troponin T 0.020 (0.00-0.029) ng/mL NT-Pro-B Natriuret Pep 5652 H (0-450) pg/mL Total Protein 6.8 (6.3-8.2) g/dL Albumin 3.1 L (3.9-5) g/dL Albumin/Globulin Ratio 0.8 % 07/18/21 Range/Units 16:32 WBC (4.5-11.0) K/mm3 RBC (3.65-5.03) M/mm3 Hgb (11.8-15.2) gm/dl Hct (35.5-45.6) % MCV (84-94) fl MCH (28-32) pg MCHC (32-34) % RDW (13.2-15.2) % Plt Count (140-440) K/mm3 Lymph % (Auto) (13.4-35.0) % Glynn % (Auto) (0.0-7.3) % Eos % (Auto) (0.0-4.3) % Baso % (Auto) (0.0-1.8) % Lymph # (Auto) (1.2-5.4) K/mm3 Glynn # (Auto) (0.0-0.8) K/mm3 Eos # (Auto) (0.0-0.4) K/mm3 Baso # (Auto) (0.0-0.1) K/mm3 Seg Neutrophils % (40.0-70.0) % Seg Neutrophils # (1.8-7.7) K/mm3 PT (12.2-14.9) Sec. INR (0.87-1.13) Sodium (137-145) mmol/L Potassium (3.6-5.0) mmol/L Chloride (98-107) mmol/L Carbon Dioxide (22-30) mmol/L Anion Gap mmol/L BUN (9-20) mg/dL Creatinine (0.8-1.3) mg/dL Estimated GFR ml/min BUN/Creatinine Ratio % Glucose (75-100) mg/dL POC Glucose 95 (70-105) mg/dL Calcium (8.4-10.2) mg/dL Total Bilirubin (0.1-1.2) mg/dL AST (5-40) units/L ALT (7-56) units/L Alkaline Phosphatase (35-129) units/L Troponin T (0.00-0.029) ng/mL NT-Pro-B Natriuret Pep (0-450) pg/mL Total Protein (6.3-8.2) g/dL Albumin (3.9-5) g/dL Albumin/Globulin Ratio % - EKG Data -: EKG Interpreted by Me (AV paced rhythm) EKG shows normal: intervals (QTc interval 517), QRS complexes (QRS duration 130), ST-T waves (No acute ischemic findings) Rate: normal (Rate 105) - EKG Data When compared to previous EKG there are: no significant change - Radiology Data Radiology results: report reviewed CHEST 1 VIEW INDICATION / CLINICAL INFORMATION: sob. Dyspnea FINDINGS: SUPPORT DEVICES: None. HEART / MEDIASTINUM: Cardiomegaly. LUNGS / PLEURA: No acute airspace disease is identified. No pneumothorax. - Medical Decision Making 40-year-old male presents to the hospital complaints worsening lower extremity edema and dyspnea patient likely secondary CHF exacerbation despite compliance with Bumex as directed. Patient was recently mid to the hospital without improvement patient denies chest pain. No signs of pulmonary edema. Patient has elevated BNP, normal cardiac enzymes, and unchanged EKG for ischemic fin dings. IV Bumex provided as per cardiology recommendation. Admission recommended. Patient be admitted to the hospital service Critical Care Time: No Critical care attestation.: If time is entered above; I have spent that time in minutes in the direct care of this critically ill patient, excluding procedure time. ED Disposition Clinical Impression: ICD (implantable cardioverter-defibrillator) in place CHF exacerbation Qualifiers: Heart failure type: combined systolic and diastolic Qualified Code(s): I50.43 - Acute on chronic combined systolic (congestive) and diastolic (congestive) heart failure Disposition: ADMITTED INPATIENT Is pt being admited?: Yes Condition: Stable Time of Disposition: 17:04 (Dr barker/hospitalist)
[2021-07-18] MEDS ORDERED: FUROSEMIDE 40 MG/4 ML INJ IV ONE (16:25)
[2021-07-18] MEDS ORDERED: BUMETANIDE 1 MG/4 ML INJ IV ONE (16:37)
--- NOTE | 2021-07-18 17:07 | Consultation ---
History of Present Illness Consult date: 07/18/21 Requesting physician: ROSANA GUERRERO Consult reason: congestive heart failure History of present illness: This patient is a 40 y/o male with PMHx of HFrEF, dilated cardiomyopathy EF 15 to 20%, pacemaker in situ, hypertension, hyperlipidemia, diabetes, DIANN. Patient is followed by Dr. Fisher of our practice. The patient presents with a complaint of bilateral lower extremity edema x2 days. He reports that las week he was admitted to [facility] for similar complaints but left because he did not feel right at that hospital. He states it took too long for them to get the fluid off. He reports coming to the ED today because his legs are bigger than they have ever been. Currently he reports that he cannot walk more than a few feet or climb stairs due to the amount of fluid he has. He reports that at [facility] he is able to walk without difficulties but does get SOB if going up stairs. He also reports SOB, SCHMIDT, a dry cough, fatigue, and orthopnea. Patient denies any chest pain or palpitations. He states he has been noncompliant with volume restriction and drinking lots of fluid/ice. He states he has not missed any medication doses and is complaint with salt intake. Past History Past Medical History: heart failure, hypertension, hyperlipidemia Past Surgical History: Other (BiV ICD) Social history: lives with family Family history: diabetes, hypertension Medications and Allergies Allergies Allergy/AdvReac Type Severity Reaction Status Date / Time No Known Allergies Allergy Verified 07/18/21 14:40 Home Medications Medication Instructions Recorded Confirmed Last Taken Type AtorvaSTATin [Lipitor] 40 mg PO QHS #60 tablet 12/18/20 01/09/21 1 Day Ago Rx ~01/08/21 Thiamine [Vitamin B-1] 100 mg PO QDAY #60 tablet 12/18/20 01/09/21 1 Day Ago Rx ~01/08/21 glipiZIDE [Glucotrol] 5 mg PO BID #60 tablet 12/18/20 01/09/21 1 Day Ago Rx ~01/08/21 metFORMIN [Glucophage] 500 mg PO BID #60 tablet 12/18/20 01/09/21 1 Day Ago Rx ~01/08/21 Aspirin EC [Halfprin EC] 81 mg PO QDAY #30 tablet. 01/21/21 Unknown Rx Bumetanide [Bumex 1 mg tab] 1 mg PO 0600,1800 #60 tablet 01/21/21 Unknown Rx Folic Acid [Folvite] 1 mg PO QDAY #30 tablet 01/21/21 Unknown Rx Spironolactone [Aldactone] 25 mg PO QDAY #30 tablet 01/21/21 Unknown Rx carvediloL [Coreg] 3.125 mg PO BID #60 tablet 01/21/21 Unknown Rx lisinopriL [Zestril TAB] 10 mg PO QDAY #30 tablet 01/21/21 Unknown Rx Review of Systems All systems: negative Constitutional: fatigue, weakness, no fever, no chills, no sweats Ears, nose, mouth and throat: no nasal congestion, no nasal discharge, no sinus pressure Cardiovascular: orthopnea, edema, shortness of breath, dyspnea on exertion, paroxysmal nocturnal dyspnea, no chest pain, no palpitations, no rapid/irregular heart beat Respiratory: cough, shortness of breath, dyspnea on exertion Gastrointestinal: no abdominal pain, no nausea, no vomiting, no diarrhea Musculoskeletal: no neck pain, no shooting arm pain, no arm numbness/tingling Integumentary: no rash, no pruritis, no redness Neurological: no head injury, no transient paralysis, no paralysis Psychiatric: no anxiety, no memory loss Endocrine: no cold intolerance, no heat intolerance Hematologic/Lymphatic: no easy bruising, no easy bleeding Physical Examination Vital Signs Pulse Ox 98 07/18/21 13:52 General appearance: no acute distress HEENT: Positive: PERRL Neck: Positive: trachea midline Cardiac: Positive: Reg Rate and Rhythm Lungs: Positive: Normal Breath Sounds Neuro: Positive: Grossly Intact Abdomen: Positive: Soft, Active Bowel Sounds Extremities: Present: upper extr. pulses, lower extr. pulses, +3 Edema Results 07/18/21 14:35 07/18/21 14:35 Cardiac Enzymes 07/18/21 Range/Units 14:35 AST 81 H (5-40) units/L Coagulation 07/18/21 Range/Units 14:35 PT 16.2 H (12.2-14.9) Sec. INR 1.24 H (0.87-1.13) CBC 07/18/21 Range/Units 14:35 WBC 7.4 (4.5-11.0) K/mm3 RBC 4.10 (3.65-5.03) M/mm3 Hgb 13.5 (11.8-15.2) gm/dl Hct 40.7 (35.5-45.6) % Plt Count 124 L (140-440) K/mm3 Lymph # (Auto) 1.3 (1.2-5.4) K/mm3 Tucker # (Auto) 0.6 (0.0-0.8) K/mm3 Eos # (Auto) 0.0 (0.0-0.4) K/mm3 Baso # (Auto) 0.0 (0.0-0.1) K/mm3 Comprehensive Metabolic Panel 07/18/21 Range/Units 14:35 Sodium 133 L (137-145) mmol/L Potassium 4.2 (3.6-5.0) mmol/L Chloride 96.8 L (98-107) mmol/L Carbon Dioxide 27 (22-30) mmol/L BUN 34 H (9-20) mg/dL Creatinine 1.4 H (0.8-1.3) mg/dL Glucose 91 (75-100) mg/dL Calcium 8.5 (8.4-10.2) mg/dL AST 81 H (5-40) units/L ALT 117 H (7-56) units/L Alkaline Phosphatase 109 (35-129) units/L Total Protein 6.8 (6.3-8.2) g/dL Albumin 3.1 L (3.9-5) g/dL - Imaging and Cardiology Echo: report reviewed Cardiac cath: report reviewed EKG interpretations - Telemetry EKG Rhythm: Paced Pacemaker: ventricular pacing w/capt Assessment and Plan HFrEF HTN * EKG Paced 105. No acute ischemic changes * BNP noted to be elevated, BLE edema 2-3+, Breath sound clear bilaterally * Echo 12/14/20- EF 15-20%, LV severely dilated, RV systolic function mod reduced, RV slightly dilated, mild TR, RVSP 44mmHg * Cardiac cath 06/2019: showed normal coronaries, EF 15-20% * Optimize volume control: Initiate Bumex 1 mg IV BID, Aldactone 25 mg daily. Maintain strict I/O's * GDMT: Aspirin, coreg 12.5mg PO BID, Lisinopril 10mg PO QD, atorvastatin 40mg QHS DIANN on CPAP * Recommend CPAP Plan: Diuresis. Resume home medications. Troponins pending. Will continue to follow Patient seen in conjunction with Dr Fisher who agrees with this assessment and plan of care - Patient Problems (1) Acute HFrEF (heart failure with reduced ejection fraction) Current Visit: No Status: Acute (2) Hyperlipidemia Current Visit: No Status: Acute Qualifiers: Hyperlipidemia type: mixed hyperlipidemia Qualified Code(s): E78.2 - Mixed hyperlipidemia (3) Cardiomyopathy Current Visit: No Status: Chronic (4) Diabetes Current Visit: No Status: Chronic (5) Hypertension Current Visit: No Status: Chronic Qualifiers: Hypertension type: essential hypertension (6) ICD (implantable cardioverter-defibrillator) in place Current Visit: No Status: Chronic (7) Obesity (BMI 30.0-34.9) Current Visit: No Status: Chronic (8) Sleep apnea Current Visit: No Status: Suspected
[2021-07-18] MEDS ORDERED: SPIRONOLACTONE 25 MG TAB PO SCH (18:00)
[2021-07-18] MEDS ORDERED: LISINOPRIL 10 MG TAB PO SCH (18:00)
[2021-07-18] MEDS: carvediloL 3.125 MG TAB PO SCH (21:43)
[2021-07-18] MEDS: LISINOPRIL 10 MG TAB PO SCH (21:50)
[2021-07-18] MEDS: THIAMINE 100 MG TAB PO SCH (21:51)
[2021-07-18] MEDS: ASPIRIN EC 81 MG TAB PO SCH (21:51)
[2021-07-18] MEDS: SPIRONOLACTONE 25 MG TAB PO SCH (21:59)
[2021-07-18] MEDS ORDERED: carvediloL 6.25 MG TAB PO SCH (22:00)
[2021-07-19] MEDS ORDERED: HYDROmorphone 1 MG/1 ML INJ IV PRN (00:55)
[2021-07-19 05:24] LABS: BUN/Creatinine Ratio 30; Blood Urea Nitrogen 39 mg/dL (9-20); Calcium 8.3 mg/dL (8.4-10.2); Hemolysis Index 28
--- NOTE | 2021-07-19 06:25 | History and Physical Report ---
History of Present Illness Date of examination: 07/18/21 Date of admission: 07/18/21 17:05 Chief complaint: Shortness of breath and increased swelling of the legs for 1 week History of present illness: 40-year-old -Thai man with multiple medical problems including type 2 diabetes, congestive heart failure, hypertension, coronary artery disease with stents and status post defibrillator/pacemaker comes in for increasing shortness of breath over the last 1 week. Patient has been having orthopnea and paroxysmal nocturnal dyspnea attacks. Patient says he is compliant with medications except for Coreg. Patient has class IV NYHA symptoms. Patient is c omfortable sputum. Denies fever. Patient has appointment with [facility] tomorrow for LifeVest. No chest pain. Also increased swelling of both the lower extremities. No exacerbating or relieving factors. The rest is a relieving factor. Heart score is 3 - Past Medical History --Hypertension: Yes --Congestive Heart Failure: Yes --Diabetes: Yes --Renal Disease: Yes Additional medical history: SLEEP APNEA. high cholestrol - Surgical History --Internal Defibrillator: Yes --Additional Surgical History: cardiac stents - Social History --Smoking Status: Former Smoker -Family history --Htn Review of systems ROS Constitutional no weight loss or weight gain no fever or chills HEENT no sore throat no post nasal drip no diplopia Neck no neck stiffness no lymph gland enlargement Chest and lungs no shortness of breath cough or wheezing CVS shortness of breath present and orthopnea present GI no nausea no vomiting no diarrhea Genitourinary system no dysuria no flank pain Musculoskeletal system no muscle pains no joint pains [employer] no syncope no seizures Skin no rash no itching Psychiatric no depression no homicidal or suicidal tendencies Hematologic no lymphedema or bruising Endocrine no polydipsia no polyuria no cold intolerance no heat intolerance Past History Past Medical History: heart failure, hypertension, hyperlipidemia Past Surgical History: Other (BiV ICD) Social history: lives with family Family history: diabetes, hypertension Medications and Allergies Allergies Allergy/AdvReac Type Severity Reaction Status Date / Time No Known Allergies Allergy Verified 07/18/21 17:33 Home Medications Medication Instructions Recorded Confirmed Last Taken Type AtorvaSTATin [Lipitor] 40 mg PO QHS #60 tablet 12/18/20 01/09/21 1 Day Ago Rx ~01/08/21 Thiamine [Vitamin B-1] 100 mg PO QDAY #60 tablet 12/18/20 01/09/21 1 Day Ago Rx ~01/08/21 glipiZIDE [Glucotrol] 5 mg PO BID #60 tablet 12/18/20 01/09/21 1 Day Ago Rx ~01/08/21 metFORMIN [Glucophage] 500 mg PO BID #60 tablet 12/18/20 01/09/21 1 Day Ago Rx ~01/08/21 Aspirin EC [Halfprin EC] 81 mg PO QDAY #30 tablet. 01/21/21 Unknown Rx Bumetanide [Bumex 1 mg tab] 1 mg PO 0600,1800 #60 tablet 01/21/21 Unknown Rx Folic Acid [Folvite] 1 mg PO QDAY #30 tablet 01/21/21 Unknown Rx Spironolactone [Aldactone] 25 mg PO QDAY #30 tablet 01/21/21 Unknown Rx carvediloL [Coreg] 3.125 mg PO BID #60 tablet 01/21/21 Unknown Rx lisinopriL [Zestril TAB] 10 mg PO QDAY #30 tablet 01/21/21 Unknown Rx Active Meds: Active Medications Aspirin (Aspirin Ec 81 Mg Tab) 81 mg PO QDAY [facility] Last Admin: 07/18/21 21:51 Dose: 81 mg Documented by: Atorvastatin Calcium (Atorvastatin 40 Mg Tab) 40 mg PO QHS [facility] Bumetanide (Bumetanide 1 Mg/4 Ml Inj) 1 mg IV BID [facility] Carvedilol (Carvedilol 3.125 Mg Tab) 3.125 mg PO BID [facility] Last Admin: 07/18/21 21:43 Dose: Not Given Documented by: Folic Acid (Folic Acid 1 Mg Tab) 1 mg PO QDAY [facility] Glipizide (Glipizide 5 Mg Tab) 5 mg PO BIDDIAB [facility] Hydromorphone HCl (Hydromorphone 1 Mg/1 Ml Inj) 0.5 mg IV Q3H PRN PRN Reason: Pain , Severe (7-10) Last Admin: 07/19/21 01:40 Dose: 0.5 mg Documented by: Lisinopril (Lisinopril 10 Mg Tab) 10 mg PO QDAY [facility] Last Admin: 07/18/21 21:50 Dose: Not Given Documented by: Metformin HCl (Metformin 500 Mg Tab) 500 mg PO BIDDIAB [facility] Spironolactone (Spironolactone 25 Mg Tab) 25 mg PO QDAY [facility] Last Admin: 07/18/21 21:59 Dose: Not Given Documented by: Thiamine HCl (Thiamine 100 Mg Tab) 100 mg PO QDAY [facility] Last Admin: 07/18/21 21:51 Dose: 100 mg Documented by: Exam - Constitutional Vitals: Temp Pulse Resp BP Pulse Ox 97.4 F L 104 H 18 96/65 98 07/19/21 03:49 07/19/21 03:49 07/19/21 05:42 07/19/21 03:49 07/19/21 05:42 General appearance: Present: mild distress, well-nourished - EENT Eyes: Present: PERRL ENT: hearing intact, clear oral mucosa - Neck Neck: Present: supple, normal ROM - Respiratory Respiratory effort: normal Respiratory: bilateral: CTA - Cardiovascular Heart rate: 68 Rhythm: regular Heart Sounds: Present: S1 & S2. Absent: rub, click - Extremities Extremities: no ischemia, pulses intact, pulses symmetrical, abnormal (2+ pedal edema) Extremity abnormal: edema (2+ pedal edema) Peripheral Pulses: within normal limits - Abdominal General gastrointestinal: Present: soft, non-tender, non-distended, normal bowel sounds Male genitourinary: Present: normal - Integumentary Integumentary: Present: clear, warm, dry - Musculoskeletal Musculoskeletal: gait normal, strength equal bilaterally - Psychiatric Psychiatric: appropriate mood/affect, intact judgment & insight - Neurologic Neurologic: CNII-XII intact, moves all extremities HEART Score - HEART Score History: Moderately suspicious EKG: Non-specific Age: < 45 Risk factors: > 3 risk factors or hx of atherosclerotic disease Troponin: Troponin T < 0.010 ng/mL (0.00-0.029) 07/18/21 20:03 Troponin: < normal limit HEART Score: 4 - Critical Actions Critical Actions: 4-6 pts:12-16.6% risk of adverse cardiac event. Should be admitted Results - Labs CBC & Chem 7: 07/18/21 14:35 07/19/21 04:09 Labs: Laboratory Last Values WBC 7.4 K/mm3 (4.5-11.0) 07/18/21 14:35 RBC 4.10 M/mm3 (3.65-5.03) 07/18/21 14:35 Hgb 13.5 gm/dl (11.8-15.2) 07/18/21 14:35 Hct 40.7 % (35.5-45.6) 07/18/21 14:35 MCV 99 fl (84-94) H 07/18/21 14:35 MCH 33 pg (28-32) H 07/18/21 14:35 MCHC 33 % (32-34) 07/18/21 14:35 RDW 14.4 % (13.2-15.2) 07/18/21 14:35 Plt Count 124 K/mm3 (140-440) L 07/18/21 14:35 Lymph % (Auto) 17.7 % (13.4-35.0) 07/18/21 14:35 [place] % (Auto) 8.8 % (0.0-7.3) H 07/18/21 14:35 Eos % (Auto) 0.4 % (0.0-4.3) 07/18/21 14:35 Baso % (Auto) 0.4 % (0.0-1.8) 07/18/21 14:35 Lymph # (Auto) 1.3 K/mm3 (1.2-5.4) 07/18/21 14:35 [place] # (Auto) 0.6 K/mm3 (0.0-0.8) 07/18/21 14:35 Eos # (Auto) 0.0 K/mm3 (0.0-0.4) 07/18/21 14:35 Baso # (Auto) 0.0 K/mm3 (0.0-0.1) 07/18/21 14:35 Seg Neutrophils % 72.7 % (40.0-70.0) H 07/18/21 14:35 Seg Neutrophils # 5.4 K/mm3 (1.8-7.7) 07/18/21 14:35 PT 16.2 Sec. (12.2-14.9) H 07/18/21 14:35 INR 1.24 (0.87-1.13) H 07/18/21 14:35 Sodium 133 mmol/L (137-145) L 07/19/21 04:09 Potassium 4.1 mmol/L (3.6-5.0) 07/19/21 04:09 Chloride 97.2 mmol/L (98-107) L 07/19/21 04:09 Carbon Dioxide 26 mmol/L (22-30) 07/19/21 04:09 Anion Gap 14 mmol/L 07/19/21 04:09 BUN 39 mg/dL (9-20) H 07/19/21 04:09 Creatinine 1.3 mg/dL (0.8-1.3) 07/19/21 04:09 Estimated GFR > 60 ml/min 07/19/21 04:09 BUN/Creatinine Ratio 30 % 07/19/21 04:09 Glucose 192 mg/dL (75-100) H 07/19/21 04:09 POC Glucose 95 mg/dL (70-105) 07/18/21 16:32 Calcium 8.3 mg/dL (8.4-10.2) L 07/19/21 04:09 Total Bilirubin 1.20 mg/dL (0.1-1.2) 07/18/21 14:35 AST 81 units/L (5-40) H 07/18/21 14:35 ALT 117 units/L (7-56) H 07/18/21 14:35 Alkaline Phosphatase 109 units/L (35-129) 07/18/21 14:35 Troponin T < 0.010 ng/mL (0.00-0.029) 07/18/21 20:03 NT-Pro-B Natriuret Pep 5652 pg/mL (0-450) H 07/18/21 14:35 Total Protein 6.8 g/dL (6.3-8.2) 07/18/21 14:35 Albumin 3.1 g/dL (3.9-5) L 07/18/21 14:35 Albumin/Globulin Ratio 0.8 % 07/18/21 14:35 - Imaging and Cardiology EKG: report reviewed (Pacemaker rhythm, heart rate of 98) Chest x-ray: report reviewed (No acute findings) Smith/IV: Voiding Method Toilet Assessment and Plan Advance Directives: Yes (Full code) VTE prophylaxis?: Chemical Plan of care discussed with patient/family: Yes - Patient Problems (1) Acute exacerbation of CHF (congestive heart failure) Current Visit: No Status: Acute Qualifiers: Heart failure type: combined systolic and diastolic Qualified Code(s): I50.43 - 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 Plan to address problem: Patient will be diuresed with IV Lasix 40 mg every 12 Echocardiogram for ejection fraction Cardiology consult requested Daily intake and output Daily weights Patient on Bumex before (2) Hypertensive emergency Current Visit: Yes Status: Acute Plan to address problem: Hydralazine added at 50 mg every 8 hours Hydralazine IV as needed every 3 hours (3) DAVID (acute kidney injury) Current Visit: Yes Status: Acute Plan to address problem: Secondary to vasomotor nephropathy Trend the creatinine (4) T2DM (type 2 diabetes mellitus) Current Visit: Yes Status: Chronic Qualifiers: Diabetes mellitus shelter insulin use: without shelter use Plan to address problem: Continue oral hypoglycemics and coverage for now Check hemoglobin A1c (5) Hyperlipidemia Current Visit: Yes Status: Chronic Qualifiers: Hyperlipidemia type: mixed hyperlipidemia Qualified Code(s): E78.2 - Mixed hyperlipidemia Plan to address problem: Continue statins (6) Hyponatremia Current Visit: Yes Status: Acute Plan to address problem: Mild May correct with dialysis (7) ICD (implantable cardioverter-defibrillator) in place Current Visit: Yes Status: Chronic Plan to address problem: Patient is due for LifeVest (8) Malnutrition Current Visit: Yes Status: Chronic Qualifiers: Protein-calorie malnutrition severity: mild Plan to address problem: Dietary supplements initiated (9) DVT prophylaxis Current Visit: Yes Status: Acute Plan to address problem: On heparin GI prophylaxis
[2021-07-19] MEDS: BUMETANIDE 1 MG/4 ML INJ IV SCH ×3 (07:29→22:07)
--- NOTE | 2021-07-19 10:04 | Progress Note ---
Assessment and Plan Assessment and plan: (1) Acute exacerbation of CHF (congestive heart failure) Patient will be diuresed with IV Lasix 40 mg every 12 Echocardiogram for ejection fraction Cardiology consult requested Daily intake and output Daily weights Patient on Bumex before (2) Hypertensive emergency Hydralazine added at 50 mg every 8 hours Hydralazine IV as needed every 3 hours (3) DAVID (acute kidney injury) Secondary to vasomotor nephropathy Trend the creatinine (4) T2DM (type 2 diabetes mellitus) Continue oral hypoglycemics and coverage for now Check hemoglobin A1c (5) Hyperlipidemia Continue statins (6) Hyponatremia Mild May correct with dialysis (7) ICD (implantable cardioverter-defibrillator) in place Patient is due for LifeVest (8) Malnutrition Dietary supplements initiated (9) DVT prophylaxis On heparin GI prophylaxis 07/19/2021. Continue diuresis per cardiology recommendations. Follow-up troponins. Continue GDMT with aspirin, Coreg 12.5 mg p.o. twice daily, lisinopril 10 mg p.o. daily and atorvastatin 40 mg nightly. Continue Bumex 1 mg IV twice daily and Aldactone 25 mg daily. Continue Accu-Cheks and sliding scale insulin History Interval history: No new issues overnight. Hospitalist Physical - Constitutional Vitals: Temp Pulse Resp BP Pulse Ox 97.3 F L 105 H 18 82/57 99 07/19/21 07:27 07/19/21 07:27 07/19/21 07:27 07/19/21 07:27 07/19/21 07:27 General appearance: Present: no acute distress, well-nourished - EENT Eyes: Present: PERRL, EOM intact ENT: hearing intact, clear oral mucosa, dentition normal - Neck Neck: Present: supple, normal ROM - Respiratory Respiratory effort: normal Respiratory: bilateral: CTA - Cardiovascular Rhythm: regular Heart Sounds: Present: S1 & S2. Absent: gallop, rub - Extremities Extremities: no ischemia, No edema, Full ROM - Abdominal General gastrointestinal: soft, non-tender, non-distended, normal bowel sounds - Integumentary Integumentary: Present: clear, warm, dry - Neurologic Neurologic: CNII-XII intact, moves all extremities HEART Score - HEART Score EKG: Non-specific Age: < 45 Risk factors: > 3 risk factors or hx of atherosclerotic disease Troponin: Troponin T < 0.010 ng/mL (0.00-0.029) 07/18/21 20:03 Troponin: < normal limit - Critical Actions Critical Actions: 4-6 pts:12-16.6% risk of adverse cardiac event. Should be admitted Results - Labs CBC & Chem 7: 07/18/21 14:35 07/19/21 04:09 Labs: Laboratory Last Values WBC 7.4 K/mm3 (4.5-11.0) 07/18/21 14:35 RBC 4.10 M/mm3 (3.65-5.03) 07/18/21 14:35 Hgb 13.5 gm/dl (11.8-15.2) 07/18/21 14:35 Hct 40.7 % (35.5-45.6) 07/18/21 14:35 MCV 99 fl (84-94) H 07/18/21 14:35 MCH 33 pg (28-32) H 07/18/21 14:35 MCHC 33 % (32-34) 07/18/21 14:35 RDW 14.4 % (13.2-15.2) 07/18/21 14:35 Plt Count 124 K/mm3 (140-440) L 07/18/21 14:35 Lymph % (Auto) 17.7 % (13.4-35.0) 07/18/21 14:35 [place] % (Auto) 8.8 % (0.0-7.3) H 07/18/21 14:35 Eos % (Auto) 0.4 % (0.0-4.3) 07/18/21 14:35 Baso % (Auto) 0.4 % (0.0-1.8) 07/18/21 14:35 Lymph # (Auto) 1.3 K/mm3 (1.2-5.4) 07/18/21 14:35 [place] # (Auto) 0.6 K/mm3 (0.0-0.8) 07/18/21 14:35 Eos # (Auto) 0.0 K/mm3 (0.0-0.4) 07/18/21 14:35 Baso # (Auto) 0.0 K/mm3 (0.0-0.1) 07/18/21 14:35 Seg Neutrophils % 72.7 % (40.0-70.0) H 07/18/21 14:35 Seg Neutrophils # 5.4 K/mm3 (1.8-7.7) 07/18/21 14:35 PT 16.2 Sec. (12.2-14.9) H 07/18/21 14:35 INR 1.24 (0.87-1.13) H 07/18/21 14:35 Sodium 133 mmol/L (137-145) L 07/19/21 04:09 Potassium 4.1 mmol/L (3.6-5.0) 07/19/21 04:09 Chloride 97.2 mmol/L (98-107) L 07/19/21 04:09 Carbon Dioxide 26 mmol/L (22-30) 07/19/21 04:09 Anion Gap 14 mmol/L 07/19/21 04:09 BUN 39 mg/dL (9-20) H 07/19/21 04:09 Creatinine 1.3 mg/dL (0.8-1.3) 07/19/21 04:09 Estimated GFR > 60 ml/min 07/19/21 04:09 BUN/Creatinine Ratio 30 % 07/19/21 04:09 Glucose 192 mg/dL (75-100) H 07/19/21 04:09 POC Glucose 95 mg/dL (70-105) 07/18/21 16:32 Calcium 8.3 mg/dL (8.4-10.2) L 07/19/21 04:09 Total Bilirubin 1.20 mg/dL (0.1-1.2) 07/18/21 14:35 AST 81 units/L (5-40) H 07/18/21 14:35 ALT 117 units/L (7-56) H 07/18/21 14:35 Alkaline Phosphatase 109 units/L (35-129) 07/18/21 14:35 Troponin T < 0.010 ng/mL (0.00-0.029) 07/18/21 20:03 NT-Pro-B Natriuret Pep 5652 pg/mL (0-450) H 07/18/21 14:35 Total Protein 6.8 g/dL (6.3-8.2) 07/18/21 14:35 Albumin 3.1 g/dL (3.9-5) L 07/18/21 14:35 Albumin/Globulin Ratio 0.8 % 07/18/21 14:35 Smith/IV: Voiding Method Toilet Active Medications - Current Medications Current Medications: Generic Name Dose Route Start Last Admin Trade Name Freq PRN Reason Stop Dose Admin Aspirin 81 mg 07/18/21 22:00 07/18/21 21:51 Aspirin Ec 81 Mg Tab PO 81 mg QDAY [facility] Administration Atorvastatin Calcium 40 mg 07/19/21 22:00 Atorvastatin 40 Mg Tab PO QHS [facility] Bumetanide 1 mg 07/19/21 06:00 07/19/21 07:29 Bumetanide 1 Mg/4 Ml Inj IV Not Given BID [facility] Carvedilol 3.125 mg 07/18/21 22:00 07/18/21 21:43 Carvedilol 3.125 Mg Tab PO Not Given BID [facility] Folic Acid 1 mg 07/19/21 10:00 Folic Acid 1 Mg Tab PO QDAY [facility] Glipizide 5 mg 07/19/21 08:00 Glipizide 5 Mg Tab PO BIDDIAB [facility] Hydromorphone HCl 0.5 mg 07/19/21 00:55 07/19/21 01:40 Hydromorphone 1 Mg/1 Ml Inj IV 0.5 mg Q3H PRN Administration Pain , Severe (7-10) Lisinopril 10 mg 07/18/21 22:00 07/18/21 21:50 Lisinopril 10 Mg Tab PO Not Given QDAY [facility] Metformin HCl 500 mg 07/19/21 08:00 Metformin 500 Mg Tab PO BIDDIAB [facility] Spironolactone 25 mg 07/18/21 22:00 07/18/21 21:59 Spironolactone 25 Mg Tab PO Not Given QDAY [facility] Thiamine HCl 100 mg 07/18/21 22:00 07/18/21 21:51 Thiamine 100 Mg Tab PO 100 mg QDAY [facility] Administration
--- NOTE | 2021-07-19 10:41 | Progress Note ---
Assessment and Plan HFrEF HTN * EKG Paced 105. No acute ischemic changes * BNP noted to be elevated, BLE edema 2-3+, Breath sound clear bilaterally * Echo 12/14/20- EF 15-20%, LV severely dilated, RV systolic function mod reduced, RV slightly dilated, mild TR, RVSP 44mmHg * Cardiac cath 06/2019: showed normal coronaries, EF 15-20% * Optimize volume control: Initiate Bumex 1 mg IV BID, Aldactone 25 mg daily. Maintain strict I/O's * GDMT: Aspirin, coreg 12.5mg PO BID, Lisinopril 10mg PO QD, atorvastatin 40mg QHS DIANN on CPAP * Recommend CPAP Plan: Continue diuresis and home medications. Troponins negativex2. Will continue to follow Patient seen in conjunction with Dr Fisher who agrees with this assessment and plan of care - Patient Problems (1) Acute HFrEF (heart failure with reduced ejection fraction) Current Visit: No Status: Acute (2) Hyperlipidemia Current Visit: No Status: Acute Qualifiers: Hyperlipidemia type: mixed hyperlipidemia Qualified Code(s): E78.2 - Mixed hyperlipidemia (3) Cardiomyopathy Current Visit: No Status: Chronic (4) Diabetes Current Visit: No Status: Chronic (5) Hypertension Current Visit: No Status: Chronic Qualifiers: Hypertension type: essential hypertension (6) ICD (implantable cardioverter-defibrillator) in place Current Visit: No Status: Chronic (7) Obesity (BMI 30.0-34.9) Current Visit: No Status: Chronic (8) Sleep apnea Current Visit: No Status: Suspected Subjective Date of service: 07/19/21 Principal diagnosis: Acute on chronic HFrEF Interval history: Patient sitting in bed. Reports feeling tired No events on monitor Objective Vital Signs Temp Pulse Resp BP Pulse Ox 07/19/21 07:27 97.3 F L 105 H 18 82/57 99 07/19/21 05:42 18 98 07/19/21 03:49 97.4 F L 104 H 16 96/65 94 07/19/21 02:51 106 H 07/19/21 01:30 98 H 34 H 88/53 07/19/21 01:20 101 H 30 H 88/53 07/19/21 01:10 102 H 37 H 148/93 07/19/21 01:00 108 H 98/78 07/19/21 00:50 103 H 22 98/78 98 07/19/21 00:40 102 H 18 104/79 98 07/19/21 00:36 105 H 24 104/79 96 07/19/21 00:16 106 H 36 H 102/69 99 07/19/21 00:10 104 H 31 H 102/69 98 07/19/21 00:06 103 H 31 H 102/69 99 07/19/21 00:00 105 H 35 H 106/75 99 07/18/21 23:56 119 H 38 H 106/75 99 07/18/21 23:16 104 H 30 H 103/42 97 07/18/21 23:10 104 H 43 H 103/42 98 07/18/21 23:06 104 H 23 103/42 98 07/18/21 23:00 102 H 20 125/56 98 07/18/21 22:56 15 125/56 99 07/18/21 22:50 108 H 31 H 125/56 98 07/18/21 22:46 102 H 28 H 101/66 98 07/18/21 22:44 102 H 34 H 101/66 97 07/18/21 22:40 101 H 29 H 101/66 97 07/18/21 22:35 102 H 28 H 101/66 99 07/18/21 22:30 102 H 28 H 109/64 98 07/18/21 22:26 109 H 22 109/64 98 07/18/21 22:20 105 H 27 H 109/64 99 07/18/21 22:16 109 H 16 115/79 99 07/18/21 22:10 103 H 23 115/79 100 07/18/21 22:06 104 H 29 H 115/79 94 07/18/21 22:00 102 H 21 115/79 85 07/18/21 21:56 103 H 26 H 115/79 98 07/18/21 21:50 103 H 115/79 93 07/18/21 21:46 103 H 107/77 84 07/18/21 21:40 105 H 107/77 94 07/18/21 21:35 105 H 107/77 98 07/18/21 21:30 104 H 117/96 94 07/18/21 21:26 106 H 117/96 87 07/18/21 21:20 103 H 117/96 95 07/18/21 21:16 103 H 19 117/96 96 07/18/21 21:10 100 H 37 H 117/96 93 07/18/21 21:06 103 H 44 H 117/96 99 07/18/21 21:00 107 H 32 H 98/61 97 07/18/21 20:56 107 H 23 98/61 98 07/18/21 20:50 102 H 35 H 98/61 94 07/18/21 20:46 100 H 22 115/54 89 07/18/21 20:40 101 H 28 H 115/54 41 L 07/18/21 20:36 101 H 31 H 115/54 07/18/21 20:30 99 H 28 H 125/101 91 07/18/21 20:26 95 H 31 H 125/101 85 07/18/21 20:20 38 H 125/101 97 07/18/21 20:16 144 H 26 H 88/64 80 L 07/18/21 20:10 52 L 30 H 88/64 07/18/21 20:06 105 H 37 H 88/64 96 07/18/21 20:00 103 H 24 88/64 100 07/18/21 19:56 102 H 26 H 88/64 92 07/18/21 19:50 108 H 31 H 88/64 95 07/18/21 19:46 101 H 27 H 86/59 94 07/18/21 19:40 99 H 34 H 86/59 100 07/18/21 19:36 101 H 34 H 86/59 94 07/18/21 19:30 102 H 32 H 93/57 94 07/18/21 19:26 102 H 42 H 93/57 98 07/18/21 19:20 102 H 30 H 93/57 96 07/18/21 19:16 101 H 31 H 95/69 97 07/18/21 19:10 101 H 34 H 95/69 100 07/18/21 19:06 101 H 25 H 95/69 100 07/18/21 19:00 28 H 87/52 97 07/18/21 18:56 72 29 H 87/52 94 07/18/21 18:50 118 H 33 H 87/52 95 07/18/21 18:46 99 H 33 H 78/38 100 07/18/21 18:40 35 H 78/38 100 07/18/21 18:36 20 78/38 100 07/18/21 18:30 103 H 27 H 95/69 98 07/18/21 18:26 103 H 33 H 95/69 97 07/18/21 18:20 103 H 16 95/69 99 07/18/21 18:16 104 H 76 H 87/64 96 07/18/21 18:10 30 H 87/64 07/18/21 18:05 101 H 38 H 87/64 99 07/18/21 18:00 102 H 28 H 80/59 07/18/21 17:56 112 H 37 H 76/52 97 07/18/21 17:50 20 88/55 95 07/18/21 17:45 120 H 18 73/48 97 07/18/21 17:40 28 H 186/155 97 07/18/21 17:36 101 H 34 H 186/155 07/18/21 17:30 104 H 22 186/155 96 07/18/21 17:26 102 H 17 186/155 97 07/18/21 17:20 16 186/155 77 L 07/18/21 17:16 110 H 25 H 186/155 98 07/18/21 17:10 107 H 20 186/155 94 07/18/21 17:06 27 H 186/155 96 07/18/21 17:00 106 H 24 186/155 100 07/18/21 16:56 78 32 H 186/155 97 07/18/21 16:50 104 H 37 H 186/155 99 07/18/21 16:46 144 H 26 H 186/155 07/18/21 16:40 109 H 22 186/155 94 07/18/21 16:36 107 H 21 186/155 99 07/18/21 16:30 106 H 29 H 186/155 97 07/18/21 16:26 106 H 21 186/155 97 07/18/21 16:20 107 H 20 186/155 100 07/18/21 16:16 108 H 32 H 186/155 98 07/18/21 16:10 108 H 23 186/155 97 07/18/21 16:06 106 H 20 186/155 94 07/18/21 16:00 106 H 20 186/155 79 L 07/18/21 15:56 106 H 30 H 186/155 86 07/18/21 15:50 103 H 28 H 186/155 95 07/18/21 15:46 106 H 21 186/155 68 L 07/18/21 15:40 103 H 19 186/155 100 07/18/21 15:36 103 H 24 186/155 95 07/18/21 15:30 104 H 25 H 186/155 97 07/18/21 15:26 103 H 27 H 186/155 96 07/18/21 15:20 105 H 26 H 186/155 87 07/18/21 15:16 105 H 21 186/155 94 07/18/21 15:10 103 H 22 186/155 98 07/18/21 15:06 105 H 23 186/155 97 07/18/21 15:00 106 H 29 H 186/155 99 07/18/21 14:56 105 H 21 186/155 96 07/18/21 14:50 106 H 15 186/155 97 07/18/21 14:46 109 H 20 186/155 95 07/18/21 14:38 96 07/18/21 14:30 104 H 186/155 93 07/18/21 14:16 104 H 23 93 07/18/21 14:00 109 H 25 H 186/155 94 07/18/21 13:52 98 07/18/21 13:16 97.9 F - Physical Examination General: No Apparent Distress HEENT: Positive: PERRL Neck: Positive: trachea midline Cardiac: Positive: Reg Rate and Rhythm Lungs: Positive: Normal Breath Sounds Neuro: Positive: Grossly Intact Abdomen: Positive: Soft, Active Bowel Sounds Skin: Negative: Rash, Suspicious Lesions, Ulceration Extremities: Present: upper extr. pulses, lower extr. pulses, +3 Edema - Labs and Meds Cardiac Enzymes 07/18/21 Range/Units 14:35 AST 81 H (5-40) units/L Coagulation 07/18/21 Range/Units 14:35 PT 16.2 H (12.2-14.9) Sec. INR 1.24 H (0.87-1.13) CBC 07/18/21 Range/Units 14:35 WBC 7.4 (4.5-11.0) K/mm3 RBC 4.10 (3.65-5.03) M/mm3 Hgb 13.5 (11.8-15.2) gm/dl Hct 40.7 (35.5-45.6) % Plt Count 124 L (140-440) K/mm3 Lymph # (Auto) 1.3 (1.2-5.4) K/mm3 [place] # (Auto) 0.6 (0.0-0.8) K/mm3 Eos # (Auto) 0.0 (0.0-0.4) K/mm3 Baso # (Auto) 0.0 (0.0-0.1) K/mm3 Comprehensive Metabolic Panel 07/18/21 07/19/21 Range/Units 14:35 04:09 Sodium 133 L 133 L (137-145) mmol/L Potassium 4.2 4.1 (3.6-5.0) mmol/L Chloride 96.8 L 97.2 L (98-107) mmol/L Carbon Dioxide 27 26 (22-30) mmol/L BUN 34 H 39 H (9-20) mg/dL Creatinine 1.4 H 1.3 (0.8-1.3) mg/dL Glucose 91 192 H (75-100) mg/dL Calcium 8.5 8.3 L (8.4-10.2) mg/dL AST 81 H (5-40) units/L ALT 117 H (7-56) units/L Alkaline Phosphatase 109 (35-129) units/L Total Protein 6.8 (6.3-8.2) g/dL Albumin 3.1 L (3.9-5) g/dL - Imaging and Cardiology EKG: report reviewed (Pacemaker rhythm, heart rate of 98) Echo: report reviewed Cardiac cath: report reviewed - Telemetry EKG Rhythm: Paced Pacemaker: ventricular pacing w/capt
[2021-07-19] MEDS: glipiZIDE 5 MG TAB PO SCH ×2 (13:57→19:58)
[2021-07-19] MEDS: metFORMIN 500 MG TAB PO SCH ×2 (13:57→19:58)
[2021-07-19] MEDS: SPIRONOLACTONE 25 MG TAB PO SCH (13:57)
[2021-07-19] MEDS: LISINOPRIL 10 MG TAB PO SCH (13:58)
[2021-07-19] MEDS: carvediloL 3.125 MG TAB PO SCH ×2 (13:58→22:07)
[2021-07-19] MEDS: FOLIC ACID 1 MG TAB PO SCH (13:58)
[2021-07-19] MEDS: THIAMINE 100 MG TAB PO SCH (13:58)
[2021-07-19] MEDS: ASPIRIN EC 81 MG TAB PO SCH (14:18)
[2021-07-20 05:56] LABS: Basophils % (Auto) 0.4 % (0.0-1.8); Eosinophils % (Auto) 0.6 % (0.0-4.3); Hematocrit 38.5 % (35.5-45.6); Lymphocytes # (Auto) 1.7 K/mm3 (1.2-5.4); Mean Corpuscular HGB Conc 34 % (32-34); Mean Corpuscular Volume 98 fl (84-94); Monocytes # (Auto) 0.8 K/mm3 (0.0-0.8); Monocytes % (Auto) 10.4 % (0.0-7.3); Platelet Count 119 K/mm3 (140-440); Red Blood Count 3.92 M/mm3 (3.65-5.03); Red Cell Distribution Width 14.2 % (13.2-15.2)
[2021-07-20 06:18] LABS: Calcium 8.3 mg/dL (8.4-10.2); Chol/HDL Ratio 4.89 %
--- NOTE | 2021-07-20 09:43 | Progress Note ---
Assessment and Plan Assessment and plan: (1) Acute exacerbation of CHF (congestive heart failure) Patient will be diuresed with IV Lasix 40 mg every 12 Echocardiogram for ejection fraction Cardiology consult requested Daily intake and output Daily weights Patient on Bumex before (2) Hypertensive emergency Hydralazine added at 50 mg every 8 hours Hydralazine IV as needed every 3 hours (3) DAVID (acute kidney injury) Secondary to vasomotor nephropathy Trend the creatinine (4) T2DM (type 2 diabetes mellitus) Continue oral hypoglycemics and coverage for now Check hemoglobin A1c (5) Hyperlipidemia Continue statins (6) Hyponatremia Mild May correct with dialysis (7) ICD (implantable cardioverter-defibrillator) in place Patient is due for LifeVest (8) Malnutrition Dietary supplements initiated (9) DVT prophylaxis On heparin GI prophylaxis 07/19/2021. Continue diuresis per cardiology recommendations. Follow-up troponins. Continue GDMT with aspirin, Coreg 12.5 mg p.o. twice daily, lisinopril 10 mg p.o. daily and atorvastatin 40 mg nightly. Continue Bumex 1 mg IV twice daily and Aldactone 25 mg daily. Continue Accu-Cheks and sliding scale insulin 07/20/2021. Continue diuresis per cardiology recommendations. Troponins have remained negative since hospitalization. Continue GDMT with aspirin, Coreg 12.5 mg p.o. twice daily, lisinopril 10 mg p.o. daily and atorvastatin 40 mg nightly. Continue Bumex 1 mg IV twice daily and Aldactone 25 mg daily. Continue Accu- Cheks and sliding scale insulin. Anticipate discharge in next 1 to 2 days History Interval history: No new issues overnight. Hospitalist Physical - Constitutional Vitals: Temp Pulse Resp BP Pulse Ox 97.7 F 103 H 18 119/94 97 07/20/21 08:54 07/20/21 08:54 07/20/21 08:54 07/20/21 08:54 07/20/21 08:54 General appearance: Present: no acute distress, well-nourished - EENT Eyes: Present: PERRL, EOM intact ENT: hearing intact, clear oral mucosa, dentition normal - Neck Neck: Present: supple, normal ROM - Respiratory Respiratory effort: normal Respiratory: bilateral: CTA - Cardiovascular Rhythm: regular Heart Sounds: Present: S1 & S2. Absent: gallop, rub - Extremities Extremities: no ischemia, No edema, Full ROM - Abdominal General gastrointestinal: soft, non-tender, non-distended, normal bowel sounds - Integumentary Integumentary: Present: clear, warm, dry - Neurologic Neurologic: CNII-XII intact, moves all extremities HEART Score - HEART Score EKG: Non-specific Age: < 45 Risk factors: > 3 risk factors or hx of atherosclerotic disease Troponin: Troponin T < 0.010 ng/mL (0.00-0.029) 07/18/21 20:03 Troponin: < normal limit - Critical Actions Critical Actions: 4-6 pts:12-16.6% risk of adverse cardiac event. Should be admitted Results - Labs CBC & Chem 7: 07/20/21 05:16 07/20/21 05:16 Labs: Laboratory Last Values WBC 7.6 K/mm3 (4.5-11.0) 07/20/21 05:16 RBC 3.92 M/mm3 (3.65-5.03) 07/20/21 05:16 Hgb 13.0 gm/dl (11.8-15.2) 07/20/21 05:16 Hct 38.5 % (35.5-45.6) 07/20/21 05:16 MCV 98 fl (84-94) H 07/20/21 05:16 MCH 33 pg (28-32) H 07/20/21 05:16 MCHC 34 % (32-34) 07/20/21 05:16 RDW 14.2 % (13.2-15.2) 07/20/21 05:16 Plt Count 119 K/mm3 (140-440) L 07/20/21 05:16 Lymph % (Auto) 22.0 % (13.4-35.0) 07/20/21 05:16 [place] % (Auto) 10.4 % (0.0-7.3) H 07/20/21 05:16 Eos % (Auto) 0.6 % (0.0-4.3) 07/20/21 05:16 Baso % (Auto) 0.4 % (0.0-1.8) 07/20/21 05:16 Lymph # (Auto) 1.7 K/mm3 (1.2-5.4) 07/20/21 05:16 [place] # (Auto) 0.8 K/mm3 (0.0-0.8) 07/20/21 05:16 Eos # (Auto) 0.0 K/mm3 (0.0-0.4) 07/20/21 05:16 Baso # (Auto) 0.0 K/mm3 (0.0-0.1) 07/20/21 05:16 Seg Neutrophils % 66.6 % (40.0-70.0) 07/20/21 05:16 Seg Neutrophils # 5.1 K/mm3 (1.8-7.7) 07/20/21 05:16 PT 16.2 Sec. (12.2-14.9) H 07/18/21 14:35 INR 1.24 (0.87-1.13) H 07/18/21 14:35 Sodium 135 mmol/L (137-145) L 07/20/21 05:16 Potassium 4.0 mmol/L (3.6-5.0) 07/20/21 05:16 Chloride 96.8 mmol/L (98-107) L 07/20/21 05:16 Carbon Dioxide 27 mmol/L (22-30) 07/20/21 05:16 Anion Gap 15 mmol/L 07/20/21 05:16 BUN 37 mg/dL (9-20) H 07/20/21 05:16 Creatinine 1.6 mg/dL (0.8-1.3) H 07/20/21 05:16 Estimated GFR 58 ml/min 07/20/21 05:16 BUN/Creatinine Ratio 23 % 07/20/21 05:16 Glucose 172 mg/dL (75-100) H 07/20/21 05:16 POC Glucose 148 mg/dL (70-105) H 07/20/21 07:57 Calcium 8.3 mg/dL (8.4-10.2) L 07/20/21 05:16 Total Bilirubin 1.20 mg/dL (0.1-1.2) 07/18/21 14:35 AST 81 units/L (5-40) H 07/18/21 14:35 ALT 117 units/L (7-56) H 07/18/21 14:35 Alkaline Phosphatase 109 units/L (35-129) 07/18/21 14:35 Troponin T < 0.010 ng/mL (0.00-0.029) 07/18/21 20:03 NT-Pro-B Natriuret Pep 5652 pg/mL (0-450) H 07/18/21 14:35 Total Protein 6.8 g/dL (6.3-8.2) 07/18/21 14:35 Albumin 3.1 g/dL (3.9-5) L 07/18/21 14:35 Albumin/Globulin Ratio 0.8 % 07/18/21 14:35 Triglycerides 62 mg/dL (2-149) 07/20/21 05:16 Cholesterol 93 mg/dL (50-199) 07/20/21 05:16 LDL Cholesterol Direct 66 mg/dL (50-130) 07/20/21 05:16 HDL Cholesterol 19 mg/dL (40-59) L 07/20/21 05:16 Cholesterol/HDL Ratio 4.89 % 07/20/21 05:16 Smith/IV: Voiding Method Toilet Active Medications - Current Medications Current Medications: Generic Name Dose Route Start Last Admin Trade Name Freq PRN Reason Stop Dose Admin Aspirin 81 mg 07/18/21 22:00 07/19/21 14:18 Aspirin Ec 81 Mg Tab PO 81 mg QDAY IJEOMA Administration Atorvastatin Calcium 40 mg 07/19/21 22:00 07/19/21 22:07 Atorvastatin 40 Mg Tab PO 40 mg QHS IJEOMA Administration Bumetanide 1 mg 07/19/21 06:00 07/19/21 22:07 Bumetanide 1 Mg/4 Ml Inj IV 1 mg BID IJEOMA Administration Carvedilol 3.125 mg 07/18/21 22:00 07/19/21 22:07 Carvedilol 3.125 Mg Tab PO 3.125 mg BID IJEOMA Administration Folic Acid 1 mg 07/19/21 10:00 07/19/21 13:58 Folic Acid 1 Mg Tab PO 1 mg QDAY IJEOMA Administration Glipizide 5 mg 07/19/21 08:00 07/19/21 19:58 Glipizide 5 Mg Tab PO 5 mg BIDDIAB IJEOMA Administration Hydromorphone HCl 0.5 mg 07/19/21 00:55 07/19/21 01:40 Hydromorphone 1 Mg/1 Ml Inj IV 0.5 mg Q3H PRN Administration Pain , Severe (7-10) Lisinopril 10 mg 07/18/21 22:00 07/19/21 13:58 Lisinopril 10 Mg Tab PO 10 mg QDAY IJEOMA Administration Metformin HCl 500 mg 07/19/21 08:00 07/19/21 19:58 Metformin 500 Mg Tab PO 500 mg BIDDIAB IJEOMA Administration Spironolactone 25 mg 07/18/21 22:00 07/19/21 13:57 Spironolactone 25 Mg Tab PO 25 mg QDAY IJEOMA Administration Thiamine HCl 100 mg 07/18/21 22:00 07/19/21 13:58 Thiamine 100 Mg Tab PO 100 mg QDAY IJEOMA Administration
[2021-07-20] MEDS: carvediloL 3.125 MG TAB PO SCH (10:07)
[2021-07-20] MEDS: SPIRONOLACTONE 25 MG TAB PO SCH (10:07)
[2021-07-20] MEDS: ASPIRIN EC 81 MG TAB PO SCH (10:07)
[2021-07-20] MEDS: LISINOPRIL 10 MG TAB PO SCH (10:08)
[2021-07-20] MEDS: THIAMINE 100 MG TAB PO SCH (10:08)
[2021-07-20] MEDS: metFORMIN 500 MG TAB PO SCH ×2 (10:08→17:27)
[2021-07-20] MEDS: glipiZIDE 5 MG TAB PO SCH ×2 (10:08→17:27)
[2021-07-20] MEDS: FOLIC ACID 1 MG TAB PO SCH (10:08)
[2021-07-20] MEDS: BUMETANIDE 1 MG/4 ML INJ IV SCH ×2 (11:30→21:46)
[2021-07-20] MEDS ORDERED: carvediloL 3.125 MG TAB PO SCH (14:16)
--- NOTE | 2021-07-20 14:19 | Progress Note ---
Assessment and Plan HFrEF HTN * EKG Paced 105. No acute ischemic changes * BNP noted to be elevated, BLE edema 2-3+, Breath sound clear bilaterally * Echo 12/14/20- EF 15-20%, LV severely dilated, RV systolic function mod reduced, RV slightly dilated, mild TR, RVSP 44mmHg * Cardiac cath 06/2019: showed normal coronaries, EF 15-20% * Optimize volume control: Continue Bumex 1 mg IV BID, Aldactone 25 mg daily. Maintain strict I/O's * GDMT: Aspirin, coreg 12.5mg PO BID, Lisinopril 10mg PO QD, DIANN on CPAP * Recommend CPAP Plan: Continue diuresis and home medications. Will continue to follow Patient seen in conjunction with Dr Fisher who agrees with this assessment and plan of care - Patient Problems (1) Acute HFrEF (heart failure with reduced ejection fraction) Current Visit: No Status: Acute (2) Hyperlipidemia Current Visit: No Status: Acute Qualifiers: Hyperlipidemia type: mixed hyperlipidemia Qualified Code(s): E78.2 - Mixed hyperlipidemia (3) Cardiomyopathy Current Visit: No Status: Chronic (4) Diabetes Current Visit: No Status: Chronic (5) Hypertension Current Visit: No Status: Chronic Qualifiers: Hypertension type: essential hypertension (6) ICD (implantable cardioverter-defibrillator) in place Current Visit: No Status: Chronic (7) Obesity (BMI 30.0-34.9) Current Visit: No Status: Chronic (8) Sleep apnea Current Visit: No Status: Suspected Subjective Date of service: 07/20/21 Principal diagnosis: Acute on chronic HFrEF Interval history: Patient sitting in chair. Reports feeling much better No events on monitor Objective Vital Signs Temp Pulse Resp BP BP Pulse Ox 07/20/21 10:07 103 H 119/94 07/20/21 08:54 97.7 F 103 H 18 119/94 97 07/20/21 04:00 97.7 F 100 H 16 98/70 95 07/20/21 03:53 98.0 F 136 H 28 H 190/124 93 07/20/21 03:46 97.7 F 105 H 16 98/70 95 07/19/21 23:33 97.4 F L 107 H 18 114/81 94 07/19/21 20:35 98 07/19/21 20:15 111 H 07/19/21 19:34 97.9 F 111 H 19 121/80 96 07/19/21 18:00 100 H 18 98 07/19/21 16:14 97.3 F L 107 H 18 97/67 99 - Physical Examination General: No Apparent Distress HEENT: Positive: PERRL Neck: Positive: trachea midline Cardiac: Positive: Reg Rate and Rhythm Lungs: Positive: Normal Breath Sounds Neuro: Positive: Grossly Intact Abdomen: Positive: Soft, Active Bowel Sounds Skin: Negative: Rash, Suspicious Lesions, Ulceration Extremities: Present: upper extr. pulses, lower extr. pulses, +2 Edema - Labs and Meds Lipids 07/20/21 Range/Units 05:16 Triglycerides 62 (2-149) mg/dL Cholesterol 93 (50-199) mg/dL HDL Cholesterol 19 L (40-59) mg/dL Cholesterol/HDL Ratio 4.89 % CBC 07/20/21 Range/Units 05:16 WBC 7.6 (4.5-11.0) K/mm3 RBC 3.92 (3.65-5.03) M/mm3 Hgb 13.0 (11.8-15.2) gm/dl Hct 38.5 (35.5-45.6) % Plt Count 119 L (140-440) K/mm3 Lymph # (Auto) 1.7 (1.2-5.4) K/mm3 [place] # (Auto) 0.8 (0.0-0.8) K/mm3 Eos # (Auto) 0.0 (0.0-0.4) K/mm3 Baso # (Auto) 0.0 (0.0-0.1) K/mm3 Comprehensive Metabolic Panel 07/20/21 Range/Units 05:16 Sodium 135 L (137-145) mmol/L Potassium 4.0 (3.6-5.0) mmol/L Chloride 96.8 L (98-107) mmol/L Carbon Dioxide 27 (22-30) mmol/L BUN 37 H (9-20) mg/dL Creatinine 1.6 H (0.8-1.3) mg/dL Glucose 172 H (75-100) mg/dL Calcium 8.3 L (8.4-10.2) mg/dL - Imaging and Cardiology EKG: report reviewed (Pacemaker rhythm, heart rate of 98) Echo: report reviewed Cardiac cath: report reviewed - Telemetry EKG Rhythm: Paced Pacemaker: ventricular pacing w/capt
[2021-07-20] MEDS: carvediloL 12.5 MG TAB PO SCH (21:46)
[2021-07-21 06:53] LABS: BUN/Creatinine Ratio 26; Blood Urea Nitrogen 36 mg/dL (9-20); Calcium 8.4 mg/dL (8.4-10.2); Hemolysis Index 11
--- NOTE | 2021-07-21 08:11 | Discharge Summary ---
Providers - Providers Date of Admission: 07/19/21 16:03 Date of discharge: 07/21/21 Attending physician: BRYAN ARIAS 07/19/21 09:42 Consult to Physician [CONS] Routine Comment: Consulting Provider: YADIRA MCCLURE Physician Instructions: Reason For Exam: CHF Primary care physician: POLICE INSPECTOR Hospitalization Reason for admission: CHF Condition: Stable Hospital course: This patient is a 40 y/o male with PMHx of HFrEF, dilated cardiomyopathy EF 15 to 20%, pacemaker in situ, hypertension, hyperlipidemia, diabetes, DIANN who presented with a complaint of bilateral lower extremity edema x 2 days. He also reported inability to walk more than a few feet or climb stairs due to the am ount of fluid in his lower extremity. He reports that at baseline he is able to walk without difficulties but does get SOB if going up stairs. He also reports SOB, SCHMIDT, a dry cough, fatigue, and orthopnea. He stated he has been noncompliant with volume restriction and drinking lots of fluid/ice. The patient was admitted with diagnosis of acute heart failure with reduced ejection fraction, dilated cardiomyopathy, pulmonary hypertension, hypertension and DIANN.. Patient had a previous echocardiogram November 2020 that showed an EF of 15 and 20% with LV severely dilated, RV systolic function mod reduced, RV slightly dilated, mild TR, RVSP 44mmHg. The patient was seen by cardiology in consultation and underwent GDMT with Aspirin, coreg 12.5mg PO BID, Lisinopril 10mg PO QD, atorvastatin 40mg QHS. The patient also received appropriate diuresis with IV Bumex and Aldactone daily. Patient has significant improvement throughout hospitalization. Patient returned to his baseline fluid status and was felt to have received maximal hospital benefit. Therefore, patient will be discharged home with cardiology follow-up as an outpatient. Dedicated discharge time 35 minutes Disposition: 01 HOME / SELF CARE / HOMELESS Final Discharge Diagnosis (Prints w/discharge instructions): Acute systolic heart failure exacerbation, dilated cardiomyopathy, pulmonary hypertension, hypertension, DIANN Core Measure Documentation - Palliative Care Palliative Care/ Comfort Measures: Not Applicable - Core Measures Any of the following diagnoses?: heart failure - Heart Failure Discharge Requirements CONSTANTINO/ARB for LVSD if EF <40%: Yes Beta carlos at discharge: Yes Exam - Constitutional Vitals: Temp Pulse Resp BP Pulse Ox 97.7 F 92 H 20 85/60 98 07/21/21 03:58 07/21/21 03:58 07/21/21 03:58 07/21/21 03:58 07/21/21 03:58 General appearance: Present: no acute distress, well-nourished - EENT Eyes: Present: PERRL ENT: hearing intact, clear oral mucosa - Neck Neck: Present: supple, normal ROM - Respiratory Respiratory effort: normal Respiratory: bilateral: CTA - Cardiovascular Heart Sounds: Present: S1 & S2. Absent: rub, click - Extremities Extremities: pulses symmetrical, No edema Peripheral Pulses: within normal limits - Abdominal General gastrointestinal: Present: soft, non-tender, non-distended, normal bowel sounds Male genitourinary: Present: normal - Integumentary Integumentary: Present: clear, warm, dry - Musculoskeletal Musculoskeletal: gait normal, strength equal bilaterally - Psychiatric Psychiatric: appropriate mood/affect, intact judgment & insight - Neurologic Neurologic: CNII-XII intact, moves all extremities Plan Activity: advance as tolerated Weight Bearing Status: Non-Weight Bearing Diet: low fat, low cholesterol, low salt Follow up with: PRIMARY CARE,MD [Primary Care Provider] - 7 Days Prescriptions: Spironolactone [Aldactone] 25 mg PO QDAY #30 tablet Bumetanide [Bumex 1 mg tab] 1 mg PO 0600,1800 #60 tablet carvediloL [Coreg] 12.5 mg PO BID #60 tablet Folic Acid [Folvite] 1 mg PO QDAY #30 tablet metFORMIN [Glucophage] 500 mg PO BID #60 tablet glipiZIDE [Glucotrol] 5 mg PO BID #60 tablet Aspirin EC [Halfprin EC] 81 mg PO QDAY #30 tablet. AtorvaSTATin [Lipitor] 40 mg PO QHS #60 tablet Thiamine [Vitamin B-1] 100 mg PO QDAY #60 tablet lisinopriL [Zestril TAB] 10 mg PO QDAY #30 tablet
[2021-07-21 08:33] VITALS: BP 83/57
[2021-07-21] MEDS: BUMETANIDE 1 MG/4 ML INJ IV SCH (09:20)
[2021-07-21] MEDS: carvediloL 12.5 MG TAB PO SCH (09:20)
[2021-07-21] MEDS: glipiZIDE 5 MG TAB PO SCH (09:21)
[2021-07-21] MEDS: metFORMIN 500 MG TAB PO SCH (09:21)
[2021-07-21] MEDS: LISINOPRIL 10 MG TAB PO SCH (09:21)
[2021-07-21] MEDS: SPIRONOLACTONE 25 MG TAB PO SCH (09:21)
[2021-07-21] MEDS: FOLIC ACID 1 MG TAB PO SCH (09:21)
[2021-07-21] MEDS: THIAMINE 100 MG TAB PO SCH (09:21)
[2021-07-21] MEDS: ASPIRIN EC 81 MG TAB PO SCH (09:21)
--- NOTE | 2021-07-21 15:32 | Progress Note ---
Assessment and Plan May transition to PO Bumex. Continue 1mg BID for now. Will recheck BMP as an outpatient in 1 week. Continue also Aldactone 25mg daily, Coreg 12.5mg BID, and Lisinopril 10mg daily. Follow-up with Dr. Fisher in 2 weeks ([phone]). Pt seen in conjunction with Dr. Fisher, who agrees with the assesment and plan of care. - Patient Problems (1) Acute on chronic HFrEF (heart failure with reduced ejection fraction) Status: Acute (2) Nonischemic cardiomyopathy Status: Chronic (3) ICD (implantable cardioverter-defibrillator) in place Status: Chronic (4) DAVID (acute kidney injury) Status: Acute (5) DIANN (obstructive sleep apnea) Status: Chronic (6) Hypertension Status: Chronic Qualifiers: Hypertension type: primary hypertension Qualified Code(s): I10 - Essential (primary) hypertension (7) HLD (hyperlipidemia) Status: Chronic Qualifiers: Hyperlipidemia type: mixed hyperlipidemia Qualified Code(s): E78.2 - Mixed hyperlipidemia (8) Diabetes mellitus Status: Chronic Qualifiers: Diabetes mellitus type: type 2 Subjective Date of service: 07/21/21 Principal diagnosis: A/C HFrEF Interval history: States he is feeling better. Wants to go home. Objective Last Vital Signs Temp 97.9 F 07/21/21 08:32 Pulse 76 07/21/21 08:32 Resp 20 07/21/21 08:32 BP 83/57 07/21/21 08:32 Pulse Ox 98 07/21/21 08:32 - Physical Examination General: No Apparent Distress HEENT: Positive: EOMI, Normocephaly Neck: Positive: neck supple, trachea midline. Negative: JVD/HJR Cardiac: Positive: Reg Rate and Rhythm, S1/S2 Lungs: Positive: clear to auscultation Neuro: Positive: Grossly Intact Abdomen: Positive: Soft. Negative: Tender Skin: Negative: Rash Musculoskeletal: No Pain Extremities: Present: upper extr. pulses, lower extr. pulses, +1 Edema - Labs and Meds Comprehensive Metabolic Panel 07/21/21 Range/Units 04:34 Sodium 134 L (137-145) mmol/L Potassium 4.5 (3.6-5.0) mmol/L Chloride 97.1 L (98-107) mmol/L Carbon Dioxide 27 (22-30) mmol/L BUN 36 H (9-20) mg/dL Creatinine 1.4 H (0.8-1.3) mg/dL Glucose 105 H (75-100) mg/dL Calcium 8.4 (8.4-10.2) mg/dL - Imaging and Cardiology EKG: report reviewed, image reviewed Echo: report reviewed Cardiac cath: report reviewed - Telemetry EKG Rhythm: Paced Pacemaker: ventricular pacing w/capt
--- NOTE | 2021-07-25 14:01 | Electrocardiograph Report ---
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
== END 2021-07-21 11:00 | disposition home or self-care (01) | DRG 292 ==
LOC: ED 12:54 → 4A 17:05 → OBSVTOIN 07-19 16:03
PROVIDERS: ADMIT Internal Medicine; ATTEND Hospitalist
DX: I11.0 Hypertensive heart disease with heart failure (principal); I16.1 Hypertensive emergency; E87.1 Hypo-osmolality and hyponatremia; E44.1 Mild protein-calorie malnutrition; N17.9 Acute kidney failure, unspecified; I42.9 Cardiomyopathy, unspecified; Z20.822 Contact with and (suspected) exposure to COVID-19; I25.10 Atherosclerotic heart disease of native coronary artery without angina pectoris; E11.9 Type 2 diabetes mellitus without complications; E78.5 Hyperlipidemia, unspecified; I50.23 Acute on chronic systolic (congestive) heart failure; G47.33 Obstructive sleep apnea (adult) (pediatric); I27.20 Pulmonary hypertension, unspecified; Z95.810 Presence of automatic (implantable) cardiac defibrillator; Z68.35 Body mass index [BMI] 35.0-35.9, adult
CPT/HCPCS: 36415; 71045; 80048; 80053; 80061; 82962; 83880; 84484; 85025; 85610; 93005; G0378; A9270-GY; J1170; J1940

== ENCOUNTER 2021-08-20 07:32 | Inpatient (IN) | payer SELFPAY ==
[2021-08-20 08:17] LABS: Basophils % (Auto) 0.3 % (0.0-1.8); Eosinophils % (Auto) 0.1 % (0.0-4.3); Hematocrit 41.9 % (35.5-45.6); Hemoglobin 13.9 gm/dl (11.8-15.2); Lymphocytes # (Auto) 1.4 K/mm3 (1.2-5.4); Lymphocytes % (Auto) 18.9 % (13.4-35.0); Mean Corpuscular HGB Conc 33 % (32-34); Mean Corpuscular Volume 96 fl (84-94); Monocytes # (Auto) 0.5 K/mm3 (0.0-0.8); Platelet Count 169 K/mm3 (140-440); Red Blood Count 4.37 M/mm3 (3.65-5.03); Red Cell Distribution Width 14.6 % (13.2-15.2)
[2021-08-20 08:29] LABS: INR 1.25 (0.87-1.13)
--- NOTE | 2021-08-20 08:29 | XRay Report ---
CHEST 1 VIEW 08/20/2021 7:58 AM INDICATION / CLINICAL INFORMATION: Dyspnea. COMPARISON: 07/18/2021 FINDINGS: SUPPORT DEVICES: None. HEART / MEDIASTINUM: There is enlargement of the cardiac silhouette. AICD is again noted. LUNGS / PLEURA: No significant pulmonary or pleural abnormality. No pneumothorax. ADDITIONAL FINDINGS: No significant additional findings. IMPRESSION: 1. No significant change. There is enlargement of the cardiac silhouette. Signer Name: Edi Carroll MD Signed: 08/20/2021 8:24 AM Workstation Name: [id number]
[2021-08-20 08:33] LABS: Albumin 3.5 g/dL (3.9-5); Calcium 9.2 mg/dL (8.4-10.2)
[2021-08-20] MEDS ORDERED: BUMETANIDE 1 MG/4 ML INJ IV ONE (08:50)
--- NOTE | 2021-08-20 08:51 | Emergency Department Report ---
ED Shortness of Breath HPI - General Chief Complaint: Dyspnea/Respdistress Stated Complaint: fluid in body Time Seen by Provider: 08/20/21 07:47 Source: patient Mode of arrival: Ambulatory Limitations: No Limitations - History of Present Illness Initial Comments: 40 y/o male with PMHx of HFrEF, dilated cardiomyopathy EF 15 to 20%, pacemaker in situ, hypertension, hyperlipidemia, diabetes, and DIANN presents to the hospital with complaints of worsening edema, abdominal distention, shortness of breath, and 40 pound weight gain x1 month. Patient was admitted here in June for CHF exacerbation. He has been compliant with his Bumex and Aldactone however has been out of his carvedilol for the past 3 weeks. Patient states he has been noncompliant with his recommended 1 L daily fluid restriction. He also thinks he has been ingesting too much salt. Patient complains of frequent coughing and wheezing with cough. Denies fever or chest pain. Patient was scheduled to see Dr. Fisher as outpatient on the first - Related Data Previous Rx's Medication Instructions Recorded Last Taken Type AtorvaSTATin [Lipitor] 40 mg PO QHS #60 tablet 07/21/21 Unknown Rx Bumetanide [Bumex 1 mg tab] 1 mg PO 0600,1800 #60 tablet 07/21/21 Unknown Rx Folic Acid [Folvite] 1 mg PO QDAY #30 tablet 07/21/21 Unknown Rx Spironolactone [Aldactone] 25 mg PO QDAY #30 tablet 07/21/21 Unknown Rx carvediloL [Coreg] 12.5 mg PO BID #60 tablet 07/21/21 Unknown Rx glipiZIDE [Glucotrol] 5 mg PO BID #60 tablet 07/21/21 Unknown Rx lisinopriL [Zestril TAB] 10 mg PO QDAY #30 tablet 07/21/21 Unknown Rx metFORMIN [Glucophage] 500 mg PO BID #60 tablet 07/21/21 Unknown Rx Allergies Allergy/AdvReac Type Severity Reaction Status Date / Time No Known Allergies Allergy Verified 08/20/21 07:39 ED Review of Systems ROS: Stated complaint: fluid in body Other details as noted in HPI Comment: All other systems reviewed and negative ED Past Medical Hx - Past Medical History Hx Hypertension: Yes Hx Congestive Heart Failure: Yes Hx Diabetes: Yes Hx Liver Disease: No Hx Renal Disease: Yes Hx Asthma: No Hx COPD: No Additional medical history: SLEEP APNEA. high cholestrol - Surgical History Hx Internal Defibrillator: Yes Additional Surgical History: cardiac stents - Social History Smoking Status: Never Smoker - Medications Home Medications: Home Medications Medication Instructions Recorded Confirmed Last Taken Type AtorvaSTATin [Lipitor] 40 mg PO QHS #60 tablet 07/21/21 08/20/21 Unknown Rx Bumetanide [Bumex 1 mg tab] 1 mg PO 0600,1800 #60 tablet 07/21/21 08/20/21 Unknown Rx Folic Acid [Folvite] 1 mg PO QDAY #30 tablet 07/21/21 08/20/21 Unknown Rx Spironolactone [Aldactone] 25 mg PO QDAY #30 tablet 07/21/21 08/20/21 Unknown Rx carvediloL [Coreg] 12.5 mg PO BID #60 tablet 07/21/21 08/20/21 Unknown Rx glipiZIDE [Glucotrol] 5 mg PO BID #60 tablet 07/21/21 08/20/21 Unknown Rx lisinopriL [Zestril TAB] 10 mg PO QDAY #30 tablet 07/21/21 08/20/21 Unknown Rx metFORMIN [Glucophage] 500 mg PO BID #60 tablet 07/21/21 08/20/21 Unknown Rx ED Physical Exam - General Limitations: No Limitations - Other Other exam information: General: No acute distress Head: Atraumatic Eyes: normal appearance ENT: Moist mucous membranes Neck: Normal appearance, no midline tenderness Chest: Clear to auscultation bilaterally CV: Tachycardia regular rhythm Abdomen: Soft, normal bowel sounds, nontender, no rebound or guarding. Distended abdomen with lower abdominal wall Back: Normal inspection Extremity: 3+ bilateral lower extremity edema, no calf tenderness or leg asymmetry Neuro: Alert O x 3, no facial asymmetry, speech clear, no gross motor sensory deficit Psych: Appropriate behavior Skin: No rash ED Course Vital Signs 08/20/21 08/20/21 08/20/21 07:37 07:52 08:00 Temperature 97.9 F Pulse Rate 83 116 H Respiratory 20 21 Rate Blood Pressure 195/151 103/64 O2 Sat by Pulse 100 95 97 Oximetry 08/20/21 08:08 Temperature Pulse Rate Respiratory Rate Blood Pressure O2 Sat by Pulse 98 Oximetry - Consultations Consultation #1: 08/20/21 09:[address] 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 Will consult ED Medical Decision Making - Lab Data Result diagrams: 08/20/21 08:03 08/20/21 08:03 Lab Results 08/20/21 08/20/21 08/20/21 Range/Units 08:03 08:03 08:03 WBC 7.4 (4.5-11.0) K/mm3 RBC 4.37 (3.65-5.03) M/mm3 Hgb 13.9 (11.8-15.2) gm/dl Hct 41.9 (35.5-45.6) % MCV 96 H (84-94) fl MCH 32 (28-32) pg MCHC 33 (32-34) % RDW 14.6 (13.2-15.2) % Plt Count 169 (140-440) K/mm3 Lymph % (Auto) 18.9 (13.4-35.0) % Nash % (Auto) 7.0 (0.0-7.3) % Eos % (Auto) 0.1 (0.0-4.3) % Baso % (Auto) 0.3 (0.0-1.8) % Lymph # (Auto) 1.4 (1.2-5.4) K/mm3 Nash # (Auto) 0.5 (0.0-0.8) K/mm3 Eos # (Auto) 0.0 (0.0-0.4) K/mm3 Baso # (Auto) 0.0 (0.0-0.1) K/mm3 Seg Neutrophils % 73.7 H (40.0-70.0) % Seg Neutrophils # 5.4 (1.8-7.7) K/mm3 PT 17.0 H (12.2-14.9) Sec. INR 1.25 H (0.87-1.13) Sodium 131 L (137-145) mmol/L Potassium 4.8 (3.6-5.0) mmol/L Chloride 94.8 L (98-107) mmol/L Carbon Dioxide 25 (22-30) mmol/L Anion Gap 16 mmol/L BUN 37 H (9-20) mg/dL Creatinine 1.6 H (0.8-1.3) mg/dL Estimated GFR 58 ml/min BUN/Creatinine Ratio 23 % Glucose 101 H (75-100) mg/dL Calcium 9.2 (8.4-10.2) mg/dL Total Bilirubin 1.70 H (0.1-1.2) mg/dL AST 34 (5-40) units/L ALT 26 (7-56) units/L Alkaline Phosphatase 66 (35-129) units/L Troponin T (0.00-0.029) ng/mL NT-Pro-B Natriuret Pep (0-450) pg/mL Total Protein 7.7 (6.3-8.2) g/dL Albumin 3.5 L (3.9-5) g/dL Albumin/Globulin Ratio 0.8 % 08/20/ Range/Units 08:03 WBC (4.5-11.0) K/mm3 RBC (3.65-5.03) M/mm3 Hgb (11.8-15.2) gm/dl Hct (35.5-45.6) % MCV (84-94) fl MCH (28-32) pg MCHC (32-34) % RDW (13.2-15.2) % Plt Count (140-440) K/mm3 Lymph % (Auto) (13.4-35.0) % Nash % (Auto) (0.0-7.3) % Eos % (Auto) (0.0-4.3) % Baso % (Auto) (0.0-1.8) % Lymph # (Auto) (1.2-5.4) K/mm3 Nash # (Auto) (0.0-0.8) K/mm3 Eos # (Auto) (0.0-0.4) K/mm3 Baso # (Auto) (0.0-0.1) K/mm3 Seg Neutrophils % (40.0-70.0) % Seg Neutrophils # (1.8-7.7) K/mm3 PT (12.2-14.9) Sec. INR (0.87-1.13) Sodium (137-145) mmol/L Potassium (3.6-5.0) mmol/L Chloride (98-107) mmol/L Carbon Dioxide (22-30) mmol/L Anion Gap mmol/L BUN (9-20) mg/dL Creatinine (0.8-1.3) mg/dL Estimated GFR ml/min BUN/Creatinine Ratio % Glucose (75-100) mg/dL Calcium (8.4-10.2) mg/dL Total Bilirubin (0.1-1.2) mg/dL AST (5-40) units/L ALT (7-56) units/L Alkaline Phosphatase (35-129) units/L Troponin T 0.020 (0.00-0.029) ng/mL NT-Pro-B Natriuret Pep 5807 H (0-450) pg/mL Total Protein (6.3-8.2) g/dL Albumin (3.9-5) g/dL Albumin/Globulin Ratio % - EKG Data -: EKG Interpreted by Wi EKG shows normal: sinus rhythm, intervals (qtc 428), QRS complexes (qrsd 79), ST-T waves (no stemi) - EKG Data When compared to previous EKG there are: no significant change - Radiology Data Radiology results: report reviewed CHEST 1 VIEW 08/20/2021 7:58 AM INDICATION / CLINICAL INFORMATION: Dyspnea. COMPARISON: 07/18/2021 FINDINGS: SUPPORT DEVICES: None. HEART / MEDIASTINUM: There is enlargement of the cardiac silhouette. AICD is again noted. LUNGS / PLEURA: No significant pulmonary or pleural abnormality. No pneumot horax. ADDITIONAL FINDINGS: No significant additional findings. IMPRESSION: 1. No significant change. There is enlargement of the cardiac silhouette - Medical Decision Making 40-year-old male with CHF presents with worsening fluid retention and shortness of breath since discharge 1 month ago. Exacerbation likely related to nonadherence to dietary restrictions and some medication noncompliance. Patient's computer processing scheduler group was consulted to evaluate patient during admission. EKG unchanged. Troponin negative. Bumex and carvedilol provided in the ED. Hospitalist to admit Critical Care Time: No Critical care attestation.: If time is entered above; I have spent that time in minutes in the direct care of this critically ill patient, excluding procedure time. ED Disposition Clinical Impression: Acute exacerbation of CHF (congestive heart failure), ICD (implantable cardioverter-defibrillator) in place, Chronic renal insufficiency, Dietary noncompliance, Uncontrolled hypertension Disposition: 09 ADMITTED INPATIENT Is pt being admited?: Yes Condition: Stable Instructions: Hypertension (ED) Time of Disposition: 09:10 (Dr Ortega)
[2021-08-20] MEDS ORDERED: carvediloL 6.25 MG TAB PO ONE (09:01)
--- NOTE | 2021-08-20 10:58 | Event Note ---
Full consult dictated. Thanks.
--- NOTE | 2021-08-20 12:59 | History and Physical Report ---
History of Present Illness Date of examination: 08/20/21 Date of admission: 08/20/21 09:21 Chief complaint: SOB History of present illness: 40 y/o male with PMHx of HFrEF, dilated cardiomyopathy EF 15 to 20%, pacemaker in situ, hypertension, hyperlipidemia, diabetes, and DIANN presents to the hospital with complaints of worsening edema, abdominal distention, shortness of breath, and 40 pound weight gain x1 month. Patient was admitted here in June for CHF exacerbation. He has been compliant with his Bumex and Aldactone however has been out of his carvedilol for the past 3 weeks. Patient states he has been noncompliant with his recommended 1 L daily fluid restriction. He also thinks he has been ingesting too much salt. Patient complains of frequent coughing and wheezing with cough. Denies fever or chest pain. Patient was scheduled to see Dr. Fisher as outpatient on the first Medications and Allergies Allergies Allergy/AdvReac Type Severity Reaction Status Date / Time No Known Allergies Allergy Verified 08/20/21 07:39 Home Medications Medication Instructions Recorded Confirmed Last Taken Type AtorvaSTATin [Lipitor] 40 mg PO QHS #60 tablet 07/21/21 08/20/21 Unknown Rx Bumetanide [Bumex 1 mg tab] 1 mg PO 0600,1800 #60 tablet 07/21/21 08/20/21 Unknown Rx Folic Acid [Folvite] 1 mg PO QDAY #30 tablet 07/21/21 08/20/21 Unknown Rx Spironolactone [Aldactone] 25 mg PO QDAY #30 tablet 07/21/21 08/20/21 Unknown Rx carvediloL [Coreg] 12.5 mg PO BID #60 tablet 07/21/21 08/20/21 Unknown Rx glipiZIDE [Glucotrol] 5 mg PO BID #60 tablet 07/21/21 08/20/21 Unknown Rx lisinopriL [Zestril TAB] 10 mg PO QDAY #30 tablet 07/21/21 08/20/21 Unknown Rx metFORMIN [Glucophage] 500 mg PO BID #60 tablet 07/21/21 08/20/21 Unknown Rx Active Meds: Active Medications Atorvastatin Calcium (Atorvastatin 40 Mg Tab) 40 mg PO QHS IJEOMA Bumetanide (Bumetanide 1 Mg/4 Ml Inj) 1 mg IV BID@0600,1800 IJEOMA Heparin Sodium (Porcine) (Heparin 5,000 Unit/1 Ml Vial) 5,000 unit SUB-Q Q12HR [facility] Midodrine (Midodrine 5 Mg Tab) 10 mg PO ONCE ONE Stop: 08/20/21 13:01 Last Admin: 08/20/21 12:51 Dose: 10 mg Documented by: Exam - Constitutional Vitals: Temp Pulse Resp BP Pulse Ox 97.9 F 88 20 92/61 97 08/20/21 07:37 08/20/21 11:40 08/20/21 11:40 08/20/21 11:40 08/20/21 11:40 HEART Score - HEART Score Troponin: Troponin T 0.015 ng/mL (0.00-0.029) 08/20/21 10:57 Results - Labs CBC & Chem 7: 08/20/21 08:03 08/21/21 04:23 Labs: Abnormal lab results 08/20/21 08/20/21 08/20/21 Range/Units 08:03 08:03 08:03 MCV 96 H (84-94) fl Seg Neutrophils % 73.7 H (40.0-70.0) % PT 17.0 H (12.2-14.9) Sec. INR 1.25 H (0.87-1.13) Sodium 131 L (137-145) mmol/L Chloride 94.8 L (98-107) mmol/L BUN 37 H (9-20) mg/dL Creatinine 1.6 H (0.8-1.3) mg/dL Glucose 101 H (75-100) mg/dL Total Bilirubin 1.70 H (0.1-1.2) mg/dL NT-Pro-B Natriuret Pep (0-450) pg/mL Albumin 3.5 L (3.9-5) g/dL 08/20/21 Range/Units 08:03 MCV (84-94) fl Seg Neutrophils % (40.0-70.0) % PT (12.2-14.9) Sec. INR (0.87-1.13) Sodium (137-145) mmol/L Chloride (98-107) mmol/L BUN (9-20) mg/dL Creatinine (0.8-1.3) mg/dL Glucose (75-100) mg/dL Total Bilirubin (0.1-1.2) mg/dL NT-Pro-B Natriuret Pep 5807 H (0-450) pg/mL Albumin (3.9-5) g/dL Assessment and Plan --CHF exacerbation --Nestor, vasomotor nephropathy vs cardiorenal syndrom --Morbid obesity --dietary noncompliance
[2021-08-20] MEDS ORDERED: MIDODRINE 5 MG TAB PO ONE (13:00)
[2021-08-20] MEDS: MIDODRINE 5 MG TAB PO SCH (17:33)
[2021-08-20] MEDS: BUMETANIDE 1 MG/4 ML INJ IV SCH (19:03)
[2021-08-20] MEDS: HEPARIN 5,000 UNIT/1 ML VIAL SUB-Q SCH (21:57)
[2021-08-21] MEDS: BUMETANIDE 1 MG/4 ML INJ IV SCH ×2 (05:39→18:43)
--- NOTE | 2021-08-21 05:54 | Consultation ---
DATE OF CONSULTATION: 08/20/2021 CARDIOLOGY CONSULTATION REFERRING PHYSICIAN: Dr. Nikky Salazar in the Emergency Room. REFERRING PHYSICIAN: Hospitalist Service. PRIMARY RECEIVER DISPATCHER: Dr. Fisher. REASON FOR CONSULTATION: Advice and opinion regarding heart failure. HISTORY OF PRESENT ILLNESS: The patient is a very pleasant 40-year-old -[place] gentleman with a known history of a severe dilated nonischemic cardiomyopathy, presents here with shortness of breath for 2 weeks. He was out of his medications for the past 2 weeks. Denies any chest pain or syncope. He does have a defibrillator in place, which was placed in January. He last saw Dr. Fisher in the office in May, was doing well at this point, also sees Dr. Gaffney as his primary physician. Defibrillator was remotely interrogated in July and appeared to be functioning normally. He has had about 10 pounds of weight gain, also leg swelling and dyspnea on exertion as well as orthopnea. No hematochezia, melena, hemoptysis, or hematemesis. FAMILY HISTORY: Noncontributory. REVIEW OF SYSTEMS: As per HPI. MEDICATIONS: Inpatient and outpatient medications reviewed. PHYSICAL EXAMINATION: VITAL SIGNS: Blood pressure at this point is 103/69. He is afebrile. Tele reveals heart rate of 100-105, O2 sats 98% on room air. GENERAL: This is a young -[place] gentleman in no apparent distress, oriented x 3. HEENT: Sclerae are anicteric. PERRLA. NECK: Supple, no masses, no JVD. CHEST: Decreased breath sounds, bibasilar. Overall, moderate air movement. CARDIAC: Regular S1, S2. ABDOMEN: Soft, nontender, nondistended. EXTREMITIES: 2+ edema in bilateral extremities. SKIN: Warm, dry and intact. No rashes. LABORATORY DATA: CBC is unremarkable. Sodium is 131. Creatinine is 1.6. ProBNP is 5807. Chest x-ray is unremarkable. AICD in place. ECG reveals sinus tachycardia, heart rate of 100, poor R-wave progression, questionable lead misplacement. ASSESSMENT: In summary, the patient is a pleasant 40-year-old -[place] gentleman, who presents here with 2 weeks of worsening shortness of breath. Acute on chronic heart failure with reduced ejection fraction, this episode is likely triggered by medication noncompliance. We will reinitiate his reinitiate his diuretics, hold off on his beta carlos for now given his blood pressure soft, cardiac diet education, salt reduction. Repeat echocardiogram and we will continue to follow. Thank you for this consultation. TID: [id number] RECEIPT: [id number] LAYLA/HARDIK
[2021-08-21 07:53] LABS: Calcium 8.6 mg/dL (8.4-10.2)
--- NOTE | 2021-08-21 10:11 | Progress Note ---
Assessment and Plan Patient is clinically vastly improved. Continue IV diuresis. Blood pressures have continued to be soft. Thus, patient is not on beta-carlos or CONSTANTINO/ARB. Echocardiogram is pending. Needs diet education as well. Patient may have an element of cardiorenal syndrome as creatinine is mildly elevated. We will continue to watch. - Patient Problems (1) Dietary noncompliance Current Visit: Yes Status: Acute (2) ICD (implantable cardioverter-defibrillator) in place Current Visit: Yes Status: Chronic (3) Acute HFrEF (heart failure with reduced ejection fraction) Current Visit: No Status: Acute (4) Obesity hypoventilation syndrome Current Visit: No Status: Acute (5) Diabetes mellitus Current Visit: No Status: Chronic Qualifiers: Diabetes mellitus type: type 2 Subjective Date of service: 08/21/21 Interval history: Patient feels better. Much less short of breath. Objective Vital Signs Temp Pulse Resp BP BP Pulse Ox 08/21/21 07:52 98.2 F 89 18 98/73 96 08/21/21 04:17 97.4 F L 59 L 16 101/66 99 08/20/21 23:36 99.0 F 97 H 18 120/52 99 08/20/21 20:19 18 100 08/20/21 18:58 96.9 F L 93 H 20 96/58 95 08/20/21 17:06 98.2 F 71 18 91/57 95 08/20/21 17:00 18 100 08/20/21 16:30 90 25 H 80/59 79 L 08/20/21 16:29 97.8 F 96 H 15 101/72 97 08/20/21 16:20 92 H 23 100/81 100 08/20/21 16:10 89 17 100/81 90 08/20/21 16:00 91 H 24 80/59 88 08/20/21 15:50 91 H 20 84/58 97 08/20/21 15:30 91 H 21 81/60 97 08/20/21 15:16 92 H 14 87/55 97 08/20/21 14:46 98 H 20 93/51 96 08/20/21 14:30 93 H 14 89/58 86 08/20/21 14:16 92 H 23 84/61 99 08/20/21 14:00 95 H 21 89/58 84 08/20/21 13:46 93 H 13 87/55 94 08/20/21 13:30 93 H 27 H 80/62 97 08/20/21 13:16 92 H 21 82/52 94 08/20/21 13:00 92 H 16 76/36 99 08/20/21 12:46 91 H 16 81/57 97 08/20/21 12:30 92 H 14 85/55 08/20/21 12:16 90 20 68/49 87 08/20/21 12:00 93 H 18 81/57 99 08/20/21 11:46 88 14 92/61 92 08/20/21 11:40 88 20 92/61 97 08/20/21 11:30 91 H 17 92/61 95 08/20/21 11:20 93 H 17 92/61 94 08/20/21 11:10 95 H 29 H 92/61 93 08/20/21 11:00 93 H 22 92/61 81 L 08/20/21 10:50 96 H 23 103/69 96 08/20/21 10:40 97 H 17 103/69 98 08/20/21 10:16 104 H 18 103/69 98 - Labs and Meds Comprehensive Metabolic Panel 08/21/21 Range/Units 04:23 Sodium 130 L (137-145) mmol/L Potassium 5.2 H (3.6-5.0) mmol/L Chloride 94.0 L (98-107) mmol/L Carbon Dioxide 23 (22-30) mmol/L BUN 43 H (9-20) mg/dL Creatinine 1.7 H (0.8-1.3) mg/dL Glucose 131 H (75-100) mg/dL Calcium 8.6 (8.4-10.2) mg/dL
[2021-08-21] MEDS ORDERED: FLU VACC QUAD 2021-22(6MOS UP)/PF 60 MCG/0.5 ML SYRINGE IM ONE (12:00)
[2021-08-21] MEDS: MIDODRINE 5 MG TAB PO SCH ×3 (12:38→18:43)
[2021-08-21] MEDS: HEPARIN 5,000 UNIT/1 ML VIAL SUB-Q SCH ×2 (12:39→21:28)
[2021-08-21] MEDS: ASPIRIN 325 MG TAB PO SCH (12:39)
--- NOTE | 2021-08-21 15:58 | Progress Note ---
Assessment and Plan --CHF exacerbation --Nestor, vasomotor nephropathy vs cardiorenal syndrom --Morbid obesity --dietary noncompliance 08/21: cont diuresis, midodrine for low BP, cardiology following, Echocardiogram is pending. Subjective Date of service: 08/21/21 Objective - Constitutional Vitals: Vital Signs - 12hr 08/21/21 08/21/21 08/21/21 04:17 07:52 11:17 Temperature 97.4 F L 98.2 F 98.2 F Pulse Rate 59 L 89 Respiratory 16 18 18 Rate Blood Pressure 101/66 98/73 91/52 O2 Sat by Pulse 99 96 Oximetry - Labs CBC & Chem 7: 08/20/21 08:03 08/21/21 04:23 Labs: Abnormal lab results 08/21/21 Range/Units 04:23 Sodium 130 L (137-145) mmol/L Potassium 5.2 H (3.6-5.0) mmol/L Chloride 94.0 L (98-107) mmol/L BUN 43 H (9-20) mg/dL Creatinine 1.7 H (0.8-1.3) mg/dL Glucose 131 H (75-100) mg/dL HEART Score - HEART Score Troponin: Troponin T 0.013 ng/mL (0.00-0.029) 08/20/21 15:55
[2021-08-22] MEDS: BUMETANIDE 1 MG/4 ML INJ IV SCH ×2 (05:45→19:32)
[2021-08-22 08:00] LABS: Calcium 8.8 mg/dL (8.4-10.2)
[2021-08-22] MEDS: ASPIRIN 325 MG TAB PO SCH (10:50)
[2021-08-22] MEDS: HEPARIN 5,000 UNIT/1 ML VIAL SUB-Q SCH ×2 (10:51→21:02)
[2021-08-22] MEDS: MIDODRINE 5 MG TAB PO SCH ×3 (10:51→19:33)
--- NOTE | 2021-08-22 12:01 | Progress Note ---
Assessment and Plan Inititiate midodrine 5mg PO BID and dobutamine gtt Continue IV diuresis with bumex 1mg IV BID Blood pressures have continued to be soft. No beta-carlos or CONSTANTINO/ARB. Echo pending Inititiate CPAP HS Patient seen in conjunction with Dr. Tyler who agrees with this plan of care. Will continue to follow - Patient Problems (1) ICD (implantable cardioverter-defibrillator) in place Current Visit: Yes Status: Chronic (2) Acute on chronic HFrEF (heart failure with reduced ejection fraction) Current Visit: No Status: Acute (3) Hyperlipidemia Current Visit: No Status: Acute Qualifiers: Hyperlipidemia type: mixed hyperlipidemia Qualified Code(s): E78.2 - Mixed hyperlipidemia (4) Cardiomyopathy Current Visit: No Status: Chronic (5) Diabetes mellitus Current Visit: No Status: Chronic Qualifiers: Diabetes mellitus type: type 2 (6) ICD (implantable cardioverter-defibrillator) in place Current Visit: No Status: Chronic (7) Nonischemic cardiomyopathy Current Visit: No Status: Chronic (8) Obesity (BMI 30.0-34.9) Current Visit: No Status: Chronic (9) Acute respiratory failure Current Visit: Yes Status: Acute (10) Renal insufficiency Current Visit: Yes Status: Acute Subjective Date of service: 08/22/21 Principal diagnosis: acute on chroninc HFrEF Interval history: Patient resting in bed in no acute distress Paced 100 no event monitor Objective Vital Signs Temp Pulse Resp BP BP Pulse Ox 08/22/21 10:40 108/76 08/22/21 04:29 98.6 F 68 20 141/68 08/21/21 23:45 98.0 F 18 106/71 08/21/21 19:54 18 100 08/21/21 19:18 98.5 F 53 L 18 95/62 99 08/21/21 15:49 97.9 F 91 H 18 153/109 96 - Physical Examination General: No Apparent Distress HEENT: Positive: PERRL Cardiac: Positive: Reg Rate and Rhythm Lungs: Positive: Normal Breath Sounds Neuro: Positive: Grossly Intact Abdomen: Positive: Soft Skin: Negative: Rash, Suspicious Lesions, Ulceration Extremities: Present: upper extr. pulses, lower extr. pulses, edema - Labs and Meds Comprehensive Metabolic Panel 08/22/21 Range/Units 07:11 Sodium 132 L (137-145) mmol/L Potassium 4.9 (3.6-5.0) mmol/L Chloride 94.1 L (98-107) mmol/L Carbon Dioxide 24 (22-30) mmol/L BUN 47 H (9-20) mg/dL Creatinine 1.7 H (0.8-1.3) mg/dL Glucose 117 H (75-100) mg/dL Calcium 8.8 (8.4-10.2) mg/dL
--- NOTE | 2021-08-22 16:11 | Progress Note ---
Assessment and Plan --Acute on chronic CHF exacerbation - placed on Aspirin, statin, and bumax IV - order 2D echo and consult cardiology - cardiac diet now, daily weights, monitor in's and O's - provide DVT Px with lovenox --Nestor, vasomotor nephropathy vs cardiorenal syndrom Follow renal function, monitor BMP --Morbid obesity Dietary and exercise recommendation when clinically stable on discharge --dietary noncompliance, counseled --Hypotension, initiated on midodrine --DVT prophylaxis: on lovenox Daily clinical course: 08/21: cont diuresis, midodrine for low BP, cardiology following, Echocardiogram is pending. 08/22/21: Plan to initiate dobutamin drip as urine output not improved, cont diuresis, follow BMP Subjective Date of service: 08/22/21 Principal diagnosis: acute on chroninc HFrEF Interval history: Patient seen and examined. Medical records and medication list reviewed. No acute event overnight noted by the RN. Patient denies any chest pain or difficulty breathing. Patient is tolerating diet. Continues to complain of lower extremity swelling Discussed plan of care at bedside with patient. Objective - Exam Narrative Exam: GENERAL: well-developed morbidly obese AAM lying on bed appeared to be in no discomfort. HEENT: Normocephalic. Atraumatic. No conjunctival congestion or icterus. Patient has moist mucous membranes. NECK: Supple. Trachea midline. CHEST/LUNGS: Clear to auscultated bilaterally, breathing nonlabored. No wheezes crackles or rhonchi. HEART/CARDIOVASCULAR: Regular in rate and rhythm. S1 and S2 positive. ABDOMEN: Abdomen is soft, nontender. Patient has normal bowel sounds. SKIN: There is no rash. Warm and dry. NEURO: No focal motor deficit. Follows command. MUSCULOSKELETAL: No joint effusion or tenderness. EXTRIMITY: 3+ pitting edema, no cyanosis or clubbing. PSYCH: Cooperative. - Constitutional Vitals: Vital Signs - 12hr 08/22/21 08/22/21 08/22/21 04:29 07:00 10:40 Temperature 98.6 F 97.9 F Pulse Rate 68 80 Respiratory 20 20 Rate Blood Pressure 108/76 Blood Pressure 141/68 98/75 [Right] O2 Sat by Pulse 98 Oximetry - Labs CBC & Chem 7: 08/20/21 08:03 08/22/21 07:11 Labs: Abnormal lab results 08/21/21 08/22/21 08/22/21 Range/Units 21:02 07:11 07:40 Sodium 132 L (137-145) mmol/L Chloride 94.1 L (98-107) mmol/L BUN 47 H (9-20) mg/dL Creatinine 1.7 H (0.8-1.3) mg/dL Glucose 117 H (75-100) mg/dL POC Glucose 132 H 121 H (70-105) mg/dL 08/22/21 Range/Units 11:13 Sodium (137-145) mmol/L Chloride (98-107) mmol/L BUN (9-20) mg/dL Creatinine (0.8-1.3) mg/dL Glucose (75-100) mg/dL POC Glucose 177 H (70-105) mg/dL HEART Score - HEART Score Troponin: Troponin T 0.013 ng/mL (0.00-0.029) 08/20/21 15:55
[2021-08-22] MEDS: DOBUTamine/D5W 500 MG/250 ML 500 MG/250 ML BAG IV SCH (20:59)
[2021-08-23] MEDS: BUMETANIDE 1 MG/4 ML INJ IV SCH ×2 (06:06→17:31)
[2021-08-23 06:13] LABS: Hematocrit 38.9 % (35.5-45.6); Hemoglobin 12.6 gm/dl (11.8-15.2); Mean Corpuscular HGB Conc 33 % (32-34); Mean Corpuscular Volume 95 fl (84-94); Platelet Count 150 K/mm3 (140-440); Red Blood Count 4.07 M/mm3 (3.65-5.03); Red Cell Distribution Width 15.2 % (13.2-15.2)
[2021-08-23 06:22] LABS: Calcium 8.6 mg/dL (8.4-10.2)
[2021-08-23] MEDS: ASPIRIN 325 MG TAB PO SCH (09:01)
[2021-08-23] MEDS: HEPARIN 5,000 UNIT/1 ML VIAL SUB-Q SCH (09:02)
[2021-08-23] MEDS: MIDODRINE 5 MG TAB PO SCH ×2 (09:03→17:31)
[2021-08-23] MEDS ORDERED: ENOXAPARIN 100 MG/1 ML INJ SUB-Q SCH (12:00)
--- NOTE | 2021-08-23 13:08 | Progress Note ---
Assessment and Plan Echo 08/22/2021-EF 10 to 15%, severe global hypokinesis of left ventricle, left ventricle severely dilated. Right ventricle is moderately dilated, right ventricle is moderately hypokinetic, device lead is present in his right ventricle. Left and right atrium moderately dilated. Moderate tricuspid regurgitation, mild to moderate pulmonic regurgitation Continue midodrine 5mg PO BID and dobutamine gtt Continue IV diuresis with bumex 2mg IV BID Blood pressures have continued to be soft. No beta-carlos or CONSTANTINO/ARB. Initiate lovenox for anticoagulation Patient seen in conjunction with Dr. Tyler who agrees with this plan of care. Will continue to follow - Patient Problems (1) ICD (implantable cardioverter-defibrillator) in place Current Visit: Yes Status: Chronic (2) Acute on chronic HFrEF (heart failure with reduced ejection fraction) Current Visit: No Status: Acute (3) Hyperlipidemia Current Visit: No Status: Acute Qualifiers: Hyperlipidemia type: mixed hyperlipidemia Qualified Code(s): E78.2 - Mixed hyperlipidemia (4) Cardiomyopathy Current Visit: No Status: Chronic (5) Diabetes mellitus Current Visit: No Status: Chronic Qualifiers: Diabetes mellitus type: type 2 (6) ICD (implantable cardioverter-defibrillator) in place Current Visit: No Status: Chronic (7) Nonischemic cardiomyopathy Current Visit: No Status: Chronic (8) Obesity (BMI 30.0-34.9) Current Visit: No Status: Chronic (9) Acute respiratory failure Current Visit: Yes Status: Acute (10) Renal insufficiency Current Visit: Yes Status: Acute Subjective Date of service: 08/23/21 Principal diagnosis: acute on chroninc HFrEF Interval history: Patient sitting in a chair in no acute distress. Report feeling better Paced 100 no event monitor Objective Vital Signs Temp Pulse Resp BP BP Pulse Ox 08/23/21 11:54 97.4 F L 105 H 18 101/73 97 08/23/21 08:00 20 97 08/23/21 07:59 97.9 F 111 H 18 105/74 97 08/23/21 04:16 97.9 F 102 H 20 118/72 98 08/22/21 23:28 98.0 F 107 H 20 113/76 97 08/22/21 20:10 97.4 F L 101 H 20 129/84 95 08/22/21 20:04 97.8 F 56 L 16 121/78 97 08/22/21 20:00 18 100 - Physical Examination General: No Apparent Distress HEENT: Positive: PERRL Neck: Positive: trachea midline Cardiac: Positive: Reg Rate and Rhythm Lungs: Positive: Decreased Breath Sounds Neuro: Positive: Grossly Intact Abdomen: Positive: Soft Skin: Negative: Rash, Suspicious Lesions, Ulceration Extremities: Present: upper extr. pulses, lower extr. pulses, edema, +4 Edema - Labs and Meds CBC 08/23/21 Range/Units 05:13 WBC 7.0 (4.5-11.0) K/mm3 RBC 4.07 (3.65-5.03) M/mm3 Hgb 12.6 (11.8-15.2) gm/dl Hct 38.9 (35.5-45.6) % Plt Count 150 (140-440) K/mm3 Comprehensive Metabolic Panel 08/23/21 Range/Units 05:13 Sodium 133 L (137-145) mmol/L Potassium 4.3 (3.6-5.0) mmol/L Chloride 95.4 L (98-107) mmol/L Carbon Dioxide 27 (22-30) mmol/L BUN 42 H (9-20) mg/dL Creatinine 1.6 H (0.8-1.3) mg/dL Glucose 122 H (75-100) mg/dL Calcium 8.6 (8.4-10.2) mg/dL - Imaging and Cardiology Echo: report reviewed - Telemetry EKG Rhythm: Paced
[2021-08-23] MEDS: ENOXAPARIN 150 MG/1 ML INJ SUB-Q SCH ×2 (14:58→21:54)
--- NOTE | 2021-08-23 18:13 | Progress Note ---
Assessment and Plan Assessment and plan: 40 y/o male with PMHx of HFrEF, dilated cardiomyopathy EF 15 to 20%, pacemaker in situ, hypertension, hyperlipidemia, diabetes, and DIANN presents to the hospital with complaints of worsening edema, abdominal distention, shortness of breath, and 40 pound weight gain x1 month. Patient was admitted here in June for CHF exacerbation. He has been compliant with his Bumex and Aldactone however has been out of his carvedilol for the past 3 weeks. Patient states he has been noncompliant with his recommended 1 L daily fluid restriction. He also thinks he has been ingesting too much salt. Patient c omplains of frequent coughing and wheezing with cough. Denies fever or chest pain. Patient was scheduled to see Dr. Fisher as outpatient on the first --Acute on chronic CHF exacerbation: Patient reporting gross lower extremity edema without significant respiratory distress - placed on Aspirin, statin, and bumax IV - ordered 2D echo-for chamber enlargement, global LV hypokinesis with LVEF 10 to 15%, normal LV wall thickness, -Cardiology consulted and evaluating, placed on dobutamine infusion - cardiac diet now, daily weights, monitor in's and O's - provide DVT Px with lovenox --Nestor, vasomotor nephropathy vs cardiorenal syndrom Follow renal function, monitor BMP --Morbid obesity Dietary and exercise recommendation when clinically stable on discharge --dietary noncompliance, counseled --Hypotension, initiated on midodrine, asymptomatic --DVT prophylaxis: on lovenox Daily clinical course: 08/21: cont diuresis, midodrine for low BP, cardiology following, Echocardiogram is pending. 08/22/21: Plan to initiate dobutamin drip as urine output not improved, cont diuresis, follow BMP 08/23/2021: Remains on dobutamine infusion, no dyspnea or PND, BP remains soft on midodrine but mentating normally and asymptomatic, gross lower extremity edema not much improvement, urine output only 1650 mL, Bumex dose increased today, creatinine 1.7 and 1.6 today, cardiology is considering transfer to heart failure centers if no improvement. Discussed the patient in cardiology. History Interval history: Patient reports no dyspnea, palpitations PND. No improvement in the gross leg edema. Urine output only 6 CPK level. Creatinine 1.7 and 1.6. Diuretic dose increased today by cardiology. Remains on dobutamine infusion. Cardiology is considering transfer to heart failure center if no improvement. Blood pressure remains borderline on midodrine but mentating well. Denies lightheadedness/dizziness. Hospitalist Physical - Constitutional Vitals: Temp Pulse Resp BP Pulse Ox 97.1 F L 109 H 18 106/85 99 08/23/21 15:07 08/23/21 15:07 08/23/21 15:07 08/23/21 15:07 08/23/21 15:07 General appearance: Present: no acute distress, obese - EENT Eyes: Present: PERRL, EOM intact ENT: clear oral mucosa - Neck Neck: Absent: masses or JVD - Respiratory Respiratory effort: normal Respiratory: bilateral: CTA - Cardiovascular Rhythm: other (Gallop with s3, soft systolic murmur) - Extremities Extremity abnormal: edema (Gross 4+ lower extremity edema) - Abdominal General gastrointestinal: soft, non-tender, normal bowel sounds - Psychiatric Psychiatric: appropriate mood/affect - Neurologic Neurologic: no focal deficits HEART Score - HEART Score Troponin: Troponin T 0.013 ng/mL (0.00-0.029) 08/20/21 15:55 Results - Labs CBC & Chem 7: 08/23/21 05:13 08/23/21 05:13 Labs: Laboratory Last Values WBC 7.0 K/mm3 (4.5-11.0) 08/23/21 05:13 RBC 4.07 M/mm3 (3.65-5.03) 08/23/21 05:13 Hgb 12.6 gm/dl (11.8-15.2) 08/23/21 05:13 Hct 38.9 % (35.5-45.6) 08/23/21 05:13 MCV 95 fl (84-94) H 08/23/21 05:13 MCH 31 pg (28-32) 08/23/21 05:13 MCHC 33 % (32-34) 08/23/21 05:13 RDW 15.2 % (13.2-15.2) 08/23/21 05:13 Plt Count 150 K/mm3 (140-440) 08/23/21 05:13 Lymph % (Auto) 18.9 % (13.4-35.0) 08/20/21 08:03 [place] % (Auto) 7.0 % (0.0-7.3) 08/20/21 08:03 Eos % (Auto) 0.1 % (0.0-4.3) 08/20/21 08:03 Baso % (Auto) 0.3 % (0.0-1.8) 08/20/21 08:03 Lymph # (Auto) 1.4 K/mm3 (1.2-5.4) 08/20/21 08:03 [place] # (Auto) 0.5 K/mm3 (0.0-0.8) 08/20/21 08:03 Eos # (Auto) 0.0 K/mm3 (0.0-0.4) 08/20/21 08:03 Baso # (Auto) 0.0 K/mm3 (0.0-0.1) 08/20/21 08:03 Seg Neutrophils % 73.7 % (40.0-70.0) H 08/20/21 08:03 Seg Neutrophils # 5.4 K/mm3 (1.8-7.7) 08/20/21 08:03 PT 17.0 Sec. (12.2-14.9) H 08/20/21 08:03 INR 1.25 (0.87-1.13) H 08/20/21 08:03 Sodium 133 mmol/L (137-145) L 08/23/21 05:13 Potassium 4.3 mmol/L (3.6-5.0) 08/23/21 05:13 Chloride 95.4 mmol/L (98-107) L 08/23/21 05:13 Carbon Dioxide 27 mmol/L (22-30) 08/23/21 05:13 Anion Gap 15 mmol/L 08/23/21 05:13 BUN 42 mg/dL (9-20) H 08/23/21 05:13 Creatinine 1.6 mg/dL (0.8-1.3) H 08/23/21 05:13 Estimated GFR 58 ml/min 08/23/21 05:13 BUN/Creatinine Ratio 26 % 08/23/21 05:13 Glucose 122 mg/dL (75-100) H 08/23/21 05:13 POC Glucose 179 mg/dL (70-105) H 08/22/21 21:59 Calcium 8.6 mg/dL (8.4-10.2) 08/23/21 05:13 Total Bilirubin 1.70 mg/dL (0.1-1.2) H 08/20/21 08:03 AST 34 units/L (5-40) 08/20/21 08:03 ALT 26 units/L (7-56) 08/20/21 08:03 Alkaline Phosphatase 66 units/L (35-129) 08/20/21 08:03 Troponin T 0.013 ng/mL (0.00-0.029) 08/20/21 15:55 NT-Pro-B Natriuret Pep 5807 pg/mL (0-450) H 08/20/21 08:03 Total Protein 7.7 g/dL (6.3-8.2) 08/20/21 08:03 Albumin 3.5 g/dL (3.9-5) L 08/20/21 08:03 Albumin/Globulin Ratio 0.8 % 08/20/21 08:03 Smith/IV: Voiding Method Urinal Active Medications - Current Medications Current Medications: Generic Name Dose Route Start Last Admin Trade Name Freq PRN Reason Stop Dose Admin Aspirin 325 mg 08/21/21 10:00 08/23/21 09:01 Aspirin 325 Mg Tab PO 325 mg QDAY IJEOMA Administration Atorvastatin Calcium 40 mg 08/20/21 22:00 08/22/21 21:02 Atorvastatin 40 Mg Tab PO 40 mg QHS IJEOMA Administration Bumetanide 2 mg 08/23/21 18:00 08/23/21 17:31 Bumetanide 1 Mg/4 Ml Inj IV 2 mg BID@0600,1800 IJEOMA Administration Enoxaparin Sodium 140 mg 08/23/21 13:00 08/23/21 14:58 Enoxaparin 150 Mg/1 Ml Inj SUB-Q 140 mg Q12HR IJEOMA Administration Protocol Dobutamine HCl/Dextrose 500 mg in 250 mls @ 10.275 mls/hr 08/22/21 12:00 08/22/21 20:59 Dobutrex Drip 500mg/D5w 250ml IV 2.5 mcg/kg/min DIRECT IJEOMA 90.525 mls/hr Administration Protocol 2.5 MCG/KG/MIN Midodrine 5 mg 08/22/21 10:00 08/23/21 17:31 Midodrine 5 Mg Tab PO 5 mg 0800,1800 IJEOMA Administration
--- NOTE | 2021-08-23 18:43 | Electrocardiograph Report ---
[facility] Test Date: 2021-08-20 Test Time: 07:52:47 Pat Name: SHARLA MAST Department: Room: A458 Gender: M Data Processor: PREETHI : 1980 Requested By: ROSANA GUERRERO Order Number: [id number] Reading MD: Jaime Lu Measurements Intervals [place] Rate: 110 P: 55 IN: 172 QRS: 154 QRSD: 124 T: -9 QT: 368 QTc: 499 Interpretive Statements Sinus tachycardia Ventricular premature complex Probable left atrial enlargement Low voltage QRS Nonspecific intraventricular conduction delay Anterolateral infarct, age indeterminate Compared to ECG 07/18/2021 14:07:44 Ventricular-paced complex(es) or rhythm no longer present Electronically Signed On 08-23-2021 18:43:31 EDT by Jaime Lu
[2021-08-23] MEDS: DOBUTamine/D5W 500 MG/250 ML 500 MG/250 ML BAG IV SCH (19:15)
[2021-08-24] MEDS: BUMETANIDE 1 MG/4 ML INJ IV SCH ×2 (05:53→19:26)
[2021-08-24] MEDS: MIDODRINE 5 MG TAB PO SCH ×2 (09:06→17:58)
[2021-08-24] MEDS: ASPIRIN 325 MG TAB PO SCH (09:07)
[2021-08-24] MEDS: ENOXAPARIN 150 MG/1 ML INJ SUB-Q SCH ×2 (09:07→22:47)
--- NOTE | 2021-08-24 10:28 | Progress Note ---
Assessment and Plan Echo 08/22/2021-EF 10 to 15%, severe global hypokinesis of left ventricle, left ventricle severely dilated. Right ventricle is moderately dilated, right ventricle is moderately hypokinetic, device lead is present in his right ventricle. Left and right atrium moderately dilated. Moderate tricuspid regurgitation, mild to moderate pulmonic regurgitation Continue midodrine 5mg PO BID and dobutamine gtt Over a 1L of UOP. Continue IV diuresis with bumex 2mg IV BID Blood pressures have continued to be soft. No beta-carlos or CONSTANTINO/ARB. Continue lovenox for anticoagulation Patient seen in conjunction with Dr. Tyler who agrees with this plan of care. Will continue to follow - Patient Problems (1) ICD (implantable cardioverter-defibrillator) in place Current Visit: Yes Status: Chronic (2) Acute on chronic HFrEF (heart failure with reduced ejection fraction) Current Visit: No Status: Acute (3) Hyperlipidemia Current Visit: No Status: Acute Qualifiers: Hyperlipidemia type: mixed hyperlipidemia Qualified Code(s): E78.2 - Mixed hyperlipidemia (4) Cardiomyopathy Current Visit: No Status: Chronic (5) Diabetes mellitus Current Visit: No Status: Chronic Qualifiers: Diabetes mellitus type: type 2 (6) ICD (implantable cardioverter-defibrillator) in place Current Visit: No Status: Chronic (7) Nonischemic cardiomyopathy Current Visit: No Status: Chronic (8) Obesity (BMI 30.0-34.9) Current Visit: No Status: Chronic (9) Acute respiratory failure Current Visit: Yes Status: Acute (10) Renal insufficiency Current Visit: Yes Status: Acute Subjective Date of service: 08/24/21 Principal diagnosis: acute on chroninc HFrEF Interval history: Patient sitting in a chair in no acute distress. Reports continued improvement on breathing and a decreasing in leg edema Paced 100 no event monitor Objective Vital Signs Temp Pulse Resp BP Pulse Ox 08/24/21 08:15 97.6 F 111 H 18 110/83 99 08/24/21 03:50 98.1 F 109 H 20 123/61 94 08/23/21 23:32 98.6 F 109 H 20 114/74 97 08/23/21 20:22 97.6 F 110 H 20 126/77 100 08/23/21 20:00 18 100 08/23/21 15:07 97.1 F L 109 H 18 106/85 99 08/23/21 11:54 97.4 F L 105 H 18 101/73 97 - Physical Examination General: No Apparent Distress HEENT: Positive: PERRL Neck: Positive: trachea midline Cardiac: Positive: Reg Rate and Rhythm Lungs: Positive: Decreased Breath Sounds Neuro: Positive: Grossly Intact Abdomen: Positive: Soft Skin: Negative: Rash, Suspicious Lesions, Ulceration Extremities: Present: upper extr. pulses, lower extr. pulses, +3 Edema - Imaging and Cardiology Echo: report reviewed - Telemetry EKG Rhythm: Paced
[2021-08-24] MEDS: ACETAMINOPHEN 325 MG TAB PO PRN (14:09)
[2021-08-24 16:00] LABS: Alanine Aminotransferase 33 units/L (7-56); Albumin 3.8 g/dL (3.9-5); BUN/Creatinine Ratio 24; Blood Urea Nitrogen 29 mg/dL (9-20); Calcium 8.7 mg/dL (8.4-10.2); Hemolysis Index 20
--- NOTE | 2021-08-24 16:06 | Progress Note ---
Assessment and Plan Assessment and plan: 40 y/o male with PMHx of HFrEF, dilated cardiomyopathy EF 15 to 20%, pacemaker in situ, hypertension, hyperlipidemia, diabetes, and DIANN presents to the hospital with complaints of worsening edema, abdominal distention, shortness of breath, and 40 pound weight gain x1 month. Patient was admitted here in June for CHF exacerbation. He has been compliant with his Bumex and Aldactone however has been out of his carvedilol for the past 3 weeks. Patient states he has been noncompliant with his recommended 1 L daily fluid restriction. He also thinks he has been ingesting too much salt. Patient c omplains of frequent coughing and wheezing with cough. Denies fever or chest pain. Patient was scheduled to see Dr. Fisher as outpatient on the first --Acute on chronic CHF exacerbation: Patient reporting gross lower extremity edema without significant respiratory distress - placed on Aspirin, statin, and bumax IV - ordered 2D echo-for chamber enlargement, global LV hypokinesis with LVEF 10 to 15%, normal LV wall thickness, -Cardiology consulted and evaluating, placed on dobutamine infusion - cardiac diet now, daily weights, monitor in's and O's - provide DVT Px with lovenox --Nestor, vasomotor nephropathy vs cardiorenal syndrom Follow renal function, monitor BMP --Morbid obesity Dietary and exercise recommendation when clinically stable on discharge --dietary noncompliance, counseled --Hypotension, initiated on midodrine, asymptomatic --DVT prophylaxis: on lovenox Daily clinical course: 08/21: cont diuresis, midodrine for low BP, cardiology following, Echocardiogram is pending. 08/22/21: Plan to initiate dobutamin drip as urine output not improved, cont diuresis, follow BMP 08/23/2021: Remains on dobutamine infusion, no dyspnea or PND, BP remains soft on midodrine but mentating normally and asymptomatic, gross lower extremity edema not much improvement, urine output only 1650 mL, Bumex dose increased today, creatinine 1.7 and 1.6 today, cardiology is considering transfer to heart failure centers if no improvement. Discussed the patient in cardiology. 08/24/2021: Volume overload seems to be responding with IV Bumex and leg edema started improving. Urine output is probably not accurately documented. BP much improved and the sinus tachycardia remains. Creatinine improved from 1.7-1.2 today. Remains on dobutamine drip as well as a IV Bumex. Consider Bumex drip for more aggressive diuresis. Will discuss with cardiology. History Interval history: Patient remains free of respiratory symptoms. Patient reports that his leg swelling is improving, getting softer. However urine output is only reported 39 mL, probably not accurately being measured. Patient complains of pain in his both legs as well as the numbness. It tends to stay longer hours in the chair at bedside. Patient was advised to lay down in bed for the relief of leg pains and numbness. BP better sinus tach remains, creatinine improved from 1.7-1.2 today. Hospitalist Physical - Constitutional Vitals: Temp Pulse Resp BP Pulse Ox 97.6 F 113 H 18 110/83 99 08/24/21 08:15 08/24/21 10:00 08/24/21 12:11 08/24/21 08:15 08/24/21 12:11 General appearance: Present: no acute distress, obese - EENT Eyes: Present: PERRL, EOM intact ENT: clear oral mucosa - Neck Neck: Present: supple. Absent: masses or JVD - Respiratory Respiratory effort: normal Respiratory: bilateral: CTA - Cardiovascular Rhythm: other (Sinus tach with occasional ectopy versus S3 gallop) - Extremities Extremity abnormal: edema (Bilateral symmetrical gross edema 4+ but less tense today) - Abdominal General gastrointestinal: soft, non-tender, distended (Possibly has some ascites) - Integumentary Integumentary: Absent: rash - Psychiatric Psychiatric: appropriate mood/affect - Neurologic Neurologic: no focal deficits HEART Score - HEART Score Troponin: Troponin T 0.013 ng/mL (0.00-0.029) 08/20/21 15:55 Results - Labs CBC & Chem 7: 08/23/21 05:13 08/24/21 14:58 Labs: Laboratory Last Values WBC 7.0 K/mm3 (4.5-11.0) 08/23/21 05:13 RBC 4.07 M/mm3 (3.65-5.03) 08/23/21 05:13 Hgb 12.6 gm/dl (11.8-15.2) 08/23/21 05:13 Hct 38.9 % (35.5-45.6) 08/23/21 05:13 MCV 95 fl (84-94) H 08/23/21 05:13 MCH 31 pg (28-32) 08/23/21 05:13 MCHC 33 % (32-34) 08/23/21 05:13 RDW 15.2 % (13.2-15.2) 08/23/21 05:13 Plt Count 150 K/mm3 (140-440) 08/23/21 05:13 Lymph % (Auto) 18.9 % (13.4-35.0) 08/20/21 08:03 [place] % (Auto) 7.0 % (0.0-7.3) 08/20/21 08:03 Eos % (Auto) 0.1 % (0.0-4.3) 08/20/21 08:03 Baso % (Auto) 0.3 % (0.0-1.8) 08/20/21 08:03 Lymph # (Auto) 1.4 K/mm3 (1.2-5.4) 08/20/21 08:03 [place] # (Auto) 0.5 K/mm3 (0.0-0.8) 08/20/21 08:03 Eos # (Auto) 0.0 K/mm3 (0.0-0.4) 08/20/21 08:03 Baso # (Auto) 0.0 K/mm3 (0.0-0.1) 08/20/21 08:03 Seg Neutrophils % 73.7 % (40.0-70.0) H 08/20/21 08:03 Seg Neutrophils # 5.4 K/mm3 (1.8-7.7) 08/20/21 08:03 PT 17.0 Sec. (12.2-14.9) H 08/20/21 08:03 INR 1.25 (0.87-1.13) H 08/20/21 08:03 Sodium 135 mmol/L (137-145) L 08/24/21 14:58 Potassium 4.4 mmol/L (3.6-5.0) 08/24/21 14:58 Chloride 95.5 mmol/L (98-107) L 08/24/21 14:58 Carbon Dioxide 24 mmol/L (22-30) 08/24/21 14:58 Anion Gap 20 mmol/L 08/24/21 14:58 BUN 29 mg/dL (9-20) H 08/24/21 14:58 Creatinine 1.2 mg/dL (0.8-1.3) 08/24/21 14:58 Estimated GFR > 60 ml/min 08/24/21 14:58 BUN/Creatinine Ratio 24 % 08/24/21 14:58 Glucose 161 mg/dL (75-100) H 08/24/21 14:58 POC Glucose 158 mg/dL (70-105) H 08/23/21 21:37 Calcium 8.7 mg/dL (8.4-10.2) 08/24/21 14:58 Magnesium 2.30 mg/dL (1.7-2.3) 08/24/21 14:58 Total Bilirubin 1.40 mg/dL (0.1-1.2) H 08/24/21 14:58 AST 41 units/L (5-40) H 08/24/21 14:58 ALT 33 units/L (7-56) 08/24/21 14:58 Alkaline Phosphatase 100 units/L (35-129) 08/24/21 14:58 Troponin T 0.013 ng/mL (0.00-0.029) 08/20/21 15:55 NT-Pro-B Natriuret Pep 8256 pg/mL (0-450) H 08/24/21 14:58 Total Protein 8.3 g/dL (6.3-8.2) H 08/24/21 14:58 Albumin 3.8 g/dL (3.9-5) L 08/24/21 14:58 Albumin/Globulin Ratio 0.8 % 08/24/21 14:58 Smith/IV: Voiding Method Urinal Active Medications - Current Medications Current Medications: Generic Name Dose Route Start Last Admin Trade Name Freq PRN Reason Stop Dose Admin Acetaminophen 650 mg 08/24/21 13:00 08/24/21 14:09 Acetaminophen 325 Mg Tab PO 650 mg Q6H PRN Administration Pain, Mild (1-3) Aspirin 325 mg 08/21/21 10:00 08/24/21 09:07 Aspirin 325 Mg Tab PO 325 mg QDAY IJEOMA Administration Atorvastatin Calcium 40 mg 08/20/21 22:00 08/23/21 21:51 Atorvastatin 40 Mg Tab PO 40 mg QHS IJEOMA Administration Bumetanide 2 mg 08/23/21 18:00 08/24/21 05:53 Bumetanide 1 Mg/4 Ml Inj IV 2 mg BID@0600,1800 IJEOMA Administration Enoxaparin Sodium 140 mg 08/23/21 13:00 08/24/21 09:07 Enoxaparin 150 Mg/1 Ml Inj SUB-Q 140 mg Q12HR IJEOMA Administration Protocol Dobutamine HCl/Dextrose 500 mg in 250 mls @ 10.275 mls/hr 08/22/21 12:00 08/23/21 19:15 Dobutrex Drip 500mg/D5w 250ml IV 2.5 mcg/kg/min DIRECT IJEOMA 90.525 mls/hr Administration Protocol 2.5 MCG/KG/MIN Midodrine 5 mg 08/22/21 10:00 08/24/21 09:06 Midodrine 5 Mg Tab PO 5 mg 0800,1800 IJEOMA Administration
[2021-08-24] MEDS: DOBUTamine/D5W 500 MG/250 ML 500 MG/250 ML BAG IV SCH (19:26)
[2021-08-25] MEDS: BUMETANIDE 1 MG/4 ML INJ IV SCH ×2 (06:46→17:28)
[2021-08-25] MEDS: MIDODRINE 5 MG TAB PO SCH ×2 (08:53→17:27)
[2021-08-25] MEDS: ASPIRIN 325 MG TAB PO SCH (09:04)
[2021-08-25] MEDS: ENOXAPARIN 150 MG/1 ML INJ SUB-Q SCH ×2 (09:04→21:47)
[2021-08-25 10:21] LABS: BUN/Creatinine Ratio 18; Blood Urea Nitrogen 23 mg/dL (9-20); Calcium 8.5 mg/dL (8.4-10.2); Hemolysis Index 2
--- NOTE | 2021-08-25 11:18 | Progress Note ---
Assessment and Plan Echo 08/22/2021-EF 10 to 15%, severe global hypokinesis of left ventricle, left ventricle severely dilated. Right ventricle is moderately dilated, right ventricle is moderately hypokinetic, device lead is present in his right ventricle. Left and right atrium moderately dilated. Moderate tricuspid regurgitation, mild to moderate pulmonic regurgitation Continue midodrine 5mg PO BID and dobutamine gtt Over a 5L of net UOP. Continue IV diuresis with bumex 2mg IV BID Blood pressures have continued to be soft. No beta-carlos or CONSTANTINO/ARB. Continue lovenox for anticoagulation Patient seen in conjunction with Dr. Tyler who agrees with this plan of care. Will continue to follow. - Patient Problems (1) ICD (implantable cardioverter-defibrillator) in place Current Visit: Yes Status: Chronic (2) Acute on chronic HFrEF (heart failure with reduced ejection fraction) Current Visit: No Status: Acute (3) Hyperlipidemia Current Visit: No Status: Acute Qualifiers: Hyperlipidemia type: mixed hyperlipidemia Qualified Code(s): E78.2 - Mixed hyperlipidemia (4) Cardiomyopathy Current Visit: No Status: Chronic (5) Diabetes mellitus Current Visit: No Status: Chronic Qualifiers: Diabetes mellitus type: type 2 (6) ICD (implantable cardioverter-defibrillator) in place Current Visit: No Status: Chronic (7) Nonischemic cardiomyopathy Current Visit: No Status: Chronic (8) Obesity (BMI 30.0-34.9) Current Visit: No Status: Chronic (9) Acute respiratory failure Current Visit: Yes Status: Acute (10) Renal insufficiency Current Visit: Yes Status: Acute Subjective Date of service: 08/25/21 Principal diagnosis: acute on chroninc HFrEF Interval history: Patient resting in bed in no acute distress. Paced 118 with no event monitor uop= -5030ml Objective Vital Signs Temp Pulse Resp BP Pulse Ox 08/25/21 08:12 98.7 F 122 H 18 130/77 93 08/25/21 03:13 98.8 F 109 H 19 93/62 96 08/24/21 22:55 99.5 F 123 H 18 98/68 95 08/24/21 22:52 18 100 08/24/21 22:00 112 H 08/24/21 18:54 18 123/81 08/24/21 15:29 98.7 F 120 H 20 93/67 97 08/24/21 12:11 18 99 - Physical Examination General: No Apparent Distress HEENT: Positive: PERRL Neck: Positive: trachea midline Cardiac: Positive: Reg Rate and Rhythm Lungs: Positive: Normal Breath Sounds Neuro: Positive: Grossly Intact Abdomen: Positive: Soft Skin: Negative: Rash, Suspicious Lesions, Ulceration Extremities: Present: upper extr. pulses, lower extr. pulses, edema - Labs and Meds Cardiac Enzymes 08/24/21 Range/Units 14:58 AST 41 H (5-40) units/L Comprehensive Metabolic Panel 08/24/21 08/25/21 Range/Units 14:58 09:05 Sodium 135 L 136 L (137-145) mmol/L Potassium 4.4 3.9 (3.6-5.0) mmol/L Chloride 95.5 L 95.3 L (98-107) mmol/L Carbon Dioxide 24 30 (22-30) mmol/L BUN 29 H 23 H (9-20) mg/dL Creatinine 1.2 1.3 (0.8-1.3) mg/dL Glucose 161 H 226 H (75-100) mg/dL Calcium 8.7 8.5 (8.4-10.2) mg/dL AST 41 H (5-40) units/L ALT 33 (7-56) units/L Alkaline Phosphatase 100 (35-129) units/L Total Protein 8.3 H (6.3-8.2) g/dL Albumin 3.8 L (3.9-5) g/dL - Imaging and Cardiology Echo: report reviewed - Telemetry EKG Rhythm: Paced
[2021-08-25] MEDS: METOPROLOL TARTRATE 25 MG TAB PO SCH ×2 (11:57→21:48)
[2021-08-25] MEDS: ACETAMINOPHEN 325 MG TAB PO PRN ×2 (11:58→21:48)
--- NOTE | 2021-08-25 18:12 | Progress Note ---
Assessment and Plan Assessment and plan: 40 y/o male with PMHx of HFrEF, dilated cardiomyopathy EF 15 to 20%, pacemaker in situ, hypertension, hyperlipidemia, diabetes, and DIANN presents to the hospital with complaints of worsening edema, abdominal distention, shortness of breath, and 40 pound weight gain x1 month. Patient was admitted here in June for CHF exacerbation. He has been compliant with his Bumex and Aldactone however has been out of his carvedilol for the past 3 weeks. Patient states he has been noncompliant with his recommended 1 L daily fluid restriction. He also thinks he has been ingesting too much salt. Patient c omplains of frequent coughing and wheezing with cough. Denies fever or chest pain. Patient was scheduled to see Dr. Fisher as outpatient on the first --Acute on chronic CHF exacerbation: Patient reporting gross lower extremity edema without significant respiratory distress - placed on Aspirin, statin, and bumax IV - ordered 2D echo-for chamber enlargement, global LV hypokinesis with LVEF 10 to 15%, normal LV wall thickness, -Cardiology consulted and evaluating, placed on dobutamine infusion - cardiac diet now, daily weights, monitor in's and O's - provide DVT Px with lovenox --David, likely cardiorenal syndrom, resolved Follow renal function, monitor BMP --Morbid obesity Dietary and exercise recommendation when clinically stable on discharge --dietary noncompliance, counseled --Hypotension, initiated on midodrine, asymptomatic --DVT prophylaxis: on lovenox Daily clinical course: 08/21: cont diuresis, midodrine for low BP, cardiology following, Echocardiogram is pending. 08/22/21: Plan to initiate dobutamin drip as urine output not improved, cont diuresis, follow BMP 08/23/2021: Remains on dobutamine infusion, no dyspnea or PND, BP remains soft on midodrine but mentating normally and asymptomatic, gross lower extremity edema not much improvement, urine output only 1650 mL, Bumex dose increased today, creatinine 1.7 and 1.6 today, cardiology is considering transfer to heart failure centers if no improvement. Discussed the patient in cardiology. 08/24/2021: Volume overload seems to be responding with IV Bumex and leg edema started improving. Urine output is probably not accurately documented. BP much improved and the sinus tachycardia remains. Creatinine improved from 1.7-1.2 today. Remains on dobutamine drip as well as a IV Bumex. Consider Bumex drip for more aggressive diuresis. Will discuss with cardiology. 08/25/2021: Urine output 6400 mL yesterday. Next still grossly swollen but soft with improving. Patient is complaining of significant pain in the right lower extremity which appears to be more swollen than the left. Ultrasound ordered to rule out DVT. Recommended elevation. Started beta-carlos for sinus tachycardia since of hypotension resolved. Remains on dobutamine and IV Bumex. DAVID likely from cardiorenal syndrome resolved. History Interval history: Patient remains free of respiratory symptoms. Patient reports that his leg swelling is improving, getting softer. Remains on dobutamine and IV Bumex. Urine output 6400 mL. Patient complains of pain in his both legs but no mostly in the right. Afebrile. Start on beta-carlos for sinus tachycardia since hypotension resolved. Hospitalist Physical - Constitutional Vitals: Temp Pulse Resp BP Pulse Ox 97.9 F 112 H 18 93/58 97 08/25/21 16:37 08/25/21 11:57 08/25/21 16:37 08/25/21 16:37 08/25/21 12:00 General appearance: Present: no acute distress, obese - EENT Eyes: Present: PERRL. Absent: scleral icterus - Neck Neck: Present: supple, other (No JVD) - Respiratory Respiratory effort: normal Respiratory: bilateral: CTA - Cardiovascular Rhythm: regular (Tachycardia) Heart Sounds: Present: gallop - Extremities Extremity abnormal: edema (Gross edema in lower extremities, but softer, improving.) - Abdominal General gastrointestinal: soft, non-tender, normal bowel sounds - Integumentary Integumentary: Absent: rash - Psychiatric Psychiatric: appropriate mood/affect - Neurologic Neurologic: no focal deficits HEART Score - HEART Score Troponin: Troponin T 0.013 ng/mL (0.00-0.029) 08/20/21 15:55 Results - Labs CBC & Chem 7: 08/23/21 05:13 08/26/21 04:04 Labs: Laboratory Last Values WBC 7.0 K/mm3 (4.5-11.0) 08/23/21 05:13 RBC 4.07 M/mm3 (3.65-5.03) 08/23/21 05:13 Hgb 12.6 gm/dl (11.8-15.2) 08/23/21 05:13 Hct 38.9 % (35.5-45.6) 08/23/21 05:13 MCV 95 fl (84-94) H 08/23/21 05:13 MCH 31 pg (28-32) 08/23/21 05:13 MCHC 33 % (32-34) 08/23/21 05:13 RDW 15.2 % (13.2-15.2) 08/23/21 05:13 Plt Count 150 K/mm3 (140-440) 08/23/21 05:13 Lymph % (Auto) 18.9 % (13.4-35.0) 08/20/21 08:03 [place] % (Auto) 7.0 % (0.0-7.3) 08/20/21 08:03 Eos % (Auto) 0.1 % (0.0-4.3) 08/20/21 08:03 Baso % (Auto) 0.3 % (0.0-1.8) 08/20/21 08:03 Lymph # (Auto) 1.4 K/mm3 (1.2-5.4) 08/20/21 08:03 [place] # (Auto) 0.5 K/mm3 (0.0-0.8) 08/20/21 08:03 Eos # (Auto) 0.0 K/mm3 (0.0-0.4) 08/20/21 08:03 Baso # (Auto) 0.0 K/mm3 (0.0-0.1) 08/20/21 08:03 Seg Neutrophils % 73.7 % (40.0-70.0) H 08/20/21 08:03 Seg Neutrophils # 5.4 K/mm3 (1.8-7.7) 08/20/21 08:03 PT 17.0 Sec. (12.2-14.9) H 08/20/21 08:03 INR 1.25 (0.87-1.13) H 08/20/21 08:03 Sodium 136 mmol/L (137-145) L 08/25/21 09:05 Potassium 3.9 mmol/L (3.6-5.0) 08/25/21 09:05 Chloride 95.3 mmol/L (98-107) L 08/25/21 09:05 Carbon Dioxide 30 mmol/L (22-30) 08/25/21 09:05 Anion Gap 15 mmol/L 08/25/21 09:05 BUN 23 mg/dL (9-20) H 08/25/21 09:05 Creatinine 1.3 mg/dL (0.8-1.3) 08/25/21 09:05 Estimated GFR > 60 ml/min 08/25/21 09:05 BUN/Creatinine Ratio 18 % 08/25/21 09:05 Glucose 226 mg/dL (75-100) H 08/25/21 09:05 POC Glucose 158 mg/dL (70-105) H 08/23/21 21:37 Hemoglobin A1c 7.7 % (4-6) H 08/24/21 14:58 Calcium 8.5 mg/dL (8.4-10.2) 08/25/21 09:05 Magnesium 1.90 mg/dL (1.7-2.3) 08/25/21 09:05 Total Bilirubin 1.40 mg/dL (0.1-1.2) H 08/24/21 14:58 AST 41 units/L (5-40) H 08/24/21 14:58 ALT 33 units/L (7-56) 08/24/21 14:58 Alkaline Phosphatase 100 units/L (35-129) 08/24/21 14:58 Troponin T 0.013 ng/mL (0.00-0.029) 08/20/21 15:55 NT-Pro-B Natriuret Pep 8256 pg/mL (0-450) H 08/24/21 14:58 Total Protein 8.3 g/dL (6.3-8.2) H 08/24/21 14:58 Albumin 3.8 g/dL (3.9-5) L 08/24/21 14:58 Albumin/Globulin Ratio 0.8 % 08/24/21 14:58 Smith/IV: Voiding Method Urinal Active Medications - Current Medications Current Medications: Generic Name Dose Route Start Last Admin Trade Name Freq PRN Reason Stop Dose Admin Acetaminophen 650 mg 08/24/21 13:00 08/25/21 11:58 Acetaminophen 325 Mg Tab PO 650 mg Q6H PRN Administration Pain, Mild (1-3) Aspirin 325 mg 08/21/21 10:00 08/25/21 09:04 Aspirin 325 Mg Tab PO 325 mg QDAY IJEOMA Administration Atorvastatin Calcium 40 mg 08/20/21 22:00 08/24/21 22:46 Atorvastatin 40 Mg Tab PO 40 mg QHS IJEOMA Administration Bumetanide 2 mg 08/23/21 18:00 08/25/21 17:28 Bumetanide 1 Mg/4 Ml Inj IV 2 mg BID@0600,1800 IJEOMA Administration Enoxaparin Sodium 140 mg 08/23/21 13:00 08/25/21 09:04 Enoxaparin 150 Mg/1 Ml Inj SUB-Q 140 mg Q12HR IJEOMA Administration Protocol Dobutamine HCl/Dextrose 500 mg in 250 mls @ 10.275 mls/hr 08/22/21 12:00 08/24/21 19:26 Dobutrex Drip 500mg/D5w 250ml IV 2.5 mcg/kg/min DIRECT IJEOMA 90.525 mls/hr Administration Protocol 2.5 MCG/KG/MIN Metoprolol Tartrate 25 mg 08/25/21 12:30 08/25/21 11:57 Metoprolol Tartrate 25 Mg Tab PO 25 mg BID IJEOMA Administration Midodrine 5 mg 08/22/21 10:00 08/25/21 17:27 Midodrine 5 Mg Tab PO 5 mg 0800,1800 IJEOMA Administration
[2021-08-25] MEDS: DOBUTamine/D5W 500 MG/250 ML 500 MG/250 ML BAG IV SCH (21:47)
[2021-08-26 05:35] LABS: Calcium 8.5 mg/dL (8.4-10.2)
[2021-08-26] MEDS: BUMETANIDE 1 MG/4 ML INJ IV SCH ×2 (07:39→18:18)
[2021-08-26] MEDS ORDERED: HYDROcodone/Acetaminophen 7.5-325MG-15ML ORAL LIQD PO PRN (09:00)
--- NOTE | 2021-08-26 10:10 | Progress Note ---
Assessment and Plan Echo 08/22/2021-EF 10 to 15%, severe global hypokinesis of left ventricle, left ventricle severely dilated. Right ventricle is moderately dilated, right ventricle is moderately hypokinetic, device lead is present in his right ventricle. Left and right atrium moderately dilated. Moderate tricuspid regurgitation, mild to moderate pulmonic regurgitation Continue midodrine 5mg PO BID Stop dobutamine gtt Continue IV diuresis with bumex 2mg IV BID for today. Convert to Bumex PO tomorrow due to rising creatinine. Monitor UOP to see if patient is still diuresing off dobutamine No CONSTANTINO/ARB due to soft BP and elevated creatinine Continue lovenox for anticoagulation Patient seen in conjunction with Dr. Tyler who agrees with this plan of care. Will continue to follow. - Patient Problems (1) ICD (implantable cardioverter-defibrillator) in place Current Visit: Yes Status: Chronic (2) Acute on chronic HFrEF (heart failure with reduced ejection fraction) Current Visit: No Status: Acute (3) Hyperlipidemia Current Visit: No Status: Acute Qualifiers: Hyperlipidemia type: mixed hyperlipidemia Qualified Code(s): E78.2 - Mixed hyperlipidemia (4) Cardiomyopathy Current Visit: No Status: Chronic (5) Diabetes mellitus Current Visit: No Status: Chronic Qualifiers: Diabetes mellitus type: type 2 (6) ICD (implantable cardioverter-defibrillator) in place Current Visit: No Status: Chronic (7) Nonischemic cardiomyopathy Current Visit: No Status: Chronic (8) Obesity (BMI 30.0-34.9) Current Visit: No Status: Chronic (9) Acute respiratory failure Current Visit: Yes Status: Acute (10) Renal insufficiency Current Visit: Yes Status: Acute Subjective Date of service: 08/26/21 Principal diagnosis: acute on chroninc HFrEF Interval history: Patient resting in bed in no acute distress. Paced 116 with no event monitor uop= -1100ml Objective Vital Signs Temp Pulse Resp BP Pulse Ox 08/26/21 09:40 98.6 F 18 101/66 08/26/21 07:47 18 100 08/26/21 03:52 60 94 08/26/21 03:08 98.6 F 18 110/74 08/25/21 23:08 97.9 F 19 105/79 08/25/21 22:52 18 100 08/25/21 22:00 80 08/25/21 19:12 97.6 F 52 L 19 106/74 92 08/25/21 16:37 97.9 F 18 93/58 08/25/21 12:58 17 08/25/21 12:00 19 97 08/25/21 11:58 19 08/25/21 11:57 112 H 155/85 - Physical Examination General: No Apparent Distress HEENT: Positive: PERRL Neck: Positive: trachea midline Cardiac: Positive: Regular Rhythm, Tachycardia Lungs: Positive: clear to auscultation, Normal Breath Sounds Neuro: Positive: Grossly Intact Abdomen: Positive: Soft Skin: Negative: Rash, Suspicious Lesions, Ulceration Extremities: Present: upper extr. pulses, lower extr. pulses, edema - Labs and Meds Comprehensive Metabolic Panel 08/25/21 08/26/21 Range/Units 09:05 04:04 Sodium 136 L 134 L (137-145) mmol/L Potassium 3.9 3.8 (3.6-5.0) mmol/L Chloride 95.3 L 93.6 L (98-107) mmol/L Carbon Dioxide 30 28 (22-30) mmol/L BUN 23 H 27 H (9-20) mg/dL Creatinine 1.3 1.6 H (0.8-1.3) mg/dL Glucose 226 H 132 H (75-100) mg/dL Calcium 8.5 8.5 (8.4-10.2) mg/dL - Imaging and Cardiology Echo: report reviewed - Telemetry EKG Rhythm: Paced
[2021-08-26] MEDS: MIDODRINE 5 MG TAB PO SCH ×2 (10:44→18:18)
[2021-08-26] MEDS: METOPROLOL TARTRATE 25 MG TAB PO SCH ×2 (10:44→21:19)
[2021-08-26] MEDS: ASPIRIN 325 MG TAB PO SCH (10:44)
[2021-08-26] MEDS: ENOXAPARIN 150 MG/1 ML INJ SUB-Q SCH ×2 (10:45→21:20)
--- NOTE | 2021-08-26 11:49 | Progress Note ---
Assessment and Plan Assessment and plan: Assessment and plan: 40 y/o male with PMHx of HFrEF, dilated cardiomyopathy EF 15 to 20%, pacemaker in situ, hypertension, hyperlipidemia, diabetes, and DIANN presents to the hosp ital with complaints of worsening edema, abdominal distention, shortness of breath, and 40 pound weight gain x1 month. Patient was admitted here in June for CHF exacerbation. He has been compliant with his Bumex and Aldactone however has been out of his carvedilol for the past 3 weeks. Patient states he has been noncompliant with his recommended 1 L daily fluid restriction. He also thinks he has been ingesting too much salt. Patient complains of frequent coughing and wheezing with cough. Denies fever or chest pain. Patient was scheduled to see Dr. Fisehr as outpatient on the first --Acute on chronic CHF exacerbation: Patient reporting gross lower extremity edema without significant respiratory distress - placed on Aspirin, statin, and bumax IV - ordered 2D echo-for chamber enlargement, global LV hypokinesis with LVEF 10 to 15%, normal LV wall thickness, -Cardiology consulted and evaluating, placed on dobutamine infusion, cardiology has since DC dobutamine - cardiac diet now, daily weights, monitor in's and O's - provide DVT Px with lovenox Currently being diuresed with Bumex IV, plan is to transition to p.o. Bumex and potential discharge tomorrow per cardiology --David, likely cardiorenal syndrom, resolved Follow renal function, monitor BMP --Morbid obesity Dietary and exercise recommendation when clinically stable on discharge --dietary noncompliance, counseled --Hypotension, initiated on midodrine, asymptomatic --DVT prophylaxis: on lovenox Daily clinical course: 08/21: cont diuresis, midodrine for low BP, cardiology following, Echocardiogram is pending. 08/22/21: Plan to initiate dobutamin drip as urine output not improved, cont diuresis, follow BMP 08/23/2021: Remains on dobutamine infusion, no dyspnea or PND, BP remains soft on midodrine but mentating normally and asymptomatic, gross lower extremity edema not much improvement, urine output only 1650 mL, Bumex dose increased today, creatinine 1.7 and 1.6 today, cardiology is considering transfer to heart failure centers if no improvement. Discussed the patient in cardiology. 08/24/2021: Volume overload seems to be responding with IV Bumex and leg edema started improving. Urine output is probably not accurately documented. BP much improved and the sinus tachycardia remains. Creatinine improved from 1.7-1.2 today. Remains on dobutamine drip as well as a IV Bumex. Consider Bumex drip for more aggressive diuresis. Will discuss with cardiology. 08/25/2021: Urine output 6400 mL yesterday. Next still grossly swollen but soft with improving. Patient is complaining of significant pain in the right lower extremity which appears to be more swollen than the left. Ultrasound ordered to rule out DVT. Recommended elevation. Started beta-carlos for sinus tach ycardia since of hypotension resolved. Remains on dobutamine and IV Bumex. DAVID likely from cardiorenal syndrome resolved. 08/26/2021: Continue diuresis with Bumex IV. Dobutamine has since been disc ontinued by cardiology. lower extremity Doppler completed but results still pending, will follow up results. Plan to transition patient to oral diuretics tomorrow and discharge home. History Interval history: No acute complaints this morning. Patient states that he has been diuresing adequately. Had bloody nose this morning however achieved hemostasis. Patient states that this was primarily due to dry nares No concern otherwise. Discussed patient case with cardiology this morning. Overall care plan discussed with patient and all questions answered to his satisfaction. Hospitalist Physical - Physical exam Narrative exam: Physical Exam: VITAL SIGNS: Reviewed. GENERAL: The patient appears normally developed, Vital signs as documented. Elevated BMI > 40 HEAD: No signs of head trauma. EYES: Pupils are equal. Extraocular motions intact. EARS: Hearing grossly intact. Nose: Dried blood in nares MOUTH: Oropharynx is normal. NECK: No adenopathy, no JVD. CHEST: Chest with clear breath sounds bilaterally. No wheezes, rales, or rhonchi. CARDIAC: Regular rate and rhythm. S1 and S2, without murmurs, gallops, or rubs. VASCULAR: Bilateral pitting edema. Some skin breakdown noted. Clear serous fluid noted on leg. Peripheral pulses normal and equal in all extremities. ABDOMEN: Soft, non tender and non distended. No rebound or guarding, and no masses palpated. Bowel Sounds normal. MUSCULOSKELETAL: Good range of motion of all major joints. Extremities without clubbing, cyanosis or edema. NEUROLOGIC EXAM: Alert although orientation could not be verified as patient withdrawn no focal sensory or strength deficits. PSYCHIATRIC: Mood normal. SKIN: detail exam as documented in skin assessment - Constitutional Vitals: Temp Pulse Resp BP Pulse Ox 98.6 F 60 18 101/66 100 08/26/21 09:40 08/26/21 03:52 08/26/21 09:40 08/26/21 09:40 08/26/21 07:47 General appearance: Present: no acute distress, obese HEART Score - HEART Score Troponin: Troponin T 0.013 ng/mL (0.00-0.029) 08/20/21 15:55 Results - Labs CBC & Chem 7: 08/23/21 05:13 08/26/21 04:04 Labs: Laboratory Last Values WBC 7.0 K/mm3 (4.5-11.0) 08/23/21 05:13 RBC 4.07 M/mm3 (3.65-5.03) 08/23/21 05:13 Hgb 12.6 gm/dl (11.8-15.2) 08/23/21 05:13 Hct 38.9 % (35.5-45.6) 08/23/21 05:13 MCV 95 fl (84-94) H 08/23/21 05:13 MCH 31 pg (28-32) 08/23/21 05:13 MCHC 33 % (32-34) 08/23/21 05:13 RDW 15.2 % (13.2-15.2) 08/23/21 05:13 Plt Count 150 K/mm3 (140-440) 08/23/21 05:13 Lymph % (Auto) 18.9 % (13.4-35.0) 08/20/21 08:03 [place] % (Auto) 7.0 % (0.0-7.3) 08/20/21 08:03 Eos % (Auto) 0.1 % (0.0-4.3) 08/20/21 08:03 Baso % (Auto) 0.3 % (0.0-1.8) 08/20/21 08:03 Lymph # (Auto) 1.4 K/mm3 (1.2-5.4) 08/20/21 08:03 [place] # (Auto) 0.5 K/mm3 (0.0-0.8) 08/20/21 08:03 Eos # (Auto) 0.0 K/mm3 (0.0-0.4) 08/20/21 08:03 Baso # (Auto) 0.0 K/mm3 (0.0-0.1) 08/20/21 08:03 Seg Neutrophils % 73.7 % (40.0-70.0) H 08/20/21 08:03 Seg Neutrophils # 5.4 K/mm3 (1.8-7.7) 08/20/21 08:03 PT 17.0 Sec. (12.2-14.9) H 08/20/21 08:03 INR 1.25 (0.87-1.13) H 08/20/21 08:03 Sodium 134 mmol/L (137-145) L 08/26/21 04:04 Potassium 3.8 mmol/L (3.6-5.0) 08/26/21 04:04 Chloride 93.6 mmol/L (98-107) L 08/26/21 04:04 Carbon Dioxide 28 mmol/L (22-30) 08/26/21 04:04 Anion Gap 16 mmol/L 08/26/21 04:04 BUN 27 mg/dL (9-20) H 08/26/21 04:04 Creatinine 1.6 mg/dL (0.8-1.3) H 08/26/21 04:04 Estimated GFR 58 ml/min 08/26/21 04:04 BUN/Creatinine Ratio 17 % 08/26/21 04:04 Glucose 132 mg/dL (75-100) H 08/26/21 04:04 POC Glucose 158 mg/dL (70-105) H 08/23/21 21:37 Hemoglobin A1c 7.7 % (4-6) H 08/24/21 14:58 Calcium 8.5 mg/dL (8.4-10.2) 08/26/21 04:04 Magnesium 2.10 mg/dL (1.7-2.3) 08/26/21 04:04 Total Bilirubin 1.40 mg/dL (0.1-1.2) H 08/24/21 14:58 AST 41 units/L (5-40) H 08/24/21 14:58 ALT 33 units/L (7-56) 08/24/21 14:58 Alkaline Phosphatase 100 units/L (35-129) 08/24/21 14:58 Troponin T 0.013 ng/mL (0.00-0.029) 08/20/21 15:55 NT-Pro-B Natriuret Pep 8256 pg/mL (0-450) H 08/24/21 14:58 Total Protein 8.3 g/dL (6.3-8.2) H 08/24/21 14:58 Albumin 3.8 g/dL (3.9-5) L 08/24/21 14:58 Albumin/Globulin Ratio 0.8 % 08/24/21 14:58 Smith/IV: Voiding Method Urinal Active Medications - Current Medications Current Medications: Generic Name Dose Route Start Last Admin Trade Name Freq PRN Reason Stop Dose Admin Acetaminophen 650 mg 08/24/21 13:00 08/25/21 21:48 Acetaminophen 325 Mg Tab PO 650 mg Q6H PRN Administration Pain, Mild (1-3) Hydrocodone Bitart/Acetaminophen 7.5 mg 08/26/21 09:00 Hydrocodone/Acetaminophen [id number] Oral Liqd PO Q6H PRN Pain, Moderate (4-6) Aspirin 325 mg 08/21/21 10:00 08/26/21 10:44 Aspirin 325 Mg Tab PO 325 mg QDAY IJEOMA Administration Atorvastatin Calcium 40 mg 08/20/21 22:00 08/25/21 21:48 Atorvastatin 40 Mg Tab PO 40 mg QHS IJEOMA Administration Bumetanide 2 mg 08/23/21 18:00 08/26/21 07:39 Bumetanide 1 Mg/4 Ml Inj IV 08/26/21 20:00 2 mg BID@0600,1800 IJEOMA Administration Bumetanide 1 mg 08/27/21 06:00 Bumetanide 1 Mg Tab PO 0600,1800 [facility] Enoxaparin Sodium 140 mg 08/23/21 13:00 08/26/21 10:45 Enoxaparin 150 Mg/1 Ml Inj SUB-Q 140 mg Q12HR IJEOMA Administration Protocol Metoprolol Tartrate 25 mg 08/25/21 12:30 08/26/21 10:44 Metoprolol Tartrate 25 Mg Tab PO 25 mg BID IJEOMA Administration Midodrine 5 mg 08/22/21 10:00 08/26/21 10:44 Midodrine 5 Mg Tab PO 5 mg 0800,1800 IJEOMA Administration
[2021-08-26] MEDS ORDERED: ONDANSETRON 4 MG/2 ML INJ IV PRN (12:20)
--- NOTE | 2021-08-26 12:34 | Vascular Lab Report ---
DUPLEX DOPPLER LOWER EXTREMITY VEINS, BILATERAL INDICATION / CLINICAL INFORMATION: Rule out DVT. TECHNIQUE: Duplex doppler imaging was performed through the veins of both lower extremities using venous sukh suzie and other maneuvers. COMPARISON: None available. FINDINGS: RIGHT COMMON FEMORAL VEIN: Negative. RIGHT FEMORAL VEIN: Negative. RIGHT POPLITEAL VEIN: Negative. RIGHT CALF VEINS: Negative. LEFT COMMON FEMORAL VEIN: Negative. LEFT FEMORAL VEIN: Negative. LEFT POPLITEAL VEIN: Negative. LEFT CALF VEINS: Negative. ADDITIONAL FINDINGS: None. IMPRESSION: 1. No sonographic evidence for DVT in either lower extremity. Signer Name: Ulysses Valenzuela MD Signed: 08/26/2021 12:30 PM Workstation Name: [id number]
--- NOTE | 2021-08-26 12:55 | XRay Report ---
CHEST 1 VIEW, 08/26/2021 12:41 PM CLINICAL INFORMATION/INDICATION: Shortness of breath COMPARISON: Chest radiograph, 08/20/2021 at 7:59 AM FINDINGS: SUPPORT DEVICES: Cardiac device remains in stable position. HEART: There is stable moderate enlargement of the cardiac silhouette. LUNGS/PLEURA: Mildly prominent bilateral interstitial markings are again noted and have not significa ntly changed. No large pleural effusion or pneumothorax is visualized. ADDITIONAL FINDINGS: No additional acute findings. IMPRESSION: 1. Stable enlargement of the cardiac silhouette. 2. Prominent bilateral interstitial markings suggesting mild pulmonary edema. Signer Name: Trixie Ortiz MD Signed: 08/26/2021 12:51 PM Workstation Name: [id number]
[2021-08-26] MEDS ORDERED: FUROSEMIDE 40 MG/4 ML INJ IV ONE (13:20)
[2021-08-26] MEDS: ACETAMINOPHEN 325 MG TAB PO PRN (21:19)
[2021-08-27] MEDS: BUMETANIDE 1 MG TAB PO SCH ×2 (06:51→18:00)
[2021-08-27 06:58] LABS: Calcium 8.4 mg/dL (8.4-10.2)
[2021-08-27] MEDS: MIDODRINE 5 MG TAB PO SCH ×2 (10:28→18:00)
[2021-08-27] MEDS: METOPROLOL TARTRATE 25 MG TAB PO SCH ×2 (10:28→22:20)
[2021-08-27] MEDS: ASPIRIN 325 MG TAB PO SCH (10:28)
[2021-08-27] MEDS: ENOXAPARIN 150 MG/1 ML INJ SUB-Q SCH ×4 (10:33→22:24)
--- NOTE | 2021-08-27 11:21 | Progress Note ---
Assessment and Plan With worsening renal indices, will restart dobutamine infusion again. - Patient Problems (1) Acute on chronic HFrEF (heart failure with reduced ejection fraction) Current Visit: Yes Status: Acute (2) Nonischemic dilated cardiomyopathy Current Visit: Yes Status: Chronic (3) DAVID (acute kidney injury) Current Visit: No Status: Acute (4) Hypotension Current Visit: Yes Status: Chronic (5) Right ventricular dysfunction Current Visit: Yes Status: Chronic (6) ICD (implantable cardioverter-defibrillator) in place Current Visit: Yes Status: Chronic (7) T2DM (type 2 diabetes mellitus) Current Visit: Yes Status: Chronic Subjective Date of service: 08/27/21 Principal diagnosis: acute on chroninc HFrEF Interval history: No shortness of breath this morning. However, renal indices have worsened. Objective Vital Signs Temp Pulse Resp BP Pulse Ox 08/27/21 10:24 99 08/27/21 08:42 98.5 F 109 H 18 112/85 98 08/27/21 07:06 18 100 08/27/21 03:41 98.6 F 106 H 18 103/75 91 08/26/21 23:29 98.7 F 74 20 130/77 97 08/26/21 22:35 100 08/26/21 22:04 18 100 08/26/21 22:00 88 08/26/21 19:24 98.6 F 114 H 18 98/71 97 - Physical Examination General: No Apparent Distress HEENT: Positive: EOMI, Normocephaly, Mucus Membranes Moist Neck: Positive: trachea midline, JVD/HJR, Carotid Upstroke (full) Cardiac: Positive: Reg Rate and Rhythm, S1/S2 Lungs: Positive: clear to auscultation Neuro: Positive: Grossly Intact Abdomen: Positive: Soft, Active Bowel Sounds. Negative: Tender Skin: Negative: Rash Musculoskeletal: Normal Range of Motion Extremities: Present: +3 Edema (of legs) - Labs and Meds Comprehensive Metabolic Panel 08/27/21 Range/Units 04:35 Sodium 132 L (137-145) mmol/L Potassium 4.1 (3.6-5.0) mmol/L Chloride 92.0 L (98-107) mmol/L Carbon Dioxide 26 (22-30) mmol/L BUN 38 H (9-20) mg/dL Creatinine 2.0 H (0.8-1.3) mg/dL Glucose 158 H (75-100) mg/dL Calcium 8.4 (8.4-10.2) mg/dL - Imaging and Cardiology Echo: report reviewed Pacemaker: ventricular pacing w/capt
[2021-08-27] MEDS: DOBUTamine/D5W 500 MG/250 ML 500 MG/250 ML BAG IV SCH ×2 (11:56→22:11)
--- NOTE | 2021-08-27 13:31 | Progress Note ---
Assessment and Plan Assessment and plan: Assessment and plan: 40 y/o male with PMHx of HFrEF, dilated cardiomyopathy EF 15 to 20%, pacemaker in situ, hypertension, hyperlipidemia, diabetes, and DIANN presents to the hosp ital with complaints of worsening edema, abdominal distention, shortness of breath, and 40 pound weight gain x1 month. Patient was admitted here in June for CHF exacerbation. He has been compliant with his Bumex and Aldactone however has been out of his carvedilol for the past 3 weeks. Patient states he has been noncompliant with his recommended 1 L daily fluid restriction. He also thinks he has been ingesting too much salt. Patient complains of frequent coughing and wheezing with cough. Denies fever or chest pain. Patient was scheduled to see Dr. Fisher as outpatient on the first --Acute on chronic CHF exacerbation: Patient reporting gross lower extremity edema without significant respiratory distress - placed on Aspirin, statin, and bumax IV - ordered 2D echo-for chamber enlargement, global LV hypokinesis with LVEF 10 to 15%, normal LV wall thickness, -Cardiology consulted and evaluating, placed on dobutamine infusion, cardiology has since DC dobutamine - cardiac diet now, daily weights, monitor in's and O's - provide DVT Px with lovenox Currently being diuresed with Bumex IV, plan is to transition to p.o. Bumex and potential discharge tomorrow per cardiology --David, likely cardiorenal syndrom, resolved Follow renal function, monitor BMP --Morbid obesity Dietary and exercise recommendation when clinically stable on discharge --dietary noncompliance, counseled --Hypotension, initiated on midodrine, asymptomatic --DVT prophylaxis: on lovenox Daily clinical course: 08/21: cont diuresis, midodrine for low BP, cardiology following, Echocardiogram is pending. 08/22/21: Plan to initiate dobutamin drip as urine output not improved, cont diuresis, follow BMP 08/23/2021: Remains on dobutamine infusion, no dyspnea or PND, BP remains soft on midodrine but mentating normally and asymptomatic, gross lower extremity edema not much improvement, urine output only 1650 mL, Bumex dose increased today, creatinine 1.7 and 1.6 today, cardiology is considering transfer to heart failure centers if no improvement. Discussed the patient in cardiology. 08/24/2021: Volume overload seems to be responding with IV Bumex and leg edema started improving. Urine output is probably not accurately documented. BP much improved and the sinus tachycardia remains. Creatinine improved from 1.7-1.2 today. Remains on dobutamine drip as well as a IV Bumex. Consider Bumex drip for more aggressive diuresis. Will discuss with cardiology. 08/25/2021: Urine output 6400 mL yesterday. Next still grossly swollen but soft with improving. Patient is complaining of significant pain in the right lower extremity which appears to be more swollen than the left. Ultrasound ordered to rule out DVT. Recommended elevation. Started beta-carlos for sinus tach ycardia since of hypotension resolved. Remains on dobutamine and IV Bumex. DAVID likely from cardiorenal syndrome resolved. 08/26/2021: Continue diuresis with Bumex IV. Dobutamine has since been disc ontinued by cardiology. lower extremity Doppler completed but results still pending, will follow up results. Plan to transition patient to oral diuretics tomorrow and discharge home. 08/27: restarted on dobutamine infusion per cardiology given renal function. Will continue to follow. Follow up bmp on AM renal profile. History Interval history: No acute complaints this morning. NO shortness of breath. Hospitalist Physical - Physical exam Narrative exam: Physical Exam: VITAL SIGNS: Reviewed. GENERAL: The patient appears normally developed, Vital signs as documented. Elevated BMI > 40 HEAD: No signs of head trauma. EYES: Pupils are equal. Extraocular motions intact. EARS: Hearing grossly intact. Nose: Nares clear, no obstruction MOUTH: Oropharynx is normal. NECK: No adenopathy, no JVD. CHEST: Chest with clear breath sounds bilaterally. No wheezes, rales, or rhonchi. CARDIAC: Regular rate and rhythm. S1 and S2, without murmurs, gallops, or rubs. VASCULAR: Bilateral pitting edema. Some skin breakdown noted. Clear serous fluid noted on leg. Peripheral pulses normal and equal in all extremities. ABDOMEN: Soft, non tender and non distended. No rebound or guarding, and no masses palpated. Bowel Sounds normal. MUSCULOSKELETAL: Good range of motion of all major joints. Extremities without clubbing, cyanosis or edema. NEUROLOGIC EXAM: Alert orientation x4. no focal sensory or strength deficits. PSYCHIATRIC: Mood normal. SKIN: detail exam as documented in skin assessment - Constitutional Vitals: Temp Pulse Resp BP Pulse Ox 98.5 F 109 H 18 112/85 99 08/27/21 08:42 08/27/21 08:42 08/27/21 08:42 08/27/21 08:42 08/27/21 10:24 General appearance: Present: no acute distress, obese HEART Score - HEART Score Troponin: Troponin T 0.013 ng/mL (0.00-0.029) 08/20/21 15:55 Results - Labs CBC & Chem 7: 08/23/21 05:13 08/27/21 04:35 Labs: Laboratory Last Values WBC 7.0 K/mm3 (4.5-11.0) 08/23/21 05:13 RBC 4.07 M/mm3 (3.65-5.03) 08/23/21 05:13 Hgb 12.6 gm/dl (11.8-15.2) 08/23/21 05:13 Hct 38.9 % (35.5-45.6) 08/23/21 05:13 MCV 95 fl (84-94) H 08/23/21 05:13 MCH 31 pg (28-32) 08/23/21 05:13 MCHC 33 % (32-34) 08/23/21 05:13 RDW 15.2 % (13.2-15.2) 08/23/21 05:13 Plt Count 150 K/mm3 (140-440) 08/23/21 05:13 Lymph % (Auto) 18.9 % (13.4-35.0) 08/20/21 08:03 [place] % (Auto) 7.0 % (0.0-7.3) 08/20/21 08:03 Eos % (Auto) 0.1 % (0.0-4.3) 08/20/21 08:03 Baso % (Auto) 0.3 % (0.0-1.8) 08/20/21 08:03 Lymph # (Auto) 1.4 K/mm3 (1.2-5.4) 08/20/21 08:03 [place] # (Auto) 0.5 K/mm3 (0.0-0.8) 08/20/21 08:03 Eos # (Auto) 0.0 K/mm3 (0.0-0.4) 08/20/21 08:03 Baso # (Auto) 0.0 K/mm3 (0.0-0.1) 08/20/21 08:03 Seg Neutrophils % 73.7 % (40.0-70.0) H 08/20/21 08:03 Seg Neutrophils # 5.4 K/mm3 (1.8-7.7) 08/20/21 08:03 PT 17.0 Sec. (12.2-14.9) H 08/20/21 08:03 INR 1.25 (0.87-1.13) H 08/20/21 08:03 Sodium 132 mmol/L (137-145) L 08/27/21 04:35 Potassium 4.1 mmol/L (3.6-5.0) 08/27/21 04:35 Chloride 92.0 mmol/L (98-107) L 08/27/21 04:35 Carbon Dioxide 26 mmol/L (22-30) 08/27/21 04:35 Anion Gap 18 mmol/L 08/27/21 04:35 BUN 38 mg/dL (9-20) H 08/27/21 04:35 Creatinine 2.0 mg/dL (0.8-1.3) H 08/27/21 04:35 Estimated GFR 45 ml/min 08/27/21 04:35 BUN/Creatinine Ratio 19 % 08/27/21 04:35 Glucose 158 mg/dL (75-100) H 08/27/21 04:35 POC Glucose 126 mg/dL (70-105) H 08/26/21 12:01 Hemoglobin A1c 7.7 % (4-6) H 08/24/21 14:58 Calcium 8.4 mg/dL (8.4-10.2) 08/27/21 04:35 Magnesium 2.30 mg/dL (1.7-2.3) 08/27/21 04:35 Total Bilirubin 1.40 mg/dL (0.1-1.2) H 08/24/21 14:58 AST 41 units/L (5-40) H 08/24/21 14:58 ALT 33 units/L (7-56) 08/24/21 14:58 Alkaline Phosphatase 100 units/L (35-129) 08/24/21 14:58 Troponin T 0.013 ng/mL (0.00-0.029) 08/20/21 15:55 NT-Pro-B Natriuret Pep 8256 pg/mL (0-450) H 08/24/21 14:58 Total Protein 8.3 g/dL (6.3-8.2) H 08/24/21 14:58 Albumin 3.8 g/dL (3.9-5) L 08/24/21 14:58 Albumin/Globulin Ratio 0.8 % 08/24/21 14:58 Smith/IV: Voiding Method Urinal Active Medications - Current Medications Current Medications: Generic Name Dose Route Start Last Admin Trade Name Freq PRN Reason Stop Dose Admin Acetaminophen 650 mg 08/24/21 13:00 08/26/21 21:19 Acetaminophen 325 Mg Tab PO 650 mg Q6H PRN Administration Pain, Mild (1-3) Hydrocodone Bitart/Acetaminophen 7.5 mg 08/26/21 09:00 Hydrocodone/Acetaminophen [id number] Oral Liqd PO Q6H PRN Pain, Moderate (4-6) Aspirin 325 mg 08/21/21 10:00 08/27/21 10:28 Aspirin 325 Mg Tab PO 325 mg QDAY IJEOMA Administration Atorvastatin Calcium 40 mg 08/20/21 22:00 08/26/21 21:19 Atorvastatin 40 Mg Tab PO 40 mg QHS IJEOMA Administration Bumetanide 1 mg 08/27/21 06:00 08/27/21 06:51 Bumetanide 1 Mg Tab PO 1 mg 0600,1800 IJEOMA Administration Enoxaparin Sodium 140 mg 08/23/21 13:00 08/27/21 10:34 Enoxaparin 150 Mg/1 Ml Inj SUB-Q Not Given Q12HR IJEOMA Protocol Dobutamine HCl/Dextrose 500 mg in 250 mls @ 20.4 mls/hr 08/27/21 12:00 08/27/21 11:56 Dobutrex Drip 500mg/D5w 250ml IV 5 mcg/kg/min DIRECT IJEOMA 20.4 mls/hr Administration Protocol 5 MCG/KG/MIN Metoprolol Tartrate 25 mg 08/25/21 12:30 08/27/21 10:28 Metoprolol Tartrate 25 Mg Tab PO 25 mg BID IJEOMA Administration Midodrine 5 mg 08/22/21 10:00 08/27/21 10:28 Midodrine 5 Mg Tab PO 5 mg 0800,1800 IJEOMA Administration Ondansetron HCl 4 mg 08/26/21 12:20 08/26/21 12:49 Ondansetron 4 Mg/2 Ml Inj IV 4 mg Q8H PRN Administration Nausea And Vomiting Nutrition/Malnutrition Assess - Dietary Evaluation Nutrition/Malnutrition Findings: Nutrition Notes Start: 08/26/21 16:09 Freq: Status: Active Protocol: Document 08/26/21 16:09 VALARIE (Rec: 08/26/21 16:27 VALARIE [id number]) Nutrition Notes Need for Assessment generated from: LOS Initial or Follow up Assessment Current Diagnosis Acute Kidney Injury,Diabetes, Hypertension,Respiratory Failure,Hyperlipidemia Other Pertinent Diagnosis HFrEF, ICD. Current Diet Cardiac Diet (since L 08/20). Labs/Tests Na 134, Cl 93.6, BUN 27 , Crea 1.6, Glu 132. Pertinent Medications 08/26: Nutritionally unremarkable. Height 5 ft 11 in Weight 136 kg [place] Body Weight (kg) 78.18 BMI 41.8 Weight Status Obese Subjective/Other Information RD consult for LOS. Percent of energy/protein needs met: Prescribed Cardiac Diet provides for energy/protein needs (2,230 Kcal/85 g) during LOS. Burn Absent Trauma Absent GI Symptoms None Food Allergy No Skin Integrity/Comment Clear, warm, dry. Current % PO Good (75-100%) Minimum of two criteria No #1 Nutrition Diagnosis No nutrition diagnosis at this time Comments: Pt appears to be responding well to medical treatment, and %PO intake of meals is Good ( 75-100%). Is patient on ventilator? No Is Patient Ambulatory and/or Out of Bed Yes REE-([place] [facility]-ambulatory/OOB) [ 2966.769 NUTR.MSJOOB] Kcal/Kg value to use for calculation 16 Approximate Energy Requirements Using 2176 kcal/Kg Calculation Used for Recommendations Kcal/kg Additional Notes Protein: 0.6-0.8 g/Kg; 47-62 g /day (from IBW+DAVID). Fluids 1 ml/Kcal, or as per MD . Nutrition Intervention Change Diet Order: Continue Cardiac Diet. Goal #1 Maintain body weight within +/ -3% of current BWt during LOS. Goal #2 Reach and maintain acceptable chemistry lab values during LOS. Follow-Up By: 09/08/21 Additional Comments Continue monitoring food tolerance, %PO intake of meals , Hydration, and BM.
[2021-08-28] MEDS: BUMETANIDE 1 MG TAB PO SCH ×2 (06:40→17:34)
[2021-08-28 08:09] LABS: Calcium 8.4 mg/dL (8.4-10.2)
[2021-08-28] MEDS: MIDODRINE 5 MG TAB PO SCH ×2 (08:59→17:34)
[2021-08-28] MEDS: ASPIRIN 325 MG TAB PO SCH (09:00)
[2021-08-28] MEDS: ENOXAPARIN 150 MG/1 ML INJ SUB-Q SCH ×2 (09:03→21:34)
--- NOTE | 2021-08-28 09:04 | Progress Note ---
Assessment and Plan Assessment and plan: Assessment and plan: 40 y/o male with PMHx of HFrEF, dilated cardiomyopathy EF 15 to 20%, pacemaker in situ, hypertension, hyperlipidemia, diabetes, and DIANN presents to the hosp ital with complaints of worsening edema, abdominal distention, shortness of breath, and 40 pound weight gain x1 month. Patient was admitted here in June for CHF exacerbation. He has been compliant with his Bumex and Aldactone however has been out of his carvedilol for the past 3 weeks. Patient states he has been noncompliant with his recommended 1 L daily fluid restriction. He also thinks he has been ingesting too much salt. Patient complains of frequent coughing and wheezing with cough. Denies fever or chest pain. Patient was scheduled to see Dr. Fisher as outpatient on the first --Acute on chronic CHF exacerbation: Patient reporting gross lower extremity edema without significant respiratory distress - placed on Aspirin, statin, and bumax IV - ordered 2D echo-for chamber enlargement, global LV hypokinesis with LVEF 10 to 15%, normal LV wall thickness, -Cardiology consulted and evaluating, placed on dobutamine infusion, cardiology has since DC dobutamine - cardiac diet now, daily weights, monitor in's and O's - provide DVT Px with lovenox Currently being diuresed with Bumex IV, plan is to transition to p.o. Bumex and potential discharge tomorrow per cardiology --David, likely cardiorenal syndrom, resolved Follow renal function, monitor BMP --Morbid obesity Dietary and exercise recommendation when clinically stable on discharge --dietary noncompliance, counseled --Hypotension, initiated on midodrine, asymptomatic --DVT prophylaxis: on lovenox Daily clinical course: 08/21: cont diuresis, midodrine for low BP, cardiology following, Echocardiogram is pending. 08/22/21: Plan to initiate dobutamin drip as urine output not improved, cont diuresis, follow BMP 08/23/2021: Remains on dobutamine infusion, no dyspnea or PND, BP remains soft on midodrine but mentating normally and asymptomatic, gross lower extremity edema not much improvement, urine output only 1650 mL, Bumex dose increased today, creatinine 1.7 and 1.6 today, cardiology is considering transfer to heart failure centers if no improvement. Discussed the patient in cardiology. 08/24/2021: Volume overload seems to be responding with IV Bumex and leg edema started improving. Urine output is probably not accurately documented. BP much improved and the sinus tachycardia remains. Creatinine improved from 1.7-1.2 today. Remains on dobutamine drip as well as a IV Bumex. Consider Bumex drip for more aggressive diuresis. Will discuss with cardiology. 08/25/2021: Urine output 6400 mL yesterday. Next still grossly swollen but soft with improving. Patient is complaining of significant pain in the right lower extremity which appears to be more swollen than the left. Ultrasound ordered to rule out DVT. Recommended elevation. Started beta-carlos for sinus tach ycardia since of hypotension resolved. Remains on dobutamine and IV Bumex. DAVID likely from cardiorenal syndrome resolved. 08/26/2021: Continue diuresis with Bumex IV. Dobutamine has since been disc ontinued by cardiology. lower extremity Doppler completed but results still pending, will follow up results. Plan to transition patient to oral diuretics tomorrow and discharge home. 08/27: restarted on dobutamine infusion per cardiology given renal function. Will continue to follow. Follow up bmp on AM renal profile. 08/28: Still on dobutamine infusion, Renal function has improved today. Corbin hoyos final cardiology recommendations. History Interval history: Resting comfortably on exam. No acute complaints. Is concerned about lower extremity edema. Counseled patient on strategies to reduce amount of edema and reassured patient as well. He denied any dizziness, headache, chest pain, shortness of breath. He is able to ambulate without any issues. Hospitalist Physical - Physical exam Narrative exam: Physical Exam: VITAL SIGNS: Reviewed. GENERAL: The patient appears normally developed, Vital signs as documented. Elevated BMI > 40 HEAD: No signs of head trauma. EYES: Pupils are equal. Extraocular motions intact. EARS: Hearing grossly intact. Nose: Nares clear, no obstruction MOUTH: Oropharynx is normal. NECK: No adenopathy, no JVD. CHEST: Chest with clear breath sounds bilaterally. No wheezes, rales, or rhonchi. CARDIAC: Regular rate and rhythm. S1 and S2, without murmurs, gallops, or rubs. VASCULAR: Bilateral pitting edema (very slight interval improvement). Some skin breakdown noted. Clear serous fluid noted on leg. Peripheral pulses normal and equal in all extremities. ABDOMEN: Soft, non tender and non distended. No rebound or guarding, and no masses palpated. Bowel Sounds normal. MUSCULOSKELETAL: Good range of motion of all major joints. Extremities without clubbing, cyanosis or edema. NEUROLOGIC EXAM: Alert orientation x4. no focal sensory or strength deficits. PSYCHIATRIC: Mood normal. SKIN: detail exam as documented in skin assessment - Constitutional Vitals: Temp Pulse Resp BP Pulse Ox 98.1 F 58 L 18 105/75 90 08/28/21 07:50 08/28/21 07:50 08/28/21 07:50 08/28/21 07:50 08/28/21 07:50 General appearance: Present: no acute distress, obese HEART Score - HEART Score Troponin: Troponin T 0.013 ng/mL (0.00-0.029) 08/20/21 15:55 Results - Labs CBC & Chem 7: 08/23/21 05:13 08/28/21 07:34 Labs: Laboratory Last Values WBC 7.0 K/mm3 (4.5-11.0) 08/23/21 05:13 RBC 4.07 M/mm3 (3.65-5.03) 08/23/21 05:13 Hgb 12.6 gm/dl (11.8-15.2) 08/23/21 05:13 Hct 38.9 % (35.5-45.6) 08/23/21 05:13 MCV 95 fl (84-94) H 08/23/21 05:13 MCH 31 pg (28-32) 08/23/21 05:13 MCHC 33 % (32-34) 08/23/21 05:13 RDW 15.2 % (13.2-15.2) 08/23/21 05:13 Plt Count 150 K/mm3 (140-440) 08/23/21 05:13 Lymph % (Auto) 18.9 % (13.4-35.0) 08/20/21 08:03 [place] % (Auto) 7.0 % (0.0-7.3) 08/20/21 08:03 Eos % (Auto) 0.1 % (0.0-4.3) 08/20/21 08:03 Baso % (Auto) 0.3 % (0.0-1.8) 08/20/21 08:03 Lymph # (Auto) 1.4 K/mm3 (1.2-5.4) 08/20/21 08:03 [place] # (Auto) 0.5 K/mm3 (0.0-0.8) 08/20/21 08:03 Eos # (Auto) 0.0 K/mm3 (0.0-0.4) 08/20/21 08:03 Baso # (Auto) 0.0 K/mm3 (0.0-0.1) 08/20/21 08:03 Seg Neutrophils % 73.7 % (40.0-70.0) H 08/20/21 08:03 Seg Neutrophils # 5.4 K/mm3 (1.8-7.7) 08/20/21 08:03 PT 17.0 Sec. (12.2-14.9) H 08/20/21 08:03 INR 1.25 (0.87-1.13) H 08/20/21 08:03 Sodium 132 mmol/L (137-145) L 08/28/21 07:34 Potassium 3.8 mmol/L (3.6-5.0) 08/28/21 07:34 Chloride 92.5 mmol/L (98-107) L 08/28/21 07:34 Carbon Dioxide 28 mmol/L (22-30) 08/28/21 07:34 Anion Gap 15 mmol/L 08/28/21 07:34 BUN 35 mg/dL (9-20) H 08/28/21 07:34 Creatinine 1.7 mg/dL (0.8-1.3) H 08/28/21 07:34 Estimated GFR 54 ml/min 08/28/21 07:34 BUN/Creatinine Ratio 21 % 08/28/21 07:34 Glucose 195 mg/dL (75-100) H 08/28/21 07:34 POC Glucose 126 mg/dL (70-105) H 08/26/21 12:01 Hemoglobin A1c 7.7 % (4-6) H 08/24/21 14:58 Calcium 8.4 mg/dL (8.4-10.2) 08/28/21 07:34 Magnesium 2.10 mg/dL (1.7-2.3) 08/28/21 07:34 Total Bilirubin 1.40 mg/dL (0.1-1.2) H 08/24/21 14:58 AST 41 units/L (5-40) H 08/24/21 14:58 ALT 33 units/L (7-56) 08/24/21 14:58 Alkaline Phosphatase 100 units/L (35-129) 08/24/21 14:58 Troponin T 0.013 ng/mL (0.00-0.029) 08/20/21 15:55 NT-Pro-B Natriuret Pep 8256 pg/mL (0-450) H 08/24/21 14:58 Total Protein 8.3 g/dL (6.3-8.2) H 08/24/21 14:58 Albumin 3.8 g/dL (3.9-5) L 08/24/21 14:58 Albumin/Globulin Ratio 0.8 % 08/24/21 14:58 Smith/IV: Voiding Method Urinal Active Medications - Current Medications Current Medications: Generic Name Dose Route Start Last Admin Trade Name Freq PRN Reason Stop Dose Admin Acetaminophen 650 mg 08/24/21 13:00 08/26/21 21:19 Acetaminophen 325 Mg Tab PO 650 mg Q6H PRN Administration Pain, Mild (1-3) Hydrocodone Bitart/Acetaminophen 7.5 mg 08/26/21 09:00 Hydrocodone/Acetaminophen [id number] Oral Liqd PO Q6H PRN Pain, Moderate (4-6) Aspirin 325 mg 08/21/21 10:00 08/28/21 09:00 Aspirin 325 Mg Tab PO 325 mg QDAY IJEOMA Administration Atorvastatin Calcium 40 mg 08/20/21 22:00 08/27/21 22:19 Atorvastatin 40 Mg Tab PO 40 mg QHS IJEOMA Administration Bumetanide 1 mg 08/27/21 06:00 08/28/21 06:40 Bumetanide 1 Mg Tab PO 1 mg 0600,1800 IJEOMA Administration Enoxaparin Sodium 140 mg 08/23/21 13:00 08/28/21 09:03 Enoxaparin 150 Mg/1 Ml Inj SUB-Q Not Given Q12HR IJEOMA Protocol Dobutamine HCl/Dextrose 500 mg in 250 mls @ 20.4 mls/hr 08/27/21 12:00 08/27/21 22:11 Dobutrex Drip 500mg/D5w 250ml IV 5 mcg/kg/min DIRECT IJEOMA 20.4 mls/hr Administration Protocol 5 MCG/KG/MIN Metoprolol Tartrate 25 mg 08/25/21 12:30 08/27/21 22:20 Metoprolol Tartrate 25 Mg Tab PO Not Given BID IJEOMA Midodrine 5 mg 08/22/21 10:00 08/28/21 08:59 Midodrine 5 Mg Tab PO 5 mg 0800,1800 IJEOMA Administration Ondansetron HCl 4 mg 08/26/21 12:20 08/26/21 12:49 Ondansetron 4 Mg/2 Ml Inj IV 4 mg Q8H PRN Administration Nausea And Vomiting Nutrition/Malnutrition Assess - Dietary Evaluation Nutrition/Malnutrition Findings: Nutrition Notes Start: 08/26/21 16:09 Freq: Status: Active Protocol: Document 08/26/21 16:09 VALARIE (Rec: 08/26/21 16:27 VALARIE [id number]) Nutrition Notes Need for Assessment generated from: LOS Initial or Follow up Assessment Current Diagnosis Acute Kidney Injury,Diabetes, Hypertension,Respiratory Failure,Hyperlipidemia Other Pertinent Diagnosis HFrEF, ICD. Current Diet Cardiac Diet (since L 08/20). Labs/Tests Na 134, Cl 93.6, BUN 27 , Crea 1.6, Glu 132. Pertinent Medications 08/26: Nutritionally unremarkable. Height 5 ft 11 in Weight 136 kg [place] Body Weight (kg) 78.18 BMI 41.8 Weight Status Obese Subjective/Other Information RD consult for LOS. Percent of energy/protein needs met: Prescribed Cardiac Diet provides for energy/protein needs (2,230 Kcal/85 g) during LOS. Burn Absent Trauma Absent GI Symptoms None Food Allergy No Skin Integrity/Comment Clear, warm, dry. Current % PO Good (75-100%) Minimum of two criteria No #1 Nutrition Diagnosis No nutrition diagnosis at this time Comments: Pt appears to be responding well to medical treatment, and %PO intake of meals is Good ( 75-100%). Is patient on ventilator? No Is Patient Ambulatory and/or Out of Bed Yes REE-([place] [facility]-ambulatory/OOB) [ 2966.769 NUTR.MSJOOB] Kcal/Kg value to use for calculation 16 Approximate Energy Requirements Using 2176 kcal/Kg Calculation Used for Recommendations Kcal/kg Additional Notes Protein: 0.6-0.8 g/Kg; 47-62 g /day (from IBW+DAVID). Fluids 1 ml/Kcal, or as per MD . Nutrition Intervention Change Diet Order: Continue Cardiac Diet. Goal #1 Maintain body weight within +/ -3% of current BWt during LOS. Goal #2 Reach and maintain acceptable chemistry lab values during LOS. Follow-Up By: 09/08/21 Additional Comments Continue monitoring food tolerance, %PO intake of meals , Hydration, and BM.
[2021-08-28] MEDS: METOPROLOL TARTRATE 25 MG TAB PO SCH ×2 (10:04→21:35)
[2021-08-28] MEDS: DOBUTamine/D5W 500 MG/250 ML 500 MG/250 ML BAG IV SCH (11:03)
--- NOTE | 2021-08-28 11:37 | Electrocardiograph Report ---
[facility] Test Date: 2021-08-26 Test Time: 12:10:30 Pat Name: SHARLA MAST Department: Room: A458 1 Gender: M Maturity Checker: FIDEL : [id number] Requested By: HUNG ZAVALA Order Number: [id number] Reading MD: Saji Quinones Measurements Intervals [place] Rate: 104 P: 60 SC: 62 QRS: 156 QRSD: 122 T: 46 QT: 393 QTc: 517 Interpretive Statements Atrial-sensed ventricular-paced complexes Biatrial enlargement Prolonged QT interval Compared to ECG 08/20/2021 07:52:47 Prolonged QT interval now present Sinus tachycardia no longer present Ventricular premature complex(es) no longer present Electronically Signed On 08-28-2021 11:37:29 EST by Saji Quinones
--- NOTE | 2021-08-28 14:06 | Progress Note ---
Assessment and Plan Continue dobutamine drip for now. It appears that the patient has cardiorenal syndrome and may end up requiring outpatient inotropic support or ventricular assist. - Patient Problems (1) Acute on chronic HFrEF (heart failure with reduced ejection fraction) Current Visit: Yes Status: Acute (2) Nonischemic dilated cardiomyopathy Current Visit: Yes Status: Chronic (3) DAVID (acute kidney injury) Current Visit: No Status: Acute (4) Hypotension Current Visit: Yes Status: Chronic (5) Right ventricular dysfunction Current Visit: Yes Status: Chronic (6) ICD (implantable cardioverter-defibrillator) in place Current Visit: Yes Status: Chronic (7) T2DM (type 2 diabetes mellitus) Current Visit: Yes Status: Chronic Subjective Date of service: 08/28/21 Principal diagnosis: acute on chronic HFrEF Interval history: No new complaints this morning. Renal indices appear to be improving since re- initiation of dobutamine yesterday. Objective Vital Signs Temp Pulse Pulse Pulse Resp BP Pulse Ox 08/28/21 11:06 100 08/28/21 10:00 60 60 16 98 08/28/21 07:50 98.1 F 58 L 18 105/75 90 08/28/21 03:27 98.3 F 116 H 18 116/83 93 08/27/21 23:19 97.5 F L 114 H 19 104/62 94 08/27/21 22:00 110 H 110 H 110 H 18 100 08/27/21 19:21 97.8 F 112 H 18 118/76 94 08/27/21 17:14 98.0 F 107 H 18 134/107 99 - Physical Examination General: No Apparent Distress HEENT: Positive: EOMI, Normocephaly, Mucus Membranes Moist Neck: Positive: trachea midline, JVD/HJR, Carotid Upstroke (full) Cardiac: Positive: Reg Rate and Rhythm, S1/S2 Lungs: Positive: clear to auscultation Neuro: Positive: Grossly Intact Abdomen: Positive: Soft, Active Bowel Sounds. Negative: Tender Skin: Negative: Rash Musculoskeletal: Normal Range of Motion Extremities: Present: +3 Edema (of legs) - Labs and Meds Comprehensive Metabolic Panel 08/28/21 Range/Units 07:34 Sodium 132 L (137-145) mmol/L Potassium 3.8 (3.6-5.0) mmol/L Chloride 92.5 L (98-107) mmol/L Carbon Dioxide 28 (22-30) mmol/L BUN 35 H (9-20) mg/dL Creatinine 1.7 H (0.8-1.3) mg/dL Glucose 195 H (75-100) mg/dL Calcium 8.4 (8.4-10.2) mg/dL Pacemaker: ventricular pacing w/capt
[2021-08-29] MEDS: DOBUTamine/D5W 500 MG/250 ML 500 MG/250 ML BAG IV SCH ×2 (01:10→13:30)
[2021-08-29] MEDS: BUMETANIDE 1 MG TAB PO SCH (06:46)
[2021-08-29 06:58] LABS: BUN/Creatinine Ratio 21; Blood Urea Nitrogen 30 mg/dL (9-20); Calcium 8.6 mg/dL (8.4-10.2); Hemolysis Index 10
[2021-08-29] MEDS: ENOXAPARIN 150 MG/1 ML INJ SUB-Q SCH ×2 (09:35→21:49)
[2021-08-29] MEDS: MIDODRINE 5 MG TAB PO SCH ×2 (10:00→17:02)
[2021-08-29] MEDS: ASPIRIN 325 MG TAB PO SCH (10:00)
[2021-08-29] MEDS: METOPROLOL TARTRATE 25 MG TAB PO SCH ×2 (10:01→21:48)
--- NOTE | 2021-08-29 14:13 | Progress Note ---
Assessment and Plan Echo 08/22/2021-EF 10 to 15%, severe global hypokinesis of left ventricle, left ventricle severely dilated. Right ventricle is moderately dilated, right ventricle is moderately hypokinetic, device lead is present in his right ventricle. Left and right atrium moderately dilated. Moderate tricuspid regurgitation, mild to moderate pulmonic regurgitation Continue midodrine 5mg PO BID Contninue dobutamine gtt Stop Bumex 1m PO BID and convert to bumex 2mg IV BID. No CONSTANTINO/ARB due to soft BP and elevated creatinine Continue lovenox for anticoagulation Patient seen in conjunction with Dr. Fisher who agrees with this plan of care. Will continue to follow. - Patient Problems (1) ICD (implantable cardioverter-defibrillator) in place Current Visit: Yes Status: Chronic (2) Acute on chronic HFrEF (heart failure with reduced ejection fraction) Current Visit: No Status: Acute (3) Hyperlipidemia Current Visit: No Status: Acute Qualifiers: Hyperlipidemia type: mixed hyperlipidemia Qualified Code(s): E78.2 - Mixed hyperlipidemia (4) Cardiomyopathy Current Visit: No Status: Chronic (5) Diabetes mellitus Current Visit: No Status: Chronic Qualifiers: Diabetes mellitus type: type 2 (6) ICD (implantable cardioverter-defibrillator) in place Current Visit: Yes Status: Chronic (7) Nonischemic cardiomyopathy Current Visit: No Status: Chronic (8) Obesity (BMI 30.0-34.9) Current Visit: No Status: Chronic (9) Acute respiratory failure Current Visit: Yes Status: Acute (10) Renal insufficiency Current Visit: Yes Status: Acute Subjective Date of service: 08/29/21 Principal diagnosis: acute on chronic HFrEF Interval history: Patient resting in bed in no acute distress. Paced 112 with no event monitor uop= -660ml Objective Vital Signs Temp Pulse Resp BP Pulse Ox 08/29/21 08:07 97.7 F 111 H 18 107/84 97 08/29/21 07:59 16 98 08/29/21 03:35 98.1 F 112 H 18 120/66 90 08/28/21 23:24 97.4 F L 69 18 91/72 94 08/28/21 22:00 80 16 98 08/28/21 19:17 98.9 F 117 H 18 112/74 93 08/28/21 16:43 98.3 F 118 H 18 133/85 94 - Physical Examination General: No Apparent Distress HEENT: Positive: EOMI, Normocephaly, Mucus Membranes Moist Neck: Positive: trachea midline, JVD/HJR, Carotid Upstroke (full) Cardiac: Positive: Regular Rhythm, Tachycardia Lungs: Positive: Decreased Breath Sounds Neuro: Positive: Grossly Intact Abdomen: Positive: Soft, Active Bowel Sounds. Negative: Tender Skin: Negative: Rash Musculoskeletal: Normal Range of Motion Extremities: Present: +3 Edema (of legs) - Labs and Meds Comprehensive Metabolic Panel 08/29/21 Range/Units 04:27 Sodium 133 L (137-145) mmol/L Potassium 4.2 (3.6-5.0) mmol/L Chloride 92.5 L (98-107) mmol/L Carbon Dioxide 28 (22-30) mmol/L BUN 30 H (9-20) mg/dL Creatinine 1.4 H (0.8-1.3) mg/dL Glucose 173 H (75-100) mg/dL Calcium 8.6 (8.4-10.2) mg/dL - Imaging and Cardiology Echo: report reviewed - Telemetry EKG Rhythm: Paced Pacemaker: ventricular pacing w/capt
--- NOTE | 2021-08-29 16:00 | Progress Note ---
Assessment and Plan Assessment and plan: Assessment and plan: 40 y/o male with PMHx of HFrEF, dilated cardiomyopathy EF 15 to 20%, pacemaker in situ, hypertension, hyperlipidemia, diabetes, and DIANN presents to the hosp ital with complaints of worsening edema, abdominal distention, shortness of breath, and 40 pound weight gain x1 month. Patient was admitted here in June for CHF exacerbation. He has been compliant with his Bumex and Aldactone however has been out of his carvedilol for the past 3 weeks. Patient states he has been noncompliant with his recommended 1 L daily fluid restriction. He also thinks he has been ingesting too much salt. Patient complains of frequent coughing and wheezing with cough. Denies fever or chest pain. Patient was scheduled to see Dr. Fisher as outpatient on the first --Acute on chronic CHF exacerbation: Patient reporting gross lower extremity edema without significant respiratory distress - placed on Aspirin, statin, and bumax IV - ordered 2D echo-for chamber enlargement, global LV hypokinesis with LVEF 10 to 15%, normal LV wall thickness, -Cardiology consulted and evaluating, placed on dobutamine infusion, cardiology has since DC dobutamine - cardiac diet now, daily weights, monitor in's and O's - continue therapeutic lovenox per cardiology Currently being diuresed with Bumex IV, plan is to transition to p.o. Bumex and potential discharge tomorrow per cardiology - continue midodrine --David, likely cardiorenal syndrom, resolved Follow renal function, monitor BMP --Morbid obesity Dietary and exercise recommendation when clinically stable on discharge --dietary noncompliance, counseled --Hypotension, initiated on midodrine, asymptomatic --DVT prophylaxis: on lovenox Daily clinical course: 08/21: cont diuresis, midodrine for low BP, cardiology following, Echocardiogram is pending. 08/22/21: Plan to initiate dobutamin drip as urine output not improved, cont diuresis, follow BMP 08/23/2021: Remains on dobutamine infusion, no dyspnea or PND, BP remains soft on midodrine but mentating normally and asymptomatic, gross lower extremity edema not much improvement, urine output only 1650 mL, Bumex dose increased today, c reatinine 1.7 and 1.6 today, cardiology is considering transfer to heart failure centers if no improvement. Discussed the patient in cardiology. 08/24/2021: Volume overload seems to be responding with IV Bumex and leg edema started improving. Urine output is probably not accurately documented. BP much improved and the sinus tachycardia remains. Creatinine improved from 1.7-1.2 today. Remains on dobutamine drip as well as a IV Bumex. Consider Bumex drip for more aggressive diuresis. Will discuss with cardiology. 08/25/2021: Urine output 6400 mL yesterday. Next still grossly swollen but soft with improving. Patient is complaining of significant pain in the right lower extremity which appears to be more swollen than the left. Ultrasound ordered to rule out DVT. Recommended elevation. Started beta-carlos for sinus tachycardia since of hypotension resolved. Remains on dobutamine and IV Bumex. DAVID likely from cardiorenal syndrome resolved. 08/26/2021: Continue diuresis with Bumex IV. Dobutamine has since been discontinued by cardiology. lower extremity Doppler completed but results still pending, will follow up results. Plan to transition patient to oral diuretics tomorrow and discharge home. 08/27: restarted on dobutamine infusion per cardiology given renal function. Will continue to follow. Follow up bmp on AM renal profile. 08/28: Still on dobutamine infusion, Renal function has improved today. Will follow final cardiology recommendations. 08/29: worsening lower extremity edema. Diuretics changed to Bumex 2 mg IV bid per cardiology. History Interval history: Unfortunately patient has worsening of lower extremity edema. Discussed case with cardiology will be increasing diuretic dose Hospitalist Physical - Physical exam Narrative exam: Physical Exam: VITAL SIGNS: Reviewed. GENERAL: The patient appears normally developed, Vital signs as documented. Elevated BMI > 40 HEAD: No signs of head trauma. EYES: Pupils are equal. Extraocular motions intact. EARS: Hearing grossly intact. Nose: Nares clear, no obstruction MOUTH: Oropharynx is normal. NECK: No adenopathy, no JVD. CHEST: Chest with clear breath sounds bilaterally. No wheezes, rales, or rhonchi. CARDIAC: Regular rate and rhythm. S1 and S2, without murmurs, gallops, or rubs. VASCULAR: Bilateral pitting edema worsened on interval exam. Edema extends all the way up to side of hip.. Some skin breakdown noted. Clear serous fluid noted on leg. Peripheral pulses normal and equal in all extremities. ABDOMEN: Soft, non tender and non distended. No rebound or guarding, and no masses palpated. Bowel Sounds normal. MUSCULOSKELETAL: Good range of motion of all major joints. Extremities without clubbing, cyanosis or edema. NEUROLOGIC EXAM: Alert orientation x4. no focal sensory or strength deficits. PSYCHIATRIC: Mood normal. SKIN: Skin is tight on lower extremities from edema. Detail exam as documented in skin assessment - Constitutional Vitals: Temp Pulse Resp BP Pulse Ox 97.7 F 111 H 18 107/84 97 08/29/21 08:07 08/29/21 08:07 08/29/21 08:07 08/29/21 08:07 08/29/21 08:07 General appearance: Present: no acute distress, obese HEART Score - HEART Score Troponin: Troponin T 0.013 ng/mL (0.00-0.029) 08/20/21 15:55 Results - Labs CBC & Chem 7: 08/23/21 05:13 08/29/21 04:27 Labs: Laboratory Last Values WBC 7.0 K/mm3 (4.5-11.0) 08/23/21 05:13 RBC 4.07 M/mm3 (3.65-5.03) 08/23/21 05:13 Hgb 12.6 gm/dl (11.8-15.2) 08/23/21 05:13 Hct 38.9 % (35.5-45.6) 08/23/21 05:13 MCV 95 fl (84-94) H 08/23/21 05:13 MCH 31 pg (28-32) 08/23/21 05:13 MCHC 33 % (32-34) 08/23/21 05:13 RDW 15.2 % (13.2-15.2) 08/23/21 05:13 Plt Count 150 K/mm3 (140-440) 08/23/21 05:13 Lymph % (Auto) 18.9 % (13.4-35.0) 08/20/21 08:03 [place] % (Auto) 7.0 % (0.0-7.3) 08/20/21 08:03 Eos % (Auto) 0.1 % (0.0-4.3) 08/20/21 08:03 Baso % (Auto) 0.3 % (0.0-1.8) 08/20/21 08:03 Lymph # (Auto) 1.4 K/mm3 (1.2-5.4) 08/20/21 08:03 [place] # (Auto) 0.5 K/mm3 (0.0-0.8) 08/20/21 08:03 Eos # (Auto) 0.0 K/mm3 (0.0-0.4) 08/20/21 08:03 Baso # (Auto) 0.0 K/mm3 (0.0-0.1) 08/20/21 08:03 Seg Neutrophils % 73.7 % (40.0-70.0) H 08/20/21 08:03 Seg Neutrophils # 5.4 K/mm3 (1.8-7.7) 08/20/21 08:03 PT 17.0 Sec. (12.2-14.9) H 08/20/21 08:03 INR 1.25 (0.87-1.13) H 08/20/21 08:03 Sodium 133 mmol/L (137-145) L 08/29/21 04:27 Potassium 4.2 mmol/L (3.6-5.0) 08/29/21 04:27 Chloride 92.5 mmol/L (98-107) L 08/29/21 04:27 Carbon Dioxide 28 mmol/L (22-30) 08/29/21 04:27 Anion Gap 17 mmol/L 08/29/21 04:27 BUN 30 mg/dL (9-20) H 08/29/21 04:27 Creatinine 1.4 mg/dL (0.8-1.3) H 08/29/21 04:27 Estimated GFR > 60 ml/min 08/29/21 04:27 BUN/Creatinine Ratio 21 % 08/29/21 04:27 Glucose 173 mg/dL (75-100) H 08/29/21 04:27 POC Glucose 142 mg/dL (70-105) H 08/29/21 08:09 Hemoglobin A1c 7.7 % (4-6) H 08/24/21 14:58 Calcium 8.6 mg/dL (8.4-10.2) 08/29/21 04:27 Magnesium 2.40 mg/dL (1.7-2.3) H 08/29/21 04:27 Total Bilirubin 1.40 mg/dL (0.1-1.2) H 08/24/21 14:58 AST 41 units/L (5-40) H 08/24/21 14:58 ALT 33 units/L (7-56) 08/24/21 14:58 Alkaline Phosphatase 100 units/L (35-129) 08/24/21 14:58 Troponin T 0.013 ng/mL (0.00-0.029) 08/20/21 15:55 NT-Pro-B Natriuret Pep 8256 pg/mL (0-450) H 08/24/21 14:58 Total Protein 8.3 g/dL (6.3-8.2) H 08/24/21 14:58 Albumin 3.8 g/dL (3.9-5) L 08/24/21 14:58 Albumin/Globulin Ratio 0.8 % 08/24/21 14:58 Smith/IV: Voiding Method Urinal Active Medications - Current Medications Current Medications: Generic Name Dose Route Start Last Admin Trade Name Freq PRN Reason Stop Dose Admin Acetaminophen 650 mg 08/24/21 13:00 08/26/21 21:19 Acetaminophen 325 Mg Tab PO 650 mg Q6H PRN Administration Pain, Mild (1-3) Hydrocodone Bitart/Acetaminophen 7.5 mg 08/26/21 09:00 Hydrocodone/Acetaminophen [id number] Oral Liqd PO Q6H PRN Pain, Moderate (4-6) Aspirin 325 mg 08/21/21 10:00 08/29/21 10:00 Aspirin 325 Mg Tab PO 325 mg QDAY IJEOMA Administration Atorvastatin Calcium 40 mg 08/20/21 22:00 08/28/21 21:35 Atorvastatin 40 Mg Tab PO 40 mg QHS [facility] Administration Bumetanide 2 mg 08/29/21 12:10 Bumetanide 1 Mg/4 Ml Inj IV BID@0600,1800 [facility] Enoxaparin Sodium 140 mg 08/23/21 13:00 08/29/21 09:35 Enoxaparin 150 Mg/1 Ml Inj SUB-Q Not Given Q12HR [facility] Protocol Dobutamine HCl/Dextrose 500 mg in 250 mls @ 20.4 mls/hr 08/27/21 12:00 08/29/21 13:30 Dobutrex Drip 500mg/D5w 250ml IV 5 mcg/kg/min DIRECT IJEOMA 20.4 mls/hr Administration Protocol 5 MCG/KG/MIN Metoprolol Tartrate 12.5 mg 08/28/21 22:00 08/29/21 10:01 Metoprolol Tartrate 25 Mg Tab PO 12.5 mg BID IJEOMA Administration Midodrine 5 mg 08/22/21 10:00 08/29/21 10:00 Midodrine 5 Mg Tab PO 5 mg 0800,1800 IJEOMA Administration Ondansetron HCl 4 mg 08/26/21 12:20 08/26/21 12:49 Ondansetron 4 Mg/2 Ml Inj IV 4 mg Q8H PRN Administration Nausea And Vomiting Nutrition/Malnutrition Assess - Dietary Evaluation Nutrition/Malnutrition Findings: Nutrition Notes Start: 08/26/21 16:09 Freq: Status: Active Protocol: Document 08/26/21 16:09 VALARIE (Rec: 08/26/21 16:27 VALARIE [id number]) Nutrition Notes Need for Assessment generated from: LOS Initial or Follow up Assessment Current Diagnosis Acute Kidney Injury,Diabetes, Hypertension,Respiratory Failure,Hyperlipidemia Other Pertinent Diagnosis HFrEF, ICD. Current Diet Cardiac Diet (since L 08/20). Labs/Tests Na 134, Cl 93.6, BUN 27 , Crea 1.6, Glu 132. Pertinent Medications 08/26: Nutritionally unremarkable. Height 5 ft 11 in Weight 136 kg [place] Body Weight (kg) 78.18 BMI 41.8 Weight Status Obese Subjective/Other Information RD consult for LOS. Percent of energy/protein needs met: Prescribed Cardiac Diet provides for energy/protein needs (2,230 Kcal/85 g) during LOS. Burn Absent Trauma Absent GI Symptoms None Food Allergy No Skin Integrity/Comment Clear, warm, dry. Current % PO Good (75-100%) Minimum of two criteria No #1 Nutrition Diagnosis No nutrition diagnosis at this time Comments: Pt appears to be responding well to medical treatment, and %PO intake of meals is Good ( 75-100%). Is patient on ventilator? No Is Patient Ambulatory and/or Out of Bed Yes REE-(Dougherty-St. Jeor-ambulatory/OOB) [ 2966.769 [id number]] Kcal/Kg value to use for calculation 16 Approximate Energy Requirements Using 2176 kcal/Kg Calculation Used for Recommendations Kcal/kg Additional Notes Protein: 0.6-0.8 g/Kg; 47-62 g /day (from IBW+DAVID). Fluids 1 ml/Kcal, or as per MD . Nutrition Intervention Change Diet Order: Continue Cardiac Diet. Goal #1 Maintain body weight within +/ -3% of current BWt during LOS. Goal #2 Reach and maintain acceptable chemistry lab values during LOS. Follow-Up By: 09/08/21 Additional Comments Continue monitoring food tolerance, %PO intake of meals , Hydration, and BM.
[2021-08-29] MEDS: BUMETANIDE 1 MG/4 ML INJ IV SCH ×2 (16:34→17:02)
[2021-08-29] MEDS: ACETAMINOPHEN 325 MG TAB PO PRN (21:48)
[2021-08-30 06:13] LABS: Hemoglobin 11.2 gm/dl (11.8-15.2); Mean Corpuscular HGB Conc 33 % (32-34); Mean Corpuscular Volume 93 fl (84-94); Platelet Count 135 K/mm3 (140-440); Red Blood Count 3.64 M/mm3 (3.65-5.03); Red Cell Distribution Width 15.2 % (13.2-15.2)
[2021-08-30 06:37] LABS: BUN/Creatinine Ratio 19; Blood Urea Nitrogen 26 mg/dL (9-20); Calcium 8.7 mg/dL (8.4-10.2); Hemolysis Index 2
[2021-08-30] MEDS: BUMETANIDE 1 MG/4 ML INJ IV SCH ×2 (07:00→20:01)
--- NOTE | 2021-08-30 08:30 | Progress Note ---
Assessment and Plan Assessment and plan: 40 y/o male with PMHx of HFrEF, dilated cardiomyopathy EF 15 to 20%, pacemaker in situ, hypertension, hyperlipidemia, diabetes, and DIANN presents to the hospital with complaints of worsening edema, abdominal distention, shortness of breath, and 40 pound weight gain x1 month. Patient was admitted here in June for CHF exacerbation. He has been compliant with his Bumex and Aldactone however has been out of his carvedilol for the past 3 weeks. Patient states he has been noncompliant with his recommended 1 L daily fluid restriction. He also thinks he has been ingesting too much salt. Patient complains of frequent coughing and wheezing with cough. Denies fever or chest pain. Patient was scheduled to see Dr. Fisher as outpatient on the first --Acute on chronic CHF exacerbation --David, likely cardiorenal syndrome, resolved --Morbid obesity --Hypotension --DVT prophylaxis: on lovenox Daily clinical course: 08/21: cont diuresis, midodrine for low BP, cardiology following, Echocardiogram is pending. 08/22/21: Plan to initiate dobutamin drip as urine output not improved, cont diuresis, follow BMP 08/23/2021: Remains on dobutamine infusion, no dyspnea or PND, BP remains soft on midodrine but mentating normally and asymptomatic, gross lower extremity edema not much improvement, urine output only 1650 mL, Bumex dose increased today, creatinine 1.7 and 1.6 today, cardiology is considering transfer to heart failure centers if no improvement. Discussed the patient in cardiology. 08/24/2021: Volume overload seems to be responding with IV Bumex and leg edema started improving. Urine output is probably not accurately documented. BP much improved and the sinus tachycardia remains. Creatinine improved from 1.7-1.2 today. Remains on dobutamine drip as well as a IV Bumex. Consider Bumex drip for more aggressive diuresis. Will discuss with cardiology. 08/25/2021: Urine output 6400 mL yesterday. Next still grossly swollen but soft with improving. Patient is complaining of significant pain in the right lower extremity which appears to be more swollen than the left. Ultrasound ordered to rule out DVT. Recommended elevation. Started beta-carlos for sinus tachycardia since of hypotension resolved. Remains on dobutamine and IV Bumex. DAVID likely from cardiorenal syndrome resolved. 08/26/2021: Continue diuresis with Bumex IV. Dobutamine has since been discontinued by cardiology. lower extremity Doppler completed but results still pending, will follow up results. Plan to transition patient to oral diuretics tomorrow and discharge home. 08/27: restarted on dobutamine infusion per cardiology given renal function. Will continue to follow. Follow up bmp on AM renal profile. 08/28: Still on dobutamine infusion, Renal function has improved today. Will follow final cardiology recommendations. 08/29: worsening lower extremity edema. Diuretics changed to Bumex 2 mg IV bid per cardiology. 08/30: 2D echo-revealed chamber enlargement, global LV hypokinesis with LVEF 10 to 15%, normal LV wall thickness. Cardiology following and changed Bumex from 1 mg p.o. twice daily to 2 mg IV twice daily. No CONSTANTINO/ARB due to soft BP and elevated creatinine. Continue lovenox for anticoagulation. Continue to follow renal function and creatinine. Continue midodrine for hypotension. continue Dietary and exercise recommendation for obesity when clinically stable on discharge. History Interval history: No new issues overnight. Hospitalist Physical - Constitutional Vitals: Temp Pulse Resp BP Pulse Ox 98.4 F 55 L 19 103/57 92 08/30/21 03:49 08/30/21 03:49 08/30/21 03:49 08/30/21 03:49 08/30/21 03:49 General appearance: Present: no acute distress, obese - EENT Eyes: Present: PERRL, EOM intact ENT: hearing intact, clear oral mucosa, dentition normal - Neck Neck: Present: supple, normal ROM - Respiratory Respiratory effort: normal Respiratory: bilateral: CTA - Cardiovascular Rhythm: regular Heart Sounds: Present: S1 & S2. Absent: gallop, rub - Extremities Extremities: no ischemia, No edema, Full ROM - Abdominal General gastrointestinal: soft, non-tender, non-distended, normal bowel sounds - Integumentary Integumentary: Present: clear, warm, dry - Neurologic Neurologic: CNII-XII intact, moves all extremities HEART Score - HEART Score Troponin: Troponin T 0.013 ng/mL (0.00-0.029) 08/20/21 15:55 Results - Labs CBC & Chem 7: 08/30/21 05:58 08/30/21 05:58 Labs: Laboratory Last Values WBC 9.6 K/mm3 (4.5-11.0) 08/30/21 05:58 RBC 3.64 M/mm3 (3.65-5.03) L 08/30/21 05:58 Hgb 11.2 gm/dl (11.8-15.2) L 08/30/21 05:58 Hct 34.0 % (35.5-45.6) L 08/30/21 05:58 MCV 93 fl (84-94) 08/30/21 05:58 MCH 31 pg (28-32) 08/30/21 05:58 MCHC 33 % (32-34) 08/30/21 05:58 RDW 15.2 % (13.2-15.2) 08/30/21 05:58 Plt Count 135 K/mm3 (140-440) L 08/30/21 05:58 Lymph % (Auto) 18.9 % (13.4-35.0) 08/20/21 08:03 [place] % (Auto) 7.0 % (0.0-7.3) 08/20/21 08:03 Eos % (Auto) 0.1 % (0.0-4.3) 08/20/21 08:03 Baso % (Auto) 0.3 % (0.0-1.8) 08/20/21 08:03 Lymph # (Auto) 1.4 K/mm3 (1.2-5.4) 08/20/21 08:03 [place] # (Auto) 0.5 K/mm3 (0.0-0.8) 08/20/21 08:03 Eos # (Auto) 0.0 K/mm3 (0.0-0.4) 08/20/21 08:03 Baso # (Auto) 0.0 K/mm3 (0.0-0.1) 08/20/21 08:03 Seg Neutrophils % 73.7 % (40.0-70.0) H 08/20/21 08:03 Seg Neutrophils # 5.4 K/mm3 (1.8-7.7) 08/20/21 08:03 PT 17.0 Sec. (12.2-14.9) H 08/20/21 08:03 INR 1.25 (0.87-1.13) H 08/20/21 08:03 Sodium 130 mmol/L (137-145) L 08/30/21 05:58 Potassium 3.5 mmol/L (3.6-5.0) L 08/30/21 05:58 Chloride 89.4 mmol/L (98-107) L 08/30/21 05:58 Carbon Dioxide 29 mmol/L (22-30) 08/30/21 05:58 Anion Gap 15 mmol/L 08/30/21 05:58 BUN 26 mg/dL (9-20) H 08/30/21 05:58 Creatinine 1.4 mg/dL (0.8-1.3) H 08/30/21 05:58 Estimated GFR > 60 ml/min 08/30/21 05:58 BUN/Creatinine Ratio 19 % 08/30/21 05:58 Glucose 166 mg/dL (75-100) H 08/30/21 05:58 POC Glucose 142 mg/dL (70-105) H 08/29/21 08:09 Hemoglobin A1c 7.7 % (4-6) H 08/24/21 14:58 Calcium 8.7 mg/dL (8.4-10.2) 08/30/21 05:58 Magnesium 2.20 mg/dL (1.7-2.3) 08/30/21 05:58 Total Bilirubin 1.40 mg/dL (0.1-1.2) H 08/24/21 14:58 AST 41 units/L (5-40) H 08/24/21 14:58 ALT 33 units/L (7-56) 08/24/21 14:58 Alkaline Phosphatase 100 units/L (35-129) 08/24/21 14:58 Troponin T 0.013 ng/mL (0.00-0.029) 08/20/21 15:55 NT-Pro-B Natriuret Pep 8256 pg/mL (0-450) H 08/24/21 14:58 Total Protein 8.3 g/dL (6.3-8.2) H 08/24/21 14:58 Albumin 3.8 g/dL (3.9-5) L 08/24/21 14:58 Albumin/Globulin Ratio 0.8 % 08/24/21 14:58 Smith/IV: Voiding Method Toilet Active Medications - Current Medications Current Medications: Generic Name Dose Route Start Last Admin Trade Name Freq PRN Reason Stop Dose Admin Acetaminophen 650 mg 08/24/21 13:00 08/29/21 21:48 Acetaminophen 325 Mg Tab PO 650 mg Q6H PRN Administration Pain, Mild (1-3) Hydrocodone Bitart/Acetaminophen 7.5 mg 08/26/21 09:00 Hydrocodone/Acetaminophen [id number] Oral Liqd PO Q6H PRN Pain, Moderate (4-6) Aspirin 325 mg 08/21/21 10:00 08/29/21 10:00 Aspirin 325 Mg Tab PO 325 mg QDAY IJEOMA Administration Atorvastatin Calcium 40 mg 08/20/21 22:00 08/29/21 21:48 Atorvastatin 40 Mg Tab PO 40 mg QHS IJEOMA Administration Bumetanide 2 mg 08/29/21 12:10 08/30/21 07:00 Bumetanide 1 Mg/4 Ml Inj IV 2 mg BID@0600,1800 IJEOMA Administration Enoxaparin Sodium 140 mg 08/23/21 13:00 08/29/21 21:49 Enoxaparin 150 Mg/1 Ml Inj SUB-Q Not Given Q12HR IJEOMA Protocol Dobutamine HCl/Dextrose 500 mg in 250 mls @ 20.4 mls/hr 08/27/21 12:00 08/29/21 13:30 Dobutrex Drip 500mg/D5w 250ml IV 5 mcg/kg/min DIRECT IJEOMA 20.4 mls/hr Administration Protocol 5 MCG/KG/MIN Metoprolol Tartrate 12.5 mg 08/28/21 22:00 08/29/21 21:48 Metoprolol Tartrate 25 Mg Tab PO 12.5 mg BID IJEOMA Administration Midodrine 5 mg 08/22/21 10:00 08/29/21 17:02 Midodrine 5 Mg Tab PO 5 mg 0800,1800 IJEOMA Administration Ondansetron HCl 4 mg 08/26/21 12:20 08/26/21 12:49 Ondansetron 4 Mg/2 Ml Inj IV 4 mg Q8H PRN Administration Nausea And Vomiting Nutrition/Malnutrition Assess - Dietary Evaluation Nutrition/Malnutrition Findings: Nutrition Notes Start: 08/26/21 16:09 Freq: Status: Active Protocol: Document 08/26/21 16:09 VALARIE (Rec: 08/26/21 16:27 VALARIE [id number]) Nutrition Notes Need for Assessment generated from: LOS Initial or Follow up Assessment Current Diagnosis Acute Kidney Injury,Diabetes, Hypertension,Respiratory Failure,Hyperlipidemia Other Pertinent Diagnosis HFrEF, ICD. Current Diet Cardiac Diet (since L 08/20). Labs/Tests Na 134, Cl 93.6, BUN 27 , Crea 1.6, Glu 132. Pertinent Medications 08/26: Nutritionally unremarkable. Height 5 ft 11 in Weight 136 kg [place] Body Weight (kg) 78.18 BMI 41.8 Weight Status Obese Subjective/Other Information RD consult for LOS. Percent of energy/protein needs met: Prescribed Cardiac Diet provides for energy/protein needs (2,230 Kcal/85 g) during LOS. Burn Absent Trauma Absent GI Symptoms None Food Allergy No Skin Integrity/Comment Clear, warm, dry. Current % PO Good (75-100%) Minimum of two criteria No #1 Nutrition Diagnosis No nutrition diagnosis at this time Comments: Pt appears to be responding well to medical treatment, and %PO intake of meals is Good ( 75-100%). Is patient on ventilator? No Is Patient Ambulatory and/or Out of Bed Yes REE-([place]-ambulatory/OOB) [ 2966.769 [id number]] Kcal/Kg value to use for calculation 16 Approximate Energy Requirements Using 2176 kcal/Kg Calculation Used for Recommendations Kcal/kg Additional Notes Protein: 0.6-0.8 g/Kg; 47-62 g /day (from IBW+DAVID). Fluids 1 ml/Kcal, or as per MD . Nutrition Intervention Change Diet Order: Continue Cardiac Diet. Goal #1 Maintain body weight within +/ -3% of current BWt during LOS. Goal #2 Reach and maintain acceptable chemistry lab values during LOS. Follow-Up By: 09/08/21 Additional Comments Continue monitoring food tolerance, %PO intake of meals , Hydration, and BM.
[2021-08-30] MEDS: METOPROLOL TARTRATE 25 MG TAB PO SCH ×2 (10:22→21:07)
[2021-08-30] MEDS: MIDODRINE 5 MG TAB PO SCH ×2 (10:23→20:01)
[2021-08-30] MEDS: ASPIRIN 325 MG TAB PO SCH (10:23)
[2021-08-30] MEDS: ENOXAPARIN 150 MG/1 ML INJ SUB-Q SCH ×2 (10:24→21:08)
--- NOTE | 2021-08-30 13:00 | Progress Note ---
Assessment and Plan Echo 08/22/2021-EF 10 to 15%, severe global hypokinesis of left ventricle, left ventricle severely dilated. Right ventricle is moderately dilated, right ventricle is moderately hypokinetic, device lead is present in his right ventricle. Left and right atrium moderately dilated. Moderate tricuspid regurgitation, mild to moderate pulmonic regurgitation Continue midodrine 5mg PO BID Contninue dobutamine gtt Continue bumex 2mg IV BID. No CONSTANTINO/ARB due to soft BP and elevated creatinine Continue lovenox for anticoagulation Patient to be transferred to [facility] pending bed availability. Case discussed with Dr. Baumann @ [facility] who accepted the patient Patient seen in conjunction with Dr. Fisher who agrees with this plan of care. Will continue to follow. - Patient Problems (1) ICD (implantable cardioverter-defibrillator) in place Current Visit: Yes Status: Chronic (2) Acute on chronic HFrEF (heart failure with reduced ejection fraction) Current Visit: No Status: Acute (3) Hyperlipidemia Current Visit: No Status: Acute Qualifiers: Hyperlipidemia type: mixed hyperlipidemia Qualified Code(s): E78.2 - Mixed hyperlipidemia (4) Cardiomyopathy Current Visit: No Status: Chronic (5) Diabetes mellitus Current Visit: No Status: Chronic Qualifiers: Diabetes mellitus type: type 2 (6) ICD (implantable cardioverter-defibrillator) in place Current Visit: Yes Status: Chronic (7) Nonischemic cardiomyopathy Current Visit: No Status: Chronic (8) Obesity (BMI 30.0-34.9) Current Visit: No Status: Chronic (9) Acute respiratory failure Current Visit: Yes Status: Acute (10) Renal insufficiency Current Visit: Yes Status: Acute Subjective Date of service: 08/30/21 Principal diagnosis: acute on chronic HFrEF Interval history: Patient resting in bed in no acute distress. Paced 112 with no event monitor uop= -1410ml Objective Vital Signs Temp Pulse Resp BP Pulse Ox 08/30/21 12:07 99.4 F 20 138/84 100 08/30/21 09:25 110 H 100 08/30/21 08:10 98.8 F 114 H 18 114/80 93 08/30/21 03:49 98.4 F 55 L 19 103/57 92 08/29/21 23:25 98.1 F 109 H 18 119/88 94 08/29/21 22:00 106 H 16 98 08/29/21 19:29 98.2 F 111 H 14 117/81 97 08/29/21 16:14 98.4 F 110 H 18 113/75 94 - Physical Examination General: No Apparent Distress HEENT: Positive: EOMI, Normocephaly, Mucus Membranes Moist Neck: Positive: trachea midline, JVD/HJR, Carotid Upstroke (full) Cardiac: Positive: Regular Rhythm, Tachycardia Neuro: Positive: Grossly Intact Abdomen: Positive: Soft, Active Bowel Sounds. Negative: Tender Skin: Negative: Rash Musculoskeletal: Normal Range of Motion Extremities: Present: +3 Edema (of legs) - Labs and Meds CBC 08/30/21 Range/Units 05:58 WBC 9.6 (4.5-11.0) K/mm3 RBC 3.64 L (3.65-5.03) M/mm3 Hgb 11.2 L (11.8-15.2) gm/dl Hct 34.0 L (35.5-45.6) % Plt Count 135 L (140-440) K/mm3 Comprehensive Metabolic Panel 08/30/21 Range/Units 05:58 Sodium 130 L (137-145) mmol/L Potassium 3.5 L (3.6-5.0) mmol/L Chloride 89.4 L (98-107) mmol/L Carbon Dioxide 29 (22-30) mmol/L BUN 26 H (9-20) mg/dL Creatinine 1.4 H (0.8-1.3) mg/dL Glucose 166 H (75-100) mg/dL Calcium 8.7 (8.4-10.2) mg/dL - Imaging and Cardiology Echo: report reviewed - Telemetry EKG Rhythm: Paced Pacemaker: ventricular pacing w/capt
--- NOTE | 2021-08-30 13:24 | Discharge Summary ---
Providers - Providers Date of Admission: 08/21/21 09:55 Date of discharge: 08/30/21 Attending physician: BRYAN ARIAS 08/20/21 09:09 Consult to Physician [CONS] Urgent Comment: Consulting Provider: MAGDALENA COUCH Physician Instructions: Reason For Exam: chf exacerbation Primary care physician: [employer] Hospitalization Reason for admission: chf Condition: Stable Hospital course: 40 y/o male with PMHx of HFrEF, dilated cardiomyopathy EF 15 to 20%, pacemaker in situ, hypertension, hyperlipidemia, diabetes, and DIANN presents to the hospital with complaints of worsening edema, abdominal distention, shortness of breath, and 40 pound weight gain x1 month. Patient was admitted here in June for CHF exacerbation. He has been compliant with his Bumex and Aldactone however has been out of his carvedilol for the past 3 weeks. Patient states he has been noncompliant with his recommended 1 L daily fluid restriction. He was admitted with dx of --Acute on chronic CHF exacerbation --David, likely cardiorenal syndrome, resolved --Morbid obesity --Hypotension --DVT prophylaxis: on lovenox Daily clinical course: 08/21: cont diuresis, midodrine for low BP, cardiology following, Echocardiogram is pending. 08/22/21: Plan to initiate dobutamin drip as urine output not improved, cont diuresis, follow BMP 08/23/2021: Remains on dobutamine infusion, no dyspnea or PND, BP remains soft on midodrine but mentating normally and asymptomatic, gross lower extremity edema not much improvement, urine output only 1650 mL, Bumex dose increased today, creatinine 1.7 and 1.6 today, cardiology is considering transfer to heart failure centers if no improvement. Discussed the patient in cardiology. 08/24/2021: Volume overload seems to be responding with IV Bumex and leg edema started improving. Urine output is probably not accurately documented. BP much improved and the sinus tachycardia remains. Creatinine improved from 1.7-1.2 today. Remains on dobutamine drip as well as a IV Bumex. Consider Bumex drip for more aggressive diuresis. Will discuss with cardiology. 08/25/2021: Urine output 6400 mL yesterday. Next still grossly swollen but soft with improving. Patient is complaining of significant pain in the right lower extremity which appears to be more swollen than the left. Ultrasound ordered to rule out DVT. Recommended elevation. Started beta-carlos for sinus tachycardia since of hypotension resolved. Remains on dobutamine and IV Bumex. DAVID likely from cardiorenal syndrome resolved. 08/26/2021: Continue diuresis with Bumex IV. Dobutamine has since been discontinued by cardiology. lower extremity Doppler completed but results still pending, will follow up results. Plan to transition patient to oral diuretics tomorrow and discharge home. 08/27: restarted on dobutamine infusion per cardiology given renal function. Will continue to follow. Follow up bmp on AM renal profile. 08/28: Still on dobutamine infusion, Renal function has improved today. Will follow final cardiology recommendations. 08/29: worsening lower extremity edema. Diuretics changed to Bumex 2 mg IV bid per cardiology. 08/30: 2D echo-revealed chamber enlargement, global LV hypokinesis with LVEF 10 to 15%, normal LV wall thickness. Cardiology following and changed Bumex from 1 mg p.o. twice daily to 2 mg IV twice daily. No CONSTANTINO/ARB due to soft BP and elevated creatinine. Continue lovenox for anticoagulation. Continue to follow renal function and creatinine. Continue midodrine for hypotension. continue Dietary and exercise recommendation for obesity when clinically stable on discharge. Pt to d/c to [facility] under care of Dr. Baumann. D/C time 36 min Disposition: 02 SHORT TERM HOSPITAL Final Discharge Diagnosis (Prints w/discharge instructions): --Acute on chronic CHF exacerbationAki, likely cardiorenal syndrome,Morbid obesity,Hypotension Core Measure Documentation - Palliative Care Palliative Care/ Comfort Measures: Not Applicable - Core Measures Any of the following diagnoses?: none Exam - Constitutional Vitals: Temp Pulse Resp BP Pulse Ox 99.4 F 110 H 20 138/84 100 08/30/21 12:07 08/30/21 09:25 08/30/21 12:07 08/30/21 12:07 08/30/21 12:07 General appearance: Present: no acute distress, well-nourished - EENT Eyes: Present: PERRL ENT: hearing intact, clear oral mucosa - Neck Neck: Present: supple, normal ROM - Respiratory Respiratory effort: normal Respiratory: bilateral: rales - Cardiovascular Heart Sounds: Present: S1 & S2. Absent: rub, click - Extremities Extremities: pulses symmetrical, No edema Peripheral Pulses: within normal limits - Abdominal General gastrointestinal: Present: soft, non-tender, non-distended, normal bowel sounds Male genitourinary: Present: normal - Integumentary Integumentary: Present: clear, warm, dry - Musculoskeletal Musculoskeletal: gait normal, strength equal bilaterally - Psychiatric Psychiatric: appropriate mood/affect, intact judgment & insight - Neurologic Neurologic: CNII-XII intact, moves all extremities Plan Activity: advance as tolerated Weight Bearing Status: Full Weight Bearing Diet: low fat, low cholesterol, low salt Follow up with: PRIMARY CARE, [Primary Care Provider] - 7 Days
[2021-08-30] MEDS: DOBUTamine/D5W 500 MG/250 ML 500 MG/250 ML BAG IV SCH (15:37)
[2021-08-31] MEDS: BUMETANIDE 1 MG/4 ML INJ IV SCH ×2 (05:48→19:48)
[2021-08-31] MEDS: MIDODRINE 5 MG TAB PO SCH ×2 (08:44→18:09)
[2021-08-31] MEDS: DOBUTamine/D5W 500 MG/250 ML 500 MG/250 ML BAG IV SCH ×2 (08:45→23:52)
[2021-08-31 09:30] LABS: Hematocrit 34.3 % (35.5-45.6); Hemoglobin 11.2 gm/dl (11.8-15.2); Mean Corpuscular HGB Conc 33 % (32-34); Mean Corpuscular Volume 94 fl (84-94); Platelet Count 139 K/mm3 (140-440); Red Blood Count 3.66 M/mm3 (3.65-5.03); Red Cell Distribution Width 15.1 % (13.2-15.2)
[2021-08-31 09:43] LABS: BUN/Creatinine Ratio 18; Blood Urea Nitrogen 23 mg/dL (9-20); Calcium 8.4 mg/dL (8.4-10.2); Hemolysis Index 7
[2021-08-31] MEDS: METOPROLOL TARTRATE 25 MG TAB PO SCH ×2 (09:44→21:29)
[2021-08-31] MEDS: ASPIRIN 325 MG TAB PO SCH (09:44)
[2021-08-31] MEDS: ENOXAPARIN 150 MG/1 ML INJ SUB-Q SCH ×2 (09:47→21:29)
--- NOTE | 2021-08-31 16:00 | Progress Note ---
Assessment and Plan Echo 08/22/2021-EF 10 to 15%, severe global hypokinesis of left ventricle, left ventricle severely dilated. Right ventricle is moderately dilated, right ventricle is moderately hypokinetic, device lead is present in his right ventricle. Left and right atrium moderately dilated. Moderate tricuspid regurgitation, mild to moderate pulmonic regurgitation Continue midodrine 5mg PO BID Contninue dobutamine gtt Continue bumex 2mg IV BID. Labs in a.m. No CONSTANTINO/ARB due to soft BP Continue lovenox for anticoagulation Patient to be transferred to [facility] pending bed availability. Case discussed with Dr. Baumann @ [facility] who accepted the patient Patient seen in conjunction with Dr. Fisher who agrees with this plan of care. Will continue to follow. - Patient Problems (1) ICD (implantable cardioverter-defibrillator) in place Current Visit: Yes Status: Chronic (2) Acute on chronic HFrEF (heart failure with reduced ejection fraction) Current Visit: No Status: Acute (3) Hyperlipidemia Current Visit: No Status: Acute Qualifiers: Hyperlipidemia type: mixed hyperlipidemia Qualified Code(s): E78.2 - Mixed hyperlipidemia (4) Cardiomyopathy Current Visit: No Status: Chronic (5) Diabetes mellitus Current Visit: No Status: Chronic Qualifiers: Diabetes mellitus type: type 2 (6) ICD (implantable cardioverter-defibrillator) in place Current Visit: Yes Status: Chronic (7) Nonischemic cardiomyopathy Current Visit: No Status: Chronic (8) Obesity (BMI 30.0-34.9) Current Visit: No Status: Chronic (9) Acute respiratory failure Current Visit: Yes Status: Acute (10) Renal insufficiency Current Visit: Yes Status: Acute Subjective Date of service: 08/31/21 Principal diagnosis: acute on chronic HFrEF Interval history: Patient resting in bed in no acute distress. Paced 112 with no event monitor Objective Vital Signs Temp Pulse Pulse Resp BP Pulse Ox 08/31/21 10:12 115 H 08/31/21 10:06 115 H 24 98 08/31/21 09:44 62 105/87 08/31/21 08:02 98.4 F 59 L 19 105/87 95 08/31/21 03:36 99.3 F 85 20 119/89 93 08/30/21 23:23 98.1 F 111 H 18 128/97 98 08/30/21 20:19 16 98 08/30/21 19:25 98.2 F 116 H 19 106/74 91 08/30/21 16:32 112 H 97 08/30/21 16:31 99.0 F 22 106/73 - Physical Examination General: No Apparent Distress HEENT: Positive: EOMI, Normocephaly, Mucus Membranes Moist Neck: Positive: trachea midline, JVD/HJR, Carotid Upstroke (full) Cardiac: Positive: Regular Rhythm, Tachycardia Lungs: Positive: Decreased Breath Sounds Neuro: Positive: Grossly Intact Abdomen: Positive: Soft, Active Bowel Sounds. Negative: Tender Skin: Negative: Rash Musculoskeletal: Normal Range of Motion Extremities: Present: +3 Edema (of legs) - Labs and Meds CBC 08/31/21 Range/Units 08:57 WBC 8.4 (4.5-11.0) K/mm3 RBC 3.66 (3.65-5.03) M/mm3 Hgb 11.2 L (11.8-15.2) gm/dl Hct 34.3 L (35.5-45.6) % Plt Count 139 L (140-440) K/mm3 Comprehensive Metabolic Panel 08/31/21 Range/Units 08:57 Sodium 133 L (137-145) mmol/L Potassium 3.6 (3.6-5.0) mmol/L Chloride 90.9 L (98-107) mmol/L Carbon Dioxide 29 (22-30) mmol/L BUN 23 H (9-20) mg/dL Creatinine 1.3 (0.8-1.3) mg/dL Glucose 179 H (75-100) mg/dL Calcium 8.4 (8.4-10.2) mg/dL - Imaging and Cardiology Echo: report reviewed - Telemetry EKG Rhythm: Paced Pacemaker: ventricular pacing w/capt
[2021-09-01] MEDS: BUMETANIDE 1 MG/4 ML INJ IV SCH (05:52)
[2021-09-01 07:08] LABS: Hematocrit 34.1 % (35.5-45.6); Hemoglobin 11.2 gm/dl (11.8-15.2); Mean Corpuscular HGB Conc 33 % (32-34); Mean Corpuscular Volume 94 fl (84-94); Platelet Count 156 K/mm3 (140-440); Red Blood Count 3.65 M/mm3 (3.65-5.03); Red Cell Distribution Width 15.3 % (13.2-15.2)
[2021-09-01 07:20] LABS: BUN/Creatinine Ratio 17; Blood Urea Nitrogen 24 mg/dL (9-20); Calcium 8.5 mg/dL (8.4-10.2); Hemolysis Index 0
--- NOTE | 2021-09-01 08:01 | Progress Note ---
Assessment and Plan Assessment and plan: 40 y/o male with PMHx of HFrEF, dilated cardiomyopathy EF 15 to 20%, pacemaker in situ, hypertension, hyperlipidemia, diabetes, and DIANN presents to the hospital with complaints of worsening edema, abdominal distention, shortness of breath, and 40 pound weight gain x1 month. Patient was admitted here in June for CHF exacerbation. He has been compliant with his Bumex and Aldactone however has been out of his carvedilol for the past 3 weeks. Patient states he has been noncompliant with his recommended 1 L daily fluid restriction. He also thinks he has been ingesting too much salt. Patient complains of frequent coughing and wheezing with cough. Denies fever or chest pain. Patient was scheduled to see Dr. Fisher as outpatient on the first --Acute on chronic CHF exacerbation --David, likely cardiorenal syndrome, resolved --Morbid obesity --Hypotension --DVT prophylaxis: on lovenox Daily clinical course: 08/21: cont diuresis, midodrine for low BP, cardiology following, Echocardiogram is pending. 08/22/21: Plan to initiate dobutamin drip as urine output not improved, cont diuresis, follow BMP 08/23/2021: Remains on dobutamine infusion, no dyspnea or PND, BP remains soft on midodrine but mentating normally and asymptomatic, gross lower extremity edema not much improvement, urine output only 1650 mL, Bumex dose increased today, creatinine 1.7 and 1.6 today, cardiology is considering transfer to heart failure centers if no improvement. Discussed the patient in cardiology. 08/24/2021: Volume overload seems to be responding with IV Bumex and leg edema started improving. Urine output is probably not accurately documented. BP much improved and the sinus tachycardia remains. Creatinine improved from 1.7-1.2 today. Remains on dobutamine drip as well as a IV Bumex. Consider Bumex drip for more aggressive diuresis. Will discuss with cardiology. 08/25/2021: Urine output 6400 mL yesterday. Next still grossly swollen but soft with improving. Patient is complaining of significant pain in the right lower extremity which appears to be more swollen than the left. Ultrasound ordered to rule out DVT. Recommended elevation. Started beta-carlos for sinus tachycardia since of hypotension resolved. Remains on dobutamine and IV Bumex. DAVID likely from cardiorenal syndrome resolved. 08/26/2021: Continue diuresis with Bumex IV. Dobutamine has since been discontinued by cardiology. lower extremity Doppler completed but results still pending, will follow up results. Plan to transition patient to oral diuretics tomorrow and discharge home. 08/27: restarted on dobutamine infusion per cardiology given renal function. Will continue to follow. Follow up bmp on AM renal profile. 08/28: Still on dobutamine infusion, Renal function has improved today. Will follow final cardiology recommendations. 08/29: worsening lower extremity edema. Diuretics changed to Bumex 2 mg IV bid per cardiology. 08/30: 2D echo-revealed chamber enlargement, global LV hypokinesis with LVEF 10 to 15%, normal LV wall thickness. Cardiology following and changed Bumex from 1 mg p.o. twice daily to 2 mg IV twice daily. No CONSTANTINO/ARB due to soft BP and elevated creatinine. Continue lovenox for anticoagulation. Continue to follow renal function and creatinine. Continue midodrine for hypotension. continue Dietary and exercise recommendation for obesity when clinically stable on discharge. 08/31: Patient awaiting for bed to transfer to [place] [facility]. Continue current treatment for heart failure. History Interval history: No new issues overnight. Hospitalist Physical - Constitutional Vitals: Temp Pulse Resp BP Pulse Ox 98.1 F 110 H 18 106/84 95 09/01/21 07:20 09/01/21 07:20 09/01/21 07:20 09/01/21 07:20 09/01/21 07:20 General appearance: Present: no acute distress, well-nourished - EENT Eyes: Present: PERRL, EOM intact ENT: hearing intact, clear oral mucosa, dentition normal - Neck Neck: Present: supple, normal ROM - Respiratory Respiratory effort: normal Respiratory: bilateral: CTA - Cardiovascular Rhythm: regular Heart Sounds: Present: S1 & S2. Absent: gallop, rub - Extremities Extremities: no ischemia, No edema, Full ROM - Abdominal General gastrointestinal: soft, non-tender, non-distended, normal bowel sounds - Integumentary Integumentary: Present: clear, warm, dry - Neurologic Neurologic: CNII-XII intact, moves all extremities HEART Score - HEART Score Troponin: Troponin T 0.013 ng/mL (0.00-0.029) 10/30/21 15:55 Results - Labs CBC & Chem 7: 09/01/21 04:26 09/01/21 04:26 Labs: Laboratory Last Values WBC 8.1 K/mm3 (4.5-11.0) 09/01/21 04:26 RBC 3.65 M/mm3 (3.65-5.03) 09/01/21 04:26 Hgb 11.2 gm/dl (11.8-15.2) L 09/01/21 04:26 Hct 34.1 % (35.5-45.6) L 09/01/21 04:26 MCV 94 fl (84-94) 09/01/21 04:26 MCH 31 pg (28-32) 09/01/21 04:26 MCHC 33 % (32-34) 09/01/21 04:26 RDW 15.3 % (13.2-15.2) H 09/01/21 04:26 Plt Count 156 K/mm3 (140-440) 09/01/21 04:26 Lymph % (Auto) 18.9 % (13.4-35.0) 08/20/21 08:03 [place] % (Auto) 7.0 % (0.0-7.3) 08/20/21 08:03 Eos % (Auto) 0.1 % (0.0-4.3) 08/20/21 08:03 Baso % (Auto) 0.3 % (0.0-1.8) 08/20/21 08:03 Lymph # (Auto) 1.4 K/mm3 (1.2-5.4) 08/20/21 08:03 [place] # (Auto) 0.5 K/mm3 (0.0-0.8) 08/20/21 08:03 Eos # (Auto) 0.0 K/mm3 (0.0-0.4) 08/20/21 08:03 Baso # (Auto) 0.0 K/mm3 (0.0-0.1) 08/20/21 08:03 Seg Neutrophils % 73.7 % (40.0-70.0) H 08/20/21 08:03 Seg Neutrophils # 5.4 K/mm3 (1.8-7.7) 08/20/21 08:03 PT 17.0 Sec. (12.2-14.9) H 08/20/21 08:03 INR 1.25 (0.87-1.13) H 08/20/21 08:03 Sodium 133 mmol/L (137-145) L 09/01/21 04:26 Potassium 3.3 mmol/L (3.6-5.0) L 09/01/21 04:26 Chloride 91.1 mmol/L (98-107) L 09/01/21 04:26 Carbon Dioxide 29 mmol/L (22-30) 09/01/21 04:26 Anion Gap 16 mmol/L 09/01/21 04:26 BUN 24 mg/dL (9-20) H 09/01/21 04:26 Creatinine 1.4 mg/dL (0.8-1.3) H 09/01/21 04:26 Estimated GFR > 60 ml/min 09/01/21 04:26 BUN/Creatinine Ratio 17 % 09/01/21 04:26 Glucose 198 mg/dL (75-100) H 09/01/21 04:26 POC Glucose 142 mg/dL (70-105) H 08/29/21 08:09 Hemoglobin A1c 7.7 % (4-6) H 08/24/21 14:58 Calcium 8.5 mg/dL (8.4-10.2) 09/01/21 04:26 Magnesium 2.20 mg/dL (1.7-2.3) 08/30/21 05:58 Total Bilirubin 1.40 mg/dL (0.1-1.2) H 08/24/21 14:58 AST 41 units/L (5-40) H 08/24/21 14:58 ALT 33 units/L (7-56) 08/24/21 14:58 Alkaline Phosphatase 100 units/L (35-129) 08/24/21 14:58 Troponin T 0.013 ng/mL (0.00-0.029) 08/20/21 15:55 NT-Pro-B Natriuret Pep 8256 pg/mL (0-450) H 08/24/21 14:58 Total Protein 8.3 g/dL (6.3-8.2) H 08/24/21 14:58 Albumin 3.8 g/dL (3.9-5) L 08/24/21 14:58 Albumin/Globulin Ratio 0.8 % 08/24/21 14:58 Smith/IV: Voiding Method Urinal Active Medications - Current Medications Current Medications: Generic Name Dose Route Start Last Admin Trade Name Freq PRN Reason Stop Dose Admin Acetaminophen 650 mg 08/24/21 13:00 08/29/21 21:48 Acetaminophen 325 Mg Tab PO 650 mg Q6H PRN Administration Pain, Mild (1-3) Hydrocodone Bitart/Acetaminophen 7.5 mg 08/26/21 09:00 Hydrocodone/Acetaminophen [id number] Oral Liqd PO Q6H PRN Pain, Moderate (4-6) Aspirin 325 mg 08/21/21 10:00 08/31/21 09:44 Aspirin 325 Mg Tab PO 325 mg QDAY IJEOMA Administration Atorvastatin Calcium 40 mg 08/20/21 22:00 08/31/21 21:29 Atorvastatin 40 Mg Tab PO 40 mg QHS IJEOMA Administration Bumetanide 2 mg 08/29/21 12:10 09/01/21 05:52 Bumetanide 1 Mg/4 Ml Inj IV 2 mg BID@0600,1800 IJEOMA Administration Enoxaparin Sodium 140 mg 08/23/21 13:00 08/31/21 21:29 Enoxaparin 150 Mg/1 Ml Inj SUB-Q 140 mg Q12HR IJEOMA Administration Protocol Dobutamine HCl/Dextrose 500 mg in 250 mls @ 20.4 mls/hr 08/27/21 12:00 08/31/21 23:52 Dobutrex Drip 500mg/D5w 250ml IV 5 mcg/kg/min DIRECT IJEOMA 20.4 mls/hr Administration Protocol 5 MCG/KG/MIN Metoprolol Tartrate 12.5 mg 08/28/21 22:00 08/31/21 21:29 Metoprolol Tartrate 25 Mg Tab PO 12.5 mg BID IJEOMA Administration Midodrine 5 mg 08/22/21 10:00 08/31/21 18:09 Midodrine 5 Mg Tab PO 5 mg 0800,1800 IJEOMA Administration Ondansetron HCl 4 mg 08/26/21 12:20 08/26/21 12:49 Ondansetron 4 Mg/2 Ml Inj IV 4 mg Q8H PRN Administration Nausea And Vomiting Nutrition/Malnutrition Assess - Dietary Evaluation Nutrition/Malnutrition Findings: Nutrition Notes Start: 08/26/21 16:09 Freq: Status: Active Protocol: Document 08/26/21 16:09 VALARIE (Rec: 08/26/21 16:27 VALARIE [id number]) Nutrition Notes Need for Assessment generated from: LOS Initial or Follow up Assessment Current Diagnosis Acute Kidney Injury,Diabetes, Hypertension,Respiratory Failure,Hyperlipidemia Other Pertinent Diagnosis HFrEF, ICD. Current Diet Cardiac Diet (since L 08/20). Labs/Tests Na 134, Cl 93.6, BUN 27 , Crea 1.6, Glu 132. Pertinent Medications 08/26: Nutritionally unremarkable. Height 5 ft 11 in Weight 136 kg [place] Body Weight (kg) 78.18 BMI 41.8 Weight Status Obese Subjective/Other Information RD consult for LOS. Percent of energy/protein needs met: Prescribed Cardiac Diet provides for energy/protein needs (2,230 Kcal/85 g) during LOS. Burn Absent Trauma Absent GI Symptoms None Food Allergy No Skin Integrity/Comment Clear, warm, dry. Current % PO Good (75-100%) Minimum of two criteria No #1 Nutrition Diagnosis No nutrition diagnosis at this time Comments: Pt appears to be responding well to medical treatment, and %PO intake of meals is Good ( 75-100%). Is patient on ventilator? No Is Patient Ambulatory and/or Out of Bed Yes REE-([facility]-ambulatory/OOB) [ 2966.769 [id number]] Kcal/Kg value to use for calculation 16 Approximate Energy Requirements Using 2176 kcal/Kg Calculation Used for Recommendations Kcal/kg Additional Notes Protein: 0.6-0.8 g/Kg; 47-62 g /day (from IBW+DAVID). Fluids 1 ml/Kcal, or as per MD . Nutrition Intervention Change Diet Order: Continue Cardiac Diet. Goal #1 Maintain body weight within +/ -3% of current BWt during LOS. Goal #2 Reach and maintain acceptable chemistry lab values during LOS. Follow-Up By: 09/08/21 Additional Comments Continue monitoring food tolerance, %PO intake of meals , Hydration, and BM.
[2021-09-01] MEDS: ENOXAPARIN 150 MG/1 ML INJ SUB-Q SCH (09:57)
[2021-09-01] MEDS: ASPIRIN 325 MG TAB PO SCH (09:57)
[2021-09-01] MEDS: MIDODRINE 5 MG TAB PO SCH (09:58)
[2021-09-01] MEDS: METOPROLOL TARTRATE 25 MG TAB PO SCH (10:06)
--- NOTE | 2021-09-01 15:19 | Progress Note ---
Assessment and Plan Echo 08/22/2021 - EF 10-15%, LV severely dilated, spontaneous echo contrast noted, RV moderately dilated, RV moderately hypokinetic, RA moderately dilated, LA moderately dilated, moderate TR, mild-moderate OR. [facility] 06/2019 - no angiographic evidence of significant epicardial coronary diseas e. Continue dobutamine gtt @ 5mcg/kg/min, along with IV diuresis (Bumex 2mg BID), with strict I/Os and close monitoring of renal indices & electrolytes. Other GDMT for HF is currently on hold in the setting of hypotension. Continue anticoagulation with SQ Lovenox. Awaiting transfer to [facility] pending bed availability. Case d/w Dr. Baumann @ [place], who has agreed to accept pt via transfer. Patient seen in conjunction with Dr. Fisher, who agrees with the assessment and plan of care. - Patient Problems (1) Acute respiratory failure Current Visit: Yes Status: Acute (2) Acute on chronic HFrEF (heart failure with reduced ejection fraction) Current Visit: Yes Status: Acute (3) Nonischemic dilated cardiomyopathy Current Visit: Yes Status: Chronic (4) ICD (implantable cardioverter-defibrillator) in place Current Visit: Yes Status: Chronic (5) Right ventricular dysfunction Current Visit: Yes Status: Chronic (6) DAVID (acute kidney injury) Current Visit: Yes Status: Acute (7) Hypotension Current Visit: Yes Status: Acute (8) Hx of primary hypertension Current Visit: Yes Status: Chronic (9) T2DM (type 2 diabetes mellitus) Current Visit: Yes Status: Chronic (10) Obesity Current Visit: Yes Status: Chronic Qualifiers: Body mass index: BMI 38.0-38.9 (11) DIANN (obstructive sleep apnea) Current Visit: Yes Status: Chronic Subjective Date of service: 09/01/21 Principal diagnosis: A/C HFrEF Interval history: No new complaints. 3075mL UOP recorded / 24 hrs. On dobutamine gtt @ 5mcg/kg/min. BV-paced on tele, no events. Objective Last Vital Signs Temp 98.8 F 09/01/21 11:03 Pulse 54 L 09/01/21 11:03 Resp 20 09/01/21 11:03 BP 108/63 09/01/21 11:03 Pulse Ox 96 09/01/21 11:03 - Physical Examination General: No Apparent Distress HEENT: Positive: EOMI, Normocephaly Neck: Positive: neck supple, trachea midline, JVD/HJR Cardiac: Positive: Reg Rate and Rhythm, S1/S2 Lungs: Positive: Decreased Breath Sounds (bases) Neuro: Positive: Grossly Intact Abdomen: Positive: Firm. Negative: Tender Skin: Negative: Rash Musculoskeletal: Normal Range of Motion Extremities: Present: lower extr. pulses, +3 Edema (BLE), warm - Labs and Meds CBC 09/01/21 Range/Units 04:26 WBC 8.1 (4.5-11.0) K/mm3 RBC 3.65 (3.65-5.03) M/mm3 Hgb 11.2 L (11.8-15.2) gm/dl Hct 34.1 L (35.5-45.6) % Plt Count 156 (140-440) K/mm3 Comprehensive Metabolic Panel 09/01/21 Range/Units 04:26 Sodium 133 L (137-145) mmol/L Potassium 3.3 L (3.6-5.0) mmol/L Chloride 91.1 L (98-107) mmol/L Carbon Dioxide 29 (22-30) mmol/L BUN 24 H (9-20) mg/dL Creatinine 1.4 H (0.8-1.3) mg/dL Glucose 198 H (75-100) mg/dL Calcium 8.5 (8.4-10.2) mg/dL - Imaging and Cardiology EKG: report reviewed, image reviewed Echo: report reviewed Cardiac cath: report reviewed - Telemetry EKG Rhythm: Paced Pacemaker: ventricular pacing w/capt
[2021-09-01] MEDS: DOBUTamine/D5W 500 MG/250 ML 500 MG/250 ML BAG IV SCH (16:10)
[2021-09-01 16:31] VITALS: BP 118/80
== END 2021-09-01 17:00 | disposition short-term general hospital (02) | DRG 291 ==
LOC: ED 07:32 → 4A 09:21 → OBSVTOIN 08-21 09:55
PROVIDERS: ADMIT Internal Medicine; ATTEND Hospitalist
PROC: 5A09357 Assistance with Respiratory Ventilation, Less than 24 Consecutive Hours, Continuous Positive Airway Pressure (ICD-10-PCS; principal; 2021-08-23)
DX: I11.0 Hypertensive heart disease with heart failure (principal); N17.0 Acute kidney failure with tubular necrosis; J96.00 Acute respiratory failure, unspecified whether with hypoxia or hypercapnia; I50.23 Acute on chronic systolic (congestive) heart failure; E66.2 Morbid (severe) obesity with alveolar hypoventilation; Z68.45 Body mass index [BMI] 70 or greater, adult; I42.8 Other cardiomyopathies; E11.9 Type 2 diabetes mellitus without complications; G47.33 Obstructive sleep apnea (adult) (pediatric); Z91.11 Patient's noncompliance with dietary regimen; Z20.822 Contact with and (suspected) exposure to COVID-19; I95.9 Hypotension, unspecified; E78.2 Mixed hyperlipidemia
CPT/HCPCS: 36415; 71045; 80048; 80053; 82962; 83036; 83735; 83880; 84484; 85025; 85027; 85610; 93005; 93306; 93970; 94760; G0378; J1250; J1644; J1650; J1940; J2405

== ENCOUNTER 2021-11-22 11:19 | Outpatient (CLI) | payer OTHER ==
[2021-11-22 13:10] LABS: INR 2.24 (0.87-1.13)
== END 2021-11-22 11:20 | disposition home or self-care (01) ==
LOC: LAB 11:19
PROVIDERS: ATTEND Internal Medicine Cardiovascular Disease
DX: I50.9 Heart failure, unspecified (principal); Z79.01 Long term (current) use of anticoagulants; Z95.811 Presence of heart assist device
CPT/HCPCS: 36415; 85610

== ENCOUNTER 2021-12-13 09:35 | Outpatient (CLI) | payer OTHER ==
[2021-12-13 10:15] LABS: INR 2.17 (0.87-1.13)
== END 2021-12-13 09:36 | disposition home or self-care (01) ==
LOC: LAB 09:35
DX: I50.9 Heart failure, unspecified (principal); Z95.811 Presence of heart assist device; Z79.01 Long term (current) use of anticoagulants
CPT/HCPCS: 36415; 85610

== ENCOUNTER 2022-01-12 10:03 | Outpatient (CLI) | payer MEDICARE, OTHER ==
[2022-01-12 11:00] LABS: INR 2.11 (0.87-1.13)
== END 2022-01-12 10:04 | disposition home or self-care (01) ==
LOC: LAB 10:03
PROVIDERS: ATTEND Internal Medicine Cardiovascular Disease
DX: I50.9 Heart failure, unspecified (principal); Z79.01 Long term (current) use of anticoagulants; Z95.811 Presence of heart assist device
CPT/HCPCS: 36415; 85610

== ENCOUNTER 2022-01-24 09:39 | Outpatient (CLI) | payer MEDICARE, OTHER ==
[2022-01-24 10:10] LABS: INR 2.32 (0.87-1.13)
== END 2022-01-24 09:40 | disposition home or self-care (01) ==
LOC: LAB 09:39
PROVIDERS: ATTEND Internal Medicine Cardiovascular Disease
DX: I50.9 Heart failure, unspecified (principal); Z79.01 Long term (current) use of anticoagulants; Z95.811 Presence of heart assist device
CPT/HCPCS: 36415; 85610

== ENCOUNTER 2022-03-22 08:58 | Outpatient (CLI) | payer MEDICARE ==
[2022-03-22 09:41] LABS: INR 2.51 (0.87-1.13)
== END 2022-03-22 08:59 | disposition home or self-care (01) ==
LOC: LAB 08:58
PROVIDERS: ATTEND Internal Medicine Cardiovascular Disease
DX: I50.9 Heart failure, unspecified (principal); Z79.01 Long term (current) use of anticoagulants; Z95.811 Presence of heart assist device
CPT/HCPCS: 36415; 85610

== ENCOUNTER 2022-04-26 10:20 | Outpatient (CLI) | payer MEDICARE ==
[2022-04-26 11:18] LABS: INR 1.65 (0.87-1.13)
== END 2022-04-26 10:21 | disposition home or self-care (01) ==
LOC: LAB 10:20
PROVIDERS: ATTEND Internal Medicine Cardiovascular Disease
DX: I50.9 Heart failure, unspecified (principal); Z95.811 Presence of heart assist device; Z79.1 Long term (current) use of non-steroidal anti-inflammatories (NSAID)
CPT/HCPCS: 36415; 85610

== ENCOUNTER 2022-05-02 10:59 | Outpatient (CLI) | payer MEDICARE ==
[2022-05-02 11:39] LABS: INR 1.97 (0.87-1.13)
== END 2022-05-02 11:00 | disposition home or self-care (01) ==
LOC: LAB 10:59
PROVIDERS: ATTEND Internal Medicine Cardiovascular Disease
DX: I50.9 Heart failure, unspecified (principal); Z79.01 Long term (current) use of anticoagulants; Z95.811 Presence of heart assist device
CPT/HCPCS: 36415; 85610

== ENCOUNTER 2022-05-09 14:44 | Outpatient (CLI) | payer MEDICARE ==
[2022-05-09 15:45] LABS: INR 1.23 (0.87-1.13)
== END 2022-05-09 14:45 | disposition home or self-care (01) ==
LOC: LAB 14:44
PROVIDERS: ATTEND Internal Medicine Cardiovascular Disease
DX: I50.9 Heart failure, unspecified (principal); Z95.811 Presence of heart assist device; Z79.01 Long term (current) use of anticoagulants
CPT/HCPCS: 36415; 85610

== ENCOUNTER 2022-05-19 13:43 | Outpatient (CLI) | payer MEDICARE ==
[2022-05-19 14:15] LABS: INR 1.58 (0.87-1.13)
== END 2022-05-19 13:44 | disposition home or self-care (01) ==
LOC: LAB 13:43
PROVIDERS: ATTEND Internal Medicine Cardiovascular Disease
DX: I50.9 Heart failure, unspecified (principal); Z95.811 Presence of heart assist device; Z79.01 Long term (current) use of anticoagulants
CPT/HCPCS: 36415; 85610

== ENCOUNTER 2022-05-24 11:03 | Outpatient (CLI) | payer MEDICARE | END 2022-05-24 11:04 | disposition home or self-care (01) | LOC: LAB 11:03 | PROVIDERS: ATTEND Internal Medicine Cardiovascular Disease | DX: I50.9 Heart failure, unspecified (principal); Z95.811 Presence of heart assist device; Z79.01 Long term (current) use of anticoagulants | CPT/HCPCS: 36415; 85610 ==

== ENCOUNTER 2022-05-29 10:16 | Outpatient (CLI) | payer MEDICARE ==
[2022-05-29 11:12] LABS: INR 2.03 (0.87-1.13)
== END 2022-05-29 10:17 | disposition home or self-care (01) ==
LOC: LAB 10:16
PROVIDERS: ATTEND Internal Medicine Cardiovascular Disease
DX: I50.9 Heart failure, unspecified (principal); Z95.811 Presence of heart assist device; Z79.01 Long term (current) use of anticoagulants
CPT/HCPCS: 36415; 85610